=== PATIENT | male | born 1950 | race Caucasian/White ===

== ENCOUNTER 2016-11-07 08:21 | Inpatient (IN) | payer MEDICARE ==
[2016-11-07] VITALS (9 sets, daily range): BP systolic 112–144; BP diastolic 66–81
[~2016-11-07] VITALS: Ht 175.3 cm; Wt 112.6 kg
[~2016-11-07 08:21] MED LIST: ASMANEX; ASPI1TAB PO; BIDE400T PO; BUPR150T5 PO; BUPROPION PO; CARD120C3 PO; CATA0.3T PO; CLON-404 PO; CLOTCRE3 TOP; COLA100C2 OR; COMBVENT; COUM2.5T11 PO; COZA100T OR; DRIS50002 PO; FERR325T3 PO; FORADIL; FURO20TA2; FURO20TA2 PO; FURO40TA2; GLUC500T PO; GLUC850T; HYDR-4267 PO; HYDR25TA6 OR; HYDR50TA7 PO; IPRATROPIUM BROMIDE INH; IRON CR; IRON PO; KDUR PO; LISI40TA PO; LISI40TAB PO; LOPR50TA; LOSA100T36 PO; METF1000 PO; METO25TAB PO; OMEP20TA7 PO; OMEP40CA2 PO; POTA1TAB14 PO; PREDOPD OS; SERT-138 PO; SERT100T; SERTRALINE PO; SIMV40TA2; SIMV40TA2 PO; SIMV80TA OR; SIMV80TA PO; TERA10CA3 PO; TRIA1CR TOP; [UNRECOGNIZED DRUG - CODE]; [UNRECOGNIZED DRUG - CODE] OS; [UNRECOGNIZED DRUG - OTHER]
[2016-11-07 09:39] LABS: ABG BASE EXCESS 2.4 (-2.0-2.0); ABG DEVICE NASAL CANN; ABG HCO3 24.5 MEQ/L (22.0-26.0); ABG PARTIAL PRESSURE CO2 28.6 mmHg (35.0-45.0); ABG PARTIAL PRESSURE O2 72.9 mmHg (75.0-100.0); ABG STANDARD HCO3 26.6 MEQ/L (22.0-26.0); ABG TOTAL CO2 25.3 MEQ/L (23.0-31.0)
[2016-11-07 09:40] LABS: ADD MORPHOLOGY? YES; MEAN CORPUSCULAR HEMOGLOBIN 19.6 pg (27.0-33.0); MEAN CORPUSCULAR HGB CONC 29.3 g/dl (32.0-36.5); MEAN CORPUSCULAR VOLUME 66.9 fl (80.0-96.0); PLATELET COUNT, AUTOMATED 297 k/mm3 (150-450); RED CELL DISTRIBUTION WIDTH 17.1 % (11.5-14.5); WHITE BLOOD COUNT 10.1 K/mm3 (4.0-10.0)
[2016-11-07 10:02] LABS: INR 5.81
[2016-11-07 10:07] LABS: ANION GAP 11 MEQ/L (8-16); BLOOD UREA NITROGEN 25 MG/DL (7-18); CALCIUM LEVEL 8.6 MG/DL (8.8-10.2); CARBON DIOXIDE LEVEL 28 MEQ/L (21-32); CHLORIDE LEVEL 101 MEQ/L (98-107); GLOMERULAR FILTRATION RATE 53.8 (>49); GLUCOSE, FASTING 138 MG/DL (80-110); POTASSIUM SERUM 3.1 MEQ/L (3.5-5.1); SODIUM LEVEL 140 MEQ/L (136-145)
--- NOTE | 2016-11-07 10:09 | REP ---
CHEST, TWO VIEWS: HISTORY: Shortness of breath. COMPARISON: 12/22/2015. An increase in interstitial markings is present in the lungs. The heart is normal in size. The pulmonary vasculature is prominent. Degenerative change is present in the thoracic spine. There are old healed right rib fractures. IMPRESSION: There is an increase in interstitial markings in the lungs consistent with interstitial edema or infiltrates. Signed by Todd Shultz MD 11/07/2016 10:12 A
[2016-11-07] MEDS ORDERED: ISOVUE-370 76% 100ML VIAL (Q9967) As Ordered ONE (10:18)
[2016-11-07 10:27] LABS: DIFF SLIDE NUMBER 148
[2016-11-07 10:34] LABS: ANISOCYTOSIS 1+; HYPOCHROMASIA 3+; MICROCYTOSIS 3+; OVALOCYTES 1+
[2016-11-07] MEDS ORDERED: POTASSIUM CHLORIDE 10 MEQ SR TABLET As Ordered ONE (10:45)
[2016-11-07] MEDS ORDERED: FUROSEMIDE 40 MG/4 ML VIAL (J1940) As Ordered ONE ×2 (10:45→16:36)
--- NOTE | 2016-11-07 11:20 | REP ---
CT pulmonary angiogram: With IV contrast. History: Chest pain and shortness of breath. Comparison studies: December 16, 2015. Contrast dose: 75 cc's of Isovue [address] technique: Helical scanning is acquired and overlapping 1.5 mm and contiguous 3 mm axial images are reformatted. In addition, a 3-D work station is deployed to generate thick slab maximum intensity projection images in sagittal and coronal imaging projections. CT pulmonary angiographic findings: There is good opacification of the pulmonary arterial tree. There is no CT evidence of pulmonary embolism. The thoracic aorta enhances homogeneously and is normal in caliber, course and diameter. Vascular calcification is seen in the left coronary artery distribution. There is a small sliding-type hiatal hernia. No pleural or pericardial effusion is seen. There is a patchy mosaic-like pattern of ground-glass opacity throughout the lung archuleta upper and lower lobes. Some peripheral sparing. This pattern is a little more pronounced than on the December 16, 2015 study. No pleural effusion or mass lesion is seen. Cardiac enlargement is again noted. There are degenerative changes in the thoracic spine. No bony destructive lesion is appreciated. There is a granulomatous calcified nodule in the right upper lobe posteriorly. There are scattered mediastinal lymph nodes again noted unchanged from the comparison study of November 2015. Old healed rib fractures are again noted on the right. Impression: 1. No CT evidence of pulmonary embolism. 2. Patchy ground-glass opacity in the lung parenchyma may reflect pulmonary edema and CHF. It is a bit more pronounced although not new when compared with the November 2015 prior study. 3. Mild cardiomegaly and small hiatal hernia noted. Stable mediastinal lymph nodes. Signed by Jet Alvarez MD 11/07/2016 03:04 P
[2016-11-07] MEDS ORDERED: FURO40TA2 PO (11:22)
[2016-11-07] MEDS ORDERED: POTA10TA16 PO (11:22)
[2016-11-07] MEDS ORDERED: METO25TAB PO (11:22)
[2016-11-07] MEDS ORDERED: FINA5TAB2 PO (11:22)
[2016-11-07] MEDS ORDERED: ZOCO40TA PO (11:22)
[2016-11-07] MEDS ORDERED: VITA-122 PO (11:22)
[2016-11-07] MEDS ORDERED: DOCU100C PO (11:22)
[2016-11-07] MEDS ORDERED: WARF-18 PO ×2 (11:24)
[2016-11-07] MEDS ORDERED: DOCUSATE SODIUM 100 MG CAP PO PRN (13:45)
[2016-11-07] MEDS ORDERED: TRIAMCINOLONE ACET 0.1% CREAM 15 GM TOP PRN (13:45)
--- NOTE | 2016-11-07 14:13 | HPEPDOC ---
Medical History and Physical Date of Admission Nov 07, 2016 at 13:32 History and Physical PRIMARY CARE PROVIDER: [place] ATTENDING: Kaylee Vidal MD CHIEF COMPLAINT: Shortness of breath HISTORY OF PRESENT ILLNESS: This is a 66-year-old male past history of idiopathic pulmonary hemosiderosis, diastolic heart failure, diabetes, hypertension, hyperlipidemia, ulcerative sleep apnea on CPAP at home, atrial fibrillation on Coumadin, iron deficiency anemia, GERD who presents complaining of shortness of breath. Patient states he was walking his dog on Saturday when he started to develop shortness of breath on exertion. The patient states a few days later started developing a nonproductive cough. No fevers or chills. No sick contacts. No recent travels. Patient states is compliant with his Lasix. No changes in his diet. No new medications. Patient states he was told to 3 weeks ago but his INR was greater than 3. He also had an INR checked on Saturday however was not told the result yet. Patient does have super therapeutic INR today he does have minimal epistaxis. States he frequently has dry nose and occasionally has epistaxis. ED physician and checked FOBT which was negative. Patient does not have any overt bleeding at this time. PAST MEDICAL HISTORY:As per HPI PAST SURGICAL HISTORY: Left retina surgery, lung biopsy and bronchoscopy 2004, tonsillectomy, left middle finger amputation SOCIAL HISTORY: History tobacco abuse 30 years however quit many years ago. No alcohol or illicit drug use. Lives with family. FAMILY HISTORY: Noncontributory ALLERGIES: Please see below. REVIEW OF SYSTEMS: HEENT: Denies sore throat/headache CARDIOVASCULAR: Denies chest pain/palpitations RESPIRATORY: + shortness of breath/cough GASTROINTESTINAL: denies nausea/vomiting GENITOURINARY: Denies dysuria/urinary urgency. MUSCULOSKELETAL: Denies myalgias/arthralgias NEUROLOGICAL: Denies any focal weakness Rest of ROS negative. HOME MEDICATIONS: Please see below. PHYSICAL EXAMINATION: Vitals: (see below) General: No acute distress, laying comfortably in bed. HEENT: Moist mucous membranes. Nasal mucosa dry, with minimal dried blood. No active bleeding. Neck: No JVD or lymphadenopathy Cardiac: Irregularly irregular, tachycardic, No murmurs Pulm: Diminished breath sounds and coarse crackles at the bases b/l. No wheezing , no rhonchi Abd: NT/ND + BS. Obese Ext: No edema or cyanosis LABORATORY DATA: See below. IMAGING: CXR 11/07/16 IMPRESSION: There is an increase in interstitial markings in the lungs consistent with interstitial edema or infiltrates. CTA Chest 11/07/16 Impression: 1. No CT evidence of pulmonary embolism. 2. Patchy ground-glass opacity in the lung parenchyma may reflect pulmonary edema and CHF. It is a bit more pronounced although not new when compared with the November 2015 prior study. 3. Mild cardiomegaly and small hiatal hernia noted. Stable mediastinal lymph nodes. MICROBIOLOGY: Please see below. ASSESSMENT/PLAN: Acute decompensated diastolic heart failure- may be related to the patient's current rapid ventricular response. We'll trend cardiac enzymes and obtain echocardiogram. IV Lasix 40 mg every 4 hours. Fluid resections, low-sodium diet. Daily weight. Last EF in 11/2015 was 70% with severe left atrial enlargement. Acute bronchitis- Mild leukocytosis. Afebrile. Consider Antibiotics once INR has trended down as most Abx interfere with Coumadin metabolism. Coumadin coagulopathy- minimal epistaxis. No overt bleeding. ED physician has checked FOBT which is negative. Hemoglobin 8.5 however baseline is between 8.8- 10.1. Given acute decompensated heart failure, and minimal epistaxis we will give patient's oral dose of vitamin K. Repeat INR in a.m. Continue to monitor for bleeding. Atrial fibrillation with rapid ventricular rate- we'll continue the patient's metoprolol. Hold Coumadin given supratherapeutic INR. Restart Coumadin when INR is below 2. Hypertension- continue home meds History of idiopathic pulmonary hemosiderosis Obstructive sleep apnea- patient told to bring his CPAP from home, and may use it while in the hospital. Diabetes mellitus- hold on by mouth meds. Slice counseling for now. Hyperlipidemia- continue statin Iron deficiency anemia- continue for sulfate DVT prophylaxis- patient currently has a supratherapeutic INR. Patient was followed by Dr. Flanagan starting 11/08/16 at 7 AM. Vital Signs Blood pressure 125/67, heart rates 116, respiratory rate of 16, afebrile, oxygen saturation 89% or room air. Laboratory Data Labs 24H Laboratory Tests 2 11/07/16 08:57: B-Type Natriuretic Peptide 95.8 11/07/16 09:24: Activated Partial Thromboplast Time 76.4H, Anion Gap 11, Anisocytosis 1+, Atypical Lymphocytes 1, White Blood Count 10.1H, Red Blood Count 4.34, Hemoglobin 8.5L, Hematocrit 29.0L, Mean Corpuscular Volume 66.9L, Mean Corpuscular Hemoglobin 19.6L, Mean Corpuscular Hemoglobin Concent 29.3L, Red Cell Distribution Width 17.1H, Platelet Count 297, Neutrophils (%) (Auto) , Lymphocytes (%) (Auto) , Monocytes (%) (Auto) , Eosinophils (%) (Auto) , Basophils (%) (Auto) , Neutrophils # (Auto) , Lymphocytes # (Auto) , Monocytes # (Auto) , Eosinophils # (Auto) , Basophils # (Auto) , Blood Urea Nitrogen 25H, Creatinine 1.40H, Sodium Level 140, Potassium Level 3.1L, Chloride Level 101, Carbon Dioxide Level 28, Calcium Level 8.6L, Total Creatine Kinase 92, Creatine Kinase MB 2.4, Creatine Kinase MB Relative Index 2.60, Glomerular Filtration Rate 53.8, Hypochromasia 3+, Large Unclassified Cells # , Large Unclassified Cells % , Lymphocytes (Manual) 5L, Microcytosis 3+, Monocytes (Manual) 3, Neutrophils 91H, Ovalocytes 1+, Platelet Estimate NORMAL, Prothromb Time International Ratio 5.81*H, Prothrombin Time 52.0H, Troponin I < 0.02 11/07/16 09:28: Arterial Blood pH 7.550H, Arterial Blood Partial Pressure CO2 28.6L, Arterial Blood Partial Pressure O2 72.9L, Arterial Blood Total CO2 25.3, Arterial Blood HCO3 24.5, Arterial Blood Base Excess 2.4H, Arterial Blood Oxygen Saturation 95.9, Blood Gas Bicarbonate Standard 26.6H, Oxygen Delivery Device NASAL KATE CBC/BMP Laboratory Tests 11/07/16 09:24 Calcium Level 8.6 L, Total Creatine Kinase 92, Red Blood Count 4.34, Mean Corpuscular Volume 66.9 L, Mean Corpuscular Hemoglobin 19.6 L, Mean Corpuscular Hemoglobin Concent 29.3 L, Red Cell Distribution Width 17.1 H, Neutrophils (%) ( Auto) , Lymphocytes (%) (Auto) , Monocytes (%) (Auto) , Eosinophils (%) (Auto) , Basophils (%) (Auto) , Neutrophils # (Auto) , Lymphocytes # (Auto) , Monocytes # (Auto) , Eosinophils # (Auto) , Basophils # (Auto) Microbiology Microbiology 11/07/16 Blood Culture, Received Pending 11/07/16 Blood Culture, Received Pending 11/07/16 Influenza Virus Type A Antigen - Final, Complete 11/07/16 Influenza Virus Type B Antigen - Final, Complete Home Medications Scheduled Bupropion Hcl (Bupropion HCl Sr) 150 Mg Tab 150 MG PO DAILY Cholecalciferol (Vitamin D3) 1,000 Unit Tab 1,000 UNIT PO DAILY Ferrous Sulfate (Ferrous Sulfate) 325 Mg Tab 325 MG PO DAILY Finasteride (Finasteride) 5 Mg Tab 5 MG PO DAILY Furosemide (Furosemide) 40 Mg Tab 40 MG PO BID Metformin Hydrochloride (Metformin HCl) 1,000 Mg Tab 1,000 MG PO BIDWM Metoprolol Tartrate (Metoprolol Tartrate) 25 Mg Tab 25 MG PO BID Omeprazole (Omeprazole) 40 Mg Cap 40 MG PO ACB Potassium Chloride (Potassium Chloride ER) 10 Meq Tab 20 MEQ PO BIDWM Sertraline HCl (Sertraline HCl) 100 Mg Tab 200 MG PO DAILY Simvastatin - High Dose (Zocor) 40 Mg Tab 40 MG PO QHS Terazosin Hcl (Terazosin HCl) 10 Mg Cap 10 MG PO QHS Warfarin Sod (Warfarin Sodium) 2.5 Mg Tab 2.5 MG PO 3XW SATURDAY,SATURDAY,SATURDAY Warfarin Sod (Warfarin Sodium) 2.5 Mg Tab 5 MG PO 4XWK SATURDAY,SATURDAY,SATURDAY,SATURDAY Scheduled PRN Docusate Sodium (Docusate Sodium) 100 Mg Cap 100 MG PO BID PRN PRN CONSTIPATION Triamcinolone Acet (Triamcinolone Acetonide 0.1% Crm) 1 Dose/15 Gm Cr 1 DOSE TOP BID PRN PRN RASH/ITCHING Allergies Coded Allergies: Albuterol (Unverified Allergy, Unknown, 11/23/15) Amlodipine (Unverified Allergy, Unknown, 06/27/15) Atenolol (Unverified Allergy, Unknown, HEADACHE, 06/27/15) KAYLEE VIDAL MD Nov 07, 2016 14:13
[2016-11-07] MEDS ORDERED: GLUCAGON FOR INJ 1 MG VIAL (J1610) SC PRN (15:30)
[2016-11-07] MEDS ORDERED: DEXTROSE 50% 50 ML SYRINGE IV PRN (15:30)
[2016-11-07] MEDS ORDERED: GLUCOSE 4 GM CHEW TABLET PO PRN (15:30)
[2016-11-07] MEDS ORDERED: PHYTONADIONE 2.5 MG **1/2 TAB PO ONE (16:00)
[2016-11-07] MEDS ORDERED: METOPROLOL TART 50 MG TAB PO ONE (16:00)
[2016-11-07] MEDS ORDERED: METOPROLOL TART 50 MG TAB As Ordered ONE (16:36)
[2016-11-07] MEDS: VITAMIN D 1,000 INTERNATIONAL UNITS TABLET PO SCH (16:39)
[2016-11-07] MEDS: buPROPion **SR TABLET** (ZYBAN) 150MG PO SCH (16:39)
[2016-11-07] MEDS: FINASTERIDE 5 MG TAB PO SCH (16:40)
[2016-11-07] MEDS: FERROUS SULFATE 325MG TAB PO SCH (16:40)
[2016-11-07] MEDS: OMEPRAZOLE 20 MG CAP PO SCH (16:40)
[2016-11-07] MEDS: FUROSEMIDE 40 MG/4 ML VIAL (J1940) IV SCH ×2 (16:40→20:19)
[2016-11-07] MEDS: SERTRALINE 100 MG TAB PO SCH (16:40)
[2016-11-07] MEDS: HumaLOG INSULIN (NovoLOG) PER UNIT SC SCH ×2 (17:30→21:00)
--- NOTE | 2016-11-07 18:28 | EDDOCDS ---
Physician Documentation [facility] Name: Rajesh Quintero Age: 66 yrs Sex: Male : 1950 Arrival Date: 11/07/2016 Time: 08:21 Bed Admit Hold Private MD: Leeanne Godfrey PA-C Disposition: 11/07/16 12:44 Hospitalization ordered by Willie Vidal for Inpatient Admission. Preliminary diagnosis are Acute pulmonary edema, Anemia, unspecified, Hypokalemia. - Bed requested for PCU. - Status is Inpatient Admission. aa3 - Condition is Stable. - Problem is new. - Symptoms are unchanged. Historical: - Allergies: Albuterol (fast heart rate); Atenolol (Wheezing); - Home Meds: 1. bupropion HCl 150 mg Oral TbER 1 tab once daily 2. cholecalciferol (vitamin D3) 1,000 unit oral tab daily 3. clotrimazole 1 % Topical soln 2 times per day 4. docusate sodium 100 mg Oral cap 1 cap 2 times per day 5. ferrous sulfate 325 mg (65 mg iron) Oral cpER daily 6. finasteride 5 mg oral tab 1 tab once daily 7. furosemide 40 mg Oral tab 1 tab 2 times per day 8. metformin 1,000 mg Oral tab 1 tab 2 times per day 9. metoprolol tartrate 25 mg Oral tab 2 times per day 10. omeprazole 20 mg Oral cpDR 2 caps once daily 11. potassium chloride 10 mEq Oral TbER 2 tabs 2 times per day 12. prednisolone acetate 1 % Opht drps 1 drop 4 times per day 13. Zoloft 100 mg Oral tab 2 tabs once daily 14. simvastatin 80 mg Oral tab daily 15. terazosin 10 mg oral cap 1 cap once daily 16. triamcinolone acetonide 0.1 % Topical oint 2 times per day 17. warfarin 2.5 mg Oral tab 1 tab once daily - PMHx: Atrial Fib; Depression; Diabetes - NIDDM: controlled; Heart failure; hyperlipidemia; Hypertension; CHF; COPD; - PSHx: left eye retinal reattachment; lung biopsy; bronchoscopy; Tonsillectomy; left middle finger amputation; - Social history: Smoking status: Patient states former smoker of tobacco. No barriers to communication noted, The patient speaks fluent French, Speaks appropriately for age. - Family history: No immediate family members are acutely ill. - : The pt / caregiver states he / she is on anticoagulants: coumadin. Home medication list is obtained from the patient. - Exposure Risk Screening:: None identified. Vital Signs: 11/07 08:41 BP 125 / 67; Pulse 116; Resp 16; Temp 99.3(TE); Pulse Ox 89% on R/A; Weight 118.84 kg / mlb1 262 lbs (R); Height 5 ft. 9 in. (175.26 cm) (R); Pain 0/10; 09:36 BP 127 / 78 (auto/); mb9 10:08 BP 138 / 70 (auto/); mb9 10:36 BP 140 / 72 (auto/); mb9 11:05 Pulse 106 MON; Pulse Ox 95% on 3 lpm NC; mb9 11:06 BP 123 / 70 (auto/); mb9 11:36 BP 109 / 57 (auto/); mb9 11:36 Pulse 100 MON; Pulse Ox 92% on 3 lpm NC; mb9 12:06 BP 153 / 76 (auto/); mb9 12:06 Pulse 108 MON; Pulse Ox 91% on 3 lpm NC; mb9 12:31 Pulse 106 MON; Pulse Ox 86% on 3 lpm NC; mb9 12:35 Pulse 108 MON; Pulse Ox 94% on 4 lpm NC; mb9 12:36 BP 147 / 81 (auto/); mb9 12:36 Pulse 110 MON; Pulse Ox 93% on 3 lpm NC; mb9 13:06 BP 165 / 79 (auto/); mb9 13:06 Pulse 120 MON; Pulse Ox 93% on 3 lpm NC; mb9 13:36 BP 129 / 73 (auto/); mb9 13:36 Pulse 114 MON; Pulse Ox 92% on 3 lpm NC; mb9 14:06 BP 140 / 81 (auto/); mb9 14:06 BP 140 / 81; Pulse 116 MON; Resp 17; Temp 97.4(T); Pulse Ox 93% on 3 lpm NC; mb9 08:41 Body Mass Index 38.69 (118.84 kg, 175.26 cm) mlb1 MDM: 08:52 Civil Celebrant/Pulse Ox/q 30 min VS ordered. br1 08:52 IV Saline Lock ordered. br1 08:52 Rhythm Strip to chart ordered. br1 08:52 Undress patient appropriately for examination ordered. br1 08:53 Basic Metabolic Profile Ordered. EDMS 08:53 CBC with Diff Ordered. EDMS 08:53 Cardiac Injury Profile Ordered. EDMS 08:53 Troponin Ordered. EDMS 08:53 PT/INR Ordered. EDMS 08:53 PTT Ordered. EDMS 08:53 Chest, 2 View (pa\E\lat) Ordered. EDMS 08:54 -Influenza A&B Rapid Antigen - Nose Ordered. EDMS 08:54 ECG WITH READING ER PHYS+CARDIAG ordered. EDMS 09:20 Call Respiratory ordered. br1 09:22 BNP Ordered. EDMS 09:22 -Arterial Blood Gas Ordered. EDMS 09:22 Call Respiratory complete. lbd 09:42 Oxygen at 4L/Min NC or Home dosage ordered. br1 09:42 RBC MORPH PROF NO CHARGE Ordered. EDMS 09:51 CBC with Diff Reviewed. br1 09:51 -Arterial Blood Gas Reviewed. br1 09:51 -Influenza A&B Rapid Antigen - Nose Reviewed. br1 10:07 -Blood Culture (Adults Only), peripheral from different site, or from device/port/PICC br1 etc. if present ordered. 10:07 PT/INR Reviewed. br1 10:07 PTT Reviewed. br1 10:08 -Blood Culture Ordered. EDMS 10:09 BED REQUEST+ADM ordered. EDMS 10:10 Furosemide 40 mg IVP once ordered. br1 10:10 Potassium Chloride Extended Release Tablet 40 mEq PO once ordered. br1 10:11 CT Chest Angio R/O PE Ordered. EDMS 10:27 -Blood Culture (Adults Only), peripheral from different site, or from device/port/PICC lbd etc. if present complete. 10:29 DIFFERENTIAL NO CHARGE Ordered. EDMS 10:29 BLOOD CULTURES Ordered. EDMS 11:12 Financial registration complete. mm15 11:22 [facility] [place] was [place] into [employer] and attached to record. mm15 11:45 Basic Metabolic Profile Reviewed. br1 11:45 CBC with Diff Reviewed. br1 11:45 Cardiac Injury Profile Reviewed. br1 11:45 Troponin Reviewed. br1 11:45 BNP Reviewed. br1 11:45 RBC MORPH PROF NO CHARGE Reviewed. br1 11:45 Chest, 2 View (pa\E\lat) Reviewed. br1 11:45 CT Chest Angio R/O PE Reviewed. br1 13:37 Admission / Observation Status ordered. EDMS 13:38 ECHOCARD,DOPPLER/COLOR FLOW ordered. EDMS 13:39 CARDIAC INJURY PROFILE Ordered. EDMS 13:39 TROPONIN Ordered. EDMS 13:41 COMPLETE BLOOD COUNT Ordered. EDMS 13:42 BASIC METABOLIC PROFILE Ordered. EDMS 13:42 MAGNESIUM LEVEL Ordered. EDMS 15:38 2 GRAM SODIUM DIET ordered. EDMS Administered Medications: 10:50 Drug: Furosemide 40 mg [furosemide 10 mg/mL injection solution (4 mL)] Route: IVP; kpj Site: right antecubital; 10:50 Drug: Potassium Chloride 40 mEq [potassium chloride ER 10 mEq tablet,extended release kpj (4 tabs)] Route: PO; Signatures: Dispatcher [employer] EDMS Gisselle Aguirre, Teacher Unit lbd Audrey Nath RN RN kpj Marin Jones RN RN mlb1 Stephen Raines MD MD br1 Janet Yusuf mm15 Pretty GoveaRN RN aa3 Marin Girard,RN RN mb9 The chart was reviewed and I authenticate all verbal orders and agree with the evaluation and treatment provided.Corrections: (The following items were deleted from the chart) 15:38 11:53 CARDIAC DIET PLASTIC TAPIA+DIET ordered. EDMS EDMS 15:38 13:38 2 GRAM SODIUM DIET ordered. EDMS EDMS Attachments: 11:22 [facility] [place] [id number] MTDD
--- NOTE | 2016-11-07 18:28 | EDDOCDS ---
Nurse's Notes [facility] Name: Rajesh Quintero Age: 66 yrs Sex: Male : 1950 Arrival Date: 11/07/2016 Time: 08:21 Bed Admit Hold Private MD: Leeanne Godfrey PA-C Diagnosis: Acute pulmonary edema;Anemia, unspecified;Hypokalemia Presentation: 11/07 08:34 Presenting complaint: Patient states: SOB began two days ago. Adult Sepsis Screening: mlb1 The patient does not have new or worsening altered mentation. Patient's respiratory rate is less than 22. Systolic blood pressure is greater than 100. Patient has a qSOFA score of 0- Negative Sepsis Screen. Suicide/Homicide risk assessment- the patient denies having any suicidal and/or homicidal ideations and does not present with any other emotional, behavioral or mental health complaints. 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 Transition of care: patient was not received from another setting of care. 08:34 Acuity: URSULA Level 3 mlb1 08:34 Method Of Arrival: Walkin/Carried/Asstd mlb1 Triage Assessment: 08:42 General: Appears in no apparent distress, Behavior is appropriate for age, cooperative. mlb1 Pain: Denies pain. Respiratory: Onset: The symptoms/episode began/occurred gradually, Airway is patent Respiratory effort is even, unlabored. Historical: - Allergies: Albuterol (fast heart rate); Atenolol (Wheezing); - Home Meds: 1. bupropion HCl 150 mg Oral TbER 1 tab once daily 2. cholecalciferol (vitamin D3) 1,000 unit oral tab daily 3. clotrimazole 1 % Topical soln 2 times per day 4. docusate sodium 100 mg Oral cap 1 cap 2 times per day 5. ferrous sulfate 325 mg (65 mg iron) Oral cpER daily 6. finasteride 5 mg oral tab 1 tab once daily 7. furosemide 40 mg Oral tab 1 tab 2 times per day 8. metformin 1,000 mg Oral tab 1 tab 2 times per day 9. metoprolol tartrate 25 mg Oral tab 2 times per day 10. omeprazole 20 mg Oral cpDR 2 caps once daily 11. potassium chloride 10 mEq Oral TbER 2 tabs 2 times per day 12. prednisolone acetate 1 % Opht drps 1 drop 4 times per day 13. Zoloft 100 mg Oral tab 2 tabs once daily 14. simvastatin 80 mg Oral tab daily 15. terazosin 10 mg oral cap 1 cap once daily 16. triamcinolone acetonide 0.1 % Topical oint 2 times per day 17. warfarin 2.5 mg Oral tab 1 tab once daily - PMHx: Atrial Fib; Depression; Diabetes - NIDDM: controlled; Heart failure; hyperlipidemia; Hypertension; CHF; COPD; - PSHx: left eye retinal reattachment; lung biopsy; bronchoscopy; Tonsillectomy; left middle finger amputation; - Social history: Smoking status: Patient states former smoker of tobacco. No barriers to communication noted, The patient speaks fluent Ukrainian, Speaks appropriately for age. - Family history: No immediate family members are acutely ill. - : The pt / caregiver states he / she is on anticoagulants: coumadin. Home medication list is obtained from the patient. - Exposure Risk Screening:: None identified. Screenin:29 Screening information is obtained from the patient. Fall risk: No risks identified. mcp Assistance ADL's: requires no assistance with activities of daily living. Abuse/DV Screen: The patient / caregiver reports he/she is: not in a situation that causes fear, pain or injury. Nutritional screening: No deficits noted. Advance Directives: There is no active DNR order. home support is adequate. Assessment: 09:27 General: Appears in no apparent distress, comfortable, Behavior is cooperative. Pain: mcp Denies pain. Neurological: No deficits noted. Cardiovascular: Rhythm is atrial fibrillation With PVC's. Respiratory: Airway is patent Respiratory effort is even, unlabored, Breath sounds are clear bilaterally. Breath sounds are diminished bilaterally. Derm: Skin is pink, warm & dry. 10:15 General: Appears in no apparent distress, Behavior is cooperative. Neurological: mcp Respiratory: Airway is patent Respiratory effort is even, unlabored. Derm: Skin is pink, warm & dry. 10:20 General: Pt stood at side of bed to void--voided small amount dark lawrence urine. Pts mcp pulse ox dropped to 80's--oxygen increased to 3L NC and Dr Raines notified. 10:59 General: Appears in no apparent distress, comfortable, Behavior is cooperative. Pain: mcp Denies pain. Neurological: No deficits noted. Respiratory: Airway is patent Respiratory effort is even, unlabored. Derm: Skin is pink, warm & dry. 11:40 General: Appears in no apparent distress, comfortable, Behavior is appropriate for age, mb9 cooperative. Pain: Denies pain. Neurological: Level of Consciousness is awake, alert, Oriented to person, place, time. Respiratory: Airway is patent Breath sounds are clear bilaterally. Breath sounds are diminished in left posterior lower lobe, right posterior middle lobe and right posterior lower lobe. 12:37 Reassessment: Patient appears in no apparent distress at this time. Adult Sepsis mb9 Screening: The patient does not have new or worsening altered mentation. Patient's respiratory rate is less than 22. Systolic blood pressure is greater than 100. Patient has a qSOFA score of 0- Negative Sepsis Screen. General: Appears in no apparent distress, comfortable, Behavior is cooperative. Pain: The patient reports he/she is under the care of a pattern painter and has a current pain contract. Respiratory: Airway is patent Breath sounds are clear bilaterally. Breath sounds are diminished in left posterior lower lobe, right posterior middle lobe and right posterior lower lobe. 13:29 Reassessment: Patient appears in no apparent distress at this time. General: Dr Vidal in mb9 to see pt.. Respiratory: Airway is patent Respiratory effort is even, unlabored. 14:10 Reassessment: Patient appears in no apparent distress at this time. Adult Sepsis mb9 Screening: The patient does not have new or worsening altered mentation. Patient's respiratory rate is less than 22. Systolic blood pressure is greater than 100. Patient has a qSOFA score of 0- Negative Sepsis Screen. General: Appears in no apparent distress, comfortable, Behavior is fussy. Pain: Denies pain. Respiratory: Airway is patent Respiratory effort is even, unlabored. 15:00 General: Report taken from Miguelangel Girard RN. All further charting will be in [facility].. aa3 Vital Signs: 08:41 BP 125 / 67; Pulse 116; Resp 16; Temp 99.3(TE); Pulse Ox 89% on R/A; Weight 118.84 kg mlb1 (R); Height 5 ft. 9 in. (175.26 cm) (R); Pain 0/10; 09:36 BP 127 / 78 (auto/); mb9 10:08 BP 138 / 70 (auto/); mb9 10:36 BP 140 / 72 (auto/); mb9 11:05 Pulse 106 MON; Pulse Ox 95% on 3 lpm NC; mb9 11:06 BP 123 / 70 (auto/); mb9 11:36 BP 109 / 57 (auto/); mb9 11:36 Pulse 100 MON; Pulse Ox 92% on 3 lpm NC; mb9 12:06 BP 153 / 76 (auto/); mb9 12:06 Pulse 108 MON; Pulse Ox 91% on 3 lpm NC; mb9 12:31 Pulse 106 MON; Pulse Ox 86% on 3 lpm NC; mb9 12:35 Pulse 108 MON; Pulse Ox 94% on 4 lpm NC; mb9 12:36 BP 147 / 81 (auto/); mb9 12:36 Pulse 110 MON; Pulse Ox 93% on 3 lpm NC; mb9 13:06 BP 165 / 79 (auto/); mb9 13:06 Pulse 120 MON; Pulse Ox 93% on 3 lpm NC; mb9 13:36 BP 129 / 73 (auto/); mb9 13:36 Pulse 114 MON; Pulse Ox 92% on 3 lpm NC; mb9 14:06 BP 140 / 81 (auto/); mb9 14:06 BP 140 / 81; Pulse 116 MON; Resp 17; Temp 97.4(T); Pulse Ox 93% on 3 lpm NC; mb9 08:41 Body Mass Index 38.69 (118.84 kg, 175.26 cm) mlb1 Vitals: 08:41 Log In Time: November 07, 2016 at 08:19. mlb1 ED Course: 08:23 Patient visited by Janet Yusuf. mm15 08:23 Leeanne Godfrey is Private Physician. mm15 08:23 Patient moved to Waiting mm15 08:34 Patient visited by Marin Jones, RN. mlb1 08:35 Triage Initiated mlb1 08:42 Patient visited by Marin Jones, RN. mlb1 08:42 Patient moved to 15 mlb1 09:09 Stephen Raines MD is Attending Physician. br1 09:18 EKG done. (by ED staff). Reviewed by Stephen Raines MD. rn1 09:20 Patient visited by Stephen Raines MD. br1 09:26 BNP Sent. mcp 09:26 PTT Sent. [facility] 09:26 PT/INR Sent. [facility] 09:26 Basic Metabolic Profile Sent. [facility] 09:26 CBC with Diff Sent. [facility] 09:26 Cardiac Injury Profile Sent. [facility] 09:26 Troponin Sent. [facility] 09:27 Inserted saline lock: 20 gauge in right antecubital area and blood collected. The [facility] patient tolerated the procedure well. Labs drawn. (by ED staff). Sent per order to lab. 09:30 Patient visited by Alva Gonzalez RN. [facility] 09:30 The patient / caregiver is instructed regarding the plan of care and ED course. Patient [facility] has correct armband on for positive identification. Placed in gown. Bed in low position. Call light in reach. Side rails up X2. Adult w/ patient. site monitor on. Pulse ox on. NIBP on. 09:35 -Arterial Blood Gas Sent. kt1 10:00 Notified attending ED physician of Critical lab value. Dr Raines notified of PT 52.0 kpj and INR 5.81. 10:34 Chest, 2 View (pa\E\lat) Returned. EDMS 10:40 BLOOD CULTURES Sent. kpj 10:40 DIFFERENTIAL NO CHARGE Sent. kpj 10:59 Patient visited by Alva Gonzalez RN. [facility] 11:21 CT Chest Angio R/O PE Returned. EDMS 11:22 [facility] Payment Agreement was scanned into [employer] and attached to record. mm15 11:40 Patient visited by Marin Girard,LENO. mb9 12:37 Patient visited by Marin Girard RN. mb9 12:44 Willie Vidal is Hospitalizing Provider. br1 13:29 Diet tray given. mb9 14:06 No procedures done that require assistance. mb9 14:16 Patient moved to Admit Hold kpj 15:12 Patient moved to 21 kpj 15:12 Patient moved to Admit Hold kpj 15:32 CT Chest Angio R/O PE Returned. EDMS Administered Medications: 10:50 Drug: Furosemide 40 mg [furosemide 10 mg/mL injection solution (4 mL)] Route: IVP; kpj Site: right antecubital; 10:50 Drug: Potassium Chloride 40 mEq [potassium chloride ER 10 mEq tablet,extended release kpj (4 tabs)] Route: PO; Output: 11:36 Urine: 100.00ml (Voided); Total: 100.00ml. mb9 12:21 Urine: 100.00ml (Voided); Total: 200.00ml. mb9 12:38 Urine: 100.00ml (Voided); Total: 300.00ml. mb9 14:06 Urine: 100.00ml (Voided); Total: 400.00ml. mb9 RT: 09:35 ABG's drawn from right radial artery pressure held for 5 minutes no bleeding noted kt1 pressure bandage applied specimen sent pt. tolerated well. Order Results: Lab Order: Basic Metabolic Profile; SPEC'M 11/07/16 09:24 Test: GLUCOSE, FASTING; Value: 138; Range: 80-110; Abnormal: Above high normal; Units: MG/DL; Status: F Test: BLOOD UREA NITROGEN; Value: 25; Range: 7-18; Abnormal: Above high normal; Units: MG/DL; Status: F Test: CREATININE FOR GFR; Value: 1.40; Range: 0.70-1.30; Abnormal: Above high normal; Units: MG/DL; Status: F Test: GLOMERULAR FILTRATION RATE; Value: 53.8; Range: >49; Status: F Test: SODIUM LEVEL; Value: 140; Range: 136-145; Units: MEQ/L; Status: F Test: POTASSIUM SERUM; Value: 3.1; Range: 3.5-5.1; Abnormal: Below low normal; Units: MEQ/L; Status: F Test: CHLORIDE LEVEL; Value: 101; Range: 98-107; Units: MEQ/L; Status: F Test: CARBON DIOXIDE LEVEL; Value: 28; Range: 21-32; Units: MEQ/L; Status: F Test: ANION GAP; Value: 11; Range: 8-16; Units: MEQ/L; Status: F Test: CALCIUM LEVEL; Value: 8.6; Range: 8.8-10.2; Abnormal: Below low normal; Units: MG/DL; Status: F Test Note: ; Units are mL/min/1.73 m2 Chronic Kidney Disease Staging per NKF: Stage I & II GFR >=60 Normal to Mildly Decreased Stage III GFR 30-59 Moderately Decreased Stage IV GFR 15-29 Severely Decreased Stage V GFR <15 Very Little GFR Left ESRD GFR <15 on FARM SERVICE ADVISER Lab Order: CBC with Diff; SPEC'M 11/07/16 09:24 Test: WHITE BLOOD COUNT; Value: 10.1; Range: 4.0-10.0; Abnormal: Above high normal; Units: K/mm3; Status: F Test: RED BLOOD COUNT; Value: 4.34; Range: 4.30-6.10; Units: M/mm3; Status: F Test: HEMOGLOBIN; Value: 8.5; Range: 14.0-18.0; Abnormal: Below low normal; Units: g/dl; Status: F Test: HEMATOCRIT; Value: 29.0; Range: 42.0-52.0; Abnormal: Below low normal; Units: %; Status: F Test: MEAN CORPUSCULAR VOLUME; Value: 66.9; Range: 80.0-96.0; Abnormal: Below low normal; Units: fl; Status: F Test: MEAN CORPUSCULAR HEMOGLOBIN; Value: 19.6; Range: 27.0-33.0; Abnormal: Below low normal; Units: pg; Status: F Test: MEAN CORPUSCULAR HGB CONC; Value: 29.3; Range: 32.0-36.5; Abnormal: Below low normal; Units: g/dl; Status: F Test: RED CELL DISTRIBUTION WIDTH; Value: 17.1; Range: 11.5-14.5; Abnormal: Above high normal; Units: %; Status: F Test: PLATELET COUNT, AUTOMATED; Value: 297; Range: 150-450; Units: k/mm3; Status: F Test: NEUTROPHILS %; Range: 36.0-66.0; Abnormal: Above high normal; Units: %; Status: F Test: LYMPH %; Range: 24.0-44.0; Abnormal: Below low normal; Units: %; Status: F Test: MONO %; Range: 0.0-5.0; Units: %; Status: F Test: EOS %; Range: 0.0-3.0; Units: %; Status: F Test: BASO %; Range: 0.0-1.0; Units: %; Status: F Test: LARGE UNSTAINED CELL %; Range: 0.0-4.0; Units: %; Status: F Test: NEUTROPHILS #; Range: 1.8-7.7; Abnormal: Above high normal; Units: K/mm3; Status: F Test: LYMPH #; Range: 1.5-4.5; Abnormal: Below low normal; Units: K/mm3; Status: F Test: MONO #; Range: 0.0-0.8; Units: K/mm3; Status: F Test: EOS #; Range: 0.0-0.50; Units: K/mm3; Status: F Test: BASO #; Range: 0.0-0.2; Units: K/mm3; Status: F Test: LARGE UNSTAINED CELL #; Range: 0.0-0.4; Units: K/mm3; Status: F Test Note: ; --- 11/07/16 1027 --- NEUT % previously reported as: 89.7 H % Test: NEUTROPHILS; Value: 91; Range: 35-75; Abnormal: Above high normal; Units: %; Status: F Test: LYMPHOCYTES; Value: 5; Range: 16-52; Abnormal: Below low normal; Units: %; Status: F Test: MONOCYTES; Value: 3; Range: 0-8; Units: %; Status: F Test: ATYPICAL LYMPH; Value: 1; Range: 0-5; Units: %; Status: F Test: HYPOCHROMASIA; Value: 3+; Status: F Test: ANISOCYTOSIS; Value: 1+; Status: F Test: MICROCYTOSIS; Value: 3+; Status: F Test: OVALOCYTES; Value: 1+; Status: F Lab Order: Cardiac Injury Profile; SPEC11/07/16 09:24 Test: CPK CREATINE PHOSPHOKINASE; Value: 92; Range: 39-308; Units: U/L; Status: F Test: CK-MB VALUE MASS; Value: 2.4; Range: 0.0-3.6; Units: NG/ML; Status: F Test: MB/CK RELATIVE INDEX; Value: 2.60; Range: < OR =4; Status: F Test Note: ; DIAGNOSIS CRITERIA MMB ng/ml Relative Index (RI) NON-AMI < or = 5 N/A BHAGAT ZONE > 5 < or = 4 AMI > 5 > 4 Lab Order: Troponin; SPEC'11/07/16 09:24 Test: TROPONIN I; Value: < 0.02; Range: < 0.10; Units: NG/ML; Status: F Test Note: ; Troponin I Reference Interval for [employer] [place] LOCI: 99th Percentile= 0.00-0.045 ng/ml Risk Stratification: <= 0.10 ng/ml Decreased Risk for Adverse Clinical Events. 0.10-1.50 ng/ml Increased Risk for Adverse Clinical Events. Evaluation of additional criterion and/or repeat testing in 2-6 hours is suggested to rule out myocardial damage. >= 1.50 ng/ml Indicative of Myocardial Injury. Lab Order: PT/INR; SPEC'M 11/07/16 09:24 Test: PROTHROMBIN TIME; Value: 52.0; Range: 12.3-14.5; Abnormal: Above high normal; Units: SECONDS; Status: F Test: INR; Value: 5.81; Abnormal: Above upper panic limits; Status: F Test Note: ; THERAPUTIC HUMAN INR VALUES INDICATIONS NORMAL RANGES PROPHYLAXIS/TREATMENT OF: VENOUS THROMBOSIS 2.0-3.0 PULMONARY EMBOLISM 2.0-3.0 PREVENTION OF SYSTEMIC EMBOLISM FROM: TISSUE HEART VALVES 2.0-3.0 ACUTE MYOCARDIAL INFARCTION 2.0-3.0 VALVULAR HEART DISEASE 2.0-3.0 ATRIAL FIBRILLATION 2.0-3.0 MECHANICAL VALVES(HIGH RISK) 2.5-3.5 RECURRENT MYOCARDIAL INFARCTION 2.5-3.5 Lab Order: PTT; SPEC'M 11/07/16 09:24 Test: PARTIAL THROMBOPLASTIN TIME; Value: 76.4; Range: 26.6-37.1; Abnormal: Above high normal; Units: SECONDS; Status: F Lab Order: -Influenza A&B Rapid Antigen - Nose; SPEC'M 11/07/16 08:57 Test: INFLUENZA A RAPID SCR by ICA; Value: INFLUENZA A RESULTS NEGATIVE; Status: F Test: INFLUENZA A RAPID SCR by ICA; Value: Comments:; Status: F Test: INFLUENZA B RAPID SCR by ICA; Value: INFLUENZA B RESULTS NEGATIVE; Status: F Test Note: ; The Influenza test is a direct rapid immunoassay for the qualitative detection of Influenza viral antigen. Cell culture (Viral Culture) testing should be considered to confirm NEGATIVE results and to assist in detecting other viruses that can provide similar clinical symptoms. Please contact the lab within 24 hours ([phone] if confirmatory testing is desired. Lab Order: BNP; SPEC'M 17 08:57 Test: BRAIN NATRIURETIC PEPTIDE; Value: 95.8; Range: <100; Units: PG/ML; Status: F Lab Order: -Arterial Blood Gas; [facility]07[facility] 09:28 Test: ABG pH (ARTERIAL); Value: 7.550; Range: 7.350-7.450; Abnormal: Above high normal; Units: UNITS; Status: F Test: ABG PARTIAL PRESSURE CO2; Value: 28.6; Range: 35.0-45.0; Abnormal: Below low normal; Units: mmHg; Status: F Test: ABG PARTIAL PRESSURE O2; Value: 72.9; Range: 75.0-100.0; Abnormal: Below low normal; Units: mmHg; Status: F Test: ABG TOTAL CO2; Value: 25.3; Range: 23.0-31.0; Units: MEQ/L; Status: F Test: ABG HCO3; Value: 24.5; Range: 22.0-26.0; Units: MEQ/L; Status: F Test: ABG BASE EXCESS; Value: 2.4; Range: -2.0-2.0; Abnormal: Above high normal; Status: F Test: ABG STANDARD HCO3; Value: 26.6; Range: 22.0-26.0; Abnormal: Above high normal; Units: MEQ/L; Status: F Test: ABG O2 SATURATION; Value: 95.9; Range: 95.0-99.0; Units: %; Status: F Test: ABG DEVICE; Value: NASAL KATE; Status: F Lab Order: RBC MORPH PROF NO CHARGE; 11/07/16 09:24 Test: PLATELET ESTIMATE; Value: NORMAL; Range: NORMAL; Status: F Lab Order: Fingerstick Blood Sugar; 11/07/16 17:48 Test: BEDSIDE GLUCOSE; Value: 111; Range: 80-115; Units: MG/DL; Status: F Radiology Order: Chest, 2 View (pa\E\lat) Test: Chest, 2 View (pa\E\lat) REASON FOR EXAMINATION: Shortness of Breath; CHEST, TWO VIEWS:; ; HISTORY: Shortness of breath.; ; COMPARISON: 12/22/2015.; ; An increase in interstitial markings is present in the lungs. The heart is; normal in size. The pulmonary vasculature is prominent. Degenerative change is; present in the thoracic spine. There are old healed right rib fractures.; ; IMPRESSION:; ; There is an increase in interstitial markings in the lungs consistent with; interstitial edema or infiltrates.; ; ; Signed by; Todd Shultz MD 11/07/2016 10:12 A; Radiology Order: CT Chest Angio R/O PE Test: CT Chest Angio R/O PE REASON FOR EXAMINATION: Chest Pain;Shortness of Breath; CT pulmonary angiogram: With IV contrast.; ; History: Chest pain and shortness of breath.; ; Comparison studies: December 16, 2015.; ; Contrast dose: 75 cc's of Isovue 370 are administered intravenously.; ; CT technique: Helical scanning is acquired and overlapping 1.5 mm and contiguous; 3 mm axial images are reformatted. In addition, a 3-D work station is deployed; to generate thick slab maximum intensity projection images in sagittal and; coronal imaging projections.; ; CT pulmonary angiographic findings: There is good opacification of the pulmonary; arterial tree. There is no CT evidence of pulmonary embolism. The thoracic; aorta enhances homogeneously and is normal in caliber, course and diameter.; Vascular calcification is seen in the left coronary artery distribution. There; is a small sliding-type hiatal hernia. No pleural or pericardial effusion is; seen. There is a patchy mosaic-like pattern of ground-glass opacity throughout; the lung archuleta upper and lower lobes. Some peripheral sparing. This pattern is; a little more pronounced than on the December 16, 2015 study.; ; No pleural effusion or mass lesion is seen. Cardiac enlargement is again noted.; There are degenerative changes in the thoracic spine. No bony destructive lesion; is appreciated. There is a granulomatous calcified nodule in the right upper; lobe posteriorly. There are scattered mediastinal lymph nodes again noted; unchanged from the comparison study of November 2015. Old healed rib fractures are; again noted on the right.; ; Impression:; ; 1. No CT evidence of pulmonary embolism.; ; 2. Patchy ground-glass opacity in the lung parenchyma may reflect pulmonary; edema and CHF. It is a bit more pronounced although not new when compared with; the November 2015 prior study.; ; 3. Mild cardiomegaly and small hiatal hernia noted. Stable mediastinal lymph; nodes.; ; ; Signed by; Jet Alvarez MD 11/07/2016 03:04 P; Outcome: 12:44 Decision to Hospitalize by Provider. br1 14:06 Discharge Assessment: Patient awake, alert and oriented x 3. No cognitive and/or mb9 functional deficits noted. Patient verbalized understanding of disposition instructions. patient administered narcotics - no. The following High Risk Discharge criteria are identified: None. Admitted to Med/Surg accompanied by tech. Condition: good Condition: stable Condition: improved. No special radiology studies were completed. Property :Personal belongings accompany Pt. 18:17 Admission hand-off: Report called to Manda Orozco RN. aa3 18:27 Patient left the ED. aa3 Signatures: Dispatcher [facility] EDNY Audrey Nath RN RN Alva Spaulding RN RN mcp Barney, Michael B RN RN mlManda Falcon kt1 Stephen Raines MD MD br1 Janet Yusuf mm15 Pretty Govea RN RN aa3 Marin Girard RN RN mb9 Reji Alvarez rn1 Corrections: (The following items were deleted from the chart) 10:59 10:15 General: Appears cachectic, Behavior is cooperative, [facility] 10:59 10:15 Pain: The patient reports he/she is under the care of a pain management [facility] specialist and has a current pain contract. [facility] 10:59 10:58 General: Appears [facility] MTDD
[2016-11-07 19:14] LABS: MEAN CORPUSCULAR HEMOGLOBIN 19.7 pg (27.0-33.0); MEAN CORPUSCULAR HGB CONC 29.9 g/dl (32.0-36.5); RED CELL DISTRIBUTION WIDTH 17.6 % (11.5-14.5); WHITE BLOOD COUNT 8.6 K/mm3 (4.0-10.0)
[2016-11-07 19:35] LABS: CALCIUM LEVEL 8.1 MG/DL (8.8-10.2); CREATININE FOR GFR 1.41 MG/DL (0.70-1.30); GLOMERULAR FILTRATION RATE 53.4 (>49); MAGNESIUM LEVEL 1.6 MG/DL (1.8-2.4)
[2016-11-07 19:36] LABS: POTASSIUM SERUM 2.9 MEQ/L (3.5-5.1)
[2016-11-07] MEDS ORDERED: MAG SULF 1GM/100ML (MAG RUN) 1 GM in APPROPRIATE DILUENT 1 EA IV ONE ×2 (19:45→22:00)
[2016-11-07] MEDS ORDERED: POTASSIUM CHLORIDE 10 MEQ SR TABLET PO ONE ×3 (19:45→22:30)
[2016-11-07 20:21] LABS: INR 6.37
[2016-11-07] MEDS ORDERED: MAG SULF 1GM/100ML (MAG RUN) 1 GM in APPROPRIATE DILUENT 1 EA IV SCH (21:00)
--- NOTE | 2016-11-07 21:51 | ECGEPIP ---
Stationary ECG Study [facility] - ED Test Date: 2016-11-07 Pat Name: CHETAN DONAHUE Department: Room: - Gender: M Registered Nurse Ambulatory: rn : 1950 Requested By: KAE Jung Order Number: [id number] Reading MD: Laine Noe Measurements Intervals [place] Rate: 101 P: [place]: 0 QRS: -37 QRSD: 85 T: 122 QT: 336 QTc: 437 Interpretive Statements ATRIAL FIBRILLATION WITH RAPID VENTRICULAR RESPONSE INFERIOR MYOCARDIAL INFARCTION, PROBABLY OLD MODERATE T-WAVE ABNORMALITY, CONSIDER ISCHEMIA SIMILAR 12/16/15 Electronically Signed On 11-07-2016 21:51:30 EST by Laine Noe
[2016-11-07] MEDS: SIMVASTATIN 40 MG TAB PO SCH (22:01)
[2016-11-07] MEDS: METOPROLOL TART 25 MG TABLET PO SCH (22:01)
[2016-11-07] MEDS: TERAZOSIN 5 MG CAP PO SCH (22:01)
[2016-11-08 00:54] VITALS: BP_SYST 120; BP_SYST 99; BP_DIAS 68; BP_DIAS 69
[2016-11-08] MEDS: FUROSEMIDE 40 MG/4 ML VIAL (J1940) IV SCH ×7 (01:00→23:51)
[2016-11-08 01:49] LABS: MEAN CORPUSCULAR HEMOGLOBIN 20.3 pg (27.0-33.0); MEAN CORPUSCULAR HGB CONC 30.1 g/dl (32.0-36.5); MEAN CORPUSCULAR VOLUME 67.6 fl (80.0-96.0); RED CELL DISTRIBUTION WIDTH 17.2 % (11.5-14.5); WHITE BLOOD COUNT 7.3 K/mm3 (4.0-10.0)
[2016-11-08 02:15] LABS: ANION GAP 10 MEQ/L (8-16); BLOOD UREA NITROGEN 26 MG/DL (7-18); CALCIUM LEVEL 8.3 MG/DL (8.8-10.2); CARBON DIOXIDE LEVEL 28 MEQ/L (21-32); CHLORIDE LEVEL 103 MEQ/L (98-107); GLOMERULAR FILTRATION RATE 53.8 (>49); GLUCOSE, FASTING 119 MG/DL (80-110); POTASSIUM SERUM 3.3 MEQ/L (3.5-5.1); SODIUM LEVEL 141 MEQ/L (136-145)
[2016-11-08 05:12] VITALS: BP 118/70
[2016-11-08 05:26] LABS: MEAN CORPUSCULAR HEMOGLOBIN 19.5 pg (27.0-33.0); MEAN CORPUSCULAR HGB CONC 29.3 g/dl (32.0-36.5); MEAN CORPUSCULAR VOLUME 66.5 fl (80.0-96.0); RED CELL DISTRIBUTION WIDTH 17.1 % (11.5-14.5); WHITE BLOOD COUNT 7.5 K/mm3 (4.0-10.0)
[2016-11-08 05:30] LABS: CALCIUM LEVEL 8.4 MG/DL (8.8-10.2); CREATININE FOR GFR 1.33 MG/DL (0.70-1.30); GLOMERULAR FILTRATION RATE 57.1 (>49); INR 2.65; MAGNESIUM LEVEL 2.3 MG/DL (1.8-2.4); POTASSIUM SERUM 3.3 MEQ/L (3.5-5.1)
[2016-11-08] MEDS ORDERED: POTASSIUM CHLORIDE 10 MEQ SR TABLET PO ONE ×2 (06:30→15:15)
[2016-11-08 08:00] VITALS: BP 134/75
[2016-11-08] MEDS: HumaLOG INSULIN (NovoLOG) PER UNIT SC SCH ×4 (08:16→20:27)
[2016-11-08] MEDS: buPROPion **SR TABLET** (ZYBAN) 150MG PO SCH (08:17)
[2016-11-08] MEDS: METOPROLOL TART 25 MG TABLET PO SCH ×2 (08:18→20:19)
[2016-11-08] MEDS: OMEPRAZOLE 20 MG CAP PO SCH (08:18)
[2016-11-08] MEDS: FINASTERIDE 5 MG TAB PO SCH (08:18)
[2016-11-08] MEDS: VITAMIN D 1,000 INTERNATIONAL UNITS TABLET PO SCH (08:18)
[2016-11-08] MEDS: SERTRALINE 100 MG TAB PO SCH (08:18)
[2016-11-08] MEDS: FERROUS SULFATE 325MG TAB PO SCH (08:18)
[2016-11-08 12:00] VITALS: BP 133/71
--- NOTE | 2016-11-08 12:29 | IPN ---
DATE: 11/08/2016 SUBJECTIVE: The patient today tells me that he is feeling a little bit better, however he still has lightheadedness when standing, still has dyspnea on exertion when attempting to walk to the bathroom, but he does state that it is somewhat better than it was yesterday. He denies chest pain, fevers, chills, nausea, vomiting or diarrhea or diaphoresis. OBJECTIVE: Vital signs: Temperature 97.8,l pulse 75, respiratory rate 18, blood pressure 134/75, oxygen sat 94% on 2 liters nasal cannula. GENERAL: He is a morbidly obese, man sitting up in bed, he does not appear to be in any acute distress. HEENT: Cranial nerves II through XII are grossly intact. He does appear to have conjunctival pallor. He has moist mucous membranes. No elevation of CVP. CARDIOVASCULAR EXAM: S1, S2 irregularly irregular but not tachycardiac. RESPIRATORY EXAM: Actually fairly clear to auscultation with no appreciable rales. ABDOMINAL EXAM: Is grossly obese. EXTREMITIES: No clubbing, cyanosis or appreciable edema. LABORATORY DATA: WBC 7.5, hemoglobin 8.2, hematocrit 27.9, platelet count 288. Chemistry panel: Sodium 143, potassium 3.3, repleted. Chloride 104, bicarbonate 29, BUN 27, creatinine 1.3. He had three sets of cardiac enzymes, which were negative. An INR which is 2.6 down from 6.3 yesterday evening. Arterial blood gas revealed a pH of 7.55, CO2 of 28.6, and a PO2 of 72.9. Blood cultures: One bottle preliminary growing gram positive cocci in clusters. A second bottle is preliminary negative. An influenza swab is negative. IMAGING: Patient did have a CT angiography of the chest which reveals no pulmonary embolism (PE), patchy ground glass opacity in the lung parenchyma may reflect pulmonary edema and congestive heart failure. A bit more pronounced but new when compared to the 11/2015 study. ASSESSMENT AND PLAN: This is a 66-year-old man with dyspnea. PROBLEM: 1. Dyspnea. It is possible that this is related to congestive heart failure and decompensation with diastolic heart failure. The patient is being actively diuresed and he does report some mild improvement. For the time being we will continue with the electrolyte replacement and monitors his Ins and Outs and daily weight. It is curious however, that the patient on exam appears to be euvolemic. It is possible he may have been adequately diuresed already. He does not have any appreciable rales, no elevation of CPV, no peripheral edema. His BMP is also completely unremarkable. Also considering alternative diagnosis of symptomatic anemia given that the patient's H H appears to be lower than it has in the past. In November his hemoglobin was 10, and appears as though he has been approximately 10 or greater for the last several years, and only during this stay he has a hemoglobin of 8, and he also has symptoms of orthostasis and appears pale. At this time I will transfer him two units of packed red blood cells while he is undergoing diuresis to see if this is able to completely resolve his symptoms. If this is the case I suspect he will be significantly improved as of tomorrow. 2. Hypokalemia. Hypomagnesemia. Status post repletion. We will check labs this afternoon and replete as necessary. 3. Supra therapeutic INR. The patient received some vitamin K, His INR is 2.6, now therapeutic. I will not attempt to reverse him any further. There is no evidence of active hemorrhage, although it is unlikely he could have had some alveolar hemorrhage from supra therapeutic INR causing ground glass opacity and dyspnea on exertion and anemia. 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 4. Obstructive sleep apnea. The patient should use his home continuous positive airway pressure (CPAP) while in hospital. 5. Hypertension. He will continue his home antihypertensive regimen. 6. Atrial fibrillation. He is rate controlled with metoprolol. His Coumadin is on hold but his INR is still therapeutic. 7. Type 2 diabetes. He is on sliding scale insulin. 8. Dyslipidemia. He is on a statin. 9. Iron deficiency anemia. The patient is on ferrous sulfate. He receives his colonoscopy through the [place]. He has had two in the last 10 years and he was told they were all normal. We will check iron study. 10. Deep vein thrombosis prophylaxis. His Coumadin is therapeutic. 11. Benign prostatic hyperplasia (BPH). The patient is on terazosin. The patient is on Proscar. 12. Mood disorder. The patient is on Wellbutrin. The patient is on Zoloft.
[2016-11-08 13:38] LABS: RETIC HEMOGLOBIN CONTENT CHr 22.4 PG (24-36)
[2016-11-08 13:51] LABS: CALCIUM LEVEL 8.5 MG/DL (8.8-10.2); CREATININE FOR GFR 1.36 MG/DL (0.70-1.30); GLOMERULAR FILTRATION RATE 55.6 (>49); POTASSIUM SERUM 3.4 MEQ/L (3.5-5.1)
[2016-11-08 13:52] LABS: RETICULOCYTE % ADVIA2120 0.1 % (0.5-1.5)
[2016-11-08 14:23] LABS: PERCENT SATURATION 23.7 % (19.7-37.4)
--- NOTE | 2016-11-08 16:57 | ECHO ---
DATE OF PROCEDURE: 11/08/2016 REFERRING PHYSICIAN: Willie Vidal MD INDICATION: Heart failure, unspecified. HEIGHT: 175 cm WEIGHT: 119 kg MEASUREMENTS: Proximal ascending aorta: 3.5 cm Aortic root: 3.5 cm Left atrium: 4.6 cm Ventricular septum: 1.25 cm Posterior wall: 1.26 cm Left ventricle diastole: 4.7 cm LVOT: 2.3 cm Inferior vena cava: 1.8 cm DOPPLER MEASUREMENTS: Aortic valve velocity: 182 cm/s LVOT velocity: 117 cm/s LVOT VTI: 16.9 cm Trace mitral regurgitation. Very mild tricuspid regurgitation. Estimated right ventricle systolic pressure 44 mmHg based on pulmonary artery acceleration time method. MITRAL ANNULAR TISSUE DOPPLER: E prime septal: 13.7 cm/s E prime lateral: 22.0 cm/s DESCRIPTION: Rhythm appeared to be atrial fibrillation with controlled ventricular response. This is a moderately technically difficult echocardiogram. No pericardial effusion. This is a 2D, M-mode, color flow Doppler and pulse wave Doppler examination that included mitral annular tissue Doppler. CONCLUSIONS: 1. Very mild concentric left ventricle hypertrophy. Normal left ventricle (LV) wall motion and wall thickening. Normal LV systolic function. Left ventricular ejection fraction (LVEF) 65%-70% by visual estimate. Unable to adequately assess LV diastolic function in the setting of atrial fibrillation. 2. Mild-moderate left atrial dilatation. 3. Suggestive of moderate elevation of pulmonary artery systolic pressure (44 mmHg). 4. Mild aortic valve sclerosis. 5. Mild mitral annular calcification. Trace mitral regurgitation.
[2016-11-08 18:16] LABS: MEAN CORPUSCULAR HEMOGLOBIN 21.5 pg (27.0-33.0); MEAN CORPUSCULAR HGB CONC 31.1 g/dl (32.0-36.5); MEAN CORPUSCULAR VOLUME 69.1 fl (80.0-96.0); RED CELL DISTRIBUTION WIDTH 19.7 % (11.5-14.5); WHITE BLOOD COUNT 8.6 K/mm3 (4.0-10.0)
[2016-11-08 20:03] VITALS: BP 130/75
[2016-11-08] MEDS: TERAZOSIN 5 MG CAP PO SCH (20:18)
[2016-11-08] MEDS: SIMVASTATIN 40 MG TAB PO SCH (20:18)
[2016-11-08 23:49] VITALS: BP 115/60
[2016-11-09] MEDS ORDERED: SLF 3 ML SYR IV PRN (02:00)
[2016-11-09] MEDS: FUROSEMIDE 40 MG/4 ML VIAL (J1940) IV SCH ×2 (04:45→08:23)
[2016-11-09 04:46] VITALS: BP 119/60
[2016-11-09] MEDS ORDERED: SLF 3 ML SYR IV SCH (06:00)
[2016-11-09 06:06] LABS: INR 1.75
[2016-11-09 06:09] LABS: MEAN CORPUSCULAR HEMOGLOBIN 21.1 pg (27.0-33.0); MEAN CORPUSCULAR HGB CONC 30.3 g/dl (32.0-36.5); MEAN CORPUSCULAR VOLUME 69.7 fl (80.0-96.0); RED CELL DISTRIBUTION WIDTH 19.4 % (11.5-14.5)
[2016-11-09 06:15] LABS: ANION GAP 11 MEQ/L (8-16); BLOOD UREA NITROGEN 29 MG/DL (7-18); CALCIUM LEVEL 8.5 MG/DL (8.8-10.2); CARBON DIOXIDE LEVEL 27 MEQ/L (21-32); CHLORIDE LEVEL 105 MEQ/L (98-107); CREATININE FOR GFR 1.26 MG/DL (0.70-1.30); GLOMERULAR FILTRATION RATE > 60.0 (>49); GLUCOSE, FASTING 127 MG/DL (80-110); MAGNESIUM LEVEL 2.3 MG/DL (1.8-2.4); POTASSIUM SERUM 3.1 MEQ/L (3.5-5.1); SODIUM LEVEL 143 MEQ/L (136-145)
[2016-11-09] MEDS ORDERED: POTASSIUM CHLORIDE 10 MEQ SR TABLET PO ONE (06:30)
[2016-11-09 07:30] VITALS: BP 139/85
[2016-11-09] MEDS: HumaLOG INSULIN (NovoLOG) PER UNIT SC SCH ×2 (07:30→08:24)
[2016-11-09 08:23] VITALS: BP 122/74
[2016-11-09] MEDS: METOPROLOL TART 25 MG TABLET PO SCH (08:23)
[2016-11-09] MEDS: VITAMIN D 1,000 INTERNATIONAL UNITS TABLET PO SCH (08:23)
[2016-11-09] MEDS: OMEPRAZOLE 20 MG CAP PO SCH (08:23)
[2016-11-09] MEDS: FERROUS SULFATE 325MG TAB PO SCH (08:24)
[2016-11-09] MEDS: SERTRALINE 100 MG TAB PO SCH (08:24)
[2016-11-09] MEDS: FINASTERIDE 5 MG TAB PO SCH (08:24)
[2016-11-09] MEDS: buPROPion **SR TABLET** (ZYBAN) 150MG PO SCH (08:27)
[2016-11-09] MEDS ORDERED: COUM1TAB19 PO (10:30)
--- NOTE | 2016-11-09 15:11 | DSES ---
DATE OF ADMISSION: 11/07/2016 DATE OF DISCHARGE: 11/09/2016 DISCHARGE DIAGNOSIS: Decompensated diastolic heart failure. SECONDARY DIAGNOSES: 1. Symptomatic anemia. 2. Supratherapeutic INR. 3. Hypokalemia. 4. Obstructive sleep apnea. 5. Hypertension. 6. Atrial fibrillation. 7. Type 2 diabetes. 8. Dyslipidemia. 9. Anemia of chronic disease. 10. Benign prostatic hypertrophy (BPH). 11. Mood disorder. 12. Idiopathic pulmonary hemosiderosis. HOSPITAL COURSE: The patient is a 66-year-old man who normally follows with the [facility] for his pulmonary and primary care. He presented to the hospital on 11/07/2016 with dyspnea on exertion and lightheadedness upon standing. The patient was noted to be hypoxic and felt to be in the diastolic congestive heart failure (CHF). He was also noted to be newly anemic with a supratherapeutic INR. Iron studies were less suggestive of an acute blood loss anemia and rather more suggestive of anemia of chronic disease. He has quite a microcytic anemia. The patient was admitted to the progressive care unit where he was actively diuresed. He did receive 2 units of packed red blood cells and continued to diurese. Following this, his electrolytes were repleted. His INR was reversed with vitamin K. The patient did have an echocardiogram completed, which revealed some left ventricular hypertrophy with ejection fraction 65 to 70%, atrial fibrillation. The patient's clinical status did improve to the point that he was no longer requiring oxygen. Today he is actually able to stand and ambulate 50 feet with me without any difficulty, without any oxygen requirement, without any further shortness of breath or lightheadedness upon standing. SUBJECTIVE: Today, the patient reports that he feels quite well. He has no complaints at this time. He tells me that he feels as well as he did a couple of weeks ago and is at his baseline. OBJECTIVE: VITAL SIGNS: Temperature 96.6, pulse 72, respiratory rate 20, blood pressure 119/60, oxygen saturation 96% on room air. He is up and ambulating around the progressive care unit (PCU). His oxygen saturation has not dropped below 90. GENERAL: He is an obese, elderly man. He is in no distress. He is speaking conversationally with no use of accessory muscles. HEENT: Cranial nerves II through XII are grossly intact. He has moist mucous membranes. No elevation of central venous pressure. CARDIOVASCULAR EXAM: S1, S2. Irregularly irregular. RESPIRATORY EXAM: Clear to auscultation. ABDOMEN: Grossly obese. Bowel sounds present. The abdomen is soft. EXTREMITIES: No clubbing, cyanosis or edema. LABORATORY STUDIES: WBC 7.0, hemoglobin 9.6, hematocrit 31.7, platelet count 296. The patient's reticulocyte count is quite low. Chemistry panel: Sodium 143, potassium 3.1, repleted, chloride 105, bicarbonate 27, BUN 29, creatinine 1.2. Iron studies reveal iron, which is in the low normal range, as well as TIBC. His ferritin is significantly elevated at 2128. He had a BNP, which was within normal limits at the time of admission. INR today is 1.75. He has had one preliminary blood culture bottle positive for gram-positive cocci in clusters; however, that was only one of two bottles and the repeat is negative. The patient did improve without any antibiotics. IMAGING: The patient did have a CT angiography of the chest, which revealed no CT evidence for pulmonary embolism, however, patchy ground-glass opacity in the lung parenchyma with possibly pulmonary edema versus congestive heart failure (CHF). ASSESSMENT AND PLAN: This is a 66-year-old man with symptomatic anemia and decompensated diastolic heart failure. 1. Decompensated diastolic heart failure. The patient has been actively diuresed. His electrolytes have been repleted. He is clinically back to his baseline. I have advised him to have a 2 gram sodium diet, 1500 mL fluid restriction and check daily weights and call primary care provider if his weight increases by greater than 2 pounds in 24 hours. 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 2. Anemia of chronic disease, elevated ferritin with low MCV, likely related to his idiopathic pulmonary hemosiderosis. I recommend that he follows up with his outpatient farmworker field crop in [place] through the [facility]. He received 2 units of packed red blood cells with prompt resolution of his symptoms yesterday. He was diuresed following this as well. The patient is at his functional baseline. 3. Hypokalemia and hypomagnesemia, repleted. 4. Supratherapeutic INR. No signs of symptoms of active bleeding. Blood loss anemia does not appear to be acute blood loss anemia. His hemoglobin and hematocrit has remained stable. His INR has been reversed with vitamin K. He was supratherapeutic on presentation. He received approximately 27.5 mg of Coumadin the week prior to his hospitalization. At this time, I am decreasing it to 21 mg by giving him 3 mg a day. A prescription is provided to him, as [facility]. 5. Obstructive sleep apnea . The patient is noncompliant with continuous positive airway pressure (CPAP). He understands the risk of this. 6. Hypertension. The patient was continued on his home antihypertensive regimen. 7. Atrial fibrillation. He is rate controlled with metoprolol. He is being restarted on Coumadin. He is subtherapeutic today. 8. Type 2 diabetes. He is on sliding scale insulin. 9. Dyslipidemia. He is on a statin. 10. Deep vein thrombosis (DVT) prophylaxis. The patient is on Coumadin. 11. Benign prostatic hypertrophy (BPH). The patient is on terazosin and Proscar. 12. Mood disorder. The patient is on Wellbutrin and Zoloft. DISPOSITION: The patient is being discharged home to the care of his family. 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 His activity is as prior to admission. His diet is 2 gram sodium, 1500 mL fluid restriction. He should return to the emergency room if his symptoms worsen.
--- NOTE | 2016-11-09 19:28 | EDDOCDS ---
Physician Documentation [facility] Name: Rajesh Quintero Age: 66 yrs Sex: Male : 1950 Arrival Date: 11/07/2016 Time: 08:21 Bed Admit Hold Private MD: Leeanne Godfrey PA-C Disposition: 11/07/16 12:44 Hospitalization ordered by Willie Vidal for Inpatient Admission. Preliminary diagnosis are Acute pulmonary edema, Anemia, unspecified, Hypokalemia. - Bed requested for PCU. - Status is Inpatient Admission. aa3 - Condition is Stable. - Problem is new. - Symptoms are unchanged. Historical: - Allergies: Albuterol (fast heart rate); Atenolol (Wheezing); - Home Meds: 1. bupropion HCl 150 mg Oral TbER 1 tab once daily 2. cholecalciferol (vitamin D3) 1,000 unit oral tab daily 3. clotrimazole 1 % Topical soln 2 times per day 4. docusate sodium 100 mg Oral cap 1 cap 2 times per day 5. ferrous sulfate 325 mg (65 mg iron) Oral cpER daily 6. finasteride 5 mg oral tab 1 tab once daily 7. furosemide 40 mg Oral tab 1 tab 2 times per day 8. metformin 1,000 mg Oral tab 1 tab 2 times per day 9. metoprolol tartrate 25 mg Oral tab 2 times per day 10. omeprazole 20 mg Oral cpDR 2 caps once daily 11. potassium chloride 10 mEq Oral TbER 2 tabs 2 times per day 12. prednisolone acetate 1 % Opht drps 1 drop 4 times per day 13. Zoloft 100 mg Oral tab 2 tabs once daily 14. simvastatin 80 mg Oral tab daily 15. terazosin 10 mg oral cap 1 cap once daily 16. triamcinolone acetonide 0.1 % Topical oint 2 times per day 17. warfarin 2.5 mg Oral tab 1 tab once daily - PMHx: Atrial Fib; Depression; Diabetes - NIDDM: controlled; Heart failure; hyperlipidemia; Hypertension; CHF; COPD; - PSHx: left eye retinal reattachment; lung biopsy; bronchoscopy; Tonsillectomy; left middle finger amputation; - Social history: Smoking status: Patient states former smoker of tobacco. No barriers to communication noted, The patient speaks fluent [place], Speaks appropriately for age. - Family history: No immediate family members are acutely ill. - : The pt / caregiver states he / she is on anticoagulants: coumadin. Home medication list is obtained from the patient. - Exposure Risk Screening:: None identified. Vital Signs: 11/07 08:41 BP 125 / 67; Pulse 116; Resp 16; Temp 99.3(TE); Pulse Ox 89% on R/A; Weight 118.84 kg / mlb1 262 lbs (R); Height 5 ft. 9 in. (175.26 cm) (R); Pain 0/10; 09:36 BP 127 / 78 (auto/); mb9 10:08 BP 138 / 70 (auto/); mb9 10:36 BP 140 / 72 (auto/); mb9 11:05 Pulse 106 MON; Pulse Ox 95% on 3 lpm NC; mb9 11:06 BP 123 / 70 (auto/); mb9 11:36 BP 109 / 57 (auto/); mb9 11:36 Pulse 100 MON; Pulse Ox 92% on 3 lpm NC; mb9 12:06 BP 153 / 76 (auto/); mb9 12:06 Pulse 108 MON; Pulse Ox 91% on 3 lpm NC; mb9 12:31 Pulse 106 MON; Pulse Ox 86% on 3 lpm NC; mb9 12:35 Pulse 108 MON; Pulse Ox 94% on 4 lpm NC; mb9 12:36 BP 147 / 81 (auto/); mb9 12:36 Pulse 110 MON; Pulse Ox 93% on 3 lpm NC; mb9 13:06 BP 165 / 79 (auto/); mb9 13:06 Pulse 120 MON; Pulse Ox 93% on 3 lpm NC; mb9 13:36 BP 129 / 73 (auto/); mb9 13:36 Pulse 114 MON; Pulse Ox 92% on 3 lpm NC; mb9 14:06 BP 140 / 81 (auto/); mb9 14:06 BP 140 / 81; Pulse 116 MON; Resp 17; Temp 97.4(T); Pulse Ox 93% on 3 lpm NC; mb9 08:41 Body Mass Index 38.69 (118.84 kg, 175.26 cm) mlb1 MDM: 08:52 Pastry Assistant/Pulse Ox/q 30 min VS ordered. br1 08:52 IV Saline Lock ordered. br1 08:52 Rhythm Strip to chart ordered. br1 08:52 Undress patient appropriately for examination ordered. br1 08:53 Basic Metabolic Profile Ordered. EDMS 08:53 CBC with Diff Ordered. EDMS 08:53 Cardiac Injury Profile Ordered. EDMS 08:53 Troponin Ordered. EDMS 08:53 PT/INR Ordered. EDMS 08:53 PTT Ordered. EDMS 08:53 Chest, 2 View (pa\E\lat) Ordered. EDMS 08:54 -Influenza A&B Rapid Antigen - Nose Ordered. EDMS 08:54 ECG WITH READING ER PHYS+CARDIAG ordered. EDMS 09:20 Call Respiratory ordered. br1 09:22 BNP Ordered. EDMS 09:22 -Arterial Blood Gas Ordered. EDMS 09:22 Call Respiratory complete. lbd 09:42 Oxygen at 4L/Min NC or Home dosage ordered. br1 09:42 RBC MORPH PROF NO CHARGE Ordered. EDMS 09:51 CBC with Diff Reviewed. br1 09:51 -Arterial Blood Gas Reviewed. br1 09:51 -Influenza A&B Rapid Antigen - Nose Reviewed. br1 10:07 -Blood Culture (Adults Only), peripheral from different site, or from device/port/PICC br1 etc. if present ordered. 10:07 PT/INR Reviewed. br1 10:07 PTT Reviewed. br1 10:08 -Blood Culture Ordered. EDMS 10:09 BED REQUEST+ADM ordered. EDMS 10:10 Furosemide 40 mg IVP once ordered. br1 10:10 Potassium Chloride Extended Release Tablet 40 mEq PO once ordered. br1 10:11 CT Chest Angio R/O PE Ordered. EDMS 10:27 -Blood Culture (Adults Only), peripheral from different site, or from device/port/PICC lbd etc. if present complete. 10:29 DIFFERENTIAL NO CHARGE Ordered. EDMS 10:29 BLOOD CULTURES Ordered. EDMS 11:12 Financial registration complete. [id number] 11:22 [facility] Payment Agreement was scanned into [employer] and attached to record. mm15 11:45 Basic Metabolic Profile Reviewed. br1 11:45 CBC with Diff Reviewed. br1 11:45 Cardiac Injury Profile Reviewed. br1 11:45 Troponin Reviewed. br1 11:45 BNP Reviewed. br1 11:45 RBC MORPH PROF NO CHARGE Reviewed. br1 11:45 Chest, 2 View (pa\E\lat) Reviewed. br1 11:45 CT Chest Angio R/O PE Reviewed. br1 13:37 Admission / Observation Status ordered. EDMS 13:38 ECHOCARD,DOPPLER/COLOR FLOW ordered. EDMS 13:39 CARDIAC INJURY PROFILE Ordered. EDMS 13:39 TROPONIN Ordered. EDMS 13:41 COMPLETE BLOOD COUNT Ordered. EDMS 13:42 BASIC METABOLIC PROFILE Ordered. EDMS 13:42 MAGNESIUM LEVEL Ordered. EDMS 15:38 2 GRAM SODIUM DIET ordered. EDMS 11/08 09:26 T-Sheet-- Draft Copy was scanned into [employer] and attached to record. gb 09: ECG/EKG was scanned into [employer] and attached to record. gb 09:26 Radiology Report was scanned into [employer] and attached to record. gb Administered Medications: 11/07 10:50 Drug: Furosemide 40 mg [furosemide 10 mg/mL injection solution (4 mL)] Route: IVP; kpj Site: right antecubital; 10:50 Drug: Potassium Chloride 40 mEq [potassium chloride ER 10 mEq tablet,extended release kpj (4 tabs)] Route: PO; Signatures: Dispatcher [employer] EDMS Gisselle Aguirre, Radiologic Electronic Specialist Unit lbd Audrey Nath RN RN kpj Rohini Gallagher, Reg Reg gb Marin Jones RN RN mlb1 Stephen Raines MD MD br1 Janet Yusuf [id number] Pretty Govea RN RN aa3 Marin Girard,RN RN mb9 The chart was reviewed and I authenticate all verbal orders and agree with the evaluation and treatment provided.Corrections: (The following items were deleted from the chart) 15:38 11:53 CARDIAC DIET PLASTIC TAPIA+DIET ordered. EDMS EDMS 15:38 13:38 2 GRAM SODIUM DIET ordered. EDMS EDMS Attachments: 11:22 [facility] Payment Agreement [id number] 11/08 09:26 T-Sheet-- Draft Copy gb : ECG/EKG gb Chart Complete MTDD
--- NOTE | 2016-11-09 19:28 | EDDOCDS ---
Nurse's Notes Name: Rajesh Quintero Age: 66 yrs Sex: Male : 1950 Arrival Date: 11/07/2016 Time: 08:21 Bed Admit Hold Private MD: Leeanne Godfrey PA-C Diagnosis: Acute pulmonary edema;Anemia, unspecified;Hypokalemia Presentation: 11/07 08:34 Presenting complaint: Patient states: SOB began two days ago. Adult Sepsis Screening: mlb1 The patient does not have new or worsening altered mentation. Patient's respiratory rate is less than 22. Systolic blood pressure is greater than 100. Patient has a qSOFA score of 0- Negative Sepsis Screen. Suicide/Homicide risk assessment- the patient denies having any suicidal and/or homicidal ideations and does not present with any other emotional, behavioral or mental health complaints. Status: Patient is not a tax services intern or dependent. Transition of care: patient was not received from another setting of care. 08:34 Acuity: URSULA Level 3 mlb1 08:34 Method Of Arrival: Walkin/Carried/Asstd mlb1 Triage Assessment: 08:42 General: Appears in no apparent distress, Behavior is appropriate for age, cooperative. mlb1 Pain: Denies pain. Respiratory: Onset: The symptoms/episode began/occurred gradually, Airway is patent Respiratory effort is even, unlabored. Historical: - Allergies: Albuterol (fast heart rate); Atenolol (Wheezing); - Home Meds: 1. bupropion HCl 150 mg Oral TbER 1 tab once daily 2. cholecalciferol (vitamin D3) 1,000 unit oral tab daily 3. clotrimazole 1 % Topical soln 2 times per day 4. docusate sodium 100 mg Oral cap 1 cap 2 times per day 5. ferrous sulfate 325 mg (65 mg iron) Oral cpER daily 6. finasteride 5 mg oral tab 1 tab once daily 7. furosemide 40 mg Oral tab 1 tab 2 times per day 8. metformin 1,000 mg Oral tab 1 tab 2 times per day 9. metoprolol tartrate 25 mg Oral tab 2 times per day 10. omeprazole 20 mg Oral cpDR 2 caps once daily 11. potassium chloride 10 mEq Oral TbER 2 tabs 2 times per day 12. prednisolone acetate 1 % Opht drps 1 drop 4 times per day 13. Zoloft 100 mg Oral tab 2 tabs once daily 14. simvastatin 80 mg Oral tab daily 15. terazosin 10 mg oral cap 1 cap once daily 16. triamcinolone acetonide 0.1 % Topical oint 2 times per day 17. warfarin 2.5 mg Oral tab 1 tab once daily - PMHx: Atrial Fib; Depression; Diabetes - NIDDM: controlled; Heart failure; hyperlipidemia; Hypertension; CHF; COPD; - PSHx: left eye retinal reattachment; lung biopsy; bronchoscopy; Tonsillectomy; left middle finger amputation; - Social history: Smoking status: Patient states former smoker of tobacco. No barriers to communication noted, The patient speaks fluent Uzbek, Speaks appropriately for age. - Family history: No immediate family members are acutely ill. - : The pt / caregiver states he / she is on anticoagulants: coumadin. Home medication list is obtained from the patient. - Exposure Risk Screening:: None identified. Screenin:29 Screening information is obtained from the patient. Fall risk: No risks identified. mcp Assistance ADL's: requires no assistance with activities of daily living. Abuse/DV Screen: The patient / caregiver reports he/she is: not in a situation that causes fear, pain or injury. Nutritional screening: No deficits noted. Advance Directives: There is no active DNR order. home support is adequate. Assessment: 09:27 General: Appears in no apparent distress, comfortable, Behavior is cooperative. Pain: mcp Denies pain. Neurological: No deficits noted. Cardiovascular: Rhythm is atrial fibrillation With PVC's. Respiratory: Airway is patent Respiratory effort is even, unlabored, Breath sounds are clear bilaterally. Breath sounds are diminished bilaterally. Derm: Skin is pink, warm & dry. 10:15 General: Appears in no apparent distress, Behavior is cooperative. Neurological: mcp Respiratory: Airway is patent Respiratory effort is even, unlabored. Derm: Skin is pink, warm & dry. 10:20 General: Pt stood at side of bed to void--voided small amount dark lawrence urine. Pts mcp pulse ox dropped to 80's--oxygen increased to 3L NC and Dr Raines notified. 10:59 General: Appears in no apparent distress, comfortable, Behavior is cooperative. Pain: mcp Denies pain. Neurological: No deficits noted. Respiratory: Airway is patent Respiratory effort is even, unlabored. Derm: Skin is pink, warm & dry. 11:40 General: Appears in no apparent distress, comfortable, Behavior is appropriate for age, mb9 cooperative. Pain: Denies pain. Neurological: Level of Consciousness is awake, alert, Oriented to person, place, time. Respiratory: Airway is patent Breath sounds are clear bilaterally. Breath sounds are diminished in left posterior lower lobe, right posterior middle lobe and right posterior lower lobe. 12:37 Reassessment: Patient appears in no apparent distress at this time. Adult Sepsis mb9 Screening: The patient does not have new or worsening altered mentation. Patient's respiratory rate is less than 22. Systolic blood pressure is greater than 100. Patient has a qSOFA score of 0- Negative Sepsis Screen. General: Appears in no apparent distress, comfortable, Behavior is cooperative. Pain: The patient reports he/she is under the care of a paint specialist and has a current pain contract. Respiratory: Airway is patent Breath sounds are clear bilaterally. Breath sounds are diminished in left posterior lower lobe, right posterior middle lobe and right posterior lower lobe. 13:29 Reassessment: Patient appears in no apparent distress at this time. General: Dr Vidal in mb9 to see pt.. Respiratory: Airway is patent Respiratory effort is even, unlabored. 14:10 Reassessment: Patient appears in no apparent distress at this time. Adult Sepsis mb9 Screening: The patient does not have new or worsening altered mentation. Patient's respiratory rate is less than 22. Systolic blood pressure is greater than 100. Patient has a qSOFA score of 0- Negative Sepsis Screen. General: Appears in no apparent distress, comfortable, Behavior is fussy. Pain: Denies pain. Respiratory: Airway is patent Respiratory effort is even, unlabored. 15:00 General: Report taken from Miguelangel Girard RN. All further charting will be in [facility].. aa3 Vital Signs: 08:41 BP 125 / 67; Pulse 116; Resp 16; Temp 99.3(TE); Pulse Ox 89% on R/A; Weight 118.84 kg mlb1 (R); Height 5 ft. 9 in. (175.26 cm) (R); Pain 0/10; 09:36 BP 127 / 78 (auto/); mb9 10:08 BP 138 / 70 (auto/); mb9 10:36 BP 140 / 72 (auto/); mb9 11:05 Pulse 106 MON; Pulse Ox 95% on 3 lpm NC; mb9 11:06 BP 123 / 70 (auto/); mb9 11:36 BP 109 / 57 (auto/); mb9 11:36 Pulse 100 MON; Pulse Ox 92% on 3 lpm NC; mb9 12:06 BP 153 / 76 (auto/); mb9 12:06 Pulse 108 MON; Pulse Ox 91% on 3 lpm NC; mb9 12:31 Pulse 106 MON; Pulse Ox 86% on 3 lpm NC; mb9 12:35 Pulse 108 MON; Pulse Ox 94% on 4 lpm NC; mb9 12:36 BP 147 / 81 (auto/); mb9 12:36 Pulse 110 MON; Pulse Ox 93% on 3 lpm NC; mb9 13:06 BP 165 / 79 (auto/); mb9 13:06 Pulse 120 MON; Pulse Ox 93% on 3 lpm NC; mb9 13:36 BP 129 / 73 (auto/); mb9 13:36 Pulse 114 MON; Pulse Ox 92% on 3 lpm NC; mb9 14:06 BP 140 / 81 (auto/); mb9 14:06 BP 140 / 81; Pulse 116 MON; Resp 17; Temp 97.4(T); Pulse Ox 93% on 3 lpm NC; mb9 08:41 Body Mass Index 38.69 (118.84 kg, 175.26 cm) mlb1 Vitals: 08:41 Log In Time: November 07, 2016 at 08:19. mlb1 ED Course: 08:23 Patient visited by Janet Yusuf. mm15 08:23 Leeanne Godfrey is Private Physician. mm15 08:23 Patient moved to Waiting mm15 08:34 Patient visited by Marin Jones, RN. mlb1 08:35 Triage Initiated mlb1 08:42 Patient visited by Marin Jones, RN. mlb1 08:42 Patient moved to 15 mlb1 09:09 Stephen Raines MD is Attending Physician. br1 09:18 EKG done. (by ED staff). Reviewed by Stephen Raines MD. rn1 09:20 Patient visited by Stephen Raines MD. br1 09:26 BNP Sent. mcp 09:26 PTT Sent. [facility] 09:26 PT/INR Sent. [facility] 09:26 Basic Metabolic Profile Sent. [facility] 09:26 CBC with Diff Sent. [facility] 09:26 Cardiac Injury Profile Sent. [facility] 09:26 Troponin Sent. [facility] 09:27 Inserted saline lock: 20 gauge in right antecubital area and blood collected. The [facility] patient tolerated the procedure well. Labs drawn. (by ED staff). Sent per order to lab. 09:30 Patient visited by Alva Gonzalez RN. [facility] 09:30 The patient / caregiver is instructed regarding the plan of care and ED course. Patient [facility] has correct armband on for positive identification. Placed in gown. Bed in low position. Call light in reach. Side rails up X2. Adult w/ patient. chemist instrumentation on. Pulse ox on. NIBP on. 09:35 -Arterial Blood Gas Sent. kt1 10:00 Notified attending ED physician of Critical lab value. Dr Raines notified of PT 52.0 kpj and INR 5.81. 10:34 Chest, 2 View (pa\E\lat) Returned. EDMS 10:40 BLOOD CULTURES Sent. kpj 10:40 DIFFERENTIAL NO CHARGE Sent. kpj 10:59 Patient visited by Alva Gonzalez RN. [facility] 11:21 CT Chest Angio R/O PE Returned. EDMS 11:22 [facility] Payment Agreement was scanned into [employer] and attached to record. mm15 11:40 Patient visited by Marin Girard,RN. mb9 12:37 Patient visited by Marin Girard,LENO. mb9 12:44 Willie Vidal is Hospitalizing Provider. br1 13:29 Diet tray given. mb9 14:06 No procedures done that require assistance. mb9 14:16 Patient moved to Admit Hold kpj 15:12 Patient moved to 21 kpj 15:12 Patient moved to Admit Hold kpj 15:32 CT Chest Angio R/O PE Returned. EDMS 11/08 09:26 T-Sheet-- Draft Copy was scanned into [employer] and attached to record. gb 09:26 ECG/EKG was scanned into [employer] and attached to record. gb 09:26 Radiology Report was scanned into [employer] and attached to record. gb Administered Medications: 11/07 10:50 Drug: Furosemide 40 mg [furosemide 10 mg/mL injection solution (4 mL)] Route: IVP; kpj Site: right antecubital; 10:50 Drug: Potassium Chloride 40 mEq [potassium chloride ER 10 mEq tablet,extended release kpj (4 tabs)] Route: PO; Output: 11:36 Urine: 100.00ml (Voided); Total: 100.00ml. mb9 12:21 Urine: 100.00ml (Voided); Total: 200.00ml. mb9 12:38 Urine: 100.00ml (Voided); Total: 300.00ml. mb9 14:06 Urine: 100.00ml (Voided); Total: 400.00ml. mb9 RT: 09:35 ABG's drawn from right radial artery pressure held for 5 minutes no bleeding noted kt1 pressure bandage applied specimen sent pt. tolerated well. Order Results: Lab Order: Basic Metabolic Profile; SPEC'M 11/07/16 09:24 Test: GLUCOSE, FASTING; Value: 138; Range: 80-110; Abnormal: Above high normal; Units: MG/DL; Status: F Test: BLOOD UREA NITROGEN; Value: 25; Range: 7-18; Abnormal: Above high normal; Units: MG/DL; Status: F Test: CREATININE FOR GFR; Value: 1.40; Range: 0.70-1.30; Abnormal: Above high normal; Units: MG/DL; Status: F Test: GLOMERULAR FILTRATION RATE; Value: 53.8; Range: >49; Status: F Test: SODIUM LEVEL; Value: 140; Range: 136-145; Units: MEQ/L; Status: F Test: POTASSIUM SERUM; Value: 3.1; Range: 3.5-5.1; Abnormal: Below low normal; Units: MEQ/L; Status: F Test: CHLORIDE LEVEL; Value: 101; Range: 98-107; Units: MEQ/L; Status: F Test: CARBON DIOXIDE LEVEL; Value: 28; Range: 21-32; Units: MEQ/L; Status: F Test: ANION GAP; Value: 11; Range: 8-16; Units: MEQ/L; Status: F Test: CALCIUM LEVEL; Value: 8.6; Range: 8.8-10.2; Abnormal: Below low normal; Units: MG/DL; Status: F Test Note: ; Units are mL/min/1.73 m2 Chronic Kidney Disease Staging per NKF: Stage I & II GFR >=60 Normal to Mildly Decreased Stage III GFR 30-59 Moderately Decreased Stage IV GFR 15-29 Severely Decreased Stage V GFR <15 Very Little GFR Left ESRD GFR <15 on TRAUMA MANAGER Lab Order: CBC with Diff; LILI 11/07/16 09:24 Test: WHITE BLOOD COUNT; Value: 10.1; Range: 4.0-10.0; Abnormal: Above high normal; Units: K/mm3; Status: F Test: RED BLOOD COUNT; Value: 4.34; Range: 4.30-6.10; Units: M/mm3; Status: F Test: HEMOGLOBIN; Value: 8.5; Range: 14.0-18.0; Abnormal: Below low normal; Units: g/dl; Status: F Test: HEMATOCRIT; Value: 29.0; Range: 42.0-52.0; Abnormal: Below low normal; Units: %; Status: F Test: MEAN CORPUSCULAR VOLUME; Value: 66.9; Range: 80.0-96.0; Abnormal: Below low normal; Units: fl; Status: F Test: MEAN CORPUSCULAR HEMOGLOBIN; Value: 19.6; Range: 27.0-33.0; Abnormal: Below low normal; Units: pg; Status: F Test: MEAN CORPUSCULAR HGB CONC; Value: 29.3; Range: 32.0-36.5; Abnormal: Below low normal; Units: g/dl; Status: F Test: RED CELL DISTRIBUTION WIDTH; Value: 17.1; Range: 11.5-14.5; Abnormal: Above high normal; Units: %; Status: F Test: PLATELET COUNT, AUTOMATED; Value: 297; Range: 150-450; Units: k/mm3; Status: F Test: NEUTROPHILS %; Range: 36.0-66.0; Abnormal: Above high normal; Units: %; Status: F Test: LYMPH %; Range: 24.0-44.0; Abnormal: Below low normal; Units: %; Status: F Test: MONO %; Range: 0.0-5.0; Units: %; Status: F Test: EOS %; Range: 0.0-3.0; Units: %; Status: F Test: BASO %; Range: 0.0-1.0; Units: %; Status: F Test: LARGE UNSTAINED CELL %; Range: 0.0-4.0; Units: %; Status: F Test: NEUTROPHILS #; Range: 1.8-7.7; Abnormal: Above high normal; Units: K/mm3; Status: F Test: LYMPH #; Range: 1.5-4.5; Abnormal: Below low normal; Units: K/mm3; Status: F Test: MONO #; Range: 0.0-0.8; Units: K/mm3; Status: F Test: EOS #; Range: 0.0-0.50; Units: K/mm3; Status: F Test: BASO #; Range: 0.0-0.2; Units: K/mm3; Status: F Test: LARGE UNSTAINED CELL #; Range: 0.0-0.4; Units: K/mm3; Status: F Test Note: ; --- 11/07/16 1027 --- NEUT % previously reported as: 89.7 H % Test: NEUTROPHILS; Value: 91; Range: 35-75; Abnormal: Above high normal; Units: %; Status: F Test: LYMPHOCYTES; Value: 5; Range: 16-52; Abnormal: Below low normal; Units: %; Status: F Test: MONOCYTES; Value: 3; Range: 0-8; Units: %; Status: F Test: ATYPICAL LYMPH; Value: 1; Range: 0-5; Units: %; Status: F Test: HYPOCHROMASIA; Value: 3+; Status: F Test: ANISOCYTOSIS; Value: 1+; Status: F Test: MICROCYTOSIS; Value: 3+; Status: F Test: OVALOCYTES; Value: 1+; Status: F Lab Order: Cardiac Injury Profile; SPEC'M 11/07/16 09:24 Test: CPK CREATINE PHOSPHOKINASE; Value: 92; Range: 39-308; Units: U/L; Status: F Test: CK-MB VALUE MASS; Value: 2.4; Range: 0.0-3.6; Units: NG/ML; Status: F Test: MB/CK RELATIVE INDEX; Value: 2.60; Range: < OR =4; Status: F Test Note: ; DIAGNOSIS CRITERIA MMB ng/ml Relative Index (RI) NON-AMI < or = 5 N/A BHAGAT ZONE > 5 < or = 4 AMI > 5 > 4 Lab Order: Troponin; 11/07/16 09:24 Test: TROPONIN I; Value: < 0.02; Range: < 0.10; Units: NG/ML; Status: F Test Note: ; Troponin I Reference Interval for [employer] LOCI: 99th Percentile= 0.00-0.045 ng/ml Risk Stratification: <= 0.10 ng/ml Decreased Risk for Adverse Clinical Events. 0.10-1.50 ng/ml Increased Risk for Adverse Clinical Events. Evaluation of additional criterion and/or repeat testing in 2-6 hours is suggested to rule out myocardial damage. >= 1.50 ng/ml Indicative of Myocardial Injury. Lab Order: PT/INR; 11/07/16 09:24 Test: PROTHROMBIN TIME; Value: 52.0; Range: 12.3-14.5; Abnormal: Above high normal; Units: SECONDS; Status: F Test: INR; Value: 5.81; Abnormal: Above upper panic limits; Status: F Test Note: ; THERAPUTIC HUMAN INR VALUES INDICATIONS NORMAL RANGES PROPHYLAXIS/TREATMENT OF: VENOUS THROMBOSIS 2.0-3.0 PULMONARY EMBOLISM 2.0-3.0 PREVENTION OF SYSTEMIC EMBOLISM FROM: TISSUE HEART VALVES 2.0-3.0 ACUTE MYOCARDIAL INFARCTION 2.0-3.0 VALVULAR HEART DISEASE 2.0-3.0 ATRIAL FIBRILLATION 2.0-3.0 MECHANICAL VALVES(HIGH RISK) 2.5-3.5 RECURRENT MYOCARDIAL INFARCTION 2.5-3.5 Lab Order: PTT; 11/07/16 09:24 Test: PARTIAL THROMBOPLASTIN TIME; Value: 76.4; Range: 26.6-37.1; Abnormal: Above high normal; Units: SECONDS; Status: F Lab Order: -Influenza A&B Rapid Antigen - Nose; 11/07/16 08:57 Test: INFLUENZA A RAPID SCR by ICA; Value: INFLUENZA A RESULTS NEGATIVE; Status: F Test: INFLUENZA A RAPID SCR by ICA; Value: Comments:; Status: F Test: INFLUENZA B RAPID SCR by ICA; Value: INFLUENZA B RESULTS NEGATIVE; Status: F Test Note: ; The Influenza test is a direct rapid immunoassay for the qualitative detection of Influenza viral antigen. Cell culture (Viral Culture) testing should be considered to confirm NEGATIVE results and to assist in detecting other viruses that can provide similar clinical symptoms. Please contact the lab within 24 hours ([phone]) if confirmatory testing is desired. Lab Order: BNP; 11/07/16 08:57 Test: BRAIN NATRIURETIC PEPTIDE; Value: 95.8; Range: <100; Units: PG/ML; Status: F Lab Order: -Arterial Blood Gas; 11/07/16 09:28 Test: ABG pH (ARTERIAL); Value: 7.550; Range: 7.350-7.450; Abnormal: Above high normal; Units: UNITS; Status: F Test: ABG PARTIAL PRESSURE CO2; Value: 28.6; Range: 35.0-45.0; Abnormal: Below low normal; Units: mmHg; Status: F Test: ABG PARTIAL PRESSURE O2; Value: 72.9; Range: 75.0-100.0; Abnormal: Below low normal; Units: mmHg; Status: F Test: ABG TOTAL CO2; Value: 25.3; Range: 23.0-31.0; Units: MEQ/L; Status: F Test: ABG HCO3; Value: 24.5; Range: 22.0-26.0; Units: MEQ/L; Status: F Test: ABG BASE EXCESS; Value: 2.4; Range: -2.0-2.0; Abnormal: Above high normal; Status: F Test: ABG STANDARD HCO3; Value: 26.6; Range: 22.0-26.0; Abnormal: Above high normal; Units: MEQ/L; Status: F Test: ABG O2 SATURATION; Value: 95.9; Range: 95.0-99.0; Units: %; Status: F Test: ABG DEVICE; Value: NASAL KATE; Status: F Lab Order: RBC MORPH PROF NO CHARGE; 11/07/16 09:24 Test: PLATELET ESTIMATE; Value: NORMAL; Range: NORMAL; Status: F Lab Order: Fingerstick Blood Sugar; 11/07/16 17:48 Test: BEDSIDE GLUCOSE; Value: 111; Range: 80-115; Units: MG/DL; Status: F Radiology Order: Chest, 2 View (pa\E\lat) Test: Chest, 2 View (pa\E\lat) REASON FOR EXAMINATION: Shortness of Breath; CHEST, TWO VIEWS:; ; HISTORY: Shortness of breath.; ; COMPARISON: 12/22/2015.; ; An increase in interstitial markings is present in the lungs. The heart is; normal in size. The pulmonary vasculature is prominent. Degenerative change is; present in the thoracic spine. There are old healed right rib fractures.; ; IMPRESSION:; ; There is an increase in interstitial markings in the lungs consistent with; interstitial edema or infiltrates.; ; ; Signed by; Todd Shultz MD 11/07/2016 10:12 A; Radiology Order: CT Chest Angio R/O PE Test: CT Chest Angio R/O PE REASON FOR EXAMINATION: Chest Pain;Shortness of Breath; CT pulmonary angiogram: With IV contrast.; ; History: Chest pain and shortness of breath.; ; Comparison studies: December 16, 2015.; ; Contrast dose: 75 cc's of Isovue 370 are administered intravenously.; ; CT technique: Helical scanning is acquired and overlapping 1.5 mm and contiguous; 3 mm axial images are reformatted. In addition, a 3-D work station is deployed; to generate thick slab maximum intensity projection images in sagittal and; coronal imaging projections.; ; CT pulmonary angiographic findings: There is good opacification of the pulmonary; arterial tree. There is no CT evidence of pulmonary embolism. The thoracic; aorta enhances homogeneously and is normal in caliber, course and diameter.; Vascular calcification is seen in the left coronary artery distribution. There; is a small sliding-type hiatal hernia. No pleural or pericardial effusion is; seen. There is a patchy mosaic-like pattern of ground-glass opacity throughout; the lung archuleta upper and lower lobes. Some peripheral sparing. This pattern is; a little more pronounced than on the December 16, 2015 study.; ; No pleural effusion or mass lesion is seen. Cardiac enlargement is again noted.; There are degenerative changes in the thoracic spine. No bony destructive lesion; is appreciated. There is a granulomatous calcified nodule in the right upper; lobe posteriorly. There are scattered mediastinal lymph nodes again noted; unchanged from the comparison study of November 2015. Old healed rib fractures are; again noted on the right.; ; Impression:; ; 1. No CT evidence of pulmonary embolism.; ; 2. Patchy ground-glass opacity in the lung parenchyma may reflect pulmonary; edema and CHF. It is a bit more pronounced although not new when compared with; the November 2015 prior study.; ; 3. Mild cardiomegaly and small hiatal hernia noted. Stable mediastinal lymph; nodes.; ; ; Signed by; Jet Alvarez MD 11/07/2016 03:04 P; Outcome: 12:44 Decision to Hospitalize by Provider. br1 14:06 Discharge Assessment: Patient awake, alert and oriented x 3. No cognitive and/or mb9 functional deficits noted. Patient verbalized understanding of disposition instructions. patient administered narcotics - no. The following High Risk Discharge criteria are identified: None. Admitted to Med/Surg accompanied by tech. Condition: good Condition: stable Condition: improved. No special radiology studies were completed. Property :Personal belongings accompany Pt. 18:17 Admission hand-off: Report called to Manda Orozco RN. aa3 18:27 Patient left the ED. aa3 Signatures: Dispatcher [employer] EDUT Audrey Nath RN Alva Root RN RN Rohini Starks, Kurt Reg Marin Jones RN RN mlb1 Manda Gonzalez kt1 Stephen Raines MD MD br1 Janet Yusuf mm15 Pretty Govea RN RN aa3 Marin Girard,RN RN mb9 Reji Alvarez rn1 Corrections: (The following items were deleted from the chart) 10:59 10:15 General: Appears cachectic, Behavior is cooperative, [facility] 10:59 10:15 Pain: The patient reports he/she is under the care of a pain management [facility] specialist and has a current pain contract. [facility] 10:59 10:58 General: Appears [facility] Chart Complete MTDD
--- NOTE | 2016-11-09 19:28 | EDDOCDS ---
Physician Documentation [facility] Name: Rajesh Quintero Age: 66 yrs Sex: Male : 1950 Arrival Date: 11/07/2016 Time: 08:21 Bed Admit Hold Private MD: Leeanne Godfrey PA-C Disposition: 11/07/16 12:44 Hospitalization ordered by Willie Vidal for Inpatient Admission. Preliminary diagnosis are Acute pulmonary edema, Anemia, unspecified, Hypokalemia. - Bed requested for PCU. - Status is Inpatient Admission. aa3 - Condition is Stable. - Problem is new. - Symptoms are unchanged. Historical: - Allergies: Albuterol (fast heart rate); Atenolol (Wheezing); - Home Meds: 1. bupropion HCl 150 mg Oral TbER 1 tab once daily 2. cholecalciferol (vitamin D3) 1,000 unit oral tab daily 3. clotrimazole 1 % Topical soln 2 times per day 4. docusate sodium 100 mg Oral cap 1 cap 2 times per day 5. ferrous sulfate 325 mg (65 mg iron) Oral cpER daily 6. finasteride 5 mg oral tab 1 tab once daily 7. furosemide 40 mg Oral tab 1 tab 2 times per day 8. metformin 1,000 mg Oral tab 1 tab 2 times per day 9. metoprolol tartrate 25 mg Oral tab 2 times per day 10. omeprazole 20 mg Oral cpDR 2 caps once daily 11. potassium chloride 10 mEq Oral TbER 2 tabs 2 times per day 12. prednisolone acetate 1 % Opht drps 1 drop 4 times per day 13. Zoloft 100 mg Oral tab 2 tabs once daily 14. simvastatin 80 mg Oral tab daily 15. terazosin 10 mg oral cap 1 cap once daily 16. triamcinolone acetonide 0.1 % Topical oint 2 times per day 17. warfarin 2.5 mg Oral tab 1 tab once daily - PMHx: Atrial Fib; Depression; Diabetes - NIDDM: controlled; Heart failure; hyperlipidemia; Hypertension; CHF; COPD; - PSHx: left eye retinal reattachment; lung biopsy; bronchoscopy; Tonsillectomy; left middle finger amputation; - Social history: Smoking status: Patient states former smoker of tobacco. No barriers to communication noted, The patient speaks fluent [place], Speaks appropriately for age. - Family history: No immediate family members are acutely ill. - : The pt / caregiver states he / she is on anticoagulants: coumadin. Home medication list is obtained from the patient. - Exposure Risk Screening:: None identified. Vital Signs: 11/07 08:41 BP 125 / 67; Pulse 116; Resp 16; Temp 99.3(TE); Pulse Ox 89% on R/A; Weight 118.84 kg / mlb1 262 lbs (R); Height 5 ft. 9 in. (175.26 cm) (R); Pain 0/10; 09:36 BP 127 / 78 (auto/); mb9 10:08 BP 138 / 70 (auto/); mb9 10:36 BP 140 / 72 (auto/); mb9 11:05 Pulse 106 MON; Pulse Ox 95% on 3 lpm NC; mb9 11:06 BP 123 / 70 (auto/); mb9 11:36 BP 109 / 57 (auto/); mb9 11:36 Pulse 100 MON; Pulse Ox 92% on 3 lpm NC; mb9 12:06 BP 153 / 76 (auto/); mb9 12:06 Pulse 108 MON; Pulse Ox 91% on 3 lpm NC; mb9 12:31 Pulse 106 MON; Pulse Ox 86% on 3 lpm NC; mb9 12:35 Pulse 108 MON; Pulse Ox 94% on 4 lpm NC; mb9 12:36 BP 147 / 81 (auto/); mb9 12:36 Pulse 110 MON; Pulse Ox 93% on 3 lpm NC; mb9 13:06 BP 165 / 79 (auto/); mb9 13:06 Pulse 120 MON; Pulse Ox 93% on 3 lpm NC; mb9 13:36 BP 129 / 73 (auto/); mb9 13:36 Pulse 114 MON; Pulse Ox 92% on 3 lpm NC; mb9 14:06 BP 140 / 81 (auto/); mb9 14:06 BP 140 / 81; Pulse 116 MON; Resp 17; Temp 97.4(T); Pulse Ox 93% on 3 lpm NC; mb9 08:41 Body Mass Index 38.69 (118.84 kg, 175.26 cm) mlb1 MDM: 08:52 Cryptographic Vulnerability Analyst/Pulse Ox/q 30 min VS ordered. br1 08:52 IV Saline Lock ordered. br1 08:52 Rhythm Strip to chart ordered. br1 08:52 Undress patient appropriately for examination ordered. br1 08:53 Basic Metabolic Profile Ordered. EDMS 08:53 CBC with Diff Ordered. EDMS 08:53 Cardiac Injury Profile Ordered. EDMS 08:53 Troponin Ordered. EDMS 08:53 PT/INR Ordered. EDMS 08:53 PTT Ordered. EDMS 08:53 Chest, 2 View (pa\E\lat) Ordered. EDMS 08:54 -Influenza A&B Rapid Antigen - Nose Ordered. EDMS 08:54 ECG WITH READING ER PHYS+CARDIAG ordered. EDMS 09:20 Call Respiratory ordered. br1 09:22 BNP Ordered. EDMS 09:22 -Arterial Blood Gas Ordered. EDMS 09:22 Call Respiratory complete. lbd 09:42 Oxygen at 4L/Min NC or Home dosage ordered. br1 09:42 RBC MORPH PROF NO CHARGE Ordered. EDMS 09:51 CBC with Diff Reviewed. br1 09:51 -Arterial Blood Gas Reviewed. br1 09:51 -Influenza A&B Rapid Antigen - Nose Reviewed. br1 10:07 -Blood Culture (Adults Only), peripheral from different site, or from device/port/PICC br1 etc. if present ordered. 10:07 PT/INR Reviewed. br1 10:07 PTT Reviewed. br1 10:08 -Blood Culture Ordered. EDMS 10:09 BED REQUEST+ADM ordered. EDMS 10:10 Furosemide 40 mg IVP once ordered. br1 10:10 Potassium Chloride Extended Release Tablet 40 mEq PO once ordered. br1 10:11 CT Chest Angio R/O PE Ordered. EDMS 10:27 -Blood Culture (Adults Only), peripheral from different site, or from device/port/PICC lbd etc. if present complete. 10:29 DIFFERENTIAL NO CHARGE Ordered. EDMS 10:29 BLOOD CULTURES Ordered. EDMS 11:12 Financial registration complete. mm15 11:22 [facility] [place] [facility] [place] Agreement was scanned into [employer] and attached to record. mm15 11:45 Basic Metabolic Profile Reviewed. br1 11:45 CBC with Diff Reviewed. br1 11:45 Cardiac Injury Profile Reviewed. br1 11:45 Troponin Reviewed. br1 11:45 BNP Reviewed. br1 11:45 RBC MORPH PROF NO CHARGE Reviewed. br1 11:45 Chest, 2 View (pa\E\lat) Reviewed. br1 11:45 CT Chest Angio R/O PE Reviewed. br1 13:37 Admission / Observation Status ordered. EDMS 13:38 ECHOCARD,DOPPLER/COLOR FLOW ordered. EDMS 13:39 CARDIAC INJURY PROFILE Ordered. EDMS 13:39 TROPONIN Ordered. EDMS 13:41 COMPLETE BLOOD COUNT Ordered. EDMS 13:42 BASIC METABOLIC PROFILE Ordered. EDMS 13:42 MAGNESIUM LEVEL Ordered. EDMS 15:38 2 GRAM SODIUM DIET ordered. EDMS 11/08 09:26 T-Sheet-- Draft Copy was scanned into [employer] and attached to record. gb 09: ECG/EKG was scanned into [employer] and attached to record. gb 09:26 Radiology Report was scanned into [employer] and attached to record. gb Administered Medications: 11/07 10:50 Drug: Furosemide 40 mg [furosemide 10 mg/mL injection solution (4 mL)] Route: IVP; kpj Site: right antecubital; 10:50 Drug: Potassium Chloride 40 mEq [potassium chloride ER 10 mEq tablet,extended release kpj (4 tabs)] Route: PO; Signatures: Dispatcher [employer] EDMS Gisselle Aguirre, Collision Technician Unit lbd Audrey Nath RN RN kpj Rohini Gallagher, Reg Reg gb Marin Jones RN RN mlb1 Stephen Raines MD MD br1 Jnaet Yusuf mm15 Pretty Govea RN RN aa3 Marin Girard,RN RN mb9 The chart was reviewed and I authenticate all verbal orders and agree with the evaluation and treatment provided.Corrections: (The following items were deleted from the chart) 15:38 11:53 CARDIAC DIET PLASTIC TAPIA+DIET ordered. EDMS EDMS 15:38 13:38 2 GRAM SODIUM DIET ordered. EDMS EDMS Attachments: 11:22 [facility] [place] [facility] [place] Payment Agreement mm15 11/08 09:26 T-Sheet-- Draft Copy gb : ECG/EKG gb Chart Complete MTDD
== END 2016-11-09 12:00 | disposition home or self-care (01) | DRG 292 ==
LOC: M ED 08:21 → M ED INP 13:32 → M PCU 18:30
PROVIDERS: ADMIT Internal Medicine; ATTEND Internal Medicine
PROC: 30233N1 Transfusion of Nonautologous Red Blood Cells into Peripheral Vein, Percutaneous Approach (ICD-10-PCS; principal; 2016-11-08)
DX: I50.33 Acute on chronic diastolic (congestive) heart failure (principal); D68.9 Coagulation defect, unspecified; J84.03 Idiopathic pulmonary hemosiderosis; I48.91 Unspecified atrial fibrillation; J20.9 Acute bronchitis, unspecified; R04.0 Epistaxis; T45.515A Adverse effect of anticoagulants, initial encounter; G47.33 Obstructive sleep apnea (adult) (pediatric); I10 Essential (primary) hypertension; E11.9 Type 2 diabetes mellitus without complications; K21.9 Gastro-esophageal reflux disease without esophagitis; E83.42 Hypomagnesemia; D50.9 Iron deficiency anemia, unspecified; E78.5 Hyperlipidemia, unspecified; D63.8 Anemia in other chronic diseases classified elsewhere; N40.0 Benign prostatic hyperplasia without lower urinary tract symptoms; F39 Unspecified mood [affective] disorder; E87.6 Hypokalemia; Z99.89 Dependence on other enabling machines and devices; Z79.01 Long term (current) use of anticoagulants; Z89.022 Acquired absence of left finger(s); Z87.891 Personal history of nicotine dependence; Z79.84 Long term (current) use of oral hypoglycemic drugs; Z88.8 Allergy status to other drugs, medicaments and biological substances

== ENCOUNTER 2018-09-07 03:57 | Emergency (ER) | payer MEDICARE ==
[2018-09-07] MEDS: MORPHINE 10 MG/ML 1ML VIAL (J2270) IM (05:40)
== END 2018-09-07 06:07 | disposition home or self-care (01) ==
LOC: M ED 03:57
DX: G57.12 Meralgia paresthetica, left lower limb (principal); E11.9 Type 2 diabetes mellitus without complications; I10 Essential (primary) hypertension; E78.5 Hyperlipidemia, unspecified; D64.9 Anemia, unspecified; K21.9 Gastro-esophageal reflux disease without esophagitis; I25.10 Atherosclerotic heart disease of native coronary artery without angina pectoris; Z79.899 Other long term (current) drug therapy; Z79.84 Long term (current) use of oral hypoglycemic drugs; Z79.01 Long term (current) use of anticoagulants; Z87.891 Personal history of nicotine dependence
CPT/HCPCS: J2270

== ENCOUNTER 2018-09-29 16:08 | Inpatient (IN) | payer MEDICARE, OTHER ==
[~2018-09-29] VITALS: Ht 175.3 cm; Wt 118.8 kg
[~2018-09-29 16:08] MED LIST changes: -CLON-404 PO; +CLON0.3T PO; +COUM1TAB19 PO; -COUM2.5T11 PO; +COUM2.5T17 PO; +DOCU100C16 PO; -DRIS50002 PO; +DRIS50003 PO; +FINA5TAB2 PO; +FURO40TA2 PO; +HYDR-3911 PO; -HYDR-4267 PO; +LOSA-4 PO; -LOSA100T36 PO; -METF1000 PO; +METF10004 PO; +METO25TA4 PO; +POTA10TA16 PO; +PREG50CA PO; -SIMV80TA PO; +SIMV80TA13 PO; +VITA-122 PO; +WARF-18 PO; +ZOCO40TA PO
[2018-09-29 17:09] LABS: BASO % 0.3 % (0.0-1.0); EOS # 0.3 10^3/uL (0.0-0.50); EOS % 2.4 % (0.0-3.0); HEMATOCRIT 36.6 % (42.0-52.0); HEMOGLOBIN 11.5 g/dl (13.5-17.5); LYMPH # 0.7 10^3/uL (1.5-4.5); LYMPH % 5.6 % (24.0-44.0); MEAN CORPUSCULAR HEMOGLOBIN 25.2 pg (27.0-33.0); MEAN CORPUSCULAR HGB CONC 31.4 g/dl (32.0-36.5); MEAN CORPUSCULAR VOLUME 80.3 fl (80.0-96.0); MONO # 0.8 10^3/uL (0.0-0.8); MONO % 6.3 % (0.0-5.0); NEUTROPHILS # 10.1 10^3/uL (1.8-7.7); NEUTROPHILS % 85.1 % (36.0-66.0); PLATELET COUNT, AUTOMATED 217 10^3/uL (150-450); RED BLOOD COUNT 4.56 10^6/uL (4.30-6.10); WHITE BLOOD COUNT 11.9 10^3/uL (4.0-10.0)
[2018-09-29] MEDS ORDERED: WARF-18 PO (17:17)
[2018-09-29] MEDS ORDERED: FERR32TA PO (17:17)
[2018-09-29] MEDS ORDERED: SIMV80TA13 PO (17:17)
[2018-09-29] MEDS ORDERED: OMEP20TA PO (17:17)
[2018-09-29] MEDS ORDERED: TRIA1CR80 TOP (17:17)
[2018-09-29] MEDS ORDERED: METO25TA4 PO (17:17)
[2018-09-29] MEDS ORDERED: ASCO250T PO (17:20)
[2018-09-29] MEDS ORDERED: ACET1TAB55 PO (17:20)
[2018-09-29 17:22] LABS: INR 3.52; PROTHROMBIN TIME 36.1 SECONDS (12.1-14.4)
[2018-09-29] MEDS ORDERED: DOCU100C16 PO (17:22)
[2018-09-29] MEDS ORDERED: CYCL5TAB PO (17:22)
[2018-09-29 17:24] LABS: D-DIMER QUANT 445.63 ng/ml (<500)
[2018-09-29] MEDS ORDERED: GLIP5TAB8 PO (17:24)
--- NOTE | 2018-09-29 17:36 | REP ---
Clinical: Cough and dyspnea. Comparison: 11/07/2016. Findings: Stable cardiomegaly and diffuse chronic interstitial changes are appreciated. Superimposed patchy infiltrates and atelectasis cannot be excluded. No effusion. No pneumothorax. Skeletal structures intact. Impression: 1. Cardiomegaly and chronic interstitial disease/fibrosis. 2. Patchy superimposed infiltrates cannot be excluded. Electronically Signed by Abraham Randolph MD 09/29/2018 05:28 P
[2018-09-29 17:45] LABS: ALBUMIN 2.8 GM/DL (3.2-5.2); ALT/SGPT 16 U/L (12-78); BILIRUBIN,DIRECT 0.3 MG/DL (0.0-0.2); BILIRUBIN,TOTAL 0.8 MG/DL (0.2-1.0); BLOOD UREA NITROGEN 23 MG/DL (7-18); CALCIUM LEVEL 8.2 MG/DL (8.8-10.2); CARBON DIOXIDE LEVEL 24 MEQ/L (21-32); CHLORIDE LEVEL 106 MEQ/L (98-107); CPK CREATINE PHOSPHOKINASE 50 U/L (39-308); CREATININE FOR GFR 1.28 MG/DL (0.70-1.30); GLOMERULAR FILTRATION RATE 59.3 (>49); GLUCOSE, FASTING 85 MG/DL (70-100); NT-PRO BNP 502 PG/ML (<125); POTASSIUM SERUM 3.7 MEQ/L (3.5-5.1); SODIUM LEVEL 141 MEQ/L (136-145); TOTAL PROTEIN 6.5 GM/DL (6.4-8.2); TROPONIN I < 0.02 NG/ML (< 0.10)
[2018-09-29 17:46] LABS: INFLUENZA A AMPLIFICATION NEGATIVE (NEGATIVE); INFLUENZA B AMPLIFICATION NEGATIVE (NEGATIVE)
[2018-09-29] MEDS ORDERED: ISOVUE-370 76% 100ML VIAL (Q9967) As Ordered ONE (17:58)
[2018-09-29 18:12] LABS: ABG HCO3 19.8 MEQ/L (22.0-26.0); ABG O2 SATURATION 92.6 % (95.0-99.0); ABG PARTIAL PRESSURE CO2 25.9 mmHg (35.0-45.0); ABG PARTIAL PRESSURE O2 60.6 mmHg (75.0-100.0); ABG STANDARD HCO3 22.7 MEQ/L (22.0-26.0); ABG TOTAL CO2 20.6 MEQ/L (23.0-31.0); ABG pH (ARTERIAL) 7.502 UNITS (7.350-7.450)
[2018-09-29] MEDS ORDERED: FUROSEMIDE 40 MG/4 ML VIAL (J1940) IV ONE (18:15)
--- NOTE | 2018-09-29 18:33 | REP ---
Clinical: Hypoxia. Technique: Axial contrast enhanced images from the thoracic inlet to the upper abdomen using 100 ml Isovue 370 intravenous contrast material with coronal and sagittal re-formations. Comparison: 11/07/2016. Findings: Satisfactory enhancement of the pulmonary vasculature is achieved and no filling defects are identified to suggest pulmonary embolus. Thoracic aorta is normal and without aneurysm or dissection. Atherosclerotic changes to the coronary arteries noted without cardiomegaly or pericardial effusion. The lung archuleta demonstrate a diffuse ground-glass pattern which is similar to prior examination along with mild mediastinal adenopathy. No dense consolidation, pleural effusion, or pneumothorax appreciated. These findings are similar to prior examination and differential diagnosis is not limited to varied interstitial pneumonias, sarcoidosis, pulmonary edema, alveolar proteinosis. The tracheobronchial tree is patent.. The surrounding musculoskeletal structures are intact. Limited upper abdomen demonstrates normal bilateral adrenal glands. Impression: 1. No evidence for pulmonary embolus. 2. Diffuse bilateral ground-glass opacities similar to prior examination with associated mild adenopathy. Differential diagnosis includes but is not limited to various interstitial pneumonias, sarcoidosis, pulmonary edema, alveolar proteinosis and early CHF. 3. Pulmonary consultation is recommended. Electronically Signed by Abraham Randolph MD 09/29/2018 06:24 P
[2018-09-29] MEDS ORDERED: DOCUSATE SODIUM 100 MG CAP PO PRN (22:00)
[2018-09-29] MEDS ORDERED: CYCLOBENZAPRINE 5MG TABLET PO PRN (22:00)
[2018-09-29] MEDS ORDERED: FUROSEMIDE 40 MG/4 ML VIAL (J1940) IV SCH (22:00)
[2018-09-29 22:47] LABS: CPK CREATINE PHOSPHOKINASE 44 U/L (39-308); TROPONIN I < 0.02 NG/ML (< 0.10)
[2018-09-29] MEDS: cefTRIAXone SOD 1 GM in D5W MINI-BAG PLUS 50 ML IV SCH (23:00)
[2018-09-30] VITALS: BP 140/70
[2018-09-30 01:15] LABS: APPEARANCE, URINE CLEAR (CLEAR); BACTERIA, URINE AUTO NEGATIVE (NEGATIVE); BILIRUBIN, URINE AUTO NEGATIVE (NEGATIVE); BLOOD, URINE BLOOD NEGATIVE (NEGATIVE); COLOR, URINE YELLOW (YELLOW); GLUCOSE, URINE (UA) AUTO NEGATIVE (NEGATIVE); KETONE, URINE AUTO NEGATIVE (NEGATIVE); LEUKOCYTE ESTERASE, URINE AUTO NEGATIVE (NEGATIVE); MUCUS, URINE SMALL (NEGATIVE); NITRITE, URINE AUTO NEGATIVE (NEGATIVE); PROTEIN, URINE AUTO NEGATIVE (NEGATIVE); RBC, URINE AUTO 2 /HPF (0-3); SPECIFIC GRAVITY URINE AUTO 1.033 (1.002-1.035); SQUAMOUS EPITHELIAL CELL UR AU 0 /HPF (0-6); UROBILINOGEN, URINE AUTO 0.2 mg/dL (0.0-2.0); WBC, URINE AUTO 0 /HPF (0-3)
[2018-09-30] MEDS: AZITHROMYCIN INJ 500 MG, VIAL MATE ADAPTER 1 EACH in D5W 250 ML IV SCH (02:33)
[2018-09-30] MEDS: FUROSEMIDE 40 MG/4 ML VIAL (J1940) IV SCH ×3 (02:34→16:59)
[2018-09-30 04:00] VITALS: BP 128/69
[2018-09-30 05:57] LABS: BASO % 0.4 % (0.0-1.0); EOS # 0.4 10^3/uL (0.0-0.50); EOS % 5.2 % (0.0-3.0); HEMATOCRIT 35.6 % (42.0-52.0); HEMOGLOBIN 11.1 g/dl (13.5-17.5); LYMPH # 1.2 10^3/uL (1.5-4.5); LYMPH % 15.6 % (24.0-44.0); MEAN CORPUSCULAR HEMOGLOBIN 24.6 pg (27.0-33.0); MEAN CORPUSCULAR HGB CONC 31.2 g/dl (32.0-36.5); MEAN CORPUSCULAR VOLUME 78.8 fl (80.0-96.0); MONO # 0.6 10^3/uL (0.0-0.8); MONO % 7.6 % (0.0-5.0); NEUTROPHILS # 5.5 10^3/uL (1.8-7.7); NEUTROPHILS % 70.7 % (36.0-66.0); PLATELET COUNT, AUTOMATED 229 10^3/uL (150-450); RED BLOOD COUNT 4.52 10^6/uL (4.30-6.10); WHITE BLOOD COUNT 7.8 10^3/uL (4.0-10.0)
[2018-09-30 06:07] LABS: INR 4.07; PROTHROMBIN TIME 40.5 SECONDS (12.1-14.4)
[2018-09-30 06:18] LABS: ALBUMIN 2.6 GM/DL (3.2-5.2); ALT/SGPT 14 U/L (12-78); BILIRUBIN,TOTAL 0.7 MG/DL (0.2-1.0); BLOOD UREA NITROGEN 22 MG/DL (7-18); CALCIUM LEVEL 8.3 MG/DL (8.8-10.2); CARBON DIOXIDE LEVEL 27 MEQ/L (21-32); CHLORIDE LEVEL 102 MEQ/L (98-107); CPK CREATINE PHOSPHOKINASE 44 U/L (39-308); CREATININE FOR GFR 1.37 MG/DL (0.70-1.30); GLOMERULAR FILTRATION RATE 54.8 (>49); GLUCOSE, FASTING 97 MG/DL (70-100); MB/CK RELATIVE INDEX 2.73 (< OR =4); POTASSIUM SERUM 3.1 MEQ/L (3.5-5.1); SODIUM LEVEL 140 MEQ/L (136-145); TOTAL PROTEIN 7.1 GM/DL (6.4-8.2); TROPONIN I < 0.02 NG/ML (< 0.10)
[2018-09-30] MEDS: HumaLOG INSULIN (NovoLOG) PER UNIT SC SCH ×4 (07:30→20:22)
[2018-09-30] MEDS ORDERED: glipiZIDE (GLUCOTROL) 5 MG TAB PO SCH (07:30)
[2018-09-30 08:00] VITALS: BP 124/79
[2018-09-30] MEDS ORDERED: POTASSIUM CHLORIDE 10 MEQ SR TABLET PO SCH (08:00)
[2018-09-30] MEDS ORDERED: POTASSIUM CHLORIDE 10 MEQ SR TABLET PO ONE (08:00)
--- NOTE | 2018-09-30 08:04 | ECGEPIP ---
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
[2018-09-30] MEDS ORDERED: DEXTROSE 50% 50 ML SYRINGE IV PRN (08:15)
[2018-09-30] MEDS ORDERED: GLUCOSE 4 GM CHEW TABLET PO PRN (08:15)
[2018-09-30] MEDS ORDERED: GLUCAGON FOR INJ 1 MG VIAL (J1610) SC PRN (08:15)
[2018-09-30] MEDS: KCL 10MEQ/100ML SWI (KRUN) 10 MEQ in APPROPRIATE DILUENT 1 EA IV SCH ×2 (08:27→09:44)
[2018-09-30] MEDS: METOPROLOL TART 12.5 MG PER 1/2 TAB PO SCH ×2 (08:27→20:20)
[2018-09-30] MEDS: SERTRALINE 100 MG TAB PO SCH (08:28)
[2018-09-30] MEDS: VITAMIN D 1,000 INTERNATIONAL UNITS TABLET PO SCH (08:28)
[2018-09-30] MEDS: OMEPRAZOLE 20 MG CAP PO SCH (08:28)
[2018-09-30] MEDS: FERROUS GLUCONATE 324 MG TAB PO SCH ×2 (08:28→20:21)
[2018-09-30] MEDS: buPROPion **SR TABLET** (ZYBAN) 150MG PO SCH (08:28)
[2018-09-30] MEDS: FINASTERIDE 5 MG TAB PO SCH (08:28)
[2018-09-30 09:28] LABS: FERRITIN 3734 NG/ML (26-388); IRON (FE) 69 UG/DL (65-175)
[2018-09-30] MEDS: methylPREDNISolone INJ 125 MG/2 ML VIAL (J2930) IV SCH ×2 (09:43→17:00)
[2018-09-30] MEDS ORDERED: SLF 3 ML SYR IV PRN (09:45)
[2018-09-30 12:00] VITALS: BP 123/66
--- NOTE | 2018-09-30 12:07 | IPNPDOC ---
Text Note Date of Service The patient was seen on 09/30/18. NOTE Patient is a 68-year-old male with a past medical history of idiopathic pulmon kar hemosiderosis, diastolic heart failure, diabetes, hypertension, hyperlipidemia, sleep apnea on CPAP at home, atrial fibrillation, currently on Coumadin, iron deficiency anemia, GERD who presented with shortness of breath. Patient had multiple episodes of hemoptysis prior to presentation SUBJECTIVE: Patient was seen and examined this morning. He continues on high flow nasal cannula at a rate of 15 L. He did admit to one episode of small hemoptysis since admission. Patient has followed up with academy director in [facility]. He was on prolonged course of prednisone in the past but steroid was discontinued. Patient denies fever or chill. OBJECTIVE: PHYSICAL EXAMINATION: GENERAL APPEARANCE: Alert no acute distress. On nasal cannula HEENT: NCAT LUNGS: Clear to auscultation bilaterally. HEART: Normal S1, S2. Irregularly irregular. ABDOMEN: Soft. Bowel sounds are present. MSK: Mild lower extremity edema. LABORATORY DATA: Please see below. IMAGING: CT angio taken on 09/29 2018: 1. No evidence for pulmonary embolus. 2. Diffuse bilateral ground-glass opacities similar to prior examination with associated mild adenopathy. Differential diagnosis includes but is not limited to various interstitial pneumonias, sarcoidosis, pulmonary edema, alveolar proteinosis and early CHF. 3. Pulmonary consultation is recommended. Chest x-ray taken on 09/29/18 1. Cardiomegaly and chronic interstitial disease/fibrosis. 2. Patchy superimposed infiltrates cannot be excluded Echo 11/08/17 1.Very mild concentric left ventricle hypertrophy. Normal left ventricle (LV) wall motion and wall thickening. Normal LV systolic function. Left ventricular ejection fraction (LVEF) 65%-70% by visual estimate. Unable to adequately assess LV diastolic function in the setting of atrial fibrillation. 2. Mild-moderate left atrial dilatation. 3. Suggestive of moderate elevation of pulmonary artery systolic pressure (44 mmHg). 4. Mild aortic valve sclerosis. 5. Mild mitral annular calcification. Trace mitral regurgitation. ASSESSMENT AND PLAN: Acute respiratory failure. - Patient demonstrates fluid overload. On diuretic, IV Lasix 40 mg every 8 hours with holding parameter. - Patient has history of idiopathic pulmonary hemosiderosis. Patient has hemoptysis. Pulmonary consulted. INR of 4. Warfarin on hold. Reverses INR with vitamin K. Continue to trending HH. On steroid. A. fib -Warfarin is currently supratherapeutic. Hold warfarin. reverse INR due to hemoptysis. Rate in satisfactory range. Hypertension- continue home meds History of idiopathic pulmonary hemosiderosis -Started IV steroid therapy. Pulmonology consulted. Obstructive sleep apnea- On CPAP. Diabetes mellitus -Sliding-scale insulin Hyperlipidemia- continue statin Iron deficiency anemia -Patient has had hemoptysis. Will continue to follow HH. DVT prophylaxis- On MELODY/Compression. VS,Fishbone, I+O VS, Fishbone, I+O Laboratory Tests 09/29/18 16:43 09/29/18 16:59 Red Blood Count 4.56, Mean Corpuscular Volume 80.3, Mean Corpuscular Hemoglobin 25.2 L, Mean Corpuscular Hemoglobin Concent 31.4 L, Red Cell Distribution Width 17.7 H, Neutrophils (%) (Auto) 85.1 H, Lymphocytes (%) (Auto) 5.6 L, Monocytes (%) (Auto) 6.3 H, Eosinophils (%) (Auto) 2.4, Basophils (%) (Auto) 0.3, Neutrophils # (Auto) 10.1 H, Lymphocytes # (Auto) 0.7 L, Monocytes # (Auto) 0.8, Eosinophils # (Auto) 0.3, Basophils # (Auto) 0.0 09/30/18 05:39 Red Blood Count 4.52, Mean Corpuscular Volume 78.8 L, Mean Corpuscular Hemoglobin 24.6 L, Mean Corpuscular Hemoglobin Concent 31.2 L, Red Cell Distribution Width 17.6 H, Neutrophils (%) (Auto) 70.7 H, Lymphocytes (%) (Auto) 15.6 L, Monocytes (%) (Auto) 7.6 H, Eosinophils (%) (Auto) 5.2 H, Basophils (%) (Auto) 0.4, Neutrophils # (Auto) 5.5, Lymphocytes # (Auto) 1.2 L, Monocytes # (Auto) 0.6, Eosinophils # (Auto) 0.4, Basophils # (Auto) 0.0, Calcium Level 8.3 L, Aspartate Amino Transf (AST/SGOT) 17, Alanine Aminotransferase (ALT/SGPT) 14, Total Creatine Kinase 44, Alkaline Phosphatase 71, Total Bilirubin 0.7, Total Protein 7.1, Albumin 2.6 L Vital Signs Date Time Temp Pulse Resp B/P (MAP) Pulse Ox O2 Delivery O2 Flow Rate FiO2 09/30/18 08:27 84 124/79 09/30/18 08:00 15.0 09/30/18 08:00 97.1 19 93 High Flow Cannula I&O- Last 24 Hours up to 6 AM 09/30/18 06:00 Intake Total 0 ml Output Total 1775 ml Balance -1775 ml GME ATTESTATION GME ATTESTATION My faculty preceptor for this patient encounter was physically present during the encounter and was fully available. All aspects of the patient interview, examination, medical decision making process, and medical care plan development were reviewed and approved by the faculty preceptor. The faculty preceptor is aware and concurs with the plan as stated in the body of this note and will attest to such by his/her cosignature. KEYON GREEN DO Sep 30, 2018 12:07 NEMESIO GUEVARA DO Sep 30, 2018 19:07
[2018-09-30] MEDS ORDERED: PHYTONADIONE 5 MG TAB PO ONE (13:00)
[2018-09-30 13:54] LABS: CPK CREATINE PHOSPHOKINASE 55 U/L (39-308); MB/CK RELATIVE INDEX 2.91 (< OR =4); TROPONIN I < 0.02 NG/ML (< 0.10)
[2018-09-30] MEDS: SLF 3 ML SYR IV SCH ×2 (14:00→22:00)
[2018-09-30 16:00] VITALS: BP 144/74
[2018-09-30] MEDS: SPIRONOLACTONE 25 MG TAB PO SCH (16:59)
[2018-09-30 17:17] LABS: HEMATOCRIT 37.6 % (42.0-52.0); HEMOGLOBIN 12.2 g/dl (13.5-17.5)
[2018-09-30 20:00] VITALS: BP 127/76
[2018-09-30] MEDS: TERAZOSIN 5 MG CAP PO SCH (20:21)
[2018-09-30] MEDS: SIMVASTATIN 40 MG TAB PO SCH (20:21)
[2018-09-30] MEDS: cefTRIAXone SOD 1 GM in D5W MINI-BAG PLUS 50 ML IV SCH (23:00)
[2018-09-30 23:13] LABS: HEMATOCRIT 36.3 % (42.0-52.0); HEMOGLOBIN 11.5 g/dl (13.5-17.5)
[2018-09-30 23:42] LABS: INR 2.43; PROTHROMBIN TIME 26.9 SECONDS (12.1-14.4)
[2018-10-01] VITALS (8 sets, daily range): BP systolic 108–161; BP diastolic 62–73
[2018-10-01] MEDS: FUROSEMIDE 40 MG/4 ML VIAL (J1940) IV SCH ×3 (00:02→17:15)
[2018-10-01] MEDS: methylPREDNISolone INJ 125 MG/2 ML VIAL (J2930) IV SCH ×2 (00:13→09:48)
[2018-10-01] MEDS: AZITHROMYCIN INJ 500 MG, VIAL MATE ADAPTER 1 EACH in D5W 250 ML IV SCH (00:13)
[2018-10-01 05:17] LABS: BASO % 0.1 % (0.0-1.0); HEMATOCRIT 37.4 % (42.0-52.0); HEMOGLOBIN 11.8 g/dl (13.5-17.5); LYMPH # 0.6 10^3/uL (1.5-4.5); LYMPH % 6.6 % (24.0-44.0); MEAN CORPUSCULAR HEMOGLOBIN 24.8 pg (27.0-33.0); MEAN CORPUSCULAR HGB CONC 31.6 g/dl (32.0-36.5); MEAN CORPUSCULAR VOLUME 78.7 fl (80.0-96.0); MONO # 0.2 10^3/uL (0.0-0.8); MONO % 2.7 % (0.0-5.0); NEUTROPHILS # 7.9 10^3/uL (1.8-7.7); NEUTROPHILS % 89.9 % (36.0-66.0); PLATELET COUNT, AUTOMATED 225 10^3/uL (150-450); RED BLOOD COUNT 4.75 10^6/uL (4.30-6.10); WHITE BLOOD COUNT 8.8 10^3/uL (4.0-10.0)
[2018-10-01 05:26] LABS: INR 1.74; PROTHROMBIN TIME 20.6 SECONDS (12.1-14.4)
[2018-10-01 05:48] LABS: ALBUMIN 2.7 GM/DL (3.2-5.2); BILIRUBIN,TOTAL 0.3 MG/DL (0.2-1.0); CALCIUM LEVEL 9.1 MG/DL (8.8-10.2); CREATININE FOR GFR 1.38 MG/DL (0.70-1.30); GLOMERULAR FILTRATION RATE 54.4 (>49); TOTAL PROTEIN 7.4 GM/DL (6.4-8.2)
[2018-10-01] MEDS: SLF 3 ML SYR IV SCH ×3 (06:00→21:42)
[2018-10-01] MEDS: VITAMIN D 1,000 INTERNATIONAL UNITS TABLET PO SCH (09:47)
[2018-10-01] MEDS: SERTRALINE 100 MG TAB PO SCH (09:47)
[2018-10-01] MEDS: buPROPion **SR TABLET** (ZYBAN) 150MG PO SCH (09:47)
[2018-10-01] MEDS: METOPROLOL TART 12.5 MG PER 1/2 TAB PO SCH ×2 (09:47→21:41)
[2018-10-01] MEDS: OMEPRAZOLE 20 MG CAP PO SCH (09:47)
[2018-10-01] MEDS: SPIRONOLACTONE 25 MG TAB PO SCH ×2 (09:47→17:50)
[2018-10-01] MEDS: HumaLOG INSULIN (NovoLOG) PER UNIT SC SCH ×4 (09:48→21:00)
[2018-10-01] MEDS: FERROUS GLUCONATE 324 MG TAB PO SCH ×2 (09:48→21:41)
[2018-10-01] MEDS: FINASTERIDE 5 MG TAB PO SCH (09:51)
--- NOTE | 2018-10-01 11:56 | REP ---
CHEST X-RAY: Two views. HISTORY: Hypoxia. COMPARISON CHEST X-RAY: September 29, 2018. FINDINGS: EKG monitoring electrodes overlie the chest. There are multiple old healed right-sided rib fractures again noted. Degenerative changes are seen in the thoracic spine. There is a coarse linear opacity in the lingular distribution consistent with atelectasis. In addition interstitial markings appear diffusely somewhat prominent. This is unchanged from the comparison study. No other evidence of new infiltrate. IMPRESSION: Discoid atelectatic pattern lingular segment left upper lobe. Diffuse interstitial pattern in the perihilar regions as before. No evidence of pleural effusion. Electronically Signed by Jet Alvarez MD 10/01/2018 06:45 P
--- NOTE | 2018-10-01 13:40 | CR ---
DATE OF CONSULTATION: 10/01/2018 REFERRING PROVIDER: Dr. Morse PRIMARY CARE PHYSICIAN: [facility] ATTENDING PHYSICIAN: Dr. Franklin Flowers REASON FOR CONSULTATION/CHIEF COMPLAINT: Acute respiratory failure and hemoptysis. HISTORY OF PRESENT ILLNESS: Mr. Quintero is a 68-year-old male who was in his usual state of health until three days prior to admission when he developed difficulty breathing with shortness of breath with exertion that was progressive. He noted that he had three isolated episodes of very mild hemoptysis. The patient is not oxygen dependent at home. His symptoms progressed over three days prior to his admission to the hospital. He denies fevers, night sweats, chills. He states [place] he was at his sons. There were no sick contacts at that time although the patient does note that his son-in-law and his son developed some nonspecific viral illness after . The patient states that he did have his flu shot this year. The patient states that he initially had developed shortness of breath with exertion going from his bed to the car or from the parlor to the bathroom. The patient does state that he uses a walker at home secondary to a pinched nerve in his left lower back. He states that he does feel unsteady on his feet secondary to pain in his left knee. He otherwise does not feel weak, lightheaded or dizzy. The patient notes that he sleeps on one pillow at night and he maybe possibly noted some very minimal lower extremity edema. The patient states he does not weigh himself, but that he thinks that he has lost weight. He was recently at the [facility] in [place] and weighed 265 pounds. Notes at time of admission he weighed 260 pounds in our facility. The patient has a remote history of idiopathic pulmonary hemosiderosis which was diagnosed in 2004. He follows with all of his primary care and specialty care needs at [facility]. Pulmonology was consulted for recommendations regarding patient's acute respiratory failure and hemoptysis. REVIEW OF SYSTEMS: The patient states that he does have some vision changes as he has had two left sided retinal detachment surgeries and admits to tinnitus. He has had a decreased appetite, but not due to difficulty or painful swallowing. He just has not felt hungry. The patient furthermore notes that he has not had a bowel movement since being in the hospital. Otherwise negative besides what is listed in the history of present illness. ALLERGIES: - ALBUTEROL - AMLODIPINE - ATENOLOL HOME MEDICATIONS: - acetaminophen 975 mg by mouth three times a day - ascorbic acid 250 mg by mouth daily - bupropion 150 mg by mouth daily - cholecalciferol 1000 units by mouth daily - cyclobenzaprine 5 mg by mouth three times a day as needed for muscle spasms - docusate 100 mg by mouth twice a day as needed for constipation - ferrous gluconate 648 mg by mouth twice a day - finasteride 5 mg by mouth daily - furosemide 80 mg by mouth every a.m. - glipizide 2.5 mg by mouth daily which he takes before breakfast - metoprolol tartrate 12.5 mg by mouth twice a day - omeprazole 40 mg by mouth daily - potassium chloride 20 mEq by mouth twice a day with meals - Sertraline 200 mg by mouth daily - simvastatin 40 mg by mouth at bedtime - terazosin 10 mg by mouth at bedtime - triamcinolone acetonide 1 dose topically twice a day as needed for rash/itching - warfarin 5 mg by mouth at bedtime PAST MEDICAL HISTORY: 1. Idiopathic pulmonary hemosiderosis. 2. Depression. 3. Vitamin D deficiency. 4. Muscle spasms. 5. Constipation. 6. Iron deficiency anemia. 7. Benign prostatic hyperplasia. 8. Congestive heart failure, diastolic, with left ventricular ejection fraction of 65-70%. 9. Diabetes. 10. Atrial fibrillation. 11. Gastroesophageal reflux disease. 12. Dyslipidemia. PAST SURGICAL HISTORY: 1. Left cataract surgery. 2. Right bilobar wedge resection with bronchoscopy and bronchoalveolar lavage (BAL). 3. Esophagogastroduodenoscopy (EGD). 4. Colonoscopy. 5. Pulmonary function tests (PFTs). 6. Left detached retina repair. 7. Tonsillectomy. FAMILY HISTORY: Father is in his 80s from kidney failure. Mother is in her 60s from pancreatic cancer. The patient has one sister who is from ovarian cancer at age 58-59. SOCIAL HISTORY: The patient lives independently with his of 41 years. They have three adult children, six grandchildren and three great grandchildren. The patient has a remote tobacco history and started smoking in 1968 and quit at age 33. He smoked one pack per day. He has a remote alcohol history. Denies illicit drug use. 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 Currently disabled secondary to idiopathic pulmonary hemosiderosis. PHYSICAL EXAMINATION: Vital Signs: Temperature 98.6, heart rate 82, respiratory rate 20, blood pressure 122/73, pulse oximetry 95% on 3 liters high flow cannula. General Appearance: Morbidly obese male sitting on the edge of the bed and alert and conversant without any conversational dyspnea and without any acute distress. HEENT: Atraumatic, normocephalic. Pupils equal, round, and reactive to light. Extraocular muscles intact. Oral mucosa pink and moist. Nasal septum appears midline. Nares are patent. Nasal cannula in place. Respiratory: Clear to auscultation in upper, middle and lower lobes bilaterally with good inspiratory and expiratory effort. No wheeze, rhonchi, crackles. No focal consolidations. Cardiovascular: Irregularly irregular heart rate and rhythm, variable S1 and S2. No murmur, rub, or click. Abdomen: Obese, round, nondistended, soft. Several isolated and discrete nodules palpated throughout the abdominal exam. Bowel sounds are present throughout. Extremities: No clubbing, no cyanosis. No peripheral edema. Knee high sequential stockings in place on the lower extremities bilaterally. Peripheral pulses are appreciated upper and lower extremities bilaterally and are equal. Neurological: Alert and conversant, no focal neurological deficit. Psychiatric: Mood and affect are appropriate. LABORATORY DATA: WBC 8.8, hemoglobin 11.8, hematocrit 37.4, platelets 225. Sodium 140, potassium 4, chloride 104, carbon dioxide 27, BUN 32, creatinine 1.38, glucose 164, calcium 9.1, total bilirubin 0.3, AST 51, ALT 56, alkaline phosphatase 78, albumin 2.7, total protein 7.4. Reported Troponin less than 0.02. ABG on 09/29/2018 revealed a pH of 7.50, pCO2 25.9, pO2 60.6, bicarbonate 20.6. PT/INR 20.6/1.74 respectively. Urinalysis on 09/30/2018 was negative. Serology: Influenza A and B were negative. Microbiology: Revealed no growth in blood cultures and a negative respiratory panel. IMAGING: Portable chest x-ray on 09/29/2018 revealed cardiomegaly and chronic interstitial disease/fibrosis with patchy superimposed infiltrates that cannot be excluded. CT angiogram of the chest on 09/29/2018 revealed no pulmonary embolism with diffuse bilateral ground glass opacities which are similar to prior examinations. ASSESSMENT AND PLAN: This is a 68-year-old male with significant past medical history of idiopathic pulmonary hemosiderosis with atrial fibrillation and diastolic congestive heart failure who presents with shortness of breath and hemoptysis. 1. Idiopathic pulmonary hemosiderosis. 2. Respiratory alkalosis. 3. Acute hypoxemic respiratory failure. 4. Hemoptysis. Since our evaluation, the patient is doing so much better from a respiratory standpoint. He is currently on nasal cannula at 3 liters and saturating at 95%. Recommendations include ambulating patient on room air while measuring his pulse oximeter. Patient is not oxygen dependent at home. The goal would be to get him breathing ambient air prior to discharge. Further recommendations include high-dose steroids which he is currently on Solu-Medrol 60 mg IV every 8 hours. It would be advisable to continue high dose steroids for at least 7 days with a tapering dose over the next 3 weeks or so. Would recommend a followup with pulmonary specialty at the [place]. Patient is no longer hemoptizing. His hemoglobin and hematocrit are stable. His INR was supratherapeutic at the time of presentation but is currently subtherapeutic at 1.74. Would consider restarting patient's warfarin. It is a great pleasure that we get to participate in the care of Mr. Quintero. Please feel free to reach out with any further questions or clarifications. My faculty preceptor for this patient encounter was physically present during the encounter and was fully available. All aspects of the patient interview, examination, medical decision making process, and medical care plan development were reviewed and approved by the faculty preceptor. The faculty preceptor is aware and concurs with the plan as stated in the body of this note and will attest to such by his/her co-signature. SIRISHA
--- NOTE | 2018-10-01 16:34 | HPE ---
DATE OF ADMISSION: 09/29/2018 CHIEF COMPLAINT: Increasing shortness of breath over the last three days. The patient was sent from the [facility] to the emergency room. He has been having worsening shortness of breath over the last 3-4 days. He went to the [place] clinic and they sent him to the emergency room. Upon arrival, his oxygen saturation was 73% on room air. He was placed on nasal cannula with improvement of a saturation of oxygen (SaO2) to 93%. EKG was done which showed atrial fibrillation of 96%. He has had that chronically. He is on Coumadin. LABORATORY STUDIES: White count was elevated slightly at 11.9, hemoglobin 11.5, hematocrit 36.6, platelets 217. Sodium was 141, potassium 3.7, chloride 106, anion gap 11, BUN was 23, creatinine 1.2, proBNP was 502, INR was slightly elevated at 3.5 and we will hold Coumadin. ABG showed pH of 7.5, pO2 of 60, CO2 was 25.9. Influenza A and B were negative. Chest x-ray was done which showed cardiomegaly and chronic interstitial disease, fibrosis, patchy superimposed infiltrates could not be excluded. A CT angiogram was done which showed no evidence of pulmonary emboli, diffuse bilateral ground-glass opacities similar to prior examination. Differential diagnosis included but not limited to various interstitial pneumonias, sarcoidosis, pulmonary edema, CHF. The patient said he had noticed lower extremity increasing edema. He had taken two of his Lasix at home as opposed to one. He denied having any hemoptysis. The patient was placed on high flow oxygen to maintain oxygen saturation greater than 90%. The patient was given 40 of IV Lasix and put out 1250 mL with improvement in his breathing. Assessment was done. Blood cultures were done. The patient will be admitted inpatient status with congestive heart failure and treated also for possible underlying pneumonia, history of atrial fibrillation. International normalized ratio (INR) is slightly elevated. We will hold Coumadin. Thromboembolic-deterrent stockings (TEDS) for deep vein thrombosis (DVT) prophylaxis and early ambulation. The patient will be admitted to the progressive care unit (PCU). ALLERGIES: ALBUTEROL, AMLODIPINE, and ATENOLOL. SOCIAL HISTORY: He is . He does not smoke cigarettes. He rarely drinks alcohol. He does not use recreational drugs. PAST MEDICAL HISTORY: 1. He has a history of atrial fibrillation. 2. History of obstructive sleep apnea, wears continuous positive airway pressure (CPAP) at night and for naps. 3. History of [id number]-[id number] diabetes type 2. 4. History of anemia. 5. History of contact dermatitis. 6. History of idiopathic pulmonary hemosiderosis. 7. History of hyperlipidemia. 8. Hypertension. PAST SURGICAL HISTORY: 1. Repair detached left retina. 2. Lung biopsy and bronchoscopy 2004. 3. Tonsillectomy. 4. Left middle finger amputation. FAMILY HISTORY: Noncontributory. Previous echocardiogram 11/08/2016 showed atrial fibrillation, atrial ventricular response, left ventricular ejection fraction was 65% to 70%, aortic valve sclerosis, moderate elevation of pulmonary systolic pressure, mild to moderate left atrial dilatation. Assessment was done. The patient will be admitted for congestive heart failure (CHF) and treated for possible underlying pneumonia. HOME MEDICATIONS: - Tylenol 975 by mouth three times a day - Lasix 80 mg every morning - triamcinolone cream twice a day as needed for itching - warfarin sodium 5 mg by mouth at bedtime - ascorbic acid 250 daily - bupropion 150 mg by mouth daily - vitamin D 1000 units daily - cyclobenzaprine 5 mg by mouth three times a day as needed for muscle spasm - Colace 100 mg by mouth twice a day as needed - ferrous gluconate 325 two by mouth twice a day - Proscar 5 mg by mouth daily - glipizide 2.5 mg by mouth daily - metoprolol tartrate 12.5 by mouth twice a day - omeprazole 40 mg by mouth daily - potassium 20 mEq by mouth twice a day - sertraline 200 mg by mouth daily - simvastatin 40 mg by mouth at bedtime - terazosin 10 mg by mouth at bedtime FAMILY HISTORY: Noncontributory. REVIEW OF SYSTEMS: No complaint of headache. No blurred or double vision. No fever. No chills. No tinnitus. No hoarseness. No difficulty swallowing. No lightheadedness. No vertigo. Cardiovascular: No complaint of chest pain. He has increased shortness of breath and lower extremity edema. Respiratory: He has had increased cough, shortness of breath. Denies hemoptysis. No orthopnea. He has had increased shortness of breath. Gastrointestinal (GI): No nausea, vomiting or diarrhea. No hematochezia. No melena. No complaints of abdominal pain. Genitourinary (): No hematuria, dysuria or frequency. Musculoskeletal: No joint redness or swelling. Endocrine: History of [id number] diabetes type 2. Hematological: History of iron deficiency anemia. Neurological: History of paresthesias. No history of seizures. Psychological: No anxiety, depression or suicidal ideation. PHYSICAL EXAMINATION: A 68-year-old cooperative male. Temperature 99, blood pressure 140/80, pulse 100, respirations 20. Pupils are equal and react to light. Extraocular muscles intact. Cornea and sclerae are clear. Conjunctiva is normal. No facial asymmetry. Pharynx, tongue and gums pink and moist. Tongue is midline. Neck is supple without lymphadenopathy. No thyromegaly. No goiter. Jugular venous pressure is at 2-4 at 60 degrees. Chest has decreased breath sounds. No wheeze or retractions. Heart is irregular. Abdomen is benign. Bowel sounds are positive. Genitourinary ()/rectal: Not done. Extremities show trace to +1 bilateral lower extremity pedal and ankle edema. Peripheral pulse equal and palpable bilaterally. IMPRESSION AND PLAN: Admit patient inpatient status, hospitalist service to the service of Dr. Morse. 1. Acute respiratory failure. IV Lasix every eight hours. Continue high flow oxygen. Monitor oxygen saturations. 2. Atrial fibrillation. International normalized ratio (INR) is 3.5. We will hold Coumadin. Place on telemetry. 3. Elevated white count, possible underlying pneumonia. Cover with antibiotics. Send sputum culture. 4. Hypertension. Continue metoprolol. 5. Hypercholesterolemia. Continue simvastatin. 6. Obstructive sleep apnea. Continue continuous positive airway pressure (CPAP). 7. History of idiopathic hemosiderosis. Denies hemoptysis. 8. Iron deficiency anemia. Continue iron. 9. Deep vein thrombosis (DVT) prophylaxis. Thromboembolic-deterrent stockings (TEDS). 10. Gastroesophageal reflux disease (GERD). Continue proton pump inhibitor.
[2018-10-01] MEDS ORDERED: methylPREDNISolone INJ 40 MG/1 ML VIAL (J2920) IV SCH (17:00)
[2018-10-01] MEDS: WARFARIN SOD 7.5 MG TAB PO SCH (19:38)
--- NOTE | 2018-10-01 19:38 | IPN ---
DATE: 10/01/2018 SUBJECTIVE: Patient seen and examined in the room today. According to the patient his breathing showing continuous improvement. Patient denies recurrence of the hemoptysis. OBJECTIVE: Vital signs; temperature is 98.6, pulse 82, respiratory 20, blood pressure 122/73, pulse ox 97% with 5 liters nasal cannula. GENERAL: No sign of acute distress. Morbidly obese. Alert and oriented times three. HEENT: Normocephalic, atraumatic. Extraocular motor grossly intact. CARDIOVASCULAR: Irregularly irregular Positive S1, S2. LUNGS: Clear to auscultation bilaterally. ABDOMEN: Soft, non-tender, non-distended. Bowel sounds present. EXTREMITIES: Mild edema bilaterally. LABORATORY DATA: WBC 8.8, hemoglobin 11.8, hematocrit 37.4, platelet count is 225. Sodium 140, potassium 4, chloride 104, carbon dioxide 27, BUN 32, creatinine is 1.3. Glomerular filtration rate (GFR) is 54.4 Fating glucose 164, joey 9.1. Total bilirubin 0.3. AST 51, ALT 46, alkaline phosphatase is 78. Total protein 7.4, albumin 2.7. ASSESSMENT AND PLAN: 1. Acute respiratory failure with hemoptysis. At baseline patient does not use any oxygen at home. On admission patient required 15 liter high flow oxygen to maintain saturation of Oxygen sat. Prior to admission patient also noted to have hemoptysis. Imaging study demonstrates patient has sign of fluid overload. Patient started on IV Lasix. Patient does have history of idiopathic pulmonary hemosiderosis. Pulmonary consulted. Per recommendation Warfarin was reversed. Continue to follow hemoglobin and hematocrit. Patient also started on steroids. 2. Atrial fibrillation. INR was reversed due to hemoptysis and there is no recurrence of hemoptysis. Patient started on Warfarin. Heart rate in the satisfactory range. Patient on metoprolol twice a day. 3. History of idiopathic pulmonary hemosiderosis. On steroids. Pulmonary consulted. 4. Obstructive sleep apnea. On continuous positive airway pressure (CPAP). 5. Diabetes. On sliding scale. 6. Dyslipidemia. On statin. 7. Deep vein thrombosis prophylaxis. On thromboembolic deterrent stockings (TEDS) compression.
[2018-10-01] MEDS: TERAZOSIN 5 MG CAP PO SCH (21:42)
[2018-10-01] MEDS: SIMVASTATIN 40 MG TAB PO SCH (21:42)
--- NOTE | 2018-10-01 22:09 | ECHO ---
DATE OF PROCEDURE: 10/01/2018 REFERRING PHYSICIAN: Josee Morse MD PATIENT LOCATION: Room 3226 REASON FOR ECHOCARDIOGRAM: Heart failure, unspecified. 2D MEASUREMENTS: IVS: 1.2 cm LV: 4.8 cm LVPW: 1.1 cm LA: 4.6 cm Aorta: 3.1 cm IVC: 1.0 cm DOPPLER MEASUREMENTS: Peak velocity across the aortic valve: 1.7 m/s Peak velocity across the LVOT: 1.2 m/s Mitral E: 0.95. Maximum tricuspid valve velocity: 3.2 m/s 2D COMMENTS: 1. Normal left ventricular size and wall thickness with a normal global left ventricular systolic function estimated at 65 to 70%. Subjectively, there is mild concentric left ventricular hypertrophy. 2. Mildly enlarged left atrium. The right atrium appeared to be mildly enlarged. Normal right ventricle. 3. The atrial septum appeared to be normal without evidence of defect or shunt. 4. Normal aortic root. 5. No pericardial effusion seen. 6. Mildly calcified aortic valve, leaflet excursion appeared to be normal. Mildly calcified mitral annulus with normal anterior mitral valve leaflet motion. Normal tricuspid valve. The pulmonic valve and proximal pulmonary artery branches were not well visualized. 7. The inferior vena cava was normal in size, central venous pressure might be normal. DOPPLER: It detects trace mild regurgitation, mild tricuspid regurgitation. The calculated pulmonary artery systolic pressure varies between 40 to 50 mmHg. Assessment of the left ventricular diastolic function was limited in view of the underlying atrial fibrillation. IMPRESSION: 1. Normal global left ventricular systolic function. There is probably mild concentric left ventricular hypertrophy. 2. Aortic valve sclerosis with trivial aortic stenosis, but no aortic regurgitation. 3. Mitral annulus calcification with mildly enlarged left atrium and trace mitral regurgitation. 4. Mild tricuspid regurgitation with probably moderate pulmonary hypertension. The right atrium appeared to be mildly enlarged. 5. Not mentioned above, a sigmoid appearance of the basal ventricular septum was noted, a benign finding.
[2018-10-01] MEDS: cefTRIAXone SOD 1 GM in D5W MINI-BAG PLUS 50 ML IV SCH (23:16)
[2018-10-02] MEDS: AZITHROMYCIN INJ 500 MG, VIAL MATE ADAPTER 1 EACH in D5W 250 ML IV SCH ×2 (00:41→23:38)
[2018-10-02 04:00] VITALS: BP 119/69
[2018-10-02 04:49] LABS: BASO % 0.2 % (0.0-1.0); EOS % 0.1 % (0.0-3.0); HEMOGLOBIN 11.3 g/dl (13.5-17.5); LYMPH # 1.3 10^3/uL (1.5-4.5); LYMPH % 9.9 % (24.0-44.0); MEAN CORPUSCULAR HEMOGLOBIN 25.1 pg (27.0-33.0); MEAN CORPUSCULAR HGB CONC 32.3 g/dl (32.0-36.5); MEAN CORPUSCULAR VOLUME 77.8 fl (80.0-96.0); MONO % 7.6 % (0.0-5.0); NEUTROPHILS # 11.1 10^3/uL (1.8-7.7); NEUTROPHILS % 81.6 % (36.0-66.0); PLATELET COUNT, AUTOMATED 223 10^3/uL (150-450); WHITE BLOOD COUNT 13.5 10^3/uL (4.0-10.0)
[2018-10-02 04:59] LABS: INR 1.22; PROTHROMBIN TIME 15.6 SECONDS (12.1-14.4)
[2018-10-02 05:13] LABS: ALBUMIN 2.7 GM/DL (3.2-5.2); BILIRUBIN,TOTAL 0.3 MG/DL (0.2-1.0); CALCIUM LEVEL 8.7 MG/DL (8.8-10.2); CREATININE FOR GFR 1.38 MG/DL (0.70-1.30); GLOMERULAR FILTRATION RATE 54.4 (>49); POTASSIUM SERUM 3.5 MEQ/L (3.5-5.1); TOTAL PROTEIN 6.9 GM/DL (6.4-8.2)
[2018-10-02] MEDS: SLF 3 ML SYR IV SCH ×3 (06:00→20:13)
[2018-10-02] MEDS: HumaLOG INSULIN (NovoLOG) PER UNIT SC SCH ×4 (07:30→20:11)
[2018-10-02 08:00] VITALS: BP 130/76
[2018-10-02] MEDS: OMEPRAZOLE 20 MG CAP PO SCH (09:03)
[2018-10-02] MEDS: FINASTERIDE 5 MG TAB PO SCH (09:03)
[2018-10-02] MEDS: VITAMIN D 1,000 INTERNATIONAL UNITS TABLET PO SCH (09:03)
[2018-10-02] MEDS: SPIRONOLACTONE 25 MG TAB PO SCH ×2 (09:04→17:48)
[2018-10-02] MEDS: FERROUS GLUCONATE 324 MG TAB PO SCH ×2 (09:04→20:11)
[2018-10-02] MEDS: SERTRALINE 100 MG TAB PO SCH (09:04)
[2018-10-02] MEDS: FUROSEMIDE 80 MG TAB PO SCH ×2 (09:04→17:48)
[2018-10-02] MEDS: predniSONE 20 MG TAB PO SCH (09:04)
[2018-10-02] MEDS: METOPROLOL TART 12.5 MG PER 1/2 TAB PO SCH ×2 (09:05→20:11)
[2018-10-02] MEDS: buPROPion **SR TABLET** (ZYBAN) 150MG PO SCH (09:05)
--- NOTE | 2018-10-02 10:29 | IPNPDOC ---
Text Note Date of Service The patient was seen on 10/02/18. NOTE CC: Shortness of breath Patient is a 68-year-old male with a past medical history of idiopathic pulmonary hemosiderosis, diastolic heart failure, diabetes, hypertension, hyperl ipidemia, sleep apnea on CPAP at home, atrial fibrillation, currently on Coumadin, iron deficiency anemia, GERD who presented with shortness of breath. Patient had multiple episodes of hemoptysis prior to presentation SUBJECTIVE: Patient was examined at bed side. He reports that he is feeling better. He in currently on room air and reports no breathing difficulty. He denies hemoptysis. OBJECTIVE: PHYSICAL EXAMINATION: GENERAL APPEARANCE: Alert, pleasant older gentleman, resting comfortably in bed LUNGS: Clear to auscultation bilaterally. HEART: Normal S1, S2. Irregularly irregular. , No murmurs, rubs or gallops ABDOMEN: Soft. Bowel sounds are present. Obese abdomen MSK: Mild lower extremity edema. LABORATORY DATA: Please see below. IMAGING: CT angio taken on 09/29 2018: 1. No evidence for pulmonary embolus. 2. Diffuse bilateral ground-glass opacities similar to prior examination with associated mild adenopathy. Differential diagnosis includes but is not limited to various interstitial pneumonias, sarcoidosis, pulmonary edema, alveolar proteinosis and early CHF. 3. Pulmonary consultation is recommended. Chest x-ray taken on 09/29/18 1. Cardiomegaly and chronic interstitial disease/fibrosis. 2. Patchy superimposed infiltrates cannot be excluded Echo 11/08/17 1.Very mild concentric left ventricle hypertrophy. Normal left ventricle (LV) wall motion and wall thickening. Normal LV systolic function. Left ventricular ejection fraction (LVEF) 65%-70% by visual estimate. Unable to adequately assess LV diastolic function in the setting of atrial fibrillation. 2. Mild-moderate left atrial dilatation. 3. Suggestive of moderate elevation of pulmonary artery systolic pressure (44 mmHg). 4. Mild aortic valve sclerosis. 5. Mild mitral annular calcification. Trace mitral regurgitation. ASSESSMENT AND PLAN: Acute respiratory failure secondary to fluid over load. 2/2 to history of idiopathic pulmonary hemosiderosis - Started on IV lasix, currently on PO lasix -He reports improved breathing, denies SOB -Currently on room air, with improve oxygen saturation -pulmonology consulted -Ambulate with oxygen A. fib - patient had hemoptysis and INR was reversed per pulmonology recommendation. -Current INR is 1.2, subtherapeutic, he was previously supratherapeutic and v itamin K was giving due to reported hemoptysis on 09/30/18 -Denies any further hemoptysis -restarted anticoagulation Hypertension- continue home meds History of idiopathic pulmonary hemosiderosis -Started IV steroid therapy initially, Switched to PO prednisone on 10/02/18 Obstructive sleep apnea- -On CPAP at night Diabetes mellitus -Sliding-scale insulin Hyperlipidemia- continue statin Iron deficiency anemia -Will continue to follow HH. DVT prophylaxis- On MELODY/Compression. restarted warfarin VS,Fishbone, I+O VS, Fishbone, I+O Laboratory Tests 10/02/18 04:25 Red Blood Count 4.50, Mean Corpuscular Volume 77.8 L, Mean Corpuscular Hemoglobin 25.1 L, Mean Corpuscular Hemoglobin Concent 32.3, Red Cell Distribution Width 17.0 H, Neutrophils (%) (Auto) 81.6 H, Lymphocytes (%) (Auto) 9.9 L, Monocytes (%) (Auto) 7.6 H, Eosinophils (%) (Auto) 0.1, Basophils (%) (Auto) 0.2, Neutrophils # (Auto) 11.1 H, Lymphocytes # (Auto) 1.3 L, Monocytes # (Auto) 1.0 H, Eosinophils # (Auto) 0.0, Basophils # (Auto) 0.0, Calcium Level 8.7 L, Aspartate Amino Transf (AST/SGOT) 70 H, Alanine Aminotransferase (ALT/SGPT) 86 H, Alkaline Phosphatase 77, Total Bilirubin 0.3, Total Protein 6.9, Albumin 2.7 L Vital Signs Date Time Temp Pulse Resp B/P (MAP) Pulse Ox O2 Delivery O2 Flow Rate FiO2 10/02/18 09:05 80 130/76 10/02/18 08:00 97.9 18 93 Room Air 10/01/18 12:00 3.0 I&O- Last 24 Hours up to 6 AM 10/02/18 06:00 Intake Total 1200 ml Output Total 2100 ml Balance -900 ml GME ATTESTATION GME ATTESTATION My faculty preceptor for this patient encounter was physically present during the encounter and was fully available. All aspects of the patient interview, examination, medical decision making process, and medical care plan development were reviewed and approved by the faculty preceptor. The faculty preceptor is aware and concurs with the plan as stated in the body of this note and will attest to such by his/her cosignature. KEYON GREEN DO Oct 02, 2018 10:28 NEMESIO GUEVARA DO Oct 02, 2018 22:08
[2018-10-02 12:00] VITALS: BP 123/69
[2018-10-02 16:00] VITALS: BP 128/68
[2018-10-02] MEDS: WARFARIN SOD 7.5 MG TAB PO SCH (17:48)
[2018-10-02 20:00] VITALS: BP 124/69
[2018-10-02] MEDS: SIMVASTATIN 40 MG TAB PO SCH (20:10)
[2018-10-02] MEDS: TERAZOSIN 5 MG CAP PO SCH (20:11)
[2018-10-02] MEDS: cefTRIAXone SOD 1 GM in D5W MINI-BAG PLUS 50 ML IV SCH (22:55)
[2018-10-02 23:59] VITALS: BP 115/55
[2018-10-03 04:00] VITALS: BP 160/93
[2018-10-03] MEDS: SLF 3 ML SYR IV SCH ×2 (05:13→14:00)
[2018-10-03 05:14] LABS: BASO % 0.3 % (0.0-1.0); EOS # 0.1 10^3/uL (0.0-0.50); EOS % 0.9 % (0.0-3.0); HEMATOCRIT 35.7 % (42.0-52.0); HEMOGLOBIN 11.3 g/dl (13.5-17.5); LYMPH # 1.7 10^3/uL (1.5-4.5); MEAN CORPUSCULAR HEMOGLOBIN 24.7 pg (27.0-33.0); MEAN CORPUSCULAR HGB CONC 31.7 g/dl (32.0-36.5); MEAN CORPUSCULAR VOLUME 77.9 fl (80.0-96.0); MONO # 0.9 10^3/uL (0.0-0.8); MONO % 8.9 % (0.0-5.0); NEUTROPHILS # 7.5 10^3/uL (1.8-7.7); NEUTROPHILS % 72.4 % (36.0-66.0); PLATELET COUNT, AUTOMATED 224 10^3/uL (150-450); RED BLOOD COUNT 4.58 10^6/uL (4.30-6.10); WHITE BLOOD COUNT 10.3 10^3/uL (4.0-10.0)
[2018-10-03 05:38] LABS: ALBUMIN 2.7 GM/DL (3.2-5.2); BILIRUBIN,TOTAL 0.3 MG/DL (0.2-1.0); CALCIUM LEVEL 8.5 MG/DL (8.8-10.2); CREATININE FOR GFR 1.35 MG/DL (0.70-1.30); GLOMERULAR FILTRATION RATE 55.8 (>49); POTASSIUM SERUM 3.3 MEQ/L (3.5-5.1); TOTAL PROTEIN 6.6 GM/DL (6.4-8.2)
[2018-10-03 05:41] LABS: INR 1.35; PROTHROMBIN TIME 16.9 SECONDS (12.1-14.4)
[2018-10-03] MEDS: HumaLOG INSULIN (NovoLOG) PER UNIT SC SCH ×2 (07:30→12:00)
[2018-10-03 08:00] VITALS: BP 104/59
[2018-10-03] MEDS ORDERED: POTASSIUM CHLORIDE 10 MEQ SR TABLET PO ONE (08:00)
[2018-10-03] MEDS ORDERED: AZITHROMYCIN 250 MG TAB PO SCH (09:00)
--- NOTE | 2018-10-03 09:11 | REP ---
Right upper quadrant sonography: History: Elevated liver function studies. Comparison study: No comparison sonography. Findings: Scanning through the right upper quadrant of the abdomen demonstrates a normal sized, thin-walled gallbladder without evidence of stone or polyp. Common bile duct is normal measuring 0.4 cm in greatest diameter. There is evidence of mild fatty infiltration of the liver. No focal liver lesion is seen. Liver size is normal. No pancreatic abnormality is observed. No right renal abnormality is seen. There is no evidence of ascites. The right kidney measures 10.8 x 6.3 x 4.4 cm. Impression: Mild diffuse fatty infiltration of the liver change. Otherwise negative right upper quadrant sonography. Electronically Signed by Jet Alvarez MD 10/03/2018 09:02 A
[2018-10-03] MEDS: VITAMIN D 1,000 INTERNATIONAL UNITS TABLET PO SCH (09:23)
[2018-10-03] MEDS: FINASTERIDE 5 MG TAB PO SCH (09:23)
[2018-10-03] MEDS: SPIRONOLACTONE 25 MG TAB PO SCH (09:24)
[2018-10-03] MEDS: buPROPion **SR TABLET** (ZYBAN) 150MG PO SCH (09:24)
[2018-10-03] MEDS: FERROUS GLUCONATE 324 MG TAB PO SCH (09:24)
[2018-10-03] MEDS: OMEPRAZOLE 20 MG CAP PO SCH (09:24)
[2018-10-03] MEDS: predniSONE 20 MG TAB PO SCH (09:24)
[2018-10-03] MEDS: SERTRALINE 100 MG TAB PO SCH (09:24)
[2018-10-03 09:25] VITALS: BP 104/59
[2018-10-03] MEDS: METOPROLOL TART 12.5 MG PER 1/2 TAB PO SCH (09:25)
[2018-10-03] MEDS: FUROSEMIDE 80 MG TAB PO SCH (09:25)
--- NOTE | 2018-10-03 10:58 | IPNPDOC ---
Text Note Date of Service The patient was seen on 10/03/18. NOTE CC: Shortness of breath Patient is a 68-year-old male with a past medical history of idiopathic pulmonary hemosiderosis, diastolic heart failure, diabetes, hypertension, hyperl ipidemia, sleep apnea on CPAP at home, atrial fibrillation, currently on Coumadin, iron deficiency anemia, GERD who presented with shortness of breath. Patient had multiple episodes of hemoptysis prior to presentation SUBJECTIVE: Patient was examined at bed side. OBJECTIVE: PHYSICAL EXAMINATION: GENERAL APPEARANCE: Alert, pleasant older gentleman, resting comfortably in bed LUNGS: Clear to auscultation bilaterally. HEART: Normal S1, S2. Irregularly irregular. , No murmurs, rubs or gallops ABDOMEN: Soft. Bowel sounds are present. Obese abdomen MSK: Mild lower extremity edema. LABORATORY DATA: Please see below. IMAGING: CT angio taken on 09/29 2018: 1. No evidence for pulmonary embolus. 2. Diffuse bilateral ground-glass opacities similar to prior examination with associated mild adenopathy. Differential diagnosis includes but is not limited to various interstitial pneumonias, sarcoidosis, pulmonary edema, alveolar proteinosis and early CHF. 3. Pulmonary consultation is recommended. Chest x-ray taken on 09/29/18 1. Cardiomegaly and chronic interstitial disease/fibrosis. 2. Patchy superimposed infiltrates cannot be excluded Echo 11/08/17 1.Very mild concentric left ventricle hypertrophy. Normal left ventricle (LV) wall motion and wall thickening. Normal LV systolic function. Left ventricular ejection fraction (LVEF) 65%-70% by visual estimate. Unable to adequately assess LV diastolic function in the setting of atrial fibrillation. 2. Mild-moderate left atrial dilatation. 3. Suggestive of moderate elevation of pulmonary artery systolic pressure (44 mmHg). 4. Mild aortic valve sclerosis. 5. Mild mitral annular calcification. Trace mitral regurgitation. MICRO: No Blood culture growth ASSESSMENT AND PLAN: Acute respiratory failure secondary to decompensated CHF. 2/2 to history of idiopathic pulmonary hemosiderosis - PO lasix -He reports improved breathing, denies SOB -Currently on room air, with improved oxygen saturation -pulmonology consulted Elevated liver enzymes -AST 61, ALT 101 -Patient denies alcohol use -Denies any prior history of hepatitis infection -Lower ultrasound: Mild diffuse fatty infiltration of the liver change. Otherwise negative right upper quadrant sonography. Leukocytosis -Improving -Patient remains afebrile -No sources of Infection detected. Rehab -Not safe for discharge -Will need Outpatient rehab after discharge according to PT A. fib - patient had hemoptysis and INR was reversed per pulmonology recommendation. -Current INR is 1.35, improved from 1.22 from yesterday. Currently subtherapeutic -Denies any further hemoptysis Hypertension- continue home meds History of idiopathic pulmonary hemosiderosis -Started IV steroid therapy initially, Switched to PO prednisone on 10/02/18 Obstructive sleep apnea- -On CPAP at night Diabetes mellitus -Sliding-scale insulin Hyperlipidemia- continue statin Iron deficiency anemia -Will continue to follow . DVT prophylaxis- On MELODY/Compression. -On Warfarin VS,Fishbone, I+O VS, Fishbone, I+O Laboratory Tests 10/03/18 04:58 Red Blood Count 4.58, Mean Corpuscular Volume 77.9 L, Mean Corpuscular Hemoglobin 24.7 L, Mean Corpuscular Hemoglobin Concent 31.7 L, Red Cell Distribution Width 16.9 H, Neutrophils (%) (Auto) 72.4 H, Lymphocytes (%) (Auto) 16.0 L, Monocytes (%) (Auto) 8.9 H, Eosinophils (%) (Auto) 0.9, Basophils (%) (Auto) 0.3, Neutrophils # (Auto) 7.5, Lymphocytes # (Auto) 1.7, Monocytes # (Auto) 0.9 H, Eosinophils # (Auto) 0.1, Basophils # (Auto) 0.0, Calcium Level 8.5 L, Aspartate Amino Transf (AST/SGOT) 61 H, Alanine Aminotransferase (ALT/SGPT) 111 H, Alkaline Phosphatase 74, Total Bilirubin 0.3, Total Protein 6.6, Albumin 2.7 L Vital Signs Date Time Temp Pulse Resp B/P (MAP) Pulse Ox O2 Delivery O2 Flow Rate FiO2 10/03/18 04:00 96.2 60 18 160/93 (115) 97 NIPPV (BIPAP/CPAP) 10/01/18 12:00 3.0 I&O- Last 24 Hours up to 6 AM 10/03/18 06:00 Intake Total 705 ml Output Total 1625 ml Balance -920 ml GME ATTESTATION GME ATTESTATION My faculty preceptor for this patient encounter was physically present during the encounter and was fully available. All aspects of the patient interview, examination, medical decision making process, and medical care plan development were reviewed and approved by the faculty preceptor. The faculty preceptor is aware and concurs with the plan as stated in the body of this note and will attest to such by his/her cosignature. EKYON GREEN DO Oct 03, 2018 07:32
[2018-10-03] MEDS ORDERED: PRED10TA2 PO (11:31)
[2018-10-03 12:21] LABS: HEPATITIS B SURFACE ANTIGEN NEGATIVE (NEGATIVE)
[2018-10-03 12:49] LABS: HEPATITIS B CORE ANTIBODY IGM NEGATIVE (NEGATIVE); HEPATITIS C VIRUS ABY INDEX 0.1 INDEX (<0.8)
[2018-10-03 12:51] LABS: HEPATITIS A ANTIBODY IGM NEGATIVE (NEGATIVE)
--- NOTE | 2018-10-03 14:34 | DS.PDOC ---
Discharge Summary General Date of Admission Sep 29, 2018 at 20:46 Date of Discharge 10/03/18 Attending Physician: NEMESIO GUEVARA DO Specialist/Consultants Involve: Franklin Flowers Discharge Summary PCP: [facility] PROCEDURES PERFORMED DURING STAY: Echocardiogram ADMITTING DIAGNOSES: Shortness of breath Hemoptysis Leg swelling DISCHARGE DIAGNOSES: Acute hypoxic respiratory failure secondary to decompensated diastolic CHF Idiopathic pulmonary hemosiderosis Atrial fibrillation Diabetes Hypertension COMPLICATIONS/CHIEF COMPLAINT: Chf (Congestive Heart Failure). HISTORY OF PRESENT ILLNESS/ HOSPITAL COURSE: Patient is a 68-year-old male with a past medical history of idiopathic pulmonary hemosiderosis, diastolic heart failure, diabetes, hypertension, hyperlipidemia, sleep apnea on CPAP at home, atrial fibrillation, currently on Coumadin, iron deficiency anemia, GERD who presented with 3 days of shortness of breath and 2 episodes of hemoptysis prior to presentation. Upon arrival, his oxygen saturation was 73% on room air. He was placed on nasal cannula with improvement of a saturation of oxygen (SaO2) to 93%. EKG was done which showed atrial fibrillation. He was admitted for hypoxic respiratory failure secondary to decompensated CHF. Due to patient's abnormal CT and history of idiopathic pulmonary hemosiderosis, combined with hemoptysis. Pulmonology was consulted for management. Patient was admitted and diuresed appropriately, pulmonary recommended IV steroid therapy, later switched to by mouth steroid therapy for his idiopathic hemosiderosis. He was initially started on antibiotics for possible pneumonia, which was later discontinued. Patient tolerated diuresis, his oxygen was weaned down to room air, with appropriate oxygen saturation levels. He was evaluated by physical therapy prior discharge. Pulmonary signed off on patient and recommend follow-up with patient at the [place]. He was discharged in good spirits without any questions or concerns. His fluid status was well compressed stated at discharge, he was instructed to resume his home medication. DISCHARGE MEDICATIONS: Please see below. ALLERGIES: Please see below. PHYSICAL EXAMINATION ON DISCHARGE: GENERAL APPEARANCE: Alert, pleasant older gentleman, resting comfortably in bed LUNGS: Clear to auscultation bilaterally. HEART: Normal S1, S2. Irregularly irregular. , No murmurs, rubs or gallops ABDOMEN: Soft. Bowel sounds are present. Obese abdomen MSK: Mild lower extremity edema. LABORATORY DATA: Please see below. IMAGING: Chest x-ray 09/29/2018 Impression: 1. Cardiomegaly and chronic interstitial disease/fibrosis. 2. Patchy superimposed infiltrates cannot be excluded CT of the chest with angiography, 09/29/2018: Impression: 1. No evidence for pulmonary embolus. 2. Diffuse bilateral ground-glass opacities similar to prior examination with associated mild adenopathy. Differential diagnosis includes but is not limited to various interstitial pneumonias, sarcoidosis, pulmonary edema, alveolar proteinosis and early CHF. Chest Xray: 10/01/18: IMPRESSION: Discoid atelectatic pattern lingular segment left upper lobe. Diffuse interstitial pattern in the perihilar regions as before. No evidence of pleural effusion. Liver US: 10/03/18: Impression: Mild diffuse fatty infiltration of the liver change. Otherwise negative right upper quadrant sonography. Echocardiogram; 10/01/18 IMPRESSION: 1. Normal global left ventricular systolic function. There is probably mild concentric left ventricular hypertrophy. 2. Aortic valve sclerosis with trivial aortic stenosis, but no aortic regurgitation. 3. Mitral annulus calcification with mildly enlarged left atrium and trace mitral regurgitation. 4. Mild tricuspid regurgitation with probably moderate pulmonary hypertension. The right atrium appeared to be mildly enlarged. 5. Not mentioned above, a sigmoid appearance of the basal ventricular septum was noted, a benign finding. PROGNOSIS: Stable ACTIVITY: DIET: Low fat, low cholesterol diet DISCHARGE PLAN: To Home with follow up at the [place] DISPOSITION: Fair DISCHARGE INSTRUCTIONS: 1. Follow-up with PCP in pulmonary at the [place] 2. Adhere to medications as prescribed 3. Return to ED if patient develops hemoptysis, increasing work of breathing, chest pain or difficulty breathing ITEMS TO FOLLOWUP ON ON OUTPATIENT: 1. Idiopathic pulmonary hemosiderosis 2. Heart failure 3. Elevated liver enzymes DISCHARGE CONDITION:Stable TIME SPENT ON DISCHARGE: Greater than 30 minutes. Vital Signs/I&Os Vital Signs Date Time Temp Pulse Resp B/P (MAP) Pulse Ox O2 Delivery O2 Flow Rate FiO2 10/03/18 09:25 74 104/59 10/03/18 08:00 97.3 18 92 Room Air 10/01/18 12:00 3.0 I&O- Last 24 Hours up to 6 AM 10/03/18 06:00 Intake Total 705 ml Output Total 1625 ml Balance -920 ml Laboratory Data Labs 24H Laboratory Tests 2 10/02/18 17:53: Bedside Glucose (Misc Panel) 195H 10/02/18 19:59: Bedside Glucose (Misc Panel) 154H 10/03/18 04:58: Immature Granulocyte % (Auto) 1.5, White Blood Count 10.3H, Red Blood Count 4.58, Hemoglobin 11.3L, Hematocrit 35.7L, Mean Corpuscular Volume 77.9L, Mean Corpuscular Hemoglobin 24.7L, Mean Corpuscular Hemoglobin Concent 31.7L, Red Cell Distribution Width 16.9H, Platelet Count 224, Neutrophils (%) (Auto) 72.4H, Lymphocytes (%) (Auto) 16.0L, Monocytes (%) (Auto) 8.9H, Eosinophils (%) (Auto) 0.9, Basophils (%) (Auto) 0.3, Neutrophils # (Auto) 7.5, Lymphocytes # (Auto) 1.7, Monocytes # (Auto) 0.9H, Eosinophils # (Auto) 0.1, Basophils # (Auto) 0.0, Nucleated Red Blood Cells % (auto) 0.0, Prothrombin Time 16.9H, Prothromb Time I nternational Ratio 1.35, Anion Gap 8, Glomerular Filtration Rate 55.8, Blood Urea Nitrogen 42H, Creatinine 1.35H, Sodium Level 142, Potassium Level 3.3L, Chloride Level 106, Carbon Dioxide Level 28, Calcium Level 8.5L, Aspartate Amino Transf (AST/SGOT) 61H, Alanine Aminotransferase (ALT/SGPT) 111H, Alkaline Phosphatase 74, Total Bilirubin 0.3, Total Protein 6.6, Albumin 2.7L, Albumin/Globulin Ratio 0.69L 10/03/18 11:40: Bedside Glucose (Misc Panel) 241H CBC/BMP Laboratory Tests 10/03/18 04:58 Red Blood Count 4.58, Mean Corpuscular Volume 77.9 L, Mean Corpuscular Hemoglobin 24.7 L, Mean Corpuscular Hemoglobin Concent 31.7 L, Red Cell Distribution Width 16.9 H, Neutrophils (%) (Auto) 72.4 H, Lymphocytes (%) (Auto) 16.0 L, Monocytes (%) (Auto) 8.9 H, Eosinophils (%) (Auto) 0.9, Basophils (%) (Auto) 0.3, Neutrophils # (Auto) 7.5, Lymphocytes # (Auto) 1.7, Monocytes # (Auto) 0.9 H, Eosinophils # (Auto) 0.1, Basophils # (Auto) 0.0, Calcium Level 8.5 L, Aspartate Amino Transf (AST/SGOT) 61 H, Alanine Aminotransferase (ALT/SGPT) 111 H, Alkaline Phosphatase 74, Total Bilirubin 0.3, Total Protein 6.6, Albumin 2.7 L FSBS Laboratory Tests Test 10/02/18 17:53 10/02/18 19:59 10/03/18 11:40 Range/Units Bedside Glucose (Misc Panel) 195 154 241 80-115 MG/DL Microbiology Microbiology 09/29/18 Blood Culture - Preliminary, Resulted No Growth after 72 hours. All specime... 09/29/18 Blood Culture - Preliminary, Resulted No Growth after 72 hours. All specime... 09/29/18 Respiratory Virus Panel (PCR) (JULIEN) - Final, Complete Discharge Medications Scheduled Acetaminophen (Acetaminophen) 325 Mg Tab, 975 MG PO TID, (Reported) Ascorbic Acid (Ascorbic Acid) 250 Mg Tab, 250 MG PO DAILY, (Reported) Bupropion Hcl (Bupropion HCl Sr) 150 Mg Tab, 150 MG PO DAILY, (Reported) Cholecalciferol (Vitamin D3) 1,000 Unit Tab, 1,000 UNIT PO DAILY, (Reported) Ferrous Gluconate (Ferrous Gluconate) 324 Mg Tab, 648 MG PO BID, (Reported) Finasteride (Finasteride) 5 Mg Tab, 5 MG PO DAILY, (Reported) Furosemide (Furosemide) 40 Mg Tab, 80 MG PO QAM, (Reported) Glipizide (Glipizide) 5 Mg Tab, 2.5 MG PO DAILY, (Reported) TAKES BEFORE BREAKFAST Metoprolol Tartrate (Metoprolol Tartrate) 25 Mg Tab, 12.5 MG PO BID, (Reported) Omeprazole (Omeprazole) 20 Mg Tab, 40 MG PO DAILY, (Reported) Potassium Chloride (Potassium Chloride ER) 10 Meq Tab, 20 MEQ PO BIDWM, (Reported) Prednisone (Prednisone) 10 Mg Tab, 10 MG PO TAPER Take 4 tabs daily x 3 days, then 3 tabs daily x 3 days, then 2 tabs daily x 3 days, then 1 tab daily x 3 days and stop Sertraline HCl (Sertraline HCl) 100 Mg Tab, 200 MG PO DAILY, (Reported) Simvastatin - High Dose (Simvastatin) 80 Mg Tab, 40 MG PO QHS, (Reported) Terazosin Hcl (Terazosin HCl) 10 Mg Cap, 10 MG PO QHS, (Reported) Warfarin Sod (Warfarin Sodium) 2.5 Mg Tab, 5 MG PO QHS, (Reported) Scheduled PRN Cyclobenzaprine HCl (Cyclobenzaprine HCl) 5 Mg Tab, 5 MG PO TID PRN for MUSCLE SPASMS, (Reported) Docusate Sodium (Docusate Sodium) 100 Mg Cap, 100 MG PO BID PRN for CONSTIPATION, (Reported) Triamcinolone Acet (Triamcinolone Acetonide 0.1% Crm) 1 Dose/80 Gm Cream, 1 DOSE TOP BID PRN for RASH/ITCHING, (Reported) Allergies Coded Allergies: Albuterol (Unverified Allergy, Unknown, 11/23/15) Amlodipine (Unverified Allergy, Unknown, 06/27/15) Atenolol (Unverified Allergy, Unknown, HEADACHE, 06/27/15) GME ATTESTATION GME ATTESTATION My faculty preceptor for this patient encounter was physically present during the encounter and was fully available. All aspects of the patient interview, examination, medical decision making process, and medical care plan development were reviewed and approved by the faculty preceptor. The faculty preceptor is aware and concurs with the plan as stated in the body of this note and will attest to such by his/her cosignature. KEYON GREEN DO Oct 03, 2018 14:34
== END 2018-10-03 16:05 | disposition home or self-care (01) | DRG 291 ==
LOC: M ED 16:08 → M ED INP 20:46 → M PCU 23:36
PROVIDERS: ADMIT Internal Medicine; ATTEND Internal Medicine
DX: I11.0 Hypertensive heart disease with heart failure (principal); J96.01 Acute respiratory failure with hypoxia; J84.03 Idiopathic pulmonary hemosiderosis; E87.3 Alkalosis; I50.33 Acute on chronic diastolic (congestive) heart failure; I48.2 Chronic atrial fibrillation; G47.33 Obstructive sleep apnea (adult) (pediatric); E11.9 Type 2 diabetes mellitus without complications; D64.9 Anemia, unspecified; F32.9 Major depressive disorder, single episode, unspecified; E78.00 Pure hypercholesterolemia, unspecified; E83.118 Other hemochromatosis; N40.0 Benign prostatic hyperplasia without lower urinary tract symptoms; E66.01 Morbid (severe) obesity due to excess calories; K59.00 Constipation, unspecified; K21.9 Gastro-esophageal reflux disease without esophagitis; Z89.022 Acquired absence of left finger(s); Z79.01 Long term (current) use of anticoagulants; Z79.84 Long term (current) use of oral hypoglycemic drugs; Z79.899 Other long term (current) drug therapy; Z88.8 Allergy status to other drugs, medicaments and biological substances; Z98.42 Cataract extraction status, left eye; Z87.891 Personal history of nicotine dependence

== ENCOUNTER 2019-04-21 17:09 | Inpatient (IN) | payer OTHER, MEDICARE ==
[~2019-04-21] VITALS: Ht 175.3 cm; Wt 119.7 kg
[~2019-04-21 17:09] MED LIST changes: +ACET1TAB55 PO; +ASCO250T PO; -ASPI1TAB PO; +ASPI81TA26 PO; +CYCL5TAB PO; +FERR32TA PO; +GLIP5TAB8 PO; +LISI40TA52 PO; -LISI40TAB PO; -LOSA-4 PO; +LOSA100T50 PO; +METO1TAB63 PO; -METO25TAB PO; +OMEP20TA PO; +PRED10TA2 PO; +TRIA0.1C60 TOP; -TRIA1CR TOP; +TRIA1CR80 TOP
[2019-04-21 18:13] LABS: BASO % 0.3 % (0.0-1.0); EOS # 0.4 10^3/uL (0.0-0.50); EOS % 6.3 % (0.0-3.0); HEMATOCRIT 35.5 % (42.0-52.0); HEMOGLOBIN 11.7 g/dl (13.5-17.5); LYMPH # 1.4 10^3/uL (1.5-4.5); LYMPH % 23.7 % (24.0-44.0); MEAN CORPUSCULAR HEMOGLOBIN 26.7 pg (27.0-33.0); MEAN CORPUSCULAR VOLUME 81.1 fl (80.0-96.0); MONO # 0.6 10^3/uL (0.0-0.8); MONO % 9.6 % (0.0-5.0); NEUTROPHILS # 3.5 10^3/uL (1.8-7.7); NEUTROPHILS % 59.6 % (36.0-66.0); PLATELET COUNT, AUTOMATED 217 10^3/uL (150-450); RED BLOOD COUNT 4.38 10^6/uL (4.30-6.10); WHITE BLOOD COUNT 5.8 10^3/uL (4.0-10.0)
[2019-04-21] MEDS ORDERED: CYCL5TAB PO (18:35)
[2019-04-21 18:50] LABS: CALCIUM LEVEL 9.1 MG/DL (8.8-10.2); CREATININE FOR GFR 1.72 MG/DL (0.70-1.30); GLOMERULAR FILTRATION RATE 42.2 (>49); MAGNESIUM LEVEL 2.2 MG/DL (1.8-2.4); POTASSIUM SERUM 2.6 MEQ/L (3.5-5.1); THYROID STIMULATING HORMONE 1.49 uIU/ML (0.358-3.740)
[2019-04-21] MEDS ORDERED: K-TA1TAB PO (18:57)
[2019-04-21] MEDS ORDERED: POTASSIUM CHLORIDE 10 MEQ SR TABLET PO ONE (19:00)
[2019-04-21] MEDS ORDERED: KCL 10MEQ/100ML SWI (KRUN) 10 MEQ in APPROPRIATE DILUENT 1 EA IV ONE (19:00)
[2019-04-21] MEDS ORDERED: POTA1TAB14 PO (19:45)
[2019-04-21] MEDS ORDERED: VITA250T4 PO (19:45)
[2019-04-21] MEDS ORDERED: ZOCO80TA PO (19:45)
[2019-04-21] MEDS ORDERED: METO25TA PO (20:10)
[2019-04-21] MEDS ORDERED: PHARMACY COMMENT (20:13)
--- NOTE | 2019-04-21 20:57 | HPEPDOC ---
General Date of Admission 04/21/19 Date of Service: Apr 21, 2019 Primary Care Physician: A Attending Physician: LENIN ROBERTO MD Chief Complaint The patient is a 68-year-old male admitted with a reason for visit of Abnormal Lab. Source: Patient, Family Exam Limitations: No limitations Timing/Duration: 24 hours Severity: Other (NA) Associated Symptoms: Other History of Present Illness Section 90. So, white male with past medical history of hypertension, diabetes mellitus, status post right chest tube placement, status post biopsy of right lung which was 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 fib and hypertension was called by [facility] as the found that his serum potassium to be low and he patient was referred to the hospital for admission. Patient denies any complaints. No chest pain, shortness of breath, nausea, vomiting, diarrhea, etc. on monitor in ED, patient was found to have a short episode of a retake and hence we were asked to admit patient for observation Home Medications Scheduled Ascorbic Acid (Vitamin C) 250 Mg Tablet, 250 MG PO DAILY, (Reported) Bupropion Hcl (Bupropion HCl Sr) 150 Mg Tab, 150 MG PO DAILY, (Reported) Cholecalciferol (Vitamin D3) (Vitamin D3) 1,000 Unit Tab, 1,000 UNIT PO DAILY, (Reported) Docusate Sodium (Docusate Sodium) 100 Mg Cap, 200 MG PO BID, (Reported) Ferrous Gluconate (Ferrous Gluconate) 324 Mg Tab, 648 MG PO BID, (Reported) Finasteride (Finasteride) 5 Mg Tab, 5 MG PO DAILY, (Reported) Furosemide (Furosemide) 40 Mg Tab, 80 MG PO DAILY, (Reported) Glipizide (Glipizide) 5 Mg Tab, 2.5 MG PO DAILY, (Reported) TAKES BEFORE BREAKFAST Metolazone (Metolazone) 2.5 Mg Tablet, 2.5 MG PO DAILY, (Reported) Metoprolol Tartrate (Metoprolol Tartrate) 25 Mg Tab, 12.5 MG PO BID, (Reported) Omeprazole (Omeprazole) 20 Mg Tab, 40 MG PO DAILY, (Reported) Potassium Chloride (Potassium Chloride) 20 Meq Tablet.er, 40 MEQ PO BID, (Reported) Sertraline HCl (Sertraline HCl) 100 Mg Tab, 200 MG PO DAILY, (Reported) Simvastatin (Zocor) 80 Mg Tablet, 40 MG PO QHS, (Reported) Terazosin Hcl (Terazosin HCl) 10 Mg Cap, 10 MG PO QHS, (Reported) Warfarin Sodium (Warfarin Sodium) 2.5 Mg Tab, 5 MG PO QHS, (Reported) Miscellaneous Medications [Pharmacy Comment] , (Reported) MEDICATIONS VERIFIED WITH [place] [facility] Allergies Coded Allergies: albuterol (Verified Allergy, Unknown, 04/21/19) amlodipine (Verified Allergy, Unknown, 04/21/19) atenolol (Verified Allergy, Unknown, 04/21/19) Past Medical History Medical History Diverticulitis, hypertension, A. fib, COPD, uses CPAP at night, intubated pulmonary hemorrhage in high-dose hernia, chronic anemia, PTSD, bipolar disorder Surgical History Status post chest tube placement. Biopsy of right lung, left middle finger amputation Family History Significant Family History: No pertinent family hx Social History * Smoker: Denies Alcohol: Denies Drugs: denies A-FIB/CHADSVASC A-FIB History Current/History of A-Fib/PAF?: Yes Current PO Anticoag Therapy: Yes Review of Systems Constitutional: Denies: Chills, Fever, Malaise, Night Sweats, Weakness, Fatigue, Weight Loss, Lethargy, Other Eyes: Denies: Pain, Vision change, Conjunctivae inflammation, Eyelid inflammation, Redness, Other ENT: Denies: Head Aches, Ear Pain, Dysphagia, Sinus Congestion, Post Nasal Drip, Sore Throat, Epistaxis, Other Symptoms Skin: Denies: Rash, Lesions, Jaundice, Bruising, Itching, Dry, Breakdown, Nail Changes, Other Pulmonary: Denies: Dyspnea, Cough, Pleuritic Chest Pain, Other Symptoms Cardiovascular: Denies: Chest Pain, Palpitations, Orthopnea, Paroxysmal Noc. Dyspnea, Edema, Lt Headedness, Other Symptoms Gastrointestinal: Denies: Nausea, Vomiting, Abdominal Pain, Diarrhea, Constipa tion, Melena, Hematochezia, Other Symptoms Genitourinary: Denies: Dysuria, Frequency, Incontinence, Hematuria, Retention, Other Symptoms Hematologic: Denies: Bruising, Bleeding Excessively, Petecchia, Purpura, Enlarged Lymph Nodes, Other Hematologic Endocrine: Denies: Polydipsia, Polyphagia, Polyuria, Heat Intolerance, Cold Intolerance, Other Endocrine Sx Musculoskeletal: Denies: Neck Pain, Back Pain, Shoulder Pain, Arm Pain, Hand Pain, Leg Pain, Foot Pain, Joint Pain, Muscle Pain, Spasms, Other Symptoms Neurological: Denies: Weakness, Numbness, Incoordination, Change in speech, Confusion, Seizures, Other Symptoms Psych: Denies: Mood Normal, Anxiety, Depression, Memory Issues, Thoughts of Self Harm, Anger, Thoughts of Harming Other, Other Psych Physical Examination General Exam: Positive: Alert Eye Exam: Positive: PERRLA, Conjunctiva & lids normal ENT Exam: Positive: Atraumatic Neck Exam: Positive: Supple, JVD Chest Exam: Positive: Clear to auscultation Heart Exam: Positive: Rate Normal, Normal S1, Normal S2 Abdomen Exam: Positive: Normal bowel sounds Extremity Exam: Positive: Normal pulses Skin Exam: Positive: Nl turgor and temperature Neuro Exam: Positive: Normal Gait, Strength at 5/5 X4 ext, Sensation Intact Psych Exam: Positive: Mental status NL, Mood NL, Oriented x 3 Vital Signs Vital Signs Date Time Temp Pulse Resp B/P (MAP) Pulse Ox O2 Delivery O2 Flow Rate FiO2 04/21/19 19:19 91 20 118/72 (87) 97 Room Air 04/21/19 17:09 98.0 Laboratory Data Labs 24H Laboratory Tests 2 04/21/19 17:49: Immature Granulocyte % (Auto) 0.5, White Blood Count 5.8, Red Blood Count 4.38, Hemoglobin 11.7L, Hematocrit 35.5L, Mean Corpuscular Volume 81.1, Mean Corpuscular Hemoglobin 26.7L, Mean Corpuscular Hemoglobin Concent 33.0, Red Cell Distribution Width 16.5H, Platelet Count 217, Neutrophils (%) (Auto) 59.6, Lymphocytes (%) (Auto) 23.7L, Monocytes (%) (Auto) 9.6H, Eosinophils (%) (Auto) 6.3H, Basophils (%) (Auto) 0.3, Neutrophils # (Auto) 3.5, Lymphocytes # (Auto) 1.4L, Monocytes # (Auto) 0.6, Eosinophils # (Auto) 0.4, Basophils # (Auto) 0.0, Nucleated Red Blood Cells % (auto) 0.0, Anion Gap 8, Glomerular Filtration Rate 42.2L, Blood Urea Nitrogen 38H, Creatinine 1.72H, Sodium Level 142, Potassium Level 2.6*L, Chloride Level 98, Carbon Dioxide Level 36H, Calcium Level 9.1, Magnesium Level 2.2, Thyroid Stimulating Hormone (TSH) 1.490 CBC/BMP Laboratory Tests 04/21/19 17:49 Red Blood Count 4.38, Mean Corpuscular Volume 81.1, Mean Corpuscular Hemoglobin 26.7 L, Mean Corpuscular Hemoglobin Concent 33.0, Red Cell Distribution Width 16.5 H, Neutrophils (%) (Auto) 59.6, Lymphocytes (%) (Auto) 23.7 L, Monocytes (%) (Auto) 9.6 H, Eosinophils (%) (Auto) 6.3 H, Basophils (%) (Auto) 0.3, Neutrophils # (Auto) 3.5, Lymphocytes # (Auto) 1.4 L, Monocytes # (Auto) 0.6, Eosinophils # (Auto) 0.4, Basophils # (Auto) 0.0, Calcium Level 9.1 Problems (1) Hypokalemia Status: Acute Problem Text: Admit to PCU for further observation Limited monitoring Patient received the potassium 50 mEq supplement in ED Repeat potassium level in a few hours A.m. labs Reason is within normal range The home meds DVT prophylaxis, patient already on Coumadin, but will start bilateral SCDs Diet carbohydrate consistent diet . Congestive blood sugar every before meals and at bedtime with coverage Activity out of bed as tolerated to bathroom (2) Nonsustained ventricular tachycardia Status: Acute Problem Text: Nonsustained V. tach on monitor And completely asymptomatic Continue monitoring on current medication Plan / VTE VTE Prophylaxis Ordered?: Yes LENIN ROBERTO MD Apr 21, 2019 20:57
[2019-04-21] MEDS: HumaLOG INSULIN (NovoLOG) PER UNIT SC SCH (21:00)
[2019-04-21] MEDS ORDERED: MOM 30ML SUSPENSION UDC PO PRN (21:00)
[2019-04-21] MEDS ORDERED: POTASSIUM CHLORIDE 10 MEQ SR TABLET PO SCH (21:00)
[2019-04-21] MEDS ORDERED: DEXTROSE 50% 50 ML SYRINGE IV PRN (21:00)
[2019-04-21] MEDS ORDERED: GLUCOSE 4 GM CHEW TABLET PO PRN (21:00)
[2019-04-21] MEDS ORDERED: ACETAMINOPHEN TAB 650MG DOSE (2X325MG) PO PRN (21:00)
[2019-04-21] MEDS: DOCUSATE SODIUM 100 MG CAP PO SCH ×2 (21:00→22:51)
[2019-04-21] MEDS ORDERED: DOCUSATE SODIUM 100 MG CAP PO SCH ×2 (21:00)
[2019-04-21] MEDS ORDERED: GLUCAGON FOR INJ 1 MG VIAL (J1610) SC PRN (21:00)
[2019-04-21] MEDS ORDERED: MAALOX 30 ML SUSP *UDC PO PRN (21:00)
[2019-04-21 22:00] VITALS: BP 123/77
[2019-04-21] MEDS ORDERED: SLF 3 ML SYR IV PRN (22:45)
[2019-04-21] MEDS: METOPROLOL TART 12.5 MG PER 1/2 TAB PO SCH (22:50)
[2019-04-21] MEDS: FERROUS GLUCONATE 324 MG TAB PO SCH (22:51)
[2019-04-21] MEDS: TERAZOSIN 5 MG CAP PO SCH (22:51)
[2019-04-21] MEDS: SIMVASTATIN 40 MG TAB PO SCH (22:51)
[2019-04-21 23:59] VITALS: BP 133/63
[2019-04-22] MEDS: NYSTATIN 100,000 UNITS/GM TOPICAL PWD 15 GM TOP SCH ×3 (00:07→22:21)
[2019-04-22 00:18] LABS: INR 2.18; PROTHROMBIN TIME 24.1 SECONDS (11.8-14.0)
--- NOTE | 2019-04-22 00:30 | ECGEPIP ---
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 Order Number: [id number] Reading MD: Flavio Moses Measurements Intervals [place] Rate: 72 P: [place]: -1 QRS: QRSD: 95 T: QT: 417 QTc: 457 Interpretive Statements ATRIAL FIBRILLATION WITH ABERRANT CONDUCTION OR VENTRICULAR PREMATURE COMPLEXES INFERIOR MYOCARDIAL INFARCTION, PROBABLY OLD Nonspecific T wave abnormality Prolonged QTc interval Previous tracing done 09-29-18 was atrial fibrillation Electronically Signed on 04-22-2019 0:30:24 EDT by Flavio Moses
[2019-04-22] MEDS: WARFARIN SOD 5 MG TAB PO SCH ×2 (00:51→17:26)
[2019-04-22 00:57] LABS: CALCIUM LEVEL 9.1 MG/DL (8.8-10.2); CREATININE FOR GFR 1.65 MG/DL (0.70-1.30); GLOMERULAR FILTRATION RATE 44.3 (>49); POTASSIUM SERUM 2.2 MEQ/L (3.5-5.1)
[2019-04-22] MEDS ORDERED: POTASSIUM CHLORIDE 10 MEQ SR TABLET PO ONE (01:15)
[2019-04-22 04:00] VITALS: BP 111/58
[2019-04-22] MEDS: SLF 3 ML SYR IV SCH ×3 (05:01→22:21)
[2019-04-22 06:10] LABS: MEAN CORPUSCULAR HEMOGLOBIN 25.8 pg (27.0-33.0); MEAN CORPUSCULAR HGB CONC 32.4 g/dl (32.0-36.5); MEAN CORPUSCULAR VOLUME 79.8 fl (80.0-96.0); PLATELET COUNT, AUTOMATED 184 10^3/uL (150-450); RED BLOOD COUNT 4.26 10^6/uL (4.30-6.10)
[2019-04-22 06:43] LABS: ALBUMIN 2.9 GM/DL (3.2-5.2); BILIRUBIN,TOTAL 0.4 MG/DL (0.2-1.0); CALCIUM LEVEL 8.7 MG/DL (8.8-10.2); CREATININE FOR GFR 1.55 MG/DL (0.70-1.30); GLOMERULAR FILTRATION RATE 47.6 (>49); MAGNESIUM LEVEL 2.1 MG/DL (1.8-2.4); POTASSIUM SERUM 2.3 MEQ/L (3.5-5.1); TOTAL PROTEIN 6.4 GM/DL (6.4-8.2)
[2019-04-22] MEDS: POTASSIUM CHLORIDE 10 MEQ SR TABLET PO SCH ×5 (07:32→17:26)
[2019-04-22] MEDS: KCL 10MEQ/100ML SWI (KRUN) 10 MEQ in APPROPRIATE DILUENT 1 EA IV SCH ×6 (07:34→15:45)
[2019-04-22] MEDS: glipiZIDE *2.5MG* 1/2 TABLET PO SCH (07:35)
[2019-04-22 08:00] VITALS: BP 93/60
--- NOTE | 2019-04-22 08:03 | IPNPDOC ---
Date Seen The patient was seen on 04/22/19. Progress Note SUBJECTIVE:denies any muscle weakness, abd pain, cramps. tele: nsvt on kdur. OBJECTIVE: Physical Examination Vitals: pls see below General Exam: Positive: Alert Eye Exam: Positive: PERRLA, Conjunctiva & lids normal ENT Exam: Positive: Atraumatic Neck Exam: Positive: Supple, JVD Chest Exam: Positive: Clear to auscultation Heart Exam: Positive: Rate Normal, Normal S1, Normal S2 Abdomen Exam: Positive: Normal bowel sounds Extremity Exam: Positive: Normal pulses Skin Exam: Positive: Nl turgor and temperature Neuro Exam: Positive: Normal Gait, Strength at 5/5 X4 ext, Sensation Intact Psych Exam: Positive: Mental status NL, Mood NL, Oriented x 3 LABORATORY DATA, IMAGING DATA, MICROBIOLOGY: PLS SEE BELOW ASSESSMENT AND PLAN: 68 y/o white male with past medical history of hypertension, diabetes mellitus, status post right chest tube placement, status post biopsy of right lung which was 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 fib and hypertension was called by [facility] as the found that his serum potassium to be low and he patient was referred to the hospital for admission. Patient denies any complaints. No chest pain, shortness of breath, nausea, vomiting, diarrhea, etc. on monitor in ED, patient was found to have a short episode of a retake and hence we were asked to admit patient for observation. Hypokalemia Admitted to PCU for further observation Telemetry : NSVT most likely due to low potassium Patient received the potassium 50 mEq supplement in ED s/p kdur 40 meq po x 3doses 1hr apart, and krun 10 meq iv x 2 runs repeat mp q6hrs until normalized Nonsustained ventricular tachycardia due to low potassium mg is wnl And completely asymptomatic Continue monitoring on current medication Diverticulitis no acute c/o abd pain,fever, chills, n/v hypertension, controlled resumed home meds A. fib, rate controlled resumed home meds COPD, uses CPAP at night, not in acute exacerbation prn nebs chronic anemia, no acute indication for rbc transfusion stable H&H PTSD, bipolar disorder resumed home meds obesity bmi 37 complicating care dvt prophylaxis: ac for AFib disposition: await normalization of K+ and hse from physical therapy. VS, I&O, 24H, Fishbone Vital Signs/I&O Vital Signs Date Time Temp Pulse Resp B/P (MAP) Pulse Ox O2 Delivery O2 Flow Rate FiO2 04/22/19 04:00 97.3 86 18 111/58 (75) 94 04/21/19 19:19 Room Air I&O- Last 24 Hours up to 6 AM 04/22/19 05:59 Intake Total 120 ml Output Total 150 ml Balance -30 ml Laboratory Data 24H LABS Laboratory Tests 2 04/21/19 17:49: Immature Granulocyte % (Auto) 0.5, White Blood Count 5.8, Red Blood Count 4.38, Hemoglobin 11.7L, Hematocrit 35.5L, Mean Corpuscular Volume 81.1, Mean Corpuscular Hemoglobin 26.7L, Mean Corpuscular Hemoglobin Concent 33.0, Red Cell Distribution Width 16.5H, Platelet Count 217, Neutrophils (%) (Auto) 59.6, Lymphocytes (%) (Auto) 23.7L, Monocytes (%) (Auto) 9.6H, Eosinophils (%) (Auto) 6.3H, Basophils (%) (Auto) 0.3, Neutrophils # (Auto) 3.5, Lymphocytes # (Auto) 1.4L, Monocytes # (Auto) 0.6, Eosinophils # (Auto) 0.4, Basophils # (Auto) 0.0, Nucleated Red Blood Cells % (auto) 0.0, Anion Gap 8, Glomerular Filtration Rate 42.2L, Blood Urea Nitrogen 38H, Creatinine 1.72H, Sodium Level 142, Potassium Level 2.6*L, Chloride Level 98, Carbon Dioxide Level 36H, Calcium Level 9.1, Magnesium Level 2.2, Thyroid Stimulating Hormone (TSH) 1.490 04/21/19 17:50: POC Glucose (Misc Panel) 122H, POC Sodium (Misc Panel) 141, POC Potassium (Misc Panel) 2.2*L, POC Chloride (Misc Panel) 92L, POC Total CO2 (Misc Panel) 36.0H, POC Blood Urea Nitrogen (Misc Panel 37H, POC Ionized Calcium (Misc Panel) 4.3L, POC Creatinine (Misc Panel) 1.7H, POC Hematocrit (Misc Panel) 34.0L 04/21/19 21:10: Bedside Glucose (Misc Panel) 114 04/21/19 23:56: Anion Gap 8, Glomerular Filtration Rate 44.3L, Blood Urea Nitrogen 35H, Creatinine 1.65H, Sodium Level 142, Potassium Level 2.2*L, Chloride Level 98, Carbon Dioxide Level 36H, Calcium Level 9.1, Prothrombin Time 24.1H, Prothromb Time International Ratio 2.18 04/22/19 05:36: Nucleated Red Blood Cells % (auto) 0.0, Anion Gap 6L, Glomerular Filtration Rate 47.6L, Blood Urea Nitrogen 34H, Creatinine 1.55H, Sodium Level 142, Potassium Level 2.3*L, Chloride Level 100, Carbon Dioxide Level 36H, Calcium Level 8.7L, Aspartate Amino Transf (AST/SGOT) 11, Alanine Aminotransferase (ALT/SGPT) 15, Alkaline Phosphatase 62, Total Bilirubin 0.4, Total Protein 6.4, Albumin 2.9L, Magnesium Level 2.1, Albumin/Globulin Ratio 0.83L CBC/BMP Laboratory Tests 04/21/19 17:49 Red Blood Count 4.38, Mean Corpuscular Volume 81.1, Mean Corpuscular Hemoglobin 26.7 L, Mean Corpuscular Hemoglobin Concent 33.0, Red Cell Distribution Width 16.5 H, Neutrophils (%) (Auto) 59.6, Lymphocytes (%) (Auto) 23.7 L, Monocytes (%) (Auto) 9.6 H, Eosinophils (%) (Auto) 6.3 H, Basophils (%) (Auto) 0.3, Neutrophils # (Auto) 3.5, Lymphocytes # (Auto) 1.4 L, Monocytes # (Auto) 0.6, Eosinophils # (Auto) 0.4, Basophils # (Auto) 0.0, Calcium Level 9.1 04/21/19 23:56 Calcium Level 9.1 04/22/19 05:36 Red Blood Count 4.26 L, Mean Corpuscular Volume 79.8 L, Mean Corpuscular Hemoglobin 25.8 L, Mean Corpuscular Hemoglobin Concent 32.4, Red Cell Distribution Width 16.6 H, Calcium Level 8.7 L, Aspartate Amino Transf (AST/SGOT) 11, Alanine Aminotransferase (ALT/SGPT) 15, Alkaline Phosphatase 62, Total Bilirubin 0.4, Total Protein 6.4, Albumin 2.9 L AILYN SALMERON MD Apr 22, 2019 08:03
[2019-04-22] MEDS ORDERED: POTA1TAB14 PO (08:10)
--- NOTE | 2019-04-22 08:33 | DS.PDOC ---
Discharge Summary General Date of Admission Apr 21, 2019 at 17:10 Date of Discharge APRIL 22, 2019 Discharge Summary DISCHARGE DIAGNOSES: Hypokalemia CKD 3 Diastolic CHF, preserved EF Idiopathic Pulmonary Hemosiderosis Moderate Pulmonary hypertension Obesity Atrial Fibrillation on warfarin DM 2 BPH HTN Bipolar Disorder PTSD DISCHARGE MEDICATIONS: PLS SEE BELOW DISCHARGE INSTRUCTIONS: FU APPT WITH PCP WITHIN 5 DAYS OF HOSPITAL DISCHARGE PCP TO RECHECK POTASSIUM LEVEL WITHIN 7DAYS OF HOSPITAL DISCHARGE HISTORY OF PRESENTING ILLNESS: 68 y/o white male with past medical history of hypertension, diabetes mellitus, status post right chest tube placement, status post biopsy of right lung which was 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 fib , CKD3, CHF, and hypertension was called by [facility] as the found that his serum potassium to be low and he patient was referred to the hospital for admission. Patient denies any complaints. No chest pain, shortness of breath, nausea, vomiting, diarrhea, etc. on monitor in ED, patient was found to have a short episode of a retake and hence we were asked to admit patient for observation. Hypokalemia Admitted to PCU for further observation Telemetry : NSVT most likely due to low potassium Patient received the potassium 50 mEq supplement in ED s/p kdur 40 meq po x 3doses 1hr apart, and krun 10 meq iv x 2 runs repeat mp q6hrs until normalized Nonsustained ventricular tachycardia due to low potassium mg is wnl And completely asymptomatic Continue monitoring on current medication DM consistent carbs diet a1c sliding scale with coverage resumed home meds. Diverticulitis no acute c/o abd pain,fever, chills, n/v hypertension, controlled resumed home meds BPH resumed home meds A. fib, rate controlled resumed home meds COPD, uses CPAP at night, not in acute exacerbation prn nebs chronic anemia, no acute indication for rbc transfusion stable H&H Idiopathic pulmonary hemosiderosis with moderate pulmonary hypertension complicating care PTSD, bipolar disorder resumed home meds obesity bmi 37 complicating care dvt prophylaxis: on warfarin Discharge Physical Examination Vitals: pls see below General Exam: Positive: Alert Eye Exam: Positive: PERRLA, Conjunctiva & lids normal ENT Exam: Positive: Atraumatic Neck Exam: Positive: Supple, JVD Chest Exam: Positive: Clear to auscultation Heart Exam: Positive: Rate Normal, Normal S1, Normal S2 Abdomen Exam: Positive: Normal bowel sounds Extremity Exam: Positive: Normal pulses Skin Exam: Positive: Nl turgor and temperature Neuro Exam: Positive: Normal Gait, Strength at 5/5 X4 ext, Sensation Intact Psych Exam: Positive: Mental status NL, Mood NL, Oriented x 3 LABORATORY DATA, IMAGING DATA, MICROBIOLOGY: PLS SEE BELOW ECHOCARDIOGRAM 1. Normal global left ventricular systolic function. There is probably mild concentric left ventricular hypertrophy. 2. Aortic valve sclerosis with trivial aortic stenosis, but no aortic regurgitation. 3. Mitral annulus calcification with mildly enlarged left atrium and trace mitral regurgitation. 4. Mild tricuspid regurgitation with probably moderate pulmonary hypertension. The right atrium appeared to be mildly enlarged. 5. Not mentioned above, a sigmoid appearance of the basal ventricular septum was noted, a benign finding. DD: TRISTAN FOREMAN MD 10/01/182103 DT: RYLIE 10/01/182155 DS: CECY 10/22/1839 <Electronically signed by TRISTAN FOREMAN MD> 10/22/1839 TIME SPENT ON HOSPITAL DISCHARGE: 32 MINUTES Vital Signs/I&Os Vital Signs Date Time Temp Pulse Resp B/P (MAP) Pulse Ox O2 Delivery O2 Flow Rate FiO2 04/22/19 04:00 97.3 86 18 111/58 (75) 94 04/21/19 19:19 Room Air I&O- Last 24 Hours up to 6 AM 04/22/19 05:59 Intake Total 120 ml Output Total 150 ml Balance -30 ml Laboratory Data Labs 24H Laboratory Tests 2 04/21/19 17:49: Immature Granulocyte % (Auto) 0.5, White Blood Count 5.8, Red Blood Count 4.38, Hemoglobin 11.7L, Hematocrit 35.5L, Mean Corpuscular Volume 81.1, Mean Corpuscular Hemoglobin 26.7L, Mean Corpuscular Hemoglobin Concent 33.0, Red Cell Distribution Width 16.5H, Platelet Count 217, Neutrophils (%) (Auto) 59.6, Lymphocytes (%) (Auto) 23.7L, Monocytes (%) (Auto) 9.6H, Eosinophils (%) (Auto) 6.3H, Basophils (%) (Auto) 0.3, Neutrophils # (Auto) 3.5, Lymphocytes # (Auto) 1.4L, Monocytes # (Auto) 0.6, Eosinophils # (Auto) 0.4, Basophils # (Auto) 0.0, Nucleated Red Blood Cells % (auto) 0.0, Anion Gap 8, Glomerular Filtration Rate 42.2L, Blood Urea Nitrogen 38H, Creatinine 1.72H, Sodium Level 142, Potassium Level 2.6*L, Chloride Level 98, Carbon Dioxide Level 36H, Calcium Level 9.1, M agnesium Level 2.2, Thyroid Stimulating Hormone (TSH) 1.490 04/21/19 17:50: POC Glucose (Misc Panel) 122H, POC Sodium (Misc Panel) 141, POC Potassium (Misc Panel) 2.2*L, POC Chloride (Misc Panel) 92L, POC Total CO2 (Misc Panel) 36.0H, POC Blood Urea Nitrogen (Misc Panel 37H, POC Ionized Calcium (Misc Panel) 4.3L, POC Creatinine (Misc Panel) 1.7H, POC Hematocrit (Misc Panel) 34.0L 04/21/19 21:10: Bedside Glucose (Misc Panel) 114 04/21/19 23:56: Anion Gap 8, Glomerular Filtration Rate 44.3L, Blood Urea Nitrogen 35H, Creatinine 1.65H, Sodium Level 142, Potassium Level 2.2*L, Chloride Level 98, Carbon Dioxide Level 36H, Calcium Level 9.1, Prothrombin Time 24.1H, Prothromb Time International Ratio 2.18 04/22/19 05:36: Nucleated Red Blood Cells % (auto) 0.0, Anion Gap 6L, Glomerular Filtration Rate 47.6L, Blood Urea Nitrogen 34H, Creatinine 1.55H, Sodium Level 142, Potassium Level 2.3*L, Chloride Level 100, Carbon Dioxide Level 36H, Calcium Level 8.7L, Aspartate Amino Transf (AST/SGOT) 11, Alanine Aminotransferase (ALT/SGPT) 15, Alkaline Phosphatase 62, Total Bilirubin 0.4, Total Protein 6.4, Albumin 2.9L, Magnesium Level 2.1, Albumin/Globulin Ratio 0.83L CBC/BMP Laboratory Tests 04/21/19 17:49 Red Blood Count 4.38, Mean Corpuscular Volume 81.1, Mean Corpuscular Hemoglobin 26.7 L, Mean Corpuscular Hemoglobin Concent 33.0, Red Cell Distribution Width 16.5 H, Neutrophils (%) (Auto) 59.6, Lymphocytes (%) (Auto) 23.7 L, Monocytes (%) (Auto) 9.6 H, Eosinophils (%) (Auto) 6.3 H, Basophils (%) (Auto) 0.3, Neutrophils # (Auto) 3.5, Lymphocytes # (Auto) 1.4 L, Monocytes # (Auto) 0.6, Eosinophils # (Auto) 0.4, Basophils # (Auto) 0.0, Calcium Level 9.1 04/21/19 23:56 Calcium Level 9.1 04/22/19 05:36 Red Blood Count 4.26 L, Mean Corpuscular Volume 79.8 L, Mean Corpuscular Hemoglobin 25.8 L, Mean Corpuscular Hemoglobin Concent 32.4, Red Cell Distribution Width 16.6 H, Calcium Level 8.7 L, Aspartate Amino Transf (AST/SGOT) 11, Alanine Aminotransferase (ALT/SGPT) 15, Alkaline Phosphatase 62, Total Bilirubin 0.4, Total Protein 6.4, Albumin 2.9 L FSBS Laboratory Tests Test 04/21/19 21:10 Range/Units Bedside Glucose (Misc Panel) 114 80-115 MG/DL Discharge Medications Scheduled Ascorbic Acid (Vitamin C) 250 Mg Tablet, 250 MG PO DAILY, (Reported) Bupropion Hcl (Bupropion HCl Sr) 150 Mg Tab, 150 MG PO DAILY, (Reported) Cholecalciferol (Vitamin D3) (Vitamin D3) 1,000 Unit Tab, 1,000 UNIT PO DAILY, (Reported) Docusate Sodium (Docusate Sodium) 100 Mg Cap, 200 MG PO BID, (Reported) Ferrous Gluconate (Ferrous Gluconate) 324 Mg Tab, 648 MG PO BID, (Reported) Finasteride (Finasteride) 5 Mg Tab, 5 MG PO DAILY, (Reported) Furosemide (Furosemide) 40 Mg Tab, 80 MG PO DAILY, (Reported) Glipizide (Glipizide) 5 Mg Tab, 2.5 MG PO DAILY, (Reported) TAKES BEFORE BREAKFAST Metolazone (Metolazone) 2.5 Mg Tablet, 2.5 MG PO DAILY, (Reported) Metoprolol Tartrate (Metoprolol Tartrate) 25 Mg Tab, 12.5 MG PO BID, (Reported) Omeprazole (Omeprazole) 20 Mg Tab, 40 MG PO DAILY, (Reported) Potassium Chloride (Potassium Chloride) 20 Meq Tablet.er, 40 MEQ PO BID, (Reported) Sertraline HCl (Sertraline HCl) 100 Mg Tab, 200 MG PO DAILY, (Reported) Simvastatin (Zocor) 80 Mg Tablet, 40 MG PO QHS, (Reported) Terazosin Hcl (Terazosin HCl) 10 Mg Cap, 10 MG PO QHS, (Reported) Warfarin Sodium (Warfarin Sodium) 2.5 Mg Tab, 5 MG PO QHS, (Reported) Scheduled PRN Potassium Chloride (Potassium Chloride) 20 Meq Tablet.er, 40 MEQ PO BID PRN for 0 PHARMACY TO GIVE 40 MEQ TABS KDUR 40 MEQ PO BID SUPPLY 28 TABS Miscellaneous Medications [Pharmacy Comment] , (Reported) MEDICATIONS VERIFIED WITH [place] [facility] Allergies Coded Allergies: albuterol (Verified Allergy, Unknown, 04/21/19) amlodipine (Verified Allergy, Unknown, 04/21/19) atenolol (Verified Allergy, Unknown, 04/21/19) AILYN SALMERON MD Apr 22, 2019 08:11
[2019-04-22] MEDS: HumaLOG INSULIN (NovoLOG) PER UNIT SC SCH ×4 (08:47→21:00)
[2019-04-22] MEDS: METOPROLOL TART 12.5 MG PER 1/2 TAB PO SCH ×2 (08:49→21:00)
[2019-04-22] MEDS: VITAMIN D 1,000 INTERNATIONAL UNITS TABLET PO SCH (08:49)
[2019-04-22] MEDS: OMEPRAZOLE 20 MG CAP PO SCH (08:49)
[2019-04-22] MEDS: SERTRALINE 100 MG TAB PO SCH (08:49)
[2019-04-22] MEDS: FERROUS GLUCONATE 324 MG TAB PO SCH ×2 (08:49→21:15)
[2019-04-22] MEDS: FINASTERIDE 5 MG TAB PO SCH (08:49)
[2019-04-22] MEDS: buPROPion **SR TABLET** (ZYBAN) 150MG PO SCH (08:52)
[2019-04-22] MEDS ORDERED: metOLazone 2.5 MG TAB PO SCH (09:00)
[2019-04-22] MEDS ORDERED: FUROSEMIDE 80 MG TAB PO SCH (09:00)
[2019-04-22 12:00] VITALS: BP 96/60
[2019-04-22 16:00] VITALS: BP 99/61
[2019-04-22] MEDS ORDERED: CALCIUM GLUCONATE 1,000 MG in D5W MINI-BAG PLUS 100 ML IV ONE (17:00)
[2019-04-22] MEDS ORDERED: KCL 40MEQ in NS 1000ML 1,000 ML IV SCH (18:00)
[2019-04-22 20:00] VITALS: BP 107/61
[2019-04-22] MEDS ORDERED: POTASSIUM CHLORIDE 10 MEQ SR TABLET PO SCH (21:00)
[2019-04-22] MEDS: DOCUSATE SODIUM 100 MG CAP PO SCH (21:15)
[2019-04-22] MEDS: TERAZOSIN 5 MG CAP PO SCH (21:16)
[2019-04-22] MEDS: SIMVASTATIN 40 MG TAB PO SCH (21:16)
[2019-04-22 23:30] LABS: CALCIUM LEVEL 8.8 MG/DL (8.8-10.2); CREATININE FOR GFR 1.55 MG/DL (0.70-1.30); GLOMERULAR FILTRATION RATE 47.6 (>49); POTASSIUM SERUM 3.2 MEQ/L (3.5-5.1)
[2019-04-23] VITALS (7 sets, daily range): BP systolic 100–133; BP diastolic 57–65
[2019-04-23 05:52] LABS: CALCIUM LEVEL 8.4 MG/DL (8.8-10.2); CREATININE FOR GFR 1.59 MG/DL (0.70-1.30); GLOMERULAR FILTRATION RATE 46.2 (>49); POTASSIUM SERUM 3.1 MEQ/L (3.5-5.1)
[2019-04-23] MEDS ORDERED: POTA1TAB14 PO ×2 (06:02→06:05)
[2019-04-23] MEDS: POTASSIUM CHLORIDE 10 MEQ SR TABLET PO SCH ×3 (06:16→09:08)
[2019-04-23] MEDS: SLF 3 ML SYR IV SCH ×3 (06:16→21:04)
[2019-04-23] MEDS ORDERED: KCL 40MEQ in NS 1000ML 1,000 ML IV SCH (06:30)
[2019-04-23] MEDS: HumaLOG INSULIN (NovoLOG) PER UNIT SC SCH ×4 (07:43→20:37)
[2019-04-23] MEDS: glipiZIDE *2.5MG* 1/2 TABLET PO SCH (07:43)
[2019-04-23] MEDS ORDERED: POTASSIUM CHLORIDE 10 MEQ SR TABLET PO SCH (09:00)
[2019-04-23] MEDS ORDERED: SPIRONOLACTONE 50 MG TAB PO SCH (09:00)
[2019-04-23] MEDS: METOPROLOL TART 12.5 MG PER 1/2 TAB PO SCH ×2 (09:00→20:36)
[2019-04-23] MEDS: FERROUS GLUCONATE 324 MG TAB PO SCH ×2 (09:08→21:04)
[2019-04-23] MEDS: DOCUSATE SODIUM 100 MG CAP PO SCH ×2 (09:08→21:03)
[2019-04-23] MEDS: FINASTERIDE 5 MG TAB PO SCH (09:09)
[2019-04-23] MEDS: OMEPRAZOLE 20 MG CAP PO SCH (09:10)
[2019-04-23] MEDS: VITAMIN D 1,000 INTERNATIONAL UNITS TABLET PO SCH (09:10)
[2019-04-23] MEDS: buPROPion **SR TABLET** (ZYBAN) 150MG PO SCH (09:10)
[2019-04-23] MEDS: NYSTATIN 100,000 UNITS/GM TOPICAL PWD 15 GM TOP SCH ×2 (09:11→21:03)
[2019-04-23] MEDS: SERTRALINE 100 MG TAB PO SCH (09:11)
[2019-04-23 10:13] LABS: IONIZED CALCIUM 4.4 MG/DL (4.5-5.3)
[2019-04-23 10:39] LABS: MAGNESIUM LEVEL 2.1 MG/DL (1.8-2.4); POTASSIUM SERUM 3.5 MEQ/L (3.5-5.1)
[2019-04-23 10:52] LABS: INR 2.67; PROTHROMBIN TIME 28.3 SECONDS (11.8-14.0)
[2019-04-23] MEDS ORDERED: ALDA50TA2 PO (11:14)
[2019-04-23] MEDS: CALCIUM/VITAMIN D 500 MG TAB PO SCH (12:00)
[2019-04-23 14:31] LABS: CALCIUM LEVEL 8.6 MG/DL (8.8-10.2); CREATININE FOR GFR 1.42 MG/DL (0.70-1.30); GLOMERULAR FILTRATION RATE 52.6 (>49); POTASSIUM SERUM 3.7 MEQ/L (3.5-5.1)
[2019-04-23] MEDS: WARFARIN SOD 5 MG TAB PO SCH (18:04)
--- NOTE | 2019-04-23 19:28 | CR ---
DATE OF CONSULTATION: 04/23/2019 REASON FOR CONSULTATION: Hypokalemia. CONSULTING PHYSICIAN: Dr. Zafar. REFERRING PHYSICIAN: Dr. Milligan HISTORY OF PRESENT ILLNESS: Patient is a 68-year-old male with a past medical history of hypertension, diabetes, mellitus, atrial fibrillation on Coumadin, heart failure with preserved ejection fraction with the last echocardiogram completed on 09/2018 who originally presented to [facility] after having blood work completed at the [facility]. Patient has been contacted by the [facility] and was told that his potassium was low. He presented to the [facility] ER where his potassium was found to be 2.6. The patient at the time had stated that he was taking metolazone and Lasix as an outpatient for his heart failure. In the emergency room he received calcium gluconate and IV potassium as well as oral. On his repeat labs yesterday his potassium started to improve however it was still low around 3. Overnight the patient was noted to have asymptomatic nonsustained ventricular tachycardia. The patient has been continued on IV potassium as well as oral today. The nephrology service was consulted as the patient remained hypokalemic. PAST MEDICAL HISTORY: 1. Diverticulitis. 2. Hypertension. 3. Atrial fibrillation, anticoagulated on Coumadin. 4. Obstructive sleep apnea on CPAP. 5. History of pulmonary hemorrhage requiring intubation and chest tube placement. 6. Post-traumatic stress disorder. 7. Bipolar disorder. PAST SURGICAL HISTORY: 1. History of chest tube placement secondary to pulmonary hemorrhage. 2. Biopsy of right lung. 3. Left middle finger amputation. FAMILY HISTORY: Patient is unsure of his family's past medical history that I will provide. SOCIAL HISTORY: Patient denies any history of syncope, alcohol use or tobacco use. ALLERGIES: 1. Albuterol. 2. Amlodipine. 3. Atenolol. INPATIENT MEDICATIONS: 1. Spironolactone 50 mg twice a day. 2. Calcium 500 mg daily. 3. Potassium micro K extend caps 40 mEq three times a day. 4. Bupropion 150 mg daily. 5. Finasteride 5 mg daily. 6. Omeprazole 40 mg daily. 7. Sertraline 200 mg daily. 8. Glipizide 2.5 mg daily. 9. Tylenol 650 mg every 4 hours as needed for pain. 10. Milk of Magnesia 30 mL daily as needed. 11. Mylanta 30 mL daily as needed as needed. 12. Colace 200 mg twice a day 13. Ferrous gluconate 648 mg twice a day. 14. Lopressor 12.5 mg twice a day. 15. Simvastatin 40 mg at bedtime. 16. Terazosin 10 mg at bedtime. 17. Mycostatin twice a day topical. 18. Coumadin 5 mg daily. REVIEW OF SYSTEMS: CONSTITUTIONAL: The patient denies any fevers, chills, night sweats. He denies any weight loss or weight gain. HEENT: Patient denies any changes in vision. He denies any conjunctival inflammation. He denies any headaches or migraines. CARDIOVASCULAR: Patient denies any chest pain, palpitations, orthopnea. PULMONARY: Patient denies any shortness of breath. He denies any cough. He denies any wheezing. ABDOMEN: Patient denies any nausea, vomiting, diarrhea, abdominal pain or constipation. GENITOURINARY: He denies any dysuria or increased frequency. HEMATOLOGIC: He denies any easy bruising or bleeding. ENDOCRINE: He denies any polydipsia or polyurea. He denies any heat or cold intolerance. MUSCULOSKELETAL: Patient denies any neck pain, back pain or musculoskeletal pain in general. NEUROLOGICAL: He denies any weakness and he denies any change in his speech. He denies any confusion. PSYCHIATRIC: Patient denies anxiety or depression. PHYSICAL EXAMINATION: VITAL SIGNS: Temperature 97.9, pulse 75, respiratory rate 18, blood pressure 114/60, pulse oximetry 98% on room air. GENERAL: Patient is awake, alert. He is oriented. He does not appear in any acute distress. He is sitting comfortably in bed. He is accompanied by his . HEENT: Atraumatic, normocephalic. Eyes are non-icteric. Trachea is midline. Mucous membranes are pink and moist. CARDIOVASCULAR: Normal S1, S2, regular rhythm and normal rate. No clicks, rubs, or murmurs auscultated. RESPIRATORY: Clear breath sounds bilaterally. No wheezes, rhonchi or rales. ABDOMEN: Morbid obesity. Abdomen is soft and it is nondistended and nontender to palpation in all four quadrants. Positive bowel sounds throughout. EXTREMITIES: Bilateral trace edema. PSYCHE: Mood and affect appear appropriate. LABORATORY DATA: Hematology: White blood cells 6.0, hemoglobin 11.0, hematocrit 34, platelets 184. Chemistries: Sodium 140, potassium 3.1, chloride 107, carbon dioxide 28, BUN 27, creatinine 1.59, fasting glucose 113. Calcium 8.4. Magnesium 2.0. A repeat potassium at 1450 is 3.7. Echocardiogram from 10/01/2018 demonstrated normal global left ventricular systolic function with probable mild concentric left ventricular hypertrophy and aortic valve sclerosis with stenosis but no aortic regurgitation. Mitral annulus calcification with mildly enlarged left atria and trace mitral regurgitation as well as mild tricuspid regurgitation with probably moderate pulmonary hypertension and a mildly enlarged right atrium. Left ventricular systolic function was estimated 55-70%. ASSESSMENT AND PLAN: 1. Total body potassium depletion. Likely secondary to diuretic use: Patient has received both oral potassium and IV potassium. This has been stopped as the patient has total body potassium depletion and likely will require a significant amount of oral potassium to replenish his stores. He was continued on metolazone and Lasix and this has been discontinued as both are potassium wasting. He has received a dose of spironolactone this morning. This will likely be continued tomorrow. Patient's IV fluid have been stopped as well. His repeat BMP has shown improvement in potassium of 3.7. We will reevaluate in the morning. 2. Heart failure with preserved ejection fraction: Patient currently has no signs of fluid overload. His diuretics are currently on hold. He was on metolazone, Lasix and spironolactone. He received a dose of each today. He will likely continue with spironolactone tomorrow. We will reevaluate whether an additional dose of Lasix is needed tomorrow. However given his hypokalemia it is best to avoid Lasix and metolazone. 3. Chronic kidney disease stage 3. Patient currently has a baseline creatinine of 1.3. His creatinine on presentation was elevated at 1.72, His repeat labs today demonstrated a creatinine of 1.42 and he is currently close to his baseline. We will continue to hold his diuretics and any nephrotoxic agents. 4. Hypocalcemia secondary to diuretics and intravenous fluids. Patient has a total ionized calcium of 4.4. He did receive calcium gluconate when he presented to the ER. This will be changed to just regular calcium supplementation. His IV fluids have been stopped as well. We will continue to monitor. My faculty preceptor for this patient encounter was physically present during the encounter and was fully available. All aspects of the patient interview, examination, medical decision making process, and medical care plan development were reviewed and approved by the faculty preceptor. The faculty preceptor is aware and concurs with the plan as stated in the body of this note and will attest to such by his/her co-signature. SIRISHA
[2019-04-23] MEDS: SIMVASTATIN 40 MG TAB PO SCH (21:04)
[2019-04-23] MEDS: TERAZOSIN 5 MG CAP PO SCH (21:04)
[2019-04-24] VITALS: BP 104/60
[2019-04-24 04:00] VITALS: BP 108/70
[2019-04-24] MEDS: SLF 3 ML SYR IV SCH ×2 (05:06→13:09)
--- NOTE | 2019-04-24 07:23 | IPNPDOC ---
Date Seen The patient was seen on 04/23/19. Progress Note SUBJECTIVE: Despite 400 meq po kdur and 90 meq kcl iv, pt's k is still 3.1. Tele on admission : nsvt. Tele overnight 2 second sinus pause without hemodynamic compromise and blood pressure is maintained. no sob, chest pain,pressure, tightness, or lightheadedness. denies any chest pain, sob, palpitations. nephrology consulted for hypokalemia mgt. OBJECTIVE: Physical Examination Vitals: pls see below General Exam: Positive: Alert Eye Exam: Positive: PERRLA, Conjunctiva & lids normal ENT Exam: Positive: Atraumatic Neck Exam: Positive: Supple, JVD Chest Exam: Positive: Clear to auscultation Heart Exam: Positive: Rate Normal, Normal S1, Normal S2 Abdomen Exam: Positive: Normal bowel sounds Extremity Exam: Positive: Normal pulses Skin Exam: Positive: Nl turgor and temperature Neuro Exam: Positive: Normal Gait, Strength at 5/5 X4 ext, Sensation Intact Psych Exam: Positive: Mental status NL, Mood NL, Oriented x 3 LABORATORY DATA, IMAGING DATA, MICROBIOLOGY: PLS SEE BELOW ASSESSMENT AND PLAN: 68 y/o white male with past medical history of hypertension, diabetes mellitus, status post right chest tube placement, status post biopsy of right lung which was 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 fib and hypertension was called by [facility] as the found that his serum potassium to be low and he patient was referred to the hospital for admission. Patient denies any complaints. No chest pain, shortness of breath, nausea, vomiting, diarrhea, etc. on monitor in ED, patient was found to have a short episode of a retake and hence we were asked to admit patient for observation. Hypokalemia Admitted to PCU for further observation Telemetry : NSVT most likely due to low potassium Patient received the potassium 50 mEq supplement in ED s/p kdur 40 meq po x 3doses 1hr apart, and krun 10 meq iv x 2 runs repeat mp q6hrs until normalized Nonsustained ventricular tachycardia due to low potassium mg is wnl And completely asymptomatic Continue monitoring on current medication Diverticulitis no acute c/o abd pain,fever, chills, n/v hypertension, controlled resumed home meds A. fib, rate controlled resumed home meds COPD, uses CPAP at night, not in acute exacerbation prn nebs chronic anemia, no acute indication for rbc transfusion stable H&H PTSD, bipolar disorder resumed home meds obesity bmi 37 complicating care dvt prophylaxis: ac for AFib disposition: await normalization of K+ and hse from physical therapy. VS, I&O, 24H, Fishbone Vital Signs/I&O Vital Signs Date Time Temp Pulse Resp B/P (MAP) Pulse Ox O2 Delivery O2 Flow Rate FiO2 04/23/19 04:00 97.0 80 22 100/64 (76) 99 04/21/19 19:19 Room Air I&O- Last 24 Hours up to 6 AM 04/23/19 06:00 Intake Total 2040 ml Output Total 1125 ml Balance 915 ml Laboratory Data 24H LABS Laboratory Tests 2 04/22/19 16:20: Whole Blood Ionized Calcium 4.3L 04/22/19 20:48: Bedside Glucose (Misc Panel) 123H 04/22/19 23:02: Anion Gap 4L, Glomerular Filtration Rate 47.6L, Blood Urea Nitrogen 31H, Creatinine 1.55H, Sodium Level 143, Potassium Level 3.2L, Chloride Level 106, Carbon Dioxide Level 33H, Calcium Level 8.8 04/23/19 05:17: Anion Gap 5L, Glomerular Filtration Rate 46.2L, Blood Urea Nitrogen 27H, Creatinine 1.59H, Sodium Level 140, Potassium Level 3.1L, Chloride Level 107, Carbon Dioxide Level 28, Calcium Level 8.4L, Magnesium Level 2.0 CBC/BMP Laboratory Tests 04/22/19 11:54 04/22/19 16:20 04/22/19 17:57 04/22/19 20:02 04/22/19 23:02 Calcium Level 8.8 04/23/19 05:17 Calcium Level 8.4 L AILYN SALMERON MD Apr 23, 2019 07:28
--- NOTE | 2019-04-24 07:38 | IPNPDOC ---
Date Seen The patient was seen on 04/24/19. Progress Note SUBJECTIVE: nephrology consulted for hypokalemia mgt due to massive requirement for k supplementation-90 meq iv kcl, 400 meq po kdur. tele: afib overnight, no recurrent sinus pause from 04/22/19 of 2.5 seconds. no c/o sob, chest pain, pressure, lightheadedness, dizziness, muscle weakness. anxious to go home. OBJECTIVE: Physical Examination Vitals: pls see below General Exam: Positive: Alert Eye Exam: Positive: PERRLA, Conjunctiva & lids normal ENT Exam: Positive: Atraumatic Neck Exam: Positive: Supple, JVD Chest Exam: Positive: Clear to auscultation Heart Exam: Positive: Rate Normal, Normal S1, Normal S2, irregularly irregular Abdomen Exam: Positive: Normal bowel sounds Extremity Exam: Positive: Normal pulses Skin Exam: Positive: Nl turgor and temperature Neuro Exam: Positive: Normal Gait, Strength at 5/5 X4 ext, Sensation Intact Psych Exam: Positive: Mental status NL, Mood NL, Oriented x 3 LABORATORY DATA, IMAGING DATA, MICROBIOLOGY: PLS SEE BELOW ASSESSMENT AND PLAN: 68 y/o white male with past medical history of hypertension, diabetes mellitus, status post right chest tube placement, status post biopsy of right lung which was 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 fib and hypertension was called by [facility] as the found that his serum potassium to be low and he patient was referred to the hospital for admission. Patient denies any complaints. No chest pain, shortness of breath, nausea, vomiting, diarrhea, etc. on monitor in ED, patient was found to have a short episode of a retake and hence we were asked to admit patient for observation. Hypokalemia Admitted to PCU for further observation Telemetry : NSVT most likely due to low potassium, sinus pause 2 sec 04/22/19, Patient received the potassium 50 mEq supplement in ED s/p kdur 400 meq po and kcl 90 meq iv deferred to nephrology to adjust diuretics s/p spironolactone per nephrology recommendation, all diuretics discontinued 04/23/19 Nonsustained ventricular tachycardia due to low potassium mg is wnl And completely asymptomatic Continue monitoring on current medication sinus pause 2 sec no recurrent episode asymptomatic with no sob, chest pain, or drop in blood pressure continue tele to rule out sick sinus syndrome and need for pacer Diverticulitis no acute c/o abd pain,fever, chills, n/v hypertension, controlled resumed home meds A. fib, rate controlled resumed home meds COPD, uses CPAP at night, not in acute exacerbation prn nebs chronic anemia, no acute indication for rbc transfusion stable H&H PTSD, bipolar disorder resumed home meds obesity bmi 37 complicating care dvt prophylaxis: ac for AFib disposition: awaitnephrology clearance. VS, I&O, 24H, Fishbone Vital Signs/I&O Vital Signs Date Time Temp Pulse Resp B/P (MAP) Pulse Ox O2 Delivery O2 Flow Rate FiO2 04/24/19 04:00 97.7 77 18 108/70 (83) 99 04/21/19 19:19 Room Air I&O- Last 24 Hours up to 6 AM 04/24/19 06:00 Intake Total 2360 ml Output Total 303 ml Balance 2057 ml Laboratory Data 24H LABS Laboratory Tests 2 04/23/19 10:02: Prothrombin Time 28.3H, Prothromb Time International Ratio 2.67, Whole Blood Ionized Calcium 4.4L, Magnesium Level 2.1 04/23/19 11:55: Bedside Glucose (Misc Panel) 98 04/23/19 13:50: Anion Gap 5L, Glomerular Filtration Rate 52.6, Blood Urea Nitrogen 24H, Creatinine 1.42H, Sodium Level 144, Potassium Level 3.7, Chloride Level 110H, Carbon Dioxide Level 29, Calcium Level 8.6L 04/23/19 17:28: Bedside Glucose (Misc Panel) 116H 04/23/19 20:21: Bedside Glucose (Misc Panel) 130H CBC/BMP Laboratory Tests 04/23/19 10:02 04/23/19 13:50 Calcium Level 8.6 L AILYN SALMERON MD Apr 24, 2019 07:38
[2019-04-24 07:51] LABS: IONIZED CALCIUM 4.4 MG/DL (4.5-5.3)
[2019-04-24 08:00] VITALS: BP 104/56
[2019-04-24 08:26] LABS: CALCIUM LEVEL 8.3 MG/DL (8.8-10.2); CREATININE FOR GFR 1.48 MG/DL (0.70-1.30); GLOMERULAR FILTRATION RATE 50.2 (>49); MAGNESIUM LEVEL 2.1 MG/DL (1.8-2.4); POTASSIUM SERUM 3.3 MEQ/L (3.5-5.1)
[2019-04-24] MEDS ORDERED: SPIRONOLACTONE 50 MG TAB PO SCH (09:00)
[2019-04-24] MEDS ORDERED: POTASSIUM CHLORIDE 10 MEQ SR TABLET PO ONE (09:00)
[2019-04-24] MEDS: HumaLOG INSULIN (NovoLOG) PER UNIT SC SCH ×2 (09:37→12:31)
[2019-04-24 09:38] VITALS: BP 104/56
[2019-04-24] MEDS: SERTRALINE 100 MG TAB PO SCH (09:38)
[2019-04-24] MEDS: FERROUS GLUCONATE 324 MG TAB PO SCH (09:38)
[2019-04-24] MEDS: glipiZIDE *2.5MG* 1/2 TABLET PO SCH (09:38)
[2019-04-24] MEDS: FINASTERIDE 5 MG TAB PO SCH (09:38)
[2019-04-24] MEDS: METOPROLOL TART 12.5 MG PER 1/2 TAB PO SCH (09:38)
[2019-04-24] MEDS: buPROPion **SR TABLET** (ZYBAN) 150MG PO SCH (09:38)
[2019-04-24] MEDS: OMEPRAZOLE 20 MG CAP PO SCH (09:38)
[2019-04-24] MEDS: CALCIUM/VITAMIN D 500 MG TAB PO SCH (09:39)
[2019-04-24] MEDS: DOCUSATE SODIUM 100 MG CAP PO SCH (09:39)
[2019-04-24] MEDS: NYSTATIN 100,000 UNITS/GM TOPICAL PWD 15 GM TOP SCH (09:42)
[2019-04-24] MEDS ORDERED: SPIR50TA4 PO (10:27)
[2019-04-24] MEDS ORDERED: K-TA1TAB PO (10:27)
[2019-04-24 13:44] VITALS: BP 113/62
--- NOTE | 2019-04-24 17:52 | IPN ---
DATE: 04/24/2019 SUBJECTIVE: Patient was seen and examined this morning at bedside. He currently has no new complaints. He states that his lower extremities continues to have mild swelling, which is around his normal. He denies any shortness of breath. He denies any chest pain. There have been no adverse events reported overnight. There have been no reports of erythema. OBJECTIVE: VITAL SIGNS: Temperature 97.6, pulse 67, respiratory rate 20, blood pressure 104/56, pulse oximetry 98% on room air. GENERAL: Patient is awake, alert, oriented. He does not appear in any acute distress. He is lying comfortably in bed. He is conversant. HEENT: Atraumatic, normocephalic. Eyes are nonicteric. Trachea is midline. Mucous membranes are pink and moist. CARDIOVASCULAR: Normal S1, S2. Regular rate and rhythm. No clicks, rubs or murmurs. RESPIRATORY: Clear vesicular breath sounds bilaterally. There are no wheezes, rhonchi or rales. Symmetric chest expansion. ABDOMINAL: Morbid obesity. His abdomen is soft. It is nontender. It is nondistended. There are positive bowel sounds throughout. EXTREMITIES: Continued bilateral trace edema. PSYCHIATRIC: Mood and affect appear appropriate. LABORATORY DATA: Chemistries: Sodium 144, potassium 3.3, chloride 110, BUN 21, carbon dioxide 28, creatinine 1.48, fasting glucose 102, calcium 8.3, ionized calcium 4.4, magnesium 2.1. BNP 1759. ASSESSMENT AND PLAN: 1. Total body potassium depletions. Likely secondary to diuretic use. Patient has received spironolactone this morning as well as 40 mEq of potassium. Potassium is currently 3.3. His metolazone and Lasix have been stopped, which have likely been contributing to her potassium wasting. His potassium level is currently 3.3 and is approaching a normal level. Will continue the patient on 20 mEq of potassium supplementation daily as well as spironolactone. From a nephrology standpoint, the patient is improving. He will need to follow up in the clinic within a week for management of his diuretics as his metolazone and Lasix have been discontinued. 2. Heart failure with preserved ejection fraction. Patient currently has no signs of fluid overload. He has bilateral trace edema, which, according to patient, is close to his normal. His diuretics continue to be on hold. He was previously on metolazone, Lasix and spironolactone. His metolazone and Lasix have been discontinued. He will remain on 50 mg of spironolactone daily. He will also be given 20 mEq of potassium supplementation daily. The patient will need to follow up in the nephrology clinic within a week for management of his diuretics. 3. Chronic kidney disease stage III. He currently has a baseline creatinine of 1.3. His creatinine today is 1.48. He is approaching his baseline. His rising creatinine was likely secondary to diuretic use. Currently his Lasix and metolazone is discontinued. 4. Hypocalcemia. Secondary to diuretics and intravenous fluids. Patient continues to have a total ionized calcium of 4.4. He is continued on calcium supplementation. Will continue to monitor.
[2019-04-25] MEDS ORDERED: POTASSIUM CHLORIDE 10 MEQ SR TABLET PO SCH (09:00)
== END 2019-04-24 13:39 | disposition home or self-care (01) | DRG 641 ==
LOC: M ED 17:09 → M ED INP 17:10 → M PCU 21:46 → OBSVTOIN 04-23 06:59
PROVIDERS: ADMIT Internal Medicine; ATTEND General Practice
DX: E87.6 Hypokalemia (principal); I50.32 Chronic diastolic (congestive) heart failure; I47.2 Ventricular tachycardia; I13.0 Hypertensive heart and chronic kidney disease with heart failure and stage 1 through stage 4 chronic kidney disease, or unspecified chronic kidney disease; J84.03 Idiopathic pulmonary hemosiderosis; E83.51 Hypocalcemia; N18.3 Chronic kidney disease, stage 3 (moderate); E66.9 Obesity, unspecified; I48.91 Unspecified atrial fibrillation; I27.20 Pulmonary hypertension, unspecified; Z79.01 Long term (current) use of anticoagulants; N40.0 Benign prostatic hyperplasia without lower urinary tract symptoms; E83.118 Other hemochromatosis; K57.30 Diverticulosis of large intestine without perforation or abscess without bleeding; J44.9 Chronic obstructive pulmonary disease, unspecified; D64.9 Anemia, unspecified; F31.9 Bipolar disorder, unspecified; F43.10 Post-traumatic stress disorder, unspecified; Z68.37 Body mass index [BMI] 37.0-37.9, adult; I08.3 Combined rheumatic disorders of mitral, aortic and tricuspid valves; Z79.899 Other long term (current) drug therapy; Z88.8 Allergy status to other drugs, medicaments and biological substances; G47.33 Obstructive sleep apnea (adult) (pediatric)

== ENCOUNTER 2019-04-27 21:17 | Inpatient (IN) | payer OTHER, MEDICARE ==
[~2019-04-27] VITALS: Ht 175.3 cm; Wt 117.7 kg
[2019-04-27] MEDS: METOPROLOL TART 25 MG TABLET PO SCH (21:00)
[2019-04-27] MEDS: DOCUSATE SODIUM 100 MG CAP PO SCH (21:00)
[2019-04-27] MEDS: FERROUS GLUCONATE 324 MG TAB PO SCH (21:00)
[2019-04-27] MEDS: SIMVASTATIN 40 MG TAB PO SCH (21:00)
[2019-04-27] MEDS: TERAZOSIN 5 MG CAP PO SCH (21:00)
[~2019-04-27 21:17] MED LIST changes: +ALDA50TA2 PO; +K-TA1TAB PO; +METO25TA PO; +PHARMACY COMMENT; +SPIR50TA4 PO; +VITA250T4 PO; +WARFARIN SOD 5 MG TAB PO SCH; +ZOCO80TA PO
[2019-04-27] MEDS ORDERED: FUROSEMIDE 100 MG/10 ML VIAL (J1940) IV ONE (22:15)
[2019-04-27] MEDS ORDERED: IPRATROPIUM 0.5MG/ALBUTEROL 2.5MG INH SOL UD 3ML (DUONEB)(J7620) NEB ONE (22:15)
[2019-04-27] MEDS ORDERED: dexameTHASONE 20 MG/5 ML VIAL (J1100) IV ONE (22:15)
[2019-04-27 22:40] LABS: ABG BASE EXCESS -1.6 (-2.0-2.0); ABG HCO3 20.5 MEQ/L (22.0-26.0); ABG PARTIAL PRESSURE O2 53.4 mmHg (75.0-100.0); ABG TOTAL CO2 21.4 MEQ/L (23.0-31.0); ABG pH (ARTERIAL) 7.499 UNITS (7.350-7.450)
[2019-04-27 22:45] LABS: BASO % 0.2 % (0.0-1.0); EOS # 0.1 10^3/uL (0.0-0.50); EOS % 0.7 % (0.0-3.0); HEMATOCRIT 35.2 % (42.0-52.0); HEMOGLOBIN 10.9 g/dl (13.5-17.5); LYMPH # 0.9 10^3/uL (1.5-4.5); LYMPH % 7.1 % (24.0-44.0); MEAN CORPUSCULAR HEMOGLOBIN 26.5 pg (27.0-33.0); MEAN CORPUSCULAR VOLUME 85.4 fl (80.0-96.0); MONO # 0.7 10^3/uL (0.0-0.8); MONO % 5.4 % (0.0-5.0); NEUTROPHILS # 10.7 10^3/uL (1.8-7.7); NEUTROPHILS % 85.7 % (36.0-66.0); PLATELET COUNT, AUTOMATED 189 10^3/uL (150-450); RED BLOOD COUNT 4.12 10^6/uL (4.30-6.10); WHITE BLOOD COUNT 12.5 10^3/uL (4.0-10.0)
[2019-04-27 22:56] LABS: INR 3.67; PROTHROMBIN TIME 36.5 SECONDS (11.8-14.0)
[2019-04-27 22:57] LABS: PARTIAL THROMBOPLASTIN TIME 60.4 SECONDS (25.0-38.4)
[2019-04-27 23:17] LABS: BLOOD UREA NITROGEN 18 MG/DL (7-18); CALCIUM LEVEL 8.4 MG/DL (8.8-10.2); CARBON DIOXIDE LEVEL 25 MEQ/L (21-32); CHLORIDE LEVEL 117 MEQ/L (98-107); CREATININE FOR GFR 1.45 MG/DL (0.70-1.30); GLOMERULAR FILTRATION RATE 51.4 (>49); GLUCOSE, FASTING 97 MG/DL (70-100); NT-PRO BNP 4120 PG/ML (<125); POTASSIUM SERUM 4.2 MEQ/L (3.5-5.1); SODIUM LEVEL 147 MEQ/L (136-145)
[2019-04-27] MEDS ORDERED: PIPERACILLIN/TAZOBACTAM SOD 3.375 GM in D5W MINI-BAG PLUS 50 ML IV ONE (23:45)
[2019-04-28] MEDS ORDERED: MOM 30ML SUSPENSION UDC PO PRN (00:15)
[2019-04-28] MEDS ORDERED: ACETAMINOPHEN TAB 650MG DOSE (2X325MG) PO PRN (00:15)
[2019-04-28] MEDS ORDERED: MAALOX 30 ML SUSP *UDC PO PRN (00:15)
--- NOTE | 2019-04-28 00:40 | REPVR ---
EXAM: US Duplex Bilateral Lower Extremity Veins EXAM DATE/TIME: 04/27/2019 11:38 PM CLINICAL HISTORY: 68 years old, male; Edema, localized; Lower extremity, bilateral; Additional info: Ingris TECHNIQUE: Imaging protocol: Real-time duplex ultrasound of the Bilateral Lower Extremities with 2-D arechiga scale, color Doppler flow and spectral waveform analysis with image documentation. Complete exam focused on the bilateral lower extremity veins. COMPARISON: US Duplex, Ext,LOWER veins,unilat 06/29/2015 8:11 AM FINDINGS: Right deep veins: Unremarkable. The common femoral, femoral, proximal profunda femoral and popliteal veins are patent without thrombus. Normal Doppler waveforms. Normal compressibility and/or augmentation response. Right superficial veins: Saphenofemoral junction is patent without thrombus. Left deep veins: Unremarkable. The common femoral, femoral, proximal profunda femoral and popliteal veins are patent without thrombus. Normal Doppler waveforms. Normal compressibility and/or augmentation response. Left superficial veins: Saphenofemoral junction is patent without thrombus. Soft tissues: Unremarkable. IMPRESSION: No sonographic evidence of deep vein thrombosis. Electronically signed by: Marin Ibarra On 04/28/2019 00:40:16 AM
[2019-04-28] MEDS ORDERED: POTA1TAB14 PO (00:46)
[2019-04-28] MEDS ORDERED: K-TA1TAB PO (00:46)
--- NOTE | 2019-04-28 00:47 | HPEPDOC ---
General Date of Admission 04/28/19 Date of Service: Apr 28, 2019 Attending Physician: LENIN ROBERTO MD Chief Complaint The patient is a 68-year-old male admitted with a reason for visit of Samy beckham. 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 fib, hypertension, presented in the ER with the chief complaints of increasing shortness of breath since last few days per getting worse since today and decided to come to ER for further workup. In the ED his chest x-ray consistent with vascular congestion versus chronic interstitial changes and a possible right lower lobe infiltrate. Patient being admitted with the diagnosis of interstitial lung disease, possible diastolic heart failure and right lower lobe Home Medications Scheduled Ascorbic Acid (Vitamin C) 250 Mg Tablet, 250 MG PO DAILY, (Reported) Bupropion Hcl (Bupropion HCl Sr) 150 Mg Tab, 150 MG PO DAILY, (Reported) Cholecalciferol (Vitamin D3) (Vitamin D3) 1,000 Unit Tab, 1,000 UNIT PO DAILY, (Reported) Docusate Sodium (Docusate Sodium) 100 Mg Cap, 200 MG PO BID, (Reported) Ferrous Gluconate (Ferrous Gluconate) 324 Mg Tab, 648 MG PO BID, (Reported) Finasteride (Finasteride) 5 Mg Tab, 5 MG PO DAILY, (Reported) Glipizide (Glipizide) 5 Mg Tab, 2.5 MG PO DAILY, (Reported) TAKES BEFORE BREAKFAST Metoprolol Tartrate (Metoprolol Tartrate) 25 Mg Tab, 12.5 MG PO BID, (Reported) Omeprazole (Omeprazole) 20 Mg Tab, 40 MG PO DAILY, (Reported) Potassium Chloride (K-Tab ER) 20 Meq Tablet.er, 20 MEQ PO DAILY, (Reported) Sertraline HCl (Sertraline HCl) 100 Mg Tab, 200 MG PO DAILY, (Reported) Simvastatin (Zocor) 80 Mg Tablet, 40 MG PO QHS, (Reported) Spironolactone (Spironolactone) 50 Mg Tablet, 50 MG PO DAILY Terazosin Hcl (Terazosin HCl) 10 Mg Cap, 10 MG PO QHS, (Reported) Warfarin Sodium (Warfarin Sodium) 2.5 Mg Tab, 5 MG PO QHS, (Reported) Miscellaneous Medications [Pharmacy Comment] , (Reported) MEDICATIONS VERIFIED WITH [facility] Allergies Coded Allergies: albuterol (Verified Allergy, Unknown, 04/27/19) amlodipine (Verified Allergy, Unknown, 04/27/19) atenolol (Verified Allergy, Unknown, 04/27/19) Past Medical History Medical History Diverticulitis, hypertension, A. 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 Social History * Smoker: Denies Drugs: denies Recent Travel/Sick Contacts: Reports: Recent travel A-FIB/[facility] A-FIB History Current/History of A-Fib/PAF?: Yes Current PO Anticoag Therapy: Yes Review of Systems Constitutional: Denies: Chills, Fever, Malaise, Night Sweats, Weakness, Fatigue, Weight Loss, Lethargy, Other Eyes: Denies: Pain, Vision change, Conjunctivae inflammation, Eyelid inflammation, Redness, Other ENT: Denies: Head Aches, Ear Pain, Dysphagia, Sinus Congestion, Post Nasal Drip, Sore Throat, Epistaxis, Other Symptoms Skin: Denies: Rash, Lesions, Jaundice, Bruising, Itching, Dry, Breakdown, Nail Changes, Other Pulmonary: Reports: Dyspnea Cardiovascular: Denies: Chest Pain, Palpitations, Orthopnea, Paroxysmal Noc. Dyspnea, Edema, Lt Headedness, Other Symptoms Gastrointestinal: Denies: Nausea, Vomiting, Abdominal Pain, Diarrhea, Constipation, Melena, Hematochezia, Other Symptoms Genitourinary: Denies: Dysuria, Frequency, Incontinence, Hematuria, Retention, Other Symptoms Hematologic: Denies: Bruising, Bleeding Excessively, Petecchia, Purpura, Enl arged Lymph Nodes, Other Hematologic Endocrine: Denies: Polydipsia, Polyphagia, Polyuria, Heat Intolerance, Cold Intolerance, Other Endocrine Sx Musculoskeletal: Denies: Neck Pain, Back Pain, Shoulder Pain, Arm Pain, Hand Pain, Leg Pain, Foot Pain, Joint Pain, Muscle Pain, Spasms, Other Symptoms Neurological: Denies: Weakness, Numbness, Incoordination, Change in speech, Confusion, Seizures, Other Symptoms Psych: Denies: Mood Normal, Anxiety, Depression, Memory Issues, Thoughts of Self Harm, Anger, Thoughts of Harming Other, Other Psych Physical Examination General Exam: Positive: Alert, Cooperative Eye Exam: Positive: PERRLA, Conjunctiva & lids normal ENT Exam: Positive: Atraumatic, Mucous membr. moist/pink Neck Exam: Positive: Supple Chest Exam: Positive: Other (bilateral crackles but no wheezing, rhonchi, or rales) Heart Exam: Positive: Rate Normal, Normal S1, Normal S2 Abdomen Exam: Positive: Normal bowel sounds, Soft Extremity Exam: Positive: Normal pulses Skin Exam: Positive: Nl turgor and temperature Neuro Exam: Positive: Normal Gait, Normal Speech Psych Exam: Positive: Mental status NL, Mood NL, Oriented x 3 Vital Signs Vital Signs Date Time Temp Pulse Resp B/P (MAP) Pulse Ox O2 Delivery O2 Flow Rate FiO2 04/27/19 22:24 04/27/19 21:17 99.2 87 20 90 Room Air Laboratory Data Labs 24H Laboratory Tests 2 04/27/19 22:31: Blood Gas Bicarbonate Standard 23.0, Arterial Blood pH 7.499H, Arterial Blood Partial Pressure CO2 27.0L, Arterial Blood Partial Pressure O2 53.4L, Arterial Blood Total CO2 21.4L, Arterial Blood HCO3 20.5L, Arterial Blood Base Excess - 1.6, Arterial Blood Oxygen Saturation 89.0L 04/27/19 22:39: Immature Granulocyte % (Auto) 0.9, White Blood Count 12.5H, Red Blood Count 4.1 2L, Hemoglobin 10.9L, Hematocrit 35.2L, Mean Corpuscular Volume 85.4, Mean Corpuscular Hemoglobin 26.5L, Mean Corpuscular Hemoglobin Concent 31.0L, Red Cell Distribution Width 17.9H, Platelet Count 189, Neutrophils (%) (Auto) 85.7H, Lymphocytes (%) (Auto) 7.1L, Monocytes (%) (Auto) 5.4H, Eosinophils (%) (Auto) 0.7, Basophils (%) (Auto) 0.2, Neutrophils # (Auto) 10.7H, Lymphocytes # (Auto) 0.9L, Monocytes # (Auto) 0.7, Eosinophils # (Auto) 0.1, Basophils # (Auto) 0.0, Nucleated Red Blood Cells % (auto) 0.0, Prothrombin Time 36.5H, Prothromb Time International Ratio 3.67, Activated Partial Thromboplast Time 60.4H, Anion Gap 5L, Glomerular Filtration Rate 51.4, Blood Urea Nitrogen 18, Creatinine 1.45H, Sodium Level 147H, Potassium Level 4.2, Chloride Level 117H, Carbon Dioxide Level 25, Calcium Level 8.4L, CW-Rep-X-Type Natriuretic Peptide 4120H CBC/BMP Laboratory Tests 04/27/19 22:39 Red Blood Count 4.12 L, Mean Corpuscular Volume 85.4, Mean Corpuscular Hemoglobin 26.5 L, Mean Corpuscular Hemoglobin Concent 31.0 L, Red Cell Distribution Width 17.9 H, Neutrophils (%) (Auto) 85.7 H, Lymphocytes (%) (Auto) 7.1 L, Monocytes (%) (Auto) 5.4 H, Eosinophils (%) (Auto) 0.7, Basophils (%) (Auto) 0.2, Neutrophils # (Auto) 10.7 H, Lymphocytes # (Auto) 0.9 L, Monocytes # (Auto) 0.7, Eosinophils # (Auto) 0.1, Basophils # (Auto) 0.0, Calcium Level 8.4 L Problems (1) Pneumonia Status: Acute Problem Text: 68 years old white male with multiple medical problems presented with shortness of breath on chest x-ray, interstitial fibrosis versus diastolic heart failure and possible right lower lobe infiltrate, since patient was recently admitted and discharged about 2 days ago, most likely is hospital- acquired pneumonia Official report is still pending, pre-calcitonin level is pending. Chest x-ray was read by me personally. Admitted to PCU with telemetry Saline lock Start Zosyn 3.375 mg IV piggyback every 6 hours A wide vancomycin secondary to chronic kidney failure Will also ordered pro-calcitonin as patient is afebrile. If pro-calcitonin is negative and white count is trending down, we might de-escalate the antibiotics DuoNeb when necessary for shortness of breath Follow official chest x-ray report Also follow bilateral venous Doppler report is still pending DVT prophylaxis not needed as patient is on Coumadin with therapeutic INR Continue home meds O2 support (2) CHF exacerbation Status: Acute Problem Text: Patient's echocardiogram were done on last admission which showed ECHOCARDIOGRAM 1. Normal global left ventricular systolic function. There is probably mild concentric left ventricular hypertrophy. 2. Aortic valve sclerosis with trivial aortic stenosis, but no aortic regurgitation. 3. Mitral annulus calcification with mildly enlarged left atrium and trace mitral regurgitation. 4. Mild tricuspid regurgitation with probably moderate pulmonary hypertension. The right atrium appeared to be mildly enlarged. 5. Not mentioned above, a sigmoid appearance of the basal ventricular septum was noted, a benign finding. Is to x-ray consistent with interstitial vascular congestion most likely acute diastolic heart failure And did receive her Lasix 100 mg IV in ED and will continue 40 mg IV every 12 hours I and O's Close monitoring and follow patient's symptoms Troponins 2 every 6 hours has been ordered BNP was elevated on admission of 412o Repeat BNP in a.m. (3) Hypoxia Status: Acute Problem Text: Multifactorial secondary to possible acute diastolic heart failure, interstitial lung disease of idiopathic nature and right lower lobe pneumonia Patient on oxygen support And also DuoNeb when necessary , We'll closely monitor patient and if requires will aid IV steroids, but his lungs are so far just indicated above. Crackles at bilateral bases but no wheezing or rhonchi (4) HTN (hypertension) Status: Chronic (5) Afib Status: Chronic Problem Text: Under control on Coumadin Plan / VTE VTE Prophylaxis Ordered?: Yes LENIN ROBERTO MD Apr 28, 2019 00:47
[2019-04-28] MEDS ORDERED: SPIR50TA4 PO (00:51)
[2019-04-28 00:53] LABS: TROPONIN I < 0.02 NG/ML (< 0.10)
[2019-04-28] MEDS ORDERED: IPRATROPIUM 0.5MG/ALBUTEROL 2.5MG INH SOL UD 3ML (DUONEB)(J7620) NEB PRN (01:00)
[2019-04-28] MEDS ORDERED: GLUCOSE 4 GM CHEW TABLET PO PRN (01:30)
[2019-04-28] MEDS ORDERED: GLUCAGON FOR INJ 1 MG VIAL (J1610) SC PRN (01:30)
[2019-04-28] MEDS ORDERED: DEXTROSE 50% 50 ML SYRINGE IV PRN (01:30)
[2019-04-28] MEDS ORDERED: PIPERACILLIN/TAZOBACTAM SOD 3.375 GM in D5W MINI-BAG PLUS 50 ML IV SCH (06:00)
[2019-04-28 07:08] LABS: INR 3.24; PROTHROMBIN TIME 33.1 SECONDS (11.8-14.0)
[2019-04-28] MEDS: HumaLOG INSULIN (NovoLOG) PER UNIT SC SCH ×4 (07:30→21:00)
--- NOTE | 2019-04-28 08:07 | REP ---
PA and lateral chest: Comparison is 10/01/2018. There are bilateral perihilar interstitial infiltrates. These have worsened from the prior study. There is cardiomegaly, unchanged. There are no pleural effusions. Mediastinum and skeletal structures are unchanged. Impression: Worsening bilateral perihilar infiltrates. Sign taking Electronically Signed by Bill Ley MD 04/28/2019 08:00 A
[2019-04-28] MEDS: OMEPRAZOLE 20 MG CAP PO SCH (08:28)
[2019-04-28] MEDS: FINASTERIDE 5 MG TAB PO SCH (08:28)
[2019-04-28] MEDS: SPIRONOLACTONE 50 MG TAB PO SCH (08:30)
[2019-04-28] MEDS: DOCUSATE SODIUM 100 MG CAP PO SCH ×2 (08:30→21:06)
[2019-04-28] MEDS: METOPROLOL TART 25 MG TABLET PO SCH ×2 (08:30→21:07)
[2019-04-28] MEDS: FUROSEMIDE 40 MG/4 ML VIAL (J1940) IV SCH ×2 (08:31→17:55)
[2019-04-28] MEDS: ENOXAPARIN 40 MG/0.4 ML SYRINGE (J1650) SC SCH (08:31)
[2019-04-28] MEDS: SERTRALINE 100 MG TAB PO SCH (08:31)
[2019-04-28] MEDS ORDERED: AZITHROMYCIN 250 MG TAB PO SCH (09:00)
[2019-04-28] MEDS ORDERED: POTASSIUM CHLORIDE 10 MEQ SR TABLET PO SCH (09:00)
[2019-04-28] MEDS: glipiZIDE *2.5MG* 1/2 TABLET PO SCH (09:39)
[2019-04-28] MEDS: FERROUS GLUCONATE 324 MG TAB PO SCH ×2 (09:39→21:07)
[2019-04-28] MEDS: buPROPion **SR TABLET** (ZYBAN) 150MG PO SCH (09:39)
--- NOTE | 2019-04-28 11:57 | IPNPDOC ---
Subjective Date Seen The patient was seen on 04/28/19. Subjective Chief Complaint/HPI Patient states he presented to the ED last night due to worsening difficulty breathing since Saturday morning. He was previously discharged from the hospital on Saturday after being admitted for observation for an episode of nonsustained ventricular tachycardia which was observed on the monitor in the ED on 04/21. He initially presented to the ED on 04/21 due to low potassium level which was identified on an outpatient lab test. During his last admission, two of his home diuretics, furosemide and metolazone, were discontinued to help keep his po tassium levels from dropping again. After he was discharged he started to develop increasing shortness of breath. He states his legs have also become more swollen. Since admission he states his breathing has already improved. He denies any fevers, chills, cough, or sputum production. He states he is not sure if he has had any weight gain as he does not use a scale at home. Constitutional: Denies: Chills, Fever, Night Sweats ENT: Denies: Head Aches Skin: Denies: Rash, Lesions Pulmonary: Denies: Dyspnea, Cough Cardiovascular: Denies: Chest Pain, Palpitations, Lt Headedness Gastrointestinal: Denies: Nausea, Vomiting, Abdominal Pain, Diarrhea Genitourinary: Denies: Dysuria, Frequency, Incontinence Musculoskeletal: Denies: Joint Pain, Muscle Pain Neurological: Denies: Weakness, Change in speech, Confusion Psych: Reports: Mood Normal Objective Physical Examination General Exam: Positive: Alert, Cooperative Eye Exam: Positive: PERRLA, Conjunctiva & lids normal ENT Exam: Positive: Atraumatic, Mucous membr. moist/pink Neck Exam: Positive: Supple Chest Exam: Positive: Clear to auscultation, Normal air movement; Negative: Wheezing Heart Exam: Positive: Rate Normal, Normal S1, Normal S2; Negative: Murmurs, Rubs Abdomen Exam: Positive: Normal bowel sounds, Soft; Negative: Tenderness Extremity Exam: Positive: Edema (2+ pitting in bilateral lower extremities), Normal pulses Skin Exam: Positive: Nl turgor and temperature Neuro Exam: Positive: Normal Gait, Normal Speech Psych Exam: Positive: Mental status NL, Mood NL, Oriented x 3 Assessment /Plan Assessment Patient is a 68-year-old male with a past medical history of diastolic heart failure, idiopathic pulmonary hemosiderosis, diabetes, hypertension, atrial fibrillation, currently on Coumadin, and iron deficiency anemia, who presented with shortness of breath after recently discontinuation of two diuretics. Plan/VTE VTE Prophylaxis Ordered?: Yes Plan 1. Acute respiratory failure likely secondary to diastolic heart failure Patient appears to be fluid overloaded due to discontinuation of two of his diuretics due to hypokalemia. He received 100mg IV furosemide dose in the ED. We will start him on furosemide 40mg BID with potassium supplementation and monitor his potassium daily. Will continue his home spironolactone. He continues to require oxygen at 4 liters via nasal cannula. He does not typically use oxygen supplementation at home. - Taper off supplemental oxygen as saturations improve 2. Suspected pneumonia Will discontinue Zosyn as pt does not appear to have a pneumonia. He has been afebrile with a minimally elevated WBC count. Will check procalcitonin as well. CXR findings likely attributed to fluid overload. Will continue to monitor. 3. Atrial fibrillation Rate controlled. Continue home metoprolol. His INR is supratherapeutic at 3.24 today. Will hold coumadin today and recheck INR tomorrow. 4. HTN Continue home medications 5. Iron deficiency anemia, chronic Continue iron supplement daily. 6. Hx of idiopathic pulmonary hemosiderosis No current complaint of hemoptysis. VS, I&O, 24H, Fishbone Vital Signs/I&O Vital Signs Date Time Temp Pulse Resp B/P (MAP) Pulse Ox O2 Delivery O2 Flow Rate FiO2 04/28/19 08:21 98.0 74 22 101/57 (72) 91 Nasal Cannula 4.0 Laboratory Data 24H LABS Laboratory Tests 2 04/27/19 22:31: Blood Gas Bicarbonate Standard 23.0, Arterial Blood pH 7.499H, Arterial Blood Partial Pressure CO2 27.0L, Arterial Blood Partial Pressure O2 53.4L, Arterial Blood Total CO2 21.4L, Arterial Blood HCO3 20.5L, Arterial Blood Base Excess - 1.6, Arterial Blood Oxygen Saturation 89.0L 04/27/19 22:39: Immature Granulocyte % (Auto) 0.9, White Blood Count 12.5H, Red Blood Count 4.12L, Hemoglobin 10.9L, Hematocrit 35.2L, Mean Corpuscular Volume 85.4, Mean Corpuscular Hemoglobin 26.5L, Mean Corpuscular Hemoglobin Concent 31.0L, Red Cell Distribution Width 17.9H, Platelet Count 189, Neutrophils (%) (Auto) 85.7H, Lymphocytes (%) (Auto) 7.1L, Monocytes (%) (Auto) 5.4H, Eosinophils (%) (Auto) 0.7, Basophils (%) (Auto) 0.2, Neutrophils # (Auto) 10.7H, Lymphocytes # (Auto) 0.9L, Monocytes # (Auto) 0.7, Eosinophils # (Auto) 0.1, Basophils # (Auto) 0.0, Nucleated Red Blood Cells % (auto) 0.0, Prothrombin Time 36.5H, Prothromb Time International Ratio 3.67, Activated Partial Thromboplast Time 60.4H, Anion Gap 5L, Glomerular Filtration Rate 51.4, Blood Urea Nitrogen 18, Creatinine 1.45H, Sodium Level 147H, Potassium Level 4.2, Chloride Level 117H, Carbon Dioxide L evel 25, Calcium Level 8.4L, Magnesium Level 2.0, Troponin I < 0.02, EL-Oaz-F-Type Natriuretic Peptide 4120H 04/28/19 06:43: Prothrombin Time 33.1H, Prothromb Time International Ratio 3.24, Troponin I < 0.02, Lactic Acid Level 1.5 04/28/19 07:41: Bedside Glucose (Misc Panel) 255H CBC/BMP Laboratory Tests 04/27/19 22:39 Red Blood Count 4.12 L, Mean Corpuscular Volume 85.4, Mean Corpuscular Hemoglobin 26.5 L, Mean Corpuscular Hemoglobin Concent 31.0 L, Red Cell Distribution Width 17.9 H, Neutrophils (%) (Auto) 85.7 H, Lymphocytes (%) (Auto) 7.1 L, Monocytes (%) (Auto) 5.4 H, Eosinophils (%) (Auto) 0.7, Basophils (%) (Auto) 0.2, Neutrophils # (Auto) 10.7 H, Lymphocytes # (Auto) 0.9 L, Monocytes # (Auto) 0.7, Eosinophils # (Auto) 0.1, Basophils # (Auto) 0.0, Calcium Level 8.4 L GME ATTESTATION GME ATTESTATION My faculty preceptor for this patient encounter was physically present during the encounter and was fully available. All aspects of the patient interview, examination, medical decision making process, and medical care plan development were reviewed and approved by the faculty preceptor. The faculty preceptor is aware and concurs with the plan as stated in the body of this note and will attest to such by his/her cosignature. ATTENDING NOTE I, Sylvester Wilhelm, have independently examined this patient and performed my own physical exam, as well as reviewed the documentation and edited where necessary. I have discussed in detail with the resident / student the findings and plan of treatment as documented by the resident / student and edited their note. I agree with their findings and treatment plan and have edited their documentation. I will continue to follow the patient during this hospital stay. FELICITA FOFANA PGY-1 Apr 28, 2019 11:57 SYLVESTER WILHELM MD Apr 28, 2019 16:41
[2019-04-28 12:00] VITALS: BP 113/66
[2019-04-28] MEDS: SIMVASTATIN 40 MG TAB PO SCH (21:06)
[2019-04-28] MEDS: TERAZOSIN 5 MG CAP PO SCH (21:06)
[2019-04-28 22:00] VITALS: BP 116/62
[2019-04-29 06:00] VITALS: BP 115/60
[2019-04-29 06:19] LABS: HEMATOCRIT 30.6 % (42.0-52.0); HEMOGLOBIN 9.7 g/dl (13.5-17.5); MEAN CORPUSCULAR HEMOGLOBIN 26.4 pg (27.0-33.0); MEAN CORPUSCULAR HGB CONC 31.7 g/dl (32.0-36.5); MEAN CORPUSCULAR VOLUME 83.4 fl (80.0-96.0); PLATELET COUNT, AUTOMATED 196 10^3/uL (150-450); RED BLOOD COUNT 3.67 10^6/uL (4.30-6.10); WHITE BLOOD COUNT 9.4 10^3/uL (4.0-10.0)
[2019-04-29 06:31] LABS: INR 2.71; PROTHROMBIN TIME 28.6 SECONDS (11.8-14.0)
[2019-04-29 06:57] LABS: ALBUMIN 2.6 GM/DL (3.2-5.2); BILIRUBIN,TOTAL 0.8 MG/DL (0.2-1.0); CALCIUM LEVEL 8.4 MG/DL (8.8-10.2); CREATININE FOR GFR 1.63 MG/DL (0.70-1.30); GLOMERULAR FILTRATION RATE 44.9 (>49); MAGNESIUM LEVEL 2.1 MG/DL (1.8-2.4); POTASSIUM SERUM 3.1 MEQ/L (3.5-5.1); TOTAL PROTEIN 6.6 GM/DL (6.4-8.2)
[2019-04-29] MEDS: HumaLOG INSULIN (NovoLOG) PER UNIT SC SCH ×4 (07:26→21:00)
[2019-04-29] MEDS: FERROUS GLUCONATE 324 MG TAB PO SCH ×2 (07:38→20:25)
[2019-04-29] MEDS: OMEPRAZOLE 20 MG CAP PO SCH (07:38)
[2019-04-29] MEDS: FUROSEMIDE 40 MG/4 ML VIAL (J1940) IV SCH (07:38)
[2019-04-29] MEDS: SPIRONOLACTONE 50 MG TAB PO SCH (07:38)
[2019-04-29] MEDS: SERTRALINE 100 MG TAB PO SCH (07:38)
[2019-04-29] MEDS: glipiZIDE *2.5MG* 1/2 TABLET PO SCH (07:38)
[2019-04-29] MEDS: buPROPion **SR TABLET** (ZYBAN) 150MG PO SCH (07:38)
[2019-04-29] MEDS: FINASTERIDE 5 MG TAB PO SCH (07:38)
[2019-04-29] MEDS: DOCUSATE SODIUM 100 MG CAP PO SCH ×2 (07:39→20:26)
[2019-04-29] MEDS: METOPROLOL TART 25 MG TABLET PO SCH ×2 (07:39→20:26)
[2019-04-29] MEDS: ENOXAPARIN 40 MG/0.4 ML SYRINGE (J1650) SC SCH (07:40)
--- NOTE | 2019-04-29 08:31 | REP ---
Clinical: CHF. Technique: Portable semiupright view of the chest. Comparison: 04/27/2019. Findings: Diffuse increased interstitial and alveolar infiltrates are appreciated throughout the bilateral lung archuleta and primarily involving the bilateral mid lung zones. Mediastinum and cardiac silhouette are stable. Indistinct pulmonary vasculature noted. No obvious effusion. No pneumothorax. Skeletal structures stable. Impression: Increasing bilateral alveolar and interstitial infiltrates. Differential diagnosis includes CHF as well as multifocal pneumonia. Electronically Signed by Abraham Randolph MD 04/29/2019 08:22 A
[2019-04-29] MEDS ORDERED: POTASSIUM CHLORIDE 10 MEQ SR TABLET PO SCH (09:00)
[2019-04-29] MEDS ORDERED: SPIRONOLACTONE 50 MG TAB PO ONE (11:15)
--- NOTE | 2019-04-29 11:27 | IPNPDOC ---
Subjective Date Seen The patient was seen on 04/29/19. Subjective Chief Complaint/HPI Patient is seen in his room sitting upright, eating breakfast. He states he is feeling the same as yesterday. He states his shortness of breath persists and is not improved from yesterday. He does have a cough which is nonproductive. He denies any fevers, chills, chest pain.. He states he did not use his CPAP last night because it was not helped up by a respiratory therapist. Constitutional: Denies: Chills, Fever, Night Sweats ENT: Denies: Head Aches Pulmonary: Reports: Dyspnea, Cough (nonproductive) Cardiovascular: Denies: Chest Pain, Palpitations Gastrointestinal: Denies: Nausea, Vomiting, Abdominal Pain, Diarrhea Genitourinary: Denies: Dysuria, Frequency Musculoskeletal: Denies: Joint Pain, Muscle Pain Neurological: Denies: Weakness, Confusion Objective Physical Examination General Exam: Positive: Alert, Cooperative, No Acute Distress Eye Exam: Positive: PERRLA, Conjunctiva & lids normal ENT Exam: Positive: Atraumatic, Mucous membr. moist/pink Neck Exam: Positive: Supple Chest Exam: Positive: Clear to auscultation, Normal air movement; Negative: Wheezing Heart Exam: Positive: Rate Normal, Normal S1, Normal S2; Negative: Murmurs, Rubs Abdomen Exam: Positive: Normal bowel sounds, Soft; Negative: Tenderness Extremity Exam: Positive: Edema (2+ pitting in bilateral lower extremities), Normal pulses Skin Exam: Positive: Nl turgor and temperature Neuro Exam: Positive: Normal Speech, Strength at 5/5 X4 ext Psych Exam: Positive: Mental status NL, Mood NL, Oriented x 3 RAD Interpretation STUDY: CXR Rad Actions: Report Reviewed, Films Reviewed RAD Interpretation: Worse Assessment /Plan Assessment Patient is a 68-year-old male with a past medical history of diastolic heart failure, idiopathic pulmonary hemosiderosis, diabetes, hypertension, atrial fibrillation, currently on Coumadin, and iron deficiency anemia, who presented with shortness of breath after recently discontinuation of two diuretics. Plan/VTE VTE Prophylaxis Ordered?: Yes Plan 1. Acute respiratory failure likely secondary to diastolic heart failure Patient appears to be fluid overloaded due to discontinuation of two of his diuretics (due to hypokalemia). He received 100mg IV furosemide dose in the ED and was started on furosemide 40mg BID in addition to the 50mg spironolactone. He remains stable without improvement of his shortness of breath today. CXR has not improved and appears worsened today. Will switch to oral furosemide due to increased kidney function tests but continue at 40mg BID. Will increase his spironolactone to 100mg. Will add 2 liter fluid restriction to his diet. He continues to require oxygen at 3-4 liters via nasal cannula. He does not typically use oxygen supplementation at home. Will taper off supplemental oxygen as saturations improve 2. Hypokalemia Increased his potassium supplement to 40mg BID while he continues on furosemide. Will continue to monitor 3. Suspected pneumonia - s/p Zosyn as pt does not appear to have a pneumonia. - He has been afebrile with a minimally normal WBC count. - CXR findings likely attributed to fluid overload. - Will continue to monitor. 4. Atrial fibrillation Rate controlled. Continue home metoprolol. His INR is therapeutic at 2.71 today. Will give his dose of coumadin today and continue to monitor INR. 5. HTN Continue home medications 6. Iron deficiency anemia, chronic Continue iron supplement daily. 7. Hx of idiopathic pulmonary hemosiderosis No current complaint of hemoptysis. VS, I&O, 24H, Fishbone Vital Signs/I&O Vital Signs Date Time Temp Pulse Resp B/P (MAP) Pulse Ox O2 Delivery O2 Flow Rate FiO2 04/29/19 07:39 74 113/66 04/29/19 06:00 97.5 20 93 3.0 04/28/19 08:21 Nasal Cannula I&O- Last 24 Hours up to 6 AM 04/29/19 06:00 Intake Total 660 ml Output Total 1500 ml Balance -840 ml Laboratory Data 24H LABS Laboratory Tests 2 04/28/19 11:43: Bedside Glucose (Misc Panel) 175H 04/28/19 20:59: Bedside Glucose (Misc Panel) 108 04/29/19 05:54: Nucleated Red Blood Cells % (auto) 0.0, Prothrombin Time 28.6H, Prothromb Time International Ratio 2.71, Anion Gap 8, Glomerular Filtration Rate 44.9L, Blood Urea Nitrogen 31#H, Creatinine 1.63H, Sodium Level 145, Potassium Level 3.1#L, Chloride Level 112H, Carbon Dioxide Level 25, Calcium Level 8.4L, Aspartate Amino Transf (AST/SGOT) 17, Alanine Aminotransferase (ALT/SGPT) 10L, Alkaline Phosphatase 52, Total Bilirubin 0.8, Total Protein 6.6, Albumin 2.6L, Magnesium Level 2.1, Albumin/Globulin Ratio 0.65L CBC/BMP Laboratory Tests 04/29/19 05:54 Red Blood Count 3.67 L, Mean Corpuscular Volume 83.4, Mean Corpuscular Hemoglobin 26.4 L, Mean Corpuscular Hemoglobin Concent 31.7 L, Red Cell Distribution Width 17.5 H, Calcium Level 8.4 L, Aspartate Amino Transf (AST/SGOT) 17, Alanine Aminotransferase (ALT/SGPT) 10 L, Alkaline Phosphatase 52, Total Bilirubin 0.8, Total Protein 6.6, Albumin 2.6 L GME ATTESTATION GME ATTESTATION My faculty preceptor for this patient encounter was physically present during the encounter and was fully available. All aspects of the patient interview, examination, medical decision making process, and medical care plan development were reviewed and approved by the faculty preceptor. The faculty preceptor is aware and concurs with the plan as stated in the body of this note and will attest to such by his/her cosignature. ATTENDING NOTE I, Sylvester Wilhelm, have independently examined this patient and performed my own physical exam, as well as reviewed the documentation and edited where necessary. I have discussed in detail with the resident / student the findings and plan of treatment as documented by the resident / student and edited their note. I agree with their findings and treatment plan and have edited their documentation. I will continue to follow the patient during this hospital stay. FELICITA FOFANA PGY-1 Apr 29, 2019 11:27 SYLVESTER WILHELM MD Apr 29, 2019 14:58
[2019-04-29 14:00] VITALS: BP 108/61
[2019-04-29] MEDS: WARFARIN SOD 2.5 MG TAB PO SCH (16:46)
[2019-04-29] MEDS: FUROSEMIDE 40 MG TAB PO SCH (16:46)
[2019-04-29] MEDS: POTASSIUM CHLORIDE 10 MEQ SR TABLET PO SCH (20:25)
[2019-04-29] MEDS: TERAZOSIN 5 MG CAP PO SCH (20:25)
[2019-04-29] MEDS: SIMVASTATIN 40 MG TAB PO SCH (20:26)
[2019-04-29 22:00] VITALS: BP 111/60
[2019-04-30 05:40] LABS: HEMATOCRIT 30.6 % (42.0-52.0); HEMOGLOBIN 9.5 g/dl (13.5-17.5); MEAN CORPUSCULAR HEMOGLOBIN 25.5 pg (27.0-33.0); PLATELET COUNT, AUTOMATED 212 10^3/uL (150-450); RED BLOOD COUNT 3.73 10^6/uL (4.30-6.10); WHITE BLOOD COUNT 6.8 10^3/uL (4.0-10.0)
[2019-04-30 05:50] LABS: INR 2.23; PROTHROMBIN TIME 24.5 SECONDS (11.8-14.0)
[2019-04-30 05:59] LABS: CALCIUM LEVEL 8.4 MG/DL (8.8-10.2); CREATININE FOR GFR 1.45 MG/DL (0.70-1.30); GLOMERULAR FILTRATION RATE 51.4 (>49); POTASSIUM SERUM 3.6 MEQ/L (3.5-5.1)
[2019-04-30 06:00] VITALS: BP 114/69
[2019-04-30] MEDS: HumaLOG INSULIN (NovoLOG) PER UNIT SC SCH ×2 (06:58→12:00)
[2019-04-30] MEDS: SERTRALINE 100 MG TAB PO SCH (08:21)
[2019-04-30] MEDS: DOCUSATE SODIUM 100 MG CAP PO SCH ×2 (08:21→20:59)
[2019-04-30] MEDS: FERROUS GLUCONATE 324 MG TAB PO SCH ×2 (08:21→20:59)
[2019-04-30] MEDS: SPIRONOLACTONE 50 MG TAB PO SCH (08:21)
[2019-04-30] MEDS: glipiZIDE *2.5MG* 1/2 TABLET PO SCH (08:21)
[2019-04-30] MEDS: OMEPRAZOLE 20 MG CAP PO SCH (08:22)
[2019-04-30] MEDS: METOPROLOL TART 25 MG TABLET PO SCH ×2 (08:22→21:01)
[2019-04-30] MEDS: POTASSIUM CHLORIDE 10 MEQ SR TABLET PO SCH ×2 (08:22→21:00)
[2019-04-30] MEDS: buPROPion **SR TABLET** (ZYBAN) 150MG PO SCH (08:22)
[2019-04-30] MEDS: FINASTERIDE 5 MG TAB PO SCH (08:22)
[2019-04-30] MEDS: ENOXAPARIN 40 MG/0.4 ML SYRINGE (J1650) SC SCH (08:23)
[2019-04-30] MEDS: FUROSEMIDE 40 MG TAB PO SCH ×2 (08:23→16:54)
--- NOTE | 2019-04-30 10:09 | IPNPDOC ---
Subjective Date Seen The patient was seen on 04/30/19. Subjective Chief Complaint/HPI Patient is seen in his room laying in bed. He states he is feeling the same as yesterday and is frustrated that he does not feel better. He states his shortness of breath persists and is not improved from yesterday. He does have a cough and states he brought up a small amount of blood tinged sputum this morning. He denies coughing up any hayden blood. He denies any fevers, chills, chest pain. Constitutional: Denies: Chills, Fever, Night Sweats ENT: Denies: Head Aches Pulmonary: Reports: Dyspnea, Cough Cardiovascular: Reports: Edema; Denies: Chest Pain, Palpitations, Lt Headedness Gastrointestinal: Denies: Nausea, Vomiting, Abdominal Pain, Diarrhea Genitourinary: Denies: Dysuria, Frequency Musculoskeletal: Denies: Joint Pain, Muscle Pain Neurological: Denies: Weakness, Confusion Objective Physical Examination General Exam: Positive: Alert, Cooperative, No Acute Distress Eye Exam: Positive: PERRLA, Conjunctiva & lids normal ENT Exam: Positive: Atraumatic, Mucous membr. moist/pink Neck Exam: Positive: Supple Chest Exam: Positive: Clear to auscultation, Normal air movement; Negative: Wheezing Heart Exam: Positive: Rate Normal, Normal S1, Normal S2; Negative: Murmurs, Rubs Abdomen Exam: Positive: Normal bowel sounds, Soft; Negative: Tenderness Extremity Exam: Positive: Edema (pitting in bilateral lower extremities ), Normal pulses Skin Exam: Positive: Nl turgor and temperature Neuro Exam: Positive: Normal Speech, Strength at 5/5 X4 ext Psych Exam: Positive: Mental status NL, Mood NL, Oriented x 3 Assessment /Plan Assessment Patient is a 68-year-old male with a past medical history of diastolic heart failure, idiopathic pulmonary hemosiderosis, diabetes, hypertension, atrial fibrillation, currently on Coumadin, and iron deficiency anemia, who presented with shortness of breath after recently discontinuation of two diuretics. Plan/VTE VTE Prophylaxis Ordered?: Yes Plan 1. Acute respiratory failure likely secondary to diastolic heart failure - Patient appears to be fluid overloaded due to discontinuation of two of his diuretics (due to hypokalemia). He received 100mg IV furosemide dose in the ED and was started on furosemide 40mg BID in addition to the 50mg spironolactone. He remains stable without improvement of his shortness of breath today. - Continue furosemide 40mg BID and spironolactone 100mg - Add metolazone 2.5 mg today - Continue to monitor electrolyte levels, particularly potassium. Continue 40meq BID potassium supplement. - 2 liter fluid restriction to his diet. - He continues to require oxygen at 3-4 liters via nasal cannula. He does not typically use oxygen supplementation at home. Will taper off supplemental oxygen as saturations improve. 2. Hypokalemia - Continue 40meq BID potassium supplement and monitor 3. Suspected pneumonia - s/p Zosyn as pt does not appear to have a pneumonia. - He has been afebrile with a normal WBC count. - CXR findings likely attributed to fluid overload. - Continue to monitor. 4. Atrial fibrillation - Rate controlled. Continue home metoprolol. - His INR is therapeutic. Continue with his home dose of Coumadin and monitor INR 5. HTN - Continue home medications. Continue to monitor as we adjust his diuretics 6. Iron deficiency anemia, chronic - Continue iron supplement daily. 7. Hx of idiopathic pulmonary hemosiderosis - Blood tinged sputum today but no hayden hemoptysis. Continue to monitor H/H Disposition Pending clinical improvement VS, I&O, 24H, Fishbone Vital Signs/I&O Vital Signs Date Time Temp Pulse Resp B/P (MAP) Pulse Ox O2 Delivery O2 Flow Rate FiO2 04/30/19 08:22 20 114/69 04/30/19 06:00 97.8 75 92 3.0 04/28/19 08:21 Nasal Cannula I&O- Last 24 Hours up to 6 AM 04/30/19 05:59 Intake Total 1000 ml Output Total 1825 ml Balance -825 ml Laboratory Data 24H LABS Laboratory Tests 2 04/29/19 11:31: Bedside Glucose (Misc Panel) 133H 04/30/19 04:57: Nucleated Red Blood Cells % (auto) 0.0, Prothrombin Time 24.5H, Prothromb Time International Ratio 2.23, Anion Gap 7L, Glomerular Filtration Rate 51.4, Blood Urea Nitrogen 27H, Creatinine 1.45H, Sodium Level 144, Potassium Level 3.6, Chloride Level 111H, Carbon Dioxide Level 26, Calcium Level 8.4L CBC/BMP Laboratory Tests 04/30/19 04:57 Red Blood Count 3.73 L, Mean Corpuscular Volume 82.0, Mean Corpuscular Hemoglobin 25.5 L, Mean Corpuscular Hemoglobin Concent 31.0 L, Red Cell Distribution Width 17.3 H, Calcium Level 8.4 L GME ATTESTATION GME ATTESTATION My faculty preceptor for this patient encounter was physically present during the encounter and was fully available. All aspects of the patient interview, examination, medical decision making process, and medical care plan development were reviewed and approved by the faculty preceptor. The faculty preceptor is aware and concurs with the plan as stated in the body of this note and will attest to such by his/her cosignature. ATTENDING NOTE I, Sylvester Wilhelm, have independently examined this patient and performed my own physical exam, as well as reviewed the documentation and edited where necessary. I have discussed in detail with the resident / student the findings and plan of treatment as documented by the resident / student and edited their note. I agree with their findings and treatment plan and have edited their documentation. I will continue to follow the patient during this hospital stay. FELICITA FOFANA PGY-1 Apr 30, 2019 10:09 SYLVESTER WILHELM MD Apr 30, 2019 16:07
[2019-04-30] MEDS: metOLazone 2.5 MG TAB PO SCH (10:17)
[2019-04-30 14:00] VITALS: BP 127/68
[2019-04-30] MEDS: WARFARIN SOD 2.5 MG TAB PO SCH (16:54)
[2019-04-30] MEDS: TERAZOSIN 5 MG CAP PO SCH (21:00)
[2019-04-30] MEDS: SIMVASTATIN 40 MG TAB PO SCH (21:02)
[2019-04-30 22:00] VITALS: BP 127/73
[2019-05-01 05:28] LABS: HEMATOCRIT 32.9 % (42.0-52.0); HEMOGLOBIN 10.4 g/dl (13.5-17.5); MEAN CORPUSCULAR HEMOGLOBIN 26.3 pg (27.0-33.0); MEAN CORPUSCULAR HGB CONC 31.6 g/dl (32.0-36.5); MEAN CORPUSCULAR VOLUME 83.1 fl (80.0-96.0); PLATELET COUNT, AUTOMATED 231 10^3/uL (150-450); RED BLOOD COUNT 3.96 10^6/uL (4.30-6.10); WHITE BLOOD COUNT 7.5 10^3/uL (4.0-10.0)
[2019-05-01 05:38] LABS: INR 2.18; PROTHROMBIN TIME 24.1 SECONDS (11.8-14.0)
[2019-05-01 05:46] LABS: CALCIUM LEVEL 8.6 MG/DL (8.8-10.2); CREATININE FOR GFR 1.5 MG/DL (0.70-1.30); GLOMERULAR FILTRATION RATE 49.4 (>49); POTASSIUM SERUM 3.9 MEQ/L (3.5-5.1)
[2019-05-01 06:00] VITALS: BP 104/51
[2019-05-01] MEDS: POTASSIUM CHLORIDE 10 MEQ SR TABLET PO SCH ×2 (08:05→21:39)
[2019-05-01] MEDS: metOLazone 2.5 MG TAB PO SCH (08:05)
[2019-05-01] MEDS: buPROPion **SR TABLET** (ZYBAN) 150MG PO SCH (08:05)
[2019-05-01] MEDS: glipiZIDE *2.5MG* 1/2 TABLET PO SCH (08:05)
[2019-05-01] MEDS: FINASTERIDE 5 MG TAB PO SCH (08:09)
[2019-05-01] MEDS: OMEPRAZOLE 20 MG CAP PO SCH (08:09)
[2019-05-01] MEDS: FERROUS GLUCONATE 324 MG TAB PO SCH ×2 (08:10→21:38)
[2019-05-01] MEDS: DOCUSATE SODIUM 100 MG CAP PO SCH ×2 (08:10→21:38)
[2019-05-01] MEDS: METOPROLOL TART 25 MG TABLET PO SCH ×2 (08:10→21:39)
[2019-05-01] MEDS: SERTRALINE 100 MG TAB PO SCH (08:10)
[2019-05-01] MEDS: FUROSEMIDE 40 MG TAB PO SCH ×2 (08:10→16:28)
[2019-05-01] MEDS: SPIRONOLACTONE 50 MG TAB PO SCH (08:10)
--- NOTE | 2019-05-01 10:15 | IPNPDOC ---
Subjective Date Seen The patient was seen on 05/01/19. Subjective Chief Complaint/HPI Patient is seen in his room sitting up in his chair. He states he is feeling the same as yesterday and is frustrated that he does not feel better. He states his shortness of breath persists and is not improved from yesterday. He does have a cough which has been mostly nonproductive. He denies any fevers, chills, chest pain. Constitutional: Denies: Chills, Fever, Night Sweats ENT: Denies: Head Aches Pulmonary: Reports: Dyspnea, Cough (nonproductive) Cardiovascular: Reports: Edema; Denies: Chest Pain, Palpitations, Lt Headedness Gastrointestinal: Denies: Nausea, Vomiting, Abdominal Pain, Diarrhea, Constipation Genitourinary: Denies: Dysuria, Frequency Musculoskeletal: Denies: Joint Pain, Muscle Pain Neurological: Denies: Weakness, Confusion Psych: Reports: Mood Normal Objective Physical Examination General Exam: Positive: Alert, Cooperative, No Acute Distress Eye Exam: Positive: PERRLA, Conjunctiva & lids normal ENT Exam: Positive: Atraumatic, Mucous membr. moist/pink Neck Exam: Positive: Supple Chest Exam: Positive: Clear to auscultation, Normal air movement; Negative: Wheezing Heart Exam: Positive: Rate Normal, Normal S1, Normal S2; Negative: Murmurs, Rubs Abdomen Exam: Positive: Normal bowel sounds, Soft; Negative: Tenderness Extremity Exam: Positive: Edema (pitting in bilateral lower extremities, L worse than R, improving ), Normal pulses Skin Exam: Positive: Nl turgor and temperature Neuro Exam: Positive: Normal Speech, Strength at 5/5 X4 ext Psych Exam: Positive: Mental status NL, Mood NL, Oriented x 3 Assessment /Plan Assessment Patient is a 68-year-old male with a past medical history of diastolic heart f ailure, idiopathic pulmonary hemosiderosis, diabetes, hypertension, atrial fibrillation, currently on Coumadin, and iron deficiency anemia, who presented with shortness of breath after recently discontinuation of two diuretics. Plan/VTE VTE Prophylaxis Ordered?: Yes Plan 1. Acute respiratory failure likely secondary to diastolic heart failure - Patient appears to be fluid overloaded due to discontinuation of two of his diuretics (due to hypokalemia). He received 100mg IV furosemide dose in the ED and was started on furosemide 40mg BID in addition to the 50mg spironolactone - Remains stable without improvement of his shortness of breath - Continue furosemide 40mg BID, spironolactone 100mg, and metolazone 2.5 mg - Continue to monitor electrolyte levels, particularly potassium. Continue 40meq BID potassium supplement. - 2 liter fluid restriction - He continues to require oxygen at 3L via nasal cannula. He does not typically use oxygen supplementation at home. Will taper off supplemental oxygen as saturations improve. 2. Hypokalemia - Improved. Continue 40meq BID potassium supplement and monitor 3. Suspected pneumonia - s/p Zosyn as pt does not appear to have a pneumonia. - He has been afebrile with a normal WBC count. - CXR findings likely attributed to fluid overload. - Continue to monitor. 4. Atrial fibrillation - Rate controlled. Continue home metoprolol. - His INR is therapeutic. Continue with his home dose of Coumadin and monitor INR 5. HTN - Continue home medications. Continue to monitor as we adjust his diuretics 6. Iron deficiency anemia, chronic - Stable - Continue iron supplement daily. 7. Hx of idiopathic pulmonary hemosiderosis - No hemoptysis. Continue to monitor H/H 8.. Chronic kidney disease (Stage 3) - Patient had slight bump in Cr with IV diuretics; has been adjusted to oral - Cr appears to have improved to baseline Disposition Pending clinical improvement VS, I&O, 24H, [facility] Vital Signs/I&O Vital Signs Date Time Temp Pulse Resp B/P (MAP) Pulse Ox O2 Delivery O2 Flow Rate FiO2 05/01/19 09:00 3.0 05/01/19 08:10 66 99/58 05/01/19 06:00 97.6 20 93 04/28/19 08:21 Nasal Cannula I&O- Last 24 Hours up to 6 AM 05/01/19 06:00 Intake Total 1300 ml Output Total 3040 ml Balance -1740 ml Laboratory Data 24H LABS Laboratory Tests 2 04/30/19 11:57: Bedside Glucose (Misc Panel) 105 05/01/19 05:11: Nucleated Red Blood Cells % (auto) 0.0, Prothrombin Time 24.1H, Prothromb Time International Ratio 2.18, Anion Gap 9, Glomerular Filtration Rate 49.4, Blood Urea Nitrogen 25H, Creatinine 1.50H, Sodium Level 142, Potassium Level 3.9, Chloride Level 107, Carbon Dioxide Level 26, Calcium Level 8.6L CBC/BMP Laboratory Tests 05/01/19 05:11 Red Blood Count 3.96 L, Mean Corpuscular Volume 83.1, Mean Corpuscular Hemoglobin 26.3 L, Mean Corpuscular Hemoglobin Concent 31.6 L, Red Cell Distribution Width 17.1 H, Calcium Level 8.6 L GME ATTESTATION GME ATTESTATION My faculty preceptor for this patient encounter was physically present during the encounter and was fully available. All aspects of the patient interview, examination, medical decision making process, and medical care plan development were reviewed and approved by the faculty preceptor. The faculty preceptor is aware and concurs with the plan as stated in the body of this note and will attest to such by his/her cosignature. ATTENDING NOTE I, Sylvester Wilhelm, have independently examined this patient and performed my own physical exam, as well as reviewed the documentation and edited where necessary. I have discussed in detail with the resident / student the findings and plan of treatment as documented by the resident / student and edited their note. I agree with their findings and treatment plan and have edited their documentation. I will continue to follow the patient during this hospital stay. FELICITA FOFANA PGY-1 May 01, 2019 10:15 SYLVESTER WILHELM MD May 01, 2019 15:02
[2019-05-01 14:00] VITALS: BP 118/78
[2019-05-01] MEDS: WARFARIN SOD 2.5 MG TAB PO SCH (16:29)
[2019-05-01] MEDS: SIMVASTATIN 40 MG TAB PO SCH (21:39)
[2019-05-01] MEDS: TERAZOSIN 5 MG CAP PO SCH (21:40)
[2019-05-01 22:00] VITALS: BP 119/76
[2019-05-02 06:00] VITALS: BP 118/76
[2019-05-02 06:53] LABS: HEMATOCRIT 34.3 % (42.0-52.0); MEAN CORPUSCULAR HEMOGLOBIN 25.4 pg (27.0-33.0); MEAN CORPUSCULAR HGB CONC 32.1 g/dl (32.0-36.5); MEAN CORPUSCULAR VOLUME 79.2 fl (80.0-96.0); PLATELET COUNT, AUTOMATED 283 10^3/uL (150-450); RED BLOOD COUNT 4.33 10^6/uL (4.30-6.10); WHITE BLOOD COUNT 8.9 10^3/uL (4.0-10.0)
[2019-05-02 07:17] LABS: INR 2.16; PROTHROMBIN TIME 23.9 SECONDS (11.8-14.0)
[2019-05-02 07:20] LABS: CALCIUM LEVEL 9.3 MG/DL (8.8-10.2); CREATININE FOR GFR 1.67 MG/DL (0.70-1.30); GLOMERULAR FILTRATION RATE 43.6 (>49); POTASSIUM SERUM 3.9 MEQ/L (3.5-5.1)
[2019-05-02] MEDS: glipiZIDE *2.5MG* 1/2 TABLET PO SCH (08:23)
[2019-05-02] MEDS: OMEPRAZOLE 20 MG CAP PO SCH (08:23)
[2019-05-02] MEDS: FINASTERIDE 5 MG TAB PO SCH (08:23)
[2019-05-02] MEDS: METOPROLOL TART 25 MG TABLET PO SCH ×2 (08:24→20:29)
[2019-05-02] MEDS: FERROUS GLUCONATE 324 MG TAB PO SCH ×2 (08:25→20:30)
[2019-05-02] MEDS: metOLazone 2.5 MG TAB PO SCH (08:25)
[2019-05-02] MEDS: SERTRALINE 100 MG TAB PO SCH (08:25)
[2019-05-02] MEDS: buPROPion **SR TABLET** (ZYBAN) 150MG PO SCH (08:25)
[2019-05-02] MEDS: SPIRONOLACTONE 50 MG TAB PO SCH (08:25)
[2019-05-02] MEDS: FUROSEMIDE 40 MG TAB PO SCH ×2 (08:25→17:09)
[2019-05-02] MEDS: DOCUSATE SODIUM 100 MG CAP PO SCH ×2 (08:26→20:29)
[2019-05-02] MEDS: POTASSIUM CHLORIDE 10 MEQ SR TABLET PO SCH ×2 (08:26→20:30)
[2019-05-02] MEDS ORDERED: PILL CUTTER 1 EACH XX PRN (08:45)
--- NOTE | 2019-05-02 10:05 | IPNPDOC ---
Subjective Date Seen The patient was seen on 05/02/19. Subjective Chief Complaint/HPI Patient is seen sitting comfortably in his chair. He states he feels some improvement today, but remains frustrated that he is not improving faster. He states he was able to come off of the oxygen yesterday for some period but had difficulty when he would get up to use the bathroom. He continues to have a mild cough which is nonproductive. He denies any fevers, chills or chest pain. Constitutional: Denies: Chills, Fever ENT: Denies: Head Aches Pulmonary: Reports: Dyspnea, Cough Cardiovascular: Denies: Chest Pain, Palpitations, Lt Headedness Gastrointestinal: Denies: Nausea, Vomiting, Abdominal Pain, Diarrhea Genitourinary: Denies: Dysuria Musculoskeletal: Denies: Joint Pain, Muscle Pain Neurological: Denies: Weakness, Confusion Psych: Reports: Mood Normal Objective Physical Examination General Exam: Positive: Alert, Cooperative, No Acute Distress Eye Exam: Positive: PERRLA, Conjunctiva & lids normal ENT Exam: Positive: Atraumatic, Mucous membr. moist/pink Neck Exam: Positive: Supple; Negative: JVD Chest Exam: Positive: Clear to auscultation, Normal air movement; Negative: Wheezing Heart Exam: Positive: Rate Normal, Normal S1, Normal S2; Negative: Murmurs, Rubs Abdomen Exam: Positive: Normal bowel sounds, Soft; Negative: Tenderness Extremity Exam: Positive: Edema (mild in the ankles, improved from yesterday), Normal pulses Skin Exam: Positive: Nl turgor and temperature Neuro Exam: Positive: Normal Speech, Strength at 5/5 X4 ext Psych Exam: Positive: Mental status NL, Mood NL, Oriented x 3 Assessment /Plan Assessment Patient is a 68-year-old male with a past medical history of diastolic heart failure, idiopathic pulmonary hemosiderosis, diabetes, hypertension, atrial fibrillation, currently on Coumadin, and iron deficiency anemia, who presented with shortness of breath after recently discontinuation of two diuretics. Plan/VTE VTE Prophylaxis Ordered?: Yes Plan 1. Acute respiratory failure likely secondary to diastolic heart failure - Patient appears to be fluid overloaded due to discontinuation of two of his diuretics (due to hypokalemia). He received 100mg IV furosemide dose in the ED and was started on furosemide 40mg BID in addition to the 50mg spironolactone - Remains stable without improvement of his shortness of breath - Continue furosemide 40mg BID, spironolactone 100mg, and metolazone 2.5 mg - Continue to monitor electrolyte levels, particularly potassium. Continue 40meq BID potassium supplement. - 2 liter fluid restriction Continue to monitor I/O daily. He has been net negative about 1 L each day since admission. His lower extremity edema has improved since admission. He appears to be diuresing well. - He continues to require oxygen at 3L via nasal cannula. He does not typically use oxygen supplementation at home. Will taper off supplemental oxygen and monitor O2 saturation. 2. Hypokalemia - Improved. Continue 40meq BID potassium supplement and monitor 3. Suspected pneumonia - s/p Zosyn as pt does not appear to have a pneumonia. - He has been afebrile with a normal WBC count. - CXR findings likely attributed to fluid overload. - Continue to monitor. 4. Atrial fibrillation - Rate controlled. Continue home metoprolol. - His INR is therapeutic. Continue with his home dose of Coumadin and monitor INR 5. HTN - Continue home medications. Continue to monitor as we adjust his diuretics 6. Iron deficiency anemia, chronic - Stable - Continue iron supplement daily. 7. Hx of idiopathic pulmonary hemosiderosis - No hemoptysis. Continue to monitor H/H 8.. Chronic kidney disease (Stage 3) - Patient had slight bump in Cr with IV diuretics; has been adjusted to oral - Cr appears to have improved to baseline, will continue to monitor Disposition Home with services once he is off oxygen supplementation VS, I&O, 24H, [facility] Vital Signs/I&O Vital Signs Date Time Temp Pulse Resp B/P (MAP) Pulse Ox O2 Delivery O2 Flow Rate FiO2 05/02/19 08:45 91 16 97 2.0 05/02/19 08:24 118/76 05/02/19 06:00 97.0 04/28/19 08:21 Nasal Cannula I&O- Last 24 Hours up to 6 AM 05/02/19 06:00 Intake Total 1560 ml Output Total 2575 ml Balance -1015 ml Laboratory Data 24H LABS Laboratory Tests 2 05/02/19 06:35: Nucleated Red Blood Cells % (auto) 0.0, Prothrombin Time 23.9H, Prothromb Time International Ratio 2.16, Anion Gap 8, Glomerular Filtration Rate 43.6L, Blood Urea Nitrogen 27H, Creatinine 1.67H, Sodium Level 138, Potassium Level 3.9, Chloride Level 104, Carbon Dioxide Level 26, Calcium Level 9.3 CBC/BMP Laboratory Tests 05/02/19 06:35 Red Blood Count 4.33, Mean Corpuscular Volume 79.2 L, Mean Corpuscular Hemoglobin 25.4 L, Mean Corpuscular Hemoglobin Concent 32.1, Red Cell Distributi on Width 16.7 H, Calcium Level 9.3 GME ATTESTATION GME ATTESTATION My faculty preceptor for this patient encounter was physically present during the encounter and was fully available. All aspects of the patient interview, examination, medical decision making process, and medical care plan development were reviewed and approved by the faculty preceptor. The faculty preceptor is aware and concurs with the plan as stated in the body of this note and will attest to such by his/her cosignature. ATTENDING NOTE I, Sylvester Wilhelm, have independently examined this patient and performed my own physical exam, as well as reviewed the documentation and edited where necessary. I have discussed in detail with the resident / student the findings and plan of treatment as documented by the resident / student and edited their note. I agree with their findings and treatment plan and have edited their documentation. I will continue to follow the patient during this hospital stay. FELICITA FOFANA PGY-1 May 02, 2019 10:05 SYLVESTER WILHELM MD May 02, 2019 17:07
[2019-05-02 14:00] VITALS: BP 119/76
[2019-05-02] MEDS: WARFARIN SOD 2.5 MG TAB PO SCH (17:09)
[2019-05-02] MEDS: SIMVASTATIN 40 MG TAB PO SCH (20:29)
[2019-05-02] MEDS: TERAZOSIN 5 MG CAP PO SCH (20:30)
[2019-05-02 22:00] VITALS: BP 129/87
[2019-05-03 06:38] LABS: HEMATOCRIT 36.3 % (42.0-52.0); HEMOGLOBIN 11.6 g/dl (13.5-17.5); MEAN CORPUSCULAR HEMOGLOBIN 25.4 pg (27.0-33.0); MEAN CORPUSCULAR VOLUME 79.6 fl (80.0-96.0); PLATELET COUNT, AUTOMATED 309 10^3/uL (150-450); RED BLOOD COUNT 4.56 10^6/uL (4.30-6.10); WHITE BLOOD COUNT 9.2 10^3/uL (4.0-10.0)
[2019-05-03 06:49] LABS: INR 2.23; PROTHROMBIN TIME 24.5 SECONDS (11.8-14.0)
[2019-05-03 07:05] LABS: CALCIUM LEVEL 9.6 MG/DL (8.8-10.2); CREATININE FOR GFR 1.91 MG/DL (0.70-1.30); GLOMERULAR FILTRATION RATE 37.4 (>49); POTASSIUM SERUM 3.7 MEQ/L (3.5-5.1)
[2019-05-03] MEDS: metOLazone 2.5 MG TAB PO SCH (08:26)
[2019-05-03] MEDS: glipiZIDE *2.5MG* 1/2 TABLET PO SCH (08:27)
[2019-05-03] MEDS: buPROPion **SR TABLET** (ZYBAN) 150MG PO SCH (08:27)
[2019-05-03] MEDS: OMEPRAZOLE 20 MG CAP PO SCH (08:27)
[2019-05-03] MEDS: FINASTERIDE 5 MG TAB PO SCH (08:28)
[2019-05-03] MEDS: DOCUSATE SODIUM 100 MG CAP PO SCH ×2 (08:28→21:59)
[2019-05-03] MEDS: POTASSIUM CHLORIDE 10 MEQ SR TABLET PO SCH ×2 (08:28→22:00)
[2019-05-03] MEDS: METOPROLOL TART 25 MG TABLET PO SCH ×2 (08:28→21:59)
[2019-05-03] MEDS: FUROSEMIDE 40 MG TAB PO SCH (08:28)
[2019-05-03] MEDS: SPIRONOLACTONE 50 MG TAB PO SCH (08:29)
[2019-05-03] MEDS: SERTRALINE 100 MG TAB PO SCH (08:29)
[2019-05-03] MEDS: FERROUS GLUCONATE 324 MG TAB PO SCH ×2 (08:29→22:00)
--- NOTE | 2019-05-03 10:38 | REP ---
Clinical: Fluid overload. Technique: PA and lateral. Comparison: 04/29/2019. Findings: Stable cardiomegaly. Perihilar and basilar opacities along with indistinct pulmonary vasculature again noted but improved when compared to prior examination. No effusion. Skeletal structures stable. Impression: Improved aeration. Continued evidence for pulmonary vascular congestion and perihilar/basilar opacities decreased from prior examination. Electronically Signed by Abraham Randolph MD 05/03/2019 10:30 A
[2019-05-03 14:00] VITALS: BP 164/97
--- NOTE | 2019-05-03 14:32 | IPNPDOC ---
Text Note Date of Service The patient was seen on 05/03/19. NOTE Subjective: Patient was seen and examined at the bedside. Patient reports that his breathing is doing slightly better. . He is off supplemental oxygen. . He denies any chest pain, palpitations or cough. Patient denies nausea, vomiting, abdominal pain, constipation, discomfort with urination. Objective: Vitals (See below) General: Lying in bed, no acute distress, comfortable, Awake / Alert HEENT: NC, AT CVS: RRR, +S1S2 Lungs: Fair air entry b/l, -w/r/r Abdomen: Soft, ND, NT Extremities: - Edema, - Calf tenderness Assessment and plan: Acute hypoxic respiratory failure - likely 2/2 decompensated diastolic CHF - Patient presented to the emergency room with complaints of shortness of breath after he was recently discharged - Patient's recent admission was for hypokalemia and patient was subsequently discharged without any diuretic therapy - Clinically patient has had significant improvement throughout the hospital course - Has been taken off of supplemental oxygen - Patient has remained negative fluid balance - CXR 05/03: Improved aeration. Continued evidence for pulmonary vascular congestion and perihilar/basilar opacities decreased from prior examination. - Continue with spironolactone, furosemide, metolazone s/p Hypokalemia - Will c/w Supplementation s/p Suspected pneumonia - off antibiotics Atrial fibrillation - Patient remains rate controlled - c/w metoprolol - c/w full anticoagulation with Coumadin HTN - Blood pressure appears well controlled - c/w metoprolol, spironolactone, furosemide, metolazone Iron deficiency anemia, chronic - Stable - c/w iron supplementation Hx of idiopathic pulmonary hemosiderosis - No hemoptysis reported - Hemoglobin appears stable CKD3 - Creatinine baseline of approximately - Creatinine has had a slight elevation this morning; will hold afternoon dose NIDDM2 - c/w Glipizide Mood disorder - c/w Sertraline and Bupropion BPH - c/w Finasteride GERD - c/w Omeprazole DVT prophylaxis - c/w full anticoagulation with Coumadin Disposition: - Home with services once he is off oxygen supplementation - Anticipate discharge within 24 hours VS,Fishbone, I+O VS, Fishbone, I+O Laboratory Tests 05/03/19 06:02 Red Blood Count 4.56, Mean Corpuscular Volume 79.6 L, Mean Corpuscular Hemoglobin 25.4 L, Mean Corpuscular Hemoglobin Concent 32.0, Red Cell Distribution Width 16.7 H, Calcium Level 9.6 Vital Signs Date Time Temp Pulse Resp B/P (MAP) Pulse Ox O2 Delivery O2 Flow Rate FiO2 05/03/19 08:28 64 129/87 05/03/19 06:00 96.4 18 96 1.0 04/28/19 08:21 Nasal Cannula I&O- Last 24 Hours up to 6 AM 05/03/19 06:00 Intake Total 550 ml Output Total 1715 ml Balance -1165 ml MEENU WILHELM MD May 03, 2019 14:32
[2019-05-03] MEDS: NYSTATIN 100,000 UNITS/GM TOPICAL PWD 15 GM TOP SCH ×2 (15:00→22:01)
[2019-05-03] MEDS: WARFARIN SOD 2.5 MG TAB PO SCH (16:17)
[2019-05-03] MEDS: SIMVASTATIN 40 MG TAB PO SCH (21:59)
[2019-05-03 22:00] VITALS: BP 133/97
[2019-05-03] MEDS: TERAZOSIN 5 MG CAP PO SCH (22:00)
[2019-05-04 05:18] LABS: HEMATOCRIT 36.7 % (42.0-52.0); HEMOGLOBIN 11.8 g/dl (13.5-17.5); MEAN CORPUSCULAR HGB CONC 32.2 g/dl (32.0-36.5); PLATELET COUNT, AUTOMATED 289 10^3/uL (150-450); RED BLOOD COUNT 4.53 10^6/uL (4.30-6.10)
[2019-05-04 05:32] LABS: CALCIUM LEVEL 9.2 MG/DL (8.8-10.2); CREATININE FOR GFR 2.19 MG/DL (0.70-1.30); GLOMERULAR FILTRATION RATE 31.9 (>49); POTASSIUM SERUM 3.9 MEQ/L (3.5-5.1)
[2019-05-04 06:00] VITALS: BP 147/55
[2019-05-04 08:03] LABS: INR 2.58; PROTHROMBIN TIME 27.5 SECONDS (11.8-14.0)
[2019-05-04] MEDS: SERTRALINE 100 MG TAB PO SCH (09:27)
[2019-05-04] MEDS: FERROUS GLUCONATE 324 MG TAB PO SCH (09:27)
[2019-05-04 09:28] VITALS: BP 118/85
[2019-05-04] MEDS: FINASTERIDE 5 MG TAB PO SCH (09:28)
[2019-05-04] MEDS: DOCUSATE SODIUM 100 MG CAP PO SCH (09:28)
[2019-05-04] MEDS: SPIRONOLACTONE 50 MG TAB PO SCH (09:28)
[2019-05-04] MEDS: OMEPRAZOLE 20 MG CAP PO SCH (09:28)
[2019-05-04] MEDS: POTASSIUM CHLORIDE 10 MEQ SR TABLET PO SCH (09:28)
[2019-05-04] MEDS: METOPROLOL TART 25 MG TABLET PO SCH (09:28)
[2019-05-04] MEDS: buPROPion **SR TABLET** (ZYBAN) 150MG PO SCH (09:29)
[2019-05-04] MEDS: metOLazone 2.5 MG TAB PO SCH (09:29)
[2019-05-04] MEDS: glipiZIDE *2.5MG* 1/2 TABLET PO SCH (09:29)
[2019-05-04] MEDS: NYSTATIN 100,000 UNITS/GM TOPICAL PWD 15 GM TOP SCH (09:29)
[2019-05-04] MEDS ORDERED: COUM2.5T17 PO (10:54)
[2019-05-04] MEDS ORDERED: ALDA50TA2 PO (10:54)
[2019-05-04] MEDS ORDERED: KLOR10TA76 PO (10:54)
[2019-05-04] MEDS ORDERED: METO25TA PO (10:54)
[2019-05-04] MEDS ORDERED: FURO40TA2 PO (11:16)
[2019-05-04] MEDS ORDERED: K-TA10TA PO (11:16)
--- NOTE | 2019-05-04 19:19 | DS.PDOC ---
Discharge Summary General Date of Admission Apr 28, 2019 at 00:15 Date of Discharge May 04, 2019 Attending Physician: MEENU WILHELM MD Discharge Summary PCP: Huy Juarez PA-C PROCEDURES PERFORMED DURING STAY: None. ADMITTING DIAGNOSES: 1. Pneumonia, suspected 2. Decompensated diastolic CHF. 3. Hypokalemia. 4. Atrial fibrillation. 5. Hypertension. 6. Iron deficient anemia, chronic. 7. History idiopathic pulmonary hemosiderosis. 8. CKD stage III 9. Diabetes mellitus DISCHARGE DIAGNOSES: 1. Decompensated diastolic CHF. 2. Hypokalemia, resolved. 3. Atrial fibrillation. 4. Hypertension. 5. Iron deficiency anemia, chronic. 6. History of idiopathic pulmonary hemosiderosis. 7. CKD stage III 8. Diabetes mellitus COMPLICATIONS/CHIEF COMPLAINT: CHF Exacerbation; Pneumonia. HISTORY OF PRESENT ILLNESS: 68-year-old male with a past medical history of hypertension, diabetes mellitus, idiopathic pulmonary hemosiderosis, atrial fibrillation, hypertension, presented with increasing shortness of breath over the past few days. He had been admitted to the hospital on 04/21 due to a low potassium level and an episode of nonsustained ventricular tachycardia. He was subsequently discharged on 04/24 after his potassium level was corrected and he's had no further episodes of ventricular tachycardia on telemetry. Upon discharge. 2 of his diuretic medications, furosemide and metolazone, were stopped. Over the next 3 days. His shortness of breath, developed and became increasingly worse. He also noticed that his legs were becoming more swollen. He admitted to a slight cough which was nonproductive. He denied any fevers, chills or sputum production. In the ED, he required supplemental oxygenation to keep his saturations above 90%. He does not typically use oxygen at home. HOSPITAL COURSE: The patient was admitted to the medical surgical floor. He received 100 mg IV furosemide in the ED and was started on 40 mg IV furosemide twice a day with potassium supplementation. He was initially started on Zosyn to treat suspected pneumonia. However, he had been afebrile with a normal WBC count and his CXR findings were better attributed to his acute decompensation of CHF and his antibiotics were discontinued after one day. Patient was continued on spironolactone and increased dose of 100 mg and was started back on metolazone 2.5 mg. He continued to improve clinically and had a net negative balance daily. He was able to wean off supplemental oxygen. Continue to monitor his potassium level and he is maintained on potassium supplementation 40 mg daily. His most recent chest x-ray showed improved aeration. Also monitored his INR and adjust his Coumadin dose. He was previously taking 5 mg daily, but has been stable with INR between 2 and 3 at a dose of 2.5 mg daily. He also has a history of CKD stage III. His creatinine did rise slightly. The use of IV furosemide and improved when he was switched to by mouth. His creatinine did being to rise again on the PO furosemide, which he will follow up with in the outpatient setting. Today he is stable and appears safe for discharge. DISCHARGE MEDICATIONS: Please see below. ALLERGIES: Please see below. PHYSICAL EXAMINATION ON DISCHARGE: VITAL SIGNS: Please see below. GENERAL: Alert, sitting comfortably in a chair, no acute respiratory distress HEENT: PERRLA. EOMI. moist mucous membranes. NECK: Supple, no JVD, no lymphadenopathy CARDIOVASCULAR EXAMINATION: Regular rate and rhythm. Normal S1 and S2. No murmurs, rubs or gallops RESPIRATORY EXAMINATION: Clear to auscultation bilaterally. No wheezes, rhonchi or rales ABDOMINAL EXAMINATION: Soft, nontender, nondistended. Bowel sounds present EXTREMITIES: No edema. Pulses 2+/4 in the radial and dorsalis pedis arteries. No calf tenderness SKIN: [place], warm, dry NEUROLOGICAL EXAMINATION: Alert and oriented 3 to person, place, time. Cranial nerves III-XII grossly intact. No focal deficits PSYCHIATRIC EXAMINATION: Normal mood and affect LABORATORY DATA: Please see below. IMAGING: - CXR 05/03: Improved aeration. Continued evidence for pulmonary vascular congest ion and perihilar/basilar opacities decreased from prior examination. - CXR 04/29: Increasing bilateral alveolar and interstitial infiltrates. - CXR 04/27: Worsening bilateral perihilar infiltrates - Vascular U/S of bilateral LE 04/27: No sonographic evidence of deep vein thrombosis. PROGNOSIS: Good ACTIVITY: As tolerated DIET: As tolerated DISPOSITION: Home Health Service. DISCHARGE INSTRUCTIONS: 1. Please follow up with your PCP in 7-10 days 2. Please pickle sorter your new prescriptions for Metolazone, Furosemide, Spironolactone, Warfarin, and potassium supplement. 3. Please stop taking your previous home doses of Spironolactone, Warfar, and potassium supplement. 4. Please go to lab for blood test before you see your PCP for follow up ITEMS TO FOLLOWUP ON ON OUTPATIENT: 1. Acute exacerbation of CHF. 2. Hypokalemia. 3. CKD DISCHARGE CONDITION: Stable TIME SPENT ON DISCHARGE: Greater than 35 minutes. Vital Signs/I&Os Vital Signs Date Time Temp Pulse Resp B/P (MAP) Pulse Ox O2 Delivery O2 Flow Rate FiO2 05/04/19 09:28 102 118/85 05/04/19 06:00 96.1 20 97 05/03/19 06:00 1.0 04/28/19 08:21 Nasal Cannula I&O- Last 24 Hours up to 6 AM 05/04/19 06:00 Intake Total 480 ml Output Total 750 ml Balance -270 ml Laboratory Data Labs 24H Laboratory Tests 2 05/04/19 04:52: Nucleated Red Blood Cells % (auto) 0.0, Anion Gap 9, Glomerular Filtration Rate 31.9L, Blood Urea Nitrogen 35H, Creatinine 2.19H, Sodium Level 138, Potassium Level 3.9, Chloride Level 103, Carbon Dioxide Level 26, Calcium Level 9.2 05/04/19 07:01: Prothrombin Time 27.5H, Prothromb Time International Ratio 2.58 CBC/BMP Laboratory Tests 05/04/19 04:52 Red Blood Count 4.53, Mean Corpuscular Volume 81.0, Mean Corpuscular Hemoglobin 26.0 L, Mean Corpuscular Hemoglobin Concent 32.2, Red Cell Distribution Width 16.9 H, Calcium Level 9.2 Discharge Medications Scheduled Ascorbic Acid (Vitamin C) 250 Mg Tablet, 250 MG PO DAILY, (Reported) Bupropion Hcl (Bupropion HCl Sr) 150 Mg Tab, 150 MG PO DAILY, (Reported) Cholecalciferol (Vitamin D3) (Vitamin D3) 1,000 Unit Tab, 1,000 UNIT PO DAILY, (Reported) Docusate Sodium (Docusate Sodium) 100 Mg Cap, 200 MG PO BID, (Reported) Ferrous Gluconate (Ferrous Gluconate) 324 Mg Tab, 648 MG PO BID, (Reported) Finasteride (Finasteride) 5 Mg Tab, 5 MG PO DAILY, (Reported) Furosemide (Furosemide) 40 Mg Tablet, 40 MG PO DAILY Take 1 tablet daily Glipizide (Glipizide) 5 Mg Tab, 2.5 MG PO DAILY, (Reported) TAKES BEFORE BREAKFAST Metolazone (Metolazone) 2.5 Mg Tablet, 2.5 MG PO DAILY Take one tablet daily Metoprolol Tartrate (Metoprolol Tartrate) 25 Mg Tab, 12.5 MG PO BID, (Reported) Omeprazole (Omeprazole) 20 Mg Tab, 40 MG PO DAILY, (Reported) Potassium Chloride (K-Tab ER) 10 Meq Tablet.er, 4 TAB PO DAILY Take 4 tablets daily Sertraline HCl (Sertraline HCl) 100 Mg Tab, 200 MG PO DAILY, (Reported) Simvastatin (Zocor) 80 Mg Tablet, 40 MG PO QHS, (Reported) Spironolactone (Aldactone) 50 Mg Tablet, 100 MG PO DAILY Take 2 tablets daily Terazosin Hcl (Terazosin HCl) 10 Mg Cap, 10 MG PO QHS, (Reported) Warfarin Sodium (Coumadin) 2.5 Mg Tablet, 2.5 MG PO DAILY@17 Take 1 tablet daily at 5:00 PM Allergies Coded Allergies: albuterol (Verified Allergy, Unknown, 04/27/19) amlodipine (Verified Allergy, Unknown, 04/27/19) atenolol (Verified Allergy, Unknown, 04/27/19) FELICITA FOFANA PGY-1 May 04, 2019 17:09
== END 2019-05-04 16:02 | disposition home health service (06) | DRG 291 ==
LOC: M ED 21:17 → M ED INP 04-28 00:15 → M MSPAV 04-28 14:19
PROVIDERS: ADMIT Internal Medicine; ATTEND Internal Medicine
DX: I13.0 Hypertensive heart and chronic kidney disease with heart failure and stage 1 through stage 4 chronic kidney disease, or unspecified chronic kidney disease (principal); I50.31 Acute diastolic (congestive) heart failure; J96.01 Acute respiratory failure with hypoxia; J84.03 Idiopathic pulmonary hemosiderosis; E11.22 Type 2 diabetes mellitus with diabetic chronic kidney disease; I48.2 Chronic atrial fibrillation; D50.9 Iron deficiency anemia, unspecified; K44.9 Diaphragmatic hernia without obstruction or gangrene; F43.10 Post-traumatic stress disorder, unspecified; Z66 Do not resuscitate; F31.9 Bipolar disorder, unspecified; E83.10 Disorder of iron metabolism, unspecified; E87.6 Hypokalemia; Z89.022 Acquired absence of left finger(s); Z79.01 Long term (current) use of anticoagulants; Z79.84 Long term (current) use of oral hypoglycemic drugs; Z79.899 Other long term (current) drug therapy; Z88.8 Allergy status to other drugs, medicaments and biological substances

== ENCOUNTER 2019-05-13 17:23 | Emergency (ER) | payer OTHER, MEDICARE ==
[~2019-05-13] VITALS: Ht 177.8 cm; Wt 115.5 kg
[~2019-05-13 17:23] MED LIST changes: +K-TA10TA PO; +KLOR10TA76 PO; -WARFARIN SOD 5 MG TAB PO SCH
[2019-05-13 18:26] LABS: BASO # 0.1 10^3/uL (0.0-0.2); BASO % 0.6 % (0.0-1.0); EOS # 0.4 10^3/uL (0.0-0.50); EOS % 3.8 % (0.0-3.0); HEMATOCRIT 38.4 % (42.0-52.0); HEMOGLOBIN 12.6 g/dl (13.5-17.5); LYMPH # 1.8 10^3/uL (1.5-4.5); LYMPH % 18.9 % (24.0-44.0); MEAN CORPUSCULAR HEMOGLOBIN 26.2 pg (27.0-33.0); MEAN CORPUSCULAR HGB CONC 32.8 g/dl (32.0-36.5); MEAN CORPUSCULAR VOLUME 79.8 fl (80.0-96.0); MONO # 0.9 10^3/uL (0.0-0.8); MONO % 9.7 % (0.0-5.0); NEUTROPHILS # 6.5 10^3/uL (1.8-7.7); NEUTROPHILS % 66.4 % (36.0-66.0); PLATELET COUNT, AUTOMATED 255 10^3/uL (150-450); RED BLOOD COUNT 4.81 10^6/uL (4.30-6.10); WHITE BLOOD COUNT 9.7 10^3/uL (4.0-10.0)
[2019-05-13 18:57] LABS: BLOOD UREA NITROGEN 27 MG/DL (7-18); CARBON DIOXIDE LEVEL 29 MEQ/L (21-32); CHLORIDE LEVEL 102 MEQ/L (98-107); CK-MB VALUE MASS 1.3 NG/ML (<3.6); CPK CREATINE PHOSPHOKINASE 44 U/L (39-308); CREATININE FOR GFR 1.61 MG/DL (0.70-1.30); GLOMERULAR FILTRATION RATE 45.5 (>49); GLUCOSE, FASTING 100 MG/DL (70-100); MB/CK RELATIVE INDEX 2.95 (< OR =4); POTASSIUM SERUM 2.9 MEQ/L (3.5-5.1); SODIUM LEVEL 141 MEQ/L (136-145); TROPONIN I < 0.02 NG/ML (< 0.10)
[2019-05-13] MEDS ORDERED: POTASSIUM CHLORIDE 10 MEQ SR TABLET PO ONE (19:30)
[2019-05-13] MEDS ORDERED: POTA1TAB14 PO (20:49)
[2019-05-13 21:23] VITALS: BP 115/81
--- NOTE | 2019-05-15 05:45 | ECGEPIP ---
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
== END 2019-05-13 21:20 | disposition home or self-care (01) ==
LOC: M ED 17:23
DX: E87.6 Hypokalemia (principal); I48.91 Unspecified atrial fibrillation; I13.0 Hypertensive heart and chronic kidney disease with heart failure and stage 1 through stage 4 chronic kidney disease, or unspecified chronic kidney disease; I50.9 Heart failure, unspecified; E11.22 Type 2 diabetes mellitus with diabetic chronic kidney disease; N18.3 Chronic kidney disease, stage 3 (moderate); J98.8 Other specified respiratory disorders; Z88.8 Allergy status to other drugs, medicaments and biological substances; Z79.899 Other long term (current) drug therapy; Z79.01 Long term (current) use of anticoagulants

== ENCOUNTER 2019-06-19 23:06 | Inpatient (IN) | payer OTHER, MEDICARE ==
[~2019-06-19] VITALS: Ht 175.3 cm; Wt 117.9 kg
[2019-06-20 00:12] LABS: BASO % 0.2 % (0.0-1.0); EOS # 0.1 10^3/uL (0.0-0.5); EOS % 0.4 % (0.0-3.0); HEMATOCRIT 41.2 % (42.0-52.0); HEMOGLOBIN 13.1 g/dl (13.5-17.5); LYMPH # 0.9 10^3/uL (1.5-5.0); LYMPH % 5.6 % (24.0-44.0); MEAN CORPUSCULAR HEMOGLOBIN 25.8 pg (27.0-33.0); MEAN CORPUSCULAR HGB CONC 31.8 g/dl (32.0-36.5); MEAN CORPUSCULAR VOLUME 81.1 fl (80.0-96.0); MONO # 0.7 10^3/uL (0.0-0.8); MONO % 4.5 % (0.0-5.0); NEUTROPHILS # 13.5 10^3/uL (1.5-8.5); NEUTROPHILS % 88.5 % (36.0-66.0); PLATELET COUNT, AUTOMATED 191 10^3/uL (150-450); RED BLOOD COUNT 5.08 10^6/uL (4.30-6.10); WHITE BLOOD COUNT 15.3 10^3/uL (4.0-10.0)
[2019-06-20 00:39] LABS: BLOOD UREA NITROGEN 34 MG/DL (7-18); CALCIUM LEVEL 8.9 MG/DL (8.8-10.2); CARBON DIOXIDE LEVEL 24 MEQ/L (21-32); CHLORIDE LEVEL 103 MEQ/L (98-107); CK-MB VALUE MASS 1.5 NG/ML (<3.6); CPK CREATINE PHOSPHOKINASE 76 U/L (39-308); CREATININE FOR GFR 1.83 MG/DL (0.70-1.30); GLOMERULAR FILTRATION RATE 39.2 (>42); GLUCOSE, FASTING 116 MG/DL (70-100); MB/CK RELATIVE INDEX 1.97 (< OR =4); NT-PRO BNP 1260 PG/ML (<125); POTASSIUM SERUM 4.3 MEQ/L (3.5-5.1); SODIUM LEVEL 137 MEQ/L (136-145); TROPONIN I < 0.02 NG/ML (< 0.10)
[2019-06-20 00:45] LABS: INR 2.91; PROTHROMBIN TIME 30.3 SECONDS (11.8-14.0)
[2019-06-20 00:46] LABS: PARTIAL THROMBOPLASTIN TIME 52.9 SECONDS (25.0-38.4)
[2019-06-20 00:59] LABS: ALBUMIN 3.2 GM/DL (3.2-5.2); ALT/SGPT 9 U/L (12-78); BILIRUBIN,DIRECT 0.5 MG/DL (0.0-0.2); BILIRUBIN,TOTAL 1.4 MG/DL (0.2-1.0); TOTAL PROTEIN 6.8 GM/DL (6.4-8.2)
[2019-06-20] MEDS ORDERED: cefTRIAXone SOD 1 GM in D5W MINI-BAG PLUS 50 ML IV ONE (01:00)
[2019-06-20] MEDS ORDERED: LEVALBUTEROL 1.25 MG/0.5 ML CONCENTRATE NEB NEB ONE (01:15)
[2019-06-20] MEDS ORDERED: SPIR50TA4 PO (01:59)
[2019-06-20] MEDS ORDERED: METO25TA PO (01:59)
[2019-06-20] MEDS ORDERED: ACET-897 PO (01:59)
[2019-06-20] MEDS ORDERED: WARF-18 PO (01:59)
[2019-06-20] MEDS ORDERED: POTA10CA32 PO (01:59)
[2019-06-20] MEDS ORDERED: IPRATROPIUM 0.5MG/ALBUTEROL 2.5MG INH SOL UD 3ML (DUONEB)(J7620) NEB PRN (02:15)
[2019-06-20] MEDS ORDERED: MOM 30ML SUSPENSION UDC PO PRN (02:15)
[2019-06-20] MEDS ORDERED: ACETAMINOPHEN TAB 650MG DOSE (2X325MG) PO PRN (02:15)
[2019-06-20] MEDS ORDERED: MAALOX 30 ML SUSP *UDC PO PRN (02:15)
--- NOTE | 2019-06-20 02:28 | HPEPDOC ---
General Date of Admission Jun 20, 2019 at 02:06 Date of Service: Jun 20, 2019 Chief Complaint The patient is a 69-year-old male admitted with a reason for visit of Pneumonia. Source: Patient, Family Exam Limitations: No limitations Timing/Duration: Day(s) Severity: Mild History of Present Illness Mr. Quintero is a 69 years old man with hx/o idiopathic pulmonary fibromatosis. He presents to ER with c/o two days of SOB, fever, chills and sneezing. In ER pt has low grade temp of 99.2F, appears feverish; mild tachycardia at 105/min, WBC 15.3K with N 88%. Cr 1.8 is around baseline. O2 sat 925 in 2L NC. CXR shows bilateral infiltrates which are chronic. As I compared CT and CXR from as back as 2004, pt always had interstitial disease bilaterally. Today's CXR looks similar, but may be there is slight increased marking on the RLL. Family state that pt has been diagnosed of CHF for 7 years, and last Alan his clerical car checker said he did not have CHF. There are no signs of volume overload. Pt takes two types of diuretics at home. Home Medications Scheduled Ascorbic Acid (Vitamin C) 250 Mg Tablet, 250 MG PO DAILY, (Reported) Bupropion Hcl (Bupropion HCl Sr) 150 Mg Tab, 150 MG PO DAILY, (Reported) Cholecalciferol (Vitamin D3) (Vitamin D3) 1,000 Unit Tab, 1,000 UNIT PO DAILY, (Reported) Docusate Sodium (Docusate Sodium) 100 Mg Cap, 200 MG PO BID, (Reported) Ferrous Gluconate (Ferrous Gluconate) 324 Mg Tab, 648 MG PO BID, (Reported) Finasteride (Finasteride) 5 Mg Tab, 5 MG PO DAILY, (Reported) Glipizide (Glipizide) 5 Mg Tab, 2.5 MG PO DAILY, (Reported) TAKES BEFORE BREAKFAST Metolazone (Metolazone) 2.5 Mg Tablet, 2.5 MG PO DAILY, (Reported) Metoprolol Tartrate (Metoprolol Tartrate) 25 Mg Tab, 12.5 MG PO BID, (Reported) Omeprazole (Omeprazole) 20 Mg Tab, 40 MG PO DAILY, (Reported) Potassium Chloride (Potassium Chloride) 10 Meq Capsule.er, 40 MEQ PO BID, (Reported) Sertraline HCl (Sertraline HCl) 100 Mg Tab, 200 MG PO DAILY, (Reported) Simvastatin (Zocor) 80 Mg Tablet, 40 MG PO QHS, (Reported) Spironolactone (Spironolactone) 50 Mg Tablet, 100 MG PO DAILY, (Reported) Terazosin Hcl (Terazosin HCl) 10 Mg Cap, 10 MG PO QHS, (Reported) Warfarin Sodium (Warfarin Sodium) 2.5 Mg Tablet, 2.5 MG PO QHS, (Reported) Scheduled PRN Acetaminophen (Tylenol Extra Strength) 500 Mg Tablet, 1,000 MG PO Q6H PRN for PAIN / FEVER, (Reported) Allergies Coded Allergies: albuterol (Verified Allergy, Unknown, 04/27/19) amlodipine (Verified Allergy, Unknown, 04/27/19) atenolol (Verified Allergy, Unknown, 04/27/19) Past Medical History Medical History Idiopathic Pulmonary Fibromatosis, CKD stage 3, Diverticulitis, hypertension, A. 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 Family History Significant Family History: No pertinent family hx Social History * Smoker: Denies Alcohol: Denies Drugs: denies A-FIB/CHADSVASC A-FIB History Current/History of A-Fib/PAF?: Yes Current PO Anticoag Therapy: Yes Review of Systems Constitutional: Reports: Chills, Fever, Malaise Eyes: Denies: Pain, Vision change ENT: Denies: Head Aches, Ear Pain Skin: Reports: Lesions (chronic subcutaneous nodule all over the body); Denies: Rash Pulmonary: Reports: Dyspnea; Denies: Cough Cardiovascular: Denies: Chest Pain, Palpitations Gastrointestinal: Denies: Nausea, Vomiting, Abdominal Pain, Diarrhea Genitourinary: Denies: Dysuria, Frequency Hematologic: Denies: Bruising, Bleeding Excessively Endocrine: Denies: Polydipsia, Polyphagia Musculoskeletal: Denies: Neck Pain, Back Pain Neurological: Denies: Weakness, Numbness, Change in speech, Confusion, Seizures Psych: Reports: Mood Normal; Denies: Anxiety, Depression Physical Examination General Exam: Positive: Alert, Cooperative, No Acute Distress Eye Exam: Positive: PERRLA, Conjunctiva & lids normal ENT Exam: Positive: Atraumatic, Mucous membr. moist/pink Neck Exam: Positive: Supple; Negative: JVD Chest Exam: Positive: Clear to auscultation, Normal air movement Heart Exam: Positive: Tachycardic, Irregular Rhythm Telemetry: Positive: Atrial fibrillation Abdomen Exam: Positive: Normal bowel sounds, Soft; Negative: Tenderness Extremity Exam: Positive: Normal pulses; Negative: Edema Skin Exam: Positive: Nl turgor and temperature; Negative: Rash Neuro Exam: Positive: Normal Speech, Strength at 5/5 X4 ext, Normal Tone Psych Exam: Positive: Mental status NL, Mood NL; Negative: Anxiety Vital Signs Vital Signs Date Time Temp Pulse Resp B/P (MAP) Pulse Ox O2 Delivery O2 Flow Rate FiO2 06/20/19 00:11 Nasal Cannula 2.0 92 06/20/19 00:07 88 20 92 06/19/19 23:16 06/19/19 23:07 99.2 Laboratory Data Labs 24H Laboratory Tests 2 06/20/19 00:04: Immature Granulocyte % (Auto) 0.8, White Blood Count 15.3H, Red Blood Count 5.08, Hemoglobin 13.1L, Hematocrit 41.2L, Mean Corpuscular Volume 81.1, Mean Corpuscular Hemoglobin 25.8L, Mean Corpuscular Hemoglobin Concent 31.8L, Red Cell Distribution Width 17.1H, Platelet Count 191, Neutrophils (%) (Auto) 88.5H, Lymphocytes (%) (Auto) 5.6L, Monocytes (%) (Auto) 4.5, Eosinophils (%) (Auto) 0.4, Basophils (%) (Auto) 0.2, Neutrophils # (Auto) 13.5H, Lymphocytes # (Auto) 0.9L, Monocytes # (Auto) 0.7, Eosinophils # (Auto) 0.1, Basophils # (Auto) 0.0, Nucleated Red Blood Cells % (auto) 0.0, Prothrombin Time 30.3H, Prothromb Time International Ratio 2.91, Activated Partial Thromboplast Time 52.9H, Anion Gap 10, Glomerular Filtration Rate 39.2L, Calcium Level 8.9, Aspartate Amino Transf (AST/SGOT) 25, Alanine Aminotransferase (ALT/SGPT) 9L, Alkaline Phosphatase 68, Total Bilirubin 1.4H, Direct Bilirubin 0.5H, Total Creatine Kinase 76, Creatine Kinase MB 1.5, Creatine Kinase MB Relative Index 1.97, Troponin I < 0.02, JC-Ifv-M-Type Natriuretic Peptide 1260H, Total Protein 6.8, Albumin 3.2, Albumin /Globulin Ratio 0.89L 06/20/19 01:31: CBC/BMP Laboratory Tests 06/20/19 00:04 Red Blood Count 5.08, Mean Corpuscular Volume 81.1, Mean Corpuscular Hemoglobin 25.8 L, Mean Corpuscular Hemoglobin Concent 31.8 L, Red Cell Distribution Width 17.1 H, Neutrophils (%) (Auto) 88.5 H, Lymphocytes (%) (Auto) 5.6 L, Monocytes (%) (Auto) 4.5, Eosinophils (%) (Auto) 0.4, Basophils (%) (Auto) 0.2, Neutrophils # (Auto) 13.5 H, Lymphocytes # (Auto) 0.9 L, Monocytes # (Auto) 0.7, Eosinophils # (Auto) 0.1, Basophils # (Auto) 0.0 Microbiology Microbiology 06/20/19 Blood Culture, Received Pending 06/20/19 Blood Culture, Received Pending 06/20/19 Respiratory Virus Panel (PCR) (JULIEN), Received Pending Assessment/Plan Possible RLL pneumonia with Underlying chronic ILD, Acute Hypoxic Respiratory Failure - Admit to inpatient - IV Levaquin to cover for pseudomonas due to recent hospitalization - DuoNeb; O2 support as needed to keep O2 sat 90-94% - C/S - Monitor INR; continue Coumadin Continue home meds for other chronic illness. Problems (1) Pneumonia Status: Acute (2) Hypoxia Status: Acute (3) CKD (chronic kidney disease), stage III Status: Acute (4) HTN (hypertension) Status: Chronic (5) Afib Status: Chronic Plan / VTE VTE Prophylaxis Ordered?: Yes HELIO ESTEVES MD Jun 20, 2019 02:28
[2019-06-20] MEDS ORDERED: LevoFLOXacin IV 750 MG in IV 1 EA IV SCH (05:00)
--- NOTE | 2019-06-20 07:20 | ECGEPIP ---
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
[2019-06-20] MEDS: IPRATROPIUM 0.5MG/ALBUTEROL 2.5MG INH SOL UD 3ML (DUONEB)(J7620) NEB SCH ×3 (07:59→19:45)
--- NOTE | 2019-06-20 08:45 | REP ---
CHEST, TWO VIEWS: Two views of the chest are performed and compared to prior study 05/03/2019. Chronic interstitial opacities appear relatively stable. No definite superimposed acute infiltrate is seen. The heart is mildly enlarged. The mediastinal silhouette is unchanged with calcification of the thoracic aorta. There are degenerative changes of the spine without compression deformity. IMPRESSION: Chronic interstitial opacities are stable with no definite superimposed acute infiltrate. Mild cardiomegaly. Electronically Signed by Bill Mueller MD 06/21/2019 05:46 P
[2019-06-20] MEDS: FINASTERIDE 5 MG TAB PO SCH (08:47)
[2019-06-20] MEDS: METOPROLOL TART 12.5 MG PER 1/2 TAB PO SCH ×2 (08:48→20:54)
[2019-06-20] MEDS: buPROPion **SR TABLET** (ZYBAN) 150MG PO SCH (08:48)
[2019-06-20] MEDS: FERROUS GLUCONATE 324 MG TAB PO SCH ×2 (08:48→20:53)
[2019-06-20] MEDS: DOCUSATE SODIUM 100 MG CAP PO SCH ×2 (08:48→20:53)
[2019-06-20] MEDS: SPIRONOLACTONE 50 MG TAB PO SCH (08:48)
[2019-06-20] MEDS: OMEPRAZOLE 20 MG CAP PO SCH (08:48)
[2019-06-20] MEDS: VITAMIN D 1,000 INTERNATIONAL UNITS TABLET PO SCH (08:49)
[2019-06-20] MEDS: SERTRALINE 100 MG TAB PO SCH (08:53)
[2019-06-20] MEDS ORDERED: SIMETHICONE 80 MG CHEW TAB PO PRN (12:15)
--- NOTE | 2019-06-20 13:33 | REP ---
CT of the abdomen without IV or bowel contrast: The pelvis is not included. There are no comparison abdomen/pelvis CT studies. The visualized lung archuleta demonstrate diffuse bilateral ground-glass opacities. This is unchanged from a prior chest CT dated 09/29/2018. The unenhanced hepatic parenchyma is unremarkable. The gallbladder, pancreas, spleen, adrenals and kidneys are unremarkable except for the kidneys appearing somewhat atrophic. There is no hydronephrosis. The abdominal aorta is unremarkable. The visualized bowel loops are unremarkable. The appendix is visualized and is unremarkable. The visualized mesentery is unremarkable. Impression: There are ground-glass opacities in the visualized lower lung archuleta, unchanged from a chest CT of 09/29/2018. Otherwise, negative CT study of the abdomen except for probable renal cortical atrophy bilaterally. The pelvis is not included. Electronically Signed by Bill Ley MD 06/20/2019 01:26 P
[2019-06-20 14:00] VITALS: BP 108/56
[2019-06-20 16:31] VITALS: BP 118/76
--- NOTE | 2019-06-20 18:01 | IPNPDOC ---
Date Seen The patient was seen on 06/20/19. Progress Note SUBJECTIVE: Patient complained of abdominal gas despite having adequate bowel movements. Does not report significant SOB but the abdominal gas does make him catch his breath from time to time. Abdomen distended but no significant pain. Tmax 101.2 this afternoon. OBJECTIVE PHYSICAL EXAMINATION: VITAL SIGNS: Please see below. General: Mild distress, Alert Eyes: Normal sclera, EOMI, BARBARA HENT: Atraumatic, neck supple Cardiovascular: Normal rate, normal rhythm Pulmonary: Clear to auscultation b/l, no wheezing GI: Soft, nontender Skin: Warm and dry Neuro: CN grossly intact. No focal deficits. Strengths equal b/l. Psych: oriented x 3 LABORATORY DATA, IMAGING STUDIES, MICROBIOLOGY: Please see below. DVT prophylaxis ordered?: On Warfarin ASSESSMENT AND PLAN: 1. SIRS - WBC 15.3 with fevers, lactic acid WNL however. - Suspected PNA however CT does not reveal significant change. - Primarily complaint is abdominal gas but no significant pain. - CT abdomen does not reveal gross abnormalities. - Will broaden antibiotics given persistent fevers while on levaquin, could cover for possible intraabdominal infection as well. - Perform MRSA nare, d/c vancomycin if negative. - f/u blood cultures. Obtain procalcitonin. 2. Idiopathic lung disease - Persistent chronic lung changes on CT. - O2 support as needed. 3. HTN - Monitor BP. Resume home meds. 4. DM - c/w ISS. 5. Afib - c/w warfarin and BB. 6. HFpEF - Had a documented history of HF but was told he did not have CHF. - Resume home meds. VS, I&O, 24H, Garciabone Vital Signs/I&O Vital Signs Date Time Temp Pulse Resp B/P (MAP) Pulse Ox O2 Delivery O2 Flow Rate FiO2 06/20/19 17:00 99.6 06/20/19 16:31 100 17 118/76 (90) 90 06/20/19 06:41 NIPPV (BIPAP/CPAP) 06/20/19 02:39 92 06/20/19 00:11 2.0 I&O- Last 24 Hours up to 6 AM 06/20/19 06:00 Intake Total 50 ml Output Total 400 ml Balance -350 ml Laboratory Data 24H LABS Laboratory Tests 2 06/20/19 00:04: Immature Granulocyte % (Auto) 0.8, White Blood Count 15.3H, Red Blood Count 5.08, Hemoglobin 13.1L, Hematocrit 41.2L, Mean Corpuscular Volume 81.1, Mean Corpuscular Hemoglobin 25.8L, Mean Corpuscular Hemoglobin Concent 31.8L, Red Cell Distribution Width 17.1H, Platelet Count 191, Neutrophils (%) (Auto) 88.5H, Lymphocytes (%) (Auto) 5.6L, Monocytes (%) (Auto) 4.5, Eosinophils (%) (Auto) 0.4, Basophils (%) (Auto) 0.2, Neutrophils # (Auto) 13.5H, Lymphocytes # (Auto) 0.9L, Monocytes # (Auto) 0.7, Eosinophils # (Auto) 0.1, Basophils # (Auto) 0.0, Nucleated Red Blood Cells % (auto) 0.0, Prothrombin Time 30.3H, Prothromb Time International Ratio 2.91, Activated Partial Thromboplast Time 52.9H, Anion Gap 10, Glomerular Filtration Rate 39.2L, Calcium Level 8.9, Aspartate Amino Transf (AST/SGOT) 25, Alanine Aminotransferase (ALT/SGPT) 9L, Alkaline Phosphatase 68, Total Bilirubin 1.4H, Direct Bilirubin 0.5H, Total Creatine Kinase 76, Creatine Kinase MB 1.5, Creatine Kinase MB Relative Index 1.97, Troponin I < 0.02, WF-Saf-A-Type Natriuretic Peptide 1260H, Total Protein 6.8, Albumin 3.2, Albumin/Globulin Ratio 0.89L 06/20/19 01:31: Lactic Acid Level 1.4 CBC/BMP Laboratory Tests 06/20/19 00:04 Red Blood Count 5.08, Mean Corpuscular Volume 81.1, Mean Corpuscular Hemoglobin 25.8 L, Mean Corpuscular Hemoglobin Concent 31.8 L, Red Cell Distribution Width 17.1 H, Neutrophils (%) (Auto) 88.5 H, Lymphocytes (%) (Auto) 5.6 L, Monocytes (%) (Auto) 4.5, Eosinophils (%) (Auto) 0.4, Basophils (%) (Auto) 0.2, Neutrophils # (Auto) 13.5 H, Lymphocytes # (Auto) 0.9 L, Monocytes # (Auto) 0.7, Eosinophils # (Auto) 0.1, Basophils # (Auto) 0.0 Microbiology Microbiology 06/20/19 Blood Culture, Received Pending 06/20/19 Blood Culture, Received Pending 06/20/19 Respiratory Virus Panel (PCR) (JULIEN) - Final, Complete FENG ALCANTARA MD Jun 20, 2019 18:01
[2019-06-20] MEDS: WARFARIN SOD 2.5 MG TAB PO SCH (18:29)
[2019-06-20] MEDS ORDERED: VANCOMYCIN HCL 1,000 MG, VIAL MATE ADAPTER 1 EACH in D5W 250 ML IV ONE (19:00)
[2019-06-20] MEDS: SIMVASTATIN 40 MG TAB PO SCH (20:53)
[2019-06-20] MEDS: TERAZOSIN 5 MG CAP PO SCH (20:54)
[2019-06-20 22:00] VITALS: BP 119/76
[2019-06-20] MEDS: PIPERACILLIN/TAZOBACTAM SOD 3.375 GM in D5W MINI-BAG PLUS 50 ML IV SCH (22:31)
[2019-06-21] MEDS: IPRATROPIUM 0.5MG/ALBUTEROL 2.5MG INH SOL UD 3ML (DUONEB)(J7620) NEB SCH ×2 (01:10→07:22)
[2019-06-21] MEDS: PIPERACILLIN/TAZOBACTAM SOD 3.375 GM in D5W MINI-BAG PLUS 50 ML IV SCH ×4 (02:09→20:36)
[2019-06-21] MEDS: VANCOMYCIN HCL 750 MG, VIAL MATE ADAPTER 1 EACH in D5W 250 ML IV SCH ×2 (04:07→16:58)
--- NOTE | 2019-06-21 05:25 | PHACANCOPD ---
PHARMACY VANCOMYCIN DOSING Pt Demographics Demographics Patient Age:69 , Weight:122.270 , Gender: male Adjusted Body Weight Date: 06/21/19, Adjusted Body Weight: [91.3] Kg Vancomycin Vancomycin indication: EMPIRIC SEPSIS(SIRS) Vancomycin Target Ranges: 15-20 mcg/ml Vancomycin Load Y/N: No Load Dose Date Time Vancomycin Load Dose: Date: Time: Vancomycin Dose Date: 06/21/19. Current Vancomycin Dose: [1GM X1,THEN 750MG q12H] Intermittent Dosing?: No Labs Labs Laboratory Tests Test 06/20/19 00:04 Aspartate Amino Transf (AST/SGOT) 25 U/L (7-37) Alanine Aminotransferase (ALT/SGPT) 9 U/L (12-78) Alkaline Phosphatase 68 U/L (45-117) Total Bilirubin 1.4 MG/DL (0.2-1.0) Direct Bilirubin 0.5 MG/DL (0.0-0.2) Laboratory Tests 06/20/19 00:04 Red Blood Count 5.08, Mean Corpuscular Volume 81.1, Mean Corpuscular Hemoglobin 25.8, Mean Corpuscular Hemoglobin Concent 31.8, Red Cell Distribution Width 17.1, Neutrophils (%) (Auto) 88.5, Lymphocytes (%) (Auto) 5.6, Monocytes (%) (Auto) 4.5, Eosinophils (%) (Auto) 0.4, Basophils (%) (Auto) 0.2, Neutrophils # (Auto) 13.5, Lymphocytes # (Auto) 0.9, Monocytes # (Auto) 0.7, Eosinophils # (Auto) 0.1, Basophils # (Auto) 0.0 Micro Microbiology 06/20/19 Blood Culture - Preliminary, Resulted No growth after 24 hours . All specim... 06/20/19 Blood Culture - Preliminary, Resulted No growth after 24 hours . All specim... 06/20/19 MRSA Screen, Received Pending 06/20/19 Respiratory Virus Panel (PCR) (JULIEN) - Final, Complete Creatinine Clearance Date:06/21/19. Creatinine Clearance: [48.5].(CALCULATED) Assessment and Plan Maintaining Current Dose?: Yes Reason for dose change: No Dose Change Pharmacist Note Pharmacist Note Date: 06/21/19. Pharmacist note:69-YOM,ADMITTED 06/19,scr=1.83,CALCULATED crcl=48.5 Ht:69",Wt:122.27kg,Empiric ABX dosing for sepsis: pip/tazo 3.375 iv q6 hours and Pharmacy dosed Vancomycin (PNA at first suspected but lungs seem clear,PCR screen=neg.)Vanco 1 gram administered 06/20@2100,then will begin 750mg IV Q12 hours-will review 22 AM labs and possibly adjust further . First trough is scheduled for 06/22@0400(prior to the 4th dose)-will continue to follow labs [facility] Jun 21, 2019 05:25
[2019-06-21 06:00] VITALS: BP 112/75
[2019-06-21 06:29] LABS: HEMATOCRIT 37.5 % (42.0-52.0); HEMOGLOBIN 11.9 g/dl (13.5-17.5); MEAN CORPUSCULAR HEMOGLOBIN 24.8 pg (27.0-33.0); MEAN CORPUSCULAR HGB CONC 31.7 g/dl (32.0-36.5); MEAN CORPUSCULAR VOLUME 78.1 fl (80.0-96.0); PLATELET COUNT, AUTOMATED 217 10^3/uL (150-450); WHITE BLOOD COUNT 13.1 10^3/uL (4.0-10.0)
[2019-06-21 06:39] LABS: INR 3.37; PROTHROMBIN TIME 34.1 SECONDS (11.8-14.0)
[2019-06-21 06:54] LABS: CALCIUM LEVEL 9.1 MG/DL (8.8-10.2); CREATININE FOR GFR 1.91 MG/DL (0.70-1.30); GLOMERULAR FILTRATION RATE 37.3 (>42); POTASSIUM SERUM 3.7 MEQ/L (3.5-5.1)
[2019-06-21] MEDS: metOLazone 2.5 MG TAB PO SCH (09:38)
[2019-06-21] MEDS: buPROPion **SR TABLET** (ZYBAN) 150MG PO SCH (09:38)
[2019-06-21] MEDS: FERROUS GLUCONATE 324 MG TAB PO SCH ×2 (09:38→20:33)
[2019-06-21] MEDS: VITAMIN D 1,000 INTERNATIONAL UNITS TABLET PO SCH (09:38)
[2019-06-21] MEDS: OMEPRAZOLE 20 MG CAP PO SCH (09:39)
[2019-06-21] MEDS: DOCUSATE SODIUM 100 MG CAP PO SCH ×2 (09:39→20:33)
[2019-06-21] MEDS: SPIRONOLACTONE 50 MG TAB PO SCH (09:39)
[2019-06-21] MEDS: FINASTERIDE 5 MG TAB PO SCH (09:39)
[2019-06-21] MEDS: METOPROLOL TART 12.5 MG PER 1/2 TAB PO SCH ×2 (09:39→20:34)
[2019-06-21] MEDS: SERTRALINE 100 MG TAB PO SCH (09:39)
[2019-06-21 14:00] VITALS: BP 129/66
--- NOTE | 2019-06-21 14:29 | IPNPDOC ---
Date Seen The patient was seen on 06/21/19. Progress Note SUBJECTIVE: Patient complained of abdominal gas despite having adequate bowel movements. Does not report significant SOB but the abdominal gas does make him catch his breath from time to time. Abdomen distended but no significant pain. Tmax 101.2 this afternoon. INR >3 OBJECTIVE PHYSICAL EXAMINATION: VITAL SIGNS: Please see below. General: Mild distress, Alert Eyes: Normal sclera, EOMI, BARBARA HENT: Atraumatic, neck supple Cardiovascular: Normal rate, normal rhythm Pulmonary: Clear to auscultation b/l, no wheezing GI: Soft, nontender Skin: Warm and dry Neuro: CN grossly intact. No focal deficits. Strengths equal b/l. Psych: oriented x 3 LABORATORY DATA, IMAGING STUDIES, MICROBIOLOGY: Please see below. DVT prophylaxis ordered?: On Warfarin ASSESSMENT AND PLAN: 1. SIRS - WBC 15.3 with fevers, lactic acid WNL however. - Suspected PNA however CT does not reveal significant change. - Primarily complaint is abdominal gas but no significant pain. - CT abdomen does not reveal gross abnormalities. - Will broaden antibiotics given persistent fevers when only on levaquin, would cover for possible intraabdominal infection as well. - Perform MRSA nare, d/c vancomycin if negative. - f/u blood cultures. Obtain procalcitonin. 2. Idiopathic lung disease - Persistent chronic lung changes on CT. - O2 support as needed. 3. HTN - Monitor BP. Resume home meds. 4. DM - c/w ISS. 5. Afib - c/w warfarin and BB but hold today's dose. INR 3.37 6. HFpEF - Had a documented history of HF but was told he did not have CHF. - Resume home meds. VS, I&O, 24H, Fishbone Vital Signs/I&O Vital Signs Date Time Temp Pulse Resp B/P (MAP) Pulse Ox O2 Delivery O2 Flow Rate FiO2 06/21/19 09:39 97 112/75 06/21/19 06:00 97.1 20 90 06/21/19 01:10 BIPAP/CPAP 4.0 06/20/19 02:39 92 I&O- Last 24 Hours up to 6 AM 06/21/19 05:59 Intake Total 2305 ml Output Total 950 ml Balance 1355 ml Laboratory Data 24H LABS Laboratory Tests 2 06/21/19 01:55: Methicillin-Resist S.aureus DNA PCR NOT DETECTED 06/21/19 05:41: Nucleated Red Blood Cells % (auto) 0.0, Prothrombin Time 34.1H, Prothromb Time International Ratio 3.37, Anion Gap 10, Glomerular Filtration Rate 37.3L, Blood Urea Nitrogen 33H, Creatinine 1.91H, Sodium Level 133L, Potassium Level 3.7, Chloride Level 98, Carbon Dioxide Level 25, Calcium Level 9.1 CBC/BMP Laboratory Tests 06/21/19 05:41 Red Blood Count 4.80, Mean Corpuscular Volume 78.1 L, Mean Corpuscular Hemoglobin 24.8 L, Mean Corpuscular Hemoglobin Concent 31.7 L, Red Cell Distribution Width 17.0 H, Calcium Level 9.1 Microbiology Microbiology 06/20/19 Blood Culture - Preliminary, Resulted No growth after 24 hours . All specim... 06/20/19 Blood Culture - Preliminary, Resulted No growth after 24 hours . All specim... 06/20/19 MRSA Screen, Received Pending 06/20/19 Respiratory Virus Panel (PCR) (JULIEN) - Final, Complete FENG ALCANTARA MD Jun 21, 2019 14:29
[2019-06-21] MEDS: WARFARIN SOD 2.5 MG TAB PO SCH (14:36)
[2019-06-21] MEDS: SIMVASTATIN 40 MG TAB PO SCH (20:33)
[2019-06-21] MEDS: TERAZOSIN 5 MG CAP PO SCH (20:33)
[2019-06-21] MEDS: CLOTRIMAZOLE 1% TOPICAL CREAM 30GM TOP SCH (20:34)
[2019-06-21 22:00] VITALS: BP 123/75
[2019-06-22] MEDS: PIPERACILLIN/TAZOBACTAM SOD 3.375 GM in D5W MINI-BAG PLUS 50 ML IV SCH ×4 (02:08→20:50)
--- NOTE | 2019-06-22 04:20 | PHACANCOPD ---
PHARMACY VANCOMYCIN DOSING Pt Demographics Demographics Patient Age:69 , Weight:121.100 , Gender: male Adjusted Body Weight Date: 06/21/19, Adjusted Body Weight: [91.3] Kg Vancomycin Vancomycin indication: EMPIRIC SEPSIS(SIRS) Vancomycin Target Ranges: 15-20 mcg/ml Vancomycin Load Y/N: No Load Dose Date Time Vancomycin Load Dose: Date: Time: Vancomycin Dose Date: 06/21/19. Current Vancomycin Dose: [1GM X1,THEN 750MG q12H] Intermittent Dosing?: No Labs Micro Microbiology 06/20/19 Blood Culture - Preliminary, Resulted No Growth after 48 hours. All Specime... 06/20/19 Blood Culture - Preliminary, Resulted No Growth after 48 hours. All Specime... 06/20/19 MRSA Screen, Received Pending 06/20/19 Respiratory Virus Panel (PCR) (JULIEN) - Final, Complete Creatinine Clearance Date:06/21/19. Creatinine Clearance: [48.5].(CALCULATED) Assessment and Plan Maintaining Current Dose?: Yes Reason for dose change: No Dose Change Pharmacist Note Pharmacist Note Date: 06/22/19. Pharmacist note:Vancomycin trough drawn this morning@3:26 reported as 15.6(goal=15-20) SCR not posted yet for today-Will continue current Vanco regimen( 750mg Q12H) pending evaluation of today's SCR. Date: 06/21/19. Pharmacist note:69-YOM,ADMITTED 06/19,scr=1.83,CALCULATED crcl=48.5 Ht:69",Wt:122.27kg,Empiric ABX dosing for sepsis: pip/tazo 3.375 iv d0rtneo and Pharmacy dosed Vancomycin (PNA at first suspected but lungs seem clear,PCR screen=neg.)Vanco 1 gram administered 06/20@2100,then will begin 750mg IV Q12 hours-will review 06/21 AM labs and possibly adjust further . First trough is scheduled for 06/22@0400(prior to the 4th dose)-will continue to follow labs [facility] Jun 22, 2019 04:20
[2019-06-22] MEDS: VANCOMYCIN HCL 750 MG, VIAL MATE ADAPTER 1 EACH in D5W 250 ML IV SCH (04:24)
[2019-06-22 06:00] VITALS: BP 118/70
[2019-06-22 07:07] LABS: HEMATOCRIT 37.4 % (42.0-52.0); HEMOGLOBIN 12.1 g/dl (13.5-17.5); MEAN CORPUSCULAR HEMOGLOBIN 25.1 pg (27.0-33.0); MEAN CORPUSCULAR HGB CONC 32.4 g/dl (32.0-36.5); MEAN CORPUSCULAR VOLUME 77.4 fl (80.0-96.0); PLATELET COUNT, AUTOMATED 225 10^3/uL (150-450); RED BLOOD COUNT 4.83 10^6/uL (4.30-6.10); WHITE BLOOD COUNT 9.3 10^3/uL (4.0-10.0)
[2019-06-22 07:32] LABS: CALCIUM LEVEL 9.4 MG/DL (8.8-10.2); CREATININE FOR GFR 1.91 MG/DL (0.70-1.30); GLOMERULAR FILTRATION RATE 37.3 (>42); POTASSIUM SERUM 3.1 MEQ/L (3.5-5.1)
[2019-06-22] MEDS: VITAMIN D 1,000 INTERNATIONAL UNITS TABLET PO SCH (08:24)
[2019-06-22] MEDS: FINASTERIDE 5 MG TAB PO SCH (08:24)
[2019-06-22] MEDS: metOLazone 2.5 MG TAB PO SCH (08:25)
[2019-06-22] MEDS: buPROPion **SR TABLET** (ZYBAN) 150MG PO SCH (08:25)
[2019-06-22] MEDS: SPIRONOLACTONE 50 MG TAB PO SCH (08:25)
[2019-06-22] MEDS: DOCUSATE SODIUM 100 MG CAP PO SCH ×2 (08:25→20:50)
[2019-06-22] MEDS: OMEPRAZOLE 20 MG CAP PO SCH (08:25)
[2019-06-22] MEDS: FERROUS GLUCONATE 324 MG TAB PO SCH ×2 (08:25→20:54)
[2019-06-22] MEDS: SERTRALINE 100 MG TAB PO SCH (08:26)
[2019-06-22] MEDS: METOPROLOL TART 12.5 MG PER 1/2 TAB PO SCH ×2 (08:29→20:55)
[2019-06-22] MEDS: CLOTRIMAZOLE 1% TOPICAL CREAM 30GM TOP SCH ×2 (08:34→20:56)
[2019-06-22 14:00] VITALS: BP 128/81
[2019-06-22] MEDS: WARFARIN SOD 2.5 MG TAB PO SCH (17:03)
[2019-06-22] MEDS ORDERED: POTASSIUM CHLORIDE 10 MEQ SR TABLET PO ONE (20:15)
--- NOTE | 2019-06-22 20:22 | IPNPDOC ---
Text Note Date of Service The patient was seen on 06/22/19. NOTE Subjective: Patient complains of shortness of breath and abdominal distention, but stated is better today. He denies any fever or chills, nausea or vomiting, palpitations Objective: PHYSICAL EXAMINATION: VITAL SIGNS: Please see below. General: Mild distress, Alert Eyes: Normal sclera, EOMI, BARBARA HEENT: Atraumatic, neck supple Cardiovascular: Normal rate, normal rhythm Pulmonary: Clear to auscultation b/l, no wheezing GI: Soft, nontender Skin: Warm and dry Neuro: CN grossly intact. No focal deficits. Strengths equal b/l. Psych: oriented x 3 Assessment and plan Patient is 69 years old white male with past mental history of interstitial lung diseases, on chronic oxygen therapy, hypertension, diabetes presented hospital with shortness of breath secondary to pneumonia. Sepsis Most likely secondary to pneumonia, however CT does not reveal significant change, procalcitonin 0.2. Patient clinically improved on the antibiotic therapy Patient complains of increased sputum production and cough Resolved for now Patient is afebrile, no leukocytosis Vancomycin was discontinued, patient is MRSA negative Continue Zosyn Blood culture negative for 48 hours Respiratory panel was negative 2. Idiopathic lung disease Persistent chronic lung changes on CT. O2 support as needed Follow-up with research test engine evaluator in the outpatient settings. 3. HTN - Monitor BP. Resume home meds. 4. DM - c/w ISS. 5. Afib Rate controlled On warfarin Continue to monitor INR 6. HFpEF Continue cardioprotective medications VS,Fishbone, I+O VS, Fishbone, I+O Laboratory Tests 06/22/19 06:37 Red Blood Count 4.83, Mean Corpuscular Volume 77.4 L, Mean Corpuscular Hemoglobin 25.1 L, Mean Corpuscular Hemoglobin Concent 32.4, Red Cell Distribution Width 16.4 H, Calcium Level 9.4 Vital Signs Date Time Temp Pulse Resp B/P (MAP) Pulse Ox O2 Delivery O2 Flow Rate FiO2 06/22/19 14:00 97.8 100 17 128/81 (97) 95 1.0 06/21/19 01:10 BIPAP/CPAP 06/20/19 02:39 92 I&O- Last 24 Hours up to 6 AM 06/22/19 06:00 Intake Total 1615 ml Output Total 700 ml Balance 915 ml DROZHZHIN,JUAN DO Jun 22, 2019 20:22
[2019-06-22] MEDS: TERAZOSIN 5 MG CAP PO SCH (20:53)
[2019-06-22] MEDS: SIMVASTATIN 40 MG TAB PO SCH (20:54)
[2019-06-23] MEDS: PIPERACILLIN/TAZOBACTAM SOD 3.375 GM in D5W MINI-BAG PLUS 50 ML IV SCH ×4 (03:00→20:31)
[2019-06-23 06:00] VITALS: BP 109/51
[2019-06-23 06:36] LABS: HEMATOCRIT 38.5 % (42.0-52.0); HEMOGLOBIN 12.3 g/dl (13.5-17.5); MEAN CORPUSCULAR HEMOGLOBIN 25.2 pg (27.0-33.0); MEAN CORPUSCULAR HGB CONC 31.9 g/dl (32.0-36.5); MEAN CORPUSCULAR VOLUME 78.9 fl (80.0-96.0); RED BLOOD COUNT 4.88 10^6/uL (4.30-6.10); WHITE BLOOD COUNT 8.1 10^3/uL (4.0-10.0)
[2019-06-23 06:37] LABS: PLATELET COUNT, AUTOMATED 223 10^3/uL (150-450)
[2019-06-23 07:03] LABS: CALCIUM LEVEL 9.4 MG/DL (8.8-10.2); CREATININE FOR GFR 1.86 MG/DL (0.70-1.30); GLOMERULAR FILTRATION RATE 38.4 (>42); POTASSIUM SERUM 3.4 MEQ/L (3.5-5.1)
[2019-06-23] MEDS: buPROPion **SR TABLET** (ZYBAN) 150MG PO SCH (08:58)
[2019-06-23] MEDS: SERTRALINE 100 MG TAB PO SCH (08:59)
[2019-06-23] MEDS: predniSONE 20 MG TAB PO SCH (08:59)
[2019-06-23] MEDS: FINASTERIDE 5 MG TAB PO SCH (08:59)
[2019-06-23] MEDS: VITAMIN D 1,000 INTERNATIONAL UNITS TABLET PO SCH (08:59)
[2019-06-23] MEDS: OMEPRAZOLE 20 MG CAP PO SCH (08:59)
[2019-06-23] MEDS: SPIRONOLACTONE 50 MG TAB PO SCH (08:59)
[2019-06-23] MEDS: DOCUSATE SODIUM 100 MG CAP PO SCH ×2 (08:59→20:33)
[2019-06-23] MEDS: FERROUS GLUCONATE 324 MG TAB PO SCH ×2 (09:00→20:33)
[2019-06-23] MEDS: CLOTRIMAZOLE 1% TOPICAL CREAM 30GM TOP SCH ×2 (09:01→20:35)
[2019-06-23] MEDS: metOLazone 2.5 MG TAB PO SCH (09:04)
[2019-06-23] MEDS: METOPROLOL TART 12.5 MG PER 1/2 TAB PO SCH (09:17)
[2019-06-23] MEDS ORDERED: SODIUM CHLORIDE 0.9% 1000ML IV ONE (11:30)
--- NOTE | 2019-06-23 12:57 | IPNPDOC ---
Text Note Date of Service The patient was seen on 06/23/19. NOTE Subjective: Patient continues to have shortness of breath on exertion. His o xygen requirements 1 L of oxygen. He denies any fever or chills, nausea or vomiting, palpitations Objective: PHYSICAL EXAMINATION: VITAL SIGNS: Please see below. General: Mild distress, Alert Eyes: Normal sclera, EOMI, BARBARA HEENT: Atraumatic, neck supple Cardiovascular: Normal rate, normal rhythm Pulmonary: Clear to auscultation b/l, no wheezing GI: Soft, nontender Skin: Warm and dry Neuro: CN grossly intact. No focal deficits. Strengths equal b/l. Psych: oriented x 3 Assessment and plan Patient is 69 years old white male with past mental history of interstitial lung diseases, on chronic oxygen therapy, hypertension, diabetes presented hospital with shortness of breath secondary to pneumonia. Sepsis Resolved Most likely secondary to pneumonia, however CT does not reveal significant changes, procalcitonin 0.2. Patient clinically improved on the antibiotic therapy Patient complains of increased sputum production and cough Patient is afebrile, no leukocytosis Vancomycin was discontinued, patient is MRSA negative Continue Zosyn Blood culture negative for 72 hours Respiratory panel was negative 2. 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 O2 support as needed Appreciate/agree with teleprinter recommendation Patient has allergy to albuterol. I started inhalers budesonide and ipratropium 3. HTN - Monitor BP. Resume home meds. 4. DM - c/w ISS. Glucose levels under control 5. Afib Heart rate is elevated today. I increased the dose of beta taylor to 25 twice a day On warfarin Continue to monitor INR. I will hold Coumadin for today due to INR 3.7 6. HFpEF Continue cardioprotective medications VS,Fishbone, I+O VS, Fishbone, I+O Laboratory Tests 06/23/19 05:51 Red Blood Count 4.88, Mean Corpuscular Volume 78.9 L, Mean Corpuscular Hemoglobin 25.2 L, Mean Corpuscular Hemoglobin Concent 31.9 L, Red Cell Distribution Width 16.4 H, Calcium Level 9.4 Vital Signs Date Time Temp Pulse Resp B/P (MAP) Pulse Ox O2 Delivery O2 Flow Rate FiO2 06/23/19 09:17 121 125/82 06/23/19 09:00 1.0 06/23/19 06:00 98.3 18 90 06/21/19 01:10 BIPAP/CPAP 06/20/19 02:39 92 I&O- Last 24 Hours up to 6 AM 06/23/19 06:00 Intake Total 1820 ml Output Total 1500 ml Balance 320 ml JUAN CANADA DO Jun 23, 2019 12:57
[2019-06-23] MEDS: WARFARIN SOD 2.5 MG TAB PO SCH (12:58)
[2019-06-23] MEDS ORDERED: POTASSIUM CHLORIDE 10 MEQ SR TABLET PO ONE (13:00)
[2019-06-23 14:00] VITALS: BP 101/80
[2019-06-23] MEDS: BUDESONIDE 180MCG INHALER (PULMICORT FLEXHALER) INH SCH (20:00)
[2019-06-23] MEDS: SIMVASTATIN 40 MG TAB PO SCH (20:33)
[2019-06-23] MEDS: METOPROLOL TART 25 MG TABLET PO SCH (20:34)
[2019-06-23] MEDS: TERAZOSIN 5 MG CAP PO SCH (20:34)
[2019-06-23 22:00] VITALS: BP 129/80
[2019-06-24] MEDS: PIPERACILLIN/TAZOBACTAM SOD 3.375 GM in D5W MINI-BAG PLUS 50 ML IV SCH ×2 (02:58→08:37)
[2019-06-24 06:00] VITALS: BP 128/81
[2019-06-24 06:23] LABS: HEMATOCRIT 38.6 % (42.0-52.0); HEMOGLOBIN 12.2 g/dl (13.5-17.5); MEAN CORPUSCULAR HEMOGLOBIN 25.3 pg (27.0-33.0); MEAN CORPUSCULAR HGB CONC 31.6 g/dl (32.0-36.5); MEAN CORPUSCULAR VOLUME 79.9 fl (80.0-96.0); PLATELET COUNT, AUTOMATED 247 10^3/uL (150-450); RED BLOOD COUNT 4.83 10^6/uL (4.30-6.10); WHITE BLOOD COUNT 9.2 10^3/uL (4.0-10.0)
[2019-06-24 06:55] LABS: CALCIUM LEVEL 9.4 MG/DL (8.8-10.2); CREATININE FOR GFR 1.64 MG/DL (0.70-1.30); GLOMERULAR FILTRATION RATE 44.4 (>42); POTASSIUM SERUM 3.2 MEQ/L (3.5-5.1)
[2019-06-24] MEDS ORDERED: POTASSIUM CHLORIDE 10 MEQ SR TABLET PO ONE (08:30)
[2019-06-24] MEDS: VITAMIN D 1,000 INTERNATIONAL UNITS TABLET PO SCH (08:40)
[2019-06-24] MEDS: FINASTERIDE 5 MG TAB PO SCH (08:40)
[2019-06-24] MEDS: SERTRALINE 100 MG TAB PO SCH (08:40)
[2019-06-24] MEDS: predniSONE 20 MG TAB PO SCH (08:40)
[2019-06-24] MEDS: buPROPion **SR TABLET** (ZYBAN) 150MG PO SCH (08:40)
[2019-06-24] MEDS: metOLazone 2.5 MG TAB PO SCH (08:40)
[2019-06-24] MEDS: OMEPRAZOLE 20 MG CAP PO SCH (08:40)
[2019-06-24] MEDS: FERROUS GLUCONATE 324 MG TAB PO SCH (08:41)
[2019-06-24] MEDS: CLOTRIMAZOLE 1% TOPICAL CREAM 30GM TOP SCH ×2 (08:41→21:59)
[2019-06-24] MEDS: DOCUSATE SODIUM 100 MG CAP PO SCH ×2 (08:41→21:59)
[2019-06-24] MEDS: METOPROLOL TART 25 MG TABLET PO SCH ×2 (09:00→21:58)
[2019-06-24] MEDS: SPIRONOLACTONE 50 MG TAB PO SCH (09:00)
[2019-06-24] MEDS: BUDESONIDE 180MCG INHALER (PULMICORT FLEXHALER) INH SCH ×2 (11:51→20:00)
[2019-06-24] MEDS: TIOTROPIUM INHALER/CAPSULE (SPIRIVA) INH SCH (11:51)
--- NOTE | 2019-06-24 12:49 | IPNPDOC ---
Text Note Date of Service The patient was seen on 06/24/19. NOTE Subjective: Patient stated that his breathing better today. Oxygen saturation during walking from 89-94%. He denies any fever or chills, nausea or vomiting, palpitations Objective: PHYSICAL EXAMINATION: VITAL SIGNS: Please see below. General: Mild distress, Alert Eyes: Normal sclera, EOMI, PERRLA HEENT: Atraumatic, neck supple Cardiovascular: Normal rate, normal rhythm Pulmonary: Clear to auscultation b/l, no wheezing GI: Soft, nontender Skin: Warm and dry Neuro: CN grossly intact. No focal deficits. Strengths equal b/l. Psych: oriented x 3 Assessment and plan Patient is 69 years old white male with past medical history of interstitial lung diseases, on chronic oxygen therapy, hypertension, diabetes presented hospital with shortness of breath secondary to pneumonia. Sepsis Patient has leukocytosis on admission of 15.3, respiration rate of 20, creatinine 1.9, and pulse 91. Patient complained of increased sputum production and cough Resolved Most likely secondary to pneumonia, however CT does not reveal significant changes, procalcitonin 0.2. Patient clinically improved on the antibiotic therapy Patient is afebrile, no leukocytosis for now Vancomycin was discontinued, patient is MRSA negative I changed Zosyn for levofloxacin Blood culture negative Respiratory panel was negative Incentive spirometer 2. 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 O2 support as needed Appreciate/agree with equip maint eng recommendation Patient has allergy to albuterol. I started inhalers budesonide and ipratropium 3. HTN - Monitor BP. Resume home meds. 4. DM - c/w ISS. Glucose levels under control 5. Afib Heart rate is under control today. Continue beta taylor to 25 twice a day On warfarin Continue to monitor INR. 6. HFpEF Continue cardioprotective medications 7. Deconditioning PT/OT evaluation VS,Abdiel, I+O VS, Abdiel, I+O Laboratory Tests 06/24/19 05:24 Red Blood Count 4.83, Mean Corpuscular Volume 79.9 L, Mean Corpuscular Hemoglobin 25.3 L, Mean Corpuscular Hemoglobin Concent 31.6 L, Red Cell D istribution Width 16.3 H, Calcium Level 9.4 Vital Signs Date Time Temp Pulse Resp B/P (MAP) Pulse Ox O2 Delivery O2 Flow Rate FiO2 06/24/19 09:30 1.0 06/24/19 09:00 70 95/65 06/24/19 06:00 97.1 15 91 06/21/19 01:10 BIPAP/CPAP 06/20/19 02:39 92 I&O- Last 24 Hours up to 6 AM 06/24/19 06:00 Intake Total 1930 ml Output Total 325 ml Balance 1605 ml JUAN CANADA DO Jun 24, 2019 12:49
[2019-06-24 13:46] LABS: INR 2.18
[2019-06-24 14:00] VITALS: BP 105/74
--- NOTE | 2019-06-24 15:13 | REP ---
PA and lateral chest: Comparisons are 06/20/2019, 05/03/2020, 10/18, 04/27/2019 and 12/22/2015. There is some bilateral infiltrates have significantly improved are almost entirely resolved. The lung arch[place] otherwise clear. There are multiple old right rib fractures and a faintly visible surgical suture line in the right mid lung, unchanged. Cardiac size is normal. The chicho, mediastinum, skeletal structures are unremarkable. Impression: Significant improvement in the recent bilateral infiltrates. Electronically Signed by Bill Ley MD 06/24/2019 03:05 P
--- NOTE | 2019-06-24 15:35 | CR ---
DATE OF CONSULTATION: 06/24/2019 The pulmonary team was asked by the medicine team for consultation on Mr. Rajesh Quintero. Mr. Quintero is a 69-year-old male admitted to [facility] with shortness of breath and is currently being treated for pneumonia. The patient is currently on oral prednisone and oral Levaquin for treatment of possible pneumonia. The patient gives a history of being admitted on 06/20/2019 after a week-long history of increasing shortness of breath. The patient states that approximately a week prior to his admission, his diuretic was discontinued by an outpatient doctor. The patient stated about 5 days later, he was developing increasing shortness of breath thought maybe he was having heart failure related to being off of diuretic. He states he did take at least one dose of diuretic on Saturday or , but by Saturday, when he was continued feel worse, he came to the emergency department at [facility] and was admitted with dyspnea. There was concern of a pneumonia and he was treated for pneumonia. He does state that he has been progressively improving but still does not feel he is back to normal. He notes he still continues to have some dyspnea. He also notes lower extremity edema. He states he really has not been good about weighing himself at home and therefore it is uncertain if he has gained weight but he believes he has not lost any weight. He did have a fever early in the admission. He denies any known fevers as an outpatient prior to coming in but states he did have chills. He notes he has had some increased coughing around the time that he was coming in and states he did cough up a few flecks of blood but for the most part it was of clearish frothy cough. He denies any other recent respiratory illnesses. The patient does have a history of congestive heart failure and did have a echocardiogram done in 2014 that did show severe left atrial dilation. 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 [facility] with [facility] and states he has been seen by pulmonary at the [facility] but states the last few times that he has had appointments, he has been hospitalized in therefore has had to reschedule his appointments. He was told that he may have possible hemosiderosis but according to the biopsy reports, there was no chronic scarring. Therefore, it is unclear whether or not he truly does have hemosiderosis. Additionally, he is on outpatient iron. During the course of his hospitalization. His home dose is of Aldactone 100 mg daily and metolazone 2.5 mg daily. He has not been reinitiated on furosemide but states that was the medication that he was taken off as an outpatient prior to coming in. The patient has a remote history of smoking stating he quit 35 years ago after smoking a pack a day for about 12 years. He was in [place] and states he was exposed to agent [place] and has some cutaneous manifestations related to that. The patient's BNP was elevated at 1260. In reviewing previous admissions, he has had fluctuations in BNP, which have never been as high as they currently are. However, some of the older BNPs had a different methodology in performing the test. REVIEW OF SYSTEMS: GEN: The patient denies any current fevers or chills. Denies any unexplained weight loss. HEENT: The patient denies nosebleeds, sore throats or headaches. CARDIAC: The patient does have increased lower extremity edema. He denies any current chest pain or palpitations. PULMONARY: The patient has shortness of breath and has had some coughing. otherwise as HPI. GI: The patient denies nausea, vomiting, diarrhea, constipation, bright red blood per rectum or hematemesis. : The patient denies any urinary symptoms. Denies dysuria or hematuria. HEMATOLOGY: The patient denies any current bleeding issues. States he does have a history of blood transfusion. Integumentary: No rashes, jaundice or bruising. No new skin lesions. PSYCH: The patient denies any suicidal thoughts. Does have a history of posttraumatic stress disorder (PTSD). MUSCULOSKELETAL: The patient notes chronic pain but denies any significant joint swelling. SLEEP: The patient does have a history of obstructive sleep apnea (LAKESHIA) and uses CPAP. PAST MEDICAL HISTORY: The patient has indications of history of chronic alveolar hemorrhage based on biopsy. Possible hemosiderosis but will have to wait on getting his records from the [facility]. History of anemia. History of PTSD Diverticulitis. Hypertension. Atrial fibrillation on Coumadin. Obstructive sleep apnea. MEDICATIONS: Home medication list includes: - bupropion 150 mg by mouth daily - Colace 100 mg twice a day - ferrous gluconate 325 mg twice a day - finasteride 5 mg daily - glipizide 2.5 mg daily - metolazone 2.5 mg daily - metoprolol tartrate 12.5 mg twice a day. - omeprazole 40 mg daily - KCL 40 mEq daily - sertraline 200 mg daily - Zocor 40 mg daily - spironolactone 100 mg daily - terazosin 10 mg daily - warfarin 2.5 mg daily - vitamin C - vitamin D SOCIAL HISTORY: Patient is an ex-smoker having smoked a pack a day for 12 years quitting 35 years ago. The patient does not drink alcohol. The patient does not use illicit drugs. FAMILY MEDICAL HISTORY: Mother of pancreatic cancer. Father had coronary artery disease. Sister of ovarian cancer. ALLERGIES: ALBUTEROL, AMLODIPINE, ATENOLOL. PHYSICAL EXAMINATION: VITALS: Temperature is 97.1, pulse 70, respiratory rate 15, blood pressure is 95/65, pulse ox 91 on 1 liter. GENERAL: The patient is alert and oriented times three. Speaks in complete sentences. He is sitting up in a chair. HEENT: Head is normocephalic, atraumatic. Nonicteric, non-sclerotic. Pupils are equal, reactive. Moist mucous membranes. Tongue is midline. Edentulous. Mallampati I. NECK: Neck is supple. No cervical lymphadenopathy. No obvious jugular venous distention (JVD). Trachea is midline. PULMONARY: Clear to auscultation bilaterally. No wheezes, rales, rhonchi or crackles. No accessory muscle use. HEART: Irregular S1, S2 no obvious murmurs. ABDOMEN: Positive bowel sounds, soft, nontender. Protuberant abdomen. No obvious hepatosplenomegaly. However body habitus does make it difficult. EXTREMITIES: The patient does have 1+ pitting edema bilateral lower extremities. SKIN: Skin is warm and dry. The patient does have scattered subcutaneous nodules. NEURO: Nonfocal. LABS: WBC 9.2, hemoglobin 12.2, hematocrit 38.6, platelets 247. Sodium 137, potassium 3.2, chloride 102, carbon dioxide 23, BUN 38, creatinine 1.64, glucose 118, calcium 9.4, magnesium 2.0. Chest x-ray from 06/20/2019 does show increased vascular markings. There is questionable cardiomegaly. There is some increased AP diameter. Abdominal CT done on 06/20/2019 was also reviewed and show some pulmonary edema at the bilateral lung bases. No pulmonary fibrosis seen on the abdominal CT. EKG shows atrial fibrillation and low voltage. ASSESSMENT: 1. Hypoxia. 2. Abnormal chest x-ray. 3. Alveolar hemorrhage. 4. Congestive heart failure. The patient's dyspnea is likely related to congestive heart failure. He had his diuretic stopped a week prior to coming to the hospital and that is when his symptoms started. He does have a history of alveolar hemorrhage, which is likely related to past episode of congestive heart failure and the abnormal chest x-ray supports congestive heart failure. Furthermore the patient's BNP was elevated at 1260 and looks like it has been intermittently elevated in the past for previous admissions for which he was treated for congestive heart failure. Does seem to be higher than it had been at other times, but part of that may be due to testing methodology. He is also currently being treated for a respiratory infection and at this point because it is late in the course of treatment, it cannot be determined if he does indeed have a respiratory infection so he will complete the course of antibiotics and prednisone at present time. [facility] There is also concern for possible hemosiderosis but it does appear that this is most likely chronic alveolar hemorrhage as there was no chronic scarring which would be more indicative of possible hemosiderosis. However, he currently is on iron, which should be discontinued if there is concern of hemosiderosis. Workup in 2004 did include a negative ANCA panel as well as negative anti-GBM also further supporting heart failure etiology for the alveolar hemorrhage. Continue attempts to his diuresis should be continued. IV fluids and should be should be avoided. Advise continued treatment for heart failure. We will continue to follow along with this patient. ADDENDUM TO CONSULTATION: DATE OF SERVICE: 06/24/2019 Sim Pritchard independently interviewed and examined this patient in conjunction with Abraham Matthew. We have discussed at length the differential diagnosis as outlined above, CT imaging, and I even had a separate consultation with pathology to review old slides from prior lung biopsy. In summary, Mr. Rajesh Quintero is a 69-year-old male who had a week's worth of progressive shortness of breath after having his diuretics discontinued. He has known significant diastolic dysfunction based on echocardiogram. 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 At that time, biopsies were performed. There was no hayden capillaritis. I spoke with the pathologist personally who pulled the case and [place] pathology report for viewing. Also, there was significant amounts of old and new hemorrhage with hemosiderin laden macrophages. ANCA panel and anti-GBM panel at that point in time were unremarkable. He did have ground-glass abnormalities on chest imaging very similar to his presentation now. He has not had a ct scan of the lungs this admission. His last chest CT was August 2018. His last CAT scan of the chest was in 2018 in August, which shows ground-glass abnormalities but no fibrosis, no peripheral fibrosis, no honeycombing, no traction bronchiectasis. There are no findings consistent with idiopathic pulmonary fibrosis. The most recent echocardiogram that I have reviewed was in 2015, and even then had severe left atrial dilatation suggesting very high left-sided pressures consistent with pulmonary edema. It is very common to see bland alveolar hemorrhage in patients who are on anticoagulation in the setting of elevated left-sided pressures as they are presenting pulmonary edema course and the patient has lower extremity edema. Overall my initial suspicion of the most likely diagnosis on his differential is that of decompensated heart failure. Since I am seeing the patient at the end of his hospitalization not at the beginning, I cannot argue against the use of antibiotics in the beginning. Although, I do not see a dense infiltrate. This is more of a diffuse interstitial edema. I cannot argue against using antibiotics at this point in time as I was not present for the initial presentation. Interstitial lung disease remains in the differential and there is some mention of possible pulmonary hemosiderosis. However, the patient is being seen by a biotechnologist at the [facility] who has done other workup that I do not have access to and I would prefer reviewing these records prior to starting a new investigation that may have already been repeated multiple times. Therefore, [facility] would [facility] to review what they have done at this point in time, however, the patient is ambulating on 1 liter of oxygen via nasal cannula with oxygen saturations at 87% or above. He does not usually use oxygen therapy. I would attempt diuresis to see if this would help. He has been net positive his entire stay. Would consider tapering prednisone. We will continue to follow this patient. Addendum dictated: 06/24/2019 1429 Addendum transcribed: 06/24/2019 1504 vineet GRIMM
[2019-06-24] MEDS: FUROSEMIDE 40 MG/4 ML VIAL (J1940) IV SCH ×2 (15:59→21:58)
[2019-06-24] MEDS: WARFARIN SOD 2.5 MG TAB PO SCH (16:01)
[2019-06-24] MEDS: SIMVASTATIN 40 MG TAB PO SCH (21:58)
[2019-06-24] MEDS: TERAZOSIN 5 MG CAP PO SCH (21:59)
[2019-06-24 22:00] VITALS: BP 119/80
[2019-06-25] MEDS: FUROSEMIDE 40 MG/4 ML VIAL (J1940) IV SCH (03:19)
[2019-06-25] MEDS: LevoFLOXacin 750 MG TABLET PO SCH (05:45)
[2019-06-25 06:00] VITALS: BP 114/78
[2019-06-25 06:01] LABS: HEMATOCRIT 40.5 % (42.0-52.0); HEMOGLOBIN 13.3 g/dl (13.5-17.5); MEAN CORPUSCULAR HEMOGLOBIN 25.3 pg (27.0-33.0); MEAN CORPUSCULAR HGB CONC 32.8 g/dl (32.0-36.5); MEAN CORPUSCULAR VOLUME 77.1 fl (80.0-96.0); PLATELET COUNT, AUTOMATED 297 10^3/uL (150-450); RED BLOOD COUNT 5.25 10^6/uL (4.30-6.10); WHITE BLOOD COUNT 9.6 10^3/uL (4.0-10.0)
[2019-06-25 06:35] LABS: CALCIUM LEVEL 9.4 MG/DL (8.8-10.2); CREATININE FOR GFR 1.95 MG/DL (0.70-1.30); GLOMERULAR FILTRATION RATE 36.4 (>42); POTASSIUM SERUM 2.8 MEQ/L (3.5-5.1)
[2019-06-25] MEDS ORDERED: POTASSIUM CHLORIDE 10 MEQ SR TABLET PO ONE (07:15)
[2019-06-25] MEDS: TIOTROPIUM INHALER/CAPSULE (SPIRIVA) INH SCH (07:50)
[2019-06-25] MEDS: BUDESONIDE 180MCG INHALER (PULMICORT FLEXHALER) INH SCH ×2 (07:50→20:32)
[2019-06-25] MEDS ORDERED: KCL 40MEQ in NS 1000ML 1,000 ML IV SCH (08:00)
--- NOTE | 2019-06-25 08:47 | IPNPDOC ---
Text Note Date of Service The patient was seen on 06/25/19. NOTE HPI: Pt was examined at bedside today. He reported improvement of cough, and reported the cough is now non-productive and denied coughing up any blood. He said he still has feelings of SOB during activity, but it was noted that there was no oxygen desaturation as he walk. He feels that his leg swellings are still about the same compared to yesterday. Pt denies any fever, chills, lightheadedness, or dizziness ROS: General: denies any fever, chills, lightheadedness, or dizziness Heart: denies chest pain or palpitation Lung: Exertional dyspnea. Non-productive cough/denies coughing up blood Abdomen: denies any abdominal pain, abdominal bloating Extremities: Mild bilateral lower extremity edema Physical examination General: Patient is alert and awake, not in acute distress HEENT: NC in place, head normocephalic, atraumatic, no conjunctiva injection or scleral icterus Heart: A. fib, regular rhythm, no murmur Lungs: CTA b/l, no rales, wheezing, or rhonchi. No accessory muscle use or retractions noted Abdomen: Soft. Obese and protrudent abdomen. No tenderness upon palpation in all quad, no guarding or distention. Extremities: 1+ edema with minimal pitting in bilateral lower extremities Assessment 1. Alveolar hemorrhage secondary to congestive heart failure 2. Exertional hypoxia 3. Abnormal chest x-ray. 4. Congestive heart failure with pulmonary edema Plan: Alveolar hemorrhage likely 2/2 pt's congestive heart failure. It was noted that pt has been saturating above 90% today. Pt reported dyspnea while walking yesterday and he desaturated to 87%. His CXR yesterday afternoon showed bilateral infiltrates have significantly improved are almost entirely resolved. Pt reported Improving cough with no sputum/blood production. Pt had been on Metolazone 2.5mg daily. Lasix 40mg Q6H IV was added yesterday but was d/c today. Pt's spironolactone was held yesterday but was resumed today. Pt continue to be on 40mg QD prednisone as at this time it is unable to determine whether pt's has idiopathic pulmonary hemosiderosis or respiratory infection; outpatient medical records from [place] [facility] still pending for past alveolar hemorrhage workup. His home medication ferrous gluconate was discontinued as pt should not be on iron supplement if he has hemosiderosis. It is unable to determine whether patient has respiratory infection as it is already late in the course thus cannot argue against antibiotics use; it is noted that pt had been switched from Zosyn to Levaquin. Pt had been having pos urine output since admission and had a neg 600ml urine output yesterday. It is noted that he had hypokalemia but denies any any complaints except for exertional dyspnea and non- productive cough. Last BNP 713, will recheck BNP at 11AM today. Work up for alveolar hemorrhage including PAUL, anti-ds ab, anti-histone ab, anti-TTG, and iron studies were ordered. I, Edelmira Issa, agree with what is outlined above after my personal history and physical. I believe the patient has pulmonary hemorrhage from volume overload. Elevated BNP consistent with suspicion along with recent diuretic de-escalation. Awaiting work up from [facility]. VS,Ninae, I+O VS, Ninae, I+O Laboratory Tests 06/25/19 05:27 Red Blood Count 5.25, Mean Corpuscular Volume 77.1 L, Mean Corpuscular Hemoglobin 25.3 L, Mean Corpuscular Hemoglobin Concent 32.8, Red Cell Distribution Width 16.2 H, Calcium Level 9.4 Vital Signs Date Time Temp Pulse Resp B/P (MAP) Pulse Ox O2 Delivery O2 Flow Rate FiO2 06/25/19 06:00 96.6 89 18 114/78 (90) 95 1.0 06/21/19 01:10 BIPAP/CPAP 06/20/19 02:39 92 I&O- Last 24 Hours up to 6 AM 06/25/19 06:00 Intake Total 1050 ml Output Total 2350 ml Balance -1300 ml MEGAN FOUNTAIN DO Jun 25, 2019 08:47 EDELMIRA ISSA DO F.C.C.P Jun 30, 2019 15:59
[2019-06-25] MEDS: DOCUSATE SODIUM 100 MG CAP PO SCH ×2 (08:55→20:18)
[2019-06-25] MEDS: OMEPRAZOLE 20 MG CAP PO SCH (08:55)
[2019-06-25] MEDS: metOLazone 2.5 MG TAB PO SCH (08:58)
[2019-06-25] MEDS: SERTRALINE 100 MG TAB PO SCH (08:58)
[2019-06-25] MEDS: predniSONE 20 MG TAB PO SCH (08:58)
[2019-06-25] MEDS: buPROPion **SR TABLET** (ZYBAN) 150MG PO SCH (08:59)
[2019-06-25] MEDS: FINASTERIDE 5 MG TAB PO SCH (08:59)
[2019-06-25] MEDS: SPIRONOLACTONE 50 MG TAB PO SCH (08:59)
[2019-06-25] MEDS: VITAMIN D 1,000 INTERNATIONAL UNITS TABLET PO SCH (09:00)
[2019-06-25] MEDS: METOPROLOL TART 25 MG TABLET PO SCH ×2 (09:03→20:19)
[2019-06-25] MEDS: CLOTRIMAZOLE 1% TOPICAL CREAM 30GM TOP SCH ×2 (09:04→20:20)
[2019-06-25 12:30] LABS: INR 2.03; PROTHROMBIN TIME 22.7 SECONDS (11.8-14.0)
[2019-06-25 13:02] LABS: CALCIUM LEVEL 9.1 MG/DL (8.8-10.2); CREATININE FOR GFR 2.22 MG/DL (0.70-1.30); GLOMERULAR FILTRATION RATE 31.3 (>42); PERCENT SATURATION 55.7 % (19.7-50.0); POTASSIUM SERUM 3.6 MEQ/L (3.5-5.1)
[2019-06-25 14:00] VITALS: BP 116/78
--- NOTE | 2019-06-25 17:00 | IPNPDOC ---
Text Note Date of Service The patient was seen on 06/25/19. NOTE Subjective: Patient is off oxygen today, walking with good oxygen saturation.. He denies any fever or chills, nausea or vomiting, palpitations Objective: PHYSICAL EXAMINATION: VITAL SIGNS: Please see below. General: Mild distress, Alert Eyes: Normal sclera, EOMI, PERRLA HEENT: Atraumatic, neck supple Cardiovascular: Normal rate, normal rhythm Pulmonary: Clear to auscultation b/l, no wheezing GI: Soft, nontender Skin: Warm and dry Neuro: CN grossly intact. No focal deficits. Strengths equal b/l. Psych: oriented x 3 Assessment and plan Patient is 69 years old white male with past medical history of interstitial lung diseases, on chronic oxygen therapy, hypertension, diabetes presented hospital with shortness of breath secondary to pneumonia. Sepsis Patient has leukocytosis on admission of 15.3, respiration rate of 20, creatinine 1.9, and pulse 91. Patient complained of increased sputum production and cough Resolved Most likely secondary to pneumonia, however CT does not reveal significant changes, procalcitonin 0.2. 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 I started inhalers budesonide and ipratropium for COPD exacerbation alveolar hemorrhage Unclear etiology for now Could be secondary to vasculitis, pulmonary hypertension PAUL, anti-ds ab, anti-histone ab, anti-TTG, and iron studies were ordered. Echo HTN - Monitor BP. Resume home meds. DM - c/w ISS. Glucose levels under control Afib Heart rate is under control today. Continue beta taylor to 25 twice a day On warfarin Continue to monitor INR. HFpEF Continue cardioprotective medications I held Lasix for today, patient developed hypokalemia of 2.8 Continue I's and O's Hypokalemia Replaced Deconditioning PT/OT evaluation VS,Fishbone, I+O VS, Fishbone, I+O Laboratory Tests 06/25/19 05:27 Red Blood Count 5.25, Mean Corpuscular Volume 77.1 L, Mean Corpuscular Hemoglobin 25.3 L, Mean Corpuscular Hemoglobin Concent 32.8, Red Cell Distribution Width 16.2 H, Calcium Level 9.4 06/25/19 11:46 Calcium Level 9.1 Vital Signs Date Time Temp Pulse Resp B/P (MAP) Pulse Ox O2 Delivery O2 Flow Rate FiO2 06/25/19 14:00 97.0 66 18 116/78 (91) 93 06/25/19 06:00 1.0 06/21/19 01:10 BIPAP/CPAP 06/20/19 02:39 92 I&O- Last 24 Hours up to 6 AM 06/25/19 06:00 Intake Total 1050 ml Output Total 2350 ml Balance -1300 ml JUAN CANADA DO Jun 25, 2019 17:00
[2019-06-25] MEDS: WARFARIN SOD 2.5 MG TAB PO SCH (17:17)
[2019-06-25] MEDS: TERAZOSIN 5 MG CAP PO SCH (20:17)
[2019-06-25] MEDS: SIMVASTATIN 40 MG TAB PO SCH (20:19)
[2019-06-25 22:00] VITALS: BP 118/77
[2019-06-26 06:00] VITALS: BP 100/61
[2019-06-26 06:10] LABS: HEMATOCRIT 40.7 % (42.0-52.0); MEAN CORPUSCULAR HEMOGLOBIN 25.2 pg (27.0-33.0); MEAN CORPUSCULAR HGB CONC 31.9 g/dl (32.0-36.5); MEAN CORPUSCULAR VOLUME 78.9 fl (80.0-96.0); PLATELET COUNT, AUTOMATED 289 10^3/uL (150-450); RED BLOOD COUNT 5.16 10^6/uL (4.30-6.10); WHITE BLOOD COUNT 10.4 10^3/uL (4.0-10.0)
[2019-06-26] MEDS: LevoFLOXacin 750 MG TABLET PO SCH (06:19)
[2019-06-26 06:30] LABS: CALCIUM LEVEL 9.1 MG/DL (8.8-10.2); CREATININE FOR GFR 2.02 MG/DL (0.70-1.30); GLOMERULAR FILTRATION RATE 34.9 (>42); MAGNESIUM LEVEL 1.9 MG/DL (1.8-2.4); POTASSIUM SERUM 2.9 MEQ/L (3.5-5.1)
[2019-06-26] MEDS: BUDESONIDE 180MCG INHALER (PULMICORT FLEXHALER) INH SCH (07:27)
[2019-06-26] MEDS: TIOTROPIUM INHALER/CAPSULE (SPIRIVA) INH SCH (07:27)
[2019-06-26] MEDS: buPROPion **SR TABLET** (ZYBAN) 150MG PO SCH (09:09)
[2019-06-26] MEDS: metOLazone 2.5 MG TAB PO SCH (09:09)
[2019-06-26] MEDS: SPIRONOLACTONE 50 MG TAB PO SCH (09:10)
[2019-06-26] MEDS: FINASTERIDE 5 MG TAB PO SCH (09:10)
[2019-06-26] MEDS: predniSONE 20 MG TAB PO SCH (09:10)
[2019-06-26] MEDS: SERTRALINE 100 MG TAB PO SCH (09:10)
[2019-06-26] MEDS: POTASSIUM CHLORIDE 10 MEQ SR TABLET PO SCH ×3 (09:10→11:18)
[2019-06-26] MEDS: OMEPRAZOLE 20 MG CAP PO SCH (09:11)
[2019-06-26] MEDS: DOCUSATE SODIUM 100 MG CAP PO SCH (09:12)
[2019-06-26] MEDS: VITAMIN D 1,000 INTERNATIONAL UNITS TABLET PO SCH (09:12)
[2019-06-26 09:13] VITALS: BP 116/72
[2019-06-26] MEDS: CLOTRIMAZOLE 1% TOPICAL CREAM 30GM TOP SCH (09:13)
[2019-06-26] MEDS: METOPROLOL TART 25 MG TABLET PO SCH (09:13)
[2019-06-26] MEDS ORDERED: PRED5PAK2 PO (11:30)
[2019-06-26] MEDS ORDERED: BUDE180INH INH (11:30)
[2019-06-26] MEDS ORDERED: TIOT18INH INH (11:30)
[2019-06-26] MEDS ORDERED: CLOTR1CR TOP (11:30)
--- NOTE | 2019-06-26 12:15 | CCN ---
DATE: 06/26/2019 PULMONARY PROGRESS NOTE: The patient was seen and examined this morning during rounds. He reports his shortness of breath and breathing has improved. He does still have some dyspnea with exertion but he was able to walk around with physical therapy without any significant desaturation and he has been weaned off of oxygen supplementation. The patient's cough has also improved as well, has not had any hemoptysis. No chest pains. No fevers or chills. His leg swelling has improved as well since his admission. PHYSICAL EXAMINATION: Temperature 96.5, pulse 71, respirations 20, blood pressure 100/61, oxygen saturation 92% on room air. In 1.6 liters, out 2 liters, net negative 500 mL. General: The patient is an obese male who is sitting in a chair awake and alert and oriented, not in any acute respiratory distress. HEENT: Normocephalic, atraumatic. Moist mucous membranes. Neck is supple. No palpable adenopathy. Cardiovascular: Irregularly irregular. Normal S1, S2. Unable to appreciate any murmurs. Pulmonary: Clear to auscultation bilaterally. No wheezing, rales or rhonchi. No accessory muscle use noted. Abdomen is soft, obese and protuberant. There is no tenderness to palpation. Extremities: There is trace lower extremity edema bilaterally in the lower extremities. Evidence of some chronic hyperpigmentation and venous stasis changes. LABORATORY DATA: WBC 10.4, hemoglobin 13.0, platelets 289. Chemistry: Sodium is 138, potassium is 2.9, chloride 101, bicarbonate 26, BUN 57, creatinine 2.02, glucose is 137. Repeat BNP yesterday trending down to 422. No new imaging to review. ASSESSMENT AND PLAN: Mr. 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 He reported that to his prior admission that one of his diuretics was discontinued by an outpatient physician. 5 days later, he had developed worsening of his shortness of breath and lower extremity edema. Patient thought that he may have been having decompensation of his heart failure and so he attempted to take a dose of his diuretics. However, after 2 days, he continued to have worsening shortness of breath and then presented to [facility]. The patient presented to the emergency department (ED) in the evening of 06/19/2019 where he was admitted and initially treated with antibiotics for pneumonia as on admission he did have some leukocytosis as well as a fever. The patient's initial chest x-ray showed evidence of bilateral alveolar opacities. He did report some slight improvement in his cough. However, he continued to have dyspnea and continued to require nasal cannula oxygen supplementation, which he was not previously on before. The patient had not been restarted on his Lasix for diuresis and he was net positive. The patient's brain natriuretic peptide (BNP) was elevated at 1260. He was then started on Lasix for diuresis, and he reports with the Lasix that his breathing did significantly improve as well as his lower extremity edema. He was able to be weaned off of the nasal cannula oxygen supplementation after diuresis and a repeat chest x-ray showed significant improvement in the alveolar opacities. Therefore, given the rapid improvement on imaging suspect that his episodes of hemoptysis and ground-glass opacities are related to pulmonary edema. As he is on anticoagulation, he may be having alveolar hemorrhaging contributing to the ground-glass opacities as well as fluid. He had previously had biopsies done in 2004, which showed bland alveolar hemorrhage with no evidence of capillaritis, which can be consistent with pulmonary edema while on anticoagulation. Anti-GBM antibodies and ANCA panels were negative at that time. Lupus may occasionally present with some bland alveolar hemorrhage, although this is less likely. Idiopathic pulmonary hemosiderosis is also possible, although his last CT in 2018 did not have evidence of significant fibrosis or honeycombing, which you would expect with more chronic episodes of idiopathic pulmonary hemosiderosis. His last echocardiogram did show evidence of left atrial dilation as well as trace mitral regurgitation (MR) and moderate pulmonary systolic pressure elevation. - Suspect the patient's acute presentation was secondary to decompensated heart failure. He did have a leukocytosis and slight fever on admission, so possible infectious etiology such as more atypical pneumonia is possible as his procalcitonin initially was low, but he did receive a week of antibiotics since his admission, therefore, would discontinue any further antibiotics at this time. - Would continue patient with diuretics as an outpatient. He reports he has a history of hypokalemia and is on potassium supplementation of 80 mEq by mouth daily. He would need to have potassium supplementation upon discharge in addition to his diuretics. - Would consider repeating an echocardiogram as he had not had one recently to evaluate for valvular disease or diastolic dysfunction contributing to his decompensated heart failure. 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 Usually the imaging findings with alveolar hemorrhage secondary to idiopathic pulmonary hemosiderosis will take a month or two of steroids before there is resolution. As his imaging resolved quickly, suspect this is less likely. Therefore, would discontinue steroids. He denies a previous history of chronic obstructive pulmonary disease (COPD), has never been on any inhalers in the past. The patient can followup with pulmonary as an outpatient for pulmonary function testing to see if he has any component of COPD. He is a former smoker, although had only smoked for 12 years and quit 35 years ago. - Would await records from his oracle brm developer at the [facility] before repeating additional testing for workup of possible interstitial lung disease. His PAUL and WINDOWS APPLICATION PACKAGER, double-strand DNA anti histone antibody and tissue transglutaminase IgA are pending. Would followup results of that. - Patient can followup with pulmonary in 2-3 weeks after his discharge with pulmonary function testing. Deep venous thrombosis (DVT) prophylaxis, on Coumadin. Please do not hesitate to call if any further questions or concerns MTDD
[2019-06-26] MEDS: WARFARIN SOD 2.5 MG TAB PO SCH (16:23)
--- NOTE | 2019-06-26 18:30 | ECHO ---
DATE OF PROCEDURE: 06/26/2019 AGE: 69 GENDER: Male HEIGHT: 69 inches WEIGHT: 260 pounds BODY SURFACE AREA: 2.31 m2 PATIENT LOCATION: Inpatient, [address] [place] [address], room 4235 REFERRING PHYSICIAN: Charles Urban DO INDICATION: Heart failure (unspecified). 2-D MEASUREMENTS: RV: 4.8 cm LV: 5.0 cm Septum: 1.2 cm Posterior wall: 1.2 cm Aortic root: 3.4 cm LA: 4.2 cm LVEF: 65% DOPPLER MEASUREMENTS: AV: 1.1 m/s LVOT: 0.8 m/s LVOT diameter: 2.1 cm MV-E: 75 Early mitral deceleration time: 222 ms E prime: 6.7, E/E prime ratio: 11 PCWP: 13.7 mmHg PV: 0.75 m/s Pulmonary artery acceleration time: 80 ms PASP: 47 mmHg IVC: 1.60 cm COMMENTS Underlying atrial fibrillation with controlled ventricular response. No intraventricular conduction disturbance. Technically challenging study in light of the patient's body habitus but diagnostically useful information was still obtained. M-mode and two-dimensional echocardiography was performed with pulsed, continuous wave, color flow and tissue Doppler studies. Borderline to mild left ventricle hypertrophy with normal wall motion. Mildly dilated left atrium. Unable to assess LV diastolic function with atrial fibrillation but current estimated mean left atrial pressor was upper limits of normal to only slightly increased. Moderately dilated right heart chambers with normal wall motion and Doppler evidence of at least moderate pulmonary hypertension. Normal IVC size with slightly reduced respiratory collapse suggestive of central venous pressure upper limits of normal. Aortic valvular sclerosis without functional valvular abnormality. The mitral valvular structures appeared to be normal without apparent functional abnormality. The tricuspid valve appeared to be normal and we are unable to detect any tricuspid insufficiency. Again because of his body habitus. Unable to detect any intracardiac mass. No pericardial effusion. Normal aortic root size.
--- NOTE | 2019-06-26 19:50 | DS.PDOC ---
Discharge Summary General Date of Admission Jun 20, 2019 at 02:06 Date of Discharge 06/26/19 Discharge Summary PROCEDURES PERFORMED DURING STAY: None. ADMITTING DIAGNOSES: 1. Sepsis Idiopathic lung disease alveolar hemorrhage HTN DM Afib HFpEF Hypokalemia Deconditioning DISCHARGE DIAGNOSES: Sepsis Idiopathic lung disease alveolar hemorrhage HTN DM Afib HFpEF Hypokalemia Deconditioning COMPLICATIONS/CHIEF COMPLAINT: Pneumonia. HISTORY OF PRESENT ILLNESS: : Mr. 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 He reported that to his prior admission that one of his diuretics was discontinued by an outpatient physician. 5 days later, he had developed worsening of his shortness of breath and lower extremity edema. Patient thought that he may have been having decompensation of his heart failure and so he attempted to take a dose of his diuretics. However, after 2 days, he continued to have worsening shortness of breath and then presented to [facility]. The patient presented to the emergency department (ED) in the evening of 06/19/2019 where he was admitted and initially treated with antibiotics for pneumonia as on admission he did have some leukocytosis as well as a fever. The patient's initial chest x-ray showed evidence of bilateral alveolar opacities. He did report some slight improvement in his cough. However, he continued to have dyspnea and continued to require nasal cannula oxygen supplementation, which he was not previously on before. The patient had not been restarted on his Lasix for diuresis and he was net positive. The patient's brain natriuretic peptide (BNP) was elevated at 1260. He was then started on Lasix for diuresis, and he reports with the Lasix that his breathing did significantly improve as well as his lower extremity edema. He was able to be weaned off of the nasal cannula oxygen supplementation after diuresis and a repeat chest x-ray showed significant improvement in the alveolar opacities. Therefore, given the rapid improvement on imaging suspect that his episodes of hemoptysis and ground-glass opacities are related to pulmonary edema. As he is on anticoagulation, he may be having alveolar hemorrhaging contributing to the ground-glass opacities as well as fluid. He had previously had biopsies done in 2004, which showed bland alveolar hemorrhage with no evidence of capillaritis, which can be consistent with pulmonary edema while on anticoagulation. Anti-GBM antibodies and ANCA panels were negative at that time. Lupus may occasionally present with some bland alveolar hemorrhage, although this is less likely. Idiopathic pulmonary hemosiderosis is also possible, although his last CT in 2018 did not have evidence of significant fibrosis or honeycombing, which you would expect with more chronic episodes of idiopathic pulmonary hemosiderosis. His last echocardiogram did show evidence of left atrial dilation as well as trace mitral regurgitation (MR) and moderate pulmonary systolic pressure elevation. - Suspect the patient's acute presentation was secondary to decompensated heart failure. He did have a leukocytosis and slight fever on admission, so possible infectious etiology such as more atypical pneumonia is possible as his procalcitonin initially was low, but he did receive a week of antibiotics since his admission, inhalers and oral prednisone with positive dynamics - Would continue patient with diuretics as an outpatient. He reports he has a history of hypokalemia and is on potassium supplementation of 80 mEq by mouth daily. He would need to have potassium supplementation upon discharge in addition to his diuretics. - Would consider repeating an echocardiogram as he had not had one recently to evaluate for valvular disease or diastolic dysfunction contributing to his decompensated heart failure. The patient can followup with pulmonary as an outpatient for pulmonary function testing to see if he has any component of COPD. He is a former smoker, although had only smoked for 12 years and quit 35 years ago. - His PAUL and PHARMACY RESIDENT, double-strand DNA anti histone antibody and tissue transglutaminase IgA are pending. Would followup results of that. - Patient can followup with pulmonary in 2-3 weeks after his discharge with pulmonary function testing. Deep venous thrombosis (DVT) prophylaxis, on Coumadin. HOSPITAL COURSE: see above DISCHARGE MEDICATIONS: Please see below. ALLERGIES: Please see below. PHYSICAL EXAMINATION ON DISCHARGE: VITAL SIGNS: Please see below. VITAL SIGNS: Please see below. General: Mild distress, Alert Eyes: Normal sclera, EOMI, PERRLA HEENT: Atraumatic, neck supple Cardiovascular: Normal rate, normal rhythm Pulmonary: Clear to auscultation b/l, no wheezing GI: Soft, nontender Skin: Warm and dry Neuro: CN grossly intact. No focal deficits. Strengths equal b/l. Psych: oriented x 3 LABORATORY DATA: Please see below. IMAGING: CT of the abdomen without IV or bowel contrast: The pelvis is not included. There are no comparison abdomen/pelvis CT studies. The visualized lung archuleta demonstrate diffuse bilateral ground-glass opacities. This is unchanged from a prior chest CT dated 09/29/2018. The unenhanced hepatic parenchyma is unremarkable. The gallbladder, pancreas, spleen, adrenals and kidneys are unremarkable except for the kidneys appearing somewhat atrophic. There is no hydronephrosis. The abdominal aorta is unremarkable. The visualized bowel loops are unremarkable. The appendix is visualized and is unremarkable. The visualized mesentery is unremarkable. Impression: There are ground-glass opacities in the visualized lower lung archuleta, unchanged from a chest CT of 09/29/2018. Otherwise, negative CT study of the abdomen except for probable renal cortical atrophy bilaterally. The pelvis is not included. PROGNOSIS: Favorable ACTIVITY: As tolerated. DIET: Cardiac DISCHARGE PLAN: Follow-up with chain builder loom control, PCP DISPOSITION: Home, Self-Care. DISCHARGE INSTRUCTIONS: Repeat BMP and CBC in 3 days DISCHARGE CONDITION: Stable. TIME SPENT ON DISCHARGE: Greater than 35 minutes. Vital Signs/I&Os Vital Signs Date Time Temp Pulse Resp B/P (MAP) Pulse Ox O2 Delivery O2 Flow Rate FiO2 06/26/19 09:30 1.0 06/26/19 09:13 88 116/72 06/26/19 06:00 96.5 20 93 06/21/19 01:10 BIPAP/CPAP 06/20/19 02:39 92 I&O- Last 24 Hours up to 6 AM 06/26/19 06:00 Intake Total 1350 ml Output Total 1275 ml Balance 75 ml Laboratory Data Labs 24H Laboratory Tests 2 06/26/19 05:36: Nucleated Red Blood Cells % (auto) 0.0, Anion Gap 11, Glomerular Filtration Rate 34.9L, Blood Urea Nitrogen 57H, Creatinine 2.02H, Sodium Level 138, Potassium Level 2.9*L, Chloride Level 101, Carbon Dioxide Level 26, Calcium Level 9.1, Magnesium Level 1.9 CBC/BMP Laboratory Tests 06/26/19 05:36 Red Blood Count 5.16, Mean Corpuscular Volume 78.9 L, Mean Corpuscular Hemoglobin 25.2 L, Mean Corpuscular Hemoglobin Concent 31.9 L, Red Cell Distribution Width 16.2 H, Calcium Level 9.1 Microbiology Microbiology 06/20/19 MRSA Screen - Final, Complete 06/20/19 Respiratory Virus Panel (PCR) (JULIEN) - Final, Complete 06/20/19 Blood Culture - Final, Complete NO GROWTH AFTER 5 DAYS 06/20/19 Blood Culture - Final, Complete NO GROWTH AFTER 5 DAYS Discharge Medications Scheduled Ascorbic Acid (Vitamin C) 250 Mg Tablet, 250 MG PO DAILY, (Reported) Budesonide (Pulmicort Flexhaler) 180 Mcg Aer.pow.ba, 2 PUFF INH RBID Bupropion Hcl (Bupropion HCl Sr) 150 Mg Tab, 150 MG PO DAILY, (Reported) Cholecalciferol (Vitamin D3) (Vitamin D3) 1,000 Unit Tab, 1,000 UNIT PO DAILY, (Reported) Clotrimazole (Clotrimazole) 30 Gm Cream..g., 0 DOSE TOP BID Docusate Sodium (Docusate Sodium) 100 Mg Cap, 200 MG PO BID, (Reported) Ferrous Gluconate (Ferrous Gluconate) 324 Mg Tab, 648 MG PO BID, (Reported) Finasteride (Finasteride) 5 Mg Tab, 5 MG PO DAILY, (Reported) Glipizide (Glipizide) 5 Mg Tab, 2.5 MG PO DAILY, (Reported) TAKES BEFORE BREAKFAST Metolazone (Metolazone) 2.5 Mg Tablet, 2.5 MG PO DAILY, (Reported) Metoprolol Tartrate (Metoprolol Tartrate) 25 Mg Tab, 12.5 MG PO BID, (Reported) Omeprazole (Omeprazole) 20 Mg Tab, 40 MG PO DAILY, (Reported) Potassium Chloride (Potassium Chloride) 10 Meq Capsule.er, 40 MEQ PO BID, (Reported) Prednisone (Prednisone) 5 Mg Tab.ds.pk, 0 PO ASDIRECTED 6 day dose pack taper Sertraline HCl (Sertraline HCl) 100 Mg Tab, 200 MG PO DAILY, (Reported) Simvastatin (Zocor) 80 Mg Tablet, 40 MG PO QHS, (Reported) Spironolactone (Spironolactone) 50 Mg Tablet, 100 MG PO DAILY, (Reported) Terazosin Hcl (Terazosin HCl) 10 Mg Cap, 10 MG PO QHS, (Reported) Tiotropium [place] Monohydrate (Spiriva) 18 Mcg Cap.w.dev, 1 INHALATION INH TO Y@08 Warfarin Sodium (Warfarin Sodium) 2.5 Mg Tablet, 2.5 MG PO QHS, (Reported) Scheduled PRN Acetaminophen (Tylenol Extra Strength) 500 Mg Tablet, 1,000 MG PO Q6H PRN for PAIN / FEVER, (Reported) Allergies Coded Allergies: albuterol (Verified Allergy, Unknown, 04/27/19) amlodipine (Verified Allergy, Unknown, 04/27/19) atenolol (Verified Allergy, Unknown, 04/27/19) JUAN CANADA DO Jun 26, 2019 19:50
[2019-06-30 14:59] LABS: ANTI-HISTONE ANTIBODIES 0.8 Units (0.0-0.9); ANTINUCLEAR ANTIBODIES DIRECT Negative (Negative); RNP ANTIBODIES <0.2 AI (0.0-0.9); SMITH ANTIBODIES <0.2 AI (0.0-0.9)
== END 2019-06-26 17:06 | disposition home or self-care (01) | DRG 871 ==
LOC: M ED 23:06 → M ED INP 06-20 02:06 → M MSPAV 06-20 16:33
PROVIDERS: ADMIT Internal Medicine; ATTEND Internal Medicine
DX: A41.9 Sepsis, unspecified organism (principal); I50.33 Acute on chronic diastolic (congestive) heart failure; J18.9 Pneumonia, unspecified organism; R04.89 Hemorrhage from other sites in respiratory passages; I13.0 Hypertensive heart and chronic kidney disease with heart failure and stage 1 through stage 4 chronic kidney disease, or unspecified chronic kidney disease; Z68.41 Body mass index [BMI] 40.0-44.9, adult; J84.10 Pulmonary fibrosis, unspecified; N18.3 Chronic kidney disease, stage 3 (moderate); E87.6 Hypokalemia; J44.9 Chronic obstructive pulmonary disease, unspecified; G47.33 Obstructive sleep apnea (adult) (pediatric); I48.2 Chronic atrial fibrillation; E66.9 Obesity, unspecified; K44.9 Diaphragmatic hernia without obstruction or gangrene; D64.9 Anemia, unspecified; F43.10 Post-traumatic stress disorder, unspecified; F31.9 Bipolar disorder, unspecified; Z79.84 Long term (current) use of oral hypoglycemic drugs; Z79.01 Long term (current) use of anticoagulants; Z79.899 Other long term (current) drug therapy; Z88.8 Allergy status to other drugs, medicaments and biological substances; Z99.81 Dependence on supplemental oxygen; Z87.891 Personal history of nicotine dependence

== ENCOUNTER 2019-09-23 17:41 | Inpatient (IN) | payer OTHER, MEDICARE ==
[~2019-09-23] VITALS: Ht 175.3 cm; Wt 109.6 kg
[~2019-09-23 17:41] MED LIST changes: +ACET-897 PO; +BUDE180INH INH; +CLOTR1CR TOP; +OMEP-358 PO; -OMEP20TA PO; -OMEP40CA2 PO; +OMEP40CA97 PO; +POTA10CA32 PO; +PRED5PAK2 PO; -SIMV40TA2 PO; +SIMV40TA20 PO; +TIOT18INH INH
[2019-09-23 18:25] LABS: VENOUS HCO3 23.9 MEQ/L (23.0-27.0); VENOUS O2 SATURATION 72.7 % (60.0-80.0); VENOUS PARTIAL PRESSURE O2 35.5 mmHg (30.0-50.0); VENOUS PH 7.533 UNITS (7.330-7.430); VENOUS STANDARD HCO3 25.7 MEQ/L; VENOUS TOTAL CO2 24.7 MEQ/L (24.0-28.0)
[2019-09-23 18:29] LABS: BASO % 0.2 % (0.0-1.0); EOS % 0.1 % (0.0-3.0); HEMATOCRIT 36.4 % (42.0-52.0); HEMOGLOBIN 11.5 g/dl (13.5-17.5); LYMPH # 1.1 10^3/uL (1.5-5.0); LYMPH % 6.1 % (24.0-44.0); MEAN CORPUSCULAR HEMOGLOBIN 24.4 pg (27.0-33.0); MEAN CORPUSCULAR HGB CONC 31.6 g/dl (32.0-36.5); MEAN CORPUSCULAR VOLUME 77.1 fl (80.0-96.0); MONO % 5.4 % (0.0-5.0); NEUTROPHILS # 15.6 10^3/uL (1.5-8.5); NEUTROPHILS % 87.5 % (36.0-66.0); PLATELET COUNT, AUTOMATED 251 10^3/uL (150-450); RED BLOOD COUNT 4.72 10^6/uL (4.30-6.10); WHITE BLOOD COUNT 17.8 10^3/uL (4.0-10.0)
[2019-09-23 19:02] LABS: ALBUMIN 2.9 GM/DL (3.2-5.2); ALT/SGPT 13 U/L (12-78); BILIRUBIN,DIRECT 0.4 MG/DL (0.0-0.2); BILIRUBIN,TOTAL 1.2 MG/DL (0.2-1.0); BLOOD UREA NITROGEN 34 MG/DL (7-18); CARBON DIOXIDE LEVEL 21 MEQ/L (21-32); CHLORIDE LEVEL 102 MEQ/L (98-107); CK-MB VALUE MASS 1.1 NG/ML (<3.6); CPK CREATINE PHOSPHOKINASE 39 U/L (39-308); CREATININE FOR GFR 1.93 MG/DL (0.70-1.30); GLOMERULAR FILTRATION RATE 36.8 (>42); GLUCOSE, FASTING 144 MG/DL (70-100); MB/CK RELATIVE INDEX 2.82 (< OR =4); NT-PRO BNP 1250 PG/ML (<125); POTASSIUM SERUM 3.6 MEQ/L (3.5-5.1); SODIUM LEVEL 138 MEQ/L (136-145); THYROID STIMULATING HORMONE 0.955 uIU/ML (0.358-3.740); TOTAL PROTEIN 6.9 GM/DL (6.4-8.2); TROPONIN I < 0.02 NG/ML (< 0.10)
--- NOTE | 2019-09-23 19:07 | REP ---
Clinical: Chest pain. Technique: AP and lateral. Comparison: 06/24/2019. These: Mediastinum and cardiac silhouette are stable and within normal limits for portable technique. Lung archuleta demonstrate stable chronic interstitial changes. No obvious acute consolidation, effusion, or pneumothorax. Skeletal structures intact. Impression: Chronic stable changes. No obvious acute cardiopulmonary process. Electronically Signed by Abraham Randolph MD 09/23/2019 06:58 P
[2019-09-23] MEDS ORDERED: NS 500 ML IV ONE (19:30)
[2019-09-23] MEDS ORDERED: AZITHROMYCIN INJ 500 MG, VIAL MATE ADAPTER 1 EACH in D5W 250 ML IV ONE (19:30)
[2019-09-23] MEDS ORDERED: XARE20TA PO (19:44)
[2019-09-23] MEDS ORDERED: CLOT1CRE27 TOP (19:44)
[2019-09-23] MEDS ORDERED: VITA-122 PO (19:44)
--- NOTE | 2019-09-23 19:50 | ECGEPIP ---
[facility] - ED Test Date: 2019-09-23 Pat Name: CHETAN DONAHUE Department: Room: - Gender: Male Cupola Liner: mamadou : 1950 Requested By: Christopher Floyd Order Number: [id number] Reading MD: Flavio Moses Measurements Intervals [place] Rate: 117 P: [place]: 0 QRS: -48 QRSD: 84 T: 59 QT: 389 QTc: 544 Interpretive Statements ATRIAL FIBRILLATION WITH RAPID VENTRICULAR RESPONSE Left axis deviation LOW QRS VOLTAGE IN PRECORDIAL LEADS Nonspecific ST-T wave abnormalities with subtle changes from tracing done 06-19-19 Electronically Signed on 09-23-2019 19:49:52 EST by Flavio Moses
[2019-09-23] MEDS ORDERED: ACETAMINOPHEN 325 MG TAB PO ONE (20:00)
[2019-09-23] MEDS ORDERED: LEVALBUTEROL 1.25 MG/0.5 ML CONCENTRATE NEB INH PRN (21:00)
[2019-09-23] MEDS ORDERED: GLUCAGON FOR INJ 1 MG VIAL (J1610) SC PRN (21:00)
[2019-09-23] MEDS ORDERED: DEXTROSE 50% 50 ML SYRINGE IV PRN (21:00)
[2019-09-23] MEDS: TERAZOSIN 5 MG CAP PO SCH (21:00)
[2019-09-23] MEDS ORDERED: GLUCOSE 4 GM CHEW TABLET PO PRN (21:00)
[2019-09-23] MEDS ORDERED: MIRALAX *UNIT DOSE* 17GM PACKET PO PRN (21:00)
[2019-09-23] MEDS ORDERED: HumaLOG INSULIN (NovoLOG) PER UNIT SC SCH (21:00)
[2019-09-23] MEDS ORDERED: CLOTRIMAZOLE 1% TOPICAL CREAM 30GM TOP PRN (21:15)
[2019-09-23 21:52] VITALS: BP 118/63
[2019-09-23] MEDS: SIMVASTATIN 40 MG TAB PO SCH (22:50)
[2019-09-23] MEDS: DOCUSATE SODIUM 100 MG CAP PO SCH (22:50)
[2019-09-23] MEDS: RIVAROXABAN 20 MG TAB (XARELTO) PO SCH (22:50)
[2019-09-23] MEDS: POTASSIUM CHLORIDE 10 MEQ SR TABLET PO SCH (22:50)
[2019-09-23] MEDS: METOPROLOL TART 12.5 MG PER 1/2 TAB PO SCH (22:51)
[2019-09-23] MEDS: FERROUS GLUCONATE 324 MG TAB PO SCH (22:51)
--- NOTE | 2019-09-23 22:57 | HPEPDOC ---
[facility] Medical History & Physical Date of Admission Sep 23, 2019 Date of Service: Sep 23, 2019 Attending Physician: CAROL AUGUSTIN MD History and Physical CHIEF COMPLAINT: Shortness of Breath HISTORY OF PRESENT ILLNESS: Patient is a 69 year old male who presented to the [facility] ER with complaint of shortness of breath that has been worsening over the past few days. Patient states that a few days ago he developed shortness of breath. He stated that at the time he did have a cough and admitted to some brown/green sputum production. Over the next two days the patients cough had resolved however he remained short of breath. He stated that his shortness of breath was worse when he walked or exerted himself. He denied any shortness of breath while lying flat. He denies any chest pain although states that when he presented to the ER today he had some chest tightness. He stated that the chest tightness has resolved. The patient states that he has been around sick contacts. His and his grandchildren were sick with a upper respiratory illness last week. Additionally, the patient states that he has some abdominal discomfort. The patient states that he has been compliant with his home med ications including his diuretics. The patient does have a history of Idiopathic pulmonary hemosiderosis for which he follows with a [facility] in [facility]. The patient states that he is establishing with [facility] in [place] however has not had his appointment yet. In the Emergency department the patient was found to be vitally stable. He received a 500 ml NS bolus and a dose of Azithromycin. A chest x-ray was performed which did not demonstrate any acute cardiopulmonary processes. An ABG demonstrated a respiratory alkalosis. The patient did have desaturations of less than 88% at rest. He was placed on NC with 98% O2 saturation on 6L NC. Hospitalist service was consulted and the patient was admitted for further evaluation and management PAST MEDICAL HISTORY: 1. Idiopathic Pulmonary Hemosiderosis 2. Chronic Kidney Disease Stage 3 3. Hypertension 4. Atrial Fibrillation on Xarelto 5. LAKESHIA with CPAP 6. Hiatal Hernia and GERD 7. Anemia of Chronic Disease 8. PTSD 9. Manic Depression 10. History of exposure to Agent [place] PAST SURGICAL HISTORY: 1. History of Chest Tube placement 2. Right Lung Biopsy 3. Right Middle Finger Amputation 4. Bronchoscopy 5. Lens Implant SOCIAL HISTORY: Patient is and lives at home with his . He is a [place] of the [place] and admits to exposure to Agent [place]. He denies any current alcohol use however states that he used to drink occasionally. He is a former smoker having quit 35 year ago. He denies any history of IV or illicit drug use. FAMILY HISTORY: Patient mother was diabetic and had from pancreatic cancer. His father had "heart trouble". The patient has one sister with ovarian cancer. Additionally, he has 3 children all of who are alive and well. ALLERGIES: Please see below. REVIEW OF SYSTEMS: CONSTITUTIONAL: Admits to chills. Denies fevers. Denies nightsweats. Admits to h istory of hemoptysis. Denies unintentional weight loss or weight gain HEENT: Denies dysphagia or pain on swallowing. Denies choking. CARDIOVASCULAR: Denies chest pain or palpitations. Admits to chest tightness RESPIRATORY: Admits to shortness of breath that has progressively worsened. Admits to some sputum production which is resolving. Admits to cough previously GASTROINTESTINAL: Admits to "gassy/bloated" feeling. Denies abdominal pain. Denies nausea. Admits to an episode of vomiting. Admits to constipation. Denies diarrhea GENITOURINARY: Denies dysuria or increased frequency. Admits to BPH SKIN: Denies any rashes or lesions MUSCULOSKELETAL: Denies any muscle weakness NEUROLOGICAL: Denies any changes in gait. Denies any changes in speech PSYCHIATRIC: Admits to history of PTSD and depression ENDOCRINE: Denies any heat intolerance or cold intolerance. Admits to history of diabetes HEMATOLOGIC/LYMPHATIC: Admits to history of pulmonary hemorrhage. Denies any history of DVT or pulmonary embolism HOME MEDICATIONS: Please see below. PHYSICAL EXAMINATION: VITAL SIGNS: Temperature 99.4, pulse 98, respiratory rate 18, blood pressure 104/62, pulse oximetry 97% 6L NC GENERAL APPEARANCE: Patient is awake, alert, and oriented. He is sitting up in bed comfortably. He does not appear to be in any acute distress. He is conversive and pleasant HEENT: Atraumatic, normocephalic. Eyes are nonicteric. Trachea is midline. No palpable cervical, axillary, or supraclavicular lymphadenopathy CARDIOVASCULAR: Irregularly irregular rhythm. Tachycardic rate. No clicks, rubs, or murmurs. No JVD LUNGS: Clear vesicular breath sounds bilaterally with good respiratory effort. No wheezes, rhonchi, or rales. Symmetric chest expansion ABDOMEN: Soft, nondistended. Nontender throughout. No rebound tenderness or guarding. Normoactive bowel sounds throughout. No palpable masses or hernias EXTREMITIES: No edema. 2+ posterior tibial and radial pulses bilaterally NEUROLOGICAL: No focal neurological deficits PSYCHIATRIC: Mood and affect appear appropriate LABORATORY DATA: See below. IMAGING: Clinical: Chest pain. Technique: AP and lateral. Comparison: 06/24/2019. These: Mediastinum and cardiac silhouette are stable and within normal limits for portable technique. Lung archuleta demonstrate stable chronic interstitial changes. No obvious acute consolidation, effusion, or pneumothorax. Skeletal structures intact. Impression: Chronic stable changes. No obvious acute cardiopulmonary process. Electronically Signed by Abraham Randolph MD 09/23/2019 06:58 P MICROBIOLOGY: Please see below. ASSESSMENT: Patient is a 69 year old male presented with a complaint of pr ogressive shortness of breath over the past three days. PLAN: 1. Shortness of breath 2/2 Upper respiratory infection vs interstitial lung disease -Patient presented with complaint of shortness of breath over the past few days. He admitted to a cough with some sputum production which has resolved. He has had multiple sick contacts including his and grandchildren. He is afebrile but with an elevated WBC. His chest x-ray appears negative for an acute pneumonia. Additionally, the patient has a history of idiopathic pulmonary hemosiderosis. He denies any active hemoptysis. -Will obtain Procalcitonin. Will start patient on Azithromycin. Hold off on further antibiotics until procalcitonin returns. He does have a leukocytosis however this could be reactive to a viral infection -Chest X-ray appears stable in comparison to previous. Patient is low risk for DVT/PE as he is chronically on Xarelto, denies recent travel/immobilization, has no active malignancy, and no prior history of DVT or PE. Does not appear to be volume overloaded on exam. He has an elevated BNP but chest auscultation is unremarkable without any pulmonary congestion on chest x-ray. -Will start Prednisone 40mg daily -Xopenx neb RPN -O2 goal of 88-92% 2. Abdominal discomfort likley 2/2 GERD and constipation -Patient admits to abdominal discomfort mostly described as gas. He states he is constipated. He was admitted to the hospital in May for SOB and had similar abdominal discomfort/gas. He does have a mild elevation in total bilirubin. Abdominal exam is otherwise benign. -Will add a bowel regimen -Patient has a history of hiatal hernia and GERD. Will continue home Prilosec. 3. History of CHF -Patient has a history of CHF. No recent Echocardiogram is available in the medical record -He does have an elevated BNP however, his chest x-ray is not suggestive of pulmonary vascular congestion. Additionally, he does not appear volume overloaded and is clear on auscultation. -Will continue patients home diuretics -2 Gram sodium diet 4. History of Atrial Fibrillation -Patient has atrial fibrillation. He is chronically anticoagulated with Xarelto. Will continue 5. BPH -Continue home finasteride and Terazosin 6. Hyperlipidemia -Continue simvastatin 7. DVT prophylaxis -Patient is chronically anticoagulated on Xarelto Vital Signs Vital Signs Date Time Temp Pulse Resp B/P (MAP) Pulse Ox O2 Delivery O2 Flow Rate FiO2 09/23/19 21:31 103 97 09/23/19 21:30 18 104/62 (76) Nasal Cannula 6.0 09/23/19 17:42 99.4 Laboratory Data Labs 24H Laboratory Tests 2 09/23/19 18:15: Immature Granulocyte % (Auto) 0.7, Neutrophils (%) (Auto) 87.5H, Lymphocytes (%) (Auto) 6.1L, Monocytes (%) (Auto) 5.4H, Eosinophils (%) (Auto) 0.1, Basophils (%) (Auto) 0.2, Neutrophils # (Auto) 15.6H, Lymphocytes # (Auto) 1.1L, Monocytes # (Auto) 1.0H, Eosinophils # (Auto) 0.0, Basophils # (Auto) 0.0, Nucleated Red Blood Cells % (auto) 0.0, Blood Gas Bicarbonate Standard 25.7, Venous Blood pH 7.533H, Venous Blood Partial Pressure CO2 29.0L, Venous Blood Partial Pressure O2 35.5, Venous Blood Total Carbon Dioxide 24.7, Venous Blood HCO3 23.9, Venous Blood Oxygen Saturation 72.7, Venous Blood Base Excess 2.0, Anion Gap 15, Glomerular Filtration Rate 36.8L, Lactic Acid Level 1.9, Calcium Level 9.0, Total Bilirubin 1.2H, Direct Bilirubin 0.4H, Aspartate Amino Transf (AST/SGOT) 22, Alanine Aminotransferase (ALT/SGPT) 13, Alkaline Phosphatase 69, Total Crea delvis Kinase 39, Creatine Kinase MB 1.1, Creatine Kinase MB Relative Index 2.82, Troponin I < 0.02, GB-Wmb-L-Type Natriuretic Peptide 1250H, Total Protein 6.9, Albumin 2.9L, Albumin/Globulin Ratio 0.73L, Thyroid Stimulating Hormone (TSH) 0.955 CBC/BMP Laboratory Tests 09/23/19 18:15 Microbiology Microbiology 09/23/19 Blood Culture, Received Pending 09/23/19 Blood Culture, Received Pending Home Medications Scheduled Ascorbic Acid (Vitamin C) 250 Mg Tablet, 250 MG PO DAILY Bupropion Hcl (Bupropion HCl Sr) 150 Mg Tab, 150 MG PO DAILY Cholecalciferol (Vitamin D3) (Vitamin D3) 25 Mcg Tablet, 25 MCG PO DAILY Docusate Sodium (Docusate Sodium) 100 Mg Cap, 200 MG PO BID Ferrous Gluconate (Ferrous Gluconate) 324 Mg Tab, 648 MG PO BID Finasteride (Finasteride) 5 Mg Tab, 5 MG PO DAILY Glipizide (Glipizide) 5 Mg Tab, 2.5 MG PO DAILY TAKES BEFORE BREAKFAST Metolazone (Metolazone) 2.5 Mg Tablet, 2.5 MG PO DAILY Metoprolol Tartrate (Metoprolol Tartrate) 25 Mg Tab, 12.5 MG PO BID Omeprazole (Omeprazole) 20 Mg Tab, 40 MG PO DAILY Potassium Chloride (Potassium Chloride) 10 Meq Capsule.er, 40 MEQ PO BID Rivaroxaban (Xarelto) 20 Mg Tablet, 20 MG PO QHS Sertraline HCl (Sertraline HCl) 100 Mg Tab, 200 MG PO DAILY Simvastatin (Zocor) 80 Mg Tablet, 40 MG PO QHS Spironolactone (Spironolactone) 50 Mg Tablet, 100 MG PO DAILY Terazosin Hcl (Terazosin HCl) 10 Mg Cap, 10 MG PO QHS Scheduled PRN Clotrimazole (Clotrimazole) 1% 30GM Cream..g., 1 DOSE TOP BID PRN for RASH APPLIES TO GROIN AND LEGS NEEDED FOR YEAST INFECTION Allergies Coded Allergies: albuterol (Verified Allergy, Unknown, 04/27/19) amlodipine (Verified Allergy, Unknown, 04/27/19) atenolol (Verified Allergy, Unknown, 04/27/19) A-FIB/CHADSVASC A-FIB History Current/History of A-Fib/PAF?: Yes Current PO Anticoag Therapy: Yes RONNA DUNCAN DO Sep 23, 2019 22:32 CAROL AUGUSTIN MD Sep 23, 2019 23:23
[2019-09-24 06:00] VITALS: BP 102/58
[2019-09-24 06:48] LABS: HEMATOCRIT 35.8 % (42.0-52.0); MEAN CORPUSCULAR HEMOGLOBIN 24.5 pg (27.0-33.0); MEAN CORPUSCULAR HGB CONC 30.7 g/dl (32.0-36.5); MEAN CORPUSCULAR VOLUME 79.7 fl (80.0-96.0); PLATELET COUNT, AUTOMATED 229 10^3/uL (150-450); RED BLOOD COUNT 4.49 10^6/uL (4.30-6.10); WHITE BLOOD COUNT 9.6 10^3/uL (4.0-10.0)
[2019-09-24 07:09] LABS: CALCIUM LEVEL 9.2 MG/DL (8.8-10.2); CREATININE FOR GFR 1.72 MG/DL (0.70-1.30); GLOMERULAR FILTRATION RATE 42.1 (>42); POTASSIUM SERUM 3.1 MEQ/L (3.5-5.1)
[2019-09-24] MEDS: HumaLOG INSULIN (NovoLOG) PER UNIT SC SCH ×2 (07:30→12:00)
[2019-09-24] MEDS ORDERED: AZITHROMYCIN 250 MG TAB PO SCH ×2 (09:00→15:23)
[2019-09-24] MEDS: METOPROLOL TART 12.5 MG PER 1/2 TAB PO SCH ×2 (09:00→20:24)
[2019-09-24] MEDS: metOLazone 2.5 MG TAB PO SCH (09:00)
[2019-09-24] MEDS: SPIRONOLACTONE 50 MG TAB PO SCH (09:00)
[2019-09-24] MEDS: FERROUS GLUCONATE 324 MG TAB PO SCH ×2 (09:10→20:19)
[2019-09-24] MEDS: buPROPion **SR TABLET** (ZYBAN) 150MG PO SCH (09:10)
[2019-09-24] MEDS: FINASTERIDE 5 MG TAB PO SCH (09:11)
[2019-09-24] MEDS: predniSONE 20 MG TAB PO SCH (09:11)
[2019-09-24] MEDS: DOCUSATE SODIUM 100 MG CAP PO SCH ×2 (09:11→20:19)
[2019-09-24] MEDS: SERTRALINE 100 MG TAB PO SCH (09:11)
[2019-09-24] MEDS: OMEPRAZOLE 20 MG CAP PO SCH (09:11)
[2019-09-24] MEDS: ASCORBIC ACID 250 MG TAB PO SCH (09:12)
[2019-09-24] MEDS: SENNA 8.6 MG TAB (SENOKOT) PO SCH (09:12)
[2019-09-24] MEDS: POTASSIUM CHLORIDE 10 MEQ SR TABLET PO SCH ×2 (09:12→20:21)
--- NOTE | 2019-09-24 11:16 | IPNPDOC ---
Subjective Date Seen The patient was seen on 09/24/19. Subjective Chief Complaint/HPI Patient is still complaining of shortness of breath and also right foot painsince this am General: Denies: ROS Unobtainable, Chills, Night Sweats, Fatigue, Malaise, Normal Appetite, Other Symptoms Constitutional: Denies: Chills, Fever, Malaise, Night Sweats, Weakness, Fatigue, Weight Loss, Lethargy, Other Skin: Denies: Rash, Lesions, Jaundice, Bruising, Itching, Dry, Breakdown, Nail Changes, Other Pulmonary: Reports: Dyspnea; Denies: Cough, Pleuritic Chest Pain, Other Symptoms Cardiovascular: Denies: Chest Pain, Palpitations, Orthopnea, Paroxysmal Noc. Dyspnea, Edema, Lt Headedness, Other Symptoms Gastrointestinal: Denies: Nausea, Vomiting, Abdominal Pain, Diarrhea, Constipation, Melena, Hematochezia, Other Symptoms Musculoskeletal: Reports: Other Symptoms (, right foot pain) Neurological: Denies: Weakness, Numbness, Incoordination, Change in speech, Con fusion, Seizures, Other Symptoms Objective Physical Examination General Exam: Positive: Alert, Cooperative Eye Exam: Positive: PERRLA, Conjunctiva & lids normal ENT Exam: Positive: Atraumatic, Mucous membr. moist/pink Neck Exam: Positive: Supple Chest Exam: Positive: Clear to auscultation Heart Exam: Positive: Rate Normal, Normal S1, Normal S2 Abdomen Exam: Positive: Normal bowel sounds, Soft Extremity Exam: Positive: Normal pulses Skin Exam: Positive: Nl turgor and temperature Neuro Exam: Positive: Strength at 5/5 X4 ext Assessment /Plan Problems (1) Afib Status: Chronic Problem Text: Chronic A. fib rate is under well control Continue home medications (2) HTN (hypertension) Status: Chronic Problem Text: Blood pressure is under well control Continue home meds (3) CHF (congestive heart failure) Status: Chronic Problem Text: History of none specific. Congestive heart failure No previous echo available in the records. Will order echocardiogram for the cardiac function studies and to establish ejection fraction Continue home diuretics (4) Interstitial lung disease Status: Chronic Problem Text: History of chronic interstitial lung disease. He is follows up with pulmonary clinic at [facility] in [place] Recently he was was referred for pulmonary rehabilitation from his [facility] (5) Hypokalemia Status: Acute Problem Text: Potassium supplemented. Given Repeat levels in a.m. (6) Pneumonia Status: Acute Problem Text: Questionable diagnosis of pneumonia. Patient did had elevated WBC count, but no evidence of pneumonia on chest x-ray. Responded to IV Zithromax. His WBC count is 9.6 now. Will continue Zithromax for one more day and then changed to by mouth CBC, CMP in a.m. (7) Foot pain, right Status: Acute Problem Text: Foot exam and no evidence of localized trauma increased local temperature, or deformity , Most likely osteoarthritis in nature Percocet one tablet by mouth every 6 hours when necessary Plan/VTE VTE Prophylaxis Ordered?: Yes VS, I&O, 24H, Fishbone Vital Signs/I&O Vital Signs Date Time Temp Pulse Resp B/P (MAP) Pulse Ox O2 Delivery O2 Flow Rate FiO2 09/24/19 09:00 97 86/63 09/24/19 06:00 97.3 18 18 NIPPV (BIPAP/CPAP) 09/24/19 04:56 2.0 I&O- Last 24 Hours up to 6 AM 09/24/19 06:00 Intake Total 1235 ml Output Total 350 ml Balance 885 ml Laboratory Data 24H LABS Laboratory Tests 2 09/23/19 18:15: Immature Granulocyte % (Auto) 0.7, Neutrophils (%) (Auto) 87.5H, Lymphocytes (%) (Auto) 6.1L, Monocytes (%) (Auto) 5.4H, Eosinophils (%) (Auto) 0.1, Basophils (%) (Auto) 0.2, Neutrophils # (Auto) 15.6H, Lymphocytes # (Auto) 1.1L, Monocytes # (Auto) 1.0H, Eosinophils # (Auto) 0.0, Basophils # (Auto) 0.0, Nucleated Red Blood Cells % (auto) 0.0, Blood Gas Bicarbonate Standard 25.7, Venous Blood pH 7.533H, Venous Blood Partial Pressure CO2 29.0L, Venous Blood Partial Pressure O2 35.5, Venous Blood Total Carbon Dioxide 24.7, Venous Blood HCO3 23.9, Venous Blood Oxygen Saturation 72.7, Venous Blood Base Excess 2.0, Anion Gap 15, Glomerular Filtration Rate 36.8L, Lactic Acid Level 1.9, Calcium Level 9.0, Total Bilirubin 1.2H, Direct Bilirubin 0.4H, Aspartate Amino Transf (AST/SGOT) 2 2, Alanine Aminotransferase (ALT/SGPT) 13, Alkaline Phosphatase 69, Total Creatine Kinase 39, Creatine Kinase MB 1.1, Creatine Kinase MB Relative Index 2.82, Troponin I < 0.02, PZ-Pzy-Q-Type Natriuretic Peptide 1250H, Total Protein 6.9, Albumin 2.9L, Albumin/Globulin Ratio 0.73L, Thyroid Stimulating Hormone (TSH) 0.955 09/23/19 22:13: Bedside Glucose (Misc Panel) 143H 09/24/19 06:31: Nucleated Red Blood Cells % (auto) 0.0, Anion Gap 9, Glomerular Filtration Rate 42.1, Calcium Level 9.2 CBC/BMP Laboratory Tests 09/23/19 18:15 09/24/19 06:31 Microbiology Microbiology 09/23/19 Respiratory Virus Panel (PCR) (JULIEN) - Final, Complete 09/23/19 Blood Culture, Received Pending 09/23/19 Blood Culture, Received Pending LNEIN ROBERTO MD Sep 24, 2019 11:16
[2019-09-24] MEDS: PERCOCET 5MG/325MG TAB PO PRN ×2 (11:20→20:28)
[2019-09-24] MEDS ORDERED: POTASSIUM CHLORIDE 10 MEQ SR TABLET PO ONE (12:00)
[2019-09-24 14:00] VITALS: BP 117/69
[2019-09-24] MEDS: RIVAROXABAN 20 MG TAB (XARELTO) PO SCH (18:11)
[2019-09-24] MEDS: SIMVASTATIN 40 MG TAB PO SCH (20:20)
[2019-09-24] MEDS: TERAZOSIN 5 MG CAP PO SCH (20:23)
[2019-09-24 20:24] VITALS: BP 122/95
[2019-09-24] MEDS ORDERED: AZITHROMYCIN INJ 500 MG, VIAL MATE ADAPTER 1 EACH in D5W 250 ML IV SCH (21:00)
[2019-09-24 22:00] VITALS: BP 111/64
[2019-09-25 06:00] VITALS: BP 112/71
[2019-09-25 06:59] LABS: BASO % 0.3 % (0.0-1.0); EOS # 0.1 10^3/uL (0.0-0.5); EOS % 1.2 % (0.0-3.0); HEMATOCRIT 34.7 % (42.0-52.0); HEMOGLOBIN 10.5 g/dl (13.5-17.5); LYMPH # 1.6 10^3/uL (1.5-5.0); LYMPH % 15.2 % (24.0-44.0); MEAN CORPUSCULAR HEMOGLOBIN 24.3 pg (27.0-33.0); MEAN CORPUSCULAR HGB CONC 30.3 g/dl (32.0-36.5); MEAN CORPUSCULAR VOLUME 80.3 fl (80.0-96.0); MONO # 0.8 10^3/uL (0.0-0.8); MONO % 7.6 % (0.0-5.0); NEUTROPHILS # 7.8 10^3/uL (1.5-8.5); NEUTROPHILS % 74.7 % (36.0-66.0); PLATELET COUNT, AUTOMATED 235 10^3/uL (150-450); RED BLOOD COUNT 4.32 10^6/uL (4.30-6.10); WHITE BLOOD COUNT 10.4 10^3/uL (4.0-10.0)
[2019-09-25 07:50] LABS: ALBUMIN 2.5 GM/DL (3.2-5.2); BILIRUBIN,TOTAL 0.4 MG/DL (0.2-1.0); CALCIUM LEVEL 9.1 MG/DL (8.8-10.2); CREATININE FOR GFR 1.73 MG/DL (0.70-1.30); GLOMERULAR FILTRATION RATE 41.8 (>42); POTASSIUM SERUM 3.6 MEQ/L (3.5-5.1); TOTAL PROTEIN 6.9 GM/DL (6.4-8.2)
[2019-09-25] MEDS: DOCUSATE SODIUM 100 MG CAP PO SCH (09:00)
[2019-09-25] MEDS: FINASTERIDE 5 MG TAB PO SCH (09:02)
[2019-09-25] MEDS: POTASSIUM CHLORIDE 10 MEQ SR TABLET PO SCH (09:03)
[2019-09-25] MEDS: FERROUS GLUCONATE 324 MG TAB PO SCH (09:03)
[2019-09-25] MEDS: SERTRALINE 100 MG TAB PO SCH (09:03)
[2019-09-25] MEDS: predniSONE 20 MG TAB PO SCH (09:03)
[2019-09-25] MEDS: metOLazone 2.5 MG TAB PO SCH (09:03)
[2019-09-25] MEDS: SENNA 8.6 MG TAB (SENOKOT) PO SCH (09:04)
[2019-09-25] MEDS: OMEPRAZOLE 20 MG CAP PO SCH (09:04)
[2019-09-25] MEDS: METOPROLOL TART 12.5 MG PER 1/2 TAB PO SCH (09:04)
[2019-09-25] MEDS: ASCORBIC ACID 250 MG TAB PO SCH (09:04)
[2019-09-25] MEDS: buPROPion **SR TABLET** (ZYBAN) 150MG PO SCH (09:05)
[2019-09-25] MEDS: SPIRONOLACTONE 50 MG TAB PO SCH (09:05)
[2019-09-25] MEDS ORDERED: AZIT-12 PO (10:49)
[2019-09-25] MEDS ORDERED: PRED20TA PO ×2 (10:49→16:38)
[2019-09-25 14:00] VITALS: BP 125/78
--- NOTE | 2019-09-25 14:18 | DS.PDOC ---
Discharge Summary General Date of Admission Sep 23, 2019 at 20:52 Date of Discharge 09/25/19 Discharge Summary PROCEDURES PERFORMED DURING STAY: None. ADMITTING DIAGNOSES: 1. , A. fib, CHF, hypertension, interstitial lung disease, questionable pneumonia DISCHARGE DIAGNOSES: 1. , A. fib, CHF, hypertension, interstitial lung disease, pneumonia ruled out COMPLICATIONS/CHIEF COMPLAINT: Afib,Chf,Htn,Hypoixa,Shortness Of Breath. HISTORY OF PRESENT ILLNESS: HISTORY OF PRESENT ILLNESS: Patient is a 69 year old male who presented to the [facility] ER with complaint of shortness of breath that has been worsening over the past few days. Patient states that a few days ago he developed shortness of breath. He stated that at the time he did have a cough and admitted to some brown/green sputum production. Over the next two days the patients cough had resolved however he remained short of breath. He stated that his shortness of breath was worse when he walked or exerted himself. He denied any shortness of breath while lying flat. He denies any chest pain although states that when he presented to the ER today he had some chest tightness. He stated that the chest tightness has resolved. The patient states that he has been around sick contacts. His and his grandchildren were sick with a upper respiratory illness last week. Additionally, the patient states that he has some abdominal discomfort. The patient states that he has been compliant with his home medications including his diuretics. The patient does have a history of Idiopathic pulmonary hemosiderosis for which he follows with a Rn Postpartum in [facility]. The patient states that he is establishing with [facility] in [place] however has not had his appointment yet. In the Emergency department the patient was found to be vitally stable. He received a 500 ml NS bolus and a dose of Azithromycin. A chest x-ray was perform ed which did not demonstrate any acute cardiopulmonary processes. An ABG demonstrated a respiratory alkalosis. The patient did have desaturations of less than 88% at rest. He was placed on NC with 98% O2 saturation on 6L NC. Hospitalist service was consulted and the patient was admitted for further evaluation and management . HOSPITAL COURSE: Patient was admitted with possible pneumonia and is started on Zithromax, but chest x-ray and the blood work did not support a diagnosis of pneumonia, most likely his jugular breath is secondary to interstitial lung disease for which he was started on prednisone. Patient responded very well to prednisone therapy. He is asymptomatic. His repeat blood work and chest x-ray are essentially within normal range. His pulse ox is maintaining more than 90 on room air. He will be discharged home on by mouth Zithromax to finish the course and also prednisone 20 mg by mouth daily for interstitial lung disease and he is planning to follow-up with his pulmonary doctor at the [facility] in [place] . DISCHARGE MEDICATIONS: Please see below. ALLERGIES: Please see below. PHYSICAL EXAMINATION ON DISCHARGE: VITAL SIGNS: Please see below. GENERAL: Within normal limits HEENT: PERRLA. Extraocular muscles intact NECK: Supple. Negative JVD, negative lymphadenopathy CARDIOVASCULAR EXAMINATION: S1, S2, regular RESPIRATORY EXAMINATION: Clear to A&P ABDOMINAL EXAMINATION: Benign EXTREMITIES: No clubbing, cyanosis, edema SKIN: Within normal limit NEUROLOGICAL EXAMINATION: . No focal motor sensory deficit PSYCHIATRIC EXAMINATION: Within normal limits LABORATORY DATA: Please see below. IMAGING: Chest x-ray:Impression: Chronic stable changes. No obvious acute cardiopulmonary process. PROGNOSIS: good ACTIVITY: As tolerated. DIET: As tolerated DISCHARGE PLAN: Follow with PCP in one week DISPOSITION: . Home DISCHARGE INSTRUCTIONS: 1. As per discharge instructions. ITEMS TO FOLLOWUP ON ON OUTPATIENT: 1. Follow with PCP in one week. DISCHARGE CONDITION: Stable. TIME SPENT ON DISCHARGE: Greater than 35 minutes. Vital Signs/I&Os Vital Signs Date Time Temp Pulse Resp B/P (MAP) Pulse Ox O2 Delivery O2 Flow Rate FiO2 09/25/19 06:00 96.8 76 21 112/71 (85) 97 Nasal Cannula 1.0 I&O- Last 24 Hours up to 6 AM 09/25/19 06:00 Intake Total 1870 ml Output Total 400 ml Balance 1470 ml Laboratory Data Labs 24H Laboratory Tests 2 09/25/19 06:19: Immature Granulocyte % (Auto) 1.0, Neutrophils (%) (Auto) 74.7H, Lymphocytes (%) (Auto) 15.2L, Monocytes (%) (Auto) 7.6H, Eosinophils (%) (Auto) 1.2, Basophils (%) (Auto) 0.3, Neutrophils # (Auto) 7.8, Lymphocytes # (Auto) 1.6, Monocytes # (Auto) 0.8, Eosinophils # (Auto) 0.1, Basophils # (Auto) 0.0, Nucleated Red Blood Cells % (auto) 0.0, Anion Gap 9, Glomerular Filtration Rate 41.8L, Calcium Level 9.1, Total Bilirubin 0.4#, Aspartate Amino Transf (AST/SGOT) 25, Alanine Aminotransferase (ALT/SGPT) 18, Alkaline Phosphatase 55, Total Protein 6.9, Albumin 2.5L, Albumin/Globulin Ratio 0.57L CBC/BMP Laboratory Tests 09/25/19 06:19 Microbiology Microbiology 09/23/19 Respiratory Virus Panel (PCR) (JULIEN) - Final, Complete 09/23/19 Blood Culture - Preliminary, Resulted No growth after 24 hours . All specim... 09/23/19 Blood Culture - Preliminary, Resulted No growth after 24 hours . All specim... Discharge Medications Scheduled Ascorbic Acid (Vitamin C) 250 Mg Tablet, 250 MG PO DAILY, (Reported) Azithromycin (Azithromycin) 250 Mg Tablet, 500 MG PO DAILY@2000 Bupropion Hcl (Bupropion HCl Sr) 150 Mg Tab, 150 MG PO DAILY, (Reported) Cholecalciferol (Vitamin D3) (Vitamin D3) 25 Mcg Tablet, 25 MCG PO DAILY, (Reported) Docusate Sodium (Docusate Sodium) 100 Mg Cap, 200 MG PO BID, (Reported) Ferrous Gluconate (Ferrous Gluconate) 324 Mg Tab, 648 MG PO BID, (Reported) Finasteride (Finasteride) 5 Mg Tab, 5 MG PO DAILY, (Reported) Glipizide (Glipizide) 5 Mg Tab, 2.5 MG PO DAILY, (Reported) TAKES BEFORE BREAKFAST Metolazone (Metolazone) 2.5 Mg Tablet, 2.5 MG PO DAILY, (Reported) Metoprolol Tartrate (Metoprolol Tartrate) 25 Mg Tab, 12.5 MG PO BID, (Reported) Omeprazole (Omeprazole) 20 Mg Tab, 40 MG PO DAILY, (Reported) Potassium Chloride (Potassium Chloride) 10 Meq Capsule.er, 40 MEQ PO BID, (Reported) Prednisone (Prednisone) 20 Mg Tablet, 20 MG PO DAILY Rivaroxaban (Xarelto) 20 Mg Tablet, 20 MG PO QHS, (Reported) Sertraline HCl (Sertraline HCl) 100 Mg Tab, 200 MG PO DAILY, (Reported) Simvastatin (Zocor) 80 Mg Tablet, 40 MG PO QHS, (Reported) Spironolactone (Spironolactone) 50 Mg Tablet, 100 MG PO DAILY, (Reported) Terazosin Hcl (Terazosin HCl) 10 Mg Cap, 10 MG PO QHS, (Reported) Scheduled PRN Clotrimazole (Clotrimazole) 1% 30GM Cream..g., 1 DOSE TOP BID PRN for RASH, (Reported) APPLIES TO GROIN AND LEGS NEEDED FOR YEAST INFECTION Allergies Coded Allergies: albuterol (Verified Allergy, Unknown, 04/27/19) amlodipine (Verified Allergy, Unknown, 04/27/19) atenolol (Verified Allergy, Unknown, 04/27/19) LENIN ROBERTO MD Sep 25, 2019 14:18
[2019-09-25] MEDS ORDERED: OXYC1TAB23 PO (16:36)
[2019-09-25] MEDS ORDERED: ZITH500T PO (16:38)
== END 2019-09-25 15:02 | disposition home or self-care (01) | DRG 197 ==
LOC: M ED 17:41 → M ED INP 20:52 → M MSPAV 21:52
PROVIDERS: ADMIT Internal Medicine; ATTEND Internal Medicine
DX: J84.9 Interstitial pulmonary disease, unspecified (principal); I48.20 Chronic atrial fibrillation, unspecified; I13.0 Hypertensive heart and chronic kidney disease with heart failure and stage 1 through stage 4 chronic kidney disease, or unspecified chronic kidney disease; J06.9 Acute upper respiratory infection, unspecified; I50.9 Heart failure, unspecified; K59.00 Constipation, unspecified; Z79.899 Other long term (current) drug therapy; Z88.8 Allergy status to other drugs, medicaments and biological substances; N18.3 Chronic kidney disease, stage 3 (moderate); Z79.01 Long term (current) use of anticoagulants; K44.9 Diaphragmatic hernia without obstruction or gangrene; K21.9 Gastro-esophageal reflux disease without esophagitis; D63.1 Anemia in chronic kidney disease; G47.33 Obstructive sleep apnea (adult) (pediatric); F32.9 Major depressive disorder, single episode, unspecified; Z77.29 Contact with and (suspected) exposure to other hazardous substances; N40.0 Benign prostatic hyperplasia without lower urinary tract symptoms; E78.5 Hyperlipidemia, unspecified; E87.6 Hypokalemia

== ENCOUNTER 2020-04-01 07:03 | Inpatient (IN) | payer OTHER, MEDICARE ==
[~2020-04-01] VITALS: Ht 175.3 cm; Wt 105.2 kg
[2020-04-01] VITALS (7 sets, daily range): BP systolic 104–110; BP diastolic 23–65; O2SAT 84–100
[~2020-04-01 07:03] MED LIST changes: +AZIT-12 PO; +CLOT1CRE27 TOP; +OXYC1TAB23 PO; +PRED20TA PO; +XARE20TA PO; +ZITH500T PO
[2020-04-01] MEDS ORDERED: methylPREDNISolone INJ 125 MG/2 ML VIAL (J2930) IV ONE (07:45)
--- NOTE | 2020-04-01 08:05 | REP ---
Clinical: Cough and dyspnea. Comparison: 09/23/2019, 04/29/2019. Findings: Stable cardiomegaly and diffuse chronic fibrosis/emphysematous changes are again noted. No obvious acute focal consolidation, effusion or pneumothorax. Skeletal structures intact. Impression: Marked chronic changes similar to prior examinations. Electronically Signed by Abraham Randolph MD 04/01/2020 07:56 A
[2020-04-01 08:07] LABS: BASO % 0.2 % (0.0-1.0); EOS % 0.3 % (0.0-3.0); HEMATOCRIT 34.2 % (42.0-52.0); LYMPH # 0.6 10^3/uL (1.5-5.0); LYMPH % 4.3 % (24.0-44.0); MEAN CORPUSCULAR HEMOGLOBIN 25.2 pg (27.0-33.0); MEAN CORPUSCULAR HGB CONC 32.2 g/dl (32.0-36.5); MEAN CORPUSCULAR VOLUME 78.3 fl (80.0-96.0); MONO # 0.5 10^3/uL (0.0-0.8); MONO % 3.7 % (0.0-5.0); NEUTROPHILS # 12.1 10^3/uL (1.5-8.5); NEUTROPHILS % 90.7 % (36.0-66.0); PLATELET COUNT, AUTOMATED 185 10^3/uL (150-450); RED BLOOD COUNT 4.37 10^6/uL (4.30-6.10); WHITE BLOOD COUNT 13.3 10^3/uL (4.0-10.0)
[2020-04-01 08:18] LABS: INR 1.32; PROTHROMBIN TIME 16.1 SECONDS (11.8-14.0)
[2020-04-01] MEDS ORDERED: cefTRIAXone SOD 2 GM in D5W MINI-BAG PLUS 50 ML IV ONE (08:30)
[2020-04-01] MEDS ORDERED: NS IV ONE (08:30)
[2020-04-01 08:39] LABS: ALBUMIN 2.5 GM/DL (3.2-5.2); BILIRUBIN,DIRECT 0.4 MG/DL (0.0-0.2); BILIRUBIN,TOTAL 1.3 MG/DL (0.2-1.0); THYROID STIMULATING HORMONE 1.31 uIU/ML (0.358-3.740)
--- NOTE | 2020-04-01 08:39 | REP ---
Clinical: Cough and dyspnea. Technique: Axial noncontrast images from the thoracic inlet to the upper abdomen with coronal and sagittal re-formations. Comparison: 09/29/2018 Findings: Diffuse areas of mosaic ground-glass opacities are identified throughout the bilateral lung archuleta along with elements of interstitial prominence and very small small patchy opacities in the posterior upper lobes. Mild stable mediastinal and hilar adenopathy is also noted and these findings are relatively similar to prior examination. Differential diagnosis includes chronic interstitial disease, air trapping possibly related to chronic reactive airway disease, acute multifocal pneumonia, and less likely early pulmonary vascular congestion. Atherosclerotic changes to the thoracic aorta and coronary arteries similar to prior examination without aneurysm. Mild cardiomegaly is again suggested without significant pericardial effusion. The tracheobronchial tree is patent. No evidence for pneumothorax or pleural effusion. Surrounding musculoskeletal structures demonstrate degenerative changes and old healed right rib fractures. Impression: Findings as described above including mosaic pattern of ground-glass opacities throughout the bilateral lung archuleta with interstitial prominence and very small patchy areas of infiltrate. Differential diagnosis includes chronic interstitial diseases, air trapping related to reactive airway disease/acute bronchitis, early multifocal pneumonia, and less likely pulmonary vascular congestion. Electronically Signed by Abraham Randolph MD 04/01/2020 08:31 A
--- NOTE | 2020-04-01 08:41 | REP ---
Clinical: Hypoxia. Technique: Axial noncontrast images from the lung bases to the pubic symphysis with coronal and sagittal re-formations. Comparison: 06/20/2019. Findings: Liver, spleen, pancreas, gallbladder, bilateral adrenal glands and kidneys are essentially normal/stable for noncontrast evaluation. Small hiatal hernia at the gastroesophageal junction is identified. There is no evidence for bowel obstruction or acute inflammatory process. Normal terminal ileum and appendix are identified in the right lower quadrant. Few scattered sigmoid diverticula noted without acute diverticulitis. Pelvis demonstrates prostatomegaly with mass effect on the base of the bladder. No ascites. No free air. No adenopathy. Atherosclerotic changes to the aorta and vasculature without aneurysm. Musculoskeletal structures demonstrate osteopenia and degenerative changes. Impression: 1. No acute abdominopelvic pathology appreciated. 2. Prostatomegaly. 3. Few scattered sigmoid diverticula without acute diverticulitis. 4. Hiatal hernia. Electronically Signed by Abraham Randolph MD 04/01/2020 08:33 A
[2020-04-01 09:07] LABS: ABG BASE EXCESS 2.3 (-2.0-2.0); ABG HCO3 25.8 MEQ/L (22.0-26.0); ABG O2 SATURATION 99.1 % (95.0-99.0); ABG PARTIAL PRESSURE CO2 35.7 mmHg (35.0-45.0); ABG PARTIAL PRESSURE O2 153.3 mmHg (75.0-100.0); ABG STANDARD HCO3 26.5 MEQ/L (22.0-26.0); ABG TOTAL CO2 26.8 MEQ/L (23.0-31.0); ABG pH (ARTERIAL) 7.476 UNITS (7.350-7.450)
[2020-04-01] MEDS ORDERED: LEVALBUTEROL HFA 45MCG/ACT 15 GM INHALER INH STA (09:14)
[2020-04-01] MEDS ORDERED: ALL10TAB29 PO (09:51)
[2020-04-01] MEDS ORDERED: LASI40TA9 PO (09:51)
[2020-04-01] MEDS ORDERED: SIME80TA PO (09:51)
--- NOTE | 2020-04-01 10:32 | ECGEPIP ---
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
[2020-04-01] MEDS ORDERED: MOM 30ML SUSPENSION UDC PO PRN (11:45)
[2020-04-01] MEDS ORDERED: MAALOX 30 ML SUSP *UDC PO PRN (11:45)
[2020-04-01] MEDS ORDERED: ACETAMINOPHEN TAB 650MG DOSE (2X325MG) PO PRN (11:45)
[2020-04-01] MEDS ORDERED: IPRATROPIUM 0.5MG/ALBUTEROL 2.5MG INH SOL UD 3ML (DUONEB) NEB PRN (14:45)
[2020-04-01] MEDS ORDERED: AZITHROMYCIN INJ 500 MG, VIAL MATE ADAPTER 1 EACH in D5W 250 ML IV ONE (15:00)
[2020-04-01] MEDS ORDERED: CETIRIZINE (ZyrTEC) 10 MG TAB PO PRN (15:45)
[2020-04-01] MEDS ORDERED: CLOTRIMAZOLE 1% TOPICAL CREAM 30GM TOP PRN (15:45)
--- NOTE | 2020-04-01 15:54 | HPEPDOC ---
[facility] Medical History & Physical Date of Admission Apr 01, 2020 Date of Service: Apr 01, 2020 Other Provider Huy Juarez PA-C Attending Physician: RENETTA ARENAS DO History and Physical CHIEF COMPLAINT: Severe shortness of breath HISTORY OF PRESENT ILLNESS: And patient reports that he was in his usual state of health until yesterday when he began to notice that his breathing was a little heavier, but this did not seem to concern him. He reports that he had a low-grade fever of 99.1 at home. Then, when he woke up this morning he reported that he was even more short of breath, but was reluctant to go to the hospital because of fear of being exposed to Covid 19. He held off calling the ambulance for a few hours, but is dyspnea worsened to the point where he felt it was necessary, and by the time [facility] arrived he was severely short of breath. CODE STATUS: DNR/DNI PAST MEDICAL HISTORY: Idiopathic pulmonary hemosiderosis Chronic kidney disease stage III with a baseline creatinine of approximately 1.6-1.7 Hypertension Atrial fibrillation Obstructive sleep apnea (on CPAP) Hiatal hernia GERD Anemia of chronic disease with a baseline hemoglobin of approximately 11 PTSD Manic depression History of exposure to agent orange in [place] PAST SURGICAL HISTORY: Right lung biopsy Right middle finger amputation Lens implant History of bronchoscopy, and previously had chest tube placement. SOCIAL HISTORY: He is a of the [place] and was exposed to agent orange. He quit smoking over 35 years ago. He does not drink. He does not use any illicit drugs. FAMILY HISTORY: Mother of pancreatic cancer, also had diabetes. Father had heart disease. One sister with ovarian cancer REVIEW OF SYSTEMS: Constitutional: Patient admitted to a low-grade fever yesterday, denies any chills, night sweats, recent weight gain/loss. HEENT: Patient denies blurred or double vision, transient visual disturbances, postnasal drip, epistaxis, sore throat, difficulty chewing or swallowing food. Cardiovascular: Patient denies chest discomfort/pain, palpitations, orthopnea, edema of the extremities, claudication. Respiratory: Patient is complaining of dyspnea, wheezing, he has had some nonproductive cough, denies hemoptysis. Gastrointestinal: He admits to having significant amount of gas, and some abdominal discomfort. Apparently this has been off/on for the past 1 year or so. He also has intermittent constipation as well. Patient denies nausea, vomiting, diarrhea, melena, hematochezia, hematemesis, jaundice. PHYSICAL EXAMINATION: General: Awake, alert, oriented. He is currently wearing a Venturi mask. He is able to speak in full sentences, but even this does seem to exhaust him. HEENT: Head normocephalic atraumatic, conjunctiva are pink, sclera are nonicteric. Hearing is grossly intact to conversation. Respiratory: Mild/moderate expiratory wheezing noted throughout all lung archuleta. No rales or rhonchi. Cardiovascular: Distant heart sounds, he is in atrial fibrillation on the monitor. I laid him flat on the stretcher and he did not experience any decrease in his oxygen saturation, nor did he experience any worsening in his shortness of breath. Difficult to assess JVD because of body habitus. Abdomen: Soft, nontender, obese, nondistended, no hepatosplenomegaly appreciated. Bowel sounds present. Extremities: 2+ pulses in the radial and dorsalis pedis bilaterally. No evidence of clubbing or cyanosis. No evidence of pitting edema whatsoever in the lower extremities. ELECTROCARDIOGRAM: Patient is in atrial fibrillation IMAGING: Chest x-ray Impression: Marked chronic changes similar to prior examinations. CT chest without contrast Impression: Findings as described above including mosaic pattern of ground-glass opacities throughout the bilateral lung archuleta with interstitial prominence and very small patchy areas of infiltrate. Differential diagnosis includes chronic interstitial diseases, air trapping related to reactive airway disease/acute bronchitis, early multifocal pneumonia, and less likely pulmonary vascular congestion. CT abdomen and pelvis without contrast Impression: 1. No acute abdominopelvic pathology appreciated. 2. Prostatomegaly. 3. Few scattered sigmoid diverticula without acute diverticulitis. 4. Hiatal hernia. ASSESSMENT/PLAN: It appears that he is in acute respiratory failure with hypoxemia due to an acute exacerbation of idiopathic pulmonary hemosiderosis. He has only chronic changes on x-rays, and it appears that he has groundglass opacities in multiple lobes bilaterally on CT scan which is consistent with an acute episode of idiopathic pulmonary hemosiderosis. There is a possibility that this acute exacerbation could have been triggered by community-acquired pneumonia, he did report that he had a low-grade fever just yesterday of 99.1, however he does not have a fever upon presentation to the emergency department. Therefore, he was given a dose of Rocephin in the ED, and I have added a dose of azithromycin. Pro-calcitonin is still pending at the time of this dictation, if it is in the lower range, I would strongly suggest discontinuing antibiotics. The mainstay of treatment for an acute episode of idiopathic pulmonary h emosiderosis is steroids. According to up-to-date the typical adult dose of Solu-Medrol is 500-2000 MG/day in divided doses intravenously. Recommended doses 20 MG/KG per day, which in his case would be 1000 mg, therefore I will start him on Solu-Medrol 250 mg IV every 6 hours, this dose can be tapered as soon as his breathing stabilizes (i.e. oxygen requirements decrease), currently he is still requiring a Venturi mask at 15L O2 just maintain saturations in the high 80s/low 90s. I will also start him on scheduled and PRN DuoNeb's to assist with wheezing History of CHF Although his BNP is elevated, he does not have orthopnea, nor crackles, and no evidence of fluid overload on examination. and his CT scan would not be consistent with this diagnosis either. Additionally, he was given 3 L of fluid in the ED, and continued to improve further indicating that this is not an acute exacerbation of CHF. We'll continue with home dose of furosemide, metolazone, metoprolol tartrate, spironolactone, and 2 g sodium diet. Abdominal discomfort and significant amount of gas Likely secondary to GERD and constipation. CT is unremarkable. The patient reports chronic history of constipation. Will continue with home dose of PPI, and will start him on scheduled simethicone and Senokot S. Milk of magnesia and Mylanta on an as-needed basis. History of atrial fibrillation Continue home dose of Xarelto BPH Continue home dose of finasteride and Terazosin Hyperlipidemia Continue home dose of simvastatin PTSD Continue home dose of bupropion and sertraline Chronic Anemia Likely secondary to sequestration of hemosiderin in the lungs. Continue home dose of ferrous gluconate Hyperglycemia He does not carry the diagnosis of diabetes, but he is on a small dose of glipizide. Will monitor his sugars before meals and at bedtime. DVT prophylaxis Currently anticoagulated with Xarelto Vital Signs Vital Signs Date Time Temp Pulse Resp B/P (MAP) Pulse Ox O2 Delivery O2 Flow Rate FiO2 04/01/20 14:21 97.3 89 20 107/66 (80) 92 Venturi Mask 04/01/20 07:18 15.0 Laboratory Data Labs 24H Laboratory Tests 2 04/01/20 07:14: Immature Granulocyte % (Auto) 0.8, Neutrophils (%) (Auto) 90.7H, Lymphocytes (%) (Auto) 4.3L, Monocytes (%) (Auto) 3.7, Eosinophils (%) (Auto) 0.3, Basophils (%) (Auto) 0.2, Neutrophils # (Auto) 12.1H, Lymphocytes # (Auto) 0.6L, Monocytes # (Auto) 0.5, Eosinophils # (Auto) 0.0, Basophils # (Auto) 0.0, Nucleated Red Blood Cells % (auto) 0.0, Prothrombin Time 16.1H, Prothromb Time International Ratio 1.32, Lactic Acid Level 2.1*H, Total Bilirubin 1.3H, Direct Bilirubin 0.4H, Aspartate Amino Transf (AST/SGOT) 27, Alanine Aminotransferase (ALT/SGPT) 9L, Alkaline Phosphatase 72, FC-Pau-P-Type Natriuretic Peptide 25162L, Total Protein 6.0L, Albumin 2.5L, Albumin/Globulin Ratio 0.7, Thyroid Stimulating Hormone (TSH) 1.310 04/01/20 07:39: POC Glucose (Misc Panel) 164H, POC Sodium (Misc Panel) 141, POC Potassium (Misc Panel) 3.5, POC Chloride (Misc Panel) 100, POC Total CO2 (Misc Panel) 24.0, POC Blood Urea Nitrogen (Misc Panel 39H, POC Ionized Calcium (Misc Panel) 4.5, POC Creatinine (Misc Panel) 2.0H, POC Hematocrit (Misc Panel) 34.0L 04/01/20 07:42: POC Troponin I (Misc) 0.04 04/01/20 08:27: Blood Gas Bicarbonate Standard 26.5H, Arterial Blood pH 7.476H, Arterial Blood Partial Pressure CO2 35.7, Arterial Blood Partial Pressure O2 153.3H, Arterial Blood Total CO2 26.8, Arterial Blood HCO3 25.8, Arterial Blood Base Excess 2.3H, Arterial Blood Oxygen Saturation 99.1H 04/01/20 12:32: Lactic Acid Followup at 4 Hours 2.0 CBC/BMP Laboratory Tests 04/01/20 07:14 Microbiology Microbiology 04/01/20 Respiratory Virus Panel (PCR) (JULIEN) - Final, Complete 04/01/20 Blood Culture, Received Pending 04/01/20 Blood Culture, Received Pending Home Medications Scheduled Ascorbic Acid (Vitamin C) 250 Mg Tablet, 250 MG PO DAILY Bupropion Hcl (Bupropion HCl Sr) 150 Mg Tab, 150 MG PO DAILY Cholecalciferol (Vitamin D3) (Vitamin D3) 25 Mcg Tablet, 25 MCG PO DAILY Docusate Sodium (Docusate Sodium) 100 Mg Cap, 200 MG PO BID Ferrous Gluconate (Ferrous Gluconate) 324 Mg Tab, 648 MG PO BID Finasteride (Finasteride) 5 Mg Tab, 5 MG PO DAILY Furosemide (Lasix) 40 Mg Tablet, 40 MG PO BID Glipizide (Glipizide) 5 Mg Tab, 2.5 MG PO DAILY TAKES BEFORE BREAKFAST Metolazone (Metolazone) 2.5 Mg Tablet, 2.5 MG PO DAILY Metoprolol Tartrate (Metoprolol Tartrate) 25 Mg Tab, 12.5 MG PO BID Omeprazole (Omeprazole) 20 Mg Tab, 40 MG PO DAILY Potassium Chloride (Potassium Chloride) 10 Meq Capsule.er, 40 MEQ PO BID Rivaroxaban (Xarelto) 20 Mg Tablet, 20 MG PO QHS Sertraline HCl (Sertraline HCl) 100 Mg Tab, 200 MG PO DAILY Simvastatin (Zocor) 80 Mg Tablet, 40 MG PO QHS Spironolactone (Spironolactone) 50 Mg Tablet, 100 MG PO DAILY Terazosin Hcl (Terazosin HCl) 10 Mg Cap, 10 MG PO QHS Scheduled PRN Cetirizine HCl (Cetirizine HCl) 10 Mg Tablet, 10 MG PO DAILY PRN for ALLERGIES Clotrimazole (Clotrimazole) 1% 30GM Cream..g., 1 DOSE TOP BID PRN for RASH APPLIES TO GROIN AND LEGS NEEDED FOR YEAST INFECTION Simethicone (Simethicone) 80 Mg Tab.chew, 160 MG PO ACHS PRN for GAS PAIN Allergies Coded Allergies: amlodipine (Verified Allergy, Unknown, 04/27/19) atenolol (Verified Allergy, Unknown, 04/27/19) albuterol (Verified Adverse Reaction, Mild, increased HR, 04/01/20) A-FIB/CHADSVASC A-FIB History Current/History of A-Fib/PAF?: Yes Current PO Anticoag Therapy: Yes RENETTA ARENAS DO Apr 01, 2020 15:43
[2020-04-01] MEDS ORDERED: methylPREDNISolone INJ 125 MG/2 ML VIAL (J2930) IV SCH ×2 (16:00)
[2020-04-01] MEDS: FUROSEMIDE 40 MG TAB PO SCH (16:22)
[2020-04-01] MEDS: SENOKOT S TAB PO SCH (16:22)
[2020-04-01] MEDS: SIMETHICONE 80 MG CHEW TAB PO SCH ×2 (16:22→20:49)
[2020-04-01] MEDS: methylPREDNISolone 250 MG in D5W 100 ML IV SCH (16:23)
[2020-04-01] MEDS ORDERED: GLUCAGON INJ 1MG VIAL SC PRN (17:15)
[2020-04-01] MEDS ORDERED: GLUCOSE 4GM CHEW TABLET PO PRN (17:15)
[2020-04-01] MEDS ORDERED: DEXTROSE 50% 50 ML SYRINGE IV PRN (17:15)
[2020-04-01] MEDS: HumaLOG INSULIN (NovoLOG) PER UNIT SC SCH (17:30)
[2020-04-01] MEDS: IPRATROPIUM 0.5MG/ALBUTEROL 2.5MG INH SOL UD 3ML (DUONEB) NEB SCH ×2 (18:07→20:48)
[2020-04-01] MEDS: TERAZOSIN 5 MG CAP PO SCH (20:48)
[2020-04-01] MEDS: RIVAROXABAN 20 MG TAB (XARELTO) PO SCH (20:48)
[2020-04-01] MEDS: SIMVASTATIN 40 MG TAB PO SCH (20:49)
[2020-04-01] MEDS: METOPROLOL TART 12.5 MG PER 1/2 TAB PO SCH (20:49)
[2020-04-01] MEDS: POTASSIUM CHLORIDE 10 MEQ SR TABLET PO SCH (20:49)
[2020-04-01] MEDS: FERROUS GLUCONATE 324 MG TAB PO SCH (20:49)
[2020-04-01] MEDS ORDERED: HumaLOG INSULIN (NovoLOG) PER UNIT SC SCH (21:00)
[2020-04-02] VITALS (15 sets, daily range): BP systolic 103–109; BP diastolic 55–66; O2SAT 85–99
[2020-04-02] MEDS: IPRATROPIUM 0.5MG/ALBUTEROL 2.5MG INH SOL UD 3ML (DUONEB) NEB SCH ×7 (00:15→23:54)
[2020-04-02] MEDS: methylPREDNISolone 250 MG in D5W 100 ML IV SCH ×4 (00:40→17:10)
[2020-04-02 06:04] LABS: HEMATOCRIT 30.9 % (42.0-52.0); HEMOGLOBIN 9.7 g/dl (13.5-17.5); MEAN CORPUSCULAR HGB CONC 31.4 g/dl (32.0-36.5); MEAN CORPUSCULAR VOLUME 79.6 fl (80.0-96.0); PLATELET COUNT, AUTOMATED 168 10^3/uL (150-450); RED BLOOD COUNT 3.88 10^6/uL (4.30-6.10); WHITE BLOOD COUNT 11.2 10^3/uL (4.0-10.0)
[2020-04-02 06:55] LABS: ALBUMIN 2.3 GM/DL (3.2-5.2); BILIRUBIN,TOTAL 0.5 MG/DL (0.2-1.0); CALCIUM LEVEL 8.1 MG/DL (8.8-10.2); CREATININE FOR GFR 1.55 MG/DL (0.70-1.30); GLOMERULAR FILTRATION RATE 47.4 (>42); POTASSIUM SERUM 3.2 MEQ/L (3.5-5.1); TOTAL PROTEIN 5.5 GM/DL (6.4-8.2)
[2020-04-02] MEDS: HumaLOG INSULIN (NovoLOG) PER UNIT SC SCH ×4 (07:30→20:09)
[2020-04-02] MEDS ORDERED: cefTRIAXone SOD 2 GM in D5W MINI-BAG PLUS 50 ML IV SCH (08:00)
[2020-04-02] MEDS: buPROPion **SR TABLET** (ZYBAN) 150MG PO SCH (08:16)
[2020-04-02] MEDS: OMEPRAZOLE 20 MG CAP PO SCH (08:16)
[2020-04-02] MEDS: FUROSEMIDE 40 MG TAB PO SCH ×2 (08:16→17:10)
[2020-04-02] MEDS: metOLazone 2.5 MG TAB PO SCH (08:16)
[2020-04-02] MEDS: SERTRALINE 100 MG TAB PO SCH (08:17)
[2020-04-02] MEDS: POTASSIUM CHLORIDE 10 MEQ SR TABLET PO SCH ×2 (08:17→21:09)
[2020-04-02] MEDS: METOPROLOL TART 12.5 MG PER 1/2 TAB PO SCH ×2 (08:17→21:08)
[2020-04-02] MEDS: SPIRONOLACTONE 50 MG TAB PO SCH (08:18)
[2020-04-02] MEDS: FERROUS GLUCONATE 324 MG TAB PO SCH ×2 (08:18→21:09)
[2020-04-02] MEDS: SIMETHICONE 80 MG CHEW TAB PO SCH ×3 (08:18→21:09)
[2020-04-02] MEDS: FINASTERIDE 5 MG TAB PO SCH (08:18)
[2020-04-02] MEDS: SENOKOT S TAB PO SCH (08:18)
[2020-04-02] MEDS: ASCORBIC ACID 250 MG TAB PO SCH (08:18)
[2020-04-02] MEDS: AZITHROMYCIN INJ 500 MG, VIAL MATE ADAPTER 1 EACH in D5W 250 ML IV SCH (15:45)
--- NOTE | 2020-04-02 18:05 | IPNPDOC ---
Subjective Date Seen The patient was seen on 04/02/20. Subjective Chief Complaint/HPI The patient reports that he is feeling significantly better this morning. He left his CPAP at home, therefore he did have some oxygen desaturations through the night, but he reports that he slept well. He still is severely short of breath with any sort of activity, but while at rest he seems to be comfortable. Nevertheless he remains on 10 L high flow oxygen (he is not on oxygen at baseline) General: Reports: Normal Appetite; Denies: Chills, Night Sweats, Fatigue, Malaise Pulmonary: Reports: Dyspnea; Denies: Cough, Pleuritic Chest Pain Cardiovascular: Denies: Chest Pain, Palpitations, Orthopnea, Paroxysmal Noc. Dyspnea, Lt Headedness Gastrointestinal: Denies: Nausea, Vomiting, Abdominal Pain, Diarrhea, Constipation Psych: Reports: Mood Normal; Denies: Depression, Memory Issues Objective Physical Examination General Exam: Positive: Alert, No Acute Distress Eye Exam: Positive: PERRLA, Conjunctiva & lids normal, EOMI; Negative: Sclera icteric ENT Exam: Positive: Atraumatic, Mucous membr. moist/pink, Pharynx Normal Neck Exam: Positive: Supple; Negative: JVD, thyromegaly Chest Exam: Positive: Clear to auscultation, Normal air movement Heart Exam: Positive: Rate Normal, Regular Rhythm, Normal S1, Normal S2; Negative: Murmurs, Rubs Abdomen Exam: Positive: Normal bowel sounds, Soft; Negative: Tenderness, Hepatospenomegaly Male Exam: Positive: Normal Genital Exam Extremity Exam: Positive: Normal pulses; Negative: Clubbing, Cyanosis, Edema Skin Exam: Positive: Nl turgor and temperature; Negative: Rash, Breakdown Neuro Exam: Positive: Normal Speech Psych Exam: Positive: Mental status NL, Mood NL, Oriented x 3 Assessment /Plan Problems (1) Idiopathic pulmonary hemosiderosis Status: Chronic Problem Text: Acute exacerbation/episode of known idiopathic pulmonary hemosiderosis (2) Gas pain Status: Acute (3) BPH (benign prostatic hyperplasia) Status: Chronic (4) Hyperlipidemia Status: Chronic (5) PTSD (post-traumatic stress disorder) Status: Chronic (6) Chronic anemia Status: Chronic (7) Hyperglycemia Status: Chronic (8) CHF (congestive heart failure) Status: Chronic (9) HTN (hypertension) Status: Chronic (10) Afib Status: Chronic (11) Acute respiratory failure with hypoxia Status: Acute (12) Hypokalemia Status: Acute Plan/VTE VTE Prophylaxis Ordered?: Yes (Xarelto) Plan Continue with high-dose steroids, will wean as his oxygen requirements improve. Pro-calcitonin level was still pending, however given the unlikelihood of infection, I will discontinue Rocephin at this time, and continue with a azithromycin alone. Regarding his hypokalemia, suspect that he missed a few of his home doses of potassium yesterday. He is scheduled to have 2 doses during the day. We will recheck again tomorrow if he needs any additional supplementation. Otherwise, continue with the remainder of his home medications at their usual doses for his chronic conditions. VS, I&O, 24H, Fishbone Vital Signs/I&O Vital Signs Date Time Temp Pulse Resp B/P (MAP) Pulse Ox O2 Delivery O2 Flow Rate FiO2 04/02/20 16:00 97.2 101 18 103/55 (71) 94 High Flow Cannula 12.0 04/01/20 18:29 35 I&O- Last 24 Hours up to 6 AM 04/02/20 06:00 Intake Total 2529 ml Output Total 400 ml Balance 2129 ml Laboratory Data 24H LABS Laboratory Tests 2 04/01/20 19:20: Bedside Glucose (Misc Panel) 191H 04/02/20 05:06: Nucleated Red Blood Cells % (auto) 0.0, Anion Gap 8, Glomerular Filtration Rate 47.4, Calcium Level 8.1L, Total Bilirubin 0.5#, Aspartate Amino Transf (AST/SGOT) 41H, Alanine Aminotransferase (ALT/SGPT) 20, Alkaline Phosphatase 62, Total Protein 5.5L, Albumin 2.3L, Albumin/Globulin Ratio 0.7 04/02/20 12:07: Bedside Glucose (Misc Panel) 248H 04/02/20 17:19: Bedside Glucose (Misc Panel) 282H CBC/BMP Laboratory Tests 04/02/20 05:06 Microbiology Microbiology 04/01/20 Respiratory Virus Panel (PCR) (JULIEN) - Final, Complete 04/01/20 Blood Culture - Preliminary, Resulted No growth after 24 hours . All specim... 04/01/20 Blood Culture - Preliminary, Resulted No growth after 24 hours . All specim... RENETTA ARENAS DO Apr 02, 2020 18:05
[2020-04-02] MEDS: methylPREDNISolone INJ 125 MG/2 ML VIAL (J2930) IV SCH (21:07)
[2020-04-02] MEDS: RIVAROXABAN 20 MG TAB (XARELTO) PO SCH (21:08)
[2020-04-02] MEDS: TERAZOSIN 5 MG CAP PO SCH (21:08)
[2020-04-02] MEDS: SIMVASTATIN 40 MG TAB PO SCH (21:08)
[2020-04-03] VITALS (22 sets, daily range): BP systolic 111–132; BP diastolic 63–76; O2SAT 87–100
[2020-04-03] MEDS: IPRATROPIUM 0.5MG/ALBUTEROL 2.5MG INH SOL UD 3ML (DUONEB) NEB SCH ×6 (04:00→23:28)
[2020-04-03] MEDS: methylPREDNISolone INJ 125 MG/2 ML VIAL (J2930) IV SCH ×4 (04:48→21:39)
[2020-04-03 06:35] LABS: CALCIUM LEVEL 8.5 MG/DL (8.8-10.2); CREATININE FOR GFR 1.65 MG/DL (0.70-1.30); GLOMERULAR FILTRATION RATE 44.1 (>42); POTASSIUM SERUM 2.8 MEQ/L (3.5-5.1)
[2020-04-03] MEDS ORDERED: KCL 10MEQ/100ML SWI (KRUN) 10 MEQ in IV 1 EA IV SCH (07:00)
[2020-04-03 07:25] LABS: MAGNESIUM LEVEL 2.1 MG/DL (1.8-2.4)
[2020-04-03 07:27] LABS: HEMATOCRIT 32.4 % (42.0-52.0); HEMOGLOBIN 10.1 g/dl (13.5-17.5); MEAN CORPUSCULAR HEMOGLOBIN 24.5 pg (27.0-33.0); MEAN CORPUSCULAR HGB CONC 31.2 g/dl (32.0-36.5); MEAN CORPUSCULAR VOLUME 78.6 fl (80.0-96.0); PLATELET COUNT, AUTOMATED 206 10^3/uL (150-450); RED BLOOD COUNT 4.12 10^6/uL (4.30-6.10)
[2020-04-03] MEDS: HumaLOG INSULIN (NovoLOG) PER UNIT SC SCH ×5 (07:30→21:40)
[2020-04-03] MEDS: ASCORBIC ACID 250 MG TAB PO SCH (08:18)
[2020-04-03] MEDS: FERROUS GLUCONATE 324 MG TAB PO SCH ×2 (08:18→21:42)
[2020-04-03] MEDS: buPROPion **SR TABLET** (ZYBAN) 150MG PO SCH (08:19)
[2020-04-03] MEDS: METOPROLOL TART 12.5 MG PER 1/2 TAB PO SCH ×2 (08:19→21:41)
[2020-04-03] MEDS: POTASSIUM CHLORIDE 10 MEQ SR TABLET PO SCH ×2 (08:20→21:41)
[2020-04-03] MEDS: SERTRALINE 100 MG TAB PO SCH (08:20)
[2020-04-03] MEDS: OMEPRAZOLE 20 MG CAP PO SCH (08:20)
[2020-04-03] MEDS: metOLazone 2.5 MG TAB PO SCH (08:20)
[2020-04-03] MEDS: FUROSEMIDE 40 MG TAB PO SCH ×2 (08:21→17:52)
[2020-04-03] MEDS: FINASTERIDE 5 MG TAB PO SCH (08:21)
[2020-04-03] MEDS: SENOKOT S TAB PO SCH (08:21)
[2020-04-03] MEDS: SPIRONOLACTONE 50 MG TAB PO SCH (08:21)
[2020-04-03] MEDS: SIMETHICONE 80 MG CHEW TAB PO SCH ×3 (08:25→21:42)
[2020-04-03] MEDS ORDERED: POTASSIUM CHLORIDE 10 MEQ SR TABLET PO ONE ×2 (10:00→19:00)
--- NOTE | 2020-04-03 14:37 | IPNPDOC ---
Subjective Date Seen The patient was seen on 04/03/20. Subjective Chief Complaint/HPI And patient mentions that he is feeling significantly better this morning. That being said, he is still on high flow oxygen at this time, and he does become quite winded if he gets out of bed. Otherwise, his only other complaint at this time is that of gas pain, but this also seems to be slowly improving. Otherwise, the remainder of his review of systems is negative. Objective Physical Examination General Exam: Positive: Alert, No Acute Distress ENT Exam: Positive: Atraumatic, Mucous membr. moist/pink, Pharynx Normal Neck Exam: Positive: Supple; Negative: JVD, thyromegaly Chest Exam: Positive: Clear to auscultation, Normal air movement Heart Exam: Positive: Rate Normal, Regular Rhythm, Normal S1, Normal S2; Negative: Murmurs, Rubs Abdomen Exam: Positive: Normal bowel sounds, Soft; Negative: Tenderness, Hepatospenomegaly Extremity Exam: Positive: Normal pulses; Negative: Clubbing, Cyanosis, Edema Skin Exam: Positive: Nl turgor and temperature; Negative: Rash, Breakdown Psych Exam: Positive: Mental status NL, Mood NL, Oriented x 3 Assessment /Plan Problems (1) Acute respiratory failure with hypoxia Status: Acute Response to Treatment: Improving (2) Idiopathic pulmonary hemosiderosis Status: Chronic Problem Text: Acute exacerbation/episode of known idiopathic pulmonary hemosiderosis (3) Gas pain Status: Acute (4) BPH (benign prostatic hyperplasia) Status: Chronic (5) Hyperlipidemia Status: Chronic (6) PTSD (post-traumatic stress disorder) Status: Chronic (7) Chronic anemia Status: Chronic (8) Hyperglycemia Status: Chronic (9) HTN (hypertension) Status: Chronic (10) Hypokalemia Status: Acute (11) Chronic diastolic CHF (congestive heart failure) Status: Chronic (12) Chronic atrial fibrillation Status: Chronic Plan/VTE VTE Prophylaxis Ordered?: Yes (Xarelto) Plan His acute respiratory failure with hypoxia is improving, we are slowly weaning him down, although he is still on high flow oxygen. I will reduce the dose of his steroids once again today. He continues to have persistent hypokalemia, will order an additional dose of po tassium in addition to his usual twice a day dosing. Apparently he is also very sensitive to insulin, therefore I have reduced his sliding scale to half that of our normal sliding scale, to prevent hypoglycemia. VS, I&O, 24H, Fishbone Vital Signs/I&O Vital Signs Date Time Temp Pulse Resp B/P (MAP) Pulse Ox O2 Delivery O2 Flow Rate FiO2 04/03/20 12:00 99 Nasal Cannula 8.0 04/03/20 12:00 97.2 77 20 111/63 (79) 04/01/20 18:29 35 I&O- Last 24 Hours up to 6 AM 04/03/20 05:59 Intake Total 650 ml Output Total 1875 ml Balance -1225 ml Laboratory Data 24H LABS Laboratory Tests 2 04/02/20 17:19: Bedside Glucose (Misc Panel) 282H 04/02/20 20:01: Bedside Glucose (Misc Panel) 217H 04/03/20 05:21: Nucleated Red Blood Cells % (auto) 0.0 04/03/20 05:23: Anion Gap 11, Glomerular Filtration Rate 44.1, Calcium Level 8.5L, Magnesium Level 2.1 04/03/20 11:30: Bedside Glucose (Misc Panel) 265H CBC/BMP Laboratory Tests 04/03/20 05:21 04/03/20 05:23 Microbiology Microbiology 04/01/20 Respiratory Virus Panel (PCR) (JULIEN) - Final, Complete 04/01/20 Blood Culture - Preliminary, Resulted No Growth after 48 hours. All Specime... 04/01/20 Blood Culture - Preliminary, Resulted No Growth after 48 hours. All Specime... RENETTA ARENAS DO Apr 03, 2020 14:37
[2020-04-03] MEDS: AZITHROMYCIN INJ 500 MG, VIAL MATE ADAPTER 1 EACH in D5W 250 ML IV SCH (15:26)
[2020-04-03] MEDS: RIVAROXABAN 20 MG TAB (XARELTO) PO SCH (21:42)
[2020-04-03] MEDS: TERAZOSIN 5 MG CAP PO SCH (21:42)
[2020-04-03] MEDS: SIMVASTATIN 40 MG TAB PO SCH (21:42)
[2020-04-04] VITALS (13 sets, daily range): BP systolic 114–118; BP diastolic 66–74; O2SAT 87–98
[2020-04-04 00:12] LABS: POTASSIUM SERUM 2.8 MEQ/L (3.5-5.1)
[2020-04-04] MEDS ORDERED: POTASSIUM CHL PWD 20 MEQ PACKET PO ONE (02:00)
[2020-04-04] MEDS ORDERED: KCL 10MEQ/100ML SWI (KRUN) 10 MEQ in IV 1 EA IV ONE (02:00)
[2020-04-04] MEDS: NEUTRA-PHOS 1.5 GM PACKET PO SCH ×3 (02:29→06:12)
[2020-04-04] MEDS: IPRATROPIUM 0.5MG/ALBUTEROL 2.5MG INH SOL UD 3ML (DUONEB) NEB SCH ×6 (03:30→23:29)
[2020-04-04] MEDS: methylPREDNISolone INJ 125 MG/2 ML VIAL (J2930) IV SCH (04:25)
[2020-04-04 05:24] LABS: HEMOGLOBIN 10.1 g/dl (13.5-17.5); MEAN CORPUSCULAR HEMOGLOBIN 24.9 pg (27.0-33.0); MEAN CORPUSCULAR HGB CONC 31.6 g/dl (32.0-36.5); MEAN CORPUSCULAR VOLUME 78.8 fl (80.0-96.0); PLATELET COUNT, AUTOMATED 223 10^3/uL (150-450); RED BLOOD COUNT 4.06 10^6/uL (4.30-6.10)
[2020-04-04 05:45] LABS: CALCIUM LEVEL 8.4 MG/DL (8.8-10.2); CREATININE FOR GFR 1.76 MG/DL (0.70-1.30); POTASSIUM SERUM 3.5 MEQ/L (3.5-5.1)
[2020-04-04] MEDS: methylPREDNISolone INJ 40 MG/1 ML VIAL (J2920) IV SCH ×3 (08:56→21:02)
[2020-04-04] MEDS: HumaLOG INSULIN (NovoLOG) PER UNIT SC SCH ×4 (08:56→21:00)
[2020-04-04] MEDS: FERROUS GLUCONATE 324 MG TAB PO SCH ×2 (09:01→21:05)
[2020-04-04] MEDS: METOPROLOL TART 12.5 MG PER 1/2 TAB PO SCH ×2 (09:01→21:05)
[2020-04-04] MEDS: buPROPion **SR TABLET** (ZYBAN) 150MG PO SCH (09:01)
[2020-04-04] MEDS: SERTRALINE 100 MG TAB PO SCH (09:01)
[2020-04-04] MEDS: SENOKOT S TAB PO SCH (09:01)
[2020-04-04] MEDS: metOLazone 2.5 MG TAB PO SCH (09:02)
[2020-04-04] MEDS: OMEPRAZOLE 20 MG CAP PO SCH (09:02)
[2020-04-04] MEDS: SIMETHICONE 80 MG CHEW TAB PO SCH ×3 (09:02→21:02)
[2020-04-04] MEDS: FINASTERIDE 5 MG TAB PO SCH (09:02)
[2020-04-04] MEDS: ASCORBIC ACID 250 MG TAB PO SCH (09:02)
[2020-04-04] MEDS: POTASSIUM CHLORIDE 10 MEQ SR TABLET PO SCH ×2 (09:02→21:05)
[2020-04-04] MEDS: SPIRONOLACTONE 50 MG TAB PO SCH (09:02)
[2020-04-04] MEDS: FUROSEMIDE 40 MG TAB PO SCH ×2 (09:03→17:21)
--- NOTE | 2020-04-04 13:12 | IPNPDOC ---
Subjective Date Seen The patient was seen on 04/04/20. Subjective Chief Complaint/HPI Patient reports that he is feeling significantly better today. His shortness of breath is better, he did wear his CPAP overnight. He continually is weaning down on oxygen. He also reports that his gas pains are improving, and he is passing a lot of gas, but it seems to be slowing down. I will start him on probiotic and Metamucil today, hopefully this will continue to help. Otherwise, the remainder of his review systems is negative. Objective Physical Examination General Exam: Positive: Alert, Cooperative, No Acute Distress ENT Exam: Positive: Atraumatic, Mucous membr. moist/pink, Pharynx Normal Chest Exam: Positive: Clear to auscultation, Normal air movement Heart Exam: Positive: Rate Normal, Regular Rhythm; Negative: Murmurs, Rubs Telemetry: Positive: SV Tach (had a couple runs of nonsustained V. tach in the past 24 hours) Abdomen Exam: Positive: Normal bowel sounds, Soft; Negative: Tenderness, Hepatospenomegaly Extremity Exam: Positive: Normal pulses; Negative: Clubbing, Cyanosis, Edema Psych Exam: Positive: Mental status NL, Mood NL, Oriented x 3 Assessment /Plan Problems (1) Acute respiratory failure with hypoxia Status: Acute Response to Treatment: Improving (2) Idiopathic pulmonary hemosiderosis Status: Chronic Problem Text: Acute exacerbation/episode of known idiopathic pulmonary hemosiderosis (3) Gas pain Status: Acute Response to Treatment: Improving Problem Text: Continue with simethicone TID, probiotic, fiber, Senokot S (4) BPH (benign prostatic hyperplasia) Status: Chronic (5) Hyperlipidemia Status: Chronic (6) PTSD (post-traumatic stress disorder) Status: Chronic (7) Chronic anemia Status: Chronic (8) Hyperglycemia Status: Chronic (9) HTN (hypertension) Status: Chronic (10) Hypokalemia Status: Acute (11) Chronic diastolic CHF (congestive heart failure) Status: Chronic (12) Chronic atrial fibrillation Status: Chronic Plan/VTE VTE Prophylaxis Ordered?: Yes (Xarelto) Plan The patient continues to show improvement. Oxygen requirements down to 5 L now, he does not wear any oxygen at home. Hypokalemia seems to be a chronic issue, dating back years, likely due to diuretic use, however he does have a very complicated medical regimen, and I believe the discontinuation of these would cause more harm than good, yesterday Aldactone was started, perhaps this will help prevent potassium loss. He has had a few runs of nonsustained monomorphic V. tach on the telemetry, he was asymptomatic. Continue with potassium supplementation. VS, I&O, 24H, Fishbone Vital Signs/I&O Vital Signs Date Time Temp Pulse Resp B/P (MAP) Pulse Ox O2 Delivery O2 Flow Rate FiO2 04/04/20 12:00 97.0 77 18 96 High Flow Cannula 5.0 04/04/20 09:01 118/74 04/01/20 18:29 35 I&O- Last 24 Hours up to 6 AM 04/04/20 06:00 Intake Total 1485 ml Output Total 2325 ml Balance -840 ml Laboratory Data 24H LABS Laboratory Tests 2 04/03/20 17:21: Bedside Glucose (Misc Panel) 293H 04/03/20 20:39: Bedside Glucose (Misc Panel) 254H 04/03/20 23:36: Magnesium Level 2.0 04/04/20 05:00: Nucleated Red Blood Cells % (auto) 0.0, Anion Gap 7L, Glomerular Filtration Rate 41.0L, Calcium Level 8.4L 04/04/20 12:33: Bedside Glucose (Misc Panel) 361H CBC/BMP Laboratory Tests 04/03/20 18:14 04/03/20 23:36 04/04/20 05:00 04/04/20 11:54 Microbiology Microbiology 04/01/20 Respiratory Virus Panel (PCR) (JULIEN) - Final, Complete 04/01/20 Blood Culture - Preliminary, Resulted No Growth after 72 hours. All specime... 04/01/20 Blood Culture - Preliminary, Resulted No Growth after 72 hours. All specime... RENETTA ARENAS DO Apr 04, 2020 13:12
[2020-04-04] MEDS ORDERED: NEUTRA-PHOS 1.5 GM PACKET PO ONE (13:15)
[2020-04-04] MEDS: METAMUCIL (PSYLLIUM) PACKET PO SCH (13:43)
[2020-04-04] MEDS: AZITHROMYCIN INJ 500 MG, VIAL MATE ADAPTER 1 EACH in D5W 250 ML IV SCH (15:35)
[2020-04-04] MEDS: LACTOBACILLUS ACIDOPHILUS CAP (BACID) PO SCH (17:21)
[2020-04-04 18:26] LABS: PHOSPHORUS LEVEL 2.5 MG/DL (2.5-4.9); POTASSIUM SERUM 3.2 MEQ/L (3.5-5.1)
[2020-04-04] MEDS: RIVAROXABAN 20 MG TAB (XARELTO) PO SCH (21:02)
[2020-04-04] MEDS: TERAZOSIN 5 MG CAP PO SCH (21:02)
[2020-04-04] MEDS: SIMVASTATIN 40 MG TAB PO SCH (21:02)
[2020-04-05] VITALS (20 sets, daily range): BP systolic 105–126; BP diastolic 62–76; O2SAT 88–98
[2020-04-05 01:19] LABS: POTASSIUM SERUM 3.3 MEQ/L (3.5-5.1); TROPONIN I < 0.02 NG/ML (< 0.10)
[2020-04-05] MEDS: methylPREDNISolone INJ 40 MG/1 ML VIAL (J2920) IV SCH ×4 (03:52→21:13)
[2020-04-05] MEDS: IPRATROPIUM 0.5MG/ALBUTEROL 2.5MG INH SOL UD 3ML (DUONEB) NEB SCH ×5 (04:19→20:02)
[2020-04-05 05:10] LABS: HEMATOCRIT 32.7 % (42.0-52.0); HEMOGLOBIN 10.2 g/dl (13.5-17.5); MEAN CORPUSCULAR HEMOGLOBIN 24.6 pg (27.0-33.0); MEAN CORPUSCULAR HGB CONC 31.2 g/dl (32.0-36.5); MEAN CORPUSCULAR VOLUME 78.8 fl (80.0-96.0); PLATELET COUNT, AUTOMATED 232 10^3/uL (150-450); RED BLOOD COUNT 4.15 10^6/uL (4.30-6.10); WHITE BLOOD COUNT 11.1 10^3/uL (4.0-10.0)
--- NOTE | 2020-04-05 05:25 | ECGEPIP ---
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
[2020-04-05 05:30] LABS: CALCIUM LEVEL 8.7 MG/DL (8.8-10.2); CREATININE FOR GFR 1.51 MG/DL (0.70-1.30); GLOMERULAR FILTRATION RATE 48.9 (>42); POTASSIUM SERUM 3.8 MEQ/L (3.5-5.1)
[2020-04-05] MEDS: HumaLOG INSULIN (NovoLOG) PER UNIT SC SCH ×4 (08:22→21:00)
[2020-04-05] MEDS: METAMUCIL (PSYLLIUM) PACKET PO SCH (08:22)
[2020-04-05] MEDS: metOLazone 2.5 MG TAB PO SCH (08:23)
[2020-04-05] MEDS: FINASTERIDE 5 MG TAB PO SCH (08:23)
[2020-04-05] MEDS: ASCORBIC ACID 250 MG TAB PO SCH (08:23)
[2020-04-05] MEDS: METOPROLOL TART 12.5 MG PER 1/2 TAB PO SCH ×2 (08:23→21:14)
[2020-04-05] MEDS: SIMETHICONE 80 MG CHEW TAB PO SCH ×3 (08:23→21:15)
[2020-04-05] MEDS: SERTRALINE 100 MG TAB PO SCH (08:23)
[2020-04-05] MEDS: OMEPRAZOLE 20 MG CAP PO SCH (08:23)
[2020-04-05] MEDS: LACTOBACILLUS ACIDOPHILUS CAP (BACID) PO SCH ×2 (08:23→17:18)
[2020-04-05] MEDS: SPIRONOLACTONE 50 MG TAB PO SCH (08:24)
[2020-04-05] MEDS: SENOKOT S TAB PO SCH (08:24)
[2020-04-05] MEDS: FUROSEMIDE 40 MG TAB PO SCH ×2 (08:24→17:18)
[2020-04-05] MEDS: FERROUS GLUCONATE 324 MG TAB PO SCH ×2 (08:24→21:15)
[2020-04-05] MEDS: buPROPion **SR TABLET** (ZYBAN) 150MG PO SCH (08:24)
[2020-04-05] MEDS: POTASSIUM CHLORIDE 10% LIQ 20 MEQ/15 ML UDC PO SCH ×2 (09:56→21:13)
[2020-04-05] MEDS ORDERED: HumaLOG INSULIN (NovoLOG) PER UNIT SC ONE (12:00)
[2020-04-05] MEDS: AZITHROMYCIN INJ 500 MG, VIAL MATE ADAPTER 1 EACH in D5W 250 ML IV SCH (17:18)
--- NOTE | 2020-04-05 20:07 | IPNPDOC ---
Text Note Date of Service The patient was seen on 04/05/20. NOTE SUBJECTIVE: -No complaints this morning, feels much better, now on 3L this morning. PHYSICAL EXAMINATION: General: NAD HEENT: NCAT, PERRLA, EOMI, MMM Respiratory: dry bibasilar crackles otherwise moving air well. Speaking in full sentences, on 3L NC Cardiovascular: Irregularly irregular, no noted murmurs Abdomen: Soft, nontender, obese, nondistended, no hepatosplenomegaly a ppreciated. Bowel sounds present. Extremities: 2+ pulses in the radial and dorsalis pedis bilaterally. No evidence of clubbing or cyanosis. No evidence of pitting edema in the lower extremities. Labs: WBC 11.1 hgb 10.2 platelets 232 Cr 1.51 IMAGING: Chest x-ray Impression: Marked chronic changes similar to prior examinations. CT chest without contrast Impression: Findings as described above including mosaic pattern of ground-glass opacities throughout the bilateral lung archuleta with interstitial prominence and very small patchy areas of infiltrate. Differential diagnosis includes chronic interstitial diseases, air trapping related to reactive airway disease/acute bronchitis, early multifocal pneumonia, and less likely pulmonary vascular congestion. CT abdomen and pelvis without contrast Impression: 1. No acute abdominopelvic pathology appreciated. 2. Prostatomegaly. 3. Few scattered sigmoid diverticula without acute diverticulitis. 4. Hiatal hernia. ASSESSMENT/PLAN: 69 yo man with acute idiopathic pulmonary hemosiderosis flare now improving on steroids with slow taper, from initial Solu-Medrol 250 mg IV every 6 hours. Idiopathic pulmonary hemosiderosis flare: -continue solumedrol taper now on 40Q6H -continue nebs -continue O2 weaning as tolerated History of CHF -continue with home dose of furosemide, metolazone, metoprolol tartrate, spironolactone, and 2 g sodium diet. Abdominal discomfort and significant amount of gas -Likely secondary to GERD and constipation. -CT is unremarkable. -Continue simethicone and Senokot S, with Milk of magnesia and Mylanta on an as- needed basis. History of atrial fibrillation -Continue home dose of Xarelto BPH -Continue home dose of finasteride and Terazosin Hyperlipidemia -Continue home dose of simvastatin PTSD and depression -Continue home dose of bupropion and sertraline Chronic Anemia -Likely secondary to sequestration of hemosiderin in the lungs. Continue home dose of ferrous gluconate Hyperglycemia -monitor his sugars before meals and at bedtime. DVT prophylaxis Currently anticoagulated with Xarelto VS,Fishbone, I+O VS, Fishbone, I+O Laboratory Tests 04/05/20 00:37 04/05/20 04:36 Vital Signs Date Time Temp Pulse Resp B/P (MAP) Pulse Ox O2 Delivery O2 Flow Rate FiO2 04/05/20 16:00 97.5 110 18 105/64 (78) 93 High Flow Cannula 5.0 04/01/20 18:29 35 I&O- Last 24 Hours up to 6 AM 04/05/20 06:00 Intake Total 1930 ml Output Total 1950 ml Balance -20 ml RODRI BURKS MD Apr 05, 2020 20:07
[2020-04-05] MEDS: TERAZOSIN 5 MG CAP PO SCH (21:14)
[2020-04-05] MEDS: SIMVASTATIN 40 MG TAB PO SCH (21:15)
[2020-04-05] MEDS: RIVAROXABAN 20 MG TAB (XARELTO) PO SCH (21:15)
[2020-04-06] VITALS (14 sets, daily range): BP systolic 101–111; BP diastolic 59–68; O2SAT 90–99
[2020-04-06] MEDS: IPRATROPIUM 0.5MG/ALBUTEROL 2.5MG INH SOL UD 3ML (DUONEB) NEB SCH ×6 (00:54→20:46)
[2020-04-06] MEDS: methylPREDNISolone INJ 40 MG/1 ML VIAL (J2920) IV SCH ×2 (04:46→16:05)
[2020-04-06 06:12] LABS: HEMATOCRIT 34.7 % (42.0-52.0); HEMOGLOBIN 10.9 g/dl (13.5-17.5); MEAN CORPUSCULAR HEMOGLOBIN 24.7 pg (27.0-33.0); MEAN CORPUSCULAR HGB CONC 31.4 g/dl (32.0-36.5); MEAN CORPUSCULAR VOLUME 78.5 fl (80.0-96.0); PLATELET COUNT, AUTOMATED 259 10^3/uL (150-450); RED BLOOD COUNT 4.42 10^6/uL (4.30-6.10); WHITE BLOOD COUNT 9.9 10^3/uL (4.0-10.0)
[2020-04-06 06:38] LABS: CREATININE FOR GFR 1.54 MG/DL (0.70-1.30); GLOMERULAR FILTRATION RATE 47.8 (>42); POTASSIUM SERUM 4.4 MEQ/L (3.5-5.1)
--- NOTE | 2020-04-06 07:27 | ECHO ---
DATE OF PROCEDURE: 04/01/2020 REFERRING PHYSICIAN: Dr. Bill Chahal INDICATION: Dyspnea. Study was performed on April 01 but was presented for reading on April 05. Height 175 cm, weight 109 kg. DIMENSIONS: IVS: 3.9 LVPW: 1.2 LA: 4.0 Aorta: 3.3 IVC: 2.6 FINDINGS: The study is a very limited technical quality with difficult visualization. The patient is in atrial fibrillation with controlled rate. Normal left ventricular (LV) size with mild left ventricular hypertrophy (LVH) and overall likely normal LV systolic function based on limited views. I certainly cannot rule out subtle wall motion abnormalities based on poor quality study. Right ventricle does not appear grossly enlarged. Both atria are severely enlarged. Aortic valve is sclerotic but has three cusps and preserved mobility. Mitral valve appears normal. Tricuspid valve also appears normal. Pulmonic valve was not well seen. No pericardial effusion is noted. Inferior vena cava is markedly dilated and has limited collapse with inspiration indicative of very high central venous pressure. Aortic root is normal. Aortic arch and abdominal aorta were not well seen. Doppler interrogation reveals competent aortic valve. There is trace mitral and trace tricuspid insufficiency. Calculated pulmonary artery pressure is in the low 40s based on poor quality TR jet. Evaluation of diastolic function is inconclusive due to underlying atrial fibrillation. CONCLUSIONS: 1. Study is of rather poor technical quality with difficult visualization. The patient is in atrial fibrillation with controlled rate. 2. Normal LV size with mild LVH, preserved LV systolic function. 3. Severe biatrial enlargement. 4. No hemodynamically significant valvular disease. 5. Very high central venous pressure and at least moderate pulmonary hypertension. COMMENT: Subacute bacterial endocarditis (SBE) prophylaxis is not recommended. Study is consistent with hypertensive heart disease and likely chronic atrial fibrillation.
[2020-04-06] MEDS: HumaLOG INSULIN (NovoLOG) PER UNIT SC SCH ×4 (09:15→21:00)
[2020-04-06] MEDS: OMEPRAZOLE 20 MG CAP PO SCH (09:15)
[2020-04-06] MEDS: FINASTERIDE 5 MG TAB PO SCH (09:15)
[2020-04-06] MEDS: SPIRONOLACTONE 50 MG TAB PO SCH (09:16)
[2020-04-06] MEDS: FERROUS GLUCONATE 324 MG TAB PO SCH ×2 (09:16→20:54)
[2020-04-06] MEDS: SIMETHICONE 80 MG CHEW TAB PO SCH ×3 (09:17→20:53)
[2020-04-06] MEDS: metOLazone 2.5 MG TAB PO SCH (09:17)
[2020-04-06] MEDS: LACTOBACILLUS ACIDOPHILUS CAP (BACID) PO SCH ×2 (09:18→18:14)
[2020-04-06] MEDS: ASCORBIC ACID 250 MG TAB PO SCH (09:18)
[2020-04-06] MEDS: SERTRALINE 100 MG TAB PO SCH (09:18)
[2020-04-06] MEDS: METOPROLOL TART 12.5 MG PER 1/2 TAB PO SCH ×2 (09:18→20:54)
[2020-04-06] MEDS: buPROPion **SR TABLET** (ZYBAN) 150MG PO SCH (09:19)
[2020-04-06] MEDS: SENOKOT S TAB PO SCH (09:19)
[2020-04-06] MEDS: FUROSEMIDE 40 MG TAB PO SCH ×2 (09:19→16:05)
[2020-04-06] MEDS: METAMUCIL (PSYLLIUM) PACKET PO SCH (09:20)
[2020-04-06] MEDS: POTASSIUM CHLORIDE 10% LIQ 20 MEQ/15 ML UDC PO SCH ×2 (09:20→20:54)
--- NOTE | 2020-04-06 15:51 | IPNPDOC ---
Text Note Date of Service The patient was seen on 04/06/20. NOTE SUBJECTIVE: -No complaints this morning, now down to 2L nasal canula -Discussed that we would like his cooperation with glycemic control as he has been refusing optimal insulin dosing while on high doses of steroids and is persistently hyperglycemic. PHYSICAL EXAMINATION: General: NAD HEENT: NCAT, PERRLA, EOMI, MMM Respiratory: dry bibasilar crackles otherwise moving air well. Speaking in full sentences, on 3L NC Cardiovascular: Irregularly irregular, no noted murmurs Abdomen: Soft, nontender, obese, nondistended, no hepatosplenomegaly appreciated. Bowel sounds present. Extremities: 2+ pulses in the radial and dorsalis pedis bilaterally. No evidence of clubbing or cyanosis. No evidence of pitting edema in the lower extremities. Labs: WBC 9.9 Hgb 10.9 K 4.4 Cr 1.54 IMAGING: Chest x-ray Impression: Marked chronic changes similar to prior examinations. CT chest without contrast Impression: Findings as described above including mosaic pattern of ground-glass opacities throughout the bilateral lung archuleta with interstitial prominence and very small patchy areas of infiltrate. Differential diagnosis includes chronic interstitial diseases, air trapping related to reactive airway disease/acute bronchitis, early multifocal pneumonia, and less likely pulmonary vascular congestion. CT abdomen and pelvis without contrast Impression: 1. No acute abdominopelvic pathology appreciated. 2. Prostatomegaly. 3. Few scattered sigmoid diverticula without acute diverticulitis. 4. Hiatal hernia. ASSESSMENT/PLAN: 69 yo man with acute idiopathic pulmonary hemosiderosis flare now improving on steroids with slow taper, from initial Solu-Medrol 250 mg IV every 6 hours. Idiopathic pulmonary hemosiderosis flare: -continue solumedrol taper now on 40mg IV BID -continue nebs -continue O2 weaning as tolerated History of CHF -continue with home dose of furosemide, metolazone, metoprolol tartrate, spironolactone, and 2 g sodium diet. Abdominal discomfort and significant amount of gas -Likely secondary to GERD and constipation. -CT is unremarkable. -Continue simethicone and Senokot S, with Milk of magnesia and Mylanta on an as- needed basis. History of atrial fibrillation -Continue home dose of Xarelto BPH -Continue home dose of finasteride and Terazosin Hyperlipidemia -Continue home dose of simvastatin PTSD and depression -Continue home dose of bupropion and sertraline Chronic Anemia -Likely secondary to sequestration of hemosiderin in the lungs. Continue home dose of ferrous gluconate Hyperglycemia -SSI, FSBG AC/HS, hypoglycemia protocol DVT prophylaxis Currently anticoagulated with Xarelto VS,Fishbone, I+O VS, Fishbone, I+O Laboratory Tests 04/06/20 05:44 Vital Signs Date Time Temp Pulse Resp B/P (MAP) Pulse Ox O2 Delivery O2 Flow Rate FiO2 04/06/20 07:47 97.3 69 22 106/64 (78) 92 Nasal Cannula 2.0 04/01/20 18:29 35 I&O- Last 24 Hours up to 6 AM 04/06/20 06:00 Intake Total 1200 ml Output Total 1900 ml Balance -700 ml RODRI BURKS MD Apr 06, 2020 08:01
[2020-04-06] MEDS: AZITHROMYCIN INJ 500 MG, VIAL MATE ADAPTER 1 EACH in D5W 250 ML IV SCH (16:04)
[2020-04-06] MEDS: TERAZOSIN 5 MG CAP PO SCH (20:53)
[2020-04-06] MEDS: SIMVASTATIN 40 MG TAB PO SCH (20:54)
[2020-04-06] MEDS: RIVAROXABAN 20 MG TAB (XARELTO) PO SCH (20:54)
[2020-04-07] VITALS (7 sets, daily range): BP systolic 96–115; BP diastolic 56–76; O2SAT 92–95
[2020-04-07] MEDS: IPRATROPIUM 0.5MG/ALBUTEROL 2.5MG INH SOL UD 3ML (DUONEB) NEB SCH ×6 (00:07→20:00)
[2020-04-07] MEDS: methylPREDNISolone INJ 40 MG/1 ML VIAL (J2920) IV SCH (04:00)
[2020-04-07 05:50] LABS: HEMATOCRIT 35.9 % (42.0-52.0); HEMOGLOBIN 11.3 g/dl (13.5-17.5); MEAN CORPUSCULAR HEMOGLOBIN 24.5 pg (27.0-33.0); MEAN CORPUSCULAR HGB CONC 31.5 g/dl (32.0-36.5); MEAN CORPUSCULAR VOLUME 77.7 fl (80.0-96.0); PLATELET COUNT, AUTOMATED 285 10^3/uL (150-450); RED BLOOD COUNT 4.62 10^6/uL (4.30-6.10); WHITE BLOOD COUNT 11.5 10^3/uL (4.0-10.0)
[2020-04-07 06:03] LABS: CREATININE FOR GFR 1.69 MG/DL (0.70-1.30); GLOMERULAR FILTRATION RATE 42.9 (>42); POTASSIUM SERUM 4.2 MEQ/L (3.5-5.1)
[2020-04-07] MEDS: HumaLOG INSULIN (NovoLOG) PER UNIT SC SCH ×4 (09:05→20:45)
[2020-04-07] MEDS: buPROPion **SR TABLET** (ZYBAN) 150MG PO SCH (09:06)
[2020-04-07] MEDS: POTASSIUM CHLORIDE 10% LIQ 20 MEQ/15 ML UDC PO SCH ×2 (09:06→20:35)
[2020-04-07] MEDS: METAMUCIL (PSYLLIUM) PACKET PO SCH (09:06)
[2020-04-07] MEDS: SERTRALINE 100 MG TAB PO SCH (09:07)
[2020-04-07] MEDS: SPIRONOLACTONE 50 MG TAB PO SCH (09:08)
[2020-04-07] MEDS: FINASTERIDE 5 MG TAB PO SCH (09:08)
[2020-04-07] MEDS: predniSONE 20 MG TAB PO SCH ×2 (09:08→20:36)
[2020-04-07] MEDS: SIMETHICONE 80 MG CHEW TAB PO SCH ×3 (09:08→20:36)
[2020-04-07] MEDS: SENOKOT S TAB PO SCH (09:08)
[2020-04-07] MEDS: FUROSEMIDE 40 MG TAB PO SCH ×2 (09:09→15:51)
[2020-04-07] MEDS: ASCORBIC ACID 250 MG TAB PO SCH (09:09)
[2020-04-07] MEDS: LACTOBACILLUS ACIDOPHILUS CAP (BACID) PO SCH ×2 (09:09→17:01)
[2020-04-07] MEDS: OMEPRAZOLE 20 MG CAP PO SCH (09:09)
[2020-04-07] MEDS: FERROUS GLUCONATE 324 MG TAB PO SCH ×2 (09:09→20:36)
[2020-04-07] MEDS: METOPROLOL TART 12.5 MG PER 1/2 TAB PO SCH ×2 (10:46→20:36)
[2020-04-07] MEDS: metOLazone 2.5 MG TAB PO SCH (10:46)
--- NOTE | 2020-04-07 13:49 | IPNPDOC ---
Text Note Date of Service The patient was seen on 04/07/20. NOTE SUBJECTIVE: -No complaints this morning, now on room air PHYSICAL EXAMINATION: General: NAD HEENT: NCAT, PERRLA, EOMI, MMM Respiratory: dry bibasilar crackles otherwise moving air well. Speaking in full sentences, on room air Cardiovascular: Irregularly irregular, no noted murmurs Abdomen: Soft, nontender, obese, nondistended, no hepatosplenomegaly appreciated. Bowel sounds present. Extremities: 2+ pulses in the radial and dorsalis pedis bilaterally. No evidence of clubbing or cyanosis. No evidence of pitting edema in the lower extremities. Labs: WBC 11.5 Hgb 11.3 K 4.2 Cr 1.69 IMAGING: Chest x-ray Impression: Marked chronic changes similar to prior examinations. CT chest without contrast Impression: Findings as described above including mosaic pattern of ground-glass opacities throughout the bilateral lung archuleta with interstitial prominence and very small patchy areas of infiltrate. Differential diagnosis includes chronic interstitial diseases, air trapping related to reactive airway disease/acute bronchitis, early multifocal pneumonia, and less likely pulmonary vascular congestion. CT abdomen and pelvis without contrast Impression: 1. No acute abdominopelvic pathology appreciated. 2. Prostatomegaly. 3. Few scattered sigmoid diverticula without acute diverticulitis. 4. Hiatal hernia. ASSESSMENT/PLAN: 69 yo man with acute idiopathic pulmonary hemosiderosis flare now improving on steroids with slow taper, from initial Solu-Medrol 250 mg IV every 6 hours. Idiopathic pulmonary hemosiderosis flare: -continue steroid taper now on 40mg PO pred BID -continue nebs -now on room air, will need ambulatory saturation as well before discharge History of CHF -continue with home dose of furosemide, metolazone, metoprolol tartrate, spironolactone, and 2 g sodium diet. Abdominal discomfort and significant amount of gas -Likely secondary to GERD and constipation. -CT is unremarkable. -Continue simethicone and Senokot S, with Milk of magnesia and Mylanta on an as- needed basis. History of atrial fibrillation -Continue home dose of Xarelto BPH -Continue home dose of finasteride and Terazosin Hyperlipidemia -Continue home dose of simvastatin PTSD and depression -Continue home dose of bupropion and sertraline Chronic Anemia -Likely secondary to sequestration of hemosiderin in the lungs. Continue home dose of ferrous gluconate Hyperglycemia -SSI, FSBG AC/HS, hypoglycemia protocol DVT prophylaxis Currently anticoagulated with Xarelto VS,Fishbone, I+O VS, Fishbone, I+O Laboratory Tests 04/07/20 05:07 Vital Signs Date Time Temp Pulse Resp B/P (MAP) Pulse Ox O2 Delivery O2 Flow Rate FiO2 04/07/20 07:00 97.8 76 18 96/60 (72) 95 Room Air 04/06/20 16:00 2.0 04/01/20 18:29 35 I&O- Last 24 Hours up to 6 AM 04/07/20 06:00 Intake Total 1360 ml Output Total 2725 ml Balance -1365 ml RODRI BURKS MD Apr 07, 2020 08:42
[2020-04-07] MEDS: TERAZOSIN 5 MG CAP PO SCH (20:36)
[2020-04-07] MEDS: RIVAROXABAN 20 MG TAB (XARELTO) PO SCH (20:37)
[2020-04-07] MEDS: SIMVASTATIN 40 MG TAB PO SCH (20:37)
[2020-04-08] MEDS: IPRATROPIUM 0.5MG/ALBUTEROL 2.5MG INH SOL UD 3ML (DUONEB) NEB SCH ×5 (00:30→15:35)
[2020-04-08 06:00] VITALS: BP 116/77
[2020-04-08 07:23] LABS: HEMATOCRIT 37.2 % (42.0-52.0); HEMOGLOBIN 11.9 g/dl (13.5-17.5); MEAN CORPUSCULAR HEMOGLOBIN 24.5 pg (27.0-33.0); MEAN CORPUSCULAR VOLUME 76.5 fl (80.0-96.0); PLATELET COUNT, AUTOMATED 299 10^3/uL (150-450); RED BLOOD COUNT 4.86 10^6/uL (4.30-6.10); WHITE BLOOD COUNT 18.6 10^3/uL (4.0-10.0)
[2020-04-08 07:42] LABS: CALCIUM LEVEL 8.9 MG/DL (8.8-10.2); CREATININE FOR GFR 1.74 MG/DL (0.70-1.30); GLOMERULAR FILTRATION RATE 41.5 (>42); POTASSIUM SERUM 4.6 MEQ/L (3.5-5.1)
[2020-04-08 08:12] VITALS: BP 108/75
[2020-04-08] MEDS: HumaLOG INSULIN (NovoLOG) PER UNIT SC SCH ×2 (08:12→12:44)
[2020-04-08] MEDS: SIMETHICONE 80 MG CHEW TAB PO SCH (08:12)
[2020-04-08] MEDS: METOPROLOL TART 12.5 MG PER 1/2 TAB PO SCH (08:12)
[2020-04-08] MEDS: buPROPion **SR TABLET** (ZYBAN) 150MG PO SCH (08:12)
[2020-04-08] MEDS: SPIRONOLACTONE 50 MG TAB PO SCH (08:12)
[2020-04-08] MEDS: LACTOBACILLUS ACIDOPHILUS CAP (BACID) PO SCH (08:12)
[2020-04-08] MEDS: SENOKOT S TAB PO SCH (08:12)
[2020-04-08] MEDS: FINASTERIDE 5 MG TAB PO SCH (08:13)
[2020-04-08] MEDS: predniSONE 20 MG TAB PO SCH (08:13)
[2020-04-08] MEDS: FUROSEMIDE 40 MG TAB PO SCH (08:13)
[2020-04-08] MEDS: METAMUCIL (PSYLLIUM) PACKET PO SCH (08:13)
[2020-04-08] MEDS: metOLazone 2.5 MG TAB PO SCH (08:13)
[2020-04-08] MEDS: SERTRALINE 100 MG TAB PO SCH (08:13)
[2020-04-08] MEDS: FERROUS GLUCONATE 324 MG TAB PO SCH (08:13)
[2020-04-08] MEDS: POTASSIUM CHLORIDE 10% LIQ 20 MEQ/15 ML UDC PO SCH (08:18)
[2020-04-08] MEDS: OMEPRAZOLE 20 MG CAP PO SCH (08:18)
[2020-04-08] MEDS: ASCORBIC ACID 250 MG TAB PO SCH (10:46)
[2020-04-08 11:40] VITALS: O2SAT 96
[2020-04-08] MEDS ORDERED: PRED10TA2 PO (13:08)
--- NOTE | 2020-04-08 13:36 | DS.PDOC ---
Discharge Summary General Date of Admission Apr 01, 2020 at 11:43 Date of Discharge 04/08/2020 Attending Physician: RODRI BURKS MD Discharge Summary PROCEDURES PERFORMED DURING STAY: None ADMITTING DIAGNOSES: 1. Dyspnea DISCHARGE DIAGNOSES: Acute hypoxemic respiratory failure Acute flare of chronic Idiopathic pulmonary hemosiderosis Chronic kidney disease stage III with a baseline creatinine of approximately 1.6-1.7 Hypertension Chronic atrial fibrillation Obstructive sleep apnea (on CPAP) Hiatal hernia GERD Anemia of chronic disease PTSD History of manic depression COMPLICATIONS/CHIEF COMPLAINT: Acute Respiratory Failure With Hypoxia. HISTORY OF PRESENT ILLNESS: 69 yo M who was brought in by EMS after family activated 911 for SOB and was found to be severely hypoxemic requiring non-rebreather. He reported having been in his usual state of health up to the day before presentation and then noted that his breathing was a little heavier, but this did not seem to concern him at first. He reports that he had a low-grade fever of 99.1 at home and by the next morning he reported that he was even more short of breath, but was reluctant to go to the hospital because of fear of being exposed to Covid 19. He held off calling the ambulance for a few hours, but is dyspnea worsened to the point where he felt it was necessary, and by the time EMS arrived he was severely short of breath. HOSPITAL COURSE: In the ED, he was severe hypoxemic and required supplemental oxygen, was given a dose of ceftriaxone, nebs and steroids. Work up was notable for ground-glass opacities throughout the bilateral lung archuleta with interstitial prominence and very small patchy areas of infiltrate c/f acute exacerbation of idiopathic pulmonary hemosiderosis and he was started on high dose steroids for 250mg Q6H of solumedrol as well as azithromycin. His hypoxemia started to improve and the steroids were slowly tapered. His hypoxemia resolved and he is now on room air. He is being discharged home where he will continue the steroid taper with prednisone. He is being discharged on prednisone 40mg daily with taper by 10mg every 5 days until he completes 5d of 10mg at which point he will be done. He will also follow up with his PCP after abdominal gas and bloating that has been ongoing for 2 years and is on simethicone and omeprazole. DISCHARGE MEDICATIONS: Please see below. ALLERGIES: Please see below. PHYSICAL EXAMINATION ON DISCHARGE: VITAL SIGNS: Please see below. General: NAD HEENT: NCAT, PERRLA, EOMI, MMM Respiratory: dry bibasilar crackles otherwise moving air well. Speaking in full sentences, on room air Cardiovascular: Irregularly irregular, no noted murmurs Abdomen: Soft, nontender, obese, nondistended, no hepatosplenomegaly appreciated. Bowel sounds present. Extremities: 2+ pulses in the radial and dorsalis pedis bilaterally. No evidence of clubbing or cyanosis. No evidence of pitting edema in the lower extremities. LABORATORY DATA: Please see below. IMAGING: Chest x-ray Impression: Marked chronic changes similar to prior examinations. CT chest without contrast Impression: Findings as described above including mosaic pattern of ground-glass opacities throughout the bilateral lung archuleta with interstitial prominence and very small patchy areas of infiltrate. Differential diagnosis includes chronic interstitial diseases, air trapping related to reactive airway disease/acute bronchitis, early multifocal pneumonia, and less likely pulmonary vascular congestion. CT abdomen and pelvis without contrast Impression: 1. No acute abdominopelvic pathology appreciated. 2. Prostatomegaly. 3. Few scattered sigmoid diverticula without acute diverticulitis. 4. Hiatal hernia. TTE: 1. Study is of rather poor technical quality with difficult visualization. The patient is in atrial fibrillation with controlled rate. 2. Normal LV size with mild LVH, preserved LV systolic function. 3. Severe biatrial enlargement. 4. No hemodynamically significant valvular disease. 5. Very high central venous pressure and at least moderate pulmonary hypertension. PROGNOSIS: Good ACTIVITY: As tolerated DIET: consistent carb DISCHARGE PLAN: Home with prednisone taper DISPOSITION: Home DISCHARGE INSTRUCTIONS: 1. Please take 40mg of prednisone for 5 days, then 30mg for 5 days, then 20mg for 5 days and then 10mg for 5 days. ITEMS TO FOLLOWUP ON ON OUTPATIENT: 1. IPH exacerbation DISCHARGE CONDITION: Stable TIME SPENT ON DISCHARGE: 56 minutes. Vital Signs/I&Os Vital Signs Date Time Temp Pulse Resp B/P (MAP) Pulse Ox O2 Delivery O2 Flow Rate FiO2 04/08/20 11:40 96 Room Air 04/08/20 08:12 109 108/75 04/08/20 06:00 98.1 19 04/06/20 16:00 2.0 I&O- Last 24 Hours up to 6 AM 04/08/20 06:00 Intake Total 1920 ml Output Total 2590 ml Balance -670 ml Laboratory Data Labs 24H Laboratory Tests 2 04/07/20 16:19: Bedside Glucose (Misc Panel) 274H 04/07/20 20:44: Bedside Glucose (Misc Panel) 173H 04/08/20 06:48: Nucleated Red Blood Cells % (auto) 0.0, Anion Gap 6L, Glomerular Filtration Rate 41.5L, Calcium Level 8.9 04/08/20 11:29: Bedside Glucose (Misc Panel) 266H CBC/BMP Laboratory Tests 04/08/20 06:48 FSBS Laboratory Tests Test 04/07/20 16:19 04/07/20 20:44 04/08/20 11:29 Range/Units Bedside Glucose (Misc Panel) 274 173 266 83-110 MG/DL Microbiology Microbiology 04/01/20 Respiratory Virus Panel (PCR) (JULIEN) - Final, Complete 04/01/20 Blood Culture - Final, Complete NO GROWTH AFTER 5 DAYS 04/01/20 Blood Culture - Final, Complete NO GROWTH AFTER 5 DAYS Discharge Medications Scheduled Ascorbic Acid (Vitamin C) 250 Mg Tablet, 250 MG PO DAILY, (Reported) Bupropion Hcl (Bupropion HCl Sr) 150 Mg Tab, 150 MG PO DAILY, (Reported) Cholecalciferol (Vitamin D3) (Vitamin D3) 25 Mcg Tablet, 25 MCG PO DAILY, (Reported) Docusate Sodium (Docusate Sodium) 100 Mg Cap, 200 MG PO BID, (Reported) Ferrous Gluconate (Ferrous Gluconate) 324 Mg Tab, 648 MG PO BID, (Reported) Finasteride (Finasteride) 5 Mg Tab, 5 MG PO DAILY, (Reported) Furosemide (Lasix) 40 Mg Tablet, 40 MG PO BID, (Reported) Glipizide (Glipizide) 5 Mg Tab, 2.5 MG PO DAILY, (Reported) TAKES BEFORE BREAKFAST Metolazone (Metolazone) 2.5 Mg Tablet, 2.5 MG PO DAILY, (Reported) Metoprolol Tartrate (Metoprolol Tartrate) 25 Mg Tab, 12.5 MG PO BID, (Reported) Omeprazole (Omeprazole) 20 Mg Tab, 40 MG PO DAILY, (Reported) Potassium Chloride (Potassium Chloride) 10 Meq Capsule.er, 40 MEQ PO BID, (Reported) Prednisone (Prednisone) 10 Mg Tablet, 4 TAB PO DAILY 40mg daily for 5d, then 30mg for 5d, then 20mg for 5d, then 10mg for 5d Rivaroxaban (Xarelto) 20 Mg Tablet, 20 MG PO QHS, (Reported) Sertraline HCl (Sertraline HCl) 100 Mg Tab, 200 MG PO DAILY, (Reported) Simvastatin (Zocor) 80 Mg Tablet, 40 MG PO QHS, (Reported) Spironolactone (Spironolactone) 50 Mg Tablet, 100 MG PO DAILY, (Reported) Terazosin Hcl (Terazosin HCl) 10 Mg Cap, 10 MG PO QHS, (Reported) Scheduled PRN Cetirizine HCl (Cetirizine HCl) 10 Mg Tablet, 10 MG PO DAILY PRN for ALLERGIES, (Reported) Clotrimazole (Clotrimazole) 1% 30GM Cream..g., 1 DOSE TOP BID PRN for RASH, (Reported) APPLIES TO GROIN AND LEGS NEEDED FOR YEAST INFECTION Simethicone (Simethicone) 80 Mg Tab.chew, 160 MG PO ACHS PRN for GAS PAIN, (Reported) Allergies Coded Allergies: amlodipine (Verified Allergy, Unknown, 04/27/19) atenolol (Verified Allergy, Unknown, 04/27/19) albuterol (Verified Adverse Reaction, Mild, increased HR, 04/01/20) RODRI BURKS MD Apr 08, 2020 13:35
--- NOTE | 2020-04-09 10:06 | REP ---
KUB: REASON FOR EXAM: Intestinal gas. FINDINGS: KUB shows the intestinal gas pattern to be nonspecific. The organ silhouettes insofar as delineated are unremarkable. There is no evidence of free intraperitoneal air. IMPRESSION: Nonspecific. Electronically Signed by Osmani Edmond DO 04/10/2020 08:30 A
== END 2020-04-08 15:30 | disposition home or self-care (01) | DRG 189 ==
LOC: M ED 07:03 → M ED INP 11:43 → ENRESERV 13:01 → M PCU 14:27 → M MSPAV 04-07 15:00
PROVIDERS: ADMIT Neuromusculoskeletal Medicine & OMM; ATTEND Internal Medicine
DX: J96.01 Acute respiratory failure with hypoxia (principal); J84.03 Idiopathic pulmonary hemosiderosis; I13.0 Hypertensive heart and chronic kidney disease with heart failure and stage 1 through stage 4 chronic kidney disease, or unspecified chronic kidney disease; I48.20 Chronic atrial fibrillation, unspecified; I50.32 Chronic diastolic (congestive) heart failure; E83.19 Other disorders of iron metabolism; N18.3 Chronic kidney disease, stage 3 (moderate); G47.33 Obstructive sleep apnea (adult) (pediatric); Z66 Do not resuscitate; K44.9 Diaphragmatic hernia without obstruction or gangrene; K21.9 Gastro-esophageal reflux disease without esophagitis; R14.3 Flatulence; E87.6 Hypokalemia; D63.8 Anemia in other chronic diseases classified elsewhere; F43.10 Post-traumatic stress disorder, unspecified; Z87.891 Personal history of nicotine dependence; Z77.29 Contact with and (suspected) exposure to other hazardous substances; K59.00 Constipation, unspecified; N40.0 Benign prostatic hyperplasia without lower urinary tract symptoms; R73.9 Hyperglycemia, unspecified; Z79.01 Long term (current) use of anticoagulants; Z79.84 Long term (current) use of oral hypoglycemic drugs; Z79.899 Other long term (current) drug therapy; Z88.8 Allergy status to other drugs, medicaments and biological substances; Z11.59 Encounter for screening for other viral diseases

== ENCOUNTER → 2020-07-06 | Outpatient (CLI) | payer OTHER ==
[~2020-07-06] MED LIST changes: +CETI-24 PO; +LASI40TA9 PO; +SIME80TA PO
--- NOTE | 2020-07-11 09:26 | REP ---
CT CHEST WITHOUT CONTRAST HISTORY: Idiopathic pelvic ultrasound hemosiderosis. COMPARISON: Chest CT study 04/01/2020. Chest CT study is also reviewed from 09/29/2018. CT FINDINGS: The previously noted extensive geographic pattern of ground-glass opacity throughout the upper and lower lobes and the right middle lobe have improved somewhat. There are interstitial fibrosis changes noted particularly on the right in the upper lobe postoperatively. This could be an inflammatory infiltrate. There is some adjacent visceral pleural thickening. There are areas of mild fibrosis and some residual ground-glass opacity in the lower lobes as well, although much less extensively than on the most recent prior study of 04/01/2020. There are irregular patchy nodular changes in the upper lobes a well. These are essentially unchanged. There is a granulomatous calcification along the major fissure on the right. There is a post thoracotomy lung resection suture line on the right as well. This is adjacent to some of the infiltrative and fibrotic changes. Extensive vascular calcification is noted in the coronary distribution. Normal adrenal glands are seen. Liver and spleen are normal in size and homogeneous in texture. Visualized upper abdominal structures are otherwise unremarkable. No hilar or mediastinal mass or adenopathy is observed. IMPRESSION: Ground-glass opacity pulmonary parenchymal findings are improved compared to the 04/01/2020 study. There are patchy fairly extensive areas of interstitial and subpleural fibrosis bilaterally most pronounced in the right upper lobe. MTDD
== END ==
LOC: M RAD 14:14
PROVIDERS: ATTEND Family Medicine
DX: J44.9 Chronic obstructive pulmonary disease, unspecified (principal); J84.03 Idiopathic pulmonary hemosiderosis

== ENCOUNTER 2021-01-30 14:57 | Inpatient (IN) | payer OTHER ==
[~2021-01-30] VITALS: Ht 172.7 cm; Wt 99.2 kg
[~2021-01-30 14:57] MED LIST changes: +SIME80CH5 PO; -SIME80TA PO; +VITA-168 PO
[2021-01-30 16:45] LABS: ABG BASE EXCESS 4.5 (-2.0-2.0); ABG HCO3 25.5 MEQ/L (22.0-26.0); ABG O2 SATURATION 86.2 % (95.0-99.0); ABG PARTIAL PRESSURE CO2 27.6 mmHg (35.0-45.0); ABG PARTIAL PRESSURE O2 45.7 mmHg (75.0-100.0); ABG STANDARD HCO3 28.3 MEQ/L (22.0-26.0); ABG TOTAL CO2 26.3 MEQ/L (23.0-31.0); ABG pH (ARTERIAL) 7.583 UNITS (7.350-7.450)
--- NOTE | 2021-01-30 16:47 | REP ---
INDICATION: DYSPNEA/COUGH. COMPARISON: 04/28/2020. TECHNIQUE: Single portable AP view of the chest was performed. FINDINGS: Significant fibrotic changes are again seen bilaterally. These appear fairly similar when compared to the prior study, however, I cannot exclude subtle superimposed infiltrate. The heart does not appear to be significantly enlarged. The mediastinal silhouette is unremarkable. IMPRESSION: Significant fibrotic changes appears similar to prior study. Cannot exclude subtle superimposed acute infiltrate. <Electronically signed by Bill Mueller > 01/30/21 [id number]
[2021-01-30 16:53] LABS: BASO % 0.4 % (0.0-1.0); EOS % 1.7 % (0.0-3.0); HEMATOCRIT 41.5 % (42.0-52.0); HEMOGLOBIN 13.3 g/dl (13.5-17.5); MEAN CORPUSCULAR HEMOGLOBIN 24.4 pg (27.0-33.0); MEAN CORPUSCULAR VOLUME 76.3 fl (80.0-96.0); MONO % 9.2 % (2.0-8.0); NEUTROPHILS % 75.1 % (36.0-66.0); PLATELET COUNT, AUTOMATED 213 10^3/uL (150-450); RED BLOOD COUNT 5.44 10^6/uL (4.30-6.10); WHITE BLOOD COUNT 9.3 10^3/uL (4.0-10.0)
[2021-01-30 16:54] LABS: EOS # 0.2 10^3/uL (0.0-0.5); LYMPH # 1.2 10^3/uL (1.5-5.0); MONO # 0.9 10^3/uL (0.0-0.8)
[2021-01-30 17:34] LABS: ALBUMIN 3.1 GM/DL (3.2-5.2); ALT/SGPT 20 U/L (12-78); BILIRUBIN,DIRECT 0.3 MG/DL (0.0-0.2); BILIRUBIN,TOTAL 0.9 MG/DL (0.2-1.0); BLOOD UREA NITROGEN 47 MG/DL (7-18); CALCIUM LEVEL 9.4 MG/DL (8.8-10.2); CARBON DIOXIDE LEVEL 33 MEQ/L (21-32); CHLORIDE LEVEL 96 MEQ/L (98-107); CK-MB VALUE MASS < 1.0 NG/ML (<3.6); CPK CREATINE PHOSPHOKINASE 59 U/L (39-308); CREATININE FOR GFR 2.03 MG/DL (0.70-1.30); GLOMERULAR FILTRATION RATE 34.6 (>42); GLUCOSE, FASTING 127 MG/DL (70-100); MB/CK RELATIVE INDEX 1.69 (< OR =4); NT-PRO BNP 822 PG/ML (<125); POTASSIUM SERUM 2.6 MEQ/L (3.5-5.1); SODIUM LEVEL 137 MEQ/L (136-145); TOTAL PROTEIN 6.9 GM/DL (6.4-8.2); TROPONIN I < 0.02 NG/ML (< 0.10)
[2021-01-30] MEDS ORDERED: POTASSIUM CHLORIDE 10 MEQ SR TABLET PO ONE (17:35)
[2021-01-30] MEDS ORDERED: KCL 10MEQ/100ML SWI (KRUN) 10 MEQ in IV 1 EA IV ONE (18:00)
[2021-01-30] MEDS ORDERED: ZOLO100T PO (18:15)
[2021-01-30] MEDS ORDERED: POTA20TA6 PO (18:17)
--- NOTE | 2021-01-30 18:24 | HPEPDOC ---
[facility] Medical History & Physical Date of Admission January 30, 2021 Date of Service: January 30, 2021 History and Physical CHIEF COMPLAINT: SOB HISTORY OF PRESENT ILLNESS: 70-year-old male presents for 2 day history of worsening shortness of breath. He also notes worsening cough, nonproductive, as well as some sinus congestion. He denies chest pain, abdominal pain, nausea, vomiting, diarrhea, headaches. He denies any sick contacts or recent travel. 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 REVIEW OF SYSTEMS: Negative except as per HPI. HOME MEDICATIONS: Please see below. PHYSICAL EXAMINATION: VITAL SIGNS: See below General: NAD, lying comfortably in bed HEENT: NC/AT, EOMI Lungs: CTA B/L, diminished breath sounds Heart: +S1S2, RRR Abd: soft, NT, +BS Ext: no edema LABORATORY DATA: See below. MICROBIOLOGY: Please see below. A/P: 70 year old male with PMHx of idiopathic pulmonary hemosiderosis not on supplemental oxygen, presents for two day history of worsening shortness of breath. #SOB/respiratory distress - acute hypoxic respiratory failure - discussed with pulmonology - previous admissions reviewed - high dose steroids - solumedrol 250 IV q6h, ceftriaxone - supplemental oxygen to maintain O2 sats greater than 90% #CKDIII - baseline creatinine of approximately 1.6-1.7 #hypokalemia - continue to follow and replete as needed #HTN - lopressor #chronic atrial fibrillation - lopressor/xarelto #Obstructive sleep apnea (on CPAP) #GERD - omeprazole #Anemia of chronic disease - H/H stable #DVT prophylaxis - as above on xarelto Vital Signs Vital Signs Date Time Temp Pulse Resp B/P (MAP) Pulse Ox O2 Delivery O2 Flow Rate FiO2 01/30/21 17:30 83 106/61 (76) 95 Room Air 01/30/21 16:12 16 01/30/21 14:59 98.0 Laboratory Data Labs 24H Laboratory Tests 2 01/30/21 16:30: Blood Gas Bicarbonate Standard 28.3H, Arterial Blood pH 7.583H, Arterial Blood Partial Pressure CO2 27.6L, Arterial Blood Partial Pressure O2 45.7*L, Arterial Blood Total CO2 26.3, Arterial Blood HCO3 25.5, Arterial Blood Base Excess 4.5H, Arterial Blood Oxygen Saturation 86.2L 01/30/21 16:36: Immature Granulocyte % (Auto) 0.6, Neutrophils (%) (Auto) 75.1H, Lymphocytes (%) (Auto) 13.0L, Monocytes (%) (Auto) 9.2H, Eosinophils (%) (Auto) 1.7, Basophils (%) (Auto) 0.4, Neutrophils # (Auto) 7.0, Lymphocytes # (Auto) 1.2L, Monocytes # (Auto) 0.9H, Eosinophils # (Auto) 0.2, Basophils # (Auto) 0.0, Nucleated Red Blood Cells % (auto) 0.0, Anion Gap 8, Glomerular Filtration Rate 34.6L, Calcium Level 9.4, Total Bilirubin 0.9, Direct Bilirubin 0.3H, Aspartate Amino Transf (AST/SGOT) 26, Alanine Aminotransferase (ALT/SGPT) 20, Alkaline Phosphatase 69, Total Creatine Kinase 59, Creatine Kinase MB < 1.0, Creatine Kinase MB Relative Index 1.69, Troponin I < 0.02, HQ-Xkm-[id number]-Type Natriuretic Peptide 822H, Total Protein 6.9, Albumin 3.1L, Albumin/Globulin Ratio 0.8, Thyroid Stimulating Hormone (TSH) 1.370 CBC/BMP Laboratory Tests 01/30/21 16:36 Microbiology Microbiology 01/30/21 Respiratory Virus Panel (PCR) ([facility]), Received Pending Home Medications Scheduled Ascorbic Acid (Vitamin C) 250 Mg Tablet, 250 MG PO DAILY Bupropion Hcl (Bupropion HCl Sr) 150 Mg Tab, 150 MG PO DAILY Cholecalciferol (Vitamin D3) (Vitamin D3) 25 Mcg Tablet, 25 MCG PO DAILY Docusate Sodium (Docusate Sodium) 100 Mg Cap, 200 MG PO BID Ferrous Gluconate (Ferrous Gluconate) 324 Mg Tab, 648 MG PO BID Finasteride (Finasteride) 5 Mg Tab, 5 MG PO DAILY Furosemide (Lasix) 40 Mg Tablet, 80 MG PO DAILY Glipizide (Glipizide) 5 Mg Tab, 2.5 MG PO DAILY TAKES BEFORE BREAKFAST Metolazone (Metolazone) 2.5 Mg Tablet, 2.5 MG PO DAILY Metoprolol Tartrate (Metoprolol Tartrate) 25 Mg Tab, 12.5 MG PO BID Omeprazole (Omeprazole) 20 Mg Tab, 40 MG PO DAILY Potassium Chloride (Potassium Chloride) 20 Meq Tab.er.prt, 40 MEQ PO BID Rivaroxaban (Xarelto) 20 Mg Tablet, 20 MG PO QHS Sertraline Hcl (Zoloft) 100 Mg Tablet, 200 MG PO DAILY Simvastatin (Zocor) 80 Mg Tablet, 40 MG PO QHS Spironolactone (Spironolactone) 50 Mg Tablet, 100 MG PO DAILY Terazosin Hcl (Terazosin HCl) 10 Mg Cap, 10 MG PO QHS Scheduled PRN Cetirizine HCl (Cetirizine HCl) 10 Mg Tablet, 10 MG PO DAILY PRN for ALLERGIES Clotrimazole (Clotrimazole) 1% 30GM Cream..g., 1 DOSE TOP BID PRN for RASH APPLIES TO GROIN AND LEGS NEEDED FOR YEAST INFECTION Simethicone (Simethicone) 80 Mg Tab.chew, 160 MG PO ACHS PRN for GAS PAIN Allergies Coded Allergies: amlodipine (Verified Allergy, Unknown, 04/27/19) atenolol (Verified Allergy, Unknown, 04/27/19) albuterol (Verified Adverse Reaction, Mild, increased HR, 04/01/20) A-FIB/CHADSVASC A-FIB History Current/History of A-Fib/PAF?: Yes Current PO Anticoag Therapy: Yes SITA TONG MD January 30, 2021 18:24
[2021-01-30] MEDS ORDERED: SIMETHICONE 80MG CHEW TAB PO PRN (18:25)
[2021-01-30] MEDS ORDERED: CLOTRIMAZOLE 1% TOPICAL CREAM 30GM TOP PRN (18:25)
[2021-01-30] MEDS ORDERED: CETIRIZINE (ZyrTEC) 10 MG TAB PO PRN (18:25)
--- NOTE | 2021-01-30 19:22 | REPVR ---
PROCEDURE INFORMATION: Exam: CT Chest Without Contrast; Diagnostic Exam date and time: 01/30/2021 6:08 PM Age: 70 years old Clinical indication: Shortness of breath; Additional info: SOB TECHNIQUE: Imaging protocol: Diagnostic computed tomography of the chest without contrast. 3D rendering (Not supervised by radiologist): MIP and/or 3D reconstructed images were created by the technologist. Radiation optimization: All CT scans at this facility use at least one of these dose optimization techniques: automated exposure control; mA and/or kV adjustment per patient size (includes targeted exams where dose is matched to clinical indication); or iterative reconstruction. COMPARISON: CT Chest without contrast 07/06/2020 2:43 PM FINDINGS: Lungs: Extensive geographic pattern of ground-glass opacity throughout the upper and lower lobes. Fibrosis in the right upper lobe. A focus of fibrosis/infiltrate in the right upper lobe. Pleural spaces: Unremarkable. No pneumothorax. No pleural effusion. Heart: Coronary vasculature calcifications. Aorta: Unremarkable. No aortic aneurysm. Lymph nodes: Unremarkable. No enlarged lymph nodes. Bones/joints: Unremarkable. No acute fracture. Soft tissues: Unremarkable. IMPRESSION: 1. Extensive ground-glass opacities in bilateral lungs with no significant change from prior study. 2. Small patch of the fibrosis/infiltrate in the right upper lobe. Electronically signed by: Sorin Pizarro On 01/30/2021 19:22:12 PM
--- NOTE | 2021-01-30 19:50 | ECGEPIP ---
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
[2021-01-30] MEDS: methylPREDNISolone 125MG 2ML VIAL IV SCH (20:20)
[2021-01-30 21:40] VITALS: BP 114/68
[2021-01-30] MEDS: METOPROLOL TART 12.5 MG PER 1/2 TAB PO SCH (22:36)
[2021-01-30] MEDS: RIVAROXABAN 20 MG TAB (XARELTO) PO SCH (22:36)
[2021-01-30] MEDS: POTASSIUM CHLORIDE 10 MEQ SR TABLET PO SCH (22:37)
[2021-01-30] MEDS: SIMVASTATIN 40 MG TAB PO SCH (22:38)
[2021-01-30] MEDS: TERAZOSIN 5MG CAPSULE PO SCH (22:38)
[2021-01-30] MEDS: DOCUSATE SODIUM 100MG CAPSULE PO SCH (22:38)
[2021-01-30] MEDS: FERROUS GLUCONATE 324 MG TAB PO SCH (22:39)
[2021-01-30] MEDS: cefTRIAXone SOD 1 GM in D5W MINI-BAG PLUS 50 ML IV SCH (22:39)
[2021-01-31] VITALS: BP 130/56
[2021-01-31] MEDS: methylPREDNISolone 125MG 2ML VIAL IV SCH ×4 (01:26→19:38)
[2021-01-31 04:00] VITALS: BP 106/65
[2021-01-31 05:42] LABS: HEMATOCRIT 42.6 % (42.0-52.0); HEMOGLOBIN 13.5 g/dl (13.5-17.5); MEAN CORPUSCULAR HEMOGLOBIN 24.5 pg (27.0-33.0); MEAN CORPUSCULAR HGB CONC 31.7 g/dl (32.0-36.5); MEAN CORPUSCULAR VOLUME 77.5 fl (80.0-96.0); PLATELET COUNT, AUTOMATED 222 10^3/uL (150-450); WHITE BLOOD COUNT 4.8 10^3/uL (4.0-10.0)
[2021-01-31 05:52] LABS: CREATININE FOR GFR 2.03 MG/DL (0.70-1.30); GLOMERULAR FILTRATION RATE 34.6 (>42); POTASSIUM SERUM 3.3 MEQ/L (3.5-5.1)
[2021-01-31 08:00] VITALS: BP 105/74
[2021-01-31] MEDS: SERTRALINE 100 MG TAB PO SCH ×2 (10:00→10:01)
[2021-01-31] MEDS: SPIRONOLACTONE 50 MG TAB PO SCH (10:00)
[2021-01-31] MEDS: OMEPRAZOLE 20 MG CAP PO SCH ×2 (10:00→10:02)
[2021-01-31] MEDS: FINASTERIDE 5 MG TAB PO SCH ×2 (10:00→10:02)
[2021-01-31] MEDS: FUROSEMIDE 40 MG TAB PO SCH (10:00)
[2021-01-31] MEDS: ASCORBIC ACID 250 MG TAB PO SCH ×2 (10:00→10:01)
[2021-01-31] MEDS: FERROUS GLUCONATE 324 MG TAB PO SCH ×2 (10:01→21:04)
[2021-01-31] MEDS: metOLazone 2.5 MG TAB PO SCH (10:01)
[2021-01-31] MEDS: METOPROLOL TART 12.5 MG PER 1/2 TAB PO SCH ×2 (10:02→21:06)
[2021-01-31] MEDS: POTASSIUM CHLORIDE 10 MEQ SR TABLET PO SCH ×2 (10:02→21:04)
[2021-01-31] MEDS: DOCUSATE SODIUM 100MG CAPSULE PO SCH ×2 (10:03→21:03)
[2021-01-31] MEDS ORDERED: SLF 3 ML SYR IV PRN (11:05)
[2021-01-31 12:00] VITALS: BP 104/67
[2021-01-31] MEDS: buPROPion **SR TABLET** (ZYBAN) 150MG PO SCH ×2 (12:48→12:50)
[2021-01-31] MEDS: glipiZIDE *2.5MG* 1/2 TABLET PO SCH (12:49)
[2021-01-31] MEDS: SLF 3 ML SYR IV SCH ×2 (12:50→22:06)
[2021-01-31 16:00] VITALS: BP 118/74
[2021-01-31 19:04] VITALS: BP 108/65
--- NOTE | 2021-01-31 20:52 | IPNPDOC ---
Subjective Date Seen The patient was seen on 01/31/21. Subjective Chief Complaint/HPI Mr. Quintero is a 70 year old male with idiopathic pulmonary hemosiderosis who is here for dyspnea. This morning, he denies any chest pain or dyspnea. He still required 4L of oxygen. Otherwise denies any hemoptysis. I touch based with pulmonology, Dr. Flowers. As long has he does not have hemoptysis or drop in H&H, we can continue the anticoagulation. Objective Physical Examination General Exam: Positive: Alert, Cooperative Eye Exam: Negative: Sclera icteric ENT Exam: Positive: Atraumatic Neck Exam: Positive: Supple Chest Exam: Positive: Clear to auscultation, Diminished Heart Exam: Positive: Rate Normal, Irregular Rhythm Abdomen Exam: Positive: Normal bowel sounds, Soft; Negative: Tenderness Extremity Exam: Negative: Edema Neuro Exam: Positive: Normal Speech Psych Exam: Positive: Mental status NL, Mood NL Assessment /Plan Assessment Mr. Quintero is a 70 year old male with idiopathic pulmonary hemosiderosis who is here for dyspnea and hypoxia. At home, he is normally not on oxygen. CT chest demonstrates extensive ground glass opacities, but unchanged from prior. Also demonstrates fibrosis vs infiltrate in the right upper lobe. Otherwise, spoke with pulmonology about idiopathic pulmonary hemosiderosis. Recommended high dose steroids. Plan/VTE VTE Prophylaxis Ordered?: Yes Plan 1. Acute hypoxic respiratory failure -ABG pO2 45.7 -Unlikely pneumonia, but will continue antibiotics while inpatient -Continue high dose steroids for idiopathic pulmonary hemosiderosis -Required 4L of oxygen on admission. Continue weaning oxygen as tolerated 2. Idiopathic pulmonary hemosiderosis -May be causing hypoxia -No hemoptysis -Continue high dose steroids 3. IZZY on CKD stage III -Baseline at 1.6 -Creatinine elevated at 2 -Possibly secondary to hypoxia -Continue with supplemental oxygen and supportive care 4. Chronic atrial fibrillation -Continue Xarelto and Lopressor 5. Hypertension -Continue spironolactone, metolazone, Lopressor 6. Obstructive sleep apnea -May continue CPAP 7. GERD -Continue omeprazole 8. Anemia of chronic disease -Continue iron supplementation 9. DVT ppx -On Xarelto Disposition: Patient will need to be weaned off oxygen and then started on a steroid taper. VS, I&O, 24H, Fishbone Vital Signs/I&O Vital Signs Date Time Temp Pulse Resp B/P (MAP) Pulse Ox O2 Delivery O2 Flow Rate FiO2 01/31/21 19:04 97.1 92 18 108/65 (79) 97 Nasal Cannula 2.0 I&O- Last 24 Hours up to 6 AM 01/31/21 06:00 Intake Total 0 ml Output Total 250 ml Balance -250 ml Laboratory Data 24H LABS Laboratory Tests 2 01/31/21 04:55: Nucleated Red Blood Cells % (auto) 0.0, Anion Gap 9, Glomerular Filtration Rate 34.6L, Calcium Level 10.0, Procalcitonin 0.10 CBC/BMP Laboratory Tests 01/31/21 04:55 Microbiology Microbiology 01/30/21 Respiratory Virus Panel (PCR) ([facility]) - Final, Complete DARRION MASON DO January 31, 2021 20:52
[2021-01-31] MEDS: RIVAROXABAN 20 MG TAB (XARELTO) PO SCH (21:04)
[2021-01-31] MEDS: TERAZOSIN 5MG CAPSULE PO SCH (21:05)
[2021-01-31] MEDS: SIMVASTATIN 40 MG TAB PO SCH (21:05)
[2021-01-31] MEDS: cefTRIAXone SOD 1 GM in D5W MINI-BAG PLUS 50 ML IV SCH (21:13)
[2021-02-01 00:15] VITALS: BP 99/56
[2021-02-01] MEDS: methylPREDNISolone 125MG 2ML VIAL IV SCH ×3 (00:59→17:54)
[2021-02-01 04:00] VITALS: BP 96/64
[2021-02-01 06:00] LABS: HEMATOCRIT 40.2 % (42.0-52.0); HEMOGLOBIN 12.6 g/dl (13.5-17.5); MEAN CORPUSCULAR HEMOGLOBIN 24.2 pg (27.0-33.0); MEAN CORPUSCULAR HGB CONC 31.3 g/dl (32.0-36.5); MEAN CORPUSCULAR VOLUME 77.3 fl (80.0-96.0); PLATELET COUNT, AUTOMATED 234 10^3/uL (150-450); WHITE BLOOD COUNT 15.1 10^3/uL (4.0-10.0)
[2021-02-01] MEDS: SLF 3 ML SYR IV SCH ×3 (06:12→20:32)
[2021-02-01 06:19] LABS: CALCIUM LEVEL 9.1 MG/DL (8.8-10.2); CREATININE FOR GFR 1.86 MG/DL (0.70-1.30); GLOMERULAR FILTRATION RATE 38.3 (>42); MAGNESIUM LEVEL 2.5 MG/DL (1.8-2.4); POTASSIUM SERUM 3.2 MEQ/L (3.5-5.1)
[2021-02-01 08:00] VITALS: BP 118/55
[2021-02-01] MEDS: SPIRONOLACTONE 50 MG TAB PO SCH (08:20)
[2021-02-01] MEDS: OMEPRAZOLE 20 MG CAP PO SCH (08:20)
[2021-02-01] MEDS: POTASSIUM CHLORIDE 10 MEQ SR TABLET PO SCH ×2 (08:21→20:27)
[2021-02-01] MEDS: metOLazone 2.5 MG TAB PO SCH (08:21)
[2021-02-01] MEDS: DOCUSATE SODIUM 100MG CAPSULE PO SCH ×2 (08:21→20:27)
[2021-02-01] MEDS: SERTRALINE 100 MG TAB PO SCH (08:21)
[2021-02-01] MEDS: FINASTERIDE 5 MG TAB PO SCH (08:21)
[2021-02-01] MEDS: FERROUS GLUCONATE 324 MG TAB PO SCH ×2 (08:22→20:28)
[2021-02-01] MEDS: FUROSEMIDE 40 MG TAB PO SCH (08:22)
[2021-02-01] MEDS: METOPROLOL TART 12.5 MG PER 1/2 TAB PO SCH ×2 (08:22→20:26)
[2021-02-01] MEDS: buPROPion **SR TABLET** (ZYBAN) 150MG PO SCH (08:22)
[2021-02-01] MEDS: ASCORBIC ACID 250 MG TAB PO SCH (08:22)
[2021-02-01] MEDS: glipiZIDE *2.5MG* 1/2 TABLET PO SCH (08:22)
[2021-02-01 12:00] VITALS: BP 133/62
--- NOTE | 2021-02-01 15:06 | IPNPDOC ---
Subjective Date Seen The patient was seen on 02/01/21. Subjective Chief Complaint/HPI Mr. Quintero is a 70 year old male with idiopathic pulmonary hemosiderosis who is here for dyspnea. This morning, he was able to be weaned off of oxygen. Denies chest pain or dyspnea. Discussed steroid taper with patient. He tells me once in the past, they stopped his steroids abruptly, and he had synopsized at home. Starting steroid taper today. Objective Physical Examination General Exam: Positive: Alert, Cooperative Eye Exam: Negative: Sclera icteric ENT Exam: Positive: Atraumatic Neck Exam: Positive: Supple Chest Exam: Positive: Clear to auscultation, Diminished Heart Exam: Positive: Rate Normal, Irregular Rhythm Abdomen Exam: Positive: Normal bowel sounds, Soft; Negative: Tenderness Extremity Exam: Negative: Edema Neuro Exam: Positive: Normal Speech Psych Exam: Positive: Mental status NL, Mood NL Assessment /Plan Assessment Mr. Quintero is a 70 year old male with idiopathic pulmonary hemosiderosis who is here for dyspnea and hypoxia. At home, he is normally not on oxygen. CT chest demonstrates extensive ground glass opacities, but unchanged from prior. Also demonstrates fibrosis vs infiltrate in the right upper lobe. Otherwise, spoke with pulmonology about idiopathic pulmonary hemosiderosis. Recommended high dose steroids. Hypoxia resolved. Patient will need to be tapered off of high dose steroids. Will start with 250mg BID, then 250mg qD, then 125mg qD, then PO prednisone taper which can be completed at home. Plan/VTE VTE Prophylaxis Ordered?: Yes Plan 1. Acute hypoxic respiratory failure -ABG pO2 45.7 -Unlikely pneumonia, but will continue antibiotics while inpatient -Continue high dose steroids for idiopathic pulmonary hemosiderosis -Required 4L of oxygen on admission. Continue weaning oxygen as tolerated -Now off of oxygen, starting steroid taper today 2. Idiopathic pulmonary hemosiderosis -May be causing hypoxia -No hemoptysis -No longer requiring oxygen. Starting steroid taper today 3. IZZY on CKD stage III -Baseline at 1.6 -Creatinine elevated at 2 -Possibly secondary to hypoxia -Continue with supplemental oxygen and supportive care -Improving 4. Chronic atrial fibrillation -Continue Xarelto and Lopressor 5. Hypertension -Continue spironolactone, metolazone, Lopressor 6. Obstructive sleep apnea -May continue CPAP 7. GERD -Continue omeprazole 8. Anemia of chronic disease -Continue iron supplementation 9. DVT ppx -On Xarelto Disposition: Patient has history of syncope from abruptly stopping steroids. Will taper steroids over the next few days. Will start with 250mg BID, then 250mg qD, then 125mg qD, then PO prednisone taper which can be completed at home. VS, I&O, 24H, Fishbone Vital Signs/I&O Vital Signs Date Time Temp Pulse Resp B/P (MAP) Pulse Ox O2 Delivery O2 Flow Rate FiO2 02/01/21 12:00 96.4 63 18 133/62 (85) 96 Room Air 02/01/21 08:00 2.0 I&O- Last 24 Hours up to 6 AM 02/01/21 06:00 Intake Total 1490 ml Output Total 2050 ml Balance -560 ml Laboratory Data 24H LABS Laboratory Tests 2 02/01/21 05:29: Nucleated Red Blood Cells % (auto) 0.0, Anion Gap 8, Glomerular Filtration Rate 38.3L, Calcium Level 9.1, Magnesium Level 2.5H CBC/BMP Laboratory Tests 02/01/21 05:29 Microbiology Microbiology 01/30/21 Respiratory Virus Panel (PCR) ([facility]) - Final, Complete DARRION MASON DO February 01, 2021 15:06
[2021-02-01 20:24] VITALS: BP 102/67
[2021-02-01] MEDS: cefTRIAXone SOD 1 GM in D5W MINI-BAG PLUS 50 ML IV SCH (20:25)
[2021-02-01] MEDS: SIMVASTATIN 40 MG TAB PO SCH (20:27)
[2021-02-01] MEDS: RIVAROXABAN 20 MG TAB (XARELTO) PO SCH (20:27)
[2021-02-01] MEDS: TERAZOSIN 5MG CAPSULE PO SCH (20:28)
[2021-02-02 04:30] VITALS: BP 98/56
[2021-02-02 05:26] LABS: HEMATOCRIT 39.8 % (42.0-52.0); HEMOGLOBIN 12.6 g/dl (13.5-17.5); MEAN CORPUSCULAR HEMOGLOBIN 24.1 pg (27.0-33.0); MEAN CORPUSCULAR HGB CONC 31.7 g/dl (32.0-36.5); MEAN CORPUSCULAR VOLUME 76.2 fl (80.0-96.0); PLATELET COUNT, AUTOMATED 256 10^3/uL (150-450); RED BLOOD COUNT 5.22 10^6/uL (4.30-6.10); WHITE BLOOD COUNT 16.7 10^3/uL (4.0-10.0)
[2021-02-02 05:50] LABS: CALCIUM LEVEL 9.5 MG/DL (8.8-10.2); CREATININE FOR GFR 1.82 MG/DL (0.70-1.30); GLOMERULAR FILTRATION RATE 39.3 (>42); POTASSIUM SERUM 3.3 MEQ/L (3.5-5.1)
[2021-02-02] MEDS: SLF 3 ML SYR IV SCH ×3 (06:45→20:12)
[2021-02-02 08:00] VITALS: BP 97/50
[2021-02-02] MEDS: FERROUS GLUCONATE 324 MG TAB PO SCH ×2 (08:04→20:11)
[2021-02-02] MEDS: OMEPRAZOLE 20 MG CAP PO SCH (08:04)
[2021-02-02] MEDS: FINASTERIDE 5 MG TAB PO SCH (08:05)
[2021-02-02] MEDS: SPIRONOLACTONE 50 MG TAB PO SCH (08:05)
[2021-02-02] MEDS: metOLazone 2.5 MG TAB PO SCH (08:05)
[2021-02-02] MEDS: FUROSEMIDE 40 MG TAB PO SCH (08:05)
[2021-02-02] MEDS: SERTRALINE 100 MG TAB PO SCH (08:06)
[2021-02-02] MEDS: DOCUSATE SODIUM 100MG CAPSULE PO SCH ×2 (08:06→20:11)
[2021-02-02] MEDS: ASCORBIC ACID 250 MG TAB PO SCH (08:06)
[2021-02-02] MEDS: buPROPion **SR TABLET** (ZYBAN) 150MG PO SCH (08:06)
[2021-02-02] MEDS: POTASSIUM CHLORIDE 10 MEQ SR TABLET PO SCH ×2 (08:06→20:11)
[2021-02-02] MEDS: glipiZIDE *2.5MG* 1/2 TABLET PO SCH (08:07)
[2021-02-02] MEDS: METOPROLOL TART 12.5 MG PER 1/2 TAB PO SCH ×2 (09:00→20:20)
[2021-02-02 12:00] VITALS: BP 115/66
--- NOTE | 2021-02-02 14:25 | IPNPDOC ---
Subjective Date Seen The patient was seen on 02/02/21. Subjective Chief Complaint/HPI Mr. Quintero is a 70 year old male with idiopathic pulmonary hemosiderosis who is here for dyspnea. He was seen in the morning. This morning, he feels well. Denies chest pain or dyspnea. He is concerned with steroid tapering since he had problems coming off of steroids abruptly in the past. Will continue steroid taper. Anticipate possible discharge tomorrow after his morning dose of IV steroids. Will check orthostatic vital signs for hypotension with standing Objective Physical Examination General Exam: Positive: Alert, Cooperative Eye Exam: Negative: Sclera icteric ENT Exam: Positive: Atraumatic Neck Exam: Positive: Supple Chest Exam: Positive: Clear to auscultation, Diminished Heart Exam: Positive: Rate Normal, Irregular Rhythm Abdomen Exam: Positive: Normal bowel sounds, Soft; Negative: Tenderness Extremity Exam: Negative: Edema Neuro Exam: Positive: Normal Speech Psych Exam: Positive: Mental status NL, Mood NL Assessment /Plan Assessment Mr. Quintero is a 70 year old male with idiopathic pulmonary hemosiderosis who is here for dyspnea and hypoxia. At home, he is normally not on oxygen. CT chest demonstrates extensive ground glass opacities, but unchanged from prior. Also demonstrates fibrosis vs infiltrate in the right upper lobe. Otherwise, spoke with pulmonology about idiopathic pulmonary hemosiderosis. Recommended high dose steroids. Hypoxia resolved. Patient will need to be tapered off of high dose steroids. Will start with 250mg BID, then 250mg qD, then 125mg qD, then PO prednisone taper which can be completed at home. Plan/VTE VTE Prophylaxis Ordered?: Yes Plan 1. Acute hypoxic respiratory failure -ABG pO2 45.7 -Unlikely pneumonia, but will continue antibiotics while inpatient -Continue high dose steroids for idiopathic pulmonary hemosiderosis -Required 4L of oxygen on admission. Continue weaning oxygen as tolerated -Off oxygen, continue steroid taper 2. Idiopathic pulmonary hemosiderosis -May be causing hypoxia -No hemoptysis -Off oxygen, continue steroid taper 3. IZZY on CKD stage III -Baseline at 1.6 -Creatinine elevated at 2 -Possibly secondary to hypoxia -Continue with supplemental oxygen and supportive care -Improving 4. Chronic atrial fibrillation -Continue Xarelto and Lopressor 5. Hypertension -Continue spironolactone, metolazone, Lopressor 6. Obstructive sleep apnea -May continue CPAP 7. GERD -Continue omeprazole 8. Anemia of chronic disease -Continue iron supplementation 9. DVT ppx -On Xarelto Disposition: Patient has history of syncope from abruptly stopping steroids. Will taper steroids over the next few days. Will start with 250mg BID, then 250mg qD, then 125mg qD, then PO prednisone taper which can be completed at home. Anticipate home tomorrow after 125mg qD dose tomorrow and then Prednisone 80mg taper at home to be started on Saturday. VS, I&O, 24H, Fishbone Vital Signs/I&O Vital Signs Date Time Temp Pulse Resp B/P (MAP) Pulse Ox O2 Delivery O2 Flow Rate FiO2 02/02/21 12:00 97.1 82 18 115/66 (82) 96 Room Air 02/01/21 08:00 2.0 I&O- Last 24 Hours up to 6 AM 02/02/21 06:00 Intake Total 1310 ml Output Total 1700 ml Balance -390 ml Laboratory Data 24H LABS Laboratory Tests 2 02/02/21 05:15: Nucleated Red Blood Cells % (auto) 0.0, Anion Gap 9, Glomerular Filtration Rate 39.3L, Calcium Level 9.5 CBC/BMP Laboratory Tests 02/02/21 05:15 Microbiology Microbiology 01/30/21 Respiratory Virus Panel (PCR) ([facility]) - Final, Complete DARRION MASON DO February 02, 2021 14:25
[2021-02-02 15:53] VITALS: BP 98/53
[2021-02-02] MEDS: methylPREDNISolone 125MG 2ML VIAL IV SCH (18:38)
[2021-02-02 20:10] VITALS: BP_SYST 86; BP_SYST 87; BP_DIAS 52; BP_DIAS 58
[2021-02-02] MEDS: cefTRIAXone SOD 1 GM in D5W MINI-BAG PLUS 50 ML IV SCH (20:11)
[2021-02-02] MEDS: SIMVASTATIN 40 MG TAB PO SCH (20:12)
[2021-02-02] MEDS: RIVAROXABAN 20 MG TAB (XARELTO) PO SCH (20:12)
[2021-02-02] MEDS: TERAZOSIN 5MG CAPSULE PO SCH (20:20)
[2021-02-02 22:00] VITALS: BP 112/88
[2021-02-03] MEDS: SLF 3 ML SYR IV SCH ×3 (05:04→20:41)
[2021-02-03 05:47] VITALS: BP_SYST 100; BP_SYST 111; BP_DIAS 56; BP_DIAS 64; BP_DIAS 70
[2021-02-03 06:00] VITALS: BP 102/57
[2021-02-03 08:26] LABS: HEMATOCRIT 41.8 % (42.0-52.0); MEAN CORPUSCULAR HGB CONC 31.1 g/dl (32.0-36.5); MEAN CORPUSCULAR VOLUME 77.3 fl (80.0-96.0); PLATELET COUNT, AUTOMATED 301 10^3/uL (150-450); RED BLOOD COUNT 5.41 10^6/uL (4.30-6.10); WHITE BLOOD COUNT 11.9 10^3/uL (4.0-10.0)
[2021-02-03 08:52] LABS: CALCIUM LEVEL 9.4 MG/DL (8.8-10.2); CREATININE FOR GFR 1.87 MG/DL (0.70-1.30); GLOMERULAR FILTRATION RATE 38.1 (>42); POTASSIUM SERUM 3.5 MEQ/L (3.5-5.1)
[2021-02-03] MEDS: glipiZIDE *2.5MG* 1/2 TABLET PO SCH (08:59)
[2021-02-03] MEDS: FERROUS GLUCONATE 324 MG TAB PO SCH ×2 (09:00→20:40)
[2021-02-03] MEDS: METOPROLOL TART 12.5 MG PER 1/2 TAB PO SCH ×2 (09:00→20:44)
[2021-02-03] MEDS: DOCUSATE SODIUM 100MG CAPSULE PO SCH ×2 (09:00→20:40)
[2021-02-03] MEDS: FUROSEMIDE 40 MG TAB PO SCH (09:00)
[2021-02-03] MEDS: POTASSIUM CHLORIDE 10 MEQ SR TABLET PO SCH ×2 (09:01→20:41)
[2021-02-03] MEDS: OMEPRAZOLE 20 MG CAP PO SCH (09:01)
[2021-02-03] MEDS: SERTRALINE 100 MG TAB PO SCH (09:02)
[2021-02-03] MEDS: buPROPion **SR TABLET** (ZYBAN) 150MG PO SCH (09:02)
[2021-02-03] MEDS: FINASTERIDE 5 MG TAB PO SCH (09:03)
[2021-02-03] MEDS ORDERED: NS 500 ML IV ONE (09:30)
[2021-02-03] MEDS: ASCORBIC ACID 250 MG TAB PO SCH (10:40)
--- NOTE | 2021-02-03 10:56 | IPNPDOC ---
Subjective Date Seen The patient was seen on 02/03/21. Subjective Chief Complaint/HPI Mr. Quintero is a 70 year old male with idiopathic pulmonary hemosiderosis who is here for dyspnea. This morning, denies chest pain, dyspnea, or abdominal pain, but blood pressure was low. Denies lightheadedness or dizziness. Tells me that normally, his SBP 120. Patient is on Lasix 80mg daily, spironolactone 100mg daily, metolazone 2.5mg daily, Lopressor 12.5mg BID, and Terazosin. He has required KCL 40mEq BID. Will discontinue spironolactone and metolazone due to hypotension. Will decrease Lasix to 40mg. Will see how his potassium level respond to these changes. Will give a 500mL fluid bolus to help with his blood pressure. Objective Physical Examination General Exam: Positive: Alert, Cooperative Eye Exam: Negative: Sclera icteric ENT Exam: Positive: Atraumatic Neck Exam: Positive: Supple Chest Exam: Positive: Clear to auscultation, Diminished Heart Exam: Positive: Rate Normal, Irregular Rhythm Abdomen Exam: Positive: Normal bowel sounds, Soft; Negative: Tenderness Extremity Exam: Negative: Edema Neuro Exam: Positive: Normal Speech Psych Exam: Positive: Mental status NL, Mood NL Assessment /Plan Assessment Mr. Quintero is a 70 year old male with idiopathic pulmonary hemosiderosis who is here for dyspnea and hypoxia. At home, he is normally not on oxygen. CT chest demonstrates extensive ground glass opacities, but unchanged from prior. Also demonstrates fibrosis vs infiltrate in the right upper lobe. Otherwise, spoke with pulmonology about idiopathic pulmonary hemosiderosis. Recommended high dose steroids. Hypoxia resolved. Patient will need to be tapered off of high dose steroids. Will start with 250mg BID, then 250mg qD, then 125mg qD. Since patient will be staying one more day, plan for Solumedrol 60mg qD tomorrow morning, then home with PO prednisone taper starting at 60mg. Plan/VTE VTE Prophylaxis Ordered?: Yes Plan 1. Acute hypoxic respiratory failure (resolved) -ABG pO2 45.7 -Unlikely pneumonia, but will continue antibiotics while inpatient -Continue high dose steroids for idiopathic pulmonary hemosiderosis -Required 4L of oxygen on admission. Continue weaning oxygen as tolerated -Off oxygen, continue steroid taper 2. Idiopathic pulmonary hemosiderosis -May be causing hypoxia -No hemoptysis -Off oxygen, continue steroid taper 3. IZZY on CKD stage III -Baseline at 1.6 -Creatinine elevated at 2 -Possibly secondary to hypoxia -May also be due to diuretics -Continue with supplemental oxygen and supportive care 4. Chronic atrial fibrillation -Continue Xarelto and Lopressor 5. Hypertension -Continue Lopressor -Hold spironolactone, metolazone due to hypotension 6. Obstructive sleep apnea -May continue CPAP 7. GERD -Continue omeprazole 8. Anemia of chronic disease -Continue iron supplementation 9. Chronic heart failure with preserved ejection fraction -Echocardiogram 04/01/2020 suggested preserved EF -Not fluid overloaded -Reduced Lasix to 40mg due to hypotension 10. Hypokalemia -Most likely from high doses of Lasix -Continue KCL 40mEq BID -Recheck potassium tomorrow 11. DVT ppx -On Xarelto Disposition: Patient has history of syncope from abruptly stopping steroids. Will taper steroids over the next few days. Will start with 250mg BID, then 250mg qD, then 125mg qD, then 60mg qD, then PO prednisone taper which can be completed at home. Home pending on improvement in potassium and hypotension VS, I&O, 24H, Fishbone Vital Signs/I&O Vital Signs Date Time Temp Pulse Resp B/P (MAP) Pulse Ox O2 Delivery O2 Flow Rate FiO2 02/03/21 09:00 88 107/62 02/03/21 06:00 97.0 20 98 02/02/21 15:53 Room Air 02/01/21 08:00 2.0 I&O- Last 24 Hours up to 6 AM 02/03/21 06:00 Intake Total 1310 ml Output Total 1650 ml Balance -340 ml Laboratory Data 24H LABS Laboratory Tests 2 02/03/21 07:52: Nucleated Red Blood Cells % (auto) 0.0, Anion Gap 7L, Glomerular Filtration Rate 38.1L, Calcium Level 9.4 CBC/BMP Laboratory Tests 02/03/21 07:52 Microbiology Microbiology 01/30/21 Respiratory Virus Panel (PCR) ([facility]) - Final, Complete DARRION MASON DO February 03, 2021 10:56
[2021-02-03] MEDS: SIMETHICONE 80MG CHEW TAB PO SCH ×3 (12:35→20:42)
[2021-02-03] MEDS ORDERED: methylPREDNISolone 125MG 2ML VIAL IV ONE (13:45)
[2021-02-03 14:00] VITALS: BP 100/61
[2021-02-03] MEDS: cefTRIAXone SOD 1 GM in D5W MINI-BAG PLUS 50 ML IV SCH (20:40)
[2021-02-03] MEDS: RIVAROXABAN 15 MG TAB (XARELTO) PO SCH (20:41)
[2021-02-03] MEDS: SIMVASTATIN 40 MG TAB PO SCH (20:41)
[2021-02-03] MEDS: TERAZOSIN 5MG CAPSULE PO SCH (20:44)
[2021-02-03 22:00] VITALS: BP 126/76
[2021-02-04 06:00] VITALS: BP 114/58
[2021-02-04] MEDS: SLF 3 ML SYR IV SCH ×3 (06:25→20:27)
[2021-02-04 06:39] LABS: HEMATOCRIT 40.4 % (42.0-52.0); HEMOGLOBIN 12.9 g/dl (13.5-17.5); MEAN CORPUSCULAR HEMOGLOBIN 24.5 pg (27.0-33.0); MEAN CORPUSCULAR HGB CONC 31.9 g/dl (32.0-36.5); MEAN CORPUSCULAR VOLUME 76.8 fl (80.0-96.0); PLATELET COUNT, AUTOMATED 261 10^3/uL (150-450); RED BLOOD COUNT 5.26 10^6/uL (4.30-6.10); WHITE BLOOD COUNT 10.6 10^3/uL (4.0-10.0)
[2021-02-04 07:07] LABS: CALCIUM LEVEL 9.5 MG/DL (8.8-10.2); CREATININE FOR GFR 1.55 MG/DL (0.70-1.30); GLOMERULAR FILTRATION RATE 47.3 (>42); POTASSIUM SERUM 3.5 MEQ/L (3.5-5.1)
[2021-02-04] MEDS ORDERED: methylPREDNISolone 125MG 2ML VIAL IV ONE (09:00)
[2021-02-04] MEDS: METOPROLOL TART 12.5 MG PER 1/2 TAB PO SCH ×2 (09:00→20:21)
[2021-02-04] MEDS ORDERED: PRED10TA2 PO (09:18)
[2021-02-04] MEDS ORDERED: MELA1TAB31 PO (09:18)
[2021-02-04] MEDS ORDERED: XARE15TA PO (09:18)
[2021-02-04] MEDS ORDERED: FURO40TA2 PO (09:18)
[2021-02-04] MEDS: FUROSEMIDE 40 MG TAB PO SCH (11:01)
[2021-02-04] MEDS: buPROPion **SR TABLET** (ZYBAN) 150MG PO SCH (11:02)
[2021-02-04] MEDS: FERROUS GLUCONATE 324 MG TAB PO SCH ×2 (11:02→20:26)
[2021-02-04] MEDS: glipiZIDE *2.5MG* 1/2 TABLET PO SCH (11:03)
[2021-02-04] MEDS: SIMETHICONE 80MG CHEW TAB PO SCH ×4 (11:10→20:27)
[2021-02-04] MEDS: DOCUSATE SODIUM 100MG CAPSULE PO SCH ×2 (11:10→20:26)
[2021-02-04] MEDS: ASCORBIC ACID 250 MG TAB PO SCH (11:11)
[2021-02-04] MEDS: SERTRALINE 100 MG TAB PO SCH (11:11)
[2021-02-04] MEDS: OMEPRAZOLE 20 MG CAP PO SCH (11:11)
[2021-02-04] MEDS: FINASTERIDE 5 MG TAB PO SCH (11:11)
[2021-02-04] MEDS: POTASSIUM CHLORIDE 10 MEQ SR TABLET PO SCH ×2 (11:11→20:27)
[2021-02-04] MEDS ORDERED: NS 500 ML IV ONE ×2 (11:30→15:00)
[2021-02-04 14:02] VITALS: BP 98/64
[2021-02-04 18:14] VITALS: BP 101/66
--- NOTE | 2021-02-04 18:51 | IPNPDOC ---
Subjective Date Seen The patient was seen on 02/04/21. Subjective Chief Complaint/HPI Mr. Quintero is a 70 year old male with idiopathic pulmonary hemosiderosis who is here for dyspnea. This morning, he was not feeling well. He felt a little foggy. Denies chest pain or dyspnea. Blood pressure was low at 90/54. Adjusted terazosin to be 5mg instead of 10mg. Objective Physical Examination General Exam: Positive: Alert, Cooperative Eye Exam: Negative: Sclera icteric ENT Exam: Positive: Atraumatic Neck Exam: Positive: Supple Chest Exam: Positive: Clear to auscultation, Diminished Heart Exam: Positive: Rate Normal, Irregular Rhythm Abdomen Exam: Positive: Normal bowel sounds, Soft; Negative: Tenderness Extremity Exam: Negative: Edema Neuro Exam: Positive: Normal Speech Psych Exam: Positive: Mental status NL, Mood NL Assessment /Plan Assessment Mr. Quintero is a 70 year old male with idiopathic pulmonary hemosiderosis who is here for dyspnea and hypoxia. At home, he is normally not on oxygen. CT chest demonstrates extensive ground glass opacities, but unchanged from prior. Also demonstrates fibrosis vs infiltrate in the right upper lobe. Otherwise, spoke with pulmonology about idiopathic pulmonary hemosiderosis. Recommended high dose steroids. Hypoxia resolved. Patient will need to be tapered off of high dose steroids. Will start with 250mg BID, then 250mg qD, then 125mg qD, then 60mg qD. Patient can then be on a prednisone taper. Plan/VTE VTE Prophylaxis Ordered?: Yes Plan 1. Acute hypoxic respiratory failure (resolved) -ABG pO2 45.7 -Unlikely pneumonia, but will continue antibiotics while inpatient -Continue high dose steroids for idiopathic pulmonary hemosiderosis -Required 4L of oxygen on admission. Continue weaning oxygen as tolerated -Off oxygen, continue steroid taper 2. Idiopathic pulmonary hemosiderosis -May be causing hypoxia -No hemoptysis -Off oxygen, continue steroid taper 3. IZZY on CKD stage III -Baseline at 1.6 -Creatinine elevated at 2 -Possibly secondary to hypoxia -May also be due to diuretics -Continue with supplemental oxygen and supportive care 4. Chronic atrial fibrillation -Continue Xarelto and Lopressor 5. Hypertension -Continue Lopressor -Hold spironolactone, metolazone due to hypotension -Decrease terazosin from 10mg to 5mg due to hypotension 6. Obstructive sleep apnea -May continue CPAP 7. GERD -Continue omeprazole 8. Anemia of chronic disease -Continue iron supplementation 9. Chronic heart failure with preserved ejection fraction -Echocardiogram 04/01/2020 suggested preserved EF -Not fluid overloaded -Reduced Lasix to 40mg due to hypotension 10. Hypokalemia -Most likely from high doses of Lasix -Continue KCL 40mEq BID -Recheck potassium tomorrow 11. DVT ppx -On Xarelto Disposition: Pending improvement in blood pressure VS, I&O, 24H, Fishbone Vital Signs/I&O Vital Signs Date Time Temp Pulse Resp B/P (MAP) Pulse Ox O2 Delivery O2 Flow Rate FiO2 02/04/21 18:14 73 101/66 (78) 02/04/21 14:02 98.7 18 99 Room Air 02/01/21 08:00 2.0 I&O- Last 24 Hours up to 6 AM 02/04/21 06:00 Intake Total 2090 ml Output Total 1925 ml Balance 165 ml Laboratory Data 24H LABS Laboratory Tests 2 02/04/21 06:23: Nucleated Red Blood Cells % (auto) 0.0, Anion Gap 6L, Glomerular Filtration Rate 47.3, Calcium Level 9.5 CBC/BMP Laboratory Tests 02/04/21 06:23 Microbiology Microbiology 01/30/21 Respiratory Virus Panel (PCR) (JULIEN) - Final, Complete DARRION MASON DO February 04, 2021 18:51
[2021-02-04] MEDS: RIVAROXABAN 15 MG TAB (XARELTO) PO SCH (20:27)
[2021-02-04] MEDS: SIMVASTATIN 40 MG TAB PO SCH (20:27)
[2021-02-04] MEDS ORDERED: TERAZOSIN 5MG CAPSULE PO SCH (21:00)
[2021-02-04] MEDS ORDERED: NYSTATIN 100,000 UNITS/GM TOPICAL PWD 15 GM TOP SCH (21:00)
[2021-02-04 22:00] VITALS: BP 114/69
[2021-02-05] MEDS: SLF 3 ML SYR IV SCH (05:36)
[2021-02-05 06:00] VITALS: BP 105/55
[2021-02-05 06:40] LABS: HEMATOCRIT 37.3 % (42.0-52.0); HEMOGLOBIN 11.6 g/dl (13.5-17.5); MEAN CORPUSCULAR HEMOGLOBIN 24.4 pg (27.0-33.0); MEAN CORPUSCULAR HGB CONC 31.1 g/dl (32.0-36.5); MEAN CORPUSCULAR VOLUME 78.5 fl (80.0-96.0); PLATELET COUNT, AUTOMATED 251 10^3/uL (150-450); RED BLOOD COUNT 4.75 10^6/uL (4.30-6.10); WHITE BLOOD COUNT 11.3 10^3/uL (4.0-10.0)
[2021-02-05 07:04] LABS: CALCIUM LEVEL 8.4 MG/DL (8.8-10.2); CREATININE FOR GFR 1.57 MG/DL (0.70-1.30); GLOMERULAR FILTRATION RATE 46.6 (>42); POTASSIUM SERUM 4.2 MEQ/L (3.5-5.1)
[2021-02-05 09:00] VITALS: BP 105/69
[2021-02-05] MEDS: FUROSEMIDE 40 MG TAB PO SCH (09:00)
[2021-02-05] MEDS ORDERED: methylPREDNISolone 125MG 2ML VIAL IV ONE (09:00)
[2021-02-05] MEDS: METOPROLOL TART 12.5 MG PER 1/2 TAB PO SCH (09:00)
[2021-02-05] MEDS: buPROPion **SR TABLET** (ZYBAN) 150MG PO SCH (09:08)
[2021-02-05] MEDS: SIMETHICONE 80MG CHEW TAB PO SCH ×2 (09:08→12:45)
[2021-02-05] MEDS: glipiZIDE *2.5MG* 1/2 TABLET PO SCH (09:09)
[2021-02-05] MEDS: FINASTERIDE 5 MG TAB PO SCH (09:09)
[2021-02-05] MEDS: SERTRALINE 100 MG TAB PO SCH (09:09)
[2021-02-05] MEDS: ASCORBIC ACID 250 MG TAB PO SCH (09:09)
[2021-02-05] MEDS: DOCUSATE SODIUM 100MG CAPSULE PO SCH (09:09)
[2021-02-05] MEDS: FERROUS GLUCONATE 324 MG TAB PO SCH (09:09)
[2021-02-05] MEDS: POTASSIUM CHLORIDE 10 MEQ SR TABLET PO SCH (09:10)
[2021-02-05] MEDS: OMEPRAZOLE 20 MG CAP PO SCH (09:10)
[2021-02-05] MEDS ORDERED: POTA20TA6 PO (11:50)
[2021-02-05] MEDS ORDERED: TERA5CAP3 PO (11:50)
--- NOTE | 2021-02-05 22:44 | DS.PDOC ---
Discharge Summary General Date of Admission January 30, 2021 at 18:14 Date of Discharge February 05, 2021 Discharge Summary PROCEDURES PERFORMED DURING STAY: [None]. ADMITTING DIAGNOSES: 1. . DISCHARGE DIAGNOSES: 1. . COMPLICATIONS/CHIEF COMPLAINT: Idiopathic Pulmonary Hemosiderosis. HISTORY OF PRESENT ILLNESS: . HOSPITAL COURSE: . DISCHARGE MEDICATIONS: Please see below. ALLERGIES: Please see below. PHYSICAL EXAMINATION ON DISCHARGE: VITAL SIGNS: Please see below. GENERAL: HEENT: NECK: CARDIOVASCULAR EXAMINATION: RESPIRATORY EXAMINATION: ABDOMINAL EXAMINATION: EXTREMITIES: SKIN: NEUROLOGICAL EXAMINATION: PSYCHIATRIC EXAMINATION: LABORATORY DATA: Please see below. IMAGING: PROGNOSIS: ACTIVITY: [As tolerated]. DIET: DISCHARGE PLAN: DISPOSITION: Home, Self-Care. DISCHARGE INSTRUCTIONS: 1. . ITEMS TO FOLLOWUP ON ON OUTPATIENT: 1. . DISCHARGE CONDITION: [Stable]. TIME SPENT ON DISCHARGE: Greater than minutes. Vital Signs/I&Os Vital Signs Date Time Temp Pulse Resp B/P (MAP) Pulse Ox O2 Delivery O2 Flow Rate FiO2 02/05/21 09:00 74 105/69 02/05/21 06:00 97.1 18 99 Room Air 02/01/21 08:00 2.0 I&O- Last 24 Hours up to 6 AM 02/05/21 06:00 Intake Total 2625 ml Output Total 1575 ml Balance 1050 ml Laboratory Data Labs 24H Laboratory Tests 2 02/05/21 06:17: Nucleated Red Blood Cells % (auto) 0.0, Anion Gap 5L, Glomerular Filtration Rate 46.6, Calcium Level 8.4L CBC/BMP Laboratory Tests 02/05/21 06:17 Microbiology Microbiology 01/30/21 Respiratory Virus Panel (PCR) (JULIEN) - Final, Complete Discharge Medications Scheduled Ascorbic Acid (Vitamin C) 250 Mg Tablet, 250 MG PO DAILY, (Reported) Bupropion Hcl (Bupropion HCl Sr) 150 Mg Tab, 150 MG PO DAILY, (Reported) Cholecalciferol (Vitamin D3) (Vitamin D3) 25 Mcg Tablet, 25 MCG PO DAILY, (Reported) Docusate Sodium (Docusate Sodium) 100 Mg Cap, 200 MG PO BID, (Reported) Ferrous Gluconate (Ferrous Gluconate) 324 Mg Tab, 648 MG PO BID, (Reported) Finasteride (Finasteride) 5 Mg Tab, 5 MG PO DAILY, (Reported) Furosemide (Furosemide) 40 Mg Tablet, 40 MG PO DAILY Glipizide (Glipizide) 5 Mg Tab, 2.5 MG PO DAILY, (Reported) TAKES BEFORE BREAKFAST Melatonin (Melatonin) 1 Mg Tablet, 1 MG PO QHS Metoprolol Tartrate (Metoprolol Tartrate) 25 Mg Tab, 12.5 MG PO BID, (Reported) Omeprazole (Omeprazole) 20 Mg Tab, 40 MG PO DAILY, (Reported) Potassium Chloride (Potassium Chloride) 20 Meq Tab.er.prt, 1 TAB PO BID Prednisone (Prednisone) 10 Mg Tablet, 10 MG PO TAPER Take 4tab for 1day, then 3tab for 1day, then 2tab for 1day, then 1tab for 1day, then stop Rivaroxaban (Xarelto) 15 Mg Tablet, 15 MG PO QHS Sertraline Hcl (Zoloft) 100 Mg Tablet, 200 MG PO DAILY, (Reported) Simvastatin (Zocor) 80 Mg Tablet, 40 MG PO QHS, (Reported) Terazosin HCl (Terazosin HCl) 5 Mg Capsule, 5 MG PO QHS Scheduled PRN Cetirizine HCl (Cetirizine HCl) 10 Mg Tablet, 10 MG PO DAILY PRN for ALLERGIES, (Reported) Clotrimazole (Clotrimazole) 1% 30GM Cream..g., 1 DOSE TOP BID PRN for RASH, (Reported) APPLIES TO GROIN AND LEGS NEEDED FOR YEAST INFECTION Simethicone (Simethicone) 80 Mg Tab.chew, 160 MG PO ACHS PRN for GAS PAIN, (Reported) Allergies Coded Allergies: amlodipine (Verified Allergy, Unknown, 04/27/19) atenolol (Verified Allergy, Unknown, 04/27/19) albuterol (Verified Adverse Reaction, Mild, increased HR, 04/01/20) DARRION MASON DO February 05, 2021 22:44
== END 2021-02-05 15:29 | disposition home health service (06) | DRG 642 ==
LOC: M ED 14:57 → M ED INP 18:14 → M PCU 21:38 → M MSPAV 02-02 17:23
PROVIDERS: ADMIT Internal Medicine; ATTEND Internal Medicine
DX: E83.10 Disorder of iron metabolism, unspecified (principal); J96.01 Acute respiratory failure with hypoxia; J84.03 Idiopathic pulmonary hemosiderosis; I48.20 Chronic atrial fibrillation, unspecified; N17.9 Acute kidney failure, unspecified; I50.32 Chronic diastolic (congestive) heart failure; I13.0 Hypertensive heart and chronic kidney disease with heart failure and stage 1 through stage 4 chronic kidney disease, or unspecified chronic kidney disease; N18.30 Chronic kidney disease, stage 3 unspecified; G47.33 Obstructive sleep apnea (adult) (pediatric); Z66 Do not resuscitate; K44.9 Diaphragmatic hernia without obstruction or gangrene; K21.9 Gastro-esophageal reflux disease without esophagitis; D63.1 Anemia in chronic kidney disease; F43.10 Post-traumatic stress disorder, unspecified; E87.6 Hypokalemia; Z79.01 Long term (current) use of anticoagulants; Z79.82 Long term (current) use of aspirin; Z79.899 Other long term (current) drug therapy; Z88.8 Allergy status to other drugs, medicaments and biological substances

== ENCOUNTER 2021-02-13 12:54 | Inpatient (IN) | payer OTHER ==
[2021-02-13] VITALS (12 sets, daily range): BP systolic 85–105; BP diastolic 56–70
[~2021-02-13] VITALS: Ht 172.7 cm; Wt 101.8 kg
[~2021-02-13 12:54] MED LIST changes: +MELA1TAB31 PO; +POTA20TA6 PO; +TERA5CAP3 PO; +XARE15TA PO; +ZOLO100T PO
[2021-02-13] MEDS ORDERED: POTA10TA17 PO (16:38)
[2021-02-13] MEDS ORDERED: FURO40TA2 PO (16:38)
[2021-02-13] MEDS ORDERED: TERA5CAP3 PO (16:38)
[2021-02-13] MEDS ORDERED: XARE15TA PO (16:38)
--- NOTE | 2021-02-13 16:40 | HPEPDOC ---
[facility] Medical History & Physical Date of Admission February 13, 2021 Date of Service: February 13, 2021 History and Physical CHIEF COMPLAINT: shortness of breath HISTORY OF PRESENT ILLNESS: 70 year old male originally presented to [facility] for several day history of worsening shortness of breath. He also notes worsening dry cough. He also described excess flatulence. He denied chest pain, dizziness, abdominal pain, nausea, vomiting or diarrhea. Denies any sick contacts or recent travel. Transferred to [facility] for hypotension/was on pressers, and hypoxic respiratory failure. On examination at [facility], patient only complaints of shortness of breath, and requesting for something to drink. CT chest at [facility] showed possible atypical pneumonia. Respiratory panel was negative. BNP 3200, WBC 23, creatinine 1.68 He was recently admitted at [facility] for similar symptoms, treated with high dose steroids and antibiotics. PAST MEDICAL HISTORY: #episodes of hypoxemic respiratory failure #chronic Idiopathic pulmonary hemosiderosis #Chronic kidney disease stage III with a baseline creatinine of approximately 1.6-1.7 #Hypertension #Chronic atrial fibrillation #Obstructive sleep apnea (on CPAP) #Hiatal hernia #GERD #Anemia of chronic disease #PTSD #History of manic depression # Hypokalemia # HFpEF ALLERGIES: Please see below. REVIEW OF SYSTEMS: Negative except as per HPI. HOME MEDICATIONS: Please see below. PHYSICAL EXAMINATION: VITAL SIGNS: See below General: NAD, sitting comfortably at edge of bed HEENT: NC/AT, EOMI Lungs: CTA B/L Heart: +S1S2, irregular Abd: obese, NT, +BS Ext: peripheral edema LABORATORY DATA: See below. MICROBIOLOGY: Please see below. A/P: 70-year-old male sent from [facility] for acute hypoxic respiratory failure and hypotension. Patient arrived on pressor support, which was quickly weaned off. On arrival, he complains of shortness of breath and dry cough. #acute hypoxic respiratory failure - appears to be possibly exacerbation of his idiopathic pulmonary hemosiderosis +/- decompensated heart failure # Idiopathic pulmonary hemosiderosis - supplemental oxygen - high dose steroids - IV abx - sputum culture/gram stain - IS/acapella # HFpEF - check BNP - outside facility elevated over 3000 - check card markers - no crackles noted - repeat echo - last echo March 2020, severe biatrial enlargement, preserved ejection fraction - previously on lasix 80 daily, last discharged on 40 daily - resume lasix tomorrow at 60 daily, pending blood pressures # CKD stage 3 - appears at baseline from outside facility labs # HTN - home betablocker with hold parameters - was on pressers on arrival #chronic hypokalemia - holding home potassium (10 BID) - can follow and replete as needed while inpatient # Chronic atrial fibrillation - rate controlled, a/c with xarelto #BPH - terazosin, proscar #psych - continue wellbutrin, zoloft #DM - carb consistent diet - hold glipizide - sliding scale insulin # LAKESHIA on CPAP #DLP - zocor # GERD - prilosec # Anemia of chronic disease Home Medications Scheduled Ascorbic Acid (Vitamin C) 250 Mg Tablet, 250 MG PO DAILY Bupropion Hcl (Bupropion HCl Sr) 150 Mg Tab, 150 MG PO DAILY Cholecalciferol (Vitamin D3) (Vitamin D3) 25 Mcg Tablet, 25 MCG PO DAILY Docusate Sodium (Docusate Sodium) 100 Mg Cap, 200 MG PO BID Ferrous Gluconate (Ferrous Gluconate) 324 Mg Tab, 648 MG PO BID Finasteride (Finasteride) 5 Mg Tab, 5 MG PO DAILY Furosemide (Furosemide) 40 Mg Tablet, 40 MG PO DAILY Glipizide (Glipizide) 5 Mg Tab, 2.5 MG PO DAILY TAKES BEFORE BREAKFAST Melatonin (Melatonin) 5 Mg Tablet, 5 MG PO QHS Metoprolol Tartrate (Metoprolol Tartrate) 25 Mg Tab, 12.5 MG PO BID Omeprazole (Omeprazole) 20 Mg Tab, 40 MG PO DAILY Potassium Chloride (Potassium Chloride) 10 Meq Tab.er.prt, 10 MEQ PO BID Rivaroxaban (Xarelto) 15 Mg Tablet, 15 MG PO QHS Sertraline Hcl (Zoloft) 100 Mg Tablet, 200 MG PO DAILY Simvastatin (Zocor) 80 Mg Tablet, 40 MG PO QHS Terazosin HCl (Terazosin HCl) 5 Mg Capsule, 5 MG PO QHS Scheduled PRN Cetirizine HCl (Cetirizine HCl) 10 Mg Tablet, 10 MG PO DAILY PRN for ALLERGIES Clotrimazole (Clotrimazole) 1% 30GM Cream..g., 1 DOSE TOP BID PRN for RASH APPLIES TO GROIN AND LEGS NEEDED FOR YEAST INFECTION Simethicone (Simethicone) 80 Mg Tab.chew, 160 MG PO ACHS PRN for GAS PAIN Allergies Coded Allergies: amlodipine (Verified Allergy, Unknown, 04/27/19) atenolol (Verified Allergy, Unknown, 04/27/19) albuterol (Verified Adverse Reaction, Mild, increased HR, 04/01/20) A-FIB/CHADSVASC A-FIB History Current/History of A-Fib/PAF?: Yes SITA TONG MD February 13, 2021 16:40
[2021-02-13] MEDS ORDERED: MELA5TAB36 PO (16:41)
[2021-02-13] MEDS ORDERED: DEXTROSE 50% 50 ML SYRINGE IV PRN (17:10)
[2021-02-13] MEDS ORDERED: GLUCOSE 4GM CHEW TABLET PO PRN (17:10)
[2021-02-13] MEDS ORDERED: CLOTRIMAZOLE 1% TOPICAL CREAM 30GM TOP PRN (17:10)
[2021-02-13] MEDS ORDERED: GLUCAGON INJ 1MG VIAL SC PRN (17:10)
[2021-02-13] MEDS ORDERED: SIMETHICONE 80MG CHEW TAB PO PRN (17:10)
[2021-02-13] MEDS ORDERED: CETIRIZINE (ZyrTEC) 10 MG TAB PO PRN (17:10)
[2021-02-13 17:14] LABS: ABG BASE EXCESS 0.1 (-2.0-2.0); ABG HCO3 21.7 MEQ/L (22.0-26.0); ABG PARTIAL PRESSURE CO2 26.5 mmHg (35.0-45.0); ABG PARTIAL PRESSURE O2 65.5 mmHg (75.0-100.0); ABG STANDARD HCO3 24.5 MEQ/L (22.0-26.0); ABG TOTAL CO2 22.6 MEQ/L (23.0-31.0); ABG pH (ARTERIAL) 7.532 UNITS (7.350-7.450)
[2021-02-13 17:23] LABS: BASO % 0.2 % (0.0-1.0); EOS # 0.1 10^3/uL (0.0-0.5); EOS % 0.4 % (0.0-3.0); HEMOGLOBIN 10.8 g/dl (13.5-17.5); LYMPH % 7.9 % (24.0-44.0); MEAN CORPUSCULAR HEMOGLOBIN 24.5 pg (27.0-33.0); MEAN CORPUSCULAR HGB CONC 30.9 g/dl (32.0-36.5); MEAN CORPUSCULAR VOLUME 79.5 fl (80.0-96.0); MONO # 0.7 10^3/uL (0.0-0.8); MONO % 5.4 % (2.0-8.0); NEUTROPHILS # 10.6 10^3/uL (1.5-8.5); NEUTROPHILS % 85.3 % (36.0-66.0); PLATELET COUNT, AUTOMATED 181 10^3/uL (150-450); WHITE BLOOD COUNT 12.4 10^3/uL (4.0-10.0)
[2021-02-13] MEDS: HumaLOG INSULIN (NovoLOG) PER UNIT SC SCH ×2 (17:30→21:00)
[2021-02-13 17:49] LABS: ALBUMIN 2.5 GM/DL (3.2-5.2); ALT/SGPT 10 U/L (12-78); BILIRUBIN,TOTAL 1.2 MG/DL (0.2-1.0); BLOOD UREA NITROGEN 24 MG/DL (7-18); CALCIUM LEVEL 7.8 MG/DL (8.8-10.2); CARBON DIOXIDE LEVEL 25 MEQ/L (21-32); CHLORIDE LEVEL 108 MEQ/L (98-107); CK-MB VALUE MASS < 1.0 NG/ML (<3.6); CPK CREATINE PHOSPHOKINASE 22 U/L (39-308); CREATININE FOR GFR 1.56 MG/DL (0.70-1.30); GLOMERULAR FILTRATION RATE 46.9 (>42); GLUCOSE, FASTING 103 MG/DL (70-100); MB/CK RELATIVE INDEX 4.55 (< OR =4); NT-PRO BNP 3243 PG/ML (<125); SODIUM LEVEL 142 MEQ/L (136-145); TOTAL PROTEIN 5.3 GM/DL (6.4-8.2); TROPONIN I < 0.02 NG/ML (< 0.10)
[2021-02-13] MEDS: OMEPRAZOLE 20 MG CAP PO SCH (17:58)
[2021-02-13] MEDS: FINASTERIDE 5 MG TAB PO SCH (17:58)
[2021-02-13] MEDS: buPROPion **SR TABLET** (ZYBAN) 150MG PO SCH (17:58)
[2021-02-13] MEDS: methylPREDNISolone 125MG 2ML VIAL IV SCH ×2 (17:58→23:09)
[2021-02-13] MEDS: SERTRALINE 100 MG TAB PO SCH (17:58)
[2021-02-13] MEDS: ASCORBIC ACID 250 MG TAB PO SCH (17:59)
[2021-02-13 19:10] LABS: INR 1.52; PROTHROMBIN TIME 18.6 SECONDS (12.5-14.3)
[2021-02-13 19:11] LABS: PARTIAL THROMBOPLASTIN TIME 40.5 SECONDS (24.2-38.5)
[2021-02-13] MEDS ORDERED: METOPROLOL TART 12.5 MG PER 1/2 TAB PO SCH (21:00)
[2021-02-13] MEDS: TERAZOSIN 5MG CAPSULE PO SCH (21:00)
[2021-02-13] MEDS ORDERED: POTASSIUM CHLORIDE 10 MEQ SR TABLET PO SCH (21:00)
[2021-02-13] MEDS: RIVAROXABAN 15 MG TAB (XARELTO) PO SCH (21:35)
[2021-02-13] MEDS: DOCUSATE SODIUM 100MG CAPSULE PO SCH (21:35)
[2021-02-13] MEDS: SIMVASTATIN 40 MG TAB PO SCH (21:37)
[2021-02-13] MEDS: FERROUS GLUCONATE 324 MG TAB PO SCH (21:37)
[2021-02-14] VITALS (28 sets, daily range): BP systolic 77–108; BP diastolic 43–68
[2021-02-14] MEDS: methylPREDNISolone 125MG 2ML VIAL IV SCH (04:27)
[2021-02-14 05:14] LABS: HEMATOCRIT 35.6 % (42.0-52.0); HEMOGLOBIN 10.6 g/dl (13.5-17.5); MEAN CORPUSCULAR HEMOGLOBIN 24.8 pg (27.0-33.0); MEAN CORPUSCULAR HGB CONC 29.8 g/dl (32.0-36.5); MEAN CORPUSCULAR VOLUME 83.2 fl (80.0-96.0); PLATELET COUNT, AUTOMATED 129 10^3/uL (150-450); RED BLOOD COUNT 4.28 10^6/uL (4.30-6.10); WHITE BLOOD COUNT 6.7 10^3/uL (4.0-10.0)
[2021-02-14 05:34] LABS: CALCIUM LEVEL 8.3 MG/DL (8.8-10.2); CREATININE FOR GFR 1.56 MG/DL (0.70-1.30); GLOMERULAR FILTRATION RATE 46.9 (>42); POTASSIUM SERUM 5.2 MEQ/L (3.5-5.1)
[2021-02-14] MEDS: HumaLOG INSULIN (NovoLOG) PER UNIT SC SCH ×4 (07:30→20:50)
[2021-02-14] MEDS: glipiZIDE *2.5MG* 1/2 TABLET PO SCH (08:09)
[2021-02-14] MEDS ORDERED: FUROSEMIDE 40 MG TAB PO SCH (09:00)
[2021-02-14] MEDS: OMEPRAZOLE 20 MG CAP PO SCH (09:54)
[2021-02-14] MEDS: FINASTERIDE 5 MG TAB PO SCH (09:54)
[2021-02-14] MEDS: ASCORBIC ACID 250 MG TAB PO SCH (09:54)
[2021-02-14] MEDS: FERROUS GLUCONATE 324 MG TAB PO SCH ×2 (09:54→20:50)
[2021-02-14] MEDS: buPROPion **SR TABLET** (ZYBAN) 150MG PO SCH (09:55)
[2021-02-14] MEDS: DOCUSATE SODIUM 100MG CAPSULE PO SCH ×2 (09:55→20:49)
[2021-02-14] MEDS: SERTRALINE 100 MG TAB PO SCH (09:55)
[2021-02-14] MEDS: FUROSEMIDE 40MG/4ML VIAL (J1940) IV SCH (09:55)
[2021-02-14] MEDS: cefTRIAXone SOD 1 GM in D5W MINI-BAG PLUS 50 ML IV SCH (09:56)
[2021-02-14] MEDS ORDERED: HYDROCORTISONE 100 MG/2 ML VIAL (J1720 PER 1) IV SCH (12:00)
--- NOTE | 2021-02-14 12:19 | CR ---
CONSULTATION DATE: 02/14/2021 CHIEF COMPLAINT: Shortness of breath. HISTORY OF PRESENT ILLNESS: Mr. 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 The patient had recently been admitted earlier this month with similar complaint of dyspnea. He was also noted during his previous admission to be hypoxic and had required nasal cannula oxygen supplementation. The patient was treated for possible flare of possible pulmonary hemosiderosis with very high doses of steroids with Solu-Medrol and discharged with an additional steroid taper. He was also treated with antibiotics at that time. The patient had denied noticing any episodes of hemoptysis previously and he also continues to deny any hemoptysis currently. He did have some complaints of increasing cough, which was nonproductive, as well as his dyspnea in the past day or two. The patient is not on nasal cannula oxygen chronically at home. He does have CPAP, which he uses at night. When the patient was in [facility], he was noted to be hypoxic and was on a Venturi mask initially. He was also hypotensive and had required low doses of Levophed for blood pressure support via peripheral IV. The patient had completed his prednisone just a few days prior to his worsening dyspnea. He was also noted at his last admission to have more borderline blood pressures. His diuretics were therefore significantly decreased. He had previously been on Aldactone, as well as Lasix 40 mg b.i.d. and metolazone for diuretics. At his last discharge, he was on only 40 mg of Lasix and his Spironolactone and metolazone were discontinued. He does feel since his discharge from the hospital that he has also had episodes where he noticed increasing lower extremity edema. The patient does notice as well with the decrease in his diuretics that he has been urinating less than he previously was. He otherwise denied any chest pain. He has not noticed any fevers or chills. The patient does report that he has not been following up with his pulmonary physician in [place] for the past year or two, given his concern with COVID-19. 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 Upon arrival to [facility] ICU, the patient was initially on the nonrebreather. He was able to be weaned down to nasal cannula oxygen supplementation at 6 L/min overnight and this morning was down to 4 L/min a times. He was also able to be weaned off of the Levophed overnight and had maintained his blood pressures for the most part except for one episode with lower blood pressure earlier this morning. PAST MEDICAL AND SURGICAL HISTORY: 1. 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 2. CKD. 3. Hypertension. 4. Atrial fibrillation on anticoagulation. 5. LAKESHIA on CPAP. 6. Hiatal hernia. 7. GERD. 8. Anemia of chronic disease. 9. PTSD. 10. Manic depression. 11. Heart failure with preserved EF. 12. Pulmonary hypertension. SOCIAL HISTORY: The patient is a former smoker, he was a pack a day for 12 years and quit more than 35 years ago. Denies any alcohol use or other drug use. FAMILY HISTORY: Mother with history of pancreatic cancer. Father with history of CAD. Sister with history of ovarian cancer. HOME MEDICATIONS: 1. Vitamin C. 2. Bupropion. 3. Vitamin D. 4. Ferrous gluconate. 5. Finasteride. 6. Furosemide 40 mg daily. 7. Glipizide. 8. Melatonin. 9. Metoprolol. 10. Omeprazole. 11. Potassium chloride. 12. Xarelto. 13. Zoloft. 14. Simvastatin. 15. Terazosin. 16. Cetirizine p.r.n. 17. Clotrimazole. 18. Simethicone. ALLERGIES: AMLODIPINE, ATENOLOL, AND ALBUTEROL. PHYSICAL EXAMINATION: VITAL SIGNS: Temperature 97.2, pulse 75, respirations 20, blood pressure 92/59, O2 saturation 99% on 6 liters nasal cannula. INTAKE AND OUTPUT: In 360, out 550. GENERAL: The patient is an overweight male who is lying in bed and appears comfortable. He is awake, alert, and oriented x3. He is speaking in complete sentences and is not in any respiratory distress and is not using any accessory muscles for respiration. HEENT: Normocephalic, atraumatic. Pupils reactive to light bilaterally. NECK: Supple. Trachea is midline. There is positive JVD. CARDIAC: Regularly irregular rate and rhythm with normal S1, S2 and a possible faint systolic murmur. PULMONARY: Good air entry bilaterally with no significant wheezing or rhonchi. There are very minimal crackles at the bases. ABDOMEN: Obese, soft, nontender, and nondistended. EXTREMITIES: There is no significant lower extremity edema noted bilaterally. LABORATORY DATA: WBC 6.7, hemoglobin 10.6, platelets 129,000. Chemistries with sodium 136, potassium 5.2, chloride 110, bicarb 20, BUN 32, creatinine 1.56, glucose 187, calcium 8.3. BNP is 3293; prior BNP earlier this month was 822. Albumin is 2.5. ABG with pH 7.532, pCO2 of 26.5, pO2 of 65.5. IMAGING DATA: Prior imaging from 01/30/2021, showed evidence of some intralobular septal thickening with areas of ground-glass opacities bilaterally in the upper and lower lobes. There were a few scattered cysts or bullae noted. There is some apical scarring, as well as a band of scarring in the right upper lobe periphery and some areas of pleural thickening and scarring in the left upper lobe and to a lesser degree in the left lower lobe. There is no significant honeycombing noted. ASSESSMENT AND PLAN: Mr. 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 The patient was recently admitted in January with similar complaints and he was treated with a high dose of steroids for a possible flare of his idiopathic pulmonary hemosiderosis. The patient was noted on his previous admission to have evidence of borderline blood pressure and hypotension at times and so his diuretic dose was significantly decreased. He had previously been on Lasix 80 mg daily, as well as metolazone and Spironolactone. On discharge, he was only on Lasix 40 mg daily with his metolazone and Aldactone discontinued. Of note, the patient has not been following up with [facility] where he was previously seen at the [place]. He did have an episode last year as well where he was treated with steroids and he has frequently been on steroids with his possible diagnosis of interstitial lung disease, as well as being on chronic steroids in the past. There has been some dispute about his diagnosis about idiopathic pulmonary hemosiderosis. The patient initially appeared to have evidence of bland alveolar hemorrhage in 2004, with transbronchial biopsies performed at that time. The biopsies had not shown evidence of capillaritis and the pathologist did report old and new hemorrhage with some hemosiderin laden macrophages. His ANCA panel and ant-GBM panel were negative at that time. Complicating his issues, particularly with his hemorrhage, has been the fact that he does have evidence of decompensated heart failure during many of his admissions, as well as being on anticoagulation both of which can contribute to a bland alveolar hemorrhage presentation. He has had previous admission where his symptoms resolve with diuretics, although more recently he appears to have some degree of steroid responsiveness as well. The patient's acute hypoxemic respiratory failure during this admission may be in the setting of decompensated heart failure particularly with increased BNP from his baseline, as well as with the decrease in his diuretics. Suspect he does have more pulmonary edema presentation rather than significant lower extremity edema presentation, although he did report some increased lower extremity edema as an outpatient. The patient also has not had any evidence of hemoptysis, which would generally be seen more with exacerbations of his idiopathic pulmonary hemosiderosis as that presents with more alveolar hemorrhage syndrome. With this episodes of hypotension, however, suspect he does have a degree of some adrenal insufficiency perhaps related to his frequent steroid usage and previous chronic steroid use. As there is also a possibility still for a flare-up of his interstitial lung disease, would continue him with steroids, but would change him from the high dose Solu-Medrol to high dose hydrocortisone with more of a mineralcorticoid affect. Would also start him on increased diuretics with IV Lasix at 40 mg IV daily. Would follow-up the results of his echo and appreciate cardiology consult and recommendations. - Will continue him with nasal cannula oxygen supplementation and wean down as tolerated to maintain O2 sat above 90%. He can continue with his CPAP at night with an O2 bleed-in as well to maintain his O2 sats above 90%. - Will repeat a chest x-ray in the a.m. If the patient does have a more rapid resolution on his ground-glass opacities with the current management, then would suspect more of a pulmonary edema or fluid component as with idiopathic pulmonary hemosiderosis, imaging usually takes around four to six weeks before noticeable improvement. - Will also start patient on Bactrim for PCP prophylaxis given his frequent steroid use. If he does have idiopathic pulmonary hemosiderosis, then he would likely need chronic steroids to prevent flare of his interstitial lung disease. He would benefit as well from routine pulmonary follow-up and continued evaluation. Can continue with broad-spectrum antibiotics for now for possible infectious process with monitoring and trending his procalcitonin. Would also be helpful to get the results and notes from his most [facility]. Gastrointestinal (GI) prophylaxis on omeprazole. Deep vein thrombosis (DVT) prophylaxis on Xarelto for anticoagulation. Can continue Xarelto for now; although if he is having a flare of his idiopathic pulmonary hemosiderosis and alveolar hemorrhage causing the ground-glass opacities, then would likely need to hold his anticoagulation. If the ground-glass opacities noted on his prior imaging is more in the setting of pulmonary edema and he is not having evidence of hemoptysis or worsening anemia, can continue with his anticoagulation for now with close monitoring. Code status: DO NOT RESUSCITATE (DNR) / DO NOT INTUBATE (DNI). MTDD
[2021-02-14] MEDS: BACTRIM 160MG/800MG DS TAB PO SCH ×2 (12:42→20:50)
[2021-02-14] MEDS: HYDROCORTISONE 100 MG/2 ML VIAL (J1720 PER 1) IV SCH ×2 (12:43→20:49)
--- NOTE | 2021-02-14 13:33 | IPNPDOC ---
Date Seen The patient was seen on 02/14/21. Progress Note SUBJECTIVE: Sitting up in bed, without complaints. Pulmonary consulted. Echo ordered. Denies chest pain, n/v/d, increased SOB, fevers or chills. OBJECTIVE: PHYSICAL EXAMINATION: VITAL SIGNS: See below General: NAD, sitting comfortably at edge of bed in no resp distress. HEENT: Normocephalic, atraumatic. Pupils reactive to light bilaterally. NECK: + JVD, Supple. Trachea is midline. CARDIAC: Regularly irregular rate, systolic murmur, S1S2 +, no rubs or gallops, no lower ext edema PULMONARY: crackles in b/l lower lung bases, no rhonchi, wheezing ABDOMEN: Obese, soft, nontender, and nondistended. EXTREMITIES: No cyanosis, clubbing NEURO: CN 2-12 intact, no sensory or motor deficits, no focal deficits. LABORATORY DATA: See below. MICROBIOLOGY: Please see below. ASSESSMENT: 70-year-old male sent from [facility] for acute hypoxic respiratory failure and hypotension. Patient arrived on pressor support, which was quickly weaned off. 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 PNA -Procalcitonin > 0.5 -WBC wnl, afebrile but with incr O2 demand, RR 21-26 -C/w ceftriaxone, bactrim to cover PCP PNA -Sputum cx pending Hypotension poss 2/2 to adrenal insufficiency -has received many doses of high dose steroids from treatment of ILD over past several hospitalizations -No longer on pressor support -Hx of HTN -On hydrocortisone IV Q8Hrs Acute hyperkalemia likely 2/2 to potassium supplement -D/c home potassium -Replace daily PRN -Daily labs CKD stage 3 -Cr at baseline -Daily labs Chronic atrial fibrillation -Currently rate controlled, A/C with xarelto BPH -C/w terazosin, proscar Depression - continue wellbutrin, zoloft DM -BS stable 170-200 this AM -Carb consistent diet -Patient is hesitant to stop glipizide and will only do so if modifying the sliding scale. -For now keep glipizide, monitor for s/s of hypoglycemia, risks discussed with him -ISS LAKESHIA on CPAP DLP - zocor GERD - prilosec Anemia of chronic disease -Stable -Daily CBC DVT px -xarelto DISPOSITION: Admitted in ICU currently, pulmonary following. Plan is PT/OT, discharge home when medically improved. TOTAL AMOUNT OF TIME SPENT CARING FOR PATIENT IN ICU: 30 mins VS, I&O, 24H, Fishbone Vital Signs/I&O Vital Signs Date Time Temp Pulse Resp B/P (MAP) Pulse Ox O2 Delivery O2 Flow Rate FiO2 02/14/21 10:30 89 93/61 (72) 93 02/14/21 08:00 97.3 18 Nasal Cannula 6.0 I&O- Last 24 Hours up to 6 AM 02/14/21 06:00 Intake Total 480 ml Output Total 700 ml Balance -220 ml Laboratory Data 24H LABS Laboratory Tests 2 02/13/21 16:59: Immature Granulocyte % (Auto) 0.8, Neutrophils (%) (Auto) 85.3H, Lymphocytes (%) (Auto) 7.9L, Monocytes (%) (Auto) 5.4, Eosinophils (%) (Auto) 0.4, Basophils (%) (Auto) 0.2, Neutrophils # (Auto) 10.6H, Lymphocytes # (Auto) 1.0L, Monocytes # (Auto) 0.7, Eosinophils # (Auto) 0.1, Basophils # (Auto) 0.0, Nucleated Red Blood Cells % (auto) 0.0, Anion Gap 9, Glomerular Filtration Rate 46.9, Calcium Level 7.8L, Total Bilirubin 1.2H, Aspartate Amino Transf (AST/SGOT) 16, Alanine Aminotransferase (ALT/SGPT) 10L, Alkaline Phosphatase 59, Total Creatine Kinase 22L, Creatine Kinase MB < 1.0, Creatine Kinase MB Relative Index 4.55H, Troponin I < 0.02, RN-Enb-O-Type Natriuretic Peptide 3243H, Total Protein 5.3L, Albumin 2.5L, Albumin/Globulin Ratio 0.9, Procalcitonin 0.56 02/13/21 17:00: Blood Gas Bicarbonate Standard 24.5, Arterial Blood pH 7.532H, Arterial Blood Partial Pressure CO2 26.5L, Arterial Blood Partial Pressure O2 65.5L, Arterial Blood Total CO2 22.6L, Arterial Blood HCO3 21.7L, Arterial Blood Base Excess 0.1, Arterial Blood Oxygen Saturation 94.0L 02/13/21 17:45: Bedside Glucose (Misc Panel) 107 02/13/21 18:39: Prothrombin Time 18.6H, Prothromb Time International Ratio 1.52, Activated Partial Thromboplast Time 40.5H 02/13/21 21:30: Bedside Glucose (Misc Panel) 199H 02/14/21 04:45: Nucleated Red Blood Cells % (auto) 0.0, Anion Gap 6L, Glomerular Filtration Rate 46.9, Calcium Level 8.3L 02/14/21 07:20: Bedside Glucose (Misc Panel) 178H 02/14/21 12:30: Bedside Glucose (Misc Panel) 185H CBC/BMP Laboratory Tests 02/13/21 16:59 02/14/21 04:45 Kaity Jose MD February 14, 2021 13:33
[2021-02-14] MEDS: NYSTATIN 100,000 UNITS/GM TOPICAL PWD 15 GM TOP SCH (20:48)
[2021-02-14] MEDS: RIVAROXABAN 15 MG TAB (XARELTO) PO SCH (20:49)
[2021-02-14] MEDS: SIMVASTATIN 40 MG TAB PO SCH (20:50)
[2021-02-14] MEDS: TERAZOSIN 5MG CAPSULE PO SCH (20:50)
[2021-02-15] VITALS (7 sets, daily range): BP systolic 93–117; BP diastolic 51–73
[2021-02-15] MEDS: HYDROCORTISONE 100 MG/2 ML VIAL (J1720 PER 1) IV SCH ×3 (04:30→20:44)
[2021-02-15 05:43] LABS: HEMATOCRIT 33.6 % (42.0-52.0); HEMOGLOBIN 10.5 g/dl (13.5-17.5); MEAN CORPUSCULAR HEMOGLOBIN 24.6 pg (27.0-33.0); MEAN CORPUSCULAR HGB CONC 31.3 g/dl (32.0-36.5); MEAN CORPUSCULAR VOLUME 78.9 fl (80.0-96.0); PLATELET COUNT, AUTOMATED 171 10^3/uL (150-450); RED BLOOD COUNT 4.26 10^6/uL (4.30-6.10)
[2021-02-15 06:19] LABS: ALBUMIN 2.5 GM/DL (3.2-5.2); BILIRUBIN,TOTAL 0.4 MG/DL (0.2-1.0); CALCIUM LEVEL 8.5 MG/DL (8.8-10.2); CREATININE FOR GFR 1.46 MG/DL (0.70-1.30); GLOMERULAR FILTRATION RATE 50.7 (>42); POTASSIUM SERUM 3.6 MEQ/L (3.5-5.1); TOTAL PROTEIN 5.2 GM/DL (6.4-8.2)
[2021-02-15] MEDS: HumaLOG INSULIN (NovoLOG) PER UNIT SC SCH ×4 (07:30→21:00)
--- NOTE | 2021-02-15 07:53 | REP ---
INDICATION: hypoxia. COMPARISON: January 30, 2021. April 01, 2020. TECHNIQUE: Portable upright AP chest radiograph. FINDINGS: Today's radiograph is exposed at a somewhat lordotic angle. This further magnifies the cardiac silhouette. Heart size is felt to be borderline unchanged. Pulmonary vasculature is somewhat congested.. There are increased markings in the right upper lobe compared with the April 01, 2020 prior radiograph suggesting an infiltrate. Pleural angles are sharp. Interstitial markings are diffusely prominent as before. IMPRESSION: Suspect right upper lobe infiltrate. Vascular congestion and prominent interstitial markings again noted.. <Electronically signed by Neto Alvarez > 02/15/21 [id number]
[2021-02-15] MEDS: glipiZIDE *2.5MG* 1/2 TABLET PO SCH (08:49)
[2021-02-15] MEDS: ASCORBIC ACID 250 MG TAB PO SCH (08:50)
[2021-02-15] MEDS: SPIRONOLACTONE 25 MG TAB PO SCH (08:50)
[2021-02-15] MEDS: DOCUSATE SODIUM 100MG CAPSULE PO SCH ×2 (08:50→20:43)
[2021-02-15] MEDS: OMEPRAZOLE 20 MG CAP PO SCH (08:50)
[2021-02-15] MEDS: FERROUS GLUCONATE 324 MG TAB PO SCH ×2 (08:50→20:43)
[2021-02-15] MEDS: SERTRALINE 100 MG TAB PO SCH (08:50)
[2021-02-15] MEDS: FINASTERIDE 5 MG TAB PO SCH (08:50)
[2021-02-15] MEDS: buPROPion **SR TABLET** (ZYBAN) 150MG PO SCH (08:50)
[2021-02-15] MEDS: NYSTATIN 100,000 UNITS/GM TOPICAL PWD 15 GM TOP SCH ×2 (08:51→20:44)
[2021-02-15] MEDS: FUROSEMIDE 40MG/4ML VIAL (J1940) IV SCH (08:51)
[2021-02-15] MEDS: cefTRIAXone SOD 1 GM in D5W MINI-BAG PLUS 50 ML IV SCH (09:04)
--- NOTE | 2021-02-15 09:27 | ECHO ---
DATE OF PROCEDURE: 02/14/2021 Age: 70 Gender: Male Height: 172 cm Weight: 100 kg REFERRING PHYSICIAN: Jeanie Milligan MD and Dr. Jose. INDICATION: Congestive heart failure and hypotension. MEASUREMENTS: IVS 1.1 cm LV 5.3 cm LVPW 1.1 cm LA 3.8 cm Aorta 3.9 cm IVC 2.2 cm Left atrial volume index 40 mL/m2 FINDINGS: This study is of fair technical quality. The patient is in atrial fibrillation with controlled rate. Left ventricle has normal size and overall normal contractility. I estimate EF in the neighborhood of 60% to 65%. Based on technical limitations of the study, I cannot rule out subtle wall motion abnormalities. The right ventricle is dilated and hypokinetic. Aortic valve is sclerotic. It was poorly visualized and I cannot comment on details of its structure. Mitral valve appears grossly normal. Tricuspid valve also appears grossly normal. Pulmonic valve was not seen. No pericardial effusion is noted. Inferior vena cava is dilated and there is limited collapse with inspiration indicative of high central venous pressure. Aortic root appears normal. Aortic arch and abdominal aorta were not well seen. Doppler interrogation of aortic valve reveals trace insufficiency. Unfortunately interrogation for aortic stenosis was not well performed and I cannot make any statements, but based on 2D imaging, it is unlikely that there is severe aortic stenosis. There is mild mitral and mild tricuspid insufficiency. Calculated pulmonary artery pressure is at least in the high 30s corresponding to mild pulmonary hypertension. Evaluation of diastolic function is inconclusive due to underlying atrial fibrillation. CONCLUSIONS: 1. Study is of fair technical quality, underlying atrial fibrillation with controlled rate. 2. Normal LV size with grossly preserved LV systolic function. 3. Dilated hypokinetic right ventricle. 4. Severe biatrial enlargement. 5. Prominent aortic sclerosis with trace insufficiency and unknown degree of stenosis based on 2D imaging, though I do not believe there is the likelihood of severe aortic stenosis. 6. Trace mitral insufficiency. 7. Mild tricuspid insufficiency. 8. High central venous pressure and at least mild pulmonary hypertension. MTDD
[2021-02-15] MEDS: ATOVAQUONE SUSP 750MG/5ML 210 ML BTL PO SCH (09:54)
[2021-02-15] MEDS ORDERED: POTASSIUM CHLORIDE 10 MEQ SR TABLET PO ONE (11:30)
--- NOTE | 2021-02-15 11:53 | IPN ---
PROGRESS NOTE DATE: 02/15/2021 SUBJECTIVE: Patient was seen and examined this morning during bedside rounds. Yesterday, he was given a dose of IV Lasix and he did have some diuresis. He does note improvement in his shortness of breath as well as in his cough that he had previously reported which was mostly nonproductive. He otherwise denies any chest pain currently. He has not had any fevers or chills. He was able to be weaned down on his oxygen requirement now to 2 liters a minute and then later 1 liter a minute this morning. OBJECTIVE: VITAL SIGNS: Temperature is 96.5, pulse is 71, respirations 18, blood pressure is 105/51. O2 sat 94% on 2 liters nasal cannula. INPUT AND OUTPUT: In 730 ml, out 1.2 liters, net negative 490 ml. GENERAL APPEARANCE: Patient is sitting in the bed and appears comfortable. He is awake, alert and oriented x3. He is speaking in complete sentences and not using any accessory muscles for respiration. HEENT: Normocephalic, atraumatic. Pupils reactive to light bilaterally. NECK: Supple. Trachea is midline. CARDIAC: Irregularly irregular rate and rhythm with normal S1 and S2 and a possible faint systolic murmur. PULMONARY: There is good air entry bilaterally with no significant wheezing or rhonchi and very scant crackles at the bases. ABDOMEN: Obese, soft, nontender and nondistended. EXTREMITIES: There is no significant lower extremity edema noted bilaterally. LABORATORY DATA: WBC is 13.0, hemoglobin is 10.5, platelets are 171,000. Chemistries: Sodium is 142, potassium is 3.6, chloride is 108, bicarbonate is 26, BUN 44, creatinine is 1.46. Glucose is 156, AST 12, ALT 14, albumin is 2.5, procalcitonin 0.56. Chest x-ray this morning shows increased pulmonary vascular congestion and fluffy alveolar infiltrates bilaterally. There is also questionable right upper lobe infiltrate. An echo showed an EF of 60 to 65%. There is RV dilation and hypokinesis. There is severe bi-atrial enlargement. IVC is dilated with evidence of increased central venous pressure. There is at least mild pulmonary hypertension and trace mitral regurgitation. ASSESSMENT AND PLAN: Mr. Quintero is a 70-year-old male with a past medical history of atrial fibrillation on anticoagulation, CHF with pulmonary hypertension, a history of alveolar hemorrhage with possible idiopathic pulmonary hemosiderosis who presented with complaints of worsening shortness of breath and dyspnea. Patient with acute hypoxemic respiratory failure on admission similar to recent previous admission earlier in January. He has also had admissions last year with similar acute hypoxia and had been treated with very high doses of Solu-Medrol. He had previously also been on chronic steroids in the past with prednisone and was following up with [facility] in [place]. 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 At his last visit, the patient was noted to have evidence of borderline blood pressure and hypotension and his diuretic dose was decreased. He had previously been on Lasix 80 mg daily as well as metolazone and spironolactone. On discharge, he was only on 40 mg of Lasix daily for diuretic only. On this admission, patient's acute hypoxemic respiratory failure likely does have a component of decompensated heart failure particularly as his BNP has been significantly increased from his baseline and given the change in his diuretics. Suspect he has pulmonary edema contributing to his hypoxia and his dyspnea. There is a possibility of an exacerbation of his interstitial lung disease although the diagnosis of idiopathic pulmonary hemosiderosis is somewhat in question based on his previously biopsies. He has not had any evidence of hemoptysis during this admission or his previous admission. He has also been continued on anticoagulation. Given his previous episodes of high dose steroids and prior chronic steroid use, he may have a degree of some adrenal insufficiency contributing to his hypotension. Will continue patient with 40 mg of Lasix IV for diuresis and will add an additional 20 mg IV in the p.m. Will also restart his Aldactone which will help with some of his hypokalemia. Will replete his potassium and continue to monitor his electrolytes. Will continue to monitor ins and outs. Would continue to wean down his nasal cannula oxygen supplementation. He does use CPAP at night for his history of LAKESHIA with his home machine at bedside. Will continue him with stress dose steroids with hydrocortisone but will decrease from 150 q. 8 hours to 100 mg q. 8 hours and then will slowly taper. If he does have pulmonary idiopathic hemosiderosis then he may need chronic steroids to help prevent exacerbations and flare-ups. He does need follow-up with Pulmonary, however, and would need to get more of his records from his previous putty and caulking supervisor to help with his interstitial lung disease diagnoses. Patient was started on Bactrim for PCP prophylaxis given his frequent steroid use. There is an interaction with Aldactone and so will change him to Atovaquone for now for PCP prophylaxis unless he is weaned down to only very minimal doses of steroids chronically. Can continue him with broad-spectrum antibiotics for now. His procalcitonin is mildly elevated. Will continue to trend procalcitonin to shop helper in deescalation of his antibiotics. Would consider repeat imaging in the next day or day. If there is significant improvement noted on imaging, suspect it would be more from pulmonary edema then from his idiopathic pulmonary hemosiderosis as the alveolar hemorrhage usually takes four to six weeks before you will see radiographic improvement. GI prophylaxis, on PPI. DVT prophylaxis, on Xarelto for anticoagulation. Code Status: DNR/DNI. MTDD
--- NOTE | 2021-02-15 15:14 | IPNPDOC ---
Date Seen The patient was seen on 02/15/21. Progress Note SUBJECTIVE: Decreased O2 requirement, saturating well on 2 L NC. Following pulmonary recommendations. PT ordered. Denies chest pain, n/v/d, increased SOB, fevers or chills. OBJECTIVE: PHYSICAL EXAMINATION: VITAL SIGNS: See below General: NAD, resting in bed. HEENT: Normocephalic, atraumatic. NC in place NECK: no JVD, Supple. Trachea is midline. CARDIAC: Regularly irregular rate, systolic murmur, S1S2 +, no rubs or gallops, no lower ext edema PULMONARY: improved crackles in b/l lower lung bases, no rhonchi, wheezing ABDOMEN: Obese, soft, nontender, and nondistended. EXTREMITIES: No cyanosis, clubbing NEURO: CN 2-12 intact, no sensory or motor deficits, no focal deficits. PSYCH: mood and affect appropriate LABORATORY DATA: See below. MICROBIOLOGY: Please see below. IMAGING: CXR 02/15/21: Suspect right upper lobe infiltrate. Vascular congestion and prominent interstitial markings again noted. Echocardiogram: EF 60-65% Study is of fair technical quality, underlying atrial fibrillation with controlled rate. Normal LV size with grossly preserved LV systolic function. Dilated hypokinetic right ventricle. Severe biatrial enlargement. Prominent aortic sclerosis with trace insufficiency and unknown degree of stenosis based on 2D imaging, though I do not believe there is the likelihood ofsevere aortic stenosis. Trace mitral insufficiency. Mild tricuspid insufficiency. 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 May not see significant improvement in imaging for 4-6 weeks. -IS/acapella HFpEF with exacerbation -BNP 3200, increased from 01/30/21 in 800's -Trop neg -Neg fluid balance since admission -Echo and repeat CXR above -C/w lasix, spironolactone, 2 gm sodium diet . Consider restarting BB when BP can tolerated ? CAP vs. PCP PNA -Procalcitonin > 0.5, hx of frequent steroid use -WBC wnl, afebrile but with incr O2 demand, CXR findings -D/c bactrim. C/w atovaquone, ceftriaxone -Sputum cx pending -Monitor procalcitonin to dental ceramist helper in deescalation of abx Hypotension poss 2/2 to adrenal insufficiency -BP slightly low but MAP >65 mmHg -has received many doses of high dose steroids from treatment of ILD over past several hospitalizations -No longer on pressor support , on stress dose steroids -Hx of HTN -Decreased hydrocortisone IV Q8Hrs and plan is to slowly taper. Acute hyperkalemia likely 2/2 to potassium supplement -D/c home potassium -Replace daily PRN -Daily labs CKD stage 3 -Cr at baseline -Daily labs Chronic atrial fibrillation -Currently rate controlled, A/C with xarelto BPH -C/w terazosin, proscar Depression - continue wellbutrin, zoloft DM -BS stable 170-200 this AM -Carb consistent diet -Patient is hesitant to stop glipizide and will only do so if modifying the sliding scale. -For now keep glipizide, monitor for s/s of hypoglycemia, risks discussed with him -ISS LAKESHIA -CPAP DLP - zocor GERD - prilosec Anemia of chronic disease -Stable -Daily CBC DVT px -xarelto DISPOSITION: Plan is PT/OT, discharge home when medically improved. VS, I&O, 24H, Fishbone Vital Signs/I&O Vital Signs Date Time Temp Pulse Resp B/P (MAP) Pulse Ox O2 Delivery O2 Flow Rate FiO2 02/15/21 12:00 1.0 02/15/21 12:00 97.2 74 18 102/56 (71) 93 Nasal Cannula I&O- Last 24 Hours up to 6 AM 02/15/21 06:00 Intake Total 610 ml Output Total 1075 ml Balance -465 ml Laboratory Data 24H LABS Laboratory Tests 2 02/14/21 17:31: Bedside Glucose (Misc Panel) 162H 02/14/21 20:29: Bedside Glucose (Misc Panel) 234H 02/15/21 04:50: Nucleated Red Blood Cells % (auto) 0.0, Anion Gap 8, Glomerular Filtration Rate 50.7, Calcium Level 8.5L, Total Bilirubin 0.4#, Aspartate Amino Transf (AST/SGOT) 12, Alanine Aminotransferase (ALT/SGPT) 14, Alkaline Phosphatase 55, Total Protein 5.2L, Albumin 2.5L, Albumin/Globulin Ratio 0.9 02/15/21 12:06: Bedside Glucose (Misc Panel) 127H CBC/BMP Laboratory Tests 02/15/21 04:50 Kaity Jose MD February 15, 2021 15:13
[2021-02-15] MEDS: FUROSEMIDE 20MG/2ML VIAL (J1940) IV SCH (16:22)
[2021-02-15] MEDS: TERAZOSIN 5MG CAPSULE PO SCH (20:43)
[2021-02-15] MEDS: RIVAROXABAN 15 MG TAB (XARELTO) PO SCH (20:43)
[2021-02-15] MEDS: SIMVASTATIN 40 MG TAB PO SCH (20:43)
[2021-02-16] VITALS: BP 112/70
[2021-02-16 04:00] VITALS: BP 104/55
[2021-02-16] MEDS: HYDROCORTISONE 100 MG/2 ML VIAL (J1720 PER 1) IV SCH ×2 (04:38→11:47)
[2021-02-16 05:18] LABS: HEMATOCRIT 32.5 % (42.0-52.0); HEMOGLOBIN 10.2 g/dl (13.5-17.5); MEAN CORPUSCULAR HEMOGLOBIN 24.5 pg (27.0-33.0); MEAN CORPUSCULAR HGB CONC 31.4 g/dl (32.0-36.5); MEAN CORPUSCULAR VOLUME 78.1 fl (80.0-96.0); PLATELET COUNT, AUTOMATED 194 10^3/uL (150-450); RED BLOOD COUNT 4.16 10^6/uL (4.30-6.10); WHITE BLOOD COUNT 8.1 10^3/uL (4.0-10.0)
[2021-02-16 05:42] LABS: ALBUMIN 2.4 GM/DL (3.2-5.2); BILIRUBIN,TOTAL 0.4 MG/DL (0.2-1.0); CALCIUM LEVEL 8.1 MG/DL (8.8-10.2); CREATININE FOR GFR 1.45 MG/DL (0.70-1.30); GLOMERULAR FILTRATION RATE 51.1 (>42); POTASSIUM SERUM 3.3 MEQ/L (3.5-5.1); TOTAL PROTEIN 5.2 GM/DL (6.4-8.2)
[2021-02-16] MEDS ORDERED: POTASSIUM CHLORIDE 10 MEQ SR TABLET PO ONE (05:55)
[2021-02-16] MEDS: HumaLOG INSULIN (NovoLOG) PER UNIT SC SCH ×4 (07:22→20:42)
[2021-02-16 07:28] VITALS: BP 124/70
[2021-02-16] MEDS: FUROSEMIDE 40MG/4ML VIAL (J1940) IV SCH (09:02)
[2021-02-16] MEDS: ATOVAQUONE SUSP 750MG/5ML 210 ML BTL PO SCH (09:02)
[2021-02-16] MEDS: buPROPion **SR TABLET** (ZYBAN) 150MG PO SCH (09:02)
[2021-02-16] MEDS: ASCORBIC ACID 250 MG TAB PO SCH (09:03)
[2021-02-16] MEDS: FINASTERIDE 5 MG TAB PO SCH (09:03)
[2021-02-16] MEDS: OMEPRAZOLE 20 MG CAP PO SCH (09:03)
[2021-02-16] MEDS: SERTRALINE 100 MG TAB PO SCH (09:03)
[2021-02-16] MEDS: SPIRONOLACTONE 25 MG TAB PO SCH (09:03)
[2021-02-16] MEDS: FERROUS GLUCONATE 324 MG TAB PO SCH ×2 (09:03→20:41)
[2021-02-16] MEDS: DOCUSATE SODIUM 100MG CAPSULE PO SCH ×2 (09:03→20:40)
[2021-02-16] MEDS: glipiZIDE *2.5MG* 1/2 TABLET PO SCH (09:03)
[2021-02-16] MEDS: NYSTATIN 100,000 UNITS/GM TOPICAL PWD 15 GM TOP SCH ×2 (09:04→20:43)
[2021-02-16] MEDS: cefTRIAXone SOD 1 GM in D5W MINI-BAG PLUS 50 ML IV SCH (09:04)
[2021-02-16 12:00] VITALS: BP 117/68
--- NOTE | 2021-02-16 12:22 | IPNPDOC ---
Date Seen The patient was seen on 02/16/21. Progress Note SUBJECTIVE: Decreased O2 requirement further to 1 L NC at rest but dropped to 80% on RA with activity- was placed on 3 L NC at that time and told to purse lip breath by PT. States on prior admissions O2 dropped dramatically with activity- may need home O2 with activity. PT to see again today. Denies chest pain, n/v/d, increased SOB, fevers or chills. OBJECTIVE: PHYSICAL EXAMINATION: VITAL SIGNS: See below General: NAD, resting in bed. HEENT: Normocephalic, atraumatic. NC in place NECK: no JVD, Supple. Trachea is midline. CARDIAC: Regularly irregular rate, systolic murmur, S1S2 +, no rubs or gallops, no lower ext edema PULMONARY: improved crackles in b/l lower lung bases, no rhonchi, wheezing ABDOMEN: Obese, soft, nontender, and nondistended. EXTREMITIES: No cyanosis, clubbing NEURO: CN 2-12 intact, no sensory or motor deficits, no focal deficits. PSYCH: mood and affect appropriate LABORATORY DATA: See below. MICROBIOLOGY: Please see below. IMAGING: CXR 02/15/21: Suspect right upper lobe infiltrate. Vascular congestion and prominent interstitial markings again noted. Echocardiogram: EF 60-65% Study is of fair technical quality, underlying atrial fibrillation with controlled rate. Normal LV size with grossly preserved LV systolic function. Dilated hypokinetic right ventricle. Severe biatrial enlargement. Prominent aortic sclerosis with trace insufficiency and unknown degree of stenosis based on 2D imaging, though I do not believe there is the likelihood ofsevere aortic stenosis. Trace mitral insufficiency. Mild tricuspid insufficiency. 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 May require supplemental O2 at discharge with activity- will reevaluate 24H prior to d/c when that time approaches. C/w supplemental oxygen, nebs PRN -Per pulmonary, may not see significant improvement in imaging for 4-6 weeks. -IS/acapella HFpEF with exacerbation -BNP 3200, increased from 01/30/21 in 800's -Trop neg -Neg fluid balance since admission -Echo and repeat CXR above -C/w lasix, spironolactone, 2 gm sodium diet . Consider restarting BB within next 24-48H if BP can tolerated while tapering steroids down ? CAP vs. PCP PNA -Procalcitonin > 0.5, hx of frequent steroid use -WBC wnl, afebrile -Repeating procalcitonin today -C/w atovaquone, ceftriaxone for now- discussed with Dr. Issa and to decide today whether or not to c/w PCP px -Sputum cx unable to be provided -Monitor procalcitonin to plating department helper in deescalation of abx Hypotension poss 2/2 to adrenal insufficiency- resolved -BP improved -has received many doses of high dose steroids from treatment of ILD over past several hospitalizations -No longer on pressor support , on stress dose steroids -Hx of HTN -Decreased hydrocortisone further today, plan is to keep on PO prednisone taper at discharge. Hypokalemia, chronic -Restarted home KCL 10 mg PO BID -Replace daily PRN -Daily labs CKD stage 3 -Cr at baseline -Daily labs Chronic atrial fibrillation -Currently rate controlled, A/C with xarelto BPH -C/w terazosin, proscar Depression - continue wellbutrin, zoloft DM -BS stable -Carb consistent diet -Patient is hesitant to stop glipizide and will only do so if modifying the sliding scale. -For now keep glipizide, monitor for s/s of hypoglycemia, risks discussed with him -ISS LAKESHIA -CPAP DLP - zocor GERD - prilosec Anemia of chronic disease -Stable -Daily CBC DVT px -xarelto DISPOSITION: Plan is PT/OT, may need home O2 at discharge. Discharge home with Pulm [facility] f/u when medically improved. VS, I&O, 24H, Fishbone Vital Signs/I&O Vital Signs Date Time Temp Pulse Resp B/P (MAP) Pulse Ox O2 Delivery O2 Flow Rate FiO2 02/16/21 12:00 96.8 83 18 117/68 (84) 100 Nasal Cannula 1.0 I&O- Last 24 Hours up to 6 AM 02/16/21 06:00 Intake Total 1850 ml Output Total 1925 ml Balance -75 ml Laboratory Data 24H LABS Laboratory Tests 2 02/15/21 16:21: Bedside Glucose (Misc Panel) 133H 02/15/21 21:31: Bedside Glucose (Misc Panel) 210H 02/16/21 04:38: Nucleated Red Blood Cells % (auto) 0.0, Anion Gap 8, Glomerular Filtration Rate 51.1, Calcium Level 8.1L, Total Bilirubin 0.4, Aspartate Amino Transf (AST/SGOT) 7, Alanine Aminotransferase (ALT/SGPT) 15, Alkaline Phosphatase 52, Total Protein 5.2L, Albumin 2.4L, Albumin/Globulin Ratio 0.9 02/16/21 11:33: Bedside Glucose (Misc Panel) 165H CBC/BMP Laboratory Tests 02/16/21 04:38 Kaity Jose MD February 16, 2021 12:22
[2021-02-16] MEDS: FUROSEMIDE 20MG/2ML VIAL (J1940) IV SCH (14:49)
[2021-02-16 16:00] VITALS: BP_SYST 126; BP_DIAS 12; BP_DIAS 72
[2021-02-16 20:05] VITALS: BP 121/66
[2021-02-16] MEDS: TERAZOSIN 5MG CAPSULE PO SCH (20:40)
[2021-02-16] MEDS: RIVAROXABAN 15 MG TAB (XARELTO) PO SCH (20:40)
[2021-02-16] MEDS: POTASSIUM CHLORIDE 10 MEQ SR TABLET PO SCH (20:41)
[2021-02-16] MEDS: SIMVASTATIN 40 MG TAB PO SCH (20:41)
[2021-02-17] VITALS (7 sets, daily range): BP systolic 94–116; BP diastolic 51–71
[2021-02-17] MEDS: HYDROCORTISONE 100 MG/2 ML VIAL (J1720 PER 1) IV SCH ×3 (00:12→23:52)
[2021-02-17 05:43] LABS: HEMOGLOBIN 10.4 g/dl (13.5-17.5); MEAN CORPUSCULAR HEMOGLOBIN 24.6 pg (27.0-33.0); MEAN CORPUSCULAR HGB CONC 31.5 g/dl (32.0-36.5); PLATELET COUNT, AUTOMATED 165 10^3/uL (150-450); RED BLOOD COUNT 4.23 10^6/uL (4.30-6.10); WHITE BLOOD COUNT 6.5 10^3/uL (4.0-10.0)
[2021-02-17 06:16] LABS: ALBUMIN 2.4 GM/DL (3.2-5.2); BILIRUBIN,TOTAL 0.5 MG/DL (0.2-1.0); CALCIUM LEVEL 8.1 MG/DL (8.8-10.2); CREATININE FOR GFR 1.5 MG/DL (0.70-1.30); GLOMERULAR FILTRATION RATE 49.1 (>42); POTASSIUM SERUM 3.2 MEQ/L (3.5-5.1); TOTAL PROTEIN 5.1 GM/DL (6.4-8.2)
[2021-02-17] MEDS: HumaLOG INSULIN (NovoLOG) PER UNIT SC SCH ×4 (07:30→21:00)
[2021-02-17] MEDS: FUROSEMIDE 40MG/4ML VIAL (J1940) IV SCH (08:00)
[2021-02-17] MEDS: DOCUSATE SODIUM 100MG CAPSULE PO SCH ×2 (08:00→21:08)
[2021-02-17] MEDS: ASCORBIC ACID 250 MG TAB PO SCH (08:00)
[2021-02-17] MEDS: ATOVAQUONE SUSP 750MG/5ML 210 ML BTL PO SCH (08:00)
[2021-02-17] MEDS: FERROUS GLUCONATE 324 MG TAB PO SCH ×2 (08:00→21:08)
[2021-02-17] MEDS ORDERED: POTASSIUM CHLORIDE 10 MEQ SR TABLET PO ONE (08:00)
[2021-02-17] MEDS: glipiZIDE *2.5MG* 1/2 TABLET PO SCH (08:01)
[2021-02-17] MEDS: buPROPion **SR TABLET** (ZYBAN) 150MG PO SCH (08:01)
[2021-02-17] MEDS: SPIRONOLACTONE 25 MG TAB PO SCH (08:01)
[2021-02-17] MEDS: FINASTERIDE 5 MG TAB PO SCH (08:01)
[2021-02-17] MEDS: POTASSIUM CHLORIDE 10 MEQ SR TABLET PO SCH ×2 (08:01→21:08)
[2021-02-17] MEDS: NYSTATIN 100,000 UNITS/GM TOPICAL PWD 15 GM TOP SCH ×2 (08:02→21:00)
[2021-02-17] MEDS: SERTRALINE 100 MG TAB PO SCH (08:02)
[2021-02-17] MEDS: OMEPRAZOLE 20 MG CAP PO SCH (08:02)
[2021-02-17] MEDS ORDERED: SLF 3 ML SYR IV PRN (09:05)
--- NOTE | 2021-02-17 09:06 | REP ---
INDICATION: f/u to see if improvement COMPARISON: 02/15/2021 TECHNIQUE: PA and lateral. FINDINGS: Diffuse bilateral airspace disease (right greater than left) is again appreciated and relatively similar to prior examination when allowing for variation in technique and respiratory effort. No effusion. No pneumothorax. Cardiac silhouette is upper limits of normal. Skeletal structures are intact. IMPRESSION: Diffuse acute on chronic airspace disease similar to prior examination. <Electronically signed by Abraham Randolph > 02/17/21 0902
[2021-02-17] MEDS: cefTRIAXone SOD 1 GM in D5W MINI-BAG PLUS 50 ML IV SCH (10:00)
[2021-02-17] MEDS: SLF 3 ML SYR IV SCH ×2 (13:25→21:10)
--- NOTE | 2021-02-17 13:33 | IPNPDOC ---
Date Seen The patient was seen on 02/17/21. Progress Note SUBJECTIVE: cleared by PT; however, still dropping O2 sat with activity <88%, needed 3 L to recover. Decreasing steroids, 2 soft BP's since decreasing. Deescalating abx further. Denies chest pain, n/v/d, increased SOB, fevers or chills. OBJECTIVE: PHYSICAL EXAMINATION: VITAL SIGNS: See below General: NAD, resting in bed. HEENT: Normocephalic, atraumatic. NC in place NECK: no JVD, Supple. Trachea is midline. CARDIAC: Regularly irregular rate, systolic murmur, S1S2 +, no rubs or gallops, no lower ext edema PULMONARY: improving crackles in b/l lower lung bases, no rhonchi, wheezing ABDOMEN: Obese, soft, nontender, and nondistended. EXTREMITIES: No cyanosis, clubbing NEURO: CN 2-12 intact, no sensory or motor deficits, no focal deficits. PSYCH: mood and affect appropriate LABORATORY DATA: See below. MICROBIOLOGY: Please see below. IMAGING: Repeat CXR 02/16/21: Similar to last on file, no new findings CXR 02/15/21: Suspect right upper lobe infiltrate. Vascular congestion and prominent interstitial markings again noted. Echocardiogram: EF 60-65% Study is of fair technical quality, underlying atrial fibrillation with controlled rate. Normal LV size with grossly preserved LV systolic function. Dilated hypokinetic right ventricle. Severe biatrial enlargement. Prominent aortic sclerosis with trace insufficiency and unknown degree of stenosis based on 2D imaging, though I do not believe there is the likelihood ofsevere aortic stenosis. Trace mitral insufficiency. Mild tricuspid insufficiency. 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 Discussed with Dr. Issa. patient no longer wants to follow with [place] pulmonary services. -C/w supplemental oxygen, nebs PRN -Per pulmonary, may not see significant improvement in imaging for 4-6 weeks. -IS/acapella HFpEF with exacerbation -BNP 3200, increased from 01/30/21 in 800's -Trop neg -Neg fluid balance since admission -Echo and repeat CXR above -C/w lasix, spironolactone, 2 gm sodium diet . Consider restarting BB within next 24-48H if BP can tolerated while tapering steroids down ? CAP vs. PCP PNA -Procalcitonin much improved. -With hx of frequent steroid use and CXR, concern remained for PCP PNA -WBC wnl, afebrile -C/w atovaquone, ceftriaxone stopped and patient transitioned to PO levofloxacin (to complete total 7 days for CAP). -To be discharged with atovaquone and f/u with pulmonary -Sputum cx unable to be provided Hypotension poss 2/2 to adrenal insufficiency -BP improved but two soft BP's over past 24 hours, watching closely -has received many doses of high dose steroids from treatment of ILD over past several hospitalizations -Hx of HTN -Decreased hydrocortisone further today, plan is to keep on PO prednisone taper at discharge. Hypokalemia, chronic likely worsened here 2/2 to diuretic use -Restarted home KCL 10 mg PO BID -Given additional 20 mEq -Replace daily PRN -Daily labs CKD stage 3 -Cr at baseline -Daily labs Chronic atrial fibrillation -Currently rate controlled, A/C with xarelto BPH -C/w terazosin, proscar Depression - continue wellbutrin, zoloft DM -BS stable -Carb consistent diet -Patient is hesitant to stop glipizide and will only do so if modifying the sliding scale. -For now keep glipizide, monitor for s/s of hypoglycemia, risks discussed with him -ISS LAKESHIA -CPAP DLP - zocor GERD - prilosec Anemia of chronic disease -Stable -Daily CBC DVT px -xarelto DISPOSITION: May need home O2 at discharge. PT: cleared functinally, will need home serives at discharge. [facility]. Will likely be after weekend so we can monitor BP off IV steroids, decide if needs home O2. VS, I&O, 24H, [place] Vital Signs/I&O Vital Signs Date Time Temp Pulse Resp B/P (MAP) Pulse Ox O2 Delivery O2 Flow Rate FiO2 02/17/21 12:00 96.7 67 18 97/60 (72) 97 Nasal Cannula 2.0 I&O- Last 24 Hours up to 6 AM 02/17/21 05:59 Intake Total 1647 ml Output Total 2825 ml Balance -1178 ml Laboratory Data 24H LABS Laboratory Tests 2 02/16/21 16:32: Bedside Glucose (Misc Panel) 144H 02/16/21 20:35: Bedside Glucose (Misc Panel) 169H 02/17/21 05:11: Nucleated Red Blood Cells % (auto) 0.0, Anion Gap 9, Glomerular Filtration Rate 49.1, Calcium Level 8.1L, Total Bilirubin 0.5, Aspartate Amino Transf (AST/SGOT) 7, Alanine Aminotransferase (ALT/SGPT) 15, Alkaline Phosphatase 58, Total Protein 5.1L, Albumin 2.4L, Albumin/Globulin Ratio 0.9, Procalcitonin <0.05 02/17/21 11:31: Bedside Glucose (Misc Panel) 90 CBC/BMP Laboratory Tests 02/17/21 05:11 Kaity Jose MD February 17, 2021 13:33
[2021-02-17] MEDS: FUROSEMIDE 20MG/2ML VIAL (J1940) IV SCH (14:56)
[2021-02-17] MEDS: RIVAROXABAN 15 MG TAB (XARELTO) PO SCH (21:08)
[2021-02-17] MEDS: SIMVASTATIN 40 MG TAB PO SCH (21:09)
[2021-02-17] MEDS: TERAZOSIN 5MG CAPSULE PO SCH (21:09)
[2021-02-18 04:00] VITALS: BP 117/55
[2021-02-18] MEDS: LevoFLOXacin 750 MG TABLET PO SCH (05:31)
[2021-02-18] MEDS: SLF 3 ML SYR IV SCH ×3 (05:31→22:00)
[2021-02-18 05:54] LABS: HEMATOCRIT 33.8 % (42.0-52.0); HEMOGLOBIN 10.5 g/dl (13.5-17.5); MEAN CORPUSCULAR HEMOGLOBIN 24.4 pg (27.0-33.0); MEAN CORPUSCULAR HGB CONC 31.1 g/dl (32.0-36.5); MEAN CORPUSCULAR VOLUME 78.6 fl (80.0-96.0); PLATELET COUNT, AUTOMATED 175 10^3/uL (150-450); WHITE BLOOD COUNT 5.4 10^3/uL (4.0-10.0)
[2021-02-18 06:29] LABS: ALBUMIN 2.5 GM/DL (3.2-5.2); BILIRUBIN,TOTAL 0.5 MG/DL (0.2-1.0); CALCIUM LEVEL 7.3 MG/DL (8.8-10.2); CREATININE FOR GFR 1.38 MG/DL (0.70-1.30); GLOMERULAR FILTRATION RATE 54.1 (>42); POTASSIUM SERUM 2.9 MEQ/L (3.5-5.1); TOTAL PROTEIN 5.4 GM/DL (6.4-8.2)
[2021-02-18] MEDS ORDERED: KCL 10MEQ/100ML SWI (KRUN) 10 MEQ in IV 1 EA IV ONE ×2 (06:40→07:40)
[2021-02-18] MEDS: HumaLOG INSULIN (NovoLOG) PER UNIT SC SCH ×4 (07:30→20:32)
[2021-02-18 08:00] VITALS: BP 139/84
[2021-02-18] MEDS ORDERED: POTASSIUM CHLORIDE 10 MEQ SR TABLET PO ONE ×2 (08:30→10:00)
[2021-02-18] MEDS: ATOVAQUONE SUSP 750MG/5ML 210 ML BTL PO SCH (08:53)
[2021-02-18] MEDS: FINASTERIDE 5 MG TAB PO SCH (08:54)
[2021-02-18] MEDS: ASCORBIC ACID 250 MG TAB PO SCH (08:54)
[2021-02-18] MEDS: OMEPRAZOLE 20 MG CAP PO SCH (08:54)
[2021-02-18] MEDS: DOCUSATE SODIUM 100MG CAPSULE PO SCH ×2 (08:54→20:31)
[2021-02-18] MEDS: glipiZIDE *2.5MG* 1/2 TABLET PO SCH (08:55)
[2021-02-18] MEDS: FERROUS GLUCONATE 324 MG TAB PO SCH ×2 (08:55→20:31)
[2021-02-18] MEDS: FUROSEMIDE 20 MG TAB PO SCH (08:55)
[2021-02-18] MEDS: SERTRALINE 100 MG TAB PO SCH (08:55)
[2021-02-18] MEDS: buPROPion **SR TABLET** (ZYBAN) 150MG PO SCH (08:56)
[2021-02-18] MEDS: predniSONE 20 MG TAB PO SCH (08:56)
[2021-02-18] MEDS: SPIRONOLACTONE 25 MG TAB PO SCH (08:56)
[2021-02-18] MEDS: NYSTATIN 100,000 UNITS/GM TOPICAL PWD 15 GM TOP SCH ×2 (09:00→20:52)
--- NOTE | 2021-02-18 15:31 | IPNPDOC ---
Date Seen The patient was seen on 02/18/21. Progress Note SUBJECTIVE: Transitioned to PO prednisone today, on RA today. Walking test tomorrow, watching blood pressure. Denies chest pain, n/v/d, increased SOB, fevers or chills. OBJECTIVE: PHYSICAL EXAMINATION: VITAL SIGNS: See below General: NAD, resting in bed. HEENT: Normocephalic, atraumatic. NECK: no JVD, Supple. Trachea is midline. CARDIAC: Regularly irregular rate, systolic murmur, S1S2 +, no rubs or gallops, no lower ext edema PULMONARY: improving crackles in b/l lower lung bases, no rhonchi, wheezing ABDOMEN: Obese, soft, nontender, and nondistended EXTREMITIES: No cyanosis, clubbing NEURO: CN 2-12 intact, no sensory or motor deficits, no focal deficits. PSYCH: mood and affect appropriate LABORATORY DATA: See below. MICROBIOLOGY: Please see below. IMAGING: Repeat CXR 02/17/21: Similar to last on file, no new findings CXR 02/15/21: Suspect right upper lobe infiltrate. Vascular congestion and prominent interstitial markings again noted. Echocardiogram: EF 60-65% Study is of fair technical quality, underlying atrial fibrillation with controlled rate. Normal LV size with grossly preserved LV systolic function. Dilated hypokinetic right ventricle. Severe biatrial enlargement. Prominent aortic sclerosis with trace insufficiency and unknown degree of steno sis based on 2D imaging, though I do not believe there is the likelihood ofsevere aortic stenosis. Trace mitral insufficiency. Mild tricuspid insufficiency. 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 Discussed with Dr. Issa. patient no longer wants to follow with [place] pulmonary services and will f/u with pulmonary in [place]. -C/w supplemental oxygen, nebs PRN -Per pulmonary, may not see significant improvement in imaging for 4-6 weeks. -IS/acapella -Another walking desat test scheduled for 02/19, as patient may need to be discharged 02/20/21 with home O2 HFpEF with resolved exacerbation -BNP 3200--> 880's -Trop neg -Neg fluid balance since admission -Echo and repeat CXR above -C/w lasix, spironolactone, BB with holding parameers, 2 gm sodium diet ? CAP vs. PCP PNA -Procalcitonin much improved. -With hx of frequent steroid use and CXR, concern remained for PCP PNA -WBC wnl, afebrile -C/w atovaquone, ceftriaxone stopped and patient transitioned to PO levofloxacin (to complete total 7 days for CAP). -To be discharged with atovaquone and f/u with pulmonary -Sputum cx unable to be provided Hypotension poss 2/2 to adrenal insufficiency- improved with steroids -BP improved -has received many doses of high dose steroids from treatment of ILD over past several hospitalizations, stopped IV today -Started on PO prednisone taper above -Hx of HTN -Watch closely while on BB low dose BID Hypokalemia, chronic likely worsened here 2/2 to diuretic use -K 2.9 -Given 60 mEq KCL today -Started on 20 mEq BID today, can replace PRN additionally -Daily labs CKD stage 3 -Cr 1.38, better than baseline -Daily labs Chronic atrial fibrillation -Currently rate controlled, A/C with xarelto BPH -C/w terazosin, proscar Depression - continue wellbutrin, zoloft DM -BS stable -Carb consistent diet -Patient is hesitant to stop glipizide and will only do so if modifying the sliding scale. -For now keep glipizide, monitor for s/s of hypoglycemia, risks discussed with him -ISS LAKESHIA -CPAP DLP - zocor GERD - prilosec Anemia of chronic disease -Stable -Daily CBC DVT px -xarelto DISPOSITION: Just taken off IV steroids today, watching BP closely. tomorrow repeat walking test to see if O2 with discharge will be needed. PT: cleared functinally, home services at discharge. [facility]. Will likely be after weekend to get everything set up. VS, I&O, 24H, Fishbone Vital Signs/I&O Vital Signs Date Time Temp Pulse Resp B/P (MAP) Pulse Ox O2 Delivery O2 Flow Rate FiO2 02/18/21 12:00 NIPPV (BIPAP/CPAP) 02/18/21 08:00 96.5 96 18 139/84 (102) 7 02/17/21 16:00 1.0 I&O- Last 24 Hours up to 6 AM 02/18/21 06:00 Intake Total 1450 ml Output Total 2300 ml Balance -850 ml Laboratory Data 24H LABS Laboratory Tests 2 02/17/21 16:37: Bedside Glucose (Misc Panel) 142H 02/17/21 21:00: Bedside Glucose (Misc Panel) 147H 02/18/21 05:24: Nucleated Red Blood Cells % (auto) 0.0, Anion Gap 6L, Glomerular Filtration Rate 54.1, Calcium Level 7.3L, Total Bilirubin 0.5, Aspartate Amino Transf (AST/SGOT) 6L, Alanine Aminotransferase (ALT/SGPT) 19, Alkaline Phosphatase 57, PA-[id number]-I-Type Natriuretic Peptide 883H, Total Protein 5.4L, Albumin 2.5L, Albumin/Globulin Ratio 0.9 CBC/BMP Laboratory Tests 02/18/21 05:24 Kaity Jose MD February 18, 2021 15:31
[2021-02-18 16:00] VITALS: BP 102/63
[2021-02-18 19:48] VITALS: BP 102/66
[2021-02-18] MEDS: SIMVASTATIN 40 MG TAB PO SCH (20:31)
[2021-02-18] MEDS: TERAZOSIN 5MG CAPSULE PO SCH (20:31)
[2021-02-18] MEDS: RIVAROXABAN 15 MG TAB (XARELTO) PO SCH (20:32)
[2021-02-18] MEDS: METOPROLOL TART 12.5 MG PER 1/2 TAB PO SCH (20:46)
[2021-02-19 00:27] VITALS: BP 119/76
[2021-02-19 04:09] VITALS: BP 114/57
[2021-02-19 05:16] LABS: HEMATOCRIT 33.3 % (42.0-52.0); HEMOGLOBIN 10.3 g/dl (13.5-17.5); MEAN CORPUSCULAR HEMOGLOBIN 24.4 pg (27.0-33.0); MEAN CORPUSCULAR HGB CONC 30.9 g/dl (32.0-36.5); MEAN CORPUSCULAR VOLUME 78.9 fl (80.0-96.0); PLATELET COUNT, AUTOMATED 175 10^3/uL (150-450); RED BLOOD COUNT 4.22 10^6/uL (4.30-6.10); WHITE BLOOD COUNT 7.7 10^3/uL (4.0-10.0)
[2021-02-19 05:27] LABS: ALBUMIN 2.5 GM/DL (3.2-5.2); BILIRUBIN,TOTAL 0.4 MG/DL (0.2-1.0); CALCIUM LEVEL 8.1 MG/DL (8.8-10.2); CREATININE FOR GFR 1.38 MG/DL (0.70-1.30); GLOMERULAR FILTRATION RATE 54.1 (>42); POTASSIUM SERUM 3.1 MEQ/L (3.5-5.1); TOTAL PROTEIN 5.3 GM/DL (6.4-8.2)
[2021-02-19] MEDS: LevoFLOXacin 750 MG TABLET PO SCH (05:55)
[2021-02-19] MEDS: SLF 3 ML SYR IV SCH ×3 (05:55→21:00)
[2021-02-19] MEDS: HumaLOG INSULIN (NovoLOG) PER UNIT SC SCH ×4 (07:12→21:00)
[2021-02-19] MEDS ORDERED: POTASSIUM CHLORIDE 10 MEQ SR TABLET PO ONE (07:45)
[2021-02-19] MEDS: glipiZIDE *2.5MG* 1/2 TABLET PO SCH (07:47)
[2021-02-19 08:00] VITALS: BP 126/68
[2021-02-19] MEDS: NYSTATIN 100,000 UNITS/GM TOPICAL PWD 15 GM TOP SCH ×2 (09:00→21:00)
[2021-02-19] MEDS: SERTRALINE 100 MG TAB PO SCH (09:27)
[2021-02-19] MEDS: FINASTERIDE 5 MG TAB PO SCH (09:27)
[2021-02-19] MEDS: ATOVAQUONE SUSP 750MG/5ML 210 ML BTL PO SCH (09:27)
[2021-02-19] MEDS: DOCUSATE SODIUM 100MG CAPSULE PO SCH ×2 (09:27→21:00)
[2021-02-19] MEDS: ASCORBIC ACID 250 MG TAB PO SCH (09:28)
[2021-02-19] MEDS: FUROSEMIDE 20 MG TAB PO SCH (09:28)
[2021-02-19] MEDS: OMEPRAZOLE 20 MG CAP PO SCH (09:28)
[2021-02-19] MEDS: SPIRONOLACTONE 25 MG TAB PO SCH (09:28)
[2021-02-19] MEDS: METOPROLOL TART 12.5 MG PER 1/2 TAB PO SCH ×2 (09:28→21:00)
[2021-02-19] MEDS: FERROUS GLUCONATE 324 MG TAB PO SCH ×2 (09:29→20:59)
[2021-02-19] MEDS: predniSONE 20 MG TAB PO SCH (09:29)
[2021-02-19] MEDS: buPROPion **SR TABLET** (ZYBAN) 150MG PO SCH (09:29)
[2021-02-19] MEDS: POTASSIUM CHLORIDE 10 MEQ SR TABLET PO SCH ×2 (10:54→20:58)
--- NOTE | 2021-02-19 12:24 | IPNPDOC ---
Date Seen The patient was seen on 02/19/21. Progress Note SUBJECTIVE: Walked with nursing today, remained 90% on RA with activity walking 40 ft, requires no O2 with rest currently. BP stable. Denies chest pain, n/v/d, increased SOB, fevers or chills. OBJECTIVE: PHYSICAL EXAMINATION: VITAL SIGNS: See below General: NAD, resting in bed. HEENT: Normocephalic, atraumatic. NECK: no JVD, Supple. Trachea is midline. CARDIAC: Regularly irregular rate, systolic murmur, S1S2 +, no rubs or gallops, no lower ext edema PULMONARY: mild crackles in b/l lower lung - much improved , no rhonchi, wheezing ABDOMEN: Obese, soft, nontender, and nondistended EXTREMITIES: No cyanosis, clubbing NEURO: CN 2-12 intact, no sensory or motor deficits, no focal deficits. PSYCH: mood and affect appropriate LABORATORY DATA: See below. MICROBIOLOGY: Please see below. IMAGING: Repeat CXR 02/17/21: Similar to last on file, no new findings CXR 02/15/21: Suspect right upper lobe infiltrate. Vascular congestion and prominent interstitial markings again noted. Echocardiogram: EF 60-65% Study is of fair technical quality, underlying atrial fibrillation with controlled rate. Normal LV size with grossly preserved LV systolic function. Dilated hypokinetic right ventricle. Severe biatrial enlargement. Prominent aortic sclerosis with trace insufficiency and unknown degree of stenosis based on 2D imaging, though I do not believe there is the likelihood ofsevere aortic stenosis. Trace mitral insufficiency. Mild tricuspid insufficiency. 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 -Pulmonary has evaluated -F/u individual treatment plans for issues below Idiopathic pulmonary hemosiderosis (IPH), interstitial lung disease with exacerbation -Hx of alveolar hemorrhage without documented bleeding this stay, recently admitted in 01/2021 for flare of IPH -Repeat CXR above -D/alexandro IV steroids 02/18/21, starting prednisone taper : 40 mg Po x 5 days, 30 mg PO x 5 days, 20 mg PO until is seen by pulmonary here locally. Discussed with Dr. Sears. patient no longer wants to follow with [place] pulmonary services and will f/u with pulmonary in [place]. -C/w supplemental oxygen, nebs PRN while here -Per pulmonary, may not see significant improvement in imaging for 4-6 weeks. -IS/acapella -did well with walking test and does not require O2 with ambulation or at rest currently HFpEF with resolved exacerbation-improved -BNP 3200--> 880's . Still net negative since admission -Trop neg -Neg fluid balance since admission -Echo and repeat CXR above -C/w lasix, spironolactone, BB with holding parameers, 2 gm sodium diet ? CAP vs. PCP PNA -Procalcitonin much improved. -With hx of frequent steroid use and CXR, concern remained for PCP PNA -WBC wnl, afebrile -C/w atovaquone, ceftriaxone stopped and patient transitioned to PO levofloxacin (currently day 2 to complete total 7 days for CAP). -To be discharged with atovaquone and f/u with pulmonary -Sputum cx unable to be provided Hypotension poss 2/2 to adrenal insufficiency- improved with steroids -BP stable -has received many doses of high dose steroids from treatment of ILD over past several hospitalizations, stopped IV steroids 02/18/21 -Started on PO prednisone taper above -Hx of HTN -Watch closely while on BB low dose BID Hypokalemia, chronic likely worsened here 2/2 to diuretic use -K 3.1 -Given 30 mEq KCL extra today in addition to standing KCL 20 mEq BID, can replace PRN additionally -Daily labs CKD stage 3 -Cr 1.38, better than baseline -Daily labs Chronic atrial fibrillation -Currently rate controlled, A/C with xarelto BPH -C/w terazosin, proscar Depression - continue wellbutrin, zoloft DM -BS stable -Carb consistent diet -Patient is hesitant to stop glipizide and will only do so if modifying the sliding scale. -For now keep glipizide, monitor for s/s of hypoglycemia, risks discussed with him -ISS LAKESHIA -CPAP DLP - zocor GERD - prilosec Anemia of chronic disease -Stable -Daily CBC DVT px -xarelto DISPOSITION: BP doing well on PO prednisone. Required no O2 with ambulation, remained on RA. Plan is if patient does well again with walking, d/c home without O2, f/u with pulmonary per patient's request. VS, I&O, 24H, Fishbone Vital Signs/I&O Vital Signs Date Time Temp Pulse Resp B/P (MAP) Pulse Ox O2 Delivery O2 Flow Rate FiO2 02/19/21 08:00 Room Air 02/19/21 04:09 97.4 65 14 114/57 (76) 98 02/17/21 16:00 1.0 I&O- Last 24 Hours up to 6 AM 02/19/21 06:00 Intake Total 900 ml Output Total 600 ml Balance 300 ml Laboratory Data 24H LABS Laboratory Tests 2 02/18/21 20:43: Bedside Glucose (Misc Panel) 166H 02/19/21 04:50: Nucleated Red Blood Cells % (auto) 0.0, Anion Gap 5L, Glomerular Filtration Rate 54.1, Calcium Level 8.1L, Total Bilirubin 0.4, Aspartate Amino Transf (AST/SGOT) 8, Alanine Aminotransferase (ALT/SGPT) 19, Alkaline Phosphatase 55, Total Prote in 5.3L, Albumin 2.5L, Albumin/Globulin Ratio 0.9 CBC/BMP Laboratory Tests 02/19/21 04:50 Kaity Jose MD February 19, 2021 12:24
[2021-02-19 16:00] VITALS: BP 99/58
[2021-02-19] MEDS ORDERED: KLOR10TA76 PO (18:32)
[2021-02-19] MEDS ORDERED: FURO20TA2 PO (18:32)
[2021-02-19] MEDS ORDERED: LEVO750T13 PO (18:32)
[2021-02-19] MEDS ORDERED: ALDA25TA2 PO (18:32)
[2021-02-19] MEDS ORDERED: ATOV5SUS PO (18:32)
[2021-02-19] MEDS ORDERED: PRED20TA PO (18:32)
[2021-02-19 20:42] VITALS: BP 104/55
[2021-02-19] MEDS: TERAZOSIN 5MG CAPSULE PO SCH (20:59)
[2021-02-19] MEDS: SIMVASTATIN 40 MG TAB PO SCH (21:00)
[2021-02-19] MEDS: RIVAROXABAN 15 MG TAB (XARELTO) PO SCH (21:00)
[2021-02-20 04:00] VITALS: BP 109/61
[2021-02-20 05:49] LABS: HEMATOCRIT 33.6 % (42.0-52.0); HEMOGLOBIN 10.3 g/dl (13.5-17.5); MEAN CORPUSCULAR HEMOGLOBIN 24.3 pg (27.0-33.0); MEAN CORPUSCULAR HGB CONC 30.7 g/dl (32.0-36.5); MEAN CORPUSCULAR VOLUME 79.4 fl (80.0-96.0); PLATELET COUNT, AUTOMATED 195 10^3/uL (150-450); RED BLOOD COUNT 4.23 10^6/uL (4.30-6.10); WHITE BLOOD COUNT 8.8 10^3/uL (4.0-10.0)
[2021-02-20] MEDS: SLF 3 ML SYR IV SCH (06:00)
[2021-02-20] MEDS: LevoFLOXacin 750 MG TABLET PO SCH (06:10)
[2021-02-20 06:21] LABS: ALBUMIN 2.7 GM/DL (3.2-5.2); BILIRUBIN,TOTAL 0.3 MG/DL (0.2-1.0); CALCIUM LEVEL 8.2 MG/DL (8.8-10.2); CREATININE FOR GFR 1.29 MG/DL (0.70-1.30); GLOMERULAR FILTRATION RATE 58.5 (>42); POTASSIUM SERUM 3.8 MEQ/L (3.5-5.1); TOTAL PROTEIN 5.3 GM/DL (6.4-8.2)
[2021-02-20] MEDS: HumaLOG INSULIN (NovoLOG) PER UNIT SC SCH (07:30)
[2021-02-20 08:00] VITALS: BP 117/59
[2021-02-20 08:16] VITALS: BP 117/59
[2021-02-20] MEDS: METOPROLOL TART 12.5 MG PER 1/2 TAB PO SCH (08:16)
[2021-02-20] MEDS: glipiZIDE *2.5MG* 1/2 TABLET PO SCH (08:16)
[2021-02-20] MEDS: buPROPion **SR TABLET** (ZYBAN) 150MG PO SCH (08:17)
[2021-02-20] MEDS: FERROUS GLUCONATE 324 MG TAB PO SCH (08:17)
[2021-02-20] MEDS: FUROSEMIDE 20 MG TAB PO SCH (08:17)
[2021-02-20] MEDS: ASCORBIC ACID 250 MG TAB PO SCH (08:17)
[2021-02-20] MEDS: OMEPRAZOLE 20 MG CAP PO SCH (08:17)
[2021-02-20] MEDS: SERTRALINE 100 MG TAB PO SCH (08:17)
[2021-02-20] MEDS: predniSONE 20 MG TAB PO SCH (08:18)
[2021-02-20] MEDS: FINASTERIDE 5 MG TAB PO SCH (08:18)
[2021-02-20] MEDS: ATOVAQUONE SUSP 750MG/5ML 210 ML BTL PO SCH (08:18)
[2021-02-20] MEDS: NYSTATIN 100,000 UNITS/GM TOPICAL PWD 15 GM TOP SCH (08:18)
[2021-02-20] MEDS: POTASSIUM CHLORIDE 10 MEQ SR TABLET PO SCH (08:18)
[2021-02-20] MEDS: SPIRONOLACTONE 25 MG TAB PO SCH (08:18)
[2021-02-20] MEDS: DOCUSATE SODIUM 100MG CAPSULE PO SCH (08:18)
--- NOTE | 2021-02-20 13:22 | DS.PDOC ---
Discharge Summary General Date of Admission February 13, 2021 at 15:45 Date of Discharge 02/20/21 Attending Physician: Kaity Jose MD Discharge Summary HISTORY OF PRESENT ILLNESS: 70 year old male originally presented to [facility] for several day history of worsening shortness of breath. He also notes worsening dry cough. He also described excess flatulence. He denied chest pain, dizziness, abdominal pain, nausea, vomiting or diarrhea. Denies any sick contacts or recent travel. On examination at [facility], patient only complaints of shortness of breath, and requesting for something to drink. CT chest at [facility] showed possible atypical pneumonia. Respiratory panel was negative. BNP 3200, WBC 23, creatinine 1.68. He was recently admitted at [facility] for similar symptoms, treated with high dose steroids and antibiotics. He was ultimately transferred to [facility] for hypotension/was on pressers, and hypoxic respiratory failure. 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 He was started on IV steroids both for suspicion for adrenal insufficiency with hypotension and also for exacerbation of underlying lung disease. He also was diuresed and evaluated by pulmonary service who started him on both spironolactone and lasix. He diuresed nicely, BNP improved from 3200 to 880. Troponin remained wnl. BP improved with IV steroids and pressors were tapered off early. No sputum cx was ever able to be given but suspicion, again because of frequent steroid use, was for PCP pneumonia as well. LDH high, persistent infiltrate on CXR seen. He was started on atovaquone along with ceftriaxone. He was transitioned to PO levofloxacin and eventually to Po prednisone, maintaining BP nicely. He gradually was weaned off O2 both at rest and with ambulation. Patient's potassium was an issue with diuresis and he needed extra supplemen tation than normal. By 02/20/21 patient was much improved. He was continuing steroid taper : 40 mg Po x 5 days, 30 mg PO x 5 days, 20 mg PO until is seen by pulmonary here locally. Discussed with Dr. Issa. patient no longer wants to follow with [place] services and will f/u with pulmonary in [place]. Per pulmonary, may not see significant improvement in imaging for 4-6 weeks. He is to also continue atovaquone at discharge until he is seen again by pulmonary, who will call him with appointment. He had no other complaints at discharge. PAST MEDICAL HISTORY: Hx of hypoxemic respiratory failure chronic Idiopathic pulmonary hemosiderosis Chronic kidney disease stage III with a baseline creatinine of approximately 1.6-1.7 Hypertension Chronic atrial fibrillation Obstructive sleep apnea (on CPAP) Hiatal hernia GERD Anemia of chronic disease PTSD History of manic depression Hypokalemia HFpEF PAST SURGICAL HISTORY: Right lung biopsy Right middle finger amputation Lens implant History of bronchoscopy, and previously had chest tube placement. SOCIAL HISTORY: He is a of the [place] and was exposed to agent orange. He quit smoking over 35 years ago. He does not drink. He does not use any illicit drugs. FAMILY HISTORY: Mother of pancreatic cancer, also had diabetes. Father had heart disease. One sister with ovarian cancer DISCHARGE MEDS: Please see below PHYSICAL EXAMINATION: VITAL SIGNS: See below General: NAD, resting in bed. HEENT: Normocephalic, atraumatic. NECK: no JVD, Supple. Trachea is midline. CARDIAC: Regularly irregular rate, systolic murmur, S1S2 +, no rubs or gallops, no lower ext edema PULMONARY: mild crackles in b/l lower lung - much improved , no rhonchi, wheezing ABDOMEN: Obese, soft, nontender, and nondistended EXTREMITIES: No cyanosis, clubbing NEURO: CN 2-12 intact, no sensory or motor deficits, no focal deficits. PSYCH: mood and affect appropriate LABORATORY DATA: See below. MICROBIOLOGY: Please see below. IMAGING: Repeat CXR 02/17/21: Similar to last on file, no new findings CXR 02/15/21: Suspect right upper lobe infiltrate. Vascular congestion and prominent interstitial markings again noted. Echocardiogram: EF 60-65% Study is of fair technical quality, underlying atrial fibrillation with controlled rate. Normal LV size with grossly preserved LV systolic function. Dilated hypokinetic right ventricle. Severe biatrial enlargement. Prominent aortic sclerosis with trace insufficiency and unknown degree of stenosis based on 2D imaging, though I do not believe there is the likelihood ofsevere aortic stenosis. Trace mitral insufficiency. Mild tricuspid insufficiency. 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 -did well with walking test and does not require O2 with ambulation or at rest currently -D/alexandro IV steroids 02/18/21, c/w prednisone taper at discharge : 40 mg Po x 5 days, 30 mg PO x 5 days, 20 mg PO until is seen by pulmonary here locally. Discussed with Dr. Issa. patient no longer wants to [place] and will f/u with pulmonary in [place]. HFpEF with resolved exacerbation-improved -BNP 3200--> 880's . Still net negative since admission -Trop neg -Neg fluid balance since admission -Echo and repeat CXR above -C/w lasix, spironolactone, BB with holding parameters, recommend continuing 2 gm sodium diet ? CAP vs. PCP PNA -Procalcitonin much improved. -With hx of frequent steroid use and CXR, concern remained for PCP PNA -WBC wnl, afebrile -C/w atovaquone, PO levofloxacin at discharge -Sputum cx unable to be provided Hypotension likely 2/2 to adrenal insufficiency- improved with steroids -BP stable -Has received many doses of high dose steroids from treatment of ILD over past several hospitalizations, stopped IV steroids 02/18/21 -Hx of HTN -Watch closely while on BB low dose BID, c/w PO prednisone taper Hypokalemia, chronic likely worsened here 2/2 to diuretic use -K 3.8 today -C/w KCl supplementation at discharge, spironolactone CKD stage 3 -Cr wnl today -Daily labs Chronic atrial fibrillation -Currently rate controlled, A/C with xarelto BPH -C/w terazosin, proscar Depression - continue wellbutrin, zoloft DM -BS stable -Carb consistent diet -For now keep glipizide LAKESHIA -CPAP DLP - zocor GERD - prilosec Anemia of chronic disease -Stable -Daily CBC DVT px -xarelto DISPOSITION: D/c home today with f/[place] He is advised to f/u with PCP after discharge. TIME SPENT ON DISCHARGE: 35 minutes. Vital Signs/I&Os Vital Signs Date Time Temp Pulse Resp B/P (MAP) Pulse Ox O2 Delivery O2 Flow Rate FiO2 02/20/21 08:16 65 117/59 02/20/21 08:00 97.2 16 96 Room Air 02/17/21 16:00 1.0 I&O- Last 24 Hours up to 6 AM 02/20/21 06:00 Intake Total 1675 ml Output Total 200 ml Balance 1475 ml Laboratory Data Labs 24H Laboratory Tests 2 02/19/21 21:07: Bedside Glucose (Misc Panel) 112H 02/20/21 05:17: Nucleated Red Blood Cells % (auto) 0.0, Anion Gap 5L, Glomerular Filtration Rate 58.5, Calcium Level 8.2L, Total Bilirubin 0.3, Aspartate Amino Transf (AST/SGOT) 8, Alanine Aminotransferase (ALT/SGPT) 18, Alkaline Phosphatase 61, Total Protein 5.3L, Albumin 2.7L, Albumin/Globulin Ratio 1.0 CBC/BMP Laboratory Tests 02/20/21 05:17 FSBS Laboratory Tests Test 02/19/21 21:07 Range/Units Bedside Glucose (Misc Panel) 112 83-110 MG/DL Discharge Medications Scheduled Ascorbic Acid (Vitamin C) 250 Mg Tablet, 250 MG PO DAILY, (Reported) Atovaquone (Atovaquone) 750 Mg/5 Ml Oral.susp, 1,500 MG PO DAILY Bupropion Hcl (Bupropion HCl Sr) 150 Mg Tab, 150 MG PO DAILY, (Reported) Cholecalciferol (Vitamin D3) (Vitamin D3) 25 Mcg Tablet, 25 MCG PO DAILY, (Reported) Docusate Sodium (Docusate Sodium) 100 Mg Cap, 200 MG PO BID, (Reported) Ferrous Gluconate (Ferrous Gluconate) 324 Mg Tab, 648 MG PO BID, (Reported) Finasteride (Finasteride) 5 Mg Tab, 5 MG PO DAILY, (Reported) Furosemide (Furosemide) 20 Mg Tablet, 20 MG PO DAILY Glipizide (Glipizide) 5 Mg Tab, 2.5 MG PO DAILY, (Reported) TAKES BEFORE BREAKFAST Levofloxacin (Levofloxacin) 750 Mg Tablet, 750 MG PO DAILY@06 Melatonin (Melatonin) 5 Mg Tablet, 5 MG PO QHS, (Reported) Metoprolol Tartrate (Metoprolol Tartrate) 25 Mg Tab, 12.5 MG PO BID, (Reported) Omeprazole (Omeprazole) 20 Mg Tab, 40 MG PO DAILY, (Reported) Potassium Chloride (Klor-Con M10) 10 Meq Tab.er.prt, 30 MEQ PO DAILY Prednisone (Prednisone) 20 Mg Tablet, 40 MG PO DAILY Prednisone taper: 40 mg Po x 5 days, 30 mg PO x 5 days, 20 mg x 20 days. Rivaroxaban (Xarelto) 15 Mg Tablet, 15 MG PO QHS, (Reported) Sertraline Hcl (Zoloft) 100 Mg Tablet, 200 MG PO DAILY, (Reported) Simvastatin (Zocor) 80 Mg Tablet, 40 MG PO QHS, (Reported) Spironolactone (Aldactone) 25 Mg Tablet, 25 MG PO QAM Terazosin HCl (Terazosin HCl) 5 Mg Capsule, 5 MG PO QHS, (Reported) Scheduled PRN Cetirizine HCl (Cetirizine HCl) 10 Mg Tablet, 10 MG PO DAILY PRN for ALLERGIES, (Reported) Clotrimazole (Clotrimazole) 1% 30GM Cream..g., 1 DOSE TOP BID PRN for RASH, (Reported) APPLIES TO GROIN AND LEGS NEEDED FOR YEAST INFECTION Simethicone (Simethicone) 80 Mg Tab.chew, 160 MG PO ACHS PRN for GAS PAIN, (Reported) Allergies Coded Allergies: amlodipine (Verified Allergy, Unknown, 04/27/19) atenolol (Verified Allergy, Unknown, 04/27/19) albuterol (Verified Adverse Reaction, Mild, increased HR, 04/01/20) Kaity Jose MD February 20, 2021 13:22
== END 2021-02-20 11:44 | disposition home or self-care (01) | DRG 193 ==
LOC: M ICU 15:45 → M PCU 02-14 22:46
PROVIDERS: ADMIT General Practice; ATTEND Internal Medicine
DX: J18.9 Pneumonia, unspecified organism (principal); J96.01 Acute respiratory failure with hypoxia; J84.03 Idiopathic pulmonary hemosiderosis; I48.20 Chronic atrial fibrillation, unspecified; F33.9 Major depressive disorder, recurrent, unspecified; I50.32 Chronic diastolic (congestive) heart failure; I13.0 Hypertensive heart and chronic kidney disease with heart failure and stage 1 through stage 4 chronic kidney disease, or unspecified chronic kidney disease; E27.40 Unspecified adrenocortical insufficiency; B59 Pneumocystosis; E83.19 Other disorders of iron metabolism; N18.30 Chronic kidney disease, stage 3 unspecified; G47.33 Obstructive sleep apnea (adult) (pediatric); Z66 Do not resuscitate; K44.9 Diaphragmatic hernia without obstruction or gangrene; F43.10 Post-traumatic stress disorder, unspecified; K21.9 Gastro-esophageal reflux disease without esophagitis; I95.89 Other hypotension; D63.1 Anemia in chronic kidney disease; E87.6 Hypokalemia; E11.22 Type 2 diabetes mellitus with diabetic chronic kidney disease; E78.5 Hyperlipidemia, unspecified; N40.0 Benign prostatic hyperplasia without lower urinary tract symptoms; Z79.01 Long term (current) use of anticoagulants; Z79.84 Long term (current) use of oral hypoglycemic drugs; Z79.899 Other long term (current) drug therapy; Z88.8 Allergy status to other drugs, medicaments and biological substances; Z87.891 Personal history of nicotine dependence

== ENCOUNTER 2021-02-26 14:33 | Inpatient (IN) | payer OTHER ==
[~2021-02-26] VITALS: Ht 175.3 cm; Wt 97.5 kg
[~2021-02-26 14:33] MED LIST changes: +ALDA25TA2 PO; +ATOV5SUS PO; +LEVO750T13 PO; +MELA5TAB36 PO; +POTA10TA17 PO
--- NOTE | 2021-02-26 16:35 | REP ---
INDICATION: DYSPNEA/COUGH COMPARISON: 02/17/2021 TECHNIQUE: Portable AP view of the chest FINDINGS: Diffuse bilateral alveolar infiltrates and consolidations appear to have progressed since prior examination. Underlying cardiomegaly noted. No obvious effusion. No pneumothorax. Skeletal structures intact. IMPRESSION: Moderate to significant bilateral multifocal infiltrates and lower lobe consolidations increased from prior examination. <Electronically signed by Abraham Randolph > 02/26/21 1311
[2021-02-26 16:38] LABS: BASO % 0.3 % (0.0-1.0); EOS % 0.3 % (0.0-3.0); HEMATOCRIT 33.2 % (42.0-52.0); HEMOGLOBIN 10.2 g/dl (13.5-17.5); LYMPH # 0.5 10^3/uL (1.5-5.0); LYMPH % 3.8 % (24.0-44.0); MEAN CORPUSCULAR HEMOGLOBIN 24.5 pg (27.0-33.0); MEAN CORPUSCULAR HGB CONC 30.7 g/dl (32.0-36.5); MEAN CORPUSCULAR VOLUME 79.6 fl (80.0-96.0); MONO # 0.6 10^3/uL (0.0-0.8); MONO % 5.2 % (2.0-8.0); NEUTROPHILS # 10.7 10^3/uL (1.5-8.5); NEUTROPHILS % 89.1 % (36.0-66.0); PLATELET COUNT, AUTOMATED 179 10^3/uL (150-450); RED BLOOD COUNT 4.17 10^6/uL (4.30-6.10)
[2021-02-26 17:14] LABS: ALBUMIN 2.7 GM/DL (3.2-5.2); ALT/SGPT 12 U/L (12-78); BILIRUBIN,DIRECT 0.3 MG/DL (0.0-0.2); BILIRUBIN,TOTAL 1.1 MG/DL (0.2-1.0); BLOOD UREA NITROGEN 29 MG/DL (7-18); CALCIUM LEVEL 8.1 MG/DL (8.8-10.2); CARBON DIOXIDE LEVEL 23 MEQ/L (21-32); CHLORIDE LEVEL 111 MEQ/L (98-107); CK-MB VALUE MASS 1.3 NG/ML (<3.6); CPK CREATINE PHOSPHOKINASE 22 U/L (39-308); GLOMERULAR FILTRATION RATE 53.2 (>42); GLUCOSE, FASTING 153 MG/DL (70-100); MB/CK RELATIVE INDEX 5.91 (< OR =4); POTASSIUM SERUM 4.3 MEQ/L (3.5-5.1); SODIUM LEVEL 143 MEQ/L (136-145); TOTAL PROTEIN 5.2 GM/DL (6.4-8.2); TROPONIN I < 0.02 NG/ML (< 0.10)
[2021-02-26 17:37] LABS: VENOUS BASE EXCESS -1.3 (-2.0-2.0); VENOUS O2 SATURATION 97.4 % (60.0-80.0); VENOUS PARTIAL PRESSURE CO2 27.8 mmHg (38.0-50.0); VENOUS PARTIAL PRESSURE O2 92.3 mmHg (30.0-50.0); VENOUS PH 7.497 UNITS (7.330-7.430); VENOUS STANDARD HCO3 23.4 MEQ/L; VENOUS TOTAL CO2 21.9 MEQ/L (24.0-28.0)
[2021-02-26] MEDS ORDERED: cefTRIAXone SOD 2 GM in D5W MINI-BAG PLUS 50 ML IV ONE (17:45)
[2021-02-26] MEDS ORDERED: ATOVAQUONE SUSP 750MG/5ML 210 ML BTL PO ONE (18:00)
[2021-02-26 18:06] LABS: ALBUMIN 2.7 GM/DL (3.2-5.2); ALT/SGPT 9 U/L (12-78); BILIRUBIN,DIRECT 0.3 MG/DL (0.0-0.2); BILIRUBIN,TOTAL 1.1 MG/DL (0.2-1.0); NT-PRO BNP 2520 PG/ML (<125); TOTAL PROTEIN 5.2 GM/DL (6.4-8.2)
[2021-02-26] MEDS ORDERED: GLUCAGON INJ 1MG VIAL SC PRN (18:25)
[2021-02-26] MEDS ORDERED: GLUCOSE 4GM CHEW TABLET PO PRN (18:25)
[2021-02-26] MEDS ORDERED: DEXTROSE 50% 50 ML SYRINGE IV PRN (18:25)
[2021-02-26] MEDS ORDERED: ACETAMINOPHEN TAB 650MG DOSE (2X325MG) PO PRN (18:25)
[2021-02-26 18:30] LABS: RSV AMPLIFICATION NEGATIVE (NEGATIVE)
--- NOTE | 2021-02-26 18:40 | HPEPDOC ---
General Date of Admission 02/26/21 Date of Service: February 26, 2021 Chief Complaint The patient is a 70-year-old male admitted with a reason for visit of SOB. Source: Patient Exam Limitations: No limitations Severity: Moderate History of Present Illness Patient is 70 years old male with past history of atrial fibrillation on anticoa gulation, LAKESHIA on CPAP, GERD, anemia, heart failure with preserved EF, hypertension, CKD, 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 Of note patient was recently discharged from the hospital, however he was not able to pay for medication and he didn't take atovaquone which was recommended on discharge. Patient was found to have multifactorial acute respiratory failure secondary to pulmonary hemosiderosis, decompensated diastolic CHF, community-acquired pneumonia and questionable PCP infection due to frequent steroids use. Patient received ceftriaxone with atovaquone. Patient reported that after discharge he continues to have shortness of breath which became progressively worse and generalized weakness. Patient reported increased legs swelling Also he reports intermittent cough without sputum production. He denied chest pain, dizziness, abdominal pain, nausea, vomiting or diarrhea. Denies any sick contacts or recent travel. In ER patient was found to have leukocytosis of 12, hemoglobin 10.2, lactic acid 1.4, negative troponin, creatinine 1.4, BNP 2500, chest x-ray showed Moderate to significant bilateral multifocal infiltrates and lower lobe consolidations increased from prior examination Home Medications Scheduled Ascorbic Acid (Vitamin C) 250 Mg Tablet, 250 MG PO DAILY, (Reported) Atovaquone (Atovaquone) 750 Mg/5 Ml Oral.susp, 1,500 MG PO DAILY Bupropion Hcl (Bupropion HCl Sr) 150 Mg Tab, 150 MG PO DAILY, (Reported) Cholecalciferol (Vitamin D3) (Vitamin D3) 25 Mcg Tablet, 25 MCG PO DAILY, (Reported) Docusate Sodium (Docusate Sodium) 100 Mg Cap, 200 MG PO BID, (Reported) Ferrous Gluconate (Ferrous Gluconate) 324 Mg Tab, 648 MG PO BID, (Reported) Finasteride (Finasteride) 5 Mg Tab, 5 MG PO DAILY, (Reported) Furosemide (Furosemide) 20 Mg Tablet, 20 MG PO DAILY Glipizide (Glipizide) 5 Mg Tab, 2.5 MG PO DAILY, (Reported) TAKES BEFORE BREAKFAST Melatonin (Melatonin) 5 Mg Tablet, 5 MG PO QHS, (Reported) Metoprolol Tartrate (Metoprolol Tartrate) 25 Mg Tab, 12.5 MG PO BID, (Reported) Omeprazole (Omeprazole) 20 Mg Tab, 40 MG PO DAILY, (Reported) Potassium Chloride (Klor-Con M10) 10 Meq Tab.er.prt, 30 MEQ PO DAILY Prednisone (Prednisone) 20 Mg Tablet, 40 MG PO DAILY Prednisone taper: 40 mg Po x 5 days, 30 mg PO x 5 days, 20 mg x 20 days. Rivaroxaban (Xarelto) 15 Mg Tablet, 15 MG PO QHS, (Reported) Sertraline Hcl (Zoloft) 100 Mg Tablet, 200 MG PO DAILY, (Reported) Simvastatin (Zocor) 80 Mg Tablet, 40 MG PO QHS, (Reported) Spironolactone (Aldactone) 25 Mg Tablet, 25 MG PO QAM Terazosin HCl (Terazosin HCl) 5 Mg Capsule, 5 MG PO QHS, (Reported) Scheduled PRN Cetirizine HCl (Cetirizine HCl) 10 Mg Tablet, 10 MG PO DAILY PRN for ALLERGIES, (Reported) Clotrimazole (Clotrimazole) 1% 30GM Cream..g., 1 DOSE TOP BID PRN for RASH, (Reported) APPLIES TO GROIN AND LEGS NEEDED FOR YEAST INFECTION Simethicone (Simethicone) 80 Mg Tab.chew, 160 MG PO ACHS PRN for GAS PAIN, (Reported) Allergies Coded Allergies: amlodipine (Verified Allergy, Unknown, 04/27/19) atenolol (Verified Allergy, Unknown, 04/27/19) albuterol (Verified Adverse Reaction, Mild, increased HR, 04/01/20) Past Medical History Medical History 1. 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 2. CKD. a baseline creatinine of approximately 1.6-1.7 3. Hypertension. 4. Atrial fibrillation on anticoagulation. 5. LAKESHIA on CPAP. 6. Hiatal hernia. 7. GERD. 8. Anemia of chronic disease. 9. PTSD. 10. Manic depression. 11. Heart failure with preserved EF. 12. Pulmonary hypertension. Family History Mother with history of pancreatic cancer. Father with history of CAD. Sister with history of ovarian cancer. Social History * Smoker: former Smoker Alcohol: Denies Drugs: denies A-FIB/CHADSVASC A-FIB History Current/History of A-Fib/PAF?: Yes Current PO Anticoag Therapy: Yes Review of Systems Constitutional: Reports: Malaise, Fatigue Eyes: Denies: Pain ENT: Denies: Head Aches Skin: Denies: Rash Pulmonary: Reports: Dyspnea, Cough Cardiovascular: Denies: Chest Pain, Palpitations Gastrointestinal: Denies: Nausea Genitourinary: Denies: Dysuria Hematologic: Denies: Bruising Endocrine: Denies: Polydipsia Musculoskeletal: Denies: Neck Pain Neurological: Denies: Weakness Psych: Reports: Mood Normal Physical Examination General Exam: Positive: Alert, Cooperative Eye Exam: Positive: PERRLA ENT Exam: Positive: Atraumatic Neck Exam: Positive: Supple; Negative: JVD Chest Exam: Positive: Diminished Heart Exam: Positive: Irregular Rhythm Telemetry: Positive: Atrial fibrillation Abdomen Exam: Positive: Normal bowel sounds Extremity Exam: Negative: Clubbing Skin Exam: Positive: Nl turgor and temperature Neuro Exam: Positive: Strength at 5/5 X4 ext Psych Exam: Positive: Mental status NL Vital Signs Vital Signs Date Time Temp Pulse Resp B/P (MAP) Pulse Ox O2 Delivery O2 Flow Rate FiO2 02/26/21 16:30 87 18 96/56 (69) 92 Nasal Cannula 2.0 02/26/21 15:00 98.2 Laboratory Data Labs 24H Laboratory Tests 2 02/26/21 16:20: Immature Granulocyte % (Auto) 1.3, Neutrophils (%) (Auto) 89.1H, Lymphocytes (%) (Auto) 3.8L, Monocytes (%) (Auto) 5.2, Eosinophils (%) (Auto) 0.3, Basophils (%) (Auto) 0.3, Neutrophils # (Auto) 10.7H, Lymphocytes # (Auto) 0.5L, Monocytes # (Auto) 0.6, Eosinophils # (Auto) 0.0, Basophils # (Auto) 0.0, Nucleated Red Blood Cells % (auto) 0.0, Anion Gap 9, Glomerular Filtration Rate 53.2, Calcium Level 8.1L, Total Bilirubin 1.1H, Direct Bilirubin 0.3H, Aspartate Amino Transf (AST/SGOT) 22, Alanine Aminotransferase (ALT/SGPT) 12, Alkaline Phosphatase 63, Total Creatine Kinase 22L, Creatine Kinase MB 1.3, Creatine Kinase MB Relative Index 5.91H, Troponin I < 0.02, Total Protein 5.2L, Albumin 2.7L, Albumin/Globulin Ratio 1.1 02/26/21 17:18: Total Bilirubin 1.1H, Direct Bilirubin 0.3H, Aspartate Amino Transf (AST/SGOT) 18, Alanine Aminotransferase (ALT/SGPT) 9L, Alkaline Phosphatase 62, Total Protein 5.2L, Albumin 2.7L, Albumin/Globulin Ratio 1.1, Blood Gas Bicarbonate Standard 23.4, Venous Blood pH 7.497H, Venous Blood Partial Pressure CO2 27.8L, Venous Blood Partial Pressure O2 92.3H, Venous Blood Total Carbon Dioxide 21.9L, Venous Blood HCO3 21.0L, Venous Blood Oxygen Saturation 97.4H, Venous Blood Base Excess -1.3, Lactic Acid Level 1.4, [id number]-[id number]-Type Natriuretic Peptide 2520H 02/26/21 17:35: CBC/BMP Laboratory Tests 02/26/21 16:20 Microbiology Microbiology 02/26/21 Blood Culture, Received Pending 02/26/21 Blood Culture, Received Pending Assessment/Plan Patient is 70 years old male with past history of atrial fibrillation on anticoagulation, LAKESHIA on CPAP, GERD, anemia, heart failure with preserved EF, hypertension, CKD, 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 Of note patient was recently discharged from the hospital, however he was not able to pay for medication and he didn't take atovaquone which was recommended on discharge. Patient was found to have multifactorial acute respiratory failure secondary to pulmonary hemosiderosis, decompensated diastolic CHF, community-acquired pneumonia and questionable PCP infection due to frequent steroids use. Patient received ceftriaxone with atovaquone. Patient reported that after discharge he continues to have shortness of breath which became progressively worse and generalized weakness. Patient reported increased legs swelling Also he reports intermittent cough without sputum production. He denied chest pain, dizziness, abdominal pain, nausea, vomiting or diarrhea. Denies any sick contacts or recent travel. In ER patient was found to have leukocytosis of 12, hemoglobin 10.2, lactic acid 1.4, negative troponin, creatinine 1.4, BNP 2500, chest x-ray showed Moderate to significant bilateral multifocal infiltrates and lower lobe consolidations increased from prior examination Problems (1) Acute respiratory failure with hypoxia Status: Acute Problem Text: Patient currently requires 2 L of oxygen Multifactorial. Differential diagnosis includes HCAP, flare of his idiopathic pulmonary hemosiderosis, PCP pneumonia, acute diastolic CHF exacerbation Patient was not compliant to medication due to insurance issues Continue oxygen supplementation Proceed with chest CT scan (2) Chronic atrial fibrillation Status: Chronic Problem Text: Heart rate under control Continue Xarelto and metoprolol (3) CHF exacerbation Status: Acute Problem Text: Diastolic CHF exacerbation Echo was done on the previous admission around 1 week ago and showed EF 60-65% Study is of fair technical quality, underlying atrial fibrillation with controlled rate. Normal LV size with grossly preserved LV systolic function. Dilated hypokinetic right ventricle. Severe biatrial enlargement. Mild pulmonary hypertension Prominent aortic sclerosis with trace insufficiency and unknown degree of stenosis BNP elevated to 2500 Will start Lasix 40 mg IV twice a day Cardiac/diabetes diet Fluid restriction (4) Pneumonia Status: Acute Problem Text: Multifactorial. 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 this stay, recently admitted in 01/2021 for flare of IPH Incentive spirometry (6) BPH (benign prostatic hyperplasia) Status: Chronic Problem Text: Continue finasteride (7) Chronic anemia Status: Chronic Problem Text: Continue iron supplementation (8) CKD (chronic kidney disease), stage III Status: Chronic Problem Text: Creatinine at baseline Continue to monitor (9) Diabetes mellitus Status: Chronic Problem Text: Diabetes diet Insulin sliding scale (10) LAKESHIA (obstructive sleep apnea) Status: Chronic Problem Text: CPAP overnight Plan / VTE VTE Prophylaxis Ordered?: Yes JUAN CANADA DO February 26, 2021 18:40
[2021-02-26] MEDS ORDERED: CLOTRIMAZOLE 1% TOPICAL CREAM 30GM TOP PRN (18:50)
[2021-02-26] MEDS ORDERED: SIMETHICONE 80MG CHEW TAB PO PRN (18:50)
[2021-02-26] MEDS ORDERED: CETIRIZINE (ZyrTEC) 10 MG TAB PO PRN (18:50)
--- NOTE | 2021-02-26 18:50 | REPVR ---
PROCEDURE INFORMATION: Exam: CT Chest Without Contrast; Diagnostic Exam date and time: 02/26/2021 6:17 PM Age: 70 years old Clinical indication: Other: Pnemonia; Additional info: Pneumonia TECHNIQUE: Imaging protocol: Diagnostic computed tomography of the chest without contrast. 3D rendering (Not supervised by radiologist): MIP and/or 3D reconstructed images were created by the technologist. Radiation optimization: All CT scans at this facility use at least one of these dose optimization techniques: automated exposure control; mA and/or kV adjustment per patient size (includes targeted exams where dose is matched to clinical indication); or iterative reconstruction. COMPARISON: CT Chest without contrast 01/30/2021 6:27 PM FINDINGS: Lungs: Bilateral apical pleuroparenchymal scarring. Multiple bilateral ground-glass, semi-solid and solid pulmonary parenchymal infiltrates. Findings most consistent with multifocal pneumonitis. Findings are grossly stable in comparison prior study of 01/30/2021. Linear calcifications possibly related to scarring demonstrated in the right upper lobe. Calcified granuloma right upper lobe. Pleural spaces: Focal pleural thickening and loculated pleural fluid demonstrated in the right upper lung zone. Heart: There is severe atherosclerotic calcification of the coronary arteries. Mediastinal space: A small sliding hiatal hernia is present. Pulmonary arteries: There is enlargement of the central pulmonary arteries, findings which can be associated with pulmonary arterial hypertension which should be correlated clinically. Aorta: There is mild atherosclerosis in the thoracic aorta. There is fusiform dilatation of the ascending thoracic aorta which measures 4.1 cm. maximally. There is no saccular component. Lymph nodes: Mediastinal lymphadenopathy likely postinflammatory. Bones/joints: The spine demonstrates mild degenerative changes. Soft tissues: Unremarkable. IMPRESSION: 1. Multiple bilateral ground-glass, semi-solid and solid pulmonary parenchymal infiltrates. Findings most consistent with multifocal pneumonitis. Findings are grossly stable in comparison prior study of 01/30/2021. 2. There is fusiform dilatation of the ascending thoracic aorta which measures 4.1 cm. maximally. There is no saccular component. 3. There is enlargement of the central pulmonary arteries, findings which can be associated with pulmonary arterial hypertension which should be correlated clinically. 4. A small sliding hiatal hernia is present. 5. Focal pleural thickening and loculated pleural fluid demonstrated in the right upper lung zone. Electronically signed by: Baldo Parisi On 02/26/2021 18:49:52 PM
[2021-02-26 20:00] VITALS: BP 118/63
[2021-02-26] MEDS ORDERED: predniSONE 20 MG TAB PO ONE (20:00)
[2021-02-26] MEDS: HumaLOG INSULIN (NovoLOG) PER UNIT SC SCH (20:55)
[2021-02-26] MEDS: FERROUS GLUCONATE 324 MG TAB PO SCH (21:05)
[2021-02-26] MEDS: RIVAROXABAN 15 MG TAB (XARELTO) PO SCH (21:05)
[2021-02-26] MEDS: DOCUSATE SODIUM 100MG CAPSULE PO SCH (21:05)
[2021-02-26] MEDS: DOXYCYCLINE HYCLATE 100 MG in D5W MINI-BAG PLUS 100 ML IV SCH (21:06)
[2021-02-26] MEDS: SIMVASTATIN 40 MG TAB PO SCH (21:06)
[2021-02-26] MEDS: METOPROLOL TART 12.5 MG PER 1/2 TAB PO SCH (21:09)
[2021-02-26] MEDS: FUROSEMIDE 40MG/4ML VIAL (J1940) IV SCH (21:14)
[2021-02-26] MEDS: TERAZOSIN 5MG CAPSULE PO SCH (22:13)
[2021-02-27 05:43] LABS: HEMOGLOBIN 9.7 g/dl (13.5-17.5); MEAN CORPUSCULAR HEMOGLOBIN 24.6 pg (27.0-33.0); MEAN CORPUSCULAR HGB CONC 31.3 g/dl (32.0-36.5); MEAN CORPUSCULAR VOLUME 78.5 fl (80.0-96.0); PLATELET COUNT, AUTOMATED 170 10^3/uL (150-450); RED BLOOD COUNT 3.95 10^6/uL (4.30-6.10); WHITE BLOOD COUNT 8.8 10^3/uL (4.0-10.0)
[2021-02-27 06:00] VITALS: BP 112/62
[2021-02-27 06:16] LABS: ALBUMIN 2.5 GM/DL (3.2-5.2); BILIRUBIN,TOTAL 0.7 MG/DL (0.2-1.0); CALCIUM LEVEL 8.1 MG/DL (8.8-10.2); CREATININE FOR GFR 1.68 MG/DL (0.70-1.30); GLOMERULAR FILTRATION RATE 43.1 (>42); MAGNESIUM LEVEL 2.1 MG/DL (1.8-2.4); POTASSIUM SERUM 4.3 MEQ/L (3.5-5.1); TOTAL PROTEIN 5.1 GM/DL (6.4-8.2)
[2021-02-27] MEDS ORDERED: predniSONE 20 MG TAB PO SCH (09:00)
[2021-02-27] MEDS: METOPROLOL TART 12.5 MG PER 1/2 TAB PO SCH ×2 (09:00→20:51)
[2021-02-27] MEDS ORDERED: buPROPion **SR TABLET** (ZYBAN) 150MG PO SCH (09:00)
[2021-02-27] MEDS ORDERED: ENOXAPARIN 40MG/0.4ML SYRINGE (J1650 PER 10MG) SC SCH (09:00)
[2021-02-27] MEDS: FUROSEMIDE 40MG/4ML VIAL (J1940) IV SCH ×3 (09:00→16:43)
[2021-02-27] MEDS: HumaLOG INSULIN (NovoLOG) PER UNIT SC SCH ×4 (09:06→20:39)
[2021-02-27] MEDS: DOXYCYCLINE HYCLATE 100 MG in D5W MINI-BAG PLUS 100 ML IV SCH (09:06)
[2021-02-27] MEDS: ATOVAQUONE SUSP 750MG/5ML 210 ML BTL PO SCH (09:06)
[2021-02-27] MEDS: FINASTERIDE 5 MG TAB PO SCH (09:07)
[2021-02-27] MEDS: FERROUS GLUCONATE 324 MG TAB PO SCH ×2 (09:07→20:50)
[2021-02-27] MEDS: ASCORBIC ACID 250 MG TAB PO SCH (09:07)
[2021-02-27] MEDS: SERTRALINE 100 MG TAB PO SCH (09:07)
[2021-02-27] MEDS: POTASSIUM CHLORIDE 10 MEQ SR TABLET PO SCH (09:07)
[2021-02-27] MEDS: DOCUSATE SODIUM 100MG CAPSULE PO SCH ×2 (09:07→20:50)
[2021-02-27] MEDS: OMEPRAZOLE 20 MG CAP PO SCH (09:08)
--- NOTE | 2021-02-27 09:33 | ECGEPIP ---
[facility] - ED Test Date: 2021-02-26 Pat Name: CHETAN DONAHUE Department: Room: - Gender: Male Observer [employer]ing: Susan HAY : 1950 Requested By: Laine Noe Order Number: [id number] Reading MD: Laine Noe Measurements Intervals [place] Rate: 78 P: OK: QRS: -28 QRSD: 70 T: 1 QT: 366 QTc: 417 Interpretive Statements Atrial fibrillation Low voltage QRS NSTTW abnormalities Electronically Signed on 02-27-2021 9:32:48 EDT by Laine Noe
[2021-02-27] MEDS ORDERED: HYDROCORTISONE 10 MG TAB PO ONE (11:00)
[2021-02-27] MEDS: MIDODRINE 5 MG TAB PO SCH ×2 (11:20→16:43)
--- NOTE | 2021-02-27 11:22 | IPNPDOC ---
Text Note Date of Service The patient was seen on 02/27/21. NOTE Subjective: In the morning patient developed hypotension with blood pressure of 90/60. He denied any chest pain, palpitations, nausea or vomiting. 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 Of note patient was recently discharged from the hospital, however he was not able to pay for medication and she didn't take atovaquone which was recommended on discharge. Patient was found to have multifactorial acute respiratory failure secondary to pulmonary hemosiderosis, decompensated diastolic CHF, community-acquired pneumonia and questionable PCP infection due to frequent steroids use. Patient received ceftriaxone with atovaquone. Patient reported that after discharge he continues to have shortness of breath which became progressively worse and generalized weakness. Patient reported increased legs swelling Also he reports intermittent cough without sputum production. He denied chest pain, dizziness, abdominal pain, nausea, vomiting or diarrhea. Denies any sick contacts or recent travel. In ER patient was found to have leukocytosis of 12, hemoglobin 10.2, lactic acid 1.4, negative troponin, creatinine 1.4, BNP 2500, chest x-ray showed Moderate to significant bilateral multifocal infiltrates and lower lobe consolidations increased from prior examination Problems (1) Acute respiratory failure with hypoxia Patient currently requires 2 L of oxygen Most likely secondary to diastolic CHF exacerbation procalcitonin negative. I discontinued antibiotics. Patient afebrile Patient was not compliant to medication due to insurance issues Continue oxygen supplementation CT showed on 02/26: 1. Multiple bilateral ground-glass, semi-solid and solid pulmonary parenchymal infiltrates. Findings most consistent with multifocal pneumonitis. Findings are grossly stable in comparison prior study of 01/30/2021. 2. There is fusiform dilatation of the ascending thoracic aorta which measures 4.1 cm. maximally. There is no saccular component. 3. There is enlargement of the central pulmonary arteries, findings which can be associated with pulmonary arterial hypertension which should be correlated clinically. Ascending aortic aneurysm Follow-up with PCP in the outpatient settings for regular checkup Hypotension/adrenal insufficiency On previous admission patient was diagnosed with adrenal insufficiency secondary to prolonged course of steroids Will start midodrine, hydrocortisone and fludrocortisone Chronic atrial fibrillation Heart rate under control Continue Xarelto and metoprolol CHF exacerbation Diastolic CHF exacerbation Echo was done on the previous admission around 1 week ago and showed EF 60-65% Study is of fair technical quality, underlying atrial fibrillation with controlled rate. Normal LV size with grossly preserved LV systolic function. Dilated hypokinetic right ventricle. Severe biatrial enlargement. Mild pulmonary hypertension Prominent aortic sclerosis with trace insufficiency and unknown degree of stenosis BNP elevated to 2500 Continue Lasix 40 mg IV twice a day Cardiac/diabetes diet Fluid restriction Pneumonia Multifactorial. Differential diagnosis includes HCAP due to PCP, mycoplasma, chlamydia infection. 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 Continue to monitor blood glucose level LAKESHIA (obstructive sleep apnea) CPAP overnight VS,Fishbone, I+O VS, Fishbone, I+O Laboratory Tests 02/26/21 16:20 02/27/21 05:28 Vital Signs Date Time Temp Pulse Resp B/P (MAP) Pulse Ox O2 Delivery O2 Flow Rate FiO2 02/27/21 09:00 86 80/50 02/27/21 06:00 98.6 20 96 Nasal Cannula 2.0 I&O- Last 24 Hours up to 6 AM 02/27/21 06:00 Intake Total 870 ml Output Total 1600 ml Balance -730 ml JUAN CANADA DO February 27, 2021 11:22
[2021-02-27 14:00] VITALS: BP 99/62
--- NOTE | 2021-02-27 16:01 | MHIPNPDOC ---
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 Of note patient was recently discharged from the hospital, however he was not able to pay for medication and she didn't take atovaquone which was recommended on discharge. Patient was found to have multifactorial acute respiratory failure secondary to pulmonary hemosiderosis, decompensated diastolic CHF, community-acquired pneumonia and questionable PCP infection due to frequent steroids use. Patient received ceftriaxone with atovaquone. Patient reported that after discharge he continues to have shortness of breath which became progressively worse and generalized weakness. Patient reported increased legs swelling Also he reports intermittent cough without sputum production. He denied chest pain, dizziness, abdominal pain, nausea, vomiting or diarrhea. Denies any sick contacts or recent travel. In ER patient was found to have leukocytosis of 12, hemoglobin 10.2, lactic acid 1.4, negative troponin, creatinine 1.4, BNP 2500, chest x-ray showed Moderate to significant bilateral multifocal infiltrates and lower lobe consolidations increased from prior examination" VITAL SIGNS: See below. NEW TEST RESULTS: See below CURRENT MEDICATIONS: See below. MENTAL STATUS EXAMINATION: Patient is a 70-year old male, who is alert, dressed in hospital clothes, with good hygiene, wearing hospital gown, receiving Oxygen by nasal cannula, with good eye contact, pleasant. Speech: organized. Language skills are intact Thought processes including: linear and coherent. Thought content: negative for thought delusions, positive for guilty thoughts, anxious thoughts. She denies SI/HI at this time. Description of associations: intact Description of abnormal or psychotic thoughts: denies thought delusions, denies TAV hallucinations, not responding to internal stimuli. Judgment: fair at this time Insight: fair Orientation: x 3. Recent and remote memory: intact. Attention span and concentration: not easily distracted. Language: adequate, no abnormalities observed Fund of knowledge: average Mood: anxious, depressed Affect: he seems to be close to tears at times, he is anxious/sad DIAGNOSES: 1. . 2. . 3. . ASSESSMENT: The patient reports feeling very guilty because he had an angry outburst today. He said several times he doesn't know why he reacts this way, that his anger has caused him a lot of trouble through the years. He reports some symptoms of depression, including poor sleep, poor appetite, guilty thoughts, hopelessness. He denies manic symptoms and admits some trauma symptoms like nightmares, flashbacks and avoidance but he sys he doesn't experience these symptoms as often as he did in the past. He mentions this anger has caused too much grievance in his life, including marital problems because it certainly has taken a toll on his , whom he says, has dealt with it for years. He expresses frustration regarding his medical illnesses. In my opinion this could be in part hypervigilance caused by PTSD that has been triggered lately by stress. He is taking Bupropion that is an excellent antidepressant but it can increase anxiety in people who are prone to it or who are already anxious. I thin this medication should be reduced and I have discussed it with the patient but he seems to believe that when he started using it, he felt better. Maybe if felt him feel better, maybe it decreased his levels of depression but I think we should try to decrease it. I feel he needs a medication like Zyprexa or Seroquel in low doses. I see that his glucose levels have been elevated, so, we should consider that either one of those medications could cause an increase on glucose. His sodium levels at this time are in normal levels, so, I think we could start him on a low dose of Seroquel because this medication could lower his blood pressure. We could start 25 mgs PO TID and see how he responds. It can be sedating, so, he probably will be sleepy but this could be helpful, since he has not been sleeping well and this could be contributing to his irritable mood too. MANAGEMENT PLAN: 1. Recommend to start Seroquel 25 mgs PO TID. Monitor glucose, sodium levels and follow with ECG. 2. Recommend to decrease Bupropion SR to 100 mgs PO daily 3. Will f/u tomorrow TIME SPENT: 35 minutes. Vital Signs Vital Signs Date Time Temp Pulse Resp B/P (MAP) Pulse Ox O2 Delivery O2 Flow Rate FiO2 02/27/21 09:00 86 80/50 02/27/21 08:30 2.0 5/31/21 06:00 98.6 20 96 Nasal Cannula Laboratory Data 24H Labs Laboratory Tests 2 02/26/21 16:20: Immature Granulocyte % (Auto) 1.3, Neutrophils (%) (Auto) 89.1H, Lymphocytes (%) (Auto) 3.8L, Monocytes (%) (Auto) 5.2, Eosinophils (%) (Auto) 0.3, Basophils (%) (Auto) 0.3, Neutrophils # (Auto) 10.7H, Lymphocytes # (Auto) 0.5L, Monocytes # (Auto) 0.6, Eosinophils # (Auto) 0.0, Basophils # (Auto) 0.0, Nucleated Red Blood Cells % (auto) 0.0, Anion Gap 9, Glomerular Filtration Rate 53.2, Calcium Level 8.1L, Total Bilirubin 1.1H, Direct Bilirubin 0.3H, Aspartate Amino Transf (AST/SGOT) 22, Alanine Aminotransferase (ALT/SGPT) 12, Alkaline Phosphatase 63, Total Creatine Kinase 22L, Creatine Kinase MB 1.3, Creatine Kinase MB Relative Index 5.91H, Troponin I < 0.02, Total Protein 5.2L, Albumin 2.7L, Albumin/Globulin Ratio 1.1 02/26/21 17:18: Total Bilirubin 1.1H, Direct Bilirubin 0.3H, Aspartate Amino Transf (AST/SGOT) 18, Alanine Aminotransferase (ALT/SGPT) 9L, Alkaline Phosphatase 62, Total Protein 5.2L, Albumin 2.7L, Albumin/Globulin Ratio 1.1, Blood Gas Bicarbonate Standard 23.4, Venous Blood pH 7.497H, Venous Blood Partial Pressure CO2 27.8L, Venous Blood Partial Pressure O2 92.3H, Venous Blood Total Carbon Dioxide 21.9L, Venous Blood HCO3 21.0L, Venous Blood Oxygen Saturation 97.4H, Venous Blood Base Excess -1.3, Lactic Acid Level 1.4, UE-Ajk-Z-Type Natriuretic Peptide 2520H, Procalcitonin 0.10 02/26/21 17:35: Coronavirus (COVID-19)(PCR) NEGATIVE, Influenza Type A (RT-PCR) NEGATIVE, Influenza Type B (RT-PCR) NEGATIVE, Respiratory Syncytial Virus (PCR) NEGATIVE 02/26/21 20:49: Bedside Glucose (Misc Panel) 206H 02/27/21 05:28: Nucleated Red Blood Cells % (auto) 0.0, Anion Gap 9, Glomerular Filtration Rate 43.1, Calcium Level 8.1L, Magnesium Level 2.1, Total Bilirubin 0.7, Aspartate Amino Transf (AST/SGOT) 14, Alanine Aminotransferase (ALT/SGPT) 10L, Alkaline Phosphatase 63, Total Protein 5.1L, Albumin 2.5L, Albumin/Globulin Ratio 1.0 02/27/21 12:22: Bedside Glucose (Misc Panel) 154H CBC/BMP Laboratory Tests 02/26/21 16:20 02/27/21 05:28 Current Medications Current Medications Medications (Trade) Dose Ordered Sig/Pratima Route PRN Reason Start Time Stop Time Status Last Admin Dose Admin Acetaminophen (Tylenol Tab) 650 mg Q4H PRN PO PAIN OR FEVER 02/26/21 18:25 Ascorbic Acid (Vitamin C) 250 mg DAILY PO 02/27/21 09:00 02/27/21 09:07 Atovaquone (Mepron 750mg/ 5ml Suspension) 1,500 mg DAILY PO 02/27/21 09:00 02/27/21 09:06 Bupropion HCl (Zyban, Wellbutrin Sr) 150 mg DAILY PO 02/27/21 09:00 02/27/21 09:07 Ceftriaxone Sodium 1 gm/ Dextrose 50 ml @ 100 mls/hr Q24H IV 02/27/21 18:00 02/27/21 11:14 DC Cetirizine HCl (ZyrTEC) 10 mg DAILY PRN PO ALLERGIES 02/26/21 18:50 Clotrimazole (Lotrimin) 1 dose BID PRN TOP RASH 02/26/21 18:50 Dextrose (Dextrose 50%) 25 ml ASDIRECTED PRN IV SEE LABEL COMMENTS 02/26/21 18:25 Docusate Sodium (Colace) 200 mg BID PO 02/26/21 21:00 02/27/21 09:07 Doxycycline Hyclate 100 mg/ Dextrose 100 ml @ 100 mls/hr Q12H IV 02/26/21 20:00 02/27/21 11:14 DC 02/27/21 09:06 Enoxaparin Sodium (Lovenox) 40 mg DAILY SC 02/27/21 09:00 02/26/21 18:50 DC Ferrous Gluconate (Fergon) 648 mg BID PO 02/26/21 21:00 02/27/21 09:07 Finasteride (Proscar) 5 mg DAILY PO 02/27/21 09:00 02/27/21 09:07 Fludrocortisone Acetate (Florinef) 0.1 mg DAILY@1700 PO 02/27/21 17:00 Furosemide (LASIX injection) 40 mg BID@0900,1700 IV 02/26/21 17:00 02/26/21 21:14 Glucagon (Glucagon) 1 mg ASDIRECTED PRN SC SEE LABEL COMMENTS 02/26/21 18:25 Glucose (Glucose) 16 GM ASDIRECTED PRN PO SEE LABEL COMMENTS 02/26/21 18:25 Home Med (Med Rec Complete!) ASDIRECTED XX 02/26/21 18:45 02/26/21 18:50 DC Hydrocortisone (Cortef) 20 mg DAILY PO 02/28/21 09:00 Insulin Human Lispro (HumaLOG INSULIN) SEE PROTOCOL TABLE AC SC 02/27/21 07:30 02/27/21 09:06 Insulin Human Lispro (HumaLOG INSULIN) SEE PROTOCOL TABLE QHS SC 02/26/21 21:00 Metoprolol Tartrate (Lopressor) 12.5 mg BID PO 02/26/21 21:00 02/26/21 21:09 Midodrine (Proamatine) 5 mg 08,12,16 PO 02/27/21 12:00 02/27/21 11:20 Omeprazole (PriLOSEC) 40 mg DAILY PO 02/27/21 09:00 02/27/21 09:08 Potassium Chloride (Micro-K Extencaps) 30 meq DAILY PO 02/27/21 09:00 02/27/21 09:07 Prednisone (Deltasone) 40 mg DAILY PO 02/27/21 09:00 02/27/21 09:23 DC 02/27/21 09:07 Rivaroxaban (Xarelto) 15 mg QHS PO 02/26/21 21:00 02/26/21 21:05 Sertraline HCl (Zoloft) 200 mg DAILY PO 02/27/21 09:00 02/27/21 09:07 Simethicone (Mylicon) 160 mg ACHS PRN PO GAS PAIN 02/26/21 18:50 Simvastatin (Zocor) 40 mg QHS PO 02/26/21 21:00 02/26/21 21:06 Terazosin HCl (Hytrin) 5 mg QHS PO 02/26/21 21:00 02/26/21 22:13 Allergies Coded Allergies: amlodipine (Verified Allergy, Unknown, 04/27/19) atenolol (Verified Allergy, Unknown, 04/27/19) albuterol (Verified Adverse Reaction, Mild, increased HR, 04/01/20) CURTIS LÓPEZ MD February 27, 2021 16:01
[2021-02-27] MEDS: QUEtiapine FUMARATE 25 MG TAB PO SCH ×2 (16:43→20:51)
[2021-02-27] MEDS: FLUDROCORTISONE ACETATE 0.1 MG TAB PO SCH (16:43)
[2021-02-27] MEDS ORDERED: cefTRIAXone SOD 1 GM in D5W MINI-BAG PLUS 50 ML IV SCH (18:00)
[2021-02-27] MEDS: RIVAROXABAN 15 MG TAB (XARELTO) PO SCH (20:51)
[2021-02-27] MEDS: TERAZOSIN 5MG CAPSULE PO SCH (20:51)
[2021-02-27] MEDS: SIMVASTATIN 40 MG TAB PO SCH (20:51)
[2021-02-27 22:00] VITALS: BP 102/65
[2021-02-28 06:00] VITALS: BP 107/57
[2021-02-28] MEDS: HumaLOG INSULIN (NovoLOG) PER UNIT SC SCH ×4 (07:30→20:53)
[2021-02-28] MEDS ORDERED: HYDROCORTISONE 10 MG TAB PO SCH ×2 (09:00→17:00)
[2021-02-28] MEDS: ATOVAQUONE SUSP 750MG/5ML 210 ML BTL PO SCH (10:06)
[2021-02-28] MEDS: METOPROLOL TART 12.5 MG PER 1/2 TAB PO SCH ×2 (10:16→23:24)
[2021-02-28] MEDS: FUROSEMIDE 40MG/4ML VIAL (J1940) IV SCH (10:17)
[2021-02-28] MEDS: FINASTERIDE 5 MG TAB PO SCH (10:18)
[2021-02-28] MEDS: DOCUSATE SODIUM 100MG CAPSULE PO SCH ×2 (10:18→21:09)
[2021-02-28] MEDS: FERROUS GLUCONATE 324 MG TAB PO SCH ×2 (10:18→21:09)
[2021-02-28] MEDS: QUEtiapine FUMARATE 25 MG TAB PO SCH ×3 (10:18→21:09)
[2021-02-28] MEDS: ASCORBIC ACID 250 MG TAB PO SCH (10:18)
[2021-02-28] MEDS: POTASSIUM CHLORIDE 10 MEQ SR TABLET PO SCH (10:18)
[2021-02-28] MEDS: OMEPRAZOLE 20 MG CAP PO SCH (10:19)
[2021-02-28] MEDS: MIDODRINE 5 MG TAB PO SCH ×3 (10:19→16:39)
[2021-02-28] MEDS: buPROPion (WELLBUTRIN SR) 100 MG SR TAB PO SCH (10:19)
[2021-02-28] MEDS: SERTRALINE 100 MG TAB PO SCH (10:19)
[2021-02-28] MEDS ORDERED: HYDROCORTISONE 10 MG TAB PO ONE (10:45)
[2021-02-28 10:50] LABS: CORTISOL AM 14.4 UG/DL (4.3-22.4)
[2021-02-28 11:07] LABS: HIV 1&2 SCREEN CENTAUR NEGATIVE (NEGATIVE)
--- NOTE | 2021-02-28 11:07 | IPNPDOC ---
Text Note Date of Service The patient was seen on 02/28/21. NOTE Subjective: Patient stated that he feels about the same. Continues to have hypotension with blood pressure 90/60. 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 Of note patient was recently discharged from the hospital, however he was not able to pay for medication and she didn't take atovaquone which was recommended on discharge. Patient was found to have multifactorial acute respiratory failure secondary to pulmonary hemosiderosis, decompensated diastolic CHF, community-acquired pneumonia and questionable PCP infection due to frequent steroids use. Patient received ceftriaxone with atovaquone. Patient reported that after discharge he continues to have shortness of breath which became progressively worse and generalized weakness. Patient reported increased legs swelling Also he reports intermittent cough without sputum production. He denied chest pain, dizziness, abdominal pain, nausea, vomiting or diarrhea. Denies any sick contacts or recent travel. In ER patient was found to have leukocytosis of 12, hemoglobin 10.2, lactic acid 1.4, negative troponin, creatinine 1.4, BNP 2500, chest x-ray showed Moderate to significant bilateral multifocal infiltrates and lower lobe consolidations increased from prior examination Problems (1) Acute respiratory failure with hypoxia Patient currently requires 2 L of oxygen Most likely secondary to diastolic CHF exacerbation procalcitonin negative. I discontinued antibiotics. Patient afebrile Patient was not compliant to medication due to insurance issues Continue oxygen supplementation CT showed on 02/26: 1. Multiple bilateral ground-glass, semi-solid and solid pulmonary parenchymal infiltrates. Findings most consistent with multifocal pneumonitis. Findings are grossly stable in comparison prior study of 01/30/2021. 2. There is fusiform dilatation of the ascending thoracic aorta which measures 4.1 cm. maximally. There is no saccular component. 3. There is enlargement of the central pulmonary arteries, findings which can be associated with pulmonary arterial hypertension which should be correlated clinically. Ascending aortic aneurysm Follow-up with PCP in the outpatient settings for regular checkup Hypotension/adrenal insufficiency On previous admission patient was diagnosed with adrenal insufficiency secondary to prolonged course of steroids Continue midodrine, I increased the dose hydrocortisone to 40 mg in the morning, 20 mg at 5 PM and continue fludrocortisone 0.1 Chronic atrial fibrillation Heart rate under control Continue Xarelto and metoprolol CHF exacerbation Diastolic CHF exacerbation Echo was done on the previous admission around 1 week ago and showed EF 60-65% Study is of fair technical quality, underlying atrial fibrillation with controlled rate. Normal LV size with grossly preserved LV systolic function. Dilated hypokinetic right ventricle. Severe biatrial enlargement. Mild pulmonary hypertension Prominent aortic sclerosis with trace insufficiency and unknown degree of stenosis BNP elevated to 2500 Continue Lasix 40 mg IV twice a day. However due to hypotension Lasix today on hold Cardiac/diabetes diet Fluid restriction Pneumonia Multifactorial. Differential diagnosis includes HCAP due to PCP, mycoplasma, chlamydia infection. 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 Continue to monitor blood glucose level LAKESHIA (obstructive sleep apnea) CPAP overnight Depression/PTSD/anxiety Psych team consulted patient yesterday, patient was found to have depression, anxiety. Recommended start 25 mgs PO TID and see how he responds and decrease dose of bupropion which can be cause of increased anxiety VS,Fishbone, I+O VS, Fishbone, I+O Vital Signs Date Time Temp Pulse Resp B/P (MAP) Pulse Ox O2 Delivery O2 Flow Rate FiO2 02/28/21 10:16 87 95/58 02/28/21 06:00 97.8 18 91 Nasal Cannula 2.0 I&O- Last 24 Hours up to 6 AM 02/28/21 06:00 Intake Total 1440 ml Output Total 1400 ml Balance 40 ml JUAN [place]NA[place] 1, 2021 11:07
[2021-02-28 12:43] LABS: CALCIUM LEVEL 8.4 MG/DL (8.8-10.2); CREATININE FOR GFR 1.3 MG/DL (0.70-1.30); GLOMERULAR FILTRATION RATE 57.9 (>42); POTASSIUM SERUM 3.4 MEQ/L (3.5-5.1)
[2021-02-28 14:00] VITALS: BP 96/60
[2021-02-28] MEDS: FUROSEMIDE 20MG/2ML VIAL (J1940) IV SCH (16:39)
[2021-02-28] MEDS: FLUDROCORTISONE ACETATE 0.1 MG TAB PO SCH (16:39)
[2021-02-28 20:00] VITALS: BP 101/62
[2021-02-28] MEDS: TERAZOSIN 5MG CAPSULE PO SCH (21:00)
[2021-02-28] MEDS: RIVAROXABAN 15 MG TAB (XARELTO) PO SCH (21:09)
[2021-02-28] MEDS: SIMVASTATIN 40 MG TAB PO SCH (21:09)
[2021-02-28 22:00] VITALS: BP 126/72
[2021-02-28 23:00] VITALS: BP 111/65
--- NOTE | 2021-03-01 00:03 | IPNPDOC ---
Text Note Date of Service The patient was seen on 02/28/21. NOTE Patients blood pressure is lower than his usual measuring at 101/62, HR 73 befor e his 2100 medications were due to be taken. I instructed patients nurse to hold his Hytrin 5 mg po qhs due to his low blood pressure and patient also received his 1700 dose of Lasix 20 mg IV. Will continue to monitor patients blood pressure (BP). 2300-Patients BP improved 111/65 with HR (heart rate) 80. Will continue to monitor patient. VS,Fishbone, I+O VS, Fishbone, I+O Laboratory Tests 02/28/21 11:32 Vital Signs Date Time Temp Pulse Resp B/P (MAP) Pulse Ox O2 Delivery O2 Flow Rate FiO2 02/28/21 23:24 80 111/65 02/28/21 21:00 2.0 02/28/21 14:00 97.8 19 94 Room Air I&O- Last 24 Hours up to 6 AM 02/28/21 06:00 Intake Total 1440 ml Output Total 1400 ml Balance 40 ml RADHA NANCE PL[employer] SPECIALIST Mar 01, 2021 00:03
[2021-03-01 04:00] VITALS: BP 96/52
[2021-03-01 06:00] VITALS: BP 86/54
[2021-03-01 06:05] LABS: BASO # 0.1 10^3/uL (0.0-0.2); BASO % 0.6 % (0.0-1.0); EOS # 0.1 10^3/uL (0.0-0.5); EOS % 1.4 % (0.0-3.0); HEMATOCRIT 31.8 % (42.0-52.0); HEMOGLOBIN 9.6 g/dl (13.5-17.5); LYMPH # 1.3 10^3/uL (1.5-5.0); LYMPH % 15.4 % (24.0-44.0); MEAN CORPUSCULAR HEMOGLOBIN 23.7 pg (27.0-33.0); MEAN CORPUSCULAR HGB CONC 30.2 g/dl (32.0-36.5); MEAN CORPUSCULAR VOLUME 78.5 fl (80.0-96.0); MONO # 0.6 10^3/uL (0.0-0.8); MONO % 7.3 % (2.0-8.0); NEUTROPHILS # 6.2 10^3/uL (1.5-8.5); NEUTROPHILS % 74.6 % (36.0-66.0); PLATELET COUNT, AUTOMATED 190 10^3/uL (150-450); RED BLOOD COUNT 4.05 10^6/uL (4.30-6.10); WHITE BLOOD COUNT 8.3 10^3/uL (4.0-10.0)
[2021-03-01 06:35] LABS: ALBUMIN 2.5 GM/DL (3.2-5.2); ALT/SGPT 19 U/L (12-78); BILIRUBIN,TOTAL 0.5 MG/DL (0.2-1.0); BLOOD UREA NITROGEN 38 MG/DL (7-18); CALCIUM LEVEL 8.3 MG/DL (8.8-10.2); CARBON DIOXIDE LEVEL 23 MEQ/L (21-32); CHLORIDE LEVEL 112 MEQ/L (98-107); CREATININE FOR GFR 1.16 MG/DL (0.70-1.30); GLOMERULAR FILTRATION RATE > 60.0 (>42); GLUCOSE, FASTING 103 MG/DL (70-100); MAGNESIUM LEVEL 2.1 MG/DL (1.8-2.4); POTASSIUM SERUM 3.7 MEQ/L (3.5-5.1); SODIUM LEVEL 144 MEQ/L (136-145); TOTAL PROTEIN 5.2 GM/DL (6.4-8.2)
[2021-03-01] MEDS: HumaLOG INSULIN (NovoLOG) PER UNIT SC SCH ×4 (07:30→20:46)
[2021-03-01 08:05] LABS: NT-PRO BNP 1663 PG/ML (<125)
[2021-03-01] MEDS: MIDODRINE 5 MG TAB PO SCH ×3 (08:50→16:46)
[2021-03-01] MEDS: FINASTERIDE 5 MG TAB PO SCH (08:53)
[2021-03-01] MEDS: DOCUSATE SODIUM 100MG CAPSULE PO SCH ×2 (08:53→20:01)
[2021-03-01] MEDS: ASCORBIC ACID 250 MG TAB PO SCH (08:54)
[2021-03-01] MEDS: SERTRALINE 100 MG TAB PO SCH (08:54)
[2021-03-01] MEDS: QUEtiapine FUMARATE 25 MG TAB PO SCH ×3 (08:54→20:01)
[2021-03-01] MEDS: OMEPRAZOLE 20 MG CAP PO SCH (08:54)
[2021-03-01] MEDS: POTASSIUM CHLORIDE 10 MEQ SR TABLET PO SCH (08:54)
[2021-03-01] MEDS: ATOVAQUONE SUSP 750MG/5ML 210 ML BTL PO SCH (08:55)
[2021-03-01] MEDS: FERROUS GLUCONATE 324 MG TAB PO SCH ×2 (08:55→20:01)
[2021-03-01] MEDS: METOPROLOL TART 12.5 MG PER 1/2 TAB PO SCH (09:00)
[2021-03-01] MEDS: FUROSEMIDE 20MG/2ML VIAL (J1940) IV SCH ×2 (09:00→16:50)
[2021-03-01] MEDS ORDERED: HYDROCORTISONE 10 MG TAB PO SCH (09:00)
[2021-03-01] MEDS: buPROPion (WELLBUTRIN SR) 100 MG SR TAB PO SCH (09:52)
--- NOTE | 2021-03-01 10:14 | IPNPDOC ---
Text Note Date of Service The patient was seen on 03/01/21. NOTE Subjective: Patient stated that he feels a little better today. He stated that his leg swelling improved. He denied any cough and sputum production Objective: GENERAL APPEARANCE: NAD HEENT: no scleral icterus, plus JVD, EOMI CARDIOVASCULAR: S1S2 LUNGS: Diminished lung sounds bilaterally ABDOMEN: soft & not tender w palpitation MUSCULOSKELETAL: no cyanosis, +1 nonpitting edema INTEGUMENT: no generalized pallor NEUROLOGICAL: cranial nerve function from 2-12 intact intact, follows commands, speech not dysarthric Assessment/Plan Patient is 70 years old male with past history of atrial fibrillation on anticoagulation, LAKESHIA on CPAP, GERD, anemia, heart failure with preserved EF, hypertension, CKD, 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 Of note patient was recently discharged from the hospital, however he was not able to pay for medication and she didn't take atovaquone which was recommended on discharge. Patient was found to have multifactorial acute respiratory failure secondary to pulmonary hemosiderosis, decompensated diastolic CHF, community-acquired pneumonia and questionable PCP infection due to frequent steroids use. Patient received ceftriaxone with atovaquone. Patient reported that after discharge he continues to have shortness of breath which became progressively worse and generalized weakness. Patient reported increased legs swelling Also he reports intermittent cough without sputum production. He denied chest pain, dizziness, abdominal pain, nausea, vomiting or diarrhea. Denies any sick contacts or recent travel. In ER patient was found to have leukocytosis of 12, hemoglobin 10.2, lactic acid 1.4, negative troponin, creatinine 1.4, BNP 2500, chest x-ray showed Moderate to significant bilateral multifocal infiltrates and lower lobe consolidations increased from prior examination Problems (1) Acute respiratory failure with hypoxia Patient currently requires 2 L of oxygen Most likely secondary to diastolic CHF exacerbation procalcitonin negative. I discontinued antibiotics. Patient afebrile Patient was not compliant to medication due to insurance issues Continue oxygen supplementation CT showed on 02/26: 1. Multiple bilateral ground-glass, semi-solid and solid pulmonary parenchymal infiltrates. Findings most consistent with multifocal pneumonitis. Findings are grossly stable in comparison prior study of 01/30/2021. 2. There is fusiform dilatation of the ascending thoracic aorta which measures 4.1 cm. maximally. There is no saccular component. 3. There is enlargement of the central pulmonary arteries, findings which can be associated with pulmonary arterial hypertension which should be correlated clinically. Ascending aortic aneurysm Follow-up with PCP in the outpatient settings for regular checkup Hypotension/adrenal insufficiency On previous admission patient was diagnosed with adrenal insufficiency secondary to prolonged course of steroids I started midodrine, hydrocortisone and fludrocortisone. Cortisol level came back today within normal limit. I discontinued hydrocortisone and fludrocortisone Started prednisone 40 mg by mouth daily Chronic atrial fibrillation Heart rate under control Continue Xarelto and metoprolol CHF exacerbation Diastolic CHF exacerbation Echo was done on the previous admission around 1 week ago and showed EF 60-65% Study is of fair technical quality, underlying atrial fibrillation with controlled rate. Normal LV size with grossly preserved LV systolic function. Dilated hypokinetic right ventricle. Severe biatrial enlargement. Mild pulmonary hypertension Prominent aortic sclerosis with trace insufficiency and unknown degree of stenosis BNP elevated to 2500. Today BNP improved I decreased his dose of Lasix to 20 mg IV twice daily due to hypotension. Continue Cardiac/diabetes diet Fluid restriction Pneumonia Multifactorial. Differential diagnosis includes HCAP due to PCP, mycoplasma, chlamydia infection. 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 Continue to monitor blood glucose level LAKESHIA (obstructive sleep apnea) CPAP overnight Depression/PTSD/anxiety Psych team consulted patient, patient was found to have depression, anxiety. Recommended start 25 mgs PO TID and see how he responds and decrease dose of bupropion which can be cause of increased anxiety VS,Abdiel, I+O VS, Garciabone, I+O Laboratory Tests 02/28/21 11:32 03/01/21 05:31 Vital Signs Date Time Temp Pulse Resp B/P (MAP) Pulse Ox O2 Delivery O2 Flow Rate FiO2 03/01/21 09:00 59 95/59 03/01/21 06:00 97.5 18 95 Nasal Cannula 2.0 I&O- Last 24 Hours up to 6 AM 03/01/21 06:00 Intake Total 1420 ml Output Total 2000 ml Balance -580 ml JUAN CANADA DO Mar 01, 2021 10:14
[2021-03-01] MEDS ORDERED: predniSONE 20 MG TAB PO ONE (11:00)
[2021-03-01 14:00] VITALS: BP 113/70
[2021-03-01] MEDS: RIVAROXABAN 15 MG TAB (XARELTO) PO SCH (20:01)
[2021-03-01] MEDS: SIMVASTATIN 40 MG TAB PO SCH (20:01)
[2021-03-01] MEDS: TAMSULOSIN 0.4 MG CAP PO SCH (20:01)
[2021-03-01 22:00] VITALS: BP 109/69
[2021-03-02 05:59] LABS: BASO % 0.3 % (0.0-1.0); EOS # 0.2 10^3/uL (0.0-0.5); EOS % 1.4 % (0.0-3.0); HEMATOCRIT 34.7 % (42.0-52.0); HEMOGLOBIN 10.4 g/dl (13.5-17.5); LYMPH # 1.4 10^3/uL (1.5-5.0); LYMPH % 11.2 % (24.0-44.0); MEAN CORPUSCULAR HEMOGLOBIN 23.7 pg (27.0-33.0); MEAN CORPUSCULAR VOLUME 79.2 fl (80.0-96.0); MONO # 0.7 10^3/uL (0.0-0.8); MONO % 5.9 % (2.0-8.0); NEUTROPHILS % 79.4 % (36.0-66.0); PLATELET COUNT, AUTOMATED 211 10^3/uL (150-450); RED BLOOD COUNT 4.38 10^6/uL (4.30-6.10); WHITE BLOOD COUNT 12.6 10^3/uL (4.0-10.0)
[2021-03-02 06:00] VITALS: BP 99/65
[2021-03-02 06:24] LABS: ALBUMIN 2.7 GM/DL (3.2-5.2); ALT/SGPT 21 U/L (12-78); BILIRUBIN,TOTAL 0.6 MG/DL (0.2-1.0); BLOOD UREA NITROGEN 34 MG/DL (7-18); CALCIUM LEVEL 8.3 MG/DL (8.8-10.2); CARBON DIOXIDE LEVEL 27 MEQ/L (21-32); CHLORIDE LEVEL 111 MEQ/L (98-107); CREATININE FOR GFR 1.25 MG/DL (0.70-1.30); GLOMERULAR FILTRATION RATE > 60.0 (>42); GLUCOSE, FASTING 72 MG/DL (70-100); POTASSIUM SERUM 3.4 MEQ/L (3.5-5.1); SODIUM LEVEL 145 MEQ/L (136-145); TOTAL PROTEIN 5.6 GM/DL (6.4-8.2)
[2021-03-02] MEDS: HumaLOG INSULIN (NovoLOG) PER UNIT SC SCH ×4 (07:30→20:33)
[2021-03-02] MEDS: FINASTERIDE 5 MG TAB PO SCH (08:45)
[2021-03-02] MEDS: DOCUSATE SODIUM 100MG CAPSULE PO SCH ×2 (08:46→20:38)
[2021-03-02] MEDS: FERROUS GLUCONATE 324 MG TAB PO SCH ×2 (08:46→20:38)
[2021-03-02] MEDS: QUEtiapine FUMARATE 25 MG TAB PO SCH ×3 (08:46→20:38)
[2021-03-02] MEDS: MIDODRINE 5 MG TAB PO SCH ×3 (08:46→16:20)
[2021-03-02] MEDS: POTASSIUM CHLORIDE 10 MEQ SR TABLET PO SCH (08:46)
[2021-03-02] MEDS: ASCORBIC ACID 250 MG TAB PO SCH (08:46)
[2021-03-02] MEDS: predniSONE 20 MG TAB PO SCH (08:46)
[2021-03-02] MEDS: OMEPRAZOLE 20 MG CAP PO SCH (08:46)
[2021-03-02] MEDS: buPROPion (WELLBUTRIN SR) 100 MG SR TAB PO SCH (08:46)
[2021-03-02] MEDS: ATOVAQUONE SUSP 750MG/5ML 210 ML BTL PO SCH (08:47)
[2021-03-02] MEDS: FUROSEMIDE 20MG/2ML VIAL (J1940) IV SCH ×3 (08:47→16:22)
[2021-03-02] MEDS: SERTRALINE 100 MG TAB PO SCH (08:47)
[2021-03-02] MEDS: METOPROLOL TART 12.5 MG PER 1/2 TAB PO SCH (08:48)
[2021-03-02 14:00] VITALS: BP 99/63
--- NOTE | 2021-03-02 14:03 | IPNPDOC ---
Text Note Date of Service The patient was seen on 03/02/21. NOTE Subjective: No any acute events overnight. Patient denies fever, chills, chest pain, palpitation Objective: GENERAL APPEARANCE: NAD HEENT: no scleral icterus, plus JVD, EOMI CARDIOVASCULAR: S1S2 LUNGS: Diminished lung sounds bilaterally ABDOMEN: soft & not tender w palpitation MUSCULOSKELETAL: no cyanosis, +1 nonpitting edema INTEGUMENT: no generalized pallor NEUROLOGICAL: cranial nerve function from 2-12 intact intact, follows commands, speech not dysarthric Assessment/Plan Patient is 70 years old male with past history of atrial fibrillation on anticoagulation, LAKESHIA on CPAP, GERD, anemia, heart failure with preserved EF, hypertension, CKD, 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 Of note patient was recently discharged from the hospital, however he was not able to pay for medication and she didn't take atovaquone which was recommended on discharge. Patient was found to have multifactorial acute respiratory failure secondary to pulmonary hemosiderosis, decompensated diastolic CHF, community-acquired pneumonia and questionable PCP infection due t o frequent steroids use. Patient received ceftriaxone with atovaquone. Patient reported that after discharge he continues to have shortness of breath which became progressively worse and generalized weakness. Patient reported increased legs swelling Also he reports intermittent cough without sputum production. He denied chest pain, dizziness, abdominal pain, nausea, vomiting or diarrhea. Denies any sick contacts or recent travel. In ER patient was found to have leukocytosis of 12, hemoglobin 10.2, lactic acid 1.4, negative troponin, creatinine 1.4, BNP 2500, chest x-ray showed Moderate to significant bilateral multifocal infiltrates and lower lobe consolidations increased from prior examination Problems (1) Acute respiratory failure with hypoxia Improved Patient currently requires 1 L of oxygen in the morning Most likely secondary to diastolic CHF exacerbation procalcitonin negative. I discontinued antibiotics. Patient afebrile Patient was not compliant to medication due to insurance issues Continue oxygen supplementation CT showed on 02/26: 1. Multiple bilateral ground-glass, semi-solid and solid pulmonary parenchymal infiltrates. Findings most consistent with multifocal pneumonitis. Findings are grossly stable in comparison prior study of 01/30/2021. 2. There is fusiform dilatation of the ascending thoracic aorta which measures 4.1 cm. maximally. There is no saccular component. 3. There is enlargement of the central pulmonary arteries, findings which can be associated with pulmonary arterial hypertension which should be correlated clinically. Ascending aortic aneurysm Follow-up with PCP in the outpatient settings for regular checkup Hypotension/adrenal insufficiency On previous admission patient was diagnosed with adrenal insufficiency secondary to prolonged course of steroids I started midodrine, hydrocortisone and fludrocortisone. Cortisol level came back today within normal limit. I discontinued hydrocortisone and fludrocortisone Continue prednisone 40 mg by mouth daily Chronic atrial fibrillation Heart rate under control Continue Xarelto and metoprolol CHF exacerbation Diastolic CHF exacerbation Echo was done on the previous admission around 1 week ago and showed EF 60-65% Study is of fair technical quality, underlying atrial fibrillation with controlled rate. Normal LV size with grossly preserved LV systolic function. Dilated hypokinetic right ventricle. Severe biatrial enlargement. Mild pulmonary hypertension Prominent aortic sclerosis with trace insufficiency and unknown degree of stenosis BNP elevated to 2500. Today BNP improved I decreased his dose of Lasix to 20 mg IV twice daily due to hypotension. Continue Cardiac/diabetes diet Fluid restriction Pneumonia Multifactorial. Differential diagnosis includes HCAP due to PCP, mycoplasma, chlamydia infection. 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 Continue to monitor blood glucose level LAKESHIA (obstructive sleep apnea) CPAP overnight Depression/PTSD/anxiety Psych team consulted patient, patient was found to have depression, anxiety. Recommended start 25 mgs PO TID and see how he responds and decrease dose of bupropion which can be cause of increased anxiety VS,Abdiel, I+O VS, Garciabone, I+O Laboratory Tests 03/02/21 05:26 Vital Signs Date Time Temp Pulse Resp B/P (MAP) Pulse Ox O2 Delivery O2 Flow Rate FiO2 03/02/21 09:00 3.0 03/02/21 06:00 97.5 100 20 99/65 (76) 94 03/01/21 22:00 Room Air I&O- Last 24 Hours up to 6 AM 03/02/21 06:00 Intake Total 575 ml Output Total 1605 ml Balance -1030 ml JUAN CANADA DO Mar 02, 2021 14:03
[2021-03-02 14:09] LABS: CHLAMYDIA PNEUMONIAE IgM <1:10 (Neg:<1:10); MYCOPLASMA PNEUMONIAE IgG 536 U/mL (0-99); MYCOPLASMA PNEUMONIAE IgM <770 U/mL (0-769)
[2021-03-02] MEDS ORDERED: metOLazone 5 MG TAB PO ONE (14:15)
[2021-03-02 19:39] LABS: BODY FLUID CULTURE Not indicated. (.); LEGIONELLA ANTIGEN URINE Negative (Negative); ORGANISM ID Not indicated. (.); SPECIMEN SOURCE Urine (.); URINE STREP PNEUMONIAE ANTIGEN Negative (Negative)
[2021-03-02] MEDS: RIVAROXABAN 15 MG TAB (XARELTO) PO SCH (20:38)
[2021-03-02] MEDS: SIMVASTATIN 40 MG TAB PO SCH (20:38)
[2021-03-02] MEDS: TAMSULOSIN 0.4 MG CAP PO SCH (20:38)
[2021-03-02 22:00] VITALS: BP 97/62
[2021-03-03 06:00] VITALS: BP 95/67
[2021-03-03 06:26] LABS: BASO % 0.3 % (0.0-1.0); EOS # 0.2 10^3/uL (0.0-0.5); EOS % 1.3 % (0.0-3.0); HEMATOCRIT 34.9 % (42.0-52.0); HEMOGLOBIN 10.8 g/dl (13.5-17.5); LYMPH # 1.7 10^3/uL (1.5-5.0); LYMPH % 14.4 % (24.0-44.0); MEAN CORPUSCULAR HEMOGLOBIN 24.2 pg (27.0-33.0); MEAN CORPUSCULAR HGB CONC 30.9 g/dl (32.0-36.5); MEAN CORPUSCULAR VOLUME 78.1 fl (80.0-96.0); MONO # 0.6 10^3/uL (0.0-0.8); MONO % 5.5 % (2.0-8.0); NEUTROPHILS # 8.7 10^3/uL (1.5-8.5); NEUTROPHILS % 76.3 % (36.0-66.0); PLATELET COUNT, AUTOMATED 233 10^3/uL (150-450); RED BLOOD COUNT 4.47 10^6/uL (4.30-6.10); WHITE BLOOD COUNT 11.4 10^3/uL (4.0-10.0)
[2021-03-03 06:54] LABS: ALBUMIN 3.2 GM/DL (3.2-5.2); BILIRUBIN,TOTAL 0.5 MG/DL (0.2-1.0); CALCIUM LEVEL 8.9 MG/DL (8.8-10.2); CREATININE FOR GFR 1.37 MG/DL (0.70-1.30); GLOMERULAR FILTRATION RATE 54.5 (>42); POTASSIUM SERUM 3.2 MEQ/L (3.5-5.1); TOTAL PROTEIN 5.9 GM/DL (6.4-8.2)
[2021-03-03] MEDS: HumaLOG INSULIN (NovoLOG) PER UNIT SC SCH ×4 (07:30→20:32)
[2021-03-03] MEDS ORDERED: POTASSIUM CHLORIDE 10 MEQ SR TABLET PO ONE (08:15)
[2021-03-03] MEDS: FUROSEMIDE 20MG/2ML VIAL (J1940) IV SCH ×2 (08:33→17:09)
[2021-03-03] MEDS: ATOVAQUONE SUSP 750MG/5ML 210 ML BTL PO SCH (08:34)
[2021-03-03] MEDS: SERTRALINE 100 MG TAB PO SCH (08:35)
[2021-03-03] MEDS: QUEtiapine FUMARATE 25 MG TAB PO SCH ×2 (08:35→20:33)
[2021-03-03] MEDS: buPROPion (WELLBUTRIN SR) 100 MG SR TAB PO SCH (08:35)
[2021-03-03] MEDS: ASCORBIC ACID 250 MG TAB PO SCH (08:35)
[2021-03-03] MEDS: predniSONE 20 MG TAB PO SCH (08:35)
[2021-03-03] MEDS: MIDODRINE 5 MG TAB PO SCH ×3 (08:35→17:09)
[2021-03-03] MEDS: metOLazone 5 MG TAB PO SCH (08:35)
[2021-03-03] MEDS: POTASSIUM CHLORIDE 10 MEQ SR TABLET PO SCH (08:36)
[2021-03-03] MEDS: FERROUS GLUCONATE 324 MG TAB PO SCH ×2 (08:36→20:33)
[2021-03-03] MEDS: OMEPRAZOLE 20 MG CAP PO SCH (08:36)
[2021-03-03] MEDS: METOPROLOL TART 12.5 MG PER 1/2 TAB PO SCH (08:36)
[2021-03-03] MEDS: FINASTERIDE 5 MG TAB PO SCH (08:36)
[2021-03-03] MEDS: DOCUSATE SODIUM 100MG CAPSULE PO SCH ×2 (08:36→20:33)
--- NOTE | 2021-03-03 13:01 | IPNPDOC ---
Text Note Date of Service The patient was seen on 03/03/21. NOTE Subjective: No any acute events overnight. Patient stated that his breathing m ildly improved. 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 Of note patient was recently discharged from the hospital, however he was not able to pay for medication and she didn't take atovaquone which was recommended on discharge. Patient was found to have multifactorial acute respiratory failure secondary to pulmonary hemosiderosis, decompensated diastolic CHF, community-acquired pneumonia and questionable PCP infection due to frequent steroids use. Patient received ceftriaxone with atovaquone. Patient reported that after discharge he continues to have shortness of breath which became progressively worse and generalized weakness. Patient reported increased legs swelling Also he reports intermittent cough without sputum production. He denied chest pain, dizziness, abdominal pain, nausea, vomiting or diarrhea. Denies any sick contacts or recent travel. In ER patient was found to have leukocytosis of 12, hemoglobin 10.2, lactic acid 1.4, negative troponin, creatinine 1.4, BNP 2500, chest x-ray showed Moderate to significant bilateral multifocal infiltrates and lower lobe consolidations increased from prior examination Problems (1) Acute respiratory failure with hypoxia Improved Patient currently requires 1 L of oxygen in the morning Most likely secondary to diastolic CHF exacerbation procalcitonin negative. I discontinued antibiotics. Patient afebrile Patient was not compliant to medication due to insurance issues Continue oxygen supplementation CT showed on 02/26: 1. Multiple bilateral ground-glass, semi-solid and solid pulmonary parenchymal infiltrates. Findings most consistent with multifocal pneumonitis. Findings are grossly stable in comparison prior study of 01/30/2021. 2. There is fusiform dilatation of the ascending thoracic aorta which measures 4.1 cm. maximally. There is no saccular component. 3. There is enlargement of the central pulmonary arteries, findings which can be associated with pulmonary arterial hypertension which should be correlated clinically. Ascending aortic aneurysm Follow-up with PCP in the outpatient settings for regular checkup Hypotension/adrenal insufficiency On previous admission patient was diagnosed with adrenal insufficiency secondary to prolonged course of steroids I started midodrine, hydrocortisone and fludrocortisone. Cortisol level came back today within normal limit. I discontinued hydrocortisone and fludrocortisone Continue prednisone 40 mg by mouth daily Chronic atrial fibrillation Heart rate under control Continue Xarelto and metoprolol CHF exacerbation Diastolic CHF exacerbation Echo was done on the previous admission around 1 week ago and showed EF 60-65% Study is of fair technical quality, underlying atrial fibrillation with controlled rate. Normal LV size with grossly preserved LV systolic function. Dilated hypokinetic right ventricle. Severe biatrial enlargement. Mild pulmonary hypertension Prominent aortic sclerosis with trace insufficiency and unknown degree of stenosis BNP elevated to 2500. Today BNP improved I decreased his dose of Lasix to 20 mg IV twice daily due to hypotension. Added metolazone Continue Cardiac/diabetes diet Fluid restriction Pneumonia Multifactorial. Differential diagnosis includes HCAP due to PCP, mycoplasma, chlamydia infection. Patient afebrile, no cough, no sputum Procalcitonin negative, discontinued Ceftriaxone IV and azithromycin IV c/w atovaquone tests ordered for Legionella, Mycoplasma, Chlamydia pending IgG for mycoplasma and chlamydia pneumonia markedly elevated. 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 Continue to monitor blood glucose level LAKESHIA (obstructive sleep apnea) CPAP overnight Depression/PTSD/anxiety Psych team consulted patient, patient was found to have depression, anxiety. Recommended start 25 mgs PO TID and see how he responds and decrease dose of bupropion which can be cause of increased anxiety VS,Fishbone, I+O VS, Fishbone, I+O Laboratory Tests 03/03/21 05:23 Vital Signs Date Time Temp Pulse Resp B/P (MAP) Pulse Ox O2 Delivery O2 Flow Rate FiO2 03/03/21 08:30 3.0 03/03/21 06:00 96.4 91 20 95/67 (76) 96 03/02/21 14:00 Room Air I&O- Last 24 Hours up to 6 AM 03/03/21 06:00 Intake Total 1120 ml Output Total 3000 ml Balance -1880 ml JUAN CANADA Mar 03, 2021 13:01
[2021-03-03 14:00] VITALS: BP 105/65
--- NOTE | 2021-03-03 16:15 | REP ---
INDICATION: dvt. COMPARISON: None. TECHNIQUE: Multiple ultrasonographic images of the deep venous structures of the right lower extremity were obtained from the inguinal ligament to the ankle. Venous compression techniques, color doppler imaging, and augmentation techniques were also obtained where appropriate. As per the ACR guidelines the anterior tibial vein can not be effectively evaluated. Only compression techniques in the calf on the peroneal and posterior tibial veins was attempted/performed. FINDINGS: There is no abnormal echogenic material seen within any of the visualized deep venous structures that would suggest acute thrombosis. Coaptation is unremarkable throughout. Doppler interrogation shows an expected response to respiratory variability and augmentation in the thigh. Compression techniques in the calf showed no abnormality or were unobtainable. The color flow images show what appears to be a normal vascular pattern throughout the thigh. IMPRESSION: There is no ultrasonographic evidence of deep venous thrombosis involving any of the visualized deep venous structures of the right lower extremity as described above. Due to technical parameters calf vein DVT can not be ruled out. The technologist has made note on the worksheet that due to the patient's body habitus there was only a limited view of the peroneal vein. <Electronically signed by Osmani Edmond > 03/03/21 [id number]
[2021-03-03] MEDS ORDERED: BACTRIM 160MG/800MG DS TAB PO SCH (18:00)
[2021-03-03] MEDS: SIMVASTATIN 40 MG TAB PO SCH (20:33)
[2021-03-03] MEDS: RIVAROXABAN 15 MG TAB (XARELTO) PO SCH (20:33)
[2021-03-03] MEDS: TAMSULOSIN 0.4 MG CAP PO SCH (20:33)
[2021-03-03 22:00] VITALS: BP 123/75
--- NOTE | 2021-03-03 22:30 | CR ---
INFECTIOUS DISEASE CONSULTATION DATE: 03/03/2021 CONSULTATION REQUESTED BY: Charles Urban DO REASON FOR CONSULTATION: Evaluation of pulmonary infiltrates. HISTORY OF PRESENT ILLNESS: Mr. 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 His initial admission was January 30 to February 03 with shortness of breath and cough. He was treated with Ceftriaxone from January 30 to February 03 and Methylprednisolone 250 mg I.V. every 6 hours. His procalcitonin during that hospitalization was 0.1 and his respiratory panel was negative. He was readmitted 10 days later and was seen in consultation by Dr. Helms. He was afebrile. He had a nonproductive cough. His WBC=12.4 down to 8.8. Procalcitonin was slightly elevated at 0.5. He was treated with Levaquin 750 mg for three days. Bactrim DS was started for 24 hours, then he was switched to Atovaquone from 02/15 to 02/20 at 1,500 mg daily that he took for six days for pneumocystis pneumonia prophylaxis. The patient was usually followed up by the [facility] for pulmonary and was seen in consultation by Dr. Helms last admission and he was going to transfer care to her service, but has not gotten an appointment yet. He was again admitted February 26, six days after discharge, with increasing shortness of breath. He states that he was discharged without any diuretic which he usually takes. He had cough, but mostly without any sputum. He denies any chest pain, dizziness, abdominal pain, nausea, vomiting. He stated that he had lower extremity edema, worsening shortness of breath, less malaise but no fever or chills. Patient's chest CT showed multiple ground-glass opacities, loculated pleural fluid in the right upper lobe. Further workup during the last hospitalization; pneumococcal urine antigen was negative, Legionnaire antigen was negative. Chlamydia and mycoplasma IGG were positive. Beta-D glucan was less than 31. HIV negative. Flu A, B, RSV, SARS-CoV2 negative on 02/26/2021. 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 ALLERGIES: Albuterol, Amlodipine, Atenolol. MEDICATIONS: Tylenol p.r.n. Cetirizine 10 mg p.o. every day. Clotrimazole topical b.i.d. Colace 200 mg b.i.d. Xarelto 15 mg BID Prednisone 40mg daily Omeprazole 40 mg p.o. daily. Potassium 30 mEq p.o. daily. Bupropion 100 mg p.o. daily. .Furosemide 20 mg I.V. b.i.d. Metoprolol 12.5 mg p.o. daily. Quetiapine 25 mg p.o. b.i.d. Zaroxolyn 5 mg p.o. daily. His hemoglobin is 10.8 and I would suggest to decrease his dose of iron to once a day. FAMILY HISTORY: Mother with pancreatic cancer. Sister with ovarian cancer. SOCIAL HISTORY: He quit smoking. Denies alcohol use or drug use. He lives at home with his and children. No sick contacts. REVIEW OF SYSTEMS: He denies any headache, rash. No fever or chills. No night sweats. He did lose about 100 pounds in the past year and he is not sure why, he does have some decreased appetite, but no nausea, vomiting or diarrhea. He has no upper or lower extremity weakness. He states that he is very good at rest, but he gets short of breath with exertion. Patient complains of constipation and a lot of gas, and he blames on his iron supplement. PHYSICAL EXAMINATION: GENERAL: He is a healthy looking gentleman, somewhat irritated, in no acute distress. VITAL SIGNS: Temperature 97.7, pulse 89, respirations 18, blood pressure 105/65, O2 sat 96% on room air. He has been afebrile in the past five days. HEART: Normal S1, S2 distant. LUNGS: Diminished breath sounds at the bases, but clear. ABDOMEN: Soft, nontender. No hepatosplenomegaly. EXTREMITIES: +1 pitting edema on the right side, trace edema on the left side. Hyperpigmented venous changes on the anterior tibia. No redness or cellulitis. NEUROLOGIC: Normal. LABORATORY DATA: White count 11.4, hemoglobin 10.8, hematocrit 34.9, platelets 233,000, 76% neutrophils, 14% lymphocytes, 5% monocytes. Sodium 141, potassium 3.2, chloride 106, bicarb 27, BUN 33, creatinine 1.37, glucose 86, calcium 8.9. Magnesium 2, bilirubin 0.5, AST 6, ALT 21, alkaline phosphatase 73. BNP 1,123. Albumin 3.2. Procalcitonin 0.1. Blood cultures two sets were negative on 02/26/2021. IMAGING STUDIES: Vascular ultrasound of right lower extremity was negative for DVT, although not all venous structures were visualized including the popliteal vein. Chest CT showed ground-glass opacities, loculated pleural effusion, calcified granuloma right upper lobe, ascending thoracic aorta measures 4.1 cm, enlargement of the central pulmonary artery consistent with pulmonary arterial hypertension. IMPRESSION: This is a 70-year-old gentleman with a history of pulmonary hypertension, alveolar hemorrhage, questionable pulmonary hemosiderosis, who has presented on three different occasions in January with increasing shortness of breath, mostly suggestive of right-sided heart failure, fluid retention. All the infectious disease workup was negative. He never had fever, chills, yellow productive phlegm. His BNP is slightly elevated and he improves mostly with steroids and diuresis. I do not see any indication at this time for antibiotics. His Procalcitonin is normal at 0.1. As far as PCP prophylaxis, it is not usually indicated for just steroid use, but if he is on two immunosuppressant drugs, it would be indicated if his prednisone would be used at more than 20 mg for four weeks. The case was discussed with Dr. 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 PLAN: Would suggest using Bactrim double strength one tablet p.o. Saturday, Saturday, Saturday, dose lowered for nephrotoxicity. Patient is already noncompliant with Atovaquone as it has a very bad taste. Monitor kidney function. On three times weekly Bactrim. Discontinue antibiotics including Mepron. The case has been discussed with Dr. Helms and Dr. Urban. [facility]
--- NOTE | 2021-03-03 23:44 | ECGEPIP ---
[facility] Test Date: 2021-02-28 Pat Name: CHETAN DONAHUE Department: Room: [place] [address] Gender: Male Proposal Writer: champ : 1950 Requested By: JUAN CANADA Order Number: [id number] Reading MD: Darion Bui Measurements Intervals [place] Rate: 75 P: ME: QRS: -38 QRSD: 76 T: -11 QT: 394 QTc: 439 Interpretive Statements Atrial fibrillation Left axis deviation Low voltage QRS Compared to prior tracings (4) in the system, Atrial Fib is old. Electronically Signed on 03-03-2021 23:43:50 EDT by Darion Bui
[2021-03-04 04:58] LABS: BASO % 0.4 % (0.0-1.0); EOS # 0.1 10^3/uL (0.0-0.5); EOS % 1.2 % (0.0-3.0); HEMATOCRIT 34.7 % (42.0-52.0); HEMOGLOBIN 10.7 g/dl (13.5-17.5); LYMPH # 1.8 10^3/uL (1.5-5.0); LYMPH % 16.7 % (24.0-44.0); MEAN CORPUSCULAR HEMOGLOBIN 23.9 pg (27.0-33.0); MEAN CORPUSCULAR HGB CONC 30.8 g/dl (32.0-36.5); MEAN CORPUSCULAR VOLUME 77.6 fl (80.0-96.0); MONO # 0.8 10^3/uL (0.0-0.8); MONO % 7.1 % (2.0-8.0); NEUTROPHILS # 7.6 10^3/uL (1.5-8.5); NEUTROPHILS % 70.3 % (36.0-66.0); PLATELET COUNT, AUTOMATED 225 10^3/uL (150-450); RED BLOOD COUNT 4.47 10^6/uL (4.30-6.10); WHITE BLOOD COUNT 10.8 10^3/uL (4.0-10.0)
[2021-03-04 05:47] LABS: ALBUMIN 3.1 GM/DL (3.2-5.2); BILIRUBIN,TOTAL 0.3 MG/DL (0.2-1.0); CALCIUM LEVEL 8.4 MG/DL (8.8-10.2); CREATININE FOR GFR 1.43 MG/DL (0.70-1.30); GLOMERULAR FILTRATION RATE 51.9 (>42); MAGNESIUM LEVEL 2.1 MG/DL (1.8-2.4); POTASSIUM SERUM 2.9 MEQ/L (3.5-5.1); TOTAL PROTEIN 6.1 GM/DL (6.4-8.2)
[2021-03-04 06:00] VITALS: BP 101/56
[2021-03-04] MEDS: KCL 10MEQ/100ML SWI (KRUN) 10 MEQ in IV 1 EA IV SCH ×2 (07:00→08:00)
[2021-03-04] MEDS: HumaLOG INSULIN (NovoLOG) PER UNIT SC SCH ×4 (07:30→20:08)
[2021-03-04] MEDS ORDERED: POTASSIUM CHLORIDE 10 MEQ SR TABLET PO ONE ×2 (08:00→12:00)
[2021-03-04] MEDS ORDERED: KCL 10MEQ/100ML SWI (KRUN) 10 MEQ in IV 1 EA IV ONE (08:00)
[2021-03-04] MEDS: predniSONE 20 MG TAB PO SCH (09:01)
[2021-03-04] MEDS: metOLazone 5 MG TAB PO SCH (09:02)
[2021-03-04] MEDS: buPROPion (WELLBUTRIN SR) 100 MG SR TAB PO SCH (09:02)
[2021-03-04] MEDS: ASCORBIC ACID 250 MG TAB PO SCH (09:02)
[2021-03-04] MEDS: FERROUS GLUCONATE 324 MG TAB PO SCH ×2 (09:02→20:07)
[2021-03-04] MEDS: OMEPRAZOLE 20 MG CAP PO SCH (09:02)
[2021-03-04] MEDS: SERTRALINE 100 MG TAB PO SCH (09:03)
[2021-03-04] MEDS: MIDODRINE 5 MG TAB PO SCH ×3 (09:03→17:35)
[2021-03-04] MEDS: DOCUSATE SODIUM 100MG CAPSULE PO SCH ×2 (09:07→20:07)
[2021-03-04] MEDS: FINASTERIDE 5 MG TAB PO SCH (09:07)
[2021-03-04] MEDS: QUEtiapine FUMARATE 25 MG TAB PO SCH ×2 (09:07→20:07)
[2021-03-04] MEDS: POTASSIUM CHLORIDE 10 MEQ SR TABLET PO SCH (09:08)
[2021-03-04] MEDS: METOPROLOL TART 12.5 MG PER 1/2 TAB PO SCH (09:09)
[2021-03-04] MEDS: FUROSEMIDE 20MG/2ML VIAL (J1940) IV SCH ×2 (09:09→16:28)
[2021-03-04] MEDS ORDERED: MIDO5TA PO (10:50)
[2021-03-04] MEDS ORDERED: TORS10TA3 PO (10:50)
[2021-03-04] MEDS ORDERED: QUET25TA3 PO (10:50)
[2021-03-04] MEDS ORDERED: PRED20TA PO (10:50)
[2021-03-04] MEDS ORDERED: BACTDSTA PO (10:50)
[2021-03-04] MEDS ORDERED: BUPR10TASR PO (10:50)
[2021-03-04] MEDS ORDERED: FLOM0.4C39 PO (10:50)
[2021-03-04 12:49] LABS: CALCIUM LEVEL 8.7 MG/DL (8.8-10.2); CREATININE FOR GFR 1.56 MG/DL (0.70-1.30); GLOMERULAR FILTRATION RATE 46.9 (>42); POTASSIUM SERUM 3.8 MEQ/L (3.5-5.1)
--- NOTE | 2021-03-04 13:55 | DS.PDOC ---
Discharge Summary General Date of Admission February 26, 2021 at 18:21 Date of Discharge 03/04/21 Discharge Summary PROCEDURES PERFORMED DURING STAY: [None]. ADMITTING DIAGNOSES: Acute respiratory failure with hypoxia Hypotension/adrenal insufficiency Ascending aortic aneurysm CHF exacerbation Pneumonia rule out Idiopathic pulmonary hemosiderosis BPH (benign prostatic hyperplasia) Chronic anemia Diabetes mellitus LAKESHIA (obstructive sleep apnea) CKD (chronic kidney disease), stage III DISCHARGE DIAGNOSES: Acute respiratory failure with hypoxia Hypotension/adrenal insufficiency Ascending aortic aneurysm CHF exacerbation Pneumonia rule out Idiopathic pulmonary hemosiderosis BPH (benign prostatic hyperplasia) Chronic anemia Diabetes mellitus LAKESHIA (obstructive sleep apnea) CKD (chronic kidney disease), stage III COMPLICATIONS/CHIEF COMPLAINT: Hypoxemia, Pneumonia. 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 Of note patient was recently discharged from the hospital, however he was not able to pay for medication and she didn't take atovaquone which was recommended on discharge. Patient was found to have multifactorial acute respiratory failure secondary to pulmonary hemosiderosis, decompensated diastolic CHF, community-acquired pneumonia and questionable PCP infection due to frequent steroids use. Patient received ceftriaxone with atovaquone. Patient reported that after discharge he continues to have shortness of breath which became progressively worse and generalized weakness. Patient reported increased legs swelling Also he reports intermittent cough without sputum production. He denied chest pain, dizziness, abdominal pain, nausea, vomiting or diarrhea. Denies any sick contacts or recent travel. In ER patient was found to have leukocytosis of 12, hemoglobin 10.2, lactic acid 1.4, negative troponin, creatinine 1.4, BNP 2500, chest x-ray showed Moderate to significant bilateral multifocal infiltrates and lower lobe consolidations increased from prior examination HOSPITAL COURSE: During hospital stay following issues addressed (1) Acute respiratory failure with hypoxia Improved Patient currently requires on the room air in the morning Most likely secondary to diastolic CHF exacerbation procalcitonin negative. I discontinued antibiotics. Patient afebrile Patient was not compliant to medication due to insurance issues Continue oxygen supplementation CT showed on 02/26: 1. Multiple bilateral ground-glass, semi-solid and solid pulmonary parenchymal infiltrates. Findings most consistent with multifocal pneumonitis. Findings are grossly stable in comparison prior study of 01/30/2021. 2. There is fusiform dilatation of the ascending thoracic aorta which measures 4.1 cm. maximally. There is no saccular component. 3. There is enlargement of the central pulmonary arteries, findings which can be associated with pulmonary arterial hypertension which should be correlated clinically. Ascending aortic aneurysm Follow-up with PCP in the outpatient settings for regular checkup Hypotension/adrenal insufficiency On previous admission patient was diagnosed with adrenal insufficiency secondary to prolonged course of steroids I started midodrine, hydrocortisone and fludrocortisone. Cortisol level came back today within normal limit. I discontinued hydrocortisone and f ludrocortisone Continue prednisone 40 mg by mouth daily Chronic atrial fibrillation Heart rate under control Continue Xarelto and metoprolol CHF exacerbation Diastolic CHF exacerbation Echo was done on the previous admission around 1 week ago and showed EF 60-65% Study is of fair technical quality, underlying atrial fibrillation with controlled rate. Normal LV size with grossly preserved LV systolic function. Dilated hypokinetic right ventricle. Severe biatrial enlargement. Mild pulmonary hypertension Prominent aortic sclerosis with trace insufficiency and unknown degree of stenosis BNP elevated to 2500. Today BNP improved I decreased his dose of Lasix to 20 mg IV twice daily due to hypotension. Added metolazone Continue Cardiac/diabetes diet Fluid restriction Pneumonia rule out Multifactorial. Differential diagnosis includes HCAP due to PCP, mycoplasma, chlamydia infection. Patient afebrile, no cough, no sputum Procalcitonin negative, discontinued Ceftriaxone IV and azithromycin IV DC atovaquone on discharge per recommendation of ID specialist IgG for mycoplasma and chlamydia pneumonia markedly elevated. IgM negative Idiopathic pulmonary hemosiderosis Follow-up with motors assembler in the outpatient settings Hx of alveolar hemorrhage without documented bleeding this stay, recently admitted in 01/2021 for flare of IPH Incentive spirometry Continue prednisone 40 mg until he see motors assembler BPH (benign prostatic hyperplasia) Continue finasteride Chronic anemia Continue iron supplementation Workup in the outpatient settings CKD (chronic kidney disease), stage III Creatinine at baseline Continue to monitor Diabetes mellitus Diabetes diet Patient refused Insulin sliding scale. Continue to monitor blood glucose level LAKESHIA (obstructive sleep apnea) CPAP overnight Depression/PTSD/anxiety Psych team consulted patient, patient was found to have depression, anxiety. Recommended start 25 mgs PO TID and see how he responds and decrease dose of bupropion which can be cause of increased anxiety DISCHARGE MEDICATIONS: Please see below. ALLERGIES: Please see below. PHYSICAL EXAMINATION ON DISCHARGE: VITAL SIGNS: Please see below. GENERAL APPEARANCE: NAD HEENT: no scleral icterus, plus JVD, EOMI CARDIOVASCULAR: S1S2 LUNGS: Diminished lung sounds bilaterally ABDOMEN: soft & not tender w palpitation MUSCULOSKELETAL: no cyanosis, no edema edema INTEGUMENT: no generalized pallor NEUROLOGICAL: cranial nerve function from 2-12 intact intact, follows commands, speech not dysarthric LABORATORY DATA: Please see below. IMAGING: See above PROGNOSIS: Fair ACTIVITY: [As tolerated]. DIET: Cardiac ITEMS TO FOLLOWUP ON ON OUTPATIENT: Follow-up with motors assembler Dr. Helms and PCP DISCHARGE CONDITION: [Stable]. TIME SPENT ON DISCHARGE: 40minutes. Vital Signs/I&Os Vital Signs Date Time Temp Pulse Resp B/P (MAP) Pulse Ox O2 Delivery O2 Flow Rate FiO2 03/04/21 09:09 103 111/73 03/04/21 06:00 97.4 18 94 Room Air 03/03/21 20:40 3.0 I&O- Last 24 Hours up to 6 AM 03/04/21 06:00 Intake Total 1675 ml Output Total 3875 ml Balance -2200 ml Laboratory Data Labs 24H Laboratory Tests 2 03/03/21 16:54: Bedside Glucose (Misc Panel) 241H 03/03/21 19:39: Bedside Glucose (Misc Panel) 226H 03/04/21 04:43: Immature Granulocyte % (Auto) 4.3H, Neutrophils (%) (Auto) 70.3H, Lymphocytes (%) (Auto) 16.7L, Monocytes (%) (Auto) 7.1, Eosinophils (%) (Auto) 1.2, Basophils (%) (Auto) 0.4, Neutrophils # (Auto) 7.6, Lymphocytes # (Auto) 1.8, Monocytes # (Auto) 0.8, Eosinophils # (Auto) 0.1, Basophils # (Auto) 0.0, Nucleated Red Blood Cells % (auto) 0.0, Anion Gap 6L, Glomerular Filtration Rate 51.9, Calcium Level 8.4L, Magnesium Level 2.1, Total Bilirubin 0.3, Aspartate Amino Transf (AST/SGOT) 7, Alanine Aminotransferase (ALT/SGPT) 20, Alkaline Phosphatase 91, Total Protein 6.1L, Albumin 3.1L, Albumin/Globulin Ratio 1.0 03/04/21 11:24: Bedside Glucose (Misc Panel) 196H 03/04/21 12:10: Anion Gap 9, Glomerular Filtration Rate 46.9, Calcium Level 8.7L CBC/BMP Laboratory Tests 03/04/21 04:43 03/04/21 12:10 FSBS Laboratory Tests Test 03/03/21 16:54 03/03/21 19:39 03/04/21 11:24 Range/Units Bedside Glucose (Misc Panel) 241 226 196 83-110 MG/DL Microbiology Microbiology 02/26/21 Blood Culture - Final, Complete NO GROWTH AFTER 5 DAYS 02/26/21 Blood Culture - Final, Complete NO GROWTH AFTER 5 DAYS Discharge Medications Scheduled Ascorbic Acid (Vitamin C) 250 Mg Tablet, 250 MG PO DAILY, (Reported) Bupropion Hcl (Bupropion HCl Sr) 100 Mg Tab.sr.12h, 100 MG PO DAILY Cholecalciferol (Vitamin D3) (Vitamin D3) 25 Mcg Tablet, 25 MCG PO DAILY, (Reported) Docusate Sodium (Docusate Sodium) 100 Mg Cap, 200 MG PO BID, (Reported) Ferrous Gluconate (Ferrous Gluconate) 324 Mg Tab, 648 MG PO BID, (Reported) Finasteride (Finasteride) 5 Mg Tab, 5 MG PO DAILY, (Reported) Glipizide (Glipizide) 5 Mg Tab, 2.5 MG PO DAILY, (Reported) TAKES BEFORE BREAKFAST Melatonin (Melatonin) 5 Mg Tablet, 5 MG PO QHS, (Reported) Metoprolol Tartrate (Metoprolol Tartrate) 25 Mg Tab, 12.5 MG PO BID, (Reported) Midodrine HCl (Midodrine HCl) 5 Mg Tablet, 5 MG PO 08,12,16 Omeprazole (Omeprazole) 20 Mg Tab, 40 MG PO DAILY, (Reported) Potassium Chloride (Klor-Con M10) 10 Meq Tab.er.prt, 30 MEQ PO DAILY Prednisone (Prednisone) 20 Mg Tablet, 20 MG PO BID Quetiapine Fumarate (Quetiapine Fumarate) 25 Mg Tablet, 25 MG PO BID Rivaroxaban (Xarelto) 15 Mg Tablet, 15 MG PO QHS, (Reported) Sertraline Hcl (Zoloft) 100 Mg Tablet, 200 MG PO DAILY, (Reported) Simvastatin (Zocor) 80 Mg Tablet, 40 MG PO QHS, (Reported) Sulfamethoxazole/Trimethoprim (Sulfamethoxazole-Tmp Ds Tablet) 1 Each Tablet, 1 TAB PO MoWeFr@09 Tamsulosin HCl (Flomax) 0.4 Mg Capsule, 0.4 MG PO QHS Torsemide (Torsemide) 10 Mg Tablet, 1 TAB PO DAILY Scheduled PRN Cetirizine HCl (Cetirizine HCl) 10 Mg Tablet, 10 MG PO DAILY PRN for ALLERGIES, (Reported) Clotrimazole (Clotrimazole) 1% 30GM Cream..g., 1 DOSE TOP BID PRN for RASH, (Reported) APPLIES TO GROIN AND LEGS NEEDED FOR YEAST INFECTION Simethicone (Simethicone) 80 Mg Tab.chew, 160 MG PO ACHS PRN for GAS PAIN, (Reported) Allergies Coded Allergies: amlodipine (Verified Allergy, Unknown, 04/27/19) atenolol (Verified Allergy, Unknown, 04/27/19) albuterol (Verified Adverse Reaction, Mild, increased HR, 04/01/20) JUAN CANADA DO Mar 04, 2021 13:55
[2021-03-04 14:00] VITALS: BP 108/68
[2021-03-04 18:50] LABS: CALCIUM LEVEL 8.8 MG/DL (8.8-10.2); CREATININE FOR GFR 1.73 MG/DL (0.70-1.30); GLOMERULAR FILTRATION RATE 41.7 (>42); POTASSIUM SERUM 4.2 MEQ/L (3.5-5.1)
[2021-03-04] MEDS: SIMVASTATIN 40 MG TAB PO SCH (20:07)
[2021-03-04] MEDS: RIVAROXABAN 15 MG TAB (XARELTO) PO SCH (20:07)
[2021-03-04] MEDS: TAMSULOSIN 0.4 MG CAP PO SCH (20:07)
[2021-03-04 22:00] VITALS: BP 109/69
[2021-03-05 00:22] LABS: CALCIUM LEVEL 9.2 MG/DL (8.8-10.2); CREATININE FOR GFR 2.09 MG/DL (0.70-1.30); GLOMERULAR FILTRATION RATE 33.5 (>42); POTASSIUM SERUM 3.8 MEQ/L (3.5-5.1)
[2021-03-05 05:37] LABS: BASO % 0.4 % (0.0-1.0); EOS # 0.1 10^3/uL (0.0-0.5); EOS % 0.9 % (0.0-3.0); HEMATOCRIT 37.6 % (42.0-52.0); HEMOGLOBIN 11.5 g/dl (13.5-17.5); LYMPH % 17.7 % (24.0-44.0); MEAN CORPUSCULAR HEMOGLOBIN 23.7 pg (27.0-33.0); MEAN CORPUSCULAR HGB CONC 30.6 g/dl (32.0-36.5); MEAN CORPUSCULAR VOLUME 77.5 fl (80.0-96.0); MONO # 0.8 10^3/uL (0.0-0.8); MONO % 7.4 % (2.0-8.0); NEUTROPHILS # 7.9 10^3/uL (1.5-8.5); NEUTROPHILS % 69.7 % (36.0-66.0); PLATELET COUNT, AUTOMATED 216 10^3/uL (150-450); RED BLOOD COUNT 4.85 10^6/uL (4.30-6.10); WHITE BLOOD COUNT 11.3 10^3/uL (4.0-10.0)
[2021-03-05 06:00] VITALS: BP 100/61
[2021-03-05 06:01] LABS: ALBUMIN 3.3 GM/DL (3.2-5.2); BILIRUBIN,TOTAL 0.3 MG/DL (0.2-1.0); CALCIUM LEVEL 8.8 MG/DL (8.8-10.2); CREATININE FOR GFR 1.91 MG/DL (0.70-1.30); GLOMERULAR FILTRATION RATE 37.2 (>42); MAGNESIUM LEVEL 2.1 MG/DL (1.8-2.4); POTASSIUM SERUM 3.2 MEQ/L (3.5-5.1); TOTAL PROTEIN 6.2 GM/DL (6.4-8.2)
[2021-03-05] MEDS: HumaLOG INSULIN (NovoLOG) PER UNIT SC SCH ×2 (07:22→12:00)
[2021-03-05] MEDS: FUROSEMIDE 20MG/2ML VIAL (J1940) IV SCH (09:00)
[2021-03-05] MEDS: metOLazone 5 MG TAB PO SCH (09:37)
[2021-03-05] MEDS: POTASSIUM CHLORIDE 10 MEQ SR TABLET PO SCH (09:39)
[2021-03-05] MEDS: predniSONE 20 MG TAB PO SCH (09:42)
[2021-03-05] MEDS: OMEPRAZOLE 20 MG CAP PO SCH (09:42)
[2021-03-05 09:43] VITALS: BP 108/68
[2021-03-05] MEDS: QUEtiapine FUMARATE 25 MG TAB PO SCH (09:43)
[2021-03-05] MEDS: FERROUS GLUCONATE 324 MG TAB PO SCH (09:43)
[2021-03-05] MEDS: DOCUSATE SODIUM 100MG CAPSULE PO SCH (09:43)
[2021-03-05] MEDS: METOPROLOL TART 12.5 MG PER 1/2 TAB PO SCH (09:43)
[2021-03-05] MEDS: SERTRALINE 100 MG TAB PO SCH (09:43)
[2021-03-05] MEDS: FINASTERIDE 5 MG TAB PO SCH (09:44)
[2021-03-05] MEDS: MIDODRINE 5 MG TAB PO SCH ×2 (09:44→12:19)
[2021-03-05] MEDS: buPROPion (WELLBUTRIN SR) 100 MG SR TAB PO SCH (09:44)
[2021-03-05] MEDS: ASCORBIC ACID 250 MG TAB PO SCH (09:44)
[2021-03-05] MEDS ORDERED: POTASSIUM CHLORIDE 10 MEQ SR TABLET PO ONE (12:00)
[2021-03-05] MEDS ORDERED: TORS10TA3 PO (17:12)
[2021-03-05] MEDS ORDERED: FLOM0.4C39 PO (17:12)
[2021-03-05] MEDS ORDERED: PRED20TA PO (17:12)
[2021-03-05] MEDS ORDERED: BACTDSTA PO (17:12)
[2021-03-05] MEDS ORDERED: MIDO5TA PO (17:12)
[2021-03-05] MEDS ORDERED: BUPR10TASR PO (17:12)
[2021-03-05] MEDS ORDERED: QUET25TA3 PO (17:12)
== END 2021-03-05 13:28 | disposition home or self-care (01) | DRG 291 ==
LOC: M ED 14:33 → EDBD 14:33 → M ED INP 18:21 → ENRESERV 19:18 → M MSPAV 20:05
PROVIDERS: ADMIT Internal Medicine; ATTEND Internal Medicine
DX: I13.0 Hypertensive heart and chronic kidney disease with heart failure and stage 1 through stage 4 chronic kidney disease, or unspecified chronic kidney disease (principal); I50.33 Acute on chronic diastolic (congestive) heart failure; J96.01 Acute respiratory failure with hypoxia; J18.9 Pneumonia, unspecified organism; J84.03 Idiopathic pulmonary hemosiderosis; F33.9 Major depressive disorder, recurrent, unspecified; I48.20 Chronic atrial fibrillation, unspecified; E27.40 Unspecified adrenocortical insufficiency; E83.19 Other disorders of iron metabolism; N40.0 Benign prostatic hyperplasia without lower urinary tract symptoms; N18.30 Chronic kidney disease, stage 3 unspecified; Z66 Do not resuscitate; E11.22 Type 2 diabetes mellitus with diabetic chronic kidney disease; G47.33 Obstructive sleep apnea (adult) (pediatric); D64.9 Anemia, unspecified; K21.9 Gastro-esophageal reflux disease without esophagitis; Z79.01 Long term (current) use of anticoagulants; Z79.52 Long term (current) use of systemic steroids; Z79.84 Long term (current) use of oral hypoglycemic drugs; Z79.899 Other long term (current) drug therapy; Z88.8 Allergy status to other drugs, medicaments and biological substances; I27.20 Pulmonary hypertension, unspecified; K44.9 Diaphragmatic hernia without obstruction or gangrene; Z87.891 Personal history of nicotine dependence; Z20.822 Contact with and (suspected) exposure to COVID-19

== ENCOUNTER 2021-04-09 15:41 | Inpatient (IN) | payer OTHER ==
[~2021-04-09] VITALS: Ht 175.3 cm; Wt 103.1 kg
[~2021-04-09 15:41] MED LIST changes: +BACTDSTA PO; +BUPR10TASR PO; +FLOM0.4C39 PO; +MIDO5TA PO; +OMEP40CA4 PO; -OMEP40CA97 PO; +QUET25TA3 PO; +TORS10TA3 PO; +VANCOMYCIN HCL 1,000 MG, VIAL MATE ADAPTER 1 EACH in NS 250 ML IV ONE
--- NOTE | 2021-04-09 17:01 | REP ---
INDICATION: DYSPNEA/COUGH COMPARISON: 02/26/2021 TECHNIQUE: Portable AP view of the chest FINDINGS: Stable cardiomegaly and diffuse advanced COPD/emphysematous changes. Superimposed bilateral airspace disease cannot be excluded. No obvious effusion. No pneumothorax. Skeletal structures intact. IMPRESSION: Chronic COPD/emphysematous changes with superimposed bilateral airspace disease. <Electronically signed by Abraham Randolph > 04/09/21 [id number]
[2021-04-09 17:06] LABS: BASO % 0.1 % (0.0-1.0); EOS % 0.1 % (0.0-3.0); HEMOGLOBIN 11.5 g/dl (13.5-17.5); LYMPH # 0.4 10^3/uL (1.5-5.0); LYMPH % 2.7 % (24.0-44.0); MEAN CORPUSCULAR HEMOGLOBIN 25.6 pg (27.0-33.0); MEAN CORPUSCULAR HGB CONC 31.1 g/dl (32.0-36.5); MEAN CORPUSCULAR VOLUME 82.4 fl (80.0-96.0); MONO # 0.7 10^3/uL (0.0-0.8); MONO % 5.1 % (2.0-8.0); NEUTROPHILS # 12.6 10^3/uL (1.5-8.5); NEUTROPHILS % 90.7 % (36.0-66.0); PLATELET COUNT, AUTOMATED 162 10^3/uL (150-450); RED BLOOD COUNT 4.49 10^6/uL (4.30-6.10); WHITE BLOOD COUNT 13.9 10^3/uL (4.0-10.0)
[2021-04-09 17:21] LABS: INR 1.13; PROTHROMBIN TIME 14.8 SECONDS (12.5-14.3)
[2021-04-09 17:50] LABS: ALBUMIN 2.8 GM/DL (3.2-5.2); BILIRUBIN,DIRECT 0.3 MG/DL (0.0-0.2); CALCIUM LEVEL 8.4 MG/DL (8.8-10.2); CREATININE FOR GFR 1.48 MG/DL (0.70-1.30); GLOMERULAR FILTRATION RATE 49.9 (>42); POTASSIUM SERUM 4.4 MEQ/L (3.5-5.1); THYROID STIMULATING HORMONE 0.918 uIU/ML (0.358-3.740); TOTAL PROTEIN 5.6 GM/DL (6.4-8.2)
[2021-04-09] MEDS ORDERED: ISOVUE-370 76% 100ML VIAL As Ordered ONE (18:28)
[2021-04-09] MEDS ORDERED: PANT20TA51 PO (18:41)
[2021-04-09] MEDS ORDERED: FLOM0.4C39 PO (18:41)
[2021-04-09] MEDS ORDERED: PRED20TA PO (18:41)
[2021-04-09] MEDS ORDERED: BUPR1TAB52 PO ×2 (18:41)
[2021-04-09] MEDS ORDERED: POTA10TA16 PO (18:41)
[2021-04-09] MEDS ORDERED: TORS10TA3 PO (18:42)
[2021-04-09] MEDS ORDERED: DEXTROSE 50% 50 ML SYRINGE IV PRN (19:00)
[2021-04-09] MEDS ORDERED: GLUCAGON INJ 1MG VIAL SC PRN (19:00)
[2021-04-09] MEDS ORDERED: MOM 30ML SUSPENSION UDC PO PRN (19:00)
[2021-04-09] MEDS ORDERED: GLUCOSE 4GM CHEW TABLET PO PRN (19:00)
[2021-04-09] MEDS ORDERED: MAALOX 30 ML SUSP *UDC PO PRN (19:00)
[2021-04-09] MEDS ORDERED: ACETAMINOPHEN TAB 650MG DOSE (2X325MG) PO PRN (19:00)
[2021-04-09] MEDS ORDERED: CLOTRIMAZOLE 1% TOPICAL CREAM 30GM TOP PRN (19:10)
[2021-04-09] MEDS ORDERED: SIMETHICONE 80MG CHEW TAB PO PRN (19:10)
[2021-04-09] MEDS ORDERED: RAMELTEON 8 MG TAB (ROZEREM) PO PRN (19:10)
[2021-04-09] MEDS ORDERED: CETIRIZINE (ZyrTEC) 10 MG TAB PO PRN (19:10)
--- NOTE | 2021-04-09 19:14 | HPEPDOC ---
[facility] Medical History & Physical Date of Admission Apr 09, 2021 Date of Service: Apr 09, 2021 Attending Physician: NEERU MUÑOZ MD History and Physical CHIEF COMPLAINT: [70 y/o male c/o increasing sob x3 days] HISTORY OF PRESENT ILLNESS: [This is a 70 y/o male with a pmh of idiopathic pulmonary hemosiderosis, copd s/p wedge resection, chf, cad, hld, a-fib on xarelto, htn, lakeshia on cpap, ckd3, bph and dm2 who presents to the ed complaining of worsening sob x3 days. Patient states that he is chronically on 3L of o2 at home, and in the past few days, his daughter had to turn this up to 5L and he st ill received no relief. Patient states that if he sits still he is fine, but becomes markedly sob with any sort of activity. Patient tells me that about a week ago, he experienced hemoptysis that he describes as one episode a day for 3 days that resolved on its own. Patient states that coughing up the blood made him feel better. Patient states that his symptoms he is complaining of today then began a few days later. Patient complains of mild edema to his legs and some chest pressure when he is very sob. Patient at the time of my exam is denying any fevers, chills, cough with productive sputum, wheezing, further hemoptysis, n/v/d/c, abd pain, calf pain, syncope, dizziness.] PAST MEDICAL HISTORY: 1. [See HPI PAST SURGICAL HISTORY: 1. [Left cataract removal with lens implant]. 2. [Left retinal repair]. 3. [Pulmonary wedge resection 4. Pulmonary biopsy 5. Bronchoscopy x2]. SOCIAL HISTORY: Tobacco use:[Former] ETOH: [Denies] Illicit drug use: [Denies] FAMILY HISTORY: Father - cad Mother - DM, carcinomas ALLERGIES: Please see below. REVIEW OF SYSTEMS: CONSTITUTIONAL: [See HPI]. HEENT: [Denies uri sx]. CARDIOVASCULAR: [Denies chest pain, palpitations]. RESPIRATORY: [See HPI]. GASTROINTESTINAL: [See HPI]. GENITOURINARY: [Denies dysuria]. SKIN: [Denies rash]. MUSCULOSKELETAL: [Denies acute joint/back pain]. NEUROLOGICAL: [Denies syncope, paresthesias]. ENDOCRINE: [Hx of DM]. HEMATOLOGIC/LYMPHATIC: [Denies easy bruising]. HOME MEDICATIONS: Please see below. PHYSICAL EXAMINATION: VITAL SIGNS: Please see below. GENERAL APPEARANCE: [This is an overweight 70 y/o male. He is laying in bed and does not appear to be in any acute distress. Patient does become sob with movement during physical exam.]. HEENT: [No mass or lesion. EOMI. No scleral icterus. Nares patent. oral mucosa moist.]. CARDIOVASCULAR: [Irregularly irregular rhythm. Borderline tachycardia.]. LUNGS: [Decreased lung sounds b/l. No wheezing, rales, rhonchi.]. ABDOMEN: [Soft, nontender.]. MUSCULOSKELETAL: [No joint deformity]. EXTREMITIES: [+1 pitting edema to b/l lower extremities. No overlying skin changes. Pulses palpable.]. NEUROLOGICAL: [Speech clear. A+Ox3. No focal deficits.]. PSYCHIATRIC: [Mood and affect appear appropriate.]. LABORATORY DATA: See below. IMAGING: [CXR: FINDINGS: Stable cardiomegaly and diffuse advanced COPD/emphysematous changes. Superimposed bilateral airspace disease cannot be excluded. No obvious effusion. No pneumothorax. Skeletal structures intact. IMPRESSION: Chronic COPD/emphysematous changes with superimposed bilateral airspace disease. CTA Chest: FINDINGS: Pulmonary arteries: There are no pulmonary emboli. Aorta: There is fusiform dilatation of the ascending thoracic aorta which measures 3.8 cm. maximally. There is no dissection or saccular component. There is mild atherosclerosis in the thoracic aorta. Lungs: Bilateral apical pleuroparenchymal scarring, right greater than left. Bilateral ground-glass semi-solid and solid pulmonary parenchymal opacities which have progressed in comparison to previously demonstrated bilateral ground-glass opacities. Findings consistent with multifocal organizing pneumonitis. Calcified parenchymal scarring in the right lower lobe. Calcified granuloma right upper lobe. Pleural spaces: Unremarkable. No pneumothorax. No pleural effusion. Heart: There is severe atherosclerotic calcification of the coronary arteries. Lymph nodes: Multiple small mediastinal lymph nodes likely postinflammatory. Bones/joints: Old healed rib fractures right 6th through 9th ribs. The spine demonstrates moderate degenerative changes. Soft tissues: Unremarkable. IMPRESSION: 1. Bilateral ground-glass semi-solid and solid pulmonary parenchymal opacities which have progressed in comparison to previously demonstrated bilateral ground-glass opacities. Findings consistent with multifocal organizing pneumonitis. 2. There is fusiform dilatation of the ascending thoracic aorta which measures 3.8 cm. maximally. There is no dissection or saccular component. 3. There are no pulmonary emboli. 4. Findings consistent with remote intrathoracic granulomatous infection. ] MICROBIOLOGY: Please see below. ASSESSMENT: [This is a 70 y/o male with a pmh of idiopathic pulmonary hemosiderosis, copd s/p wedge resection, chf, cad, hld, a-fib on xarelto, htn, lakeshia on cpap, ckd3, bph and dm2 who presents to the ed complaining of worsening sob x3 days. Upon presentation, patient does meet sepsis criteria with tachycardia of 110, respirations of 22, wbc of 13.9, lactic acidosis of 2.2 and multifocal organizing pneumonia on ct imaging. Clinically, patient is volume overloaded.]. . PLAN: 1. [Hypoxia 2/2 Pneumonia with underlying idiopathic pulmonary hemosiderosis and COPD - Case d/w Dr. Hitchcock, pulmonology, at length - recommends iv abx, diuresis, continuation of at home steroid dose - Most likely community acquired. Patient is on chronic steroids so is considered immunosuppressed. Day team can consider ID consult to better guide abx coverage in this pt. - Patient meets sepsis criteria as stated above, however lactic acidosis may be due more to hypoxia in this case, and tachycardia was transient without treatment. - Will begin levaquin for coverage - will continue patients at home chronic o2 - will titrate to 88-92% - holding off on ivf as patient is fluid overloaded - will continue patients at home steroid prednisone 20mg bid - patient not on inhalers at home - has allergy to albuterol - continue at home iron supplements - admit to pcu with tele for tx 2. Acute CHF exacerbation - patients bnp is elevated at over 1300, is fluid overloaded on exam - likely contributes to patients sob - will begin lasix 40mg iv bid - monitor is and os - daily weights 3. DM2 - sliding scale coverage - hypoglycemic protocol 4. A-fib - patient was transiently tachycardic to 110s in the ED - will monitor rate on telemetry - continue metoprolol, xarelto 5. GERD - continue protonix 6. HTN - metoprolol, as stated 7. HLD - continue simvastatin 8. BPH - continue flomax, proscar 9. Depression - continue zoloft, wellbutrin DVT prophylaxis - patient on xarelto]. Vital Signs Vital Signs Date Time Temp Pulse Resp B/P (MAP) Pulse Ox O2 Delivery O2 Flow Rate FiO2 04/09/21 18:15 87 22 124/73 (90) 95 Nasal Cannula 4.0 Laboratory Data Labs 24H Laboratory Tests 2 04/09/21 16:39: POC pH (Misc Panel) 7.489H, POC Base Excess (Misc Panel) -3.0L, POC Saturated Pe rcent O2 (Misc) 88L, POC pO2 (Misc Panel) 49.0*L, POC pCO2 (Misc Panel) 27.4L, POC HCO3 (Misc Panel) 20.8L, POC Total CO2 (Misc Panel) 22.0L 04/09/21 16:44: Immature Granulocyte % (Auto) 1.3, Neutrophils (%) (Auto) 90.7H, Lymphocytes (%) (Auto) 2.7L, Monocytes (%) (Auto) 5.1, Eosinophils (%) (Auto) 0.1, Basophils (%) (Auto) 0.1, Neutrophils # (Auto) 12.6H, Lymphocytes # (Auto) 0.4L, Monocytes # (Auto) 0.7, Eosinophils # (Auto) 0.0, Basophils # (Auto) 0.0, Nucleated Red Blood Cells % (auto) 0.0, Prothrombin Time 14.8H, Prothromb Time International Ratio 1.13, Anion Gap 8, Glomerular Filtration Rate 49.9, Lactic Acid Level 2.2*H, Calcium Level 8.4L, Total Bilirubin 1.0, Direct Bilirubin 0.3H, Aspartate Amino Transf (AST/SGOT) 18, Alanine Aminotransferase (ALT/SGPT) 16, Alkaline Phosphatase 63, PA-Arl-R-Type Natriuretic Peptide 1359H, Total Protein 5.6L, Albumin 2.8L, Albumin/Globulin Ratio 1.0, Thyroid Stimulating Hormone (TSH) 0.918 04/09/21 17:20: POC Troponin I (Misc) 0.00 CBC/BMP Laboratory Tests 04/09/21 16:44 Microbiology Microbiology 04/09/21 Respiratory Virus Panel (PCR) (JULIEN) - Final, Complete 04/09/21 Blood Culture, Received Pending 04/09/21 Blood Culture, Received Pending Home Medications Scheduled Ascorbic Acid (Vitamin C) 250 Mg Tablet, 250 MG PO DAILY Bupropion HCl (Bupropion HCl Sr) 100 Mg Tab.sr.12h, 100 MG PO DAILY Cholecalciferol (Vitamin D3) (Vitamin D3) 25 Mcg Tablet, 25 MCG PO DAILY Docusate Sodium (Docusate Sodium) 100 Mg Cap, 200 MG PO BID Ferrous Gluconate (Ferrous Gluconate) 324 Mg Tab, 648 MG PO BID Finasteride (Finasteride) 5 Mg Tab, 5 MG PO DAILY Glipizide (Glipizide) 5 Mg Tab, 2.5 MG PO DAILY TAKES BEFORE BREAKFAST Melatonin (Melatonin) 5 Mg Tablet, 5 MG PO QHS Metoprolol Tartrate (Metoprolol Tartrate) 25 Mg Tab, 12.5 MG PO BID Pantoprazole Sodium (Pantoprazole Sodium) 20 Mg Tablet.dr, 20 MG PO DAILY Potassium Chloride (Potassium Chloride) 10 Meq Tab.er.prt, 30 MEQ PO DAILY Prednisone (Prednisone) 20 Mg Tablet, 20 MG PO BID Rivaroxaban (Xarelto) 15 Mg Tablet, 15 MG PO QHS Sertraline Hcl (Zoloft) 100 Mg Tablet, 200 MG PO DAILY Simvastatin (Zocor) 80 Mg Tablet, 40 MG PO QHS Tamsulosin HCl (Flomax) 0.4 Mg Capsule, 0.4 MG PO DAILY Torsemide (Torsemide) 10 Mg Tablet, 10 MG PO DAILY Scheduled PRN Cetirizine HCl (Cetirizine HCl) 10 Mg Tablet, 10 MG PO DAILY PRN for ALLERGIES Clotrimazole (Clotrimazole) 1% 30GM Cream..g., 1 DOSE TOP BID PRN for RASH APPLIES TO GROIN AND LEGS NEEDED FOR YEAST INFECTION Simethicone (Simethicone) 80 Mg Tab.chew, 160 MG PO ACHS PRN for GAS PAIN Allergies Coded Allergies: amlodipine (Verified Allergy, Unknown, 04/27/19) atenolol (Verified Allergy, Unknown, 04/27/19) albuterol (Verified Adverse Reaction, Mild, increased HR, 04/01/20) A-FIB/CHADSVASC A-FIB History Current/History of A-Fib/PAF?: Yes Current PO Anticoag Therapy: Yes Attending Note Attending Note Time of service 9 PM is a 70-year-old with a history of atrial fibrillation, pacemaker placement, idiopathic pulmonary siderosis, NIDDM, chronic anemia, LAKESHIA on CPAP, HFpEF and CKD3 who presented with complaints of shortness of breath, especially with exertion, swollen legs. After his recent hospital admission he was referred to 's office but has not been able to set-up an appointment yet. His physical exam was remarkable for bilateral lower extremity edema, a vascular skin lesion on his back and a large hyperpigmented scar on the anterior right lower leg. His EKG showed A. fib with a rate of 82 and junctional paced rhythm Admitting diagnoses: #SIRS versus sepsis #Multifocal organizing pneumonia #Acute HFpEF likely due to pneumonia #Congestive nephropathy/cardiorenal syndrome #Class 1 obesity complicates his care He also has a lesion on his back; I instructed him to ask his PCP for a referral to a Senior Sales Associate for a skin exam. Rest per SARIAH Barahona's H&P SHARATH BARAHONA Apr 09, 2021 19:14 NEERU MUÑOZ MD Apr 09, 2021 23:24
--- NOTE | 2021-04-09 19:33 | REPVR ---
PROCEDURE INFORMATION: Exam: CTA Chest With Contrast Exam date and time: 04/09/2021 6:29 PM Age: 70 years old Clinical indication: Other: Hypoxia TECHNIQUE: Imaging protocol: Computed tomographic angiography of the chest with contrast. 3D rendering (Not supervised by radiologist): MIP and/or 3D reconstructed images were created by the technologist. Radiation optimization: All CT scans at this facility use at least one of these dose optimization techniques: automated exposure control; mA and/or kV adjustment per patient size (includes targeted exams where dose is matched to clinical indication); or iterative reconstruction. Contrast material: ISOVUE 370; Contrast volume: 75 ml; Contrast route: INTRAVENOUS (IV); COMPARISON: CT ANGIO CHEST 09/29/2018 5:58 PM FINDINGS: Pulmonary arteries: There are no pulmonary emboli. Aorta: There is fusiform dilatation of the ascending thoracic aorta which measures 3.8 cm. maximally. There is no dissection or saccular component. There is mild atherosclerosis in the thoracic aorta. Lungs: Bilateral apical pleuroparenchymal scarring, right greater than left. Bilateral ground-glass semi-solid and solid pulmonary parenchymal opacities which have progressed in comparison to previously demonstrated bilateral ground-glass opacities. Findings consistent with multifocal organizing pneumonitis. Calcified parenchymal scarring in the right lower lobe. Calcified granuloma right upper lobe. Pleural spaces: Unremarkable. No pneumothorax. No pleural effusion. Heart: There is severe atherosclerotic calcification of the coronary arteries. Lymph nodes: Multiple small mediastinal lymph nodes likely postinflammatory. Bones/joints: Old healed rib fractures right 6th through 9th ribs. The spine demonstrates moderate degenerative changes. Soft tissues: Unremarkable. IMPRESSION: 1. Bilateral ground-glass semi-solid and solid pulmonary parenchymal opacities which have progressed in comparison to previously demonstrated bilateral ground-glass opacities. Findings consistent with multifocal organizing pneumonitis. 2. There is fusiform dilatation of the ascending thoracic aorta which measures 3.8 cm. maximally. There is no dissection or saccular component. 3. There are no pulmonary emboli. 4. Findings consistent with remote intrathoracic granulomatous infection. Electronically signed by: Baldo Parisi On 04/09/2021 19:32:48 PM
[2021-04-09] MEDS ORDERED: LevoFLOXacin IV 750 MG in IV 1 EA IV SCH (21:00)
[2021-04-09] MEDS: HumaLOG INSULIN (NovoLOG) PER UNIT SC SCH (21:00)
[2021-04-09] MEDS ORDERED: FUROSEMIDE 20MG/2ML VIAL (J1940) IV SCH (21:00)
[2021-04-09] MEDS: DOCUSATE SODIUM 100MG CAPSULE PO SCH (21:43)
[2021-04-09] MEDS: FUROSEMIDE 40MG/4ML VIAL (J1940) IV SCH (21:43)
[2021-04-09] MEDS: METOPROLOL TART 12.5 MG PER 1/2 TAB PO SCH (21:45)
[2021-04-09] MEDS: RIVAROXABAN 15 MG TAB (XARELTO) PO SCH (21:45)
[2021-04-09] MEDS: predniSONE 20 MG TAB PO SCH (21:45)
[2021-04-09] MEDS: SIMVASTATIN 40 MG TAB PO SCH (21:45)
[2021-04-09 23:20] VITALS: BP 117/78
[2021-04-09] MEDS ORDERED: VANCOMYCIN HCL 1,000 MG, VIAL MATE ADAPTER 1 EACH in NS 250 ML IV SCH (23:20)
[2021-04-09] MEDS: FERROUS GLUCONATE 324 MG TAB PO SCH (23:30)
[2021-04-10] VITALS: BP 117/78
[2021-04-10 00:09] LABS: PHOSPHORUS LEVEL 2.9 MG/DL (2.5-4.9); URIC ACID 6.7 MG/DL (3.5-7.2)
[2021-04-10 00:56] LABS: ABG BASE EXCESS 0.6 (-2.0-2.0); ABG HCO3 23.4 MEQ/L (22.0-26.0); ABG O2 SATURATION 94.2 % (95.0-99.0); ABG PARTIAL PRESSURE CO2 32.1 mmHg (35.0-45.0); ABG PARTIAL PRESSURE O2 66.1 mmHg (75.0-100.0); ABG STANDARD HCO3 24.9 MEQ/L (22.0-26.0); ABG TOTAL CO2 24.4 MEQ/L (23.0-31.0); ABG pH (ARTERIAL) 7.481 UNITS (7.350-7.450)
[2021-04-10] MEDS ORDERED: VANCOMYCIN HCL 1,000 MG, VIAL MATE ADAPTER 1 EACH in NS 250 ML IV ONE ×4 (01:00)
[2021-04-10 02:08] LABS: OSMOLALITY URINE 356 MOSM/KG (50-1400)
[2021-04-10 02:33] LABS: CREATININE,RANDOM URINE < 13.0 MG/DL; POTASSIUM RANDOM URINE 34.4 MEQ/L; SODIUM,RANDOM URINE 113 MEQ/L
[2021-04-10 04:00] VITALS: BP 109/67
[2021-04-10 06:12] LABS: HEMATOCRIT 36.3 % (42.0-52.0); MEAN CORPUSCULAR HEMOGLOBIN 24.9 pg (27.0-33.0); MEAN CORPUSCULAR HGB CONC 30.3 g/dl (32.0-36.5); MEAN CORPUSCULAR VOLUME 82.3 fl (80.0-96.0); PLATELET COUNT, AUTOMATED 165 10^3/uL (150-450); RED BLOOD COUNT 4.41 10^6/uL (4.30-6.10); WHITE BLOOD COUNT 10.2 10^3/uL (4.0-10.0)
[2021-04-10 06:36] LABS: CALCIUM LEVEL 8.5 MG/DL (8.8-10.2); CREATININE FOR GFR 1.37 MG/DL (0.70-1.30); GLOMERULAR FILTRATION RATE 54.5 (>42); MAGNESIUM LEVEL 2.2 MG/DL (1.8-2.4); POTASSIUM SERUM 4.1 MEQ/L (3.5-5.1)
[2021-04-10] MEDS: HumaLOG INSULIN (NovoLOG) PER UNIT SC SCH ×4 (07:30→21:00)
[2021-04-10 08:00] VITALS: BP 115/64
[2021-04-10] MEDS: METOPROLOL TART 12.5 MG PER 1/2 TAB PO SCH ×2 (08:41→21:04)
[2021-04-10] MEDS: buPROPion (WELLBUTRIN SR) 100 MG SR TAB PO SCH (08:41)
[2021-04-10] MEDS: FERROUS GLUCONATE 324 MG TAB PO SCH ×2 (08:41→21:04)
[2021-04-10] MEDS: FINASTERIDE 5 MG TAB PO SCH (08:42)
[2021-04-10] MEDS: PANTOPRAZOLE 20 MG TAB PO SCH (08:42)
[2021-04-10] MEDS: predniSONE 20 MG TAB PO SCH ×2 (08:42→21:04)
[2021-04-10] MEDS: SERTRALINE 100 MG TAB PO SCH (08:42)
[2021-04-10] MEDS: TAMSULOSIN 0.4 MG CAP PO SCH (08:42)
[2021-04-10] MEDS: DOCUSATE SODIUM 100MG CAPSULE PO SCH ×2 (08:43→21:04)
[2021-04-10] MEDS: FUROSEMIDE 40MG/4ML VIAL (J1940) IV SCH ×2 (08:43→21:05)
[2021-04-10] MEDS: POTASSIUM CHLORIDE 10 MEQ SR TABLET PO SCH ×2 (08:44→08:45)
[2021-04-10 09:43] LABS: APPEARANCE, URINE CLEAR (CLEAR); BACTERIA, URINE AUTO NEGATIVE (NEGATIVE); BILIRUBIN, URINE AUTO NEGATIVE (NEGATIVE); BLOOD, URINE BLOOD NEGATIVE (NEGATIVE); COLOR, URINE STRAW (YELLOW); GLUCOSE, URINE (UA) AUTO NEGATIVE (NEGATIVE); KETONE, URINE AUTO NEGATIVE (NEGATIVE); LEUKOCYTE ESTERASE, URINE AUTO NEGATIVE (NEGATIVE); NITRITE, URINE AUTO NEGATIVE (NEGATIVE); PROTEIN, URINE AUTO NEGATIVE (NEGATIVE); RBC, URINE AUTO 0 /HPF (0-3); SQUAMOUS EPITHELIAL CELL UR AU 0 /HPF (0-6); UROBILINOGEN, URINE AUTO 0.2 mg/dL (0.0-2.0); WBC, URINE AUTO 1 /HPF (0-3)
[2021-04-10 10:43] LABS: PTH INTACT 59.9 PG/ML (18.5-88.0)
[2021-04-10 12:00] VITALS: BP 128/79
[2021-04-10] MEDS: TIOTROPIUM INHALER/CAPSULE (SPIRIVA) INH SCH ×2 (13:55→14:33)
[2021-04-10 16:00] VITALS: BP 130/75
[2021-04-10] MEDS ORDERED: VANCOMYCIN HCL 750 MG, VIAL MATE ADAPTER 1 EACH in NS 250 ML IV SCH ×2 (16:00→17:00)
[2021-04-10] MEDS ORDERED: HumaLOG INSULIN (NovoLOG) PER UNIT SC ONE (17:25)
[2021-04-10] MEDS ORDERED: SLF 3 ML SYR IV PRN (18:10)
--- NOTE | 2021-04-10 18:34 | IPNPDOC ---
Date Seen The patient was seen on 04/10/21. Progress Note SUBJECTIVE: Mr. Quintero is a pleasant 70 year old male who was sitting in his hospital bed taking his morning medications when I walked into the room. He states that he did not sleep well last night because he was constantly having to urinate secondary to the lasix. His breathing is improved today and he is comfortably breathing on 3L of oxygen which is his baseline at home. He also states that his ankles do not appear to be as swollen as they were yesterday. Mr. Quintero is concerned about his health and does not believe he was prescribed enough lasix upon his last discharge from the hospital. He denies fever, chills, chest pain, nausea, vomiting, abdominal pain, dizziness, diarrhea, or increased swelling in his ankles. He lives with his daughter Karolyn, her , and his ex-. He was previously in the [employer] and receives his medical treatment from the [facility] in [place]. OBJECTIVE PHYSICAL EXAMINATION: VITAL SIGNS: Please see below. GENERAL: A well nourished elderly male sitting in bed in no acute distress HEENT: PERRLA, EOMI, mucous membranes are moist and pink, trachea midline, no lymphadenopathy appreciated CARDIOVASCULAR: Irregularly irregular rhythm, distant heart sounds, soft systolic murmur heard in second ICS to the right RESPIRATORY: distant lung sounds, bilateral crackles noted, equal inspiration bilaterally. ABDOMINAL: Distended, positive bowel sounds, no tenderness to palpation in all four quadrants EXTREMITIES: Ecchymosis noted on right anterior portion of lower extremity distal to knee, trace edema noted bilaterally PSYCHOLOGICAL: alert and oriented x 3 LABORATORY DATA, IMAGING STUDIES, MICROBIOLOGY: Please see below. CTA 04/09/21: Impression: Bilateral ground-glass semi-solid and solid pulmonary parenchymal opacities which have progressed in comparison to previously demonstrated bilateral ground-glass opacities. Findings consistent with multifocal organizing pneumonitis. There is fusiform dilatation of the ascending thoracic aorta which measures 3.8 cm. maximally. There is no dissection or saccular component. There are no pulmonary emboli. Findings consistent with remote intrathoracic granulomatous infection. Chest x-ray 04/09/21: Impression: Chronic COPD/emphysematous changes with superimposed bilateral airspace disease Echocardiogram: Ordered dopplar echo 04/10/21 Previous echo 02/14/21: Impression: 1. Study is of fair technical quality, underlying atrial fibrillation with controlled rate. 2. Normal LV size with grossly preserved LV systolic function. 3. Dilated hypokinetic right ventricle. 4. Severe biatrial enlargement. 5. Prominent aortic sclerosis with trace insufficiency and unknown degree of st enosis based on 2D imaging, though I do not believe there is the likelihood of severe aortic stenosis. 6. Trace mitral insufficiency. 7. Mild tricuspid insufficiency. 8. High central venous pressure and at least mild pulmonary hypertension. DVT prophylaxis ordered?: yes, continue xarelto ASSESSMENT AND PLAN: Mr. Quintero is a 70 year old male with pmhx of Idiopathic pulmonary hemosiderosis, diastolic congestive heart failure EF 60-65%, COPD s/p wedge resection, Coronary artery disease, hyperlipidemia, atrial fibrillation, hypertension, obstructive sleep apnea, CKD stage 3, and T2DM who presented to the ED with three days of worsening shortness of breath and hypoxia and was found to be in acute hypoxic respiratory failure. PROBLEMS: #Hypoxic respiratory failure -likely multifactorial and secondary to diastolic congestive heart failure, COPD, and unlikely pneumonia -CTA 04/09/21 was slightly worse than Chest CT 02/26/21 -Patient states he had an oxygen saturation in the low 70's on 5LNC on Saturday, when he presented to the ED his oxygen saturation was 87% on 4L NC -Serology is still pending -Respiratory panel negative -MRSA PCR not detected, discontinued vancomycin -continue levofloxacin Day 2 to cover atypical respiratory bacteria -He has not been vaccinated for COVID -Blood culture shows no growth after 24 hours #Diastolic congestive heart failure -Ordered repeat echo to assess for valvular disease. Last echo 01/2020: showed EF 60-65% with dilated hypokinetic right ventricle and aortic sclerosis. -BNP 1359, ordered repeat for AM -On physical exam there is no appreciable JVD and only trace lower extremity edema -I/O's net negative 1740 over last 24 hours -continue 2 gram sodium diet -continue daily weighs -Patient has Cardiology appt with Dr. Connors scheduled for 05/03/21 -He states that he does not add salt to his food at home and drinks less than 64 fluid oz per day. #Coronary artery disease -Unable to find records of stress test in past. Patient states he had either a nuclear stress test or pharmacologic stress test 10[facility] ago [facility]. -He denies chest pain at this time. -Continue simvastatin #Atrial fibrillation -rate controlled on metoprolol. Heart rate 79 -continue xarelto #Idiopathic pulmonary hemosiderosis -diagnosed 20+ years ago by the [facility] -continue ferrous gluconate -Patient chronically on 20mg of prednisone. Patient should be tapered down to 10-15mg if he has not had an alveolar hemorrhage recently. After 18-24 months without hemorrhage patient should be tapered off of prednisone. #COPD -s/p wedge resection -patient is a former smoker -He follows pulmonology at the [facility] in [place] -He spoke to Dr. Helms during his last admission and plans on scheduling an appointment at the [facility]. -He is not taking any outpatient medications. He will not use albuterol inhaler because it "give him palpitations". -Started patient on spiriva, he is hesitant to use but has been compliant today. #CKD Stage 3 -Likely secondary to hypertension -BUN 30 baseline approx 40 -Creatinine 1.37 which is below baseline #HTN -stable 109/67 -continue metoprolol #T2DM -BG 221 this evening -Patient refuses to take full dose of insulin but is open to taking half dose because "his sugars drop too low" -Put in 1 time order for half dose and will re-evaluate in the AM -Patient takes glipizide as an outpatient. -Patient would benefit from being started on a GLP-1 for additional cardiovascular protection #DVT prophylaxis: yes, continue xarelto DISPOSITION: Waiting for results of echocardiogram. Will continue to monitor patient for clinical improvement. He is diuresing well and breathing comfortably on 3LNC. Patient should follow up with the [facility] for management of COPD and Idiopathic pulmonary hemosiderosis. He is on a high dose of prednisone and likely should be weaned off. GME ATTESTATION My faculty preceptor for this patient encounter was physically present during the encounter and was fully available. All aspects of the patient interview, examination, medical decision making process, and medical care plan development were reviewed and approved by the faculty preceptor. The faculty preceptor is aware and concurs with the plan as stated in the body of this note and will attest to such by his/her cosignature. VS, I&O, 24H, Fishbone Vital Signs/I&O Vital Signs Date Time Temp Pulse Resp B/P (MAP) Pulse Ox O2 Delivery O2 Flow Rate FiO2 7/12/21 12:00 98.2 80 16 128/79 (95) 31 High Flow Cannula 3.0 I&O- Last 24 Hours up to 6 AM 04/10/21 06:00 Intake Total 590 ml Output Total 1875 ml Balance -1285 ml Laboratory Data 24H LABS Laboratory Tests 2 04/09/21 17:20: POC Troponin I (Misc) 0.00 04/09/21 21:50: Bedside Glucose (Misc Panel) 219H 04/09/21 22:54: Lactic Acid Followup at 4 Hours 2.0 04/10/21 00:45: Blood Gas Bicarbonate Standard 24.9, Arterial Blood pH 7.481H, Arterial Blood Partial Pressure CO2 32.1L, Arterial Blood Partial Pressure O2 66.1L, Arterial Blood Total CO2 24.4, Arterial Blood HCO3 23.4, Arterial Blood Base Excess 0.6, Arterial Blood Oxygen Saturation 94.2L 04/10/21 01:20: Urine Osmolality 356, Urine Random Creatinine < 13.0, Urine Random Sodium 113, Urine Random Potassium 34.4 04/10/21 02:19: Methicillin-Resist S.aureus DNA PCR NOT DETECTED 04/10/21 02:56: Urine Color STRAW, Urine Appearance CLEAR, Urine pH 5.0, Urine Specific [place] 1.010, Urine Protein NEGATIVE, Urine Glucose (Auto)(UA) NEGATIVE, Urine Ketones (Auto) NEGATIVE, Urine Blood NEGATIVE, Urine Nitrite NEGATIVE, Urine Bilirubin NEGATIVE, Urine Urobilinogen 0.2, Urine Leukocyte Esterase (Auto) NEGATIVE, Urine WBC (Auto) 1, Urine RBC (Auto) 0, Urine Hyaline Casts (Auto) 0, Urine Bacteria (Auto) NEGATIVE, Urine Squamous Epithelial Cells 0, Urine Sperm (Auto) 04/10/21 05:31: Nucleated Red Blood Cells % (auto) 0.0, Anion Gap 9, Glomerular Filtration Rate 54.5, Calcium Level 8.5L, Magnesium Level 2.2 04/10/21 12:16: Bedside Glucose (Misc Panel) 217H CBC/BMP Laboratory Tests 04/10/21 05:31 Microbiology Microbiology 04/09/21 Respiratory Virus Panel (PCR) (JULIEN) - Final, Complete 04/09/21 Blood Culture, Received Pending 04/09/21 Blood Culture, Received Pending MINDI WEBER 12, 2021 18:33
[2021-04-10 20:00] VITALS: BP 116/58
--- NOTE | 2021-04-10 20:44 | ECHO ---
ECHOCARDIOGRAM DATE OF PROCEDURE: 04/10/2021 Age: 70 Gender: Female Height: 175 cm Weight: 106 kg REFERRING PHYSICIAN: Blanca Kimball M.D., Nathalie Penn D.O. INDICATION: Congestive heart failure MEASUREMENTS: IVS 1.0 cm LV 4.8 cm LVPW 1.1 cm LA 4.4 cm Aorta 3.8 cm Left atrium volume index 38 mL/m2 FINDINGS: This study is of fair technical quality. Patient is in atrial fibrillation with controlled rate. Left ventricle is normal size. Overall preserved left ventricle systolic function based on prior views, estimated EF around 60%. Right ventricle also appears grossly normal size and systolic function. Both atria are enlarged. Aortic valve is likely tricuspid. It was poorly visualized, but there are significant calcifications and some restriction of its mobility. Mitral and tricuspid valves appear normal. Pulmonic valve was not well visualized. No pericardial effusion is noted. Inferior vena cava is of normal size and appropriately collapses with inspiration indicative of normal central venous pressure. Aortic root and aortic arch appear normal. Limited views of abdominal aorta also appear normal. Doppler interrogation reveals no significant aortic insufficiency, only minimal stenosis with mean gradient of only 5 mmHg. There is trace mitral insufficiency and no significant tricuspid insufficiency. Evaluation of diastolic function is inconclusive due to underlying atrial fibrillation. CONCLUSIONS: 1. Study is of fair technical quality corresponding to patient's body habitus. Underlying atrial fibrillation with controlled rate. 2. Normal LV size with preserved LV systolic function. 3. Very prominent aortic sclerosis, but only minimal stenosis. 4. No additional significant valvular disease. 5. Normal central venous pressure. 6. Unable to estimate pulmonary artery pressure, but no signs to suggest pulmonary hypertension. 7. Biatrial enlargement. MTDD
[2021-04-10] MEDS ORDERED: LevoFLOXacin IV 750 MG in IV 1 EA IV SCH (21:00)
[2021-04-10] MEDS: SIMVASTATIN 40 MG TAB PO SCH (21:04)
[2021-04-10] MEDS: RIVAROXABAN 15 MG TAB (XARELTO) PO SCH (21:04)
[2021-04-10] MEDS: SLF 3 ML SYR IV SCH (21:05)
--- NOTE | 2021-04-10 21:18 | ECGEPIP ---
[facility] - ED Test Date: 2021-04-09 Pat Name: CHETAN DONAHUE Department: Room: - Gender: Male Tan Room Supervisor: JESSENIA : 1950 Requested By: Laine Noe Order Number: [id number] Reading MD: Laine Noe Measurements Intervals [place] Rate: 82 P: WI: QRS: -38 QRSD: 76 T: -12 QT: 354 QTc: 413 Interpretive Statements Atrial fibrillation with a competing junctional pacemaker Left axis deviation Low voltage QRS Inferior infarct , age undetermined similar 02/28/21 Electronically Signed on 04-10-2021 21:17:56 EDT by Laine Noe
[2021-04-11] VITALS: BP 96/58
[2021-04-11 04:00] VITALS: BP 101/66
[2021-04-11 05:28] LABS: HEMATOCRIT 39.8 % (42.0-52.0); HEMOGLOBIN 12.2 g/dl (13.5-17.5); MEAN CORPUSCULAR HGB CONC 30.7 g/dl (32.0-36.5); MEAN CORPUSCULAR VOLUME 81.6 fl (80.0-96.0); PLATELET COUNT, AUTOMATED 179 10^3/uL (150-450); RED BLOOD COUNT 4.88 10^6/uL (4.30-6.10); WHITE BLOOD COUNT 9.8 10^3/uL (4.0-10.0)
[2021-04-11] MEDS: SLF 3 ML SYR IV SCH (05:47)
[2021-04-11 05:58] LABS: CALCIUM LEVEL 9.4 MG/DL (8.8-10.2); CREATININE FOR GFR 1.65 MG/DL (0.70-1.30); MAGNESIUM LEVEL 2.2 MG/DL (1.8-2.4); POTASSIUM SERUM 3.7 MEQ/L (3.5-5.1)
[2021-04-11] MEDS: HumaLOG INSULIN (NovoLOG) PER UNIT SC SCH ×2 (07:30→12:00)
[2021-04-11 08:00] VITALS: BP 122/88
[2021-04-11] MEDS: TAMSULOSIN 0.4 MG CAP PO SCH (08:46)
[2021-04-11] MEDS: FINASTERIDE 5 MG TAB PO SCH (08:46)
[2021-04-11] MEDS: POTASSIUM CHLORIDE 10 MEQ SR TABLET PO SCH (08:46)
[2021-04-11] MEDS: SERTRALINE 100 MG TAB PO SCH (08:46)
[2021-04-11] MEDS: PANTOPRAZOLE 20 MG TAB PO SCH (08:46)
[2021-04-11] MEDS: predniSONE 20 MG TAB PO SCH (08:46)
[2021-04-11] MEDS: DOCUSATE SODIUM 100MG CAPSULE PO SCH (08:46)
[2021-04-11 08:47] VITALS: BP 101/66
[2021-04-11] MEDS: FUROSEMIDE 40MG/4ML VIAL (J1940) IV SCH (08:47)
[2021-04-11] MEDS: FERROUS GLUCONATE 324 MG TAB PO SCH (08:47)
[2021-04-11] MEDS: METOPROLOL TART 12.5 MG PER 1/2 TAB PO SCH (08:47)
[2021-04-11] MEDS: buPROPion (WELLBUTRIN SR) 100 MG SR TAB PO SCH (08:47)
[2021-04-11] MEDS: TIOTROPIUM INHALER/CAPSULE (SPIRIVA) INH SCH (09:26)
[2021-04-11] MEDS ORDERED: PRED5TA PO (12:00)
[2021-04-11] MEDS ORDERED: TORS20TA2 PO (12:00)
[2021-04-11] MEDS ORDERED: SPIR1CAP INH (12:02)
--- NOTE | 2021-04-11 13:34 | DS.PDOC ---
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 HISTORY OF PRESENT ILLNESS: Mr. Quintero is a pleasant 70 year old male with past medical history of idiopathic pulmonary hemosiderosis, COPD s/p wedge resection, diastolic congestive heart failure, coronary artery disease, hyperlipidemia, obstuctive sleep apnea, CKD stage 3, and type 2 diabetes mellitus who presented to the ED for increasingly worsening shortness of breath of three days duration. He was discharged on 3 Liters of oxygen following his last hospitalization in January 2021. He noticed that he felt short of breath on 04/07/21 during exertional activities on 3L of oxygen. H decided to increase his oxygen to 5L Nasal Cannula and noticed this helped decrease his shortness of breath temporarily. On 04/09/21 he started experiencing shortness of breath on 5L oxygen while at rest. He states that his daughter is a nurse's aid and has a pulse ox at home that he wears occasionally. He noticed that his oxygen saturation dropped into the 70's on 04/09/21 with ambulation. This worried him and he presented to the emergency department. In addition to the shortness of breath, he has also noticed worseni ng swelling in his ankles. He states that about a week ago he coughed up a 1cm in diameter ball of mucous with blood mixed into it. He has a history of idiopathic pulmonary hemosiderosis and states he rarely coughs up bloody sputum. He denies any other recent episode of hemoptysis. He lives at home with his daughter, son-in-law, and ex-. HOSPITAL COURSE: The acute hypoxic respiratory failure was found to be multifactorial in etiology 2/2 to diastolic congestive heart failure, COPD, and unlikely pneumonia. He was started on vancomycin and levofloxacin for suspected pneumonia and discontinued on vancomycin after he tested negative for MRSA. His white blood cell count progressively decreased during the duration of his hospitalization. The patient was continued on prednisone 20mg q day to help decrease exacerbation of lung tissue secondary to underlying lung disease. He was discharged on a prednisone taper and advised to follow up with pulmonology to determine what the best treatment choice of Idiopathic pulmonary hemosiderosis is at this time. His respiratory pane and blood culture were negative. He diuresed a total of 3295ml during the course of his hospitalization and appeared clinically improved by hospital day 2 after being diuresed on lasix. A repeat BNP on Day 3 showed marked decrease from Day 1. He was discharged with instructions to start taking 20mg of torsemide on 04/13/21 in order to continuing diuresing fluid at home. He was on a 2gram sodium diet with strict I/0's and daily weighs and was advised to continue this at home. He was discharge back at his baseline of 3L oxygen with an oxygen saturation of 93%. Patient was also discharged on daily spiriva inhaler for COPD. Patient's PCP and decorator store are at the [facility] in [place], he is interested in seeing a ulmonologist in [place] and has spoken to Dr. Helms in the past. We advised him to make follow up appt with Pulmonology within 1 week. DISCHARGE MEDICATIONS: Please see below. ALLERGIES: Please see below. PHYSICAL EXAMINATION ON DISCHARGE: VITAL SIGNS: Please see below. GENERAL: Well nourished male sitting comfortably in his hospital bed finishing his breakfast HEENT: Mucous membranes are moist and pink, trachea midline, normocephalic, atraumatic NECK: No JVD appreciated, no lyphadenopathy noted CARDIOVASCULAR EXAMINATION: Distant heart sounds, irregularly irregular rhythm, unable to appreciate any gallops or rubs RESPIRATORY EXAMINATION: clear to auscultation bilaterally with the exception of velcro crackles on the right, equal inspiration bilaterally ABDOMINAL EXAMINATION: Distended, soft and non tender to deep palpation in all four quadrants. EXTREMITIES: no edema appreciated on bilateral lower extremities, ecchymosis present on anterior portion of right lower extremity distal to knee PSYCHIATRIC EXAMINATION: normal affect, alert and oriented x 3. LABORATORY DATA: Please see below. IMAGING: Chest x-ray 04/09/21 Impression: Chronic COPD/emphysematous changes with sup erimposed bilateral airspace disease. Angiography CT 04/09/21 Impression: Bilateral ground-glass semi-solid and solid pulmonary parenchymal opacities which have progressed in comparison to previously demonstrated bilateral ground-glass opacities. Findings consistent with multifocal organizing pneumo nitis. There is fusiform dilatation of the ascending thoracic aorta which measures 3.8 cm. maximally. There is no dissection or saccular component. There are no pulmonary emboli. Findings consistent with remote intrathoracic granulomatous infection. PROGNOSIS: Fair ACTIVITY: As tolerated DIET: 2 gram sodium diet DISCHARGE PLAN: discharge to home DISPOSITION: Patient able to take care of self. He is being discharged home where he lives with his daughter. DISCHARGE INSTRUCTIONS: 1. Follow up with your PCP within 1 week 2. Follow up with decorator store within 1 week 3. Torsemide was increased from 10mg to 20mg 4. Do not take furosemide 5. Finish prednisone taper and follow up with pulmonologyy 6. Started spiriva inhaler, continue to use daily ITEMS TO FOLLOWUP ON ON OUTPATIENT: -Diabetes medications: patient would strongly benefit from being started on a GLP-1. GLP-1 medications have proven kidney and heart benefits. -Chronic use of prednisone DISCHARGE CONDITION: Stable TIME SPENT ON DISCHARGE: Greater than 25 minutes. Vital Signs/I&Os Vital Signs Date Time Temp Pulse Resp B/P (MAP) Pulse Ox O2 Delivery O2 Flow Rate FiO2 04/11/21 12:00 High Flow Cannula 3.0 04/11/21 08:47 83 101/66 04/11/21 08:00 96.9 18 92 I&O- Last 24 Hours up to 6 AM 04/11/21 06:00 Intake Total 1640 ml Output Total 3800 ml Balance -2160 ml Laboratory Data Labs 24H Laboratory Tests 2 04/10/21 17:05: Bedside Glucose (Misc Panel) 221H 04/10/21 21:01: Bedside Glucose (Misc Panel) 228H 04/11/21 05:15: Nucleated Red Blood Cells % (auto) 0.0, Anion Gap 8, Glomerular Filtration Rate 44.0, Calcium Level 9.4, Magnesium Level 2.2, ZJ-[id number]-Type Natriuretic Peptide 574H CBC/BMP Laboratory Tests 04/11/21 05:15 FSBS Laboratory Tests Test 04/10/21 17:05 04/10/21 21:01 Range/Units Bedside Glucose (Misc Panel) 221 228 83-110 MG/DL Microbiology Microbiology 04/09/21 Respiratory Virus Panel (PCR) (JULIEN) - Final, Complete 04/09/21 Blood Culture - Preliminary, Resulted No growth after 24 hours . All specim... 04/09/21 Blood Culture - Preliminary, Resulted No growth after 24 hours . All specim... Discharge Medications Scheduled Ascorbic Acid (Vitamin C) 250 Mg Tablet, 250 MG PO DAILY, (Reported) Bupropion HCl (Bupropion HCl Sr) 100 Mg Tab.sr.12h, 100 MG PO DAILY, (Reported) Cholecalciferol (Vitamin D3) (Vitamin D3) 25 Mcg Tablet, 25 MCG PO DAILY, (Reported) Docusate Sodium (Docusate Sodium) 100 Mg Cap, 200 MG PO BID, (Reported) Ferrous Gluconate (Ferrous Gluconate) 324 Mg Tab, 648 MG PO BID, (Reported) Finasteride (Finasteride) 5 Mg Tab, 5 MG PO DAILY, (Reported) Glipizide (Glipizide) 5 Mg Tab, 2.5 MG PO DAILY, (Reported) TAKES BEFORE BREAKFAST Melatonin (Melatonin) 5 Mg Tablet, 5 MG PO QHS, (Reported) Metoprolol Tartrate (Metoprolol Tartrate) 25 Mg Tab, 12.5 MG PO BID, (Reported) Pantoprazole Sodium (Pantoprazole Sodium) 20 Mg Tablet.dr, 20 MG PO DAILY, (Reported) Potassium Chloride (Potassium Chloride) 10 Meq Tab.er.prt, 30 MEQ PO DAILY, (Reported) Prednisone (Prednisone) 5 Mg Tablet, 5 MG PO ASDIRECTED Take 4 tabs daily x 5 days, then take 3 tabs daily x 5 days, then take 2 tabs daily x 5 days, then 1 tab daily x 5 days and stop Please betina this in your calendar and take only as instructed. Rivaroxaban (Xarelto) 15 Mg Tablet, 15 MG PO QHS, (Reported) Sertraline Hcl (Zoloft) 100 Mg Tablet, 200 MG PO DAILY, (Reported) Simvastatin (Zocor) 80 Mg Tablet, 40 MG PO QHS, (Reported) Tamsulosin HCl (Flomax) 0.4 Mg Capsule, 0.4 MG PO DAILY, (Reported) Tiotropium [place] (Spiriva) 18 Mcg Cap.w.dev, 1 INHALATION INH DAILY Take 1 puff by mouth daily Torsemide (Torsemide) 20 Mg Tablet, 20 MG PO DAILY Start taking on 7/15/21 (). Take 20mg by mouth once per day. Do not take today and tomorrow 04/11/21-04/12/21 Scheduled PRN Cetirizine HCl (Cetirizine HCl) 10 Mg Tablet, 10 MG PO DAILY PRN for ALLERGIES, (Reported) Clotrimazole (Clotrimazole) 1% 30GM Cream..g., 1 DOSE TOP BID PRN for RASH, (Reported) APPLIES TO GROIN AND LEGS NEEDED FOR YEAST INFECTION Simethicone (Simethicone) 80 Mg Tab.chew, 160 MG PO ACHS PRN for GAS PAIN, (Reported) Allergies Coded Allergies: amlodipine (Verified Allergy, Unknown, 04/27/19) atenolol (Verified Allergy, Unknown, 04/27/19) albuterol (Verified Adverse Reaction, Mild, increased HR, 04/01/20) MINDI WEBER DO Apr 11, 2021 13:34
[2021-04-12 13:15] LABS: CHLAMYDIA PNEUMONIAE IgM <1:10 (Neg:<1:10); MYCOPLASMA PNEUMONIAE IgG 412 U/mL (0-99); MYCOPLASMA PNEUMONIAE IgM <770 U/mL (0-769)
[2021-04-12 14:16] LABS: BODY FLUID CULTURE Not indicated. (.); LEGIONELLA ANTIGEN URINE Negative (Negative); ORGANISM ID Not indicated. (.); SPECIMEN SOURCE Urine (.); URINE STREP PNEUMONIAE ANTIGEN Negative (Negative)
== END 2021-04-11 14:44 | disposition home or self-care (01) | DRG 291 ==
LOC: M ED 15:41 → EDBD 15:41 → M ED INP 19:00 → M PCU 23:05
PROVIDERS: ADMIT Internal Medicine; ATTEND Internal Medicine
DX: I13.0 Hypertensive heart and chronic kidney disease with heart failure and stage 1 through stage 4 chronic kidney disease, or unspecified chronic kidney disease (principal); J96.91 Respiratory failure, unspecified with hypoxia; I50.33 Acute on chronic diastolic (congestive) heart failure; R04.2 Hemoptysis; N17.9 Acute kidney failure, unspecified; J84.03 Idiopathic pulmonary hemosiderosis; N18.30 Chronic kidney disease, stage 3 unspecified; I48.91 Unspecified atrial fibrillation; I25.10 Atherosclerotic heart disease of native coronary artery without angina pectoris; J44.9 Chronic obstructive pulmonary disease, unspecified; E11.9 Type 2 diabetes mellitus without complications; E83.118 Other hemochromatosis; E78.5 Hyperlipidemia, unspecified; G47.33 Obstructive sleep apnea (adult) (pediatric); Z79.899 Other long term (current) drug therapy; Z88.8 Allergy status to other drugs, medicaments and biological substances; Z98.42 Cataract extraction status, left eye; Z87.891 Personal history of nicotine dependence; N40.0 Benign prostatic hyperplasia without lower urinary tract symptoms; F32.9 Major depressive disorder, single episode, unspecified

== ENCOUNTER 2021-04-26 07:08 | Observation (INO) | payer OTHER ==
[~2021-04-26] VITALS: Ht 175.3 cm; Wt 108.8 kg
[~2021-04-26 07:08] MED LIST changes: +BUPR1TAB52 PO; +PANT20TA51 PO; +PRED5TA PO; +SPIR1CAP INH; +TORS20TA2 PO; -VANCOMYCIN HCL 1,000 MG, VIAL MATE ADAPTER 1 EACH in NS 250 ML IV ONE
[2021-04-26 08:19] LABS: VENOUS BASE EXCESS -0.8 (-2.0-2.0); VENOUS HCO3 24.8 MEQ/L (23.0-27.0); VENOUS O2 SATURATION 60.5 % (60.0-80.0); VENOUS PARTIAL PRESSURE CO2 45.1 mmHg (38.0-50.0); VENOUS PH 7.359 UNITS (7.330-7.430); VENOUS TOTAL CO2 26.2 MEQ/L (24.0-28.0)
[2021-04-26 08:23] LABS: BASO % 0.1 % (0.0-1.0); EOS # 0.1 10^3/uL (0.0-0.5); EOS % 0.7 % (0.0-3.0); HEMOGLOBIN 12.2 g/dl (13.5-17.5); LYMPH # 0.6 10^3/uL (1.5-5.0); LYMPH % 3.9 % (24.0-44.0); MEAN CORPUSCULAR HEMOGLOBIN 25.4 pg (27.0-33.0); MEAN CORPUSCULAR HGB CONC 30.5 g/dl (32.0-36.5); MEAN CORPUSCULAR VOLUME 83.2 fl (80.0-96.0); MONO # 0.6 10^3/uL (0.0-0.8); MONO % 4.1 % (2.0-8.0); NEUTROPHILS # 13.5 10^3/uL (1.5-8.5); PLATELET COUNT, AUTOMATED 175 10^3/uL (150-450); RED BLOOD COUNT 4.81 10^6/uL (4.30-6.10)
--- NOTE | 2021-04-26 08:31 | REP ---
INDICATION: DYSPNEA/COUGH. COMPARISON: Comparison chest x-ray April 09, 2021 comparison study from February 26, 2021 is also reviewed.. TECHNIQUE: Portable upright AP chest radiograph. FINDINGS: There is extensive chronic interstitial lung disease with infiltrates in the left inferior perihilar region, right upper lobe, and right base region unchanged from prior studies including February 26, 2021. This pattern would make it difficult to observe a new parenchymal opacification. No new infiltrate is appreciated. EKG monitoring electrodes and oxygen delivery tubing are seen. Heart is mildly enlarged. Unchanged.. IMPRESSION: Extensive bilateral interstitial infiltrates which are apparently chronic. No new infiltrate is appreciated.. <Electronically signed by Neto Alvarez > 04/26/21 2035
[2021-04-26 08:42] LABS: RSV AMPLIFICATION NEGATIVE (NEGATIVE)
[2021-04-26 08:59] LABS: ALBUMIN 2.9 GM/DL (3.2-5.2); ALT/SGPT 16 U/L (12-78); BILIRUBIN,DIRECT 0.2 MG/DL (0.0-0.2); BILIRUBIN,TOTAL 0.5 MG/DL (0.2-1.0); BLOOD UREA NITROGEN 25 MG/DL (7-18); CALCIUM LEVEL 8.6 MG/DL (8.8-10.2); CARBON DIOXIDE LEVEL 27 MEQ/L (21-32); CHLORIDE LEVEL 112 MEQ/L (98-107); CK-MB VALUE MASS 1.1 NG/ML (<3.6); CPK CREATINE PHOSPHOKINASE 23 U/L (39-308); CREATININE FOR GFR 1.36 MG/DL (0.70-1.30); GLUCOSE, FASTING 130 MG/DL (70-100); MB/CK RELATIVE INDEX 4.78 (< OR =4); NT-PRO BNP 1302 PG/ML (<125); POTASSIUM SERUM 3.7 MEQ/L (3.5-5.1); SODIUM LEVEL 146 MEQ/L (136-145); THYROXINE (T4) 8.4 UG/DL (4.5-12.0); TOTAL PROTEIN 5.6 GM/DL (6.4-8.2); TROPONIN I < 0.02 NG/ML (< 0.10)
[2021-04-26] MEDS ORDERED: SERTRALINE 100 MG TAB PO ONE (09:05)
[2021-04-26] MEDS ORDERED: predniSONE 5 MG TAB PO ONE (09:05)
[2021-04-26] MEDS ORDERED: TAMSULOSIN 0.4 MG CAP PO ONE (09:05)
[2021-04-26] MEDS ORDERED: ASCORBIC ACID 250 MG TAB PO ONE (09:05)
[2021-04-26] MEDS ORDERED: buPROPion (WELLBUTRIN SR) 100 MG SR TAB PO ONE (09:05)
[2021-04-26] MEDS ORDERED: PANTOPRAZOLE 20 MG TAB PO ONE (09:05)
[2021-04-26] MEDS ORDERED: TORSEMIDE 20 MG TAB PO ONE (09:05)
[2021-04-26] MEDS ORDERED: glipiZIDE *2.5MG* 1/2 TABLET PO ONE (09:05)
[2021-04-26] MEDS ORDERED: FERROUS GLUCONATE 324 MG TAB PO ONE (09:05)
[2021-04-26] MEDS ORDERED: POTASSIUM CHLORIDE 10 MEQ SR TABLET PO ONE (09:05)
[2021-04-26] MEDS ORDERED: FINASTERIDE 5 MG TAB PO ONE (09:05)
[2021-04-26] MEDS: METOPROLOL TART 25 MG TABLET PO ONE ×2 (10:15→10:17)
--- NOTE | 2021-04-26 10:21 | REP ---
INDICATION: SOB, infiltrates. COMPARISON: Comparison chest CT study April 09, 2021.. TECHNIQUE: Helical scanning is acquired. 3 mm axial images are generated. Coronal and sagittal MPR and coronal MIP images are generated. FINDINGS: Extensive bilateral parenchymal ground-glass opacity and interstitial fibrosis changes are seen throughout the lung archuleta bilaterally. There is a bandlike area of peripheral opacity in the right upper lobe which is more focal. There are multifocal smaller opacities. These are all unchanged from March 2021. There is no evidence of of pericardial effusion. There is a very small quantity of pleural fluid bilaterally which does appear to be a new finding from the prior study of April 09, 2021. Cardiomegaly is observed. Vascular calcification is seen including coronary artery calcification. The visualized upper abdominal structures are unremarkable. There is bilateral gynecomastia. No new adenopathy or mass lesion. IMPRESSION: Diffuse interstitial and and ground-glass opacity pattern in the lung archuleta unchanged from April 09, 2021. There is a sliver of pleural fluid bilaterally which appears to be a new finding. Otherwise unchanged. <Electronically signed by Neto Alvarez > 04/26/21 [id number]
[2021-04-26] MEDS ORDERED: FUROSEMIDE 40MG/4ML VIAL (J1940) IV ONE (11:05)
[2021-04-26 13:00] VITALS: O2SAT 87
[2021-04-26] MEDS ORDERED: SPIR1AER INH (14:14)
[2021-04-26] MEDS ORDERED: TORS20TA2 PO (14:14)
[2021-04-26] MEDS ORDERED: PRED5TA PO (14:14)
[2021-04-26] MEDS ORDERED: GLUCAGON INJ 1MG VIAL SC PRN (14:20)
[2021-04-26] MEDS ORDERED: GLUCOSE 4GM CHEW TABLET PO PRN (14:20)
[2021-04-26] MEDS ORDERED: SIMETHICONE 80MG CHEW TAB PO PRN (14:20)
[2021-04-26] MEDS ORDERED: ACETAMINOPHEN TAB 650MG DOSE (2X325MG) PO PRN (14:20)
[2021-04-26] MEDS ORDERED: CLOTRIMAZOLE 1% TOPICAL CREAM 30GM TOP PRN (14:20)
[2021-04-26] MEDS ORDERED: DEXTROSE 50% 50 ML SYRINGE IV PRN (14:20)
[2021-04-26] MEDS ORDERED: CETIRIZINE (ZyrTEC) 10 MG TAB PO PRN (14:20)
[2021-04-26] MEDS ORDERED: MOM 30ML SUSPENSION UDC PO PRN (14:20)
--- NOTE | 2021-04-26 15:47 | HPEPDOC ---
[facility] Medical History & Physical Date of Admission Apr 26, 2021 Date of Service: Apr 26, 2021 History and Physical Chief complaint: Who presented to the emergency room with lower tremors swelling History of present illness: Patient is a 70-year-old male who presented to [facility] with worsening lower extremity swelling and reported short of breath. Patient reports a cough t hat is chronic. No significant change. Denies any chest pain or palpitations. Patient does report that his lower extremities have had worsening swelling. Patient reports that at night she sleeps on his side but has not woken up because of shortness of breath. Patient denies any nausea, vomiting, abdominal pain or diarrhea reported. His last bowel movement was yesterday. Denies any urinary discomfort. Patient reports no fevers but did report some chills. Patient reports that he takes prednisone as an outpatient because he is completing a recent taper. Patient also reports that he takes diuretics as an outpatient. Of note, patient was recently in the hospital from April 09 to April 11 for soriano spected COPD exacerbation. Past Medical History: Idiopathic pulmonary hemosiderosis Chronic hypoxic respiratory failure (Uses 3L NC at baseline) COPD s/p wedge resection CHF A fib (on Xarelto) CAD HTN DLP DM2 LAKESHIA on CPAP CKD3 BPH Past Surgical History: Left cataract removal with lens implant Left retinal repair Pulmonary wedge resection Pulmonary biopsy Bronchoscopy x2 Allergies: See below Medications: See below Family History: - Father with a history of coronary artery disease. 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 Review of Systems: 10 point review of systems complete, all negative otherwise stated in HPI Physical exam: - Vitals: BP [114/58], HR [90], RR [20], Sat [94%NC3L], Temp [98.4F] - General: Lying in bed, No acute distress, Speaking in full sentences, AAOx3 - HEENT: NC, AT, PERRLA - CVS: IrIr, +S1S2 - Lungs: Fair air entry bilaterally, No appreciable wheezing / rales / rhonchi - Abdomen: Soft, Non-distended, Non-tender - Extremities: 1+ pitting edema bilaterally, No calf tenderness - Neuro: No focal motor or sensory deficit - Skin: No visible rashes Labs: See below Imaging: CXR 04/26: Extensive bilateral interstitial infiltrates which are apparently chronic. No new infiltrate is appreciated. CT Chest 04/26: Diffuse interstitial and and ground-glass opacity pattern in the lung archuleta unchanged from April 09, 2021. There is a sliver of pleural fluid bilaterally which appears to be a new finding. Otherwise unchanged. EKG: See below Assessment and Plan: Shortness of breath / LE edema - likely 2/2 exacerbation of diastolic CHF - Patient presented to the emergency room with chest breath and LE edema - Patient is saturating well on his baseline level of oxygen of 3 L nasal cannula - Physical does not reveal any significant crackles of his lung archuleta, however there is 1+ pitting edema bilaterally - BNP elevated - Imaging noted above - ECHO recently completed was unable to evaluate diastolic function. Because of atrial fibrillation - Will check troponin trend - EKG reviewed - Strict ins/outs, daily weights, head of bed elevation - Will start Furosemide 40 IV [id number] Leukocytosis - Review systems is negative for any source of infection - Will check blood cultures, sputum cultures, pro-calcitonin - Will hold off on antibiotics at this time Hypernatremia - Will continue with diuresis Lactic acidosis - likely 2/2 work of breathing - c/w Diuresis Idiopathic pulmonary hemosiderosis Chronic hypoxic respiratory failure - Patient uses 3L NC at baseline Chronic COPD s/p wedge resection - No evidence of exacerbation currently - Patient has been completing a course of prednisone as an outpatient; will continue with existing dose - Continue with inhaled therapy as ordered Chronic A fib - c/w rate control with metoprolol - c/w full anticoagulation with Xarelto CAD - Patient has never had stenting or coronary artery bypass - c/w ASA HTN - BP well controlled - c/w Metoprolol DLP - c/w Simvastatin NIDDM2 - Will start ISS LAKESHIA on CPAP - Will allow home CPAP use Depression - c/w Sertraline and Bupropion CKD3 - Cr baseline of 1.3-1.6 - Cr currently at baseline BPH - c/w Tamsulosin and Finasteride GERD - c/w Protonix DVT prophylaxis - Will c/w full anticoagulation with Xarelto Vital Signs Vital Signs Date Time Temp Pulse Resp B/P (MAP) Pulse Ox O2 Delivery O2 Flow Rate FiO2 7/28/21 14:43 98.4 114/55 (74) 94 Nasal Cannula 3.0 04/26/21 14:30 90 04/26/21 11:38 20 Laboratory Data Labs 24H Laboratory Tests 2 04/26/21 07:49: Coronavirus (COVID-19)(PCR) NEGATIVE, Influenza Type A (RT-PCR) NEGATIVE, Influenza Type B (RT-PCR) NEGATIVE, Respiratory Syncytial Virus (PCR) NEGATIVE 04/26/21 08:10: Immature Granulocyte % (Auto) 1.2, Neutrophils (%) (Auto) 90.0H, Lymphocytes (%) (Auto) 3.9L, Monocytes (%) (Auto) 4.1, Eosinophils (%) (Auto) 0.7, Basophils (%) (Auto) 0.1, Neutrophils # (Auto) 13.5H, Lymphocytes # (Auto) 0.6L, Monocytes # (Auto) 0.6, Eosinophils # (Auto) 0.1, Basophils # (Auto) 0.0, Nucleated Red Blood Cells % (auto) 0.0, Blood Gas Bicarbonate Standard 23.0, Venous Blood pH 7.359, Venous Blood Partial Pressure CO2 45.1, Venous Blood Partial Pressure O2 32.0, Venous Blood Total Carbon Dioxide 26.2, Venous Blood HCO3 24.8, Venous Blood Oxygen Saturation 60.5, Venous Blood Base Excess -0.8, Anion Gap 7L, Glome rular Filtration Rate 55.0, Lactic Acid Level 3.1*H, Calcium Level 8.6L, Total Bilirubin 0.5, Direct Bilirubin 0.2, Aspartate Amino Transf (AST/SGOT) 14, Alanine Aminotransferase (ALT/SGPT) 16, Alkaline Phosphatase 66, Total Creatine Kinase 23L, Creatine Kinase MB 1.1, Creatine Kinase MB Relative Index 4.78H, Troponin I < 0.02, CA-Ild-Q-Type Natriuretic Peptide 1302H, Total Protein 5.6L, Albumin 2.9L, Albumin/Globulin Ratio 1.1, Thyroid Stimulating Hormone (TSH) 1.510, Thyroxine (T4) 8.4 04/26/21 15:04: CBC/BMP Laboratory Tests 04/26/21 08:10 Microbiology Microbiology 04/26/21 Blood Culture, Received Pending 04/26/21 Blood Culture, Received Pending Home Medications Scheduled Ascorbic Acid (Vitamin C) 250 Mg Tablet, 250 MG PO DAILY Bupropion HCl (Bupropion HCl Sr) 100 Mg Tab.sr.12h, 100 MG PO DAILY Cholecalciferol (Vitamin D3) (Vitamin D3) 25 Mcg Tablet, 25 MCG PO DAILY Docusate Sodium (Docusate Sodium) 100 Mg Cap, 200 MG PO BID Ferrous Gluconate (Ferrous Gluconate) 324 Mg Tab, 648 MG PO BID Finasteride (Finasteride) 5 Mg Tab, 5 MG PO DAILY Glipizide (Glipizide) 5 Mg Tab, 2.5 MG PO DAILY TAKES BEFORE BREAKFAST Melatonin (Melatonin) 5 Mg Tablet, 5 MG PO QHS Metoprolol Tartrate (Metoprolol Tartrate) 25 Mg Tab, 12.5 MG PO BID Pantoprazole Sodium (Pantoprazole Sodium) 20 Mg Tablet.dr, 20 MG PO BID Potassium Chloride (Potassium Chloride) 10 Meq Tab.er.prt, 30 MEQ PO DAILY Prednisone (Prednisone) 5 Mg Tablet, 5 MG PO DAILY TAPER DOSE, DUE TO BEING 5MG DOSE 04/26/21 Rivaroxaban (Xarelto) 15 Mg Tablet, 15 MG PO QHS Sertraline Hcl (Zoloft) 100 Mg Tablet, 200 MG PO DAILY Simvastatin (Zocor) 80 Mg Tablet, 40 MG PO QHS Tamsulosin HCl (Flomax) 0.4 Mg Capsule, 0.4 MG PO QHS Tiotropium [place] (Spiriva Respimat) 4 Gm Mist.inhal, 2 PUFFS INH DAILY Torsemide (Torsemide) 20 Mg Tablet, 20 MG PO DAILY Scheduled PRN Cetirizine HCl (Cetirizine HCl) 10 Mg Tablet, 10 MG PO DAILY PRN for ALLERGIES Clotrimazole (Clotrimazole) 1% 30GM Cream..g., 1 DOSE TOP BID PRN for RASH APPLIES TO GROIN AND LEGS NEEDED FOR YEAST INFECTION Simethicone (Simethicone) 80 Mg Tab.chew, 160 MG PO ACHS PRN for GAS PAIN Allergies Coded Allergies: amlodipine (Verified Allergy, Unknown, 04/27/19) atenolol (Verified Allergy, Unknown, 04/27/19) albuterol (Verified Adverse Reaction, Mild, increased HR, 04/01/20) MEENU WILHELM MD Apr 26, 2021 15:47
[2021-04-26 16:32] LABS: CK-MB VALUE MASS 1.4 NG/ML (<3.6); CPK CREATINE PHOSPHOKINASE 27 U/L (39-308); MB/CK RELATIVE INDEX 5.19 (< OR =4); TROPONIN I < 0.02 NG/ML (< 0.10)
[2021-04-26] MEDS ORDERED: RIVAROXABAN 15 MG TAB (XARELTO) PO SCH (18:00)
[2021-04-26] MEDS: HumaLOG INSULIN (NovoLOG) PER UNIT SC SCH (18:30)
[2021-04-26 19:00] VITALS: BP 93/57
[2021-04-26 20:00] VITALS: BP 107/57
[2021-04-26] MEDS: FUROSEMIDE 40MG/4ML VIAL (J1940) IV SCH (20:00)
[2021-04-26 20:21] VITALS: BP_DIAS 57
[2021-04-26] MEDS: METOPROLOL TART 12.5 MG PER 1/2 TAB PO SCH (20:21)
[2021-04-26] MEDS: FERROUS GLUCONATE 324 MG TAB PO SCH (20:52)
[2021-04-26] MEDS: PANTOPRAZOLE 20 MG TAB PO SCH (20:53)
[2021-04-26] MEDS: DOCUSATE SODIUM 100MG CAPSULE PO SCH (20:53)
[2021-04-26] MEDS ORDERED: SIMVASTATIN 40 MG TAB PO SCH (21:00)
[2021-04-26] MEDS ORDERED: HumaLOG INSULIN (NovoLOG) PER UNIT SC SCH (21:00)
[2021-04-26] MEDS ORDERED: TAMSULOSIN 0.4 MG CAP PO SCH (21:00)
[2021-04-26 22:13] LABS: CK-MB VALUE MASS < 1.0 NG/ML (<3.6); CPK CREATINE PHOSPHOKINASE 21 U/L (39-308); MB/CK RELATIVE INDEX 4.76 (< OR =4); TROPONIN I < 0.02 NG/ML (< 0.10)
[2021-04-27] VITALS: BP 111/53
[2021-04-27 04:00] VITALS: BP 100/57
[2021-04-27] MEDS: FUROSEMIDE 40MG/4ML VIAL (J1940) IV SCH (04:00)
[2021-04-27 05:34] LABS: BASO % 0.2 % (0.0-1.0); EOS # 0.1 10^3/uL (0.0-0.5); EOS % 1.4 % (0.0-3.0); HEMATOCRIT 34.9 % (42.0-52.0); HEMOGLOBIN 10.5 g/dl (13.5-17.5); LYMPH # 1.3 10^3/uL (1.5-5.0); LYMPH % 13.4 % (24.0-44.0); MEAN CORPUSCULAR HEMOGLOBIN 24.8 pg (27.0-33.0); MEAN CORPUSCULAR HGB CONC 30.1 g/dl (32.0-36.5); MEAN CORPUSCULAR VOLUME 82.5 fl (80.0-96.0); MONO # 0.7 10^3/uL (0.0-0.8); NEUTROPHILS # 7.2 10^3/uL (1.5-8.5); PLATELET COUNT, AUTOMATED 195 10^3/uL (150-450); RED BLOOD COUNT 4.23 10^6/uL (4.30-6.10); WHITE BLOOD COUNT 9.4 10^3/uL (4.0-10.0)
[2021-04-27 05:55] LABS: CALCIUM LEVEL 8.3 MG/DL (8.8-10.2); CREATININE FOR GFR 1.4 MG/DL (0.70-1.30); GLOMERULAR FILTRATION RATE 53.2 (>42); MAGNESIUM LEVEL 2.1 MG/DL (1.8-2.4); POTASSIUM SERUM 3.8 MEQ/L (3.5-5.1)
[2021-04-27] MEDS: HumaLOG INSULIN (NovoLOG) PER UNIT SC SCH ×2 (07:30→12:00)
--- NOTE | 2021-04-27 07:30 | ECGEPIP ---
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
[2021-04-27 08:00] VITALS: BP 111/67
[2021-04-27] MEDS ORDERED: TIOTROPIUM INHALER/CAPSULE (SPIRIVA) INH SCH (08:00)
[2021-04-27] MEDS: DOCUSATE SODIUM 100MG CAPSULE PO SCH (08:26)
[2021-04-27] MEDS: FERROUS GLUCONATE 324 MG TAB PO SCH (08:26)
[2021-04-27] MEDS: PANTOPRAZOLE 20 MG TAB PO SCH (08:26)
[2021-04-27] MEDS ORDERED: TORS20TA2 PO (08:27)
[2021-04-27 08:34] VITALS: BP_SYST 110
[2021-04-27] MEDS: METOPROLOL TART 12.5 MG PER 1/2 TAB PO SCH (08:34)
[2021-04-27] MEDS ORDERED: SERTRALINE 100 MG TAB PO SCH (09:00)
[2021-04-27] MEDS ORDERED: predniSONE 5 MG TAB PO SCH (09:00)
[2021-04-27] MEDS ORDERED: FINASTERIDE 5 MG TAB PO SCH (09:00)
[2021-04-27] MEDS ORDERED: buPROPion (WELLBUTRIN SR) 100 MG SR TAB PO SCH (09:00)
[2021-04-27] MEDS ORDERED: ASCORBIC ACID 250 MG TAB PO SCH (09:00)
[2021-04-27] MEDS ORDERED: VITAMIN D 1,000 INTERNATIONAL UNITS TABLET PO SCH (09:00)
[2021-04-27] MEDS ORDERED: TORSEMIDE 20 MG TAB PO SCH (09:00)
[2021-04-27] MEDS ORDERED: POTASSIUM CHLORIDE 10 MEQ SR TABLET PO SCH (09:00)
--- NOTE | 2021-04-27 11:35 | DS.PDOC ---
Discharge Summary General Date of Admission Apr 26, 2021 at 07:09 Date of Discharge 04/27/2021 Discharge Summary PROCEDURES PERFORMED DURING STAY: [None]. ADMITTING DIAGNOSES / DISCHARGE DIAGNOSES: Shortness of breath / LE edema - likely 2/2 exacerbation of diastolic CHF s/p Leukocytosis s/p Hypernatremia Lactic acidosis - likely 2/2 work of breathing Idiopathic pulmonary hemosiderosis Chronic hypoxic respiratory failure Chronic COPD s/p wedge resection Chronic A fib CAD HTN DLP NIDDM2 LAKESHIA on CPAP Depression CKD3 BPH GERD DVT prophylaxis COMPLICATIONS/CHIEF COMPLAINT: Short Of Breath. HISTORY OF PRESENT ILLNESS: Patient is a 70-year-old male who presented to [facility] with worsening lowe r extremity swelling and reported short of breath. Patient reports a cough that is chronic. No significant change. Denies any chest pain or palpitations. Patient does report that his lower extremities have had worsening swelling. Patient reports that at night she sleeps on his side but has not woken up because of shortness of breath. Patient reports that he takes prednisone as an outpatient because he is completing a recent taper. Patient also reports that he takes diuretics as an outpatient. Patient was admitted to hospital service for further evaluation and treatment. Patient was seen and examined at the bedside currently reports that his leg swelling has had improvement in breathing is essentially at baseline. Denies any nausea, vomiting, abdominal pain, diarrhea, or urinary discomfort. HOSPITAL COURSE: Shortness of breath / LE edema - likely 2/2 exacerbation of diastolic CHF - Patient presented to the ER with reported shortness of breath and LE edema / has been on baseline level of oxygen - Physicals without any crackles, of his lungs, improvement of lower extremity edema - BNP elevated - Imaging noted above - ECHO recently completed was unable to evaluate diastolic function because of atrial fibrillation - Troponin trend negative - EKG reviewed - Strict ins/outs, daily weights, head of bed elevation - Has had -1L with current diuresis - Will adjust home dose of Torsemide to BID dosing s/p Leukocytosis - Review systems is negative for any source of infection - Afebrile and hemodynamically stable - Will hold off on antibiotics at this time s/p Hypernatremia Lactic acidosis - likely 2/2 work of breathing - c/w Diuresis Idiopathic pulmonary hemosiderosis Chronic hypoxic respiratory failure - Patient uses 3L NC at baseline; currently on baseline level of oxygen Chronic COPD s/p wedge resection - No evidence of exacerbation currently - Patient has been completing a course of prednisone as an outpatient; will continue with existing dose - Continue with inhaled therapy as ordered Chronic A fib - c/w rate control with metoprolol - c/w full anticoagulation with Xarelto CAD - Patient has never had stenting or coronary artery bypass - c/w ASA HTN - BP well controlled - c/w Metoprolol DLP - c/w Simvastatin NIDDM2 - c/w ISS while inpatient LAKESHIA on CPAP - c/w Home CPAP use Depression - c/w Sertraline and Bupropion CKD3 - Cr baseline of 1.3-1.6 - Cr currently at baseline BPH - c/w Tamsulosin and Finasteride GERD - c/w Protonix DVT prophylaxis - c/w full anticoagulation with Xarelto DISCHARGE MEDICATIONS: Please see below. ALLERGIES: Please see below. PHYSICAL EXAMINATION ON DISCHARGE: Vitals (See below) General: Lying in bed, appears comfortable, AAOx3 HEENT: NC, AT CVS: +S1S2 Lungs: Fair air entry b/l, there is no wheezing, rales or rhonchi on auscultation Abdomen: Soft, ND, NT, Obese Extremities: Trace to 1+ pitting edema - improved compared to yesterday, - Calf tenderness LABORATORY DATA: Please see below. IMAGING: CXR 04/26: Extensive bilateral interstitial infiltrates which are apparently chronic. No new infiltrate is appreciated. CT Chest 04/26: Diffuse interstitial and and ground-glass opacity pattern in the lung archuleta unchanged from April 09, 2021. There is a sliver of pleural fluid bilaterally which appears to be a new finding. Otherwise unchanged. ACTIVITY: [As tolerated]. DISCHARGE PLAN: Follow-up with primary care provider, pulmonology and cardiology within the next 7 days Remain compliant with treatment plan and medications Return to the ER if you experience any problems DISPOSITION: Home with services DISCHARGE CONDITION: [Stable]. TIME SPENT ON DISCHARGE: 35 minutes. Vital Signs/I&Os Vital Signs Date Time Temp Pulse Resp B/P (MAP) Pulse Ox O2 Delivery O2 Flow Rate FiO2 04/27/21 08:00 3.0 04/27/21 04:00 97.5 71 17 100/57 (71) 97 NIPPV (BIPAP/CPAP) I&O- Last 24 Hours up to 6 AM 04/27/21 05:59 Intake Total 240 ml Output Total 1375 ml Balance -1135 ml Laboratory Data Labs 24H Laboratory Tests 2 04/26/21 15:04: Lactic Acid Followup at 4 Hours 4.3*H, Procalcitonin 1.30 04/26/21 15:41: Total Creatine Kinase 27L, Creatine Kinase MB 1.4, Creatine Kinase MB Relative Index 5.19H, Troponin I < 0.02 04/26/21 18:28: Bedside Glucose (Misc Panel) 209H 04/26/21 20:07: Bedside Glucose (Misc Panel) 156H 04/26/21 21:29: Total Creatine Kinase 21L, Creatine Kinase MB < 1.0, Creatine Kinase MB Relative Index 4.76H, Troponin I < 0.02 04/27/21 05:16: Immature Granulocyte % (Auto) 1.0, Neutrophils (%) (Auto) 77.0H, Lymphocytes (%) (Auto) 13.4L, Monocytes (%) (Auto) 7.0, Eosinophils (%) (Auto) 1.4, Basophils (%) (Auto) 0.2, Neutrophils # (Auto) 7.2, Lymphocytes # (Auto) 1.3L, Monocytes # (Auto) 0.7, Eosinophils # (Auto) 0.1, Basophils # (Auto) 0.0, Nucleated Red Blood Cells % (auto) 0.0, Anion Gap 3L, Glomerular Filtration Rate 53.2, Calcium Level 8.3L, Magnesium Level 2.1 CBC/BMP Laboratory Tests 04/27/21 05:16 FSBS Laboratory Tests Test 04/26/21 18:28 04/26/21 20:07 Range/Units Bedside Glucose (Misc Panel) 209 156 83-110 MG/DL Microbiology Microbiology 04/26/21 Blood Culture - Preliminary, Resulted No growth after 24 hours . All specim... 04/26/21 Blood Culture - Preliminary, Resulted No growth after 24 hours . All specim... Discharge Medications Scheduled Ascorbic Acid (Vitamin C) 250 Mg Tablet, 250 MG PO DAILY, (Reported) Bupropion HCl (Bupropion HCl Sr) 100 Mg Tab.sr.12h, 100 MG PO DAILY, (Reported) Cholecalciferol (Vitamin D3) (Vitamin D3) 25 Mcg Tablet, 25 MCG PO DAILY, (Reported) Docusate Sodium (Docusate Sodium) 100 Mg Cap, 200 MG PO BID, (Reported) Ferrous Gluconate (Ferrous Gluconate) 324 Mg Tab, 648 MG PO BID, (Reported) Finasteride (Finasteride) 5 Mg Tab, 5 MG PO DAILY, (Reported) Glipizide (Glipizide) 5 Mg Tab, 2.5 MG PO DAILY, (Reported) TAKES BEFORE BREAKFAST Melatonin (Melatonin) 5 Mg Tablet, 5 MG PO QHS, (Reported) Metoprolol Tartrate (Metoprolol Tartrate) 25 Mg Tab, 12.5 MG PO BID, (Reported) Pantoprazole Sodium (Pantoprazole Sodium) 20 Mg Tablet.dr, 20 MG PO BID, (Reported) Potassium Chloride (Potassium Chloride) 10 Meq Tab.er.prt, 30 MEQ PO DAILY, (Rep orted) Prednisone (Prednisone) 5 Mg Tablet, 5 MG PO DAILY, (Reported) TAPER DOSE, DUE TO BEING 5MG DOSE 04/26/21 Rivaroxaban (Xarelto) 15 Mg Tablet, 15 MG PO QHS, (Reported) Sertraline Hcl (Zoloft) 100 Mg Tablet, 200 MG PO DAILY, (Reported) Simvastatin (Zocor) 80 Mg Tablet, 40 MG PO QHS, (Reported) Tamsulosin HCl (Flomax) 0.4 Mg Capsule, 0.4 MG PO QHS, (Reported) Tiotropium [place] (Spiriva Respimat) 4 Gm Mist.inhal, 2 PUFFS INH DAILY, (Reported) Torsemide (Torsemide) 20 Mg Tablet, 20 MG PO BID Scheduled PRN Cetirizine HCl (Cetirizine HCl) 10 Mg Tablet, 10 MG PO DAILY PRN for ALLERGIES, (Reported) Clotrimazole (Clotrimazole) 1% 30GM Cream..g., 1 DOSE TOP BID PRN for RASH, (Reported) APPLIES TO GROIN AND LEGS NEEDED FOR YEAST INFECTION Simethicone (Simethicone) 80 Mg Tab.chew, 160 MG PO ACHS PRN for GAS PAIN, (Reported) Allergies Coded Allergies: amlodipine (Verified Allergy, Unknown, 04/27/19) atenolol (Verified Allergy, Unknown, 04/27/19) albuterol (Verified Adverse Reaction, Mild, increased HR, 04/01/20) MEENU WILHELM MD Apr 27, 2021 11:35
[2021-04-27 12:00] VITALS: BP 120/63
[2021-04-27] MEDS ORDERED: TAMSULOSIN 0.4 MG CAP PO SCH (21:00)
== END 2021-04-27 14:50 | disposition home health service (06) ==
LOC: M ED 07:08 → M ED INP 07:09 → ENRESERV 16:30 → M PCU 18:54
PROVIDERS: ADMIT Internal Medicine; ATTEND Internal Medicine
DX: R06.02 Shortness of breath (principal); R60.0 Localized edema; D72.829 Elevated white blood cell count, unspecified; E87.0 Hyperosmolality and hypernatremia; E87.2 Acidosis; J84.03 Idiopathic pulmonary hemosiderosis; J96.11 Chronic respiratory failure with hypoxia; Z99.81 Dependence on supplemental oxygen; J44.9 Chronic obstructive pulmonary disease, unspecified; I48.20 Chronic atrial fibrillation, unspecified; I25.10 Atherosclerotic heart disease of native coronary artery without angina pectoris; Z95.5 Presence of coronary angioplasty implant and graft; I12.9 Hypertensive chronic kidney disease with stage 1 through stage 4 chronic kidney disease, or unspecified chronic kidney disease; E11.22 Type 2 diabetes mellitus with diabetic chronic kidney disease; G47.33 Obstructive sleep apnea (adult) (pediatric); F32.9 Major depressive disorder, single episode, unspecified; K21.9 Gastro-esophageal reflux disease without esophagitis; N40.0 Benign prostatic hyperplasia without lower urinary tract symptoms; Z79.899 Other long term (current) drug therapy; Z79.01 Long term (current) use of anticoagulants; Z79.52 Long term (current) use of systemic steroids; Z88.8 Allergy status to other drugs, medicaments and biological substances; Z87.891 Personal history of nicotine dependence
CPT/HCPCS: 36415; 71045; 71250; 80048; 80076; 82550; 82553; 82803; 83605; 83735; 83880; 84145; 84436; 84443; 84484; 85025; 87040; 87631; 93005; 93041; 94640; 96374; 99285; G0378; J1940; J7512

== ENCOUNTER 2021-05-14 21:45 | Inpatient (IN) | payer OTHER ==
[~2021-05-14] VITALS: Ht 175.3 cm; Wt 101.1 kg
[2021-05-14] MEDS: HumaLOG INSULIN (NovoLOG) PER UNIT SC SCH (21:00)
[~2021-05-14 21:45] MED LIST changes: +QUET1TAB17 PO; -QUET25TA3 PO; +SPIR1AER INH
--- NOTE | 2021-05-14 22:33 | REPVR ---
PROCEDURE INFORMATION: Exam: XR Chest Exam date and time: 05/14/2021 10:15 PM Age: 70 years old Clinical indication: Dyspnea; Additional info: cough TECHNIQUE: Imaging protocol: XR of the chest. Views: 1 view. COMPARISON: CT Chest without contrast 04/26/2021 9:36 AM FINDINGS: Lungs: There are bilateral airspace opacities, without significant change compared to the prior chest x-ray on 04/26/2021. Pleural spaces: Unremarkable. No pleural effusion. No pneumothorax. Heart/Mediastinum: Unremarkable. No cardiomegaly. Bones/joints: There are old healed fractures of the right posterior 6th, 7th, 8th, and 9th ribs. IMPRESSION: Bilateral airspace opacities, without significant change compared to the prior chest x-ray on 04/26/2021 and may represent multifocal pneumonia. Electronically signed by: Jose Kulkarni On 05/14/2021 22:33:00 PM
[2021-05-14 22:44] LABS: BASO % 0.2 % (0.0-1.0); EOS # 0.2 10^3/uL (0.0-0.5); EOS % 1.7 % (0.0-3.0); HEMATOCRIT 36.6 % (42.0-52.0); HEMOGLOBIN 11.2 g/dl (13.5-17.5); LYMPH # 0.7 10^3/uL (1.5-5.0); LYMPH % 5.4 % (24.0-44.0); MEAN CORPUSCULAR HEMOGLOBIN 24.7 pg (27.0-33.0); MEAN CORPUSCULAR HGB CONC 30.6 g/dl (32.0-36.5); MEAN CORPUSCULAR VOLUME 80.8 fl (80.0-96.0); NEUTROPHILS # 11.6 10^3/uL (1.5-8.5); PLATELET COUNT, AUTOMATED 217 10^3/uL (150-450); RED BLOOD COUNT 4.53 10^6/uL (4.30-6.10); VENOUS BASE EXCESS 4.8 (-2.0-2.0); VENOUS HCO3 30.1 MEQ/L (23.0-27.0); VENOUS O2 SATURATION 53.7 % (60.0-80.0); VENOUS PARTIAL PRESSURE CO2 47.3 mmHg (38.0-50.0); VENOUS PARTIAL PRESSURE O2 30.7 mmHg (30.0-50.0); VENOUS PH 7.421 UNITS (7.330-7.430); VENOUS STANDARD HCO3 27.8 MEQ/L; VENOUS TOTAL CO2 31.5 MEQ/L (24.0-28.0); WHITE BLOOD COUNT 13.6 10^3/uL (4.0-10.0)
[2021-05-14 23:14] LABS: ALBUMIN 2.7 GM/DL (3.2-5.2); ALT/SGPT 11 U/L (12-78); BILIRUBIN,DIRECT 0.3 MG/DL (0.0-0.2); BILIRUBIN,TOTAL 0.8 MG/DL (0.2-1.0); BLOOD UREA NITROGEN 19 MG/DL (7-18); CALCIUM LEVEL 8.1 MG/DL (8.8-10.2); CARBON DIOXIDE LEVEL 28 MEQ/L (21-32); CHLORIDE LEVEL 105 MEQ/L (98-107); CK-MB VALUE MASS < 1.0 NG/ML (<3.6); CPK CREATINE PHOSPHOKINASE 31 U/L (39-308); CREATININE FOR GFR 1.49 MG/DL (0.70-1.30); GLOMERULAR FILTRATION RATE 49.5 (>42); GLUCOSE, FASTING 101 MG/DL (70-100); MB/CK RELATIVE INDEX 3.23 (< OR =4); NT-PRO BNP 3125 PG/ML (<125); POTASSIUM SERUM 3.2 MEQ/L (3.5-5.1); SODIUM LEVEL 143 MEQ/L (136-145); TOTAL PROTEIN 6.3 GM/DL (6.4-8.2); TROPONIN I < 0.02 NG/ML (< 0.10)
[2021-05-14] MEDS ORDERED: LevoFLOXacin IV 750 MG in IV 1 EA IV ONE (23:30)
[2021-05-14 23:42] LABS: RSV AMPLIFICATION NEGATIVE (NEGATIVE)
[2021-05-14] MEDS ORDERED: POTASSIUM CHLORIDE 10 MEQ SR TABLET PO ONE (23:45)
[2021-05-14] MEDS ORDERED: FUROSEMIDE 40MG/4ML VIAL (J1940) IV ONE (23:45)
[2021-05-15] MEDS ORDERED: TORS20TA2 PO (00:08)
[2021-05-15] MEDS ORDERED: BUSP15TA47 PO (00:08)
[2021-05-15] MEDS ORDERED: HOME MED LIST COMPLETE! XX SCH (00:10)
[2021-05-15] MEDS ORDERED: IPRATROPIUM 0.5MG/ALBUTEROL 2.5MG INH SOL UD 3ML (DUONEB) NEB PRN (00:15)
[2021-05-15] MEDS ORDERED: ACETAMINOPHEN TAB 650MG DOSE (2X325MG) PO PRN (00:15)
[2021-05-15] MEDS ORDERED: GLUCAGON INJ 1MG VIAL SC PRN (00:20)
[2021-05-15] MEDS ORDERED: DEXTROSE 50% 50 ML SYRINGE IV PRN (00:20)
[2021-05-15] MEDS ORDERED: GLUCOSE 4GM CHEW TABLET PO PRN (00:20)
--- NOTE | 2021-05-15 00:51 | REPVR ---
PROCEDURE INFORMATION: Exam: CT Chest Without Contrast; Diagnostic Exam date and time: 05/14/2021 12:06 AM Age: 70 years old Clinical indication: Shortness of breath; Additional info: tachycardic, hypoxic TECHNIQUE: Imaging protocol: Diagnostic computed tomography of the chest without contrast. 3D rendering (Not supervised by radiologist): MIP and/or 3D reconstructed images were created by the technologist. Radiation optimization: All CT scans at this facility use at least one of these dose optimization techniques: automated exposure control; mA and/or kV adjustment per patient size (includes targeted exams where dose is matched to clinical indication); or iterative reconstruction. COMPARISON: 1. CT Chest without contrast 04/26/2021 9:[address] ANGIO CHEST 12/16/2015 11:39:41 PM FINDINGS: Thyroid: There is a 5 mm cyst in the left lobe of the thyroid gland, which is stable compared to the CT chest on 04/26/2021. No enlargement of the thyroid is noted. Trachea: Normal. Bronchial tree: Normal. Lungs: There are extensive ground-glass opacities in both lungs, with mild progression in the left upper lobe, lingula, and left lower lobe since the prior CT chest on 04/26/2021. There is subpleural scarring or consolidation in the right upper lobe, which is unchanged compared to the CT chest on 04/26/2021. There are centrilobular and paraseptal emphysematous changes, which are stable compared to the CT chest on 04/26/2021. There is suture material in the right lower lobe. There are calcified granulomas in both upper lobes, which are unchanged compared to the CT chest on 04/26/2021. Pleural spaces: There is a trace right pleural effusion, which has decreased in size compared to the CT chest on 04/26/2021. No pneumothorax. Heart: No cardiomegaly or pericardial effusion. There are coronary artery calcifications. Mediastinal space: No mediastinal mass is seen. There is a small sliding hiatal hernia, which is similar in appearance compared to the prior CT chest on 04/26/2021. Aorta: No thoracic aortic aneurysm or intramural hematoma is noted. There are mild atherosclerotic calcifications. Lymph nodes: There are subcentimeter mediastinal lymph nodes, which are stable compared to the CT chest on 04/26/2021. However, no abnormally enlarged lymph nodes measuring greater than 1 cm in short axis are noted. Gallbladder and bile ducts: No calcified gallstones are noted. No gallbladder wall thickening, pericholecystic fluid, or pericholecystic inflammatory changes are identified. No dilation of the bile ducts is noted. No calcified stones are seen in the common bile duct. Spleen: Unremarkable. No splenomegaly is noted. Adrenal glands: Normal. No adrenal mass is noted. Bones/joints: There are old healed fractures of the right posterolateral 6th, 7th, 8th, and 9th ribs. No acute fracture or dislocation is noted. There are bridging paraspinal osteophytes at multiple contiguous levels in the thoracic spine, which are findings compatible with diffuse idiopathic skeletal hyperostosis. Soft tissues: There is severe bilateral gynecomastia, which is similar in appearance compared to the CT chest on 04/26/2021. IMPRESSION: 1. Extensive ground-glass opacities in both lungs, with mild progression in the left upper lobe, lingula, and left lower lobe since the prior CT chest on 04/26/2021. Differential diagnostic considerations include but are not limited to nonspecific interstitial pneumonia, hypersensitivity pneumonitis, respiratory bronchiolitis interstitial lung disease, desquamative interstitial pneumonia, and lymphocytic interstitial pneumonia. 2. Trace right pleural effusion, which has decreased in size compared to the CT chest on 04/26/2021. COMMENTS: Consistent with the [employer]'s Incidental Findings Committee white paper (J Am Edgardo Radiol 2015): In patients aged 35 years and older with an incidental thyroid nodule equal to or greater than 1.[address], MRI or extrathyroidal US, further evaluation with dedicated thyroid US is recommended for patients with normal life expectancy and without comorbidities. For smaller nodules without suspicious features, no further evaluation or follow up is recommended. Electronically signed by: Jose Kulkarni On 05/15/2021 00:50:40 AM
--- NOTE | 2021-05-15 02:24 | HPEPDOC ---
General Date of Admission 05/15/21 Date of Service: May 15, 2021 Chief Complaint Diff. Breathing. Source: Patient History of Present Illness Mr. Quintero is a 70 year old male with past medical history of idiopathic pulmonary hemosiderosis, COPD s/p wedge resection, diastolic congestive heart failure, coronary artery disease, hyperlipidemia, obstuctive sleep apnea, CKD stage 3, and type 2 diabetes mellitus who presented to the ED for increasingly worsening shortness of breath and leg swelling. Notably worse past 2 days. He was discharged on 4 Liters of oxygen NC on 04/27 and reports he "felt good for a few days" then progressively worse. Pt also had previous admissions mid March and January of this year. Pt reports he has at baseline dry cough. He does endorse generalized weakness, worsening dyspnea on exertion and chills recently. He lives at home with his daughter, son-in-law, and ex-. Pt denies tee, sinus congestion, sore throat, productive cough, palpitations, c hest pain, n/v/d, abdominal pain, sensory changes or syncope. Patient did report in hindsight- 2 days ago- he had trouble walking on his right foot and it is noted to be some increased redness and swelling on the right side greater than the left. He denies trauma. He reports that he thinks he has gout but denies a history of gout. No obvious wound to the right lower extremity. Home Medications Scheduled Ascorbic Acid (Vitamin C) 250 Mg Tablet, 250 MG PO DAILY, (Reported) Bupropion HCl (Bupropion HCl Sr) 100 Mg Tab.sr.12h, 100 MG PO DAILY, (Reported) Buspirone HCl (Buspirone HCl) 15 Mg Tablet, 15 MG PO DAILY, (Reported) Cholecalciferol (Vitamin D3) (Vitamin D3) 25 Mcg Tablet, 25 MCG PO DAILY, (Reported) Docusate Sodium (Docusate Sodium) 100 Mg Cap, 200 MG PO BID, (Reported) Ferrous Gluconate (Ferrous Gluconate) 324 Mg Tab, 648 MG PO BID, (Reported) Finasteride (Finasteride) 5 Mg Tab, 5 MG PO DAILY, (Reported) Glipizide (Glipizide) 5 Mg Tab, 2.5 MG PO DAILY, (Reported) TAKES BEFORE BREAKFAST Metoprolol Tartrate (Metoprolol Tartrate) 25 Mg Tab, 12.5 MG PO BID, (Reported) Pantoprazole Sodium (Pantoprazole Sodium) 20 Mg Tablet.dr, 20 MG PO BID, (Reported) Potassium Chloride (Potassium Chloride) 10 Meq Tab.er.prt, 20 MEQ PO BID, (Reported) Prednisone (Prednisone) 20 Mg Tablet, 40 MG PO DAILY Rivaroxaban (Xarelto) 15 Mg Tablet, 15 MG PO QHS, (Reported) Sertraline Hcl (Zoloft) 100 Mg Tablet, 200 MG PO DAILY, (Reported) Simvastatin (Zocor) 80 Mg Tablet, 40 MG PO QHS, (Reported) Tamsulosin HCl (Flomax) 0.4 Mg Capsule, 0.4 MG PO QHS, (Reported) Tiotropium [place] (Spiriva Respimat) 4 Gm Mist.inhal, 2 PUFFS INH DAILY, (Repor hilaria) Torsemide (Torsemide) 20 Mg Tablet, 20 MG PO BID, (Reported) Scheduled PRN Cetirizine HCl (Cetirizine HCl) 10 Mg Tablet, 10 MG PO DAILY PRN for ALLERGIES, (Reported) Clotrimazole (Clotrimazole) 1% 30GM Cream..g., 1 APPLIC TOP BID PRN for RASH, (Reported) APPLIES TO GROIN AND LEGS NEEDED FOR YEAST INFECTION Melatonin (Melatonin) 5 Mg Tablet, 5 MG PO QHS PRN for INSOMNIA, (Reported) Simethicone (Simethicone) 80 Mg Tab.chew, 160 MG PO ACHS PRN for GAS PAIN, (Reported) Allergies Coded Allergies: amlodipine (Verified Allergy, Unknown, 04/27/19) atenolol (Verified Allergy, Unknown, 04/27/19) albuterol (Verified Adverse Reaction, Mild, increased HR, 04/01/20) Past Medical History Medical History Idiopathic pulmonary hemosiderosis COPD s/p wedge resection Diastolic congestive heart failure Coronary artery disease Hyperlipidemia Atrial fibrillation Hypertension Obstructive sleep apnea CKD stage III Type 2 Diabetes Mellitus Surgical History Left cataract removal with lens implant Left retinal repair Pulmonary wedge resection Pulmonary biopsy Bronchoscopy x2 Family History Significant Family History: No pertinent family hx Social History * Smoker: former Smoker Alcohol: Denies Drugs: denies Recent Travel/Sick Contacts: Denies: Recent travel, Recent sick contacts Psychosocial History: No pertinent psych hx A-FIB/CHADSVASC A-FIB History Current/History of A-Fib/PAF?: Yes Current PO Anticoag Therapy: Yes Review of Systems Constitutional: Reports: Weakness, Fatigue; Denies: Chills, Fever, Night Sweats Eyes: Denies: Pain, Vision change ENT: Denies: Head Aches, Ear Pain, Dysphagia Skin: Denies: Rash, Lesions, Breakdown Pulmonary: Reports: Dyspnea, Cough Cardiovascular: Reports: Edema; Denies: Chest Pain, Palpitations, Orthopnea, Paroxysmal Noc. Dyspnea, Lt Headedness Gastrointestinal: Denies: Nausea, Vomiting, Abdominal Pain, Diarrhea Genitourinary: Denies: Dysuria, Frequency, Incontinence, Retention Hematologic: Denies: Bruising, Bleeding Excessively Musculoskeletal: Reports: Leg Pain; Denies: Neck Pain, Back Pain, Joint Pain, Muscle Pain, Spasms Neurological: Denies: Weakness, Numbness, Change in speech, Confusion Psych: Reports: Mood Normal; Denies: Depression, Memory Issues Physical Examination General Exam: Positive: Alert, Cooperative, No Acute Distress Eye Exam: Positive: PERRLA, Conjunctiva & lids normal, EOMI; Negative: Sclera icteric ENT Exam: Positive: Atraumatic, Mucous membr. moist/pink, Pharynx Normal Neck Exam: Positive: Supple; Negative: JVD, thyromegaly Chest Exam: Positive: Diminished Heart Exam: Positive: Rate Normal, Irregular Rhythm, Normal S1, Normal S2; Negative: Murmurs, Rubs Telemetry: Positive: Atrial fibrillation Abdomen Exam: Positive: Normal bowel sounds, Soft; Negative: Tenderness, Hepatospenomegaly Extremity Exam: Positive: Edema (Right greater than left), Normal pulses; Negative: Clubbing, Cyanosis Skin Exam: Positive: Nl turgor and temperature, Other skin issue (Pinkness to the right lower extremity; edema right greater than left); Negative: Breakdown, Lesion Neuro Exam: Positive: Normal Gait, Normal Speech, Cranial Nerves 3-12 NL, Reflexes 2+ Psych Exam: Positive: Mental status NL, Mood NL, Oriented x 3 Vital Signs Vital Signs Date Time Temp Pulse Resp B/P (MAP) Pulse Ox O2 Delivery O2 Flow Rate FiO2 05/14/21 23:15 103 18 95 Nasal Cannula 4.0 05/14/21 22:15 148/79 (102) 05/14/21 21:57 99.6 Laboratory Data Labs 24H Laboratory Tests 2 05/14/21 22:36: Immature Granulocyte % (Auto) 0.7, Neutrophils (%) (Auto) 85.0H, Lymphocytes (%) (Auto) 5.4L, Monocytes (%) (Auto) 7.0, Eosinophils (%) (Auto) 1.7, Basophils (%) (Auto) 0.2, Neutrophils # (Auto) 11.6H, Lymphocytes # (Auto) 0.7L, Monocytes # (Auto) 1.0H, Eosinophils # (Auto) 0.2, Basophils # (Auto) 0.0, Nucleated Red Blood Cells % (auto) 0.0, Blood Gas Bicarbonate Standard 27.8, Venous Blood pH 7.421, Venous Blood Partial Pressure CO2 47.3, Venous Blood Partial Pressure O2 30.7, Venous Blood Total Carbon Dioxide 31.5H, Venous Blood HCO3 30.1H, Venous Blood Oxygen Saturation 53.7L, Venous Blood Base Excess 4.8H, Anion Gap 10, Glomerular Filtration Rate 49.5, Calcium Level 8.1L, Total Bilirubin 0.8, Direct Bilirubin 0.3H, Aspartate Amino Transf (AST/SGOT) 18, Alanine Aminotransferase (ALT/SGPT) 11L, Alkaline Phosphatase 63, Total Creatine Kinase 31L, Creatine Kinase MB < 1.0, Creatine Kinase MB Relative Index 3.23, Troponin I < 0.02, NS-Rjv-N-Type Natriuretic Peptide 3125H, Total Protein 6.3L, Albumin 2.7L, Albumin/Globulin Ratio 0.8, Coronavirus (COVID-19)(PCR) NEGATIVE, Influenza Type A (RT-PCR) NEGATIVE, Influenza Type B (RT-PCR) NEGATIVE, Respiratory Syncytial Virus (PCR) NEGATIVE CBC/BMP Laboratory Tests 05/14/21 22:36 Microbiology Microbiology 05/14/21 Blood Culture, Received Pending 05/14/21 Blood Culture, Received Pending Assessment/Plan 1. Acute on chronic respiratory failure: -likely multifactorial and secondary to pneumonia in patient with underlying interstitial lung disease, COPD and diastolic congestive heart failure -CT was slightly worse than Chest CT 04/26/21; however decreased trace right pleural effusion comparatively. -Patient shows compensation on 5 L nasal cannula, which is an increase from new 4 L baseline -Respiratory panel negative -Given patient frequent admissions will opt for MDR coverage to include Levaquin, Vanco and Zosyn. -Check pro-[place]/lactic follow-up on cultures and consider de-escalation. -Legionella sent. -Consider pulmonology consult given patient extensive pulmonary concerns and frequent admissions. 2. Diastolic congestive heart failure -Plan for diuresis given patient increased bilateral lower extremity edema, however CT chest showed mild decrease in pleural effusion and thus may de- escalate in 24 to 48-hours. -BNP 3105, last was 1359 -On physical exam there is no appreciable JVD, but 1+ pitting bilateral lower extremity edema -Monitor I's and O's -continue 2 gram sodium diet -continue daily weighs 3. Right lower extremity swelling greater than left lower extremity: Patient with some redness/pink to the right ankle compared to the left. Patient had endorsed some discomfort with walking 2 days ago. No overt wounds. Would be positional with the edema given the way patient was sitting up in the ED. However will check uric acid and D-dimer. Lower suspicion for DVT given patient has been compliant with blood thinner however consider ultrasound right lower extremity. 4. Coronary artery disease -Continue simvastatin 5. Atrial fibrillation -Monitor patient telemetry; periodic tachycardia while in ED likely relative to demand. Plan to continue metoprolol and OAC. Consider IV rate controlling agents if sustained heart rate over 110. 6. Idiopathic pulmonary hemosiderosis: -diagnosed 20+ years ago by the [facility] -continue ferrous gluconate -Patient chronically on 20mg of prednisone until recently and was tapered and discontinued his last admission. Again consider further pulmonary recommendations regarding use of long-term steroids. 7. COPD -s/p wedge resection -patient is a former smoker -He follows pulmonology at the [facility] in [place] and [facility] outpatient appointment. -Continue Spiriva that was started last admission 8. CKD Stage 3 -Creatinine 1.49, at baseline. -Given risk for overload we'll be cognizant of fluid balance and hold off on any hydration presently. -Avoid nephrotoxins as able -A.m. labs 8. HTN -In setting of infection thankfully stable -continue metoprolol 9. T2DM -Check A1c. Monitor blood glucose ACH S. Sliding scale insulin. 10. Deconditioning and frail elder: Plan for fall precautions. Consider PT for therapeutic purposes. 1 Class 2 obesity complicates care DVT: Xarelto CODE STATUS: DNR/DNI Dispo planning: Home anticipate two midnights Plan / VTE VTE Prophylaxis Ordered?: Yes TATO NUÑEZ NP May 15, 2021 00:19 NEERU MUÑOZ MD May 23, 2021 06:23
[2021-05-15] MEDS ORDERED: CETIRIZINE (ZyrTEC) 10 MG TAB PO PRN (03:10)
[2021-05-15] MEDS ORDERED: RAMELTEON 8 MG TAB (ROZEREM) PO PRN (03:10)
[2021-05-15] MEDS ORDERED: SIMETHICONE 80MG CHEW TAB PO PRN (03:10)
[2021-05-15] MEDS: TAMSULOSIN 0.4 MG CAP PO SCH ×2 (03:51→21:19)
[2021-05-15] MEDS: RIVAROXABAN 15 MG TAB (XARELTO) PO SCH ×2 (03:51→21:19)
[2021-05-15] MEDS: SIMVASTATIN 40 MG TAB PO SCH ×2 (03:52→21:20)
[2021-05-15] MEDS: PIPERACILLIN/TAZOBACTAM SOD 3.375 GM in D5W MINI-BAG PLUS 50 ML IV SCH ×2 (03:52→11:01)
[2021-05-15] MEDS: VANCOMYCIN HCL 1,000 MG, VIAL MATE ADAPTER 1 EACH in NS 250 ML IV SCH ×2 (05:23→08:57)
--- NOTE | 2021-05-15 05:49 | ECGEPIP ---
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
[2021-05-15 06:57] LABS: BASO % 0.2 % (0.0-1.0); EOS # 0.2 10^3/uL (0.0-0.5); EOS % 1.7 % (0.0-3.0); HEMATOCRIT 35.2 % (42.0-52.0); HEMOGLOBIN 10.7 g/dl (13.5-17.5); LYMPH # 1.6 10^3/uL (1.5-5.0); LYMPH % 12.8 % (24.0-44.0); MEAN CORPUSCULAR HEMOGLOBIN 24.3 pg (27.0-33.0); MEAN CORPUSCULAR HGB CONC 30.4 g/dl (32.0-36.5); MEAN CORPUSCULAR VOLUME 79.8 fl (80.0-96.0); MONO # 1.1 10^3/uL (0.0-0.8); MONO % 8.7 % (2.0-8.0); NEUTROPHILS # 9.3 10^3/uL (1.5-8.5); NEUTROPHILS % 75.7 % (36.0-66.0); PLATELET COUNT, AUTOMATED 223 10^3/uL (150-450); RED BLOOD COUNT 4.41 10^6/uL (4.30-6.10); WHITE BLOOD COUNT 12.3 10^3/uL (4.0-10.0)
[2021-05-15 07:17] LABS: CREATININE FOR GFR 1.68 MG/DL (0.70-1.30); GLOMERULAR FILTRATION RATE 43.1 (>42); POTASSIUM SERUM 3.2 MEQ/L (3.5-5.1)
[2021-05-15] MEDS ORDERED: FUROSEMIDE 40MG/4ML VIAL (J1940) IV SCH (08:00)
[2021-05-15] MEDS: HumaLOG INSULIN (NovoLOG) PER UNIT SC SCH ×5 (08:58→21:00)
[2021-05-15] MEDS ORDERED: METOPROLOL TART 12.5 MG PER 1/2 TAB PO SCH (09:00)
--- NOTE | 2021-05-15 09:25 | IPNPDOC ---
Text Note Date of Service The patient was seen on 05/15/21. NOTE S: Pt seen and evaluated at bedside this AM. Reports continued SOB w/ minimal exertion, dry cough. He has been admitted to the hospital 6x's over last 3mo for similar presentation. He was recently hospitalized 04/26 for worsening SOB and fluid retention and d/c home 04/27 w/ improved sx and increased home O2 requirement (4L). He is now on 5L NC, O2sat 92% w/ worsening O2sat when ambulating. Reports b/l LE edema that was unresolved during last hospitalization and has worsened (specifically, pedal edema). Following hospital d/c last week, he f/u w/ Pulmonology (Dr. Helms) outpatient. He tells me he was scheduled to receive 1st dose of COVID vaccine today. Reports new onset pain in right medial/lateral ankles. He tells me pain and redness in RLE came on suddenly 4days ago and progressed to point of severe pain w/ weight-bearing. Denies recent trauma to the area. O: GEN: sitting up in bed, NAD, alert and awake HEENT: NC/AT, EOMI, nasal cannula in place (O2sat 92% on 5L NC) CARDIO: normal heart sounds, irregularly irregular rhythm, RR, no MRG PULM: CTA b/l, no WRR, no crackles, no accessory muscles used ABD: normal BS, soft, nontender, nondistended EXTREMITIES: 2+ b/l pitting edema, normal ROM; tenderness w/ minimal palpation right medial/lateral malleoli SKIN: skin irritation/breakdown in umbilicus; RLE warm, minimal distal redness, redness overlying medial malleolus IMAGING: Echocardiogram (04/10/21): 1. Study is of fair technical quality corresponding to patient's body habitus. Underlying atrial fibrillation with controlled rate. 2. Normal LV size with preserved LV systolic function. 3. Very prominent aortic sclerosis, but only minimal stenosis. 4. No additional significant valvular disease. 5. Normal central venous pressure. 6. Unable to estimate pulmonary artery pressure, but no signs to suggest pulmonary hypertension. 7. Biatrial enlargement. CXR (05/14): Bilateral airspace opacities, without significant change compared to the prior chest x-ray on 04/26/2021 and may represent multifocal pneumonia. Chest CT (05/14): 1. Extensive ground-glass opacities in both lungs, with mild progression in the left upper lobe, lingula, and left lower lobe since the prior CT chest on 04/26/2021. Differential diagnostic considerations include but are not limited to nonspecific interstitial pneumonia, hypersensitivity pneumonitis, respiratory bronchiolitis interstitial lung disease, desquamative interstitial pneumonia, and lymphocytic interstitial pneumonia. 2. Trace right pleural effusion, which has decreased in size compared to the CT chest on 04/26/2021. A/P: 70M PMH COPD s/p wedge resection, Idiopathic Pulm Hemosiderosis, diastolic CHF, w/ worsening SOB on exertion, found to have worsening b/l ground glass opacities on chest CT concerning for acute on chronic hypoxia 2/2 interstitial disease vs dCHF on Vancomycin and Zosyn, day1 w/ unchanged clinical status. #Acute on Chronic hypoxia, most likely 2/2 interstitial disease Resp panel negative. Resp Ab panel pending. Lactate 3.9 this AM. Repeat lactate 2.3, most likely TypeA lactic acidosis 2/2 decreased perfusion Pt received 1dose Levaquin 05/14. Currently on Vanc and Zosyn, day1. Planned to receive 1dose Levaquin 05/16. D/c Zosyn, levaquin Start Cefepime, day1 #Possible acute diastolic CHF exacerbation, unlikely Pt does not appear fluid overloaded on clinical exam Most recent echocardiogram (04/10/21), as noted above D/c Lasix Monitor I+Os Monitor daily weight #RLE swelling and redness Ddimer 2183.24 Duplex RLE u/s pending #Afib RvR Pt has chronic Afib. He continues to be in Afib this AM HR 103 (102-128) Increase Metoprolol 25mg BID On Xarelto 15mg #Hypokalemia, asx K+ 3.2 this AM KCl 40mg BID x1 Monitor labs #COPD s/p wedge resection On Spiriva, Atrovent PRN #CKD3- stable BUN 19, Cr 1.68 Baseline Cr 1.3-1.6 #LAKESHIA On home CPAP #DM2 On Insulin SS #HLD On Simvastatin #BPH On Finasteride, Tamulosin #Bipolar disorder On Wellbutrin, Buspar, Zoloft #GERD On Protonix #DVT Prophylaxis On Xarelto DISPO: pending clinical improvement Activity as tolerated w/ fall precautions 2g Na diet, consistent carbs VS,Fishbone, I+O VS, Fishbone, I+O Laboratory Tests 05/14/21 22:36 05/15/21 06:43 Vital Signs Date Time Temp Pulse Resp B/P (MAP) Pulse Ox O2 Delivery O2 Flow Rate FiO2 05/15/21 08:23 18 92 Nasal Cannula 5.0 05/15/21 08:15 113 115/78 (90) 05/14/21 21:57 99.6 GME ATTESTATION GME ATTESTATION My faculty preceptor for this patient encounter was physically present during the encounter and was fully available. All aspects of the patient interview, examination, medical decision making process, and medical care plan development were reviewed and approved by the faculty preceptor. The faculty preceptor is aware and concurs with the plan as stated in the body of this note and will attest to such by his/her cosignature. ATTENDING NOTE I, Solitario Peter MD, have independently examined this patient and performed my own physical exam, as well as reviewed the documentation and edited where necessary. I have discussed in detail with the resident / student the findings and plan of treatment as documented by the resident / student and edited their note. I agree with their findings and treatment plan and have edited their do cumentation. Dana Martinez DO May 15, 2021 09:25 SOLITARIO PETER MD May 18, 2021 11:02
[2021-05-15] MEDS: FINASTERIDE 5 MG TAB PO SCH (11:01)
[2021-05-15] MEDS: busPIRone 5 MG TAB PO SCH (11:02)
[2021-05-15] MEDS: DOCUSATE SODIUM 100MG CAPSULE PO SCH ×2 (11:03→21:19)
[2021-05-15] MEDS: SERTRALINE 100 MG TAB PO SCH (11:03)
[2021-05-15] MEDS: METOPROLOL TART 25 MG TABLET PO SCH ×2 (11:05→21:20)
[2021-05-15] MEDS: LACTOBACILLUS ACIDOPHILUS CAP (BACID) PO SCH (11:07)
[2021-05-15] MEDS: PANTOPRAZOLE 20 MG TAB PO SCH ×2 (11:08→21:20)
[2021-05-15] MEDS: FERROUS GLUCONATE 324 MG TAB PO SCH ×2 (11:08→21:19)
[2021-05-15] MEDS: ASCORBIC ACID 250 MG TAB PO SCH (11:08)
[2021-05-15] MEDS: buPROPion (WELLBUTRIN SR) 100 MG SR TAB PO SCH (11:08)
[2021-05-15] MEDS: POTASSIUM CHLORIDE 10 MEQ SR TABLET PO SCH ×2 (11:10→21:19)
[2021-05-15] MEDS: TIOTROPIUM INHALER/CAPSULE (SPIRIVA) INH SCH (11:49)
[2021-05-15] MEDS: CEFEPIME HCL 2 GM in D5W MINI-BAG PLUS 50 ML IV SCH (12:27)
[2021-05-15] MEDS ORDERED: IPRATROPIUM 0.02% SOLN 0.5MG 2.5ML NEB INH PRN (14:30)
[2021-05-15] MEDS ORDERED: IPRATROPIUM 0.02% SOLN 0.5MG 2.5ML NEB As Ordered ONE (14:30)
[2021-05-15 16:00] VITALS: BP 119/77
[2021-05-15 16:30] VITALS: O2SAT 91
[2021-05-15] MEDS ORDERED: VANCOMYCIN HCL 1,000 MG, VIAL MATE ADAPTER 1 EACH in NS 250 ML IV SCH (18:00)
[2021-05-15 21:00] VITALS: O2SAT 90
[2021-05-15 22:00] VITALS: BP 108/63
[2021-05-16] MEDS: CEFEPIME HCL 2 GM in D5W MINI-BAG PLUS 50 ML IV SCH ×2 (00:14→12:40)
--- NOTE | 2021-05-16 01:52 | REPVR ---
PROCEDURE INFORMATION: Exam: US Duplex Right Lower Extremity Veins, Limited Exam date and time: 05/16/2021 12:56 AM Age: 70 years old Clinical indication: Edema, localized; Lower extremity, right; Additional info: R/O dvt TECHNIQUE: Imaging protocol: Real-time Duplex ultrasound of the Right Lower Extremity with 2-D arechiga scale, color Doppler flow and spectral waveform analysis with image documentation. Limited exam was focused on the right lower extremity veins. COMPARISON: No relevant prior studies available. FINDINGS: Right deep veins: Common femoral, femoral, proximal profunda femoral and popliteal veins are patent without thrombus. Normal Doppler waveforms. Normal compressibility and/or augmentation response. Right superficial veins: Saphenofemoral junction is patent without thrombus. Soft tissues: No abnormal focal fluid collection. IMPRESSION: No evidence of right lower extremity deep vein thrombosis. Electronically signed by: Roddy Nick On 05/16/2021 01:51:48 AM
[2021-05-16 05:43] LABS: BASO % 0.2 % (0.0-1.0); EOS # 0.3 10^3/uL (0.0-0.5); EOS % 2.4 % (0.0-3.0); HEMATOCRIT 32.3 % (42.0-52.0); LYMPH # 0.7 10^3/uL (1.5-5.0); MEAN CORPUSCULAR HEMOGLOBIN 24.8 pg (27.0-33.0); MONO # 0.8 10^3/uL (0.0-0.8); MONO % 5.7 % (2.0-8.0); NEUTROPHILS # 11.3 10^3/uL (1.5-8.5); NEUTROPHILS % 86.1 % (36.0-66.0); PLATELET COUNT, AUTOMATED 206 10^3/uL (150-450); RED BLOOD COUNT 4.04 10^6/uL (4.30-6.10); WHITE BLOOD COUNT 13.2 10^3/uL (4.0-10.0)
[2021-05-16 06:00] VITALS: BP 124/83
[2021-05-16 06:10] LABS: CALCIUM LEVEL 8.6 MG/DL (8.8-10.2); CREATININE FOR GFR 1.54 MG/DL (0.70-1.30); GLOMERULAR FILTRATION RATE 47.6 (>42); POTASSIUM SERUM 3.9 MEQ/L (3.5-5.1); VANCOMYCIN LEVEL TROUGH 17.3 UG/ML (10.0-20.0)
[2021-05-16] MEDS: TIOTROPIUM INHALER/CAPSULE (SPIRIVA) INH SCH (06:13)
[2021-05-16 08:50] VITALS: O2SAT 90
[2021-05-16] MEDS ORDERED: methylPREDNISolone 125MG 2ML VIAL IV ONE (08:50)
[2021-05-16] MEDS: LACTOBACILLUS ACIDOPHILUS CAP (BACID) PO SCH (08:52)
[2021-05-16] MEDS: PANTOPRAZOLE 20 MG TAB PO SCH ×2 (08:52→20:24)
[2021-05-16] MEDS: busPIRone 5 MG TAB PO SCH (08:52)
[2021-05-16] MEDS: FERROUS GLUCONATE 324 MG TAB PO SCH ×2 (08:53→20:18)
[2021-05-16] MEDS: SERTRALINE 100 MG TAB PO SCH (08:53)
[2021-05-16] MEDS: METOPROLOL TART 25 MG TABLET PO SCH ×2 (08:53→20:33)
[2021-05-16] MEDS: FINASTERIDE 5 MG TAB PO SCH (08:53)
[2021-05-16] MEDS: DOCUSATE SODIUM 100MG CAPSULE PO SCH ×2 (08:53→20:23)
[2021-05-16] MEDS: HumaLOG INSULIN (NovoLOG) PER UNIT SC SCH ×4 (08:54→20:38)
[2021-05-16] MEDS: VANCOMYCIN HCL 750 MG, VIAL MATE ADAPTER 1 EACH in NS 250 ML IV SCH ×2 (08:54→20:21)
[2021-05-16] MEDS ORDERED: LevoFLOXacin IV 750 MG in IV 1 EA IV SCH (09:00)
[2021-05-16] MEDS: buPROPion (WELLBUTRIN SR) 100 MG SR TAB PO SCH (09:00)
[2021-05-16] MEDS: ASCORBIC ACID 250 MG TAB PO SCH (09:00)
--- NOTE | 2021-05-16 09:05 | IPNPDOC ---
Text Note Date of Service The patient was seen on 05/16/21. NOTE S: Pt seen and evaluated at bedside this AM. Reports continued SOB w/ minimal exertion, dry cough. His nurse tells me his O2sat was consistently in 70's overnight while on his CPAP, pt asx and w/out complaints. Nurse d/c his CPAP and put him on NC w/ supplemental O2 titrated to 90's O2sat, which she tells me was achieved on 8L. Pt tells me he continues to have worsened SOB w/ ambulation. Denies chest pain, palpitations, abd pain, n/v. Reports continued pain, redness, swelling in right ankle. O: GEN: sitting up in bed, NAD, alert and awake HEENT: NC/AT, EOMI, nasal cannula in place (O2sat 93% on 13L NC) CARDIO: normal heart sounds, irregularly irregular rhythm, RR, no MRG PULM: CTA b/l, no WRR, no crackles, no accessory muscles used ABD: normal BS, soft, nontender, nondistended EXTREMITIES: 2+ b/l pitting pedal edema, normal ROM w/out pain; tenderness w/ minimal palpation right medial malleolus; missing left hand 3rd digit s/p trauma SKIN: skin irritation/breakdown in umbilicus; RLE venous stasis changes w/ ecchymosis overlying ant tibia; Redness, swelling, overlying medial malleolus IMAGING: Echocardiogram (04/10/21): 1. Study is of fair technical quality corresponding to patient's body habitus. Underlying atrial fibrillation with controlled rate. 2. Normal LV size with preserved LV systolic function. 3. Very prominent aortic sclerosis, but only minimal stenosis. 4. No additional significant valvular disease. 5. Normal central venous pressure. 6. Unable to estimate pulmonary artery pressure, but no signs to suggest pu lmonary hypertension. 7. Biatrial enlargement. CXR (05/14): Bilateral airspace opacities, without significant change compared to the prior chest x-ray on 04/26/2021 and may represent multifocal pneumonia. Chest CT (05/14): 1. Extensive ground-glass opacities in both lungs, with mild progression in the left upper lobe, lingula, and left lower lobe since the prior CT chest on 04/26/2021. Differential diagnostic considerations include but are not limited to nonspecific interstitial pneumonia, hypersensitivity pneumonitis, respiratory bronchiolitis interstitial lung disease, desquamative interstitial pneumonia, and lymphocytic interstitial pneumonia. 2. Trace right pleural effusion, which has decreased in size compared to the CT chest on 04/26/2021. RLE duplex u/s (05/16): No evidence of right lower extremity deep vein thrombosis. A/P: 70M PMH COPD s/p wedge resection, Idiopathic Pulm Hemosiderosis, diastolic CHF found to have worsened b/l ground glass opacities concerning for acute on chronic hypoxia 2/2 interstitial disease on Cefepime, day2 now O2sat 93% on 13L NC. #Acute on Chronic hypoxia, most likely 2/2 interstitial disease Pt has been admitted to the hospital 6x's over last 3mo for similar concerns. Recently hospitalized 04/26 for worsening SOB and fluid retention, d/c home 04/27 w/ improved sx and increased home O2 requirement (4L). This AM on 13L NC, O2sat 93% w/ worsening O2sat when ambulating. Resp panel negative. Resp Ab panel pending. Repeat lactate 1.7 Blood cx pending Legionella urine Ag pending Pt was on Vanc, d/c overnight as per pharmacy due to vanc trough 17.3 On Cefepime, day2 Start Solumedrol 80mg x1dose Recommend f/u w/ Pulmonology (Dr. Helms) upon d/c #Possible acute diastolic CHF exacerbation, unlikely Pt does not appear fluid overloaded on clinical exam Most recent echocardiogram (04/10/21), as noted above On Lasix Monitor I+Os Monitor daily weight #Right medial malleolus redness, swelling, tenderness- unchanged Duplex RLE u/s negative Denies trauma to area Most likely gout Start Solumedrol 80mg x1dose #Afib RvR Pt has chronic Afib. He continues to be in Afib this AM HR 100 On Metoprolol 25mg BID On Xarelto 15mg #Hypokalemia- RESOLVED #COPD s/p wedge resection On Spiriva, Atrovent PRN Start Solumedrol 80mg x1dose #CKD3- stable BUN 19, Cr 1.68 Baseline Cr 1.3-1.6 Vanc trough 17.3 #LAKESHIA On home CPAP O2sat overnight 70's. Pt placed on NC and supplemental O2 titrated to 90's. Consider repeat sleep study upon d/c to reevaluate and optimize CPAP settings #DM2 On Insulin SS #HLD On Simvastatin #BPH On Finasteride, Tamulosin #Bipolar disorder On Wellbutrin, Buspar, Zoloft #GERD On Protonix #DVT Prophylaxis On Xarelto DISPO: pending clinical improvement Activity as tolerated w/ fall precautions 2g Na diet, consistent carbs VS,Fishbone, I+O VS, Fishbone, I+O Laboratory Tests 05/16/21 05:31 Vital Signs Date Time Temp Pulse Resp B/P (MAP) Pulse Ox O2 Delivery O2 Flow Rate FiO2 05/16/21 08:17 91 High Flow Cannula 12.0 05/16/21 06:00 98.6 110 20 124/83 (97) I&O- Last 24 Hours up to 6 AM 05/16/21 05:59 Intake Total 1380 ml Output Total 1275 ml Balance 105 ml GME ATTESTATION GME ATTESTATION My faculty preceptor for this patient encounter was physically present during the encounter and was fully available. All aspects of the patient interview, examination, medical decision making process, and medical care plan development were reviewed and approved by the faculty preceptor. The faculty preceptor is aware and concurs with the plan as stated in the body of this note and will attest to such by his/her cosignature. ATTENDING NOTE I, Solitario Peter MD, have independently examined this patient and performed my own physical exam, as well as reviewed the documentation and edited where necessary. I have discussed in detail with the resident / student the findings and plan of treatment as documented by the resident / student and edited their note. I agree with their findings and treatment plan and have edited their documentation. Dana Martinez DO May 16, 2021 09:05 SOLITARIO PETER MD May 18, 2021 11:03
[2021-05-16] MEDS: methylPREDNISolone 125MG 2ML VIAL IV SCH (17:45)
[2021-05-16] MEDS: SIMVASTATIN 40 MG TAB PO SCH (20:23)
[2021-05-16] MEDS: RIVAROXABAN 15 MG TAB (XARELTO) PO SCH (20:23)
[2021-05-16] MEDS: TAMSULOSIN 0.4 MG CAP PO SCH (20:23)
[2021-05-16] MEDS ORDERED: METOPROLOL TART 12.5 MG PER 1/2 TAB PO ONE (20:30)
[2021-05-16 22:00] VITALS: BP 96/42
[2021-05-16 23:00] VITALS: O2SAT 86
[2021-05-17] VITALS: BP 118/60
[2021-05-17 06:00] VITALS: BP 96/61; O2SAT 93
[2021-05-17 06:27] LABS: BASO % 0.1 % (0.0-1.0); HEMOGLOBIN 9.8 g/dl (13.5-17.5); LYMPH # 0.6 10^3/uL (1.5-5.0); LYMPH % 5.7 % (24.0-44.0); MEAN CORPUSCULAR HEMOGLOBIN 24.7 pg (27.0-33.0); MEAN CORPUSCULAR HGB CONC 30.6 g/dl (32.0-36.5); MEAN CORPUSCULAR VOLUME 80.6 fl (80.0-96.0); MONO # 0.3 10^3/uL (0.0-0.8); MONO % 3.2 % (2.0-8.0); NEUTROPHILS # 9.4 10^3/uL (1.5-8.5); NEUTROPHILS % 90.3 % (36.0-66.0); PLATELET COUNT, AUTOMATED 216 10^3/uL (150-450); RED BLOOD COUNT 3.97 10^6/uL (4.30-6.10); WHITE BLOOD COUNT 10.4 10^3/uL (4.0-10.0)
[2021-05-17 06:59] LABS: CALCIUM LEVEL 8.8 MG/DL (8.8-10.2); CREATININE FOR GFR 1.45 MG/DL (0.70-1.30); GLOMERULAR FILTRATION RATE 51.1 (>42); POTASSIUM SERUM 4.3 MEQ/L (3.5-5.1); VANCOMYCIN LEVEL TROUGH 17.9 UG/ML (10.0-20.0)
[2021-05-17 07:00] VITALS: BP 116/74
[2021-05-17] MEDS: VANCOMYCIN HCL 750 MG, VIAL MATE ADAPTER 1 EACH in NS 250 ML IV SCH ×2 (08:00→20:03)
[2021-05-17] MEDS: HumaLOG INSULIN (NovoLOG) PER UNIT SC SCH ×4 (09:24→20:07)
[2021-05-17] MEDS: LACTOBACILLUS ACIDOPHILUS CAP (BACID) PO SCH (09:24)
[2021-05-17] MEDS: FINASTERIDE 5 MG TAB PO SCH (09:25)
[2021-05-17] MEDS: methylPREDNISolone 125MG 2ML VIAL IV SCH ×3 (09:26→17:35)
[2021-05-17] MEDS: SODIUM CHLORIDE NASAL 0.65% SPRAY BTL (OCEAN) SCH ×2 (09:26→20:04)
[2021-05-17] MEDS: FERROUS GLUCONATE 324 MG TAB PO SCH ×2 (09:27→20:04)
[2021-05-17] MEDS: busPIRone 5 MG TAB PO SCH (09:27)
[2021-05-17] MEDS: DOCUSATE SODIUM 100MG CAPSULE PO SCH ×2 (09:27→20:04)
[2021-05-17] MEDS: TORSEMIDE 20 MG TAB PO SCH ×2 (09:27→17:35)
[2021-05-17] MEDS: POTASSIUM CHLORIDE 10 MEQ SR TABLET PO SCH ×2 (09:28→20:04)
[2021-05-17] MEDS: SERTRALINE 100 MG TAB PO SCH (09:28)
[2021-05-17] MEDS: PANTOPRAZOLE 20 MG TAB PO SCH ×2 (09:28→20:06)
[2021-05-17] MEDS: METOPROLOL TART 12.5 MG PER 1/2 TAB PO SCH ×2 (09:29→20:06)
[2021-05-17] MEDS: buPROPion (WELLBUTRIN SR) 100 MG SR TAB PO SCH (09:47)
[2021-05-17] MEDS: ASCORBIC ACID 250 MG TAB PO SCH (09:47)
[2021-05-17] MEDS: TIOTROPIUM INHALER/CAPSULE (SPIRIVA) INH SCH (11:26)
--- NOTE | 2021-05-17 11:26 | IPNPDOC ---
Text Note Date of Service The patient was seen on 05/17/21. NOTE S: Pt seen and evaluated at bedside this AM. Reports continued SOB w/ minimal exertion, dry cough. Denies chest pain, palpitations, abd pain, n/v. Reports improved pain, redness, swelling in right ankle. O: GEN: sitting up in bed, NAD, alert and awake HEENT: NC/AT, EOMI, nasal cannula in place (O2sat 91% on 14L NC) CARDIO: normal heart sounds, irregularly irregular rhythm, RR, no MRG PULM: CTA b/l, no WRR, no crackles, no accessory muscles used ABD: normal BS, soft, nontender, nondistended EXTREMITIES: 2+ b/l pitting pedal edema, normal ROM w/out pain; no tenderness w/ palpation right medial malleolus; missing left hand 3rd digit s/p trauma (chronic) SKIN: skin irritation/breakdown in umbilicus; RLE venous stasis changes w/ ecchymosis overlying ant tibia; Redness, swelling, overlying medial malleolus (improved since 05/16) IMAGING: Echocardiogram (04/10/21): 1. Study is of fair technical quality corresponding to patient's body habitus. Underlying atrial fibrillation with controlled rate. 2. Normal LV size with preserved LV systolic function. 3. Very prominent aortic sclerosis, but only minimal stenosis. 4. No additional significant valvular disease. 5. Normal central venous pressure. 6. Unable to estimate pulmonary artery pressure, but no signs to suggest pulmonary hypertension. 7. Biatrial enlargement. CXR (05/14): Bilateral airspace opacities, without significant change compared to the prior chest x-ray on 04/26/2021 and may represent multifocal pneumonia. Chest CT (05/14): 1. Extensive ground-glass opacities in both lungs, with mild progression in the left upper lobe, lingula, and left lower lobe since the prior CT chest on 04/26/2021. Differential diagnostic considerations include but are not limited to nonspecific interstitial pneumonia, hypersensitivity pneumonitis, respiratory bronchiolitis interstitial lung disease, desquamative interstitial pneumonia, and lymphocytic interstitial pneumonia. 2. Trace right pleural effusion, which has decreased in size compared to the CT chest on 04/26/2021. RLE duplex u/s (05/16): No evidence of right lower extremity deep vein thrombosis. A/P: 70M PMH COPD s/p wedge resection, Idiopathic Pulm Hemosiderosis, diastolic CHF found to have worsened b/l ground glass opacities concerning for acute on chronic hypoxic respiratory failure 2/2 interstitial disease on Cefepime, day3 now on O2sat 91% on 14L NC this AM. #Acute on Chronic hypoxic respiratory failure, most likely 2/2 interstitial disease Pt has been admitted to the hospital 6x's over last 3mo for similar concerns. Recently hospitalized 04/26 for worsening SOB and fluid retention, d/c home 04/27 w/ improved sx and increased home O2 requirement (4L). This AM on 14L NC, O2sat 91% w/ worsening O2sat when ambulating. Resp panel negative. Resp Ab panel pending. Repeat lactate 1.7 (05/15) Blood cx pending Legionella urine Ag pending Pt was on Vanc, d/c (05/15) as per pharmacy due to vanc trough 17.3. Vanc trough now 17.9 On Cefepime, day3 On Solumedrol 80mg Q8H Recommend f/u w/ Pulmonology (Dr. Helms) upon d/c #Possible acute diastolic CHF exacerbation, unlikely Pt does not appear fluid overloaded on clinical exam Most recent echocardiogram (04/10/21), as noted above Hold Lasix Monitor I+Os Monitor daily weight #Acute gout attack, right medial malleolus- improved Duplex RLE u/s negative Denies trauma to area Most likely gout, which has improved w/ steroids. Pt has been on medical terminologist s teroid therapy for interstitial lung disease and tells me that is most likely why has has never had prior gout attack. On Solumedrol 80mg x1dose #Afib RvR Pt has chronic Afib. He continues to be in Afib this AM HR 78. BP 96/61 Metoprolol 12.5mg BID On Xarelto 15mg #Hypokalemia- RESOLVED #COPD s/p wedge resection On Spiriva, Atrovent PRN On Solumedrol 80mg Q8H #CKD3- stable BUN 19, Cr 1.68 Baseline Cr 1.3-1.6 Vanc trough 17.9 #LAKESHIA No home CPAP due to ineffective therapy overnight during hospitalization O2sat overnight 70's. Pt placed on NC and supplemental O2 titrated to 90's. Consider repeat sleep study upon d/c to reevaluate and optimize CPAP settings #DM2 On Insulin SS #HLD On Simvastatin #BPH On Finasteride, Tamulosin #Bipolar disorder On Wellbutrin, Buspar, Zoloft #GERD On Protonix #DVT Prophylaxis On Xarelto DISPO: pending clinical improvement Activity as tolerated w/ fall precautions 2g Na diet, consistent carbs VS,Fishbone, I+O VS, Fishbone, I+O Laboratory Tests 05/17/21 05:58 Vital Signs Date Time Temp Pulse Resp B/P (MAP) Pulse Ox O2 Delivery O2 Flow Rate FiO2 05/17/21 09:29 92 112/73 05/17/21 06:01 92 High Flow Cannula 10.0 05/17/21 06:00 97.0 20 I&O- Last 24 Hours up to 6 AM 05/17/21 05:59 Intake Total 1210 ml Output Total 700 ml Balance 510 ml GME ATTESTATION GME ATTESTATION My faculty preceptor for this patient encounter was physically present during the encounter and was fully available. All aspects of the patient interview, examination, medical decision making process, and medical care plan development were reviewed and approved by the faculty preceptor. The faculty preceptor is aware and concurs with the plan as stated in the body of this note and will attest to such by his/her cosignature. ATTENDING NOTE I, Solitario Peter MD, have independently examined this patient and performed my own physical exam, as well as reviewed the documentation and edited where necessary. I have discussed in detail with the resident / student the findings and plan of treatment as documented by the resident / student and edited their note. I agree with their findings and treatment plan and have edited their documentation. Dana Martinez DO May 17, 2021 11:26 SOLITARIO PETER MD May 23, 2021 13:25
[2021-05-17 12:00] VITALS: O2SAT 91
[2021-05-17] MEDS: CEFEPIME HCL 2 GM in D5W MINI-BAG PLUS 50 ML IV SCH ×3 (12:00)
[2021-05-17 14:00] VITALS: BP 99/58
[2021-05-17] MEDS: RIVAROXABAN 15 MG TAB (XARELTO) PO SCH (20:04)
[2021-05-17] MEDS: SIMVASTATIN 40 MG TAB PO SCH (20:04)
[2021-05-17] MEDS: TAMSULOSIN 0.4 MG CAP PO SCH (20:04)
[2021-05-17 22:00] VITALS: BP 106/65
[2021-05-18] MEDS: CEFEPIME HCL 2 GM in D5W MINI-BAG PLUS 50 ML IV SCH ×2 (00:31→12:26)
[2021-05-18] MEDS: methylPREDNISolone 125MG 2ML VIAL IV SCH ×2 (00:31→09:28)
[2021-05-18 03:04] VITALS: O2SAT 92
[2021-05-18 06:00] VITALS: BP 102/62
[2021-05-18 06:12] LABS: BASO % 0.1 % (0.0-1.0); HEMATOCRIT 33.1 % (42.0-52.0); HEMOGLOBIN 10.2 g/dl (13.5-17.5); LYMPH # 0.7 10^3/uL (1.5-5.0); LYMPH % 4.5 % (24.0-44.0); MEAN CORPUSCULAR HEMOGLOBIN 24.4 pg (27.0-33.0); MEAN CORPUSCULAR HGB CONC 30.8 g/dl (32.0-36.5); MEAN CORPUSCULAR VOLUME 79.2 fl (80.0-96.0); MONO # 0.5 10^3/uL (0.0-0.8); MONO % 3.6 % (2.0-8.0); NEUTROPHILS # 13.1 10^3/uL (1.5-8.5); PLATELET COUNT, AUTOMATED 277 10^3/uL (150-450); RED BLOOD COUNT 4.18 10^6/uL (4.30-6.10); WHITE BLOOD COUNT 14.4 10^3/uL (4.0-10.0)
[2021-05-18 06:34] LABS: CALCIUM LEVEL 8.3 MG/DL (8.8-10.2); CREATININE FOR GFR 1.72 MG/DL (0.70-1.30); GLOMERULAR FILTRATION RATE 41.9 (>42)
[2021-05-18] MEDS: TIOTROPIUM INHALER/CAPSULE (SPIRIVA) INH SCH (07:27)
[2021-05-18 08:36] LABS: VANCOMYCIN LEVEL TROUGH 21.1 UG/ML (10.0-20.0)
[2021-05-18] MEDS: LEVEMIR (INSULIN DETEMIR) 1 UNITS/0.01ML SC SCH (09:27)
[2021-05-18] MEDS: busPIRone 5 MG TAB PO SCH (09:28)
[2021-05-18] MEDS: TORSEMIDE 20 MG TAB PO SCH (09:29)
[2021-05-18] MEDS: LACTOBACILLUS ACIDOPHILUS CAP (BACID) PO SCH (09:29)
[2021-05-18] MEDS: SODIUM CHLORIDE NASAL 0.65% SPRAY BTL (OCEAN) SCH ×2 (09:29→22:27)
[2021-05-18] MEDS: POTASSIUM CHLORIDE 10 MEQ SR TABLET PO SCH (09:30)
[2021-05-18] MEDS: FERROUS GLUCONATE 324 MG TAB PO SCH ×2 (09:30→22:25)
[2021-05-18] MEDS: ASCORBIC ACID 250 MG TAB PO SCH (09:30)
[2021-05-18] MEDS: buPROPion (WELLBUTRIN SR) 100 MG SR TAB PO SCH (09:31)
[2021-05-18] MEDS: SERTRALINE 100 MG TAB PO SCH (09:31)
[2021-05-18] MEDS: HumaLOG INSULIN (NovoLOG) PER UNIT SC SCH ×4 (09:31→22:25)
[2021-05-18] MEDS: FINASTERIDE 5 MG TAB PO SCH (09:31)
[2021-05-18] MEDS: PANTOPRAZOLE 20 MG TAB PO SCH ×2 (09:32→22:25)
[2021-05-18] MEDS: METOPROLOL TART 12.5 MG PER 1/2 TAB PO SCH ×2 (09:32→22:26)
[2021-05-18] MEDS: DOCUSATE SODIUM 100MG CAPSULE PO SCH ×2 (09:32→22:24)
--- NOTE | 2021-05-18 11:40 | IPNPDOC ---
Text Note Date of Service The patient was seen on 05/18/21. NOTE S: Pt seen and evaluated at bedside this AM. Reports improved SOB. His supple mental O2 was titrated down to his baseline on admission (5L) overnight. Denies chest pain, palpitations, abd pain, n/v. Reports improved pain, redness, swelling in right ankle. O: GEN: laying in bed, NAD, awake but drowsy HEENT: NC/AT, EOMI, nasal cannula in place (O2sat 92% on 5L NC) CARDIO: normal heart sounds, irregularly irregular rhythm, RR, no MRG PULM: CTA b/l, no WRR, no crackles, no accessory muscles used ABD: normal BS, soft, nontender, nondistended EXTREMITIES: 2+ b/l pitting pedal edema, normal ROM w/out pain; no tenderness w/ palpation right medial malleolus; missing left hand 3rd digit s/p trauma (chronic) SKIN: skin irritation/breakdown in umbilicus; RLE venous stasis changes w/ ecchymosis overlying ant tibia; localized redness overlying medial malleolus (improved since 05/17) IMAGING: Echocardiogram (04/10/21): 1. Study is of fair technical quality corresponding to patient's body habitus. Underlying atrial fibrillation with controlled rate. 2. Normal LV size with preserved LV systolic function. 3. Very prominent aortic sclerosis, but only minimal stenosis. 4. No additional significant valvular disease. 5. Normal central venous pressure. 6. Unable to estimate pulmonary artery pressure, but no signs to suggest pulmonary hypertension. 7. Biatrial enlargement. CXR (05/14): Bilateral airspace opacities, without significant change compared to the prior chest x-ray on 04/26/2021 and may represent multifocal pneumonia. Chest CT (05/14): 1. Extensive ground-glass opacities in both lungs, with mild progression in the left upper lobe, lingula, and left lower lobe since the prior CT chest on 04/26/2021. Differential diagnostic considerations include but are not limited to nonspecific interstitial pneumonia, hypersensitivity pneumonitis, respiratory bronchiolitis interstitial lung disease, desquamative interstitial pneumonia, and lymphocytic interstitial pneumonia. 2. Trace right pleural effusion, which has decreased in size compared to the CT chest on 04/26/2021. RLE duplex u/s (05/16): No evidence of right lower extremity deep vein thrombosis. A/P: 70M PMH COPD s/p wedge resection, Idiopathic Pulm Hemosiderosis, diastolic CHF found to have worsened b/l ground glass opacities concerning for acute on chronic hypoxic respiratory failure 2/2 interstitial disease on Cefepime, day4 and solumedrol w/ improved supplemental O2 requirement. #Acute on Chronic hypoxic respiratory failure, most likely 2/2 interstitial disease Pt has been admitted to the hospital 6x's over last 3mo for similar concerns. Recently hospitalized 04/26 for worsening SOB and fluid retention, d/c home 04/27 w/ improved sx and increased home O2 requirement (4L). This AM on 5L NC, O2sat 92% w/ worsening O2sat when ambulating. Resp panel negative. Resp Ab panel pending. PNA unlikely. Increased leukocytosis (WBC 14.4) most likely 2/2 steroids Repeat lactate 1.7 (05/15) Blood cx negative after 72hrs Legionella urine Ag pending D/c Vanc (Vanc trough 21.1 on 05/18) On Cefepime, day4/5 Switch Solumedrol 80mg Q8H to 40mg Q8H Recommend f/u w/ Pulmonology (Dr. Helms) upon d/c. Pt will most likely need chronic steroid therapy. #Possible acute diastolic CHF exacerbation, unlikely Pt does not appear fluid overloaded on clinical exam Most recent echocardiogram (04/10/21), as noted above Hold Lasix Switch Torsemide 20mg BID to DAILY Monitor I+Os Monitor daily weight #Acute gout attack, right medial malleolus- improved Duplex RLE u/s negative Denies trauma to area Most likely gout, which has improved w/ steroids. Pt has been on [facility]ci steroid therapy for interstitial lung disease and tells me that is most likely why has has never had prior gout attack. Switch Solumedrol 80mg Q8H to 40mg Q8H #Afib RvR Pt has chronic Afib. He continues to be in Afib this AM HR 76, BP 102/62 Metoprolol 12.5mg BID On Xarelto 15mg #Hypokalemia- RESOLVED #COPD s/p wedge resection On Spiriva, Atrovent PRN Switch Solumedrol 80mg Q8H to 40mg Q8H #CKD3 BUN 45, Cr 1.72. Cr worsened most likely 2/2 restarting pt's Torsemide. Switch Torsemide 20mb BID to DAILY Baseline Cr 1.3-1.6 Vanc trough 21.1 (05/18) #LAKESHIA No home CPAP due to ineffective therapy overnight during hospitalization O2sat overnight 70's. Pt placed on NC and supplemental O2 titrated to 90's. Consider repeat sleep study upon d/c to reevaluate and optimize CPAP settings #DM2 On Insulin SS. BS this AM 222. Pt required total 18U Humalog 05/17. Start Levemir 12U Monitor FSBS, labs #HLD On Simvastatin #BPH On Finasteride, Tamulosin #Bipolar disorder On Wellbutrin, Buspar, Zoloft #GERD On Protonix #DVT Prophylaxis On Xarelto DISPO: possible long-term placement, pending clinical improvement Activity as tolerated w/ fall precautions 2g Na diet, consistent carbs VS,Fishbone, I+O VS, Fishbone, I+O Laboratory Tests 05/18/21 05:45 Vital Signs Date Time Temp Pulse Resp B/P (MAP) Pulse Ox O2 Delivery O2 Flow Rate FiO2 05/18/21 09:32 72 97/59 05/18/21 06:00 96.8 18 96 High Flow Cannula 5.0 I&O- Last 24 Hours up to 6 AM 05/18/21 06:00 Intake Total 2655 ml Output Total 1900 ml Balance 755 ml GME ATTESTATION GME ATTESTATION My faculty preceptor for this patient encounter was physically present during the encounter and was fully available. All aspects of the patient interview, examination, medical decision making process, and medical care plan development were reviewed and approved by the faculty preceptor. The faculty preceptor is aware and concurs with the plan as stated in the body of this note and will attest to such by his/her cosignature. ATTENDING NOTE I, Solitario Peter MD, have independently examined this patient and performed my own physical exam, as well as reviewed the documentation and edited where necessary. I have discussed in detail with the resident / student the findings and plan of treatment as documented by the resident / student and edited their note. I agree with their findings and treatment plan and have edited their documentation. Dana Martinez DO May 18, 2021 11:40 SOLITARIO PETER MD May 23, 2021 13:35
[2021-05-18 14:00] VITALS: BP 139/81
[2021-05-18] MEDS ORDERED: methylPREDNISolone 125MG 2ML VIAL IV SCH (17:30)
[2021-05-18] MEDS: methylPREDNISolone 40MG 1ML VIAL IV SCH (17:52)
[2021-05-18 21:00] VITALS: O2SAT 96
[2021-05-18 22:00] VITALS: BP 123/70
[2021-05-18] MEDS: TAMSULOSIN 0.4 MG CAP PO SCH (22:25)
[2021-05-18] MEDS: SIMVASTATIN 40 MG TAB PO SCH (22:25)
[2021-05-18] MEDS: RIVAROXABAN 15 MG TAB (XARELTO) PO SCH (22:25)
[2021-05-19] MEDS: CEFEPIME HCL 2 GM in D5W MINI-BAG PLUS 50 ML IV SCH (00:14)
[2021-05-19] MEDS: methylPREDNISolone 40MG 1ML VIAL IV SCH ×2 (00:14→08:30)
[2021-05-19 06:00] VITALS: BP 121/72
[2021-05-19 06:11] LABS: BASO % 0.2 % (0.0-1.0); HEMATOCRIT 31.7 % (42.0-52.0); HEMOGLOBIN 9.8 g/dl (13.5-17.5); LYMPH # 0.8 10^3/uL (1.5-5.0); LYMPH % 6.5 % (24.0-44.0); MEAN CORPUSCULAR HEMOGLOBIN 24.6 pg (27.0-33.0); MEAN CORPUSCULAR HGB CONC 30.9 g/dl (32.0-36.5); MEAN CORPUSCULAR VOLUME 79.6 fl (80.0-96.0); MONO % 8.6 % (2.0-8.0); NEUTROPHILS % 82.6 % (36.0-66.0); PLATELET COUNT, AUTOMATED 293 10^3/uL (150-450); RED BLOOD COUNT 3.98 10^6/uL (4.30-6.10); WHITE BLOOD COUNT 12.1 10^3/uL (4.0-10.0)
[2021-05-19 06:38] LABS: CALCIUM LEVEL 8.4 MG/DL (8.8-10.2); CREATININE FOR GFR 1.57 MG/DL (0.70-1.30); GLOMERULAR FILTRATION RATE 46.6 (>42); POTASSIUM SERUM 3.9 MEQ/L (3.5-5.1)
[2021-05-19] MEDS: TIOTROPIUM INHALER/CAPSULE (SPIRIVA) INH SCH (07:29)
[2021-05-19 08:30] VITALS: O2SAT 96
[2021-05-19] MEDS: LEVEMIR (INSULIN DETEMIR) 1 UNITS/0.01ML SC SCH (08:30)
[2021-05-19] MEDS: HumaLOG INSULIN (NovoLOG) PER UNIT SC SCH ×4 (08:30→21:00)
[2021-05-19] MEDS: POTASSIUM CHLORIDE 10 MEQ SR TABLET PO SCH (08:32)
[2021-05-19] MEDS: busPIRone 5 MG TAB PO SCH (08:33)
[2021-05-19] MEDS: DOCUSATE SODIUM 100MG CAPSULE PO SCH ×2 (08:33→21:25)
[2021-05-19] MEDS: LACTOBACILLUS ACIDOPHILUS CAP (BACID) PO SCH (08:33)
[2021-05-19] MEDS: PANTOPRAZOLE 20 MG TAB PO SCH ×2 (08:33→21:26)
[2021-05-19] MEDS: TORSEMIDE 20 MG TAB PO SCH (08:33)
[2021-05-19] MEDS: buPROPion (WELLBUTRIN SR) 100 MG SR TAB PO SCH (08:33)
[2021-05-19] MEDS: SERTRALINE 100 MG TAB PO SCH (08:33)
[2021-05-19] MEDS: METOPROLOL TART 12.5 MG PER 1/2 TAB PO SCH ×2 (08:34→21:26)
[2021-05-19] MEDS: FERROUS GLUCONATE 324 MG TAB PO SCH ×2 (08:34→21:26)
[2021-05-19] MEDS: FINASTERIDE 5 MG TAB PO SCH (08:34)
[2021-05-19] MEDS: SODIUM CHLORIDE NASAL 0.65% SPRAY BTL (OCEAN) SCH ×2 (08:35→21:26)
[2021-05-19 09:09] LABS: ASPERGILLUS FUMIGATUS AB Negative (Negative); AUREOBASIDIUM PULLULANS Negative (Negative); MICROPOLYSPORA FAENI AB Negative (Negative); PIGEON SERUM AB Negative (Negative); THERMOACTINOMYCES SACCHARI Negative (Negative); THERMOACTINOMYCES VULGARIS Negative (Negative)
[2021-05-19] MEDS: ASCORBIC ACID 250 MG TAB PO SCH (09:54)
[2021-05-19 14:00] VITALS: BP 124/80
[2021-05-19] MEDS ORDERED: PRED20TA PO ×2 (15:37→15:49)
--- NOTE | 2021-05-19 19:39 | DS.PDOC ---
Discharge Summary General Date of Admission May 16, 2021 at 16:10 Date of Discharge 05/19/21 Attending Physician: SOLITARIO GUEVARA MD Discharge Summary PROCEDURES PERFORMED DURING STAY: None ADMITTING DIAGNOSES: 1. Acute on chronic respiratory failure 2/2 PNA 2. Diastolic CHF exacerbation 3. RLE redness/swelling DISCHARGE DIAGNOSES: 1. Acute on chronic hypoxic respiratory failure 2/2 progressive interstitial lung disease 2. Acute gout flare up COMPLICATIONS/CHIEF COMPLAINT: Pneumonia. HISTORY OF PRESENT ILLNESS: Rajesh is 70M PMH idiopathic pulmonary hemosiderosis, COPD s/p wedge resection, diastolic CHF, CAD, HLD, LAKESHIA on CPAP, CKD3B, non-insulin dependent T2DM who presented to ED w/ worsening SOB and leg swelling over last 2days. Of note, he has been admitted to the hospital 6x's over last 3mo for similar presentation (worsening SOB). He was recently hospitalized 04/26 for worsening SOB and fluid retention and d/c home 04/27 w/ improved sx, prednisone taper, and increased home O2 requirement (4L). Reports he "felt good for a few days" then progressively worse. Pt also had previous admissions mid March and January of this year. Pt reports he has at baseline dry cough. Reports generalized weakness, worsening dyspnea on exertion and chills recently. He lives at home with his daughter (caregiver), son-in-law, and ex-. Denies tee, sinus congestion, sore throat, productive cough, palpitations, chest pain, n/v/d, abdominal pain, sensory changes or syncope. Pt reports trouble walking on his right foot over the last 2 days, with increased redness and swelling. He denies trauma. Reports that he thinks he has gout but denies a history of gout. No obvious wound to the right lower extremity. Of note, patient tolerating 5 L nasal cannula ABG shows compensation. Chest x- ray shows multifocal pneumonia. Respiratory PCR negative. CT chest reported extensive groundglass opacities in both lungs with mild progression on the left upper lobe look well and left lower lobe since previous CT on the . Also mentioned trace right pleural effusion which has decreased in size. BTNP over 3100; last on file 1302. WBCs 13.6. HOSPITAL COURSE: Pt admitted and started on Vancomycin, Levaquin, Zosyn. Vancomycin was managed by Pharmacy w/ frequent vanc level troughs and his vanc was held for 3days when his trough returned elevated (17.3 on 05/16, 17.9 on 05/17, 21.1 on 05/18). Levaquin and Zosyn were d/c and pt was started on Cefepime. Resp panel negative, Resp Ab panel pending, Legionella urine Ag pending. Blood cx remained negative. Lactate (816 AM) 2.1, repeat 3.9, followed by repeat 2.3. Lactic acidosis most likely 2/2 decreased perfusion, as pt was initially diures ed due to suspicion for CHF exacerbation. Repeat lactate 1.7 (816 PM) following adequate perfusion by withholding diuresis. Pt's pulmonary exam during hospitalization remained unremarkable w/out significant crackles, wheezing, rales, rhonchi. Cefepime and Vancomycin were d/c prior to discharge, following total 5day abx course, due to low suspicion for acute infxn (PNA). Pt continued to experience drops in O2sat (70's), especially noted w/ minimal activity. His supplemental O2 was progressively titrated up to 14L (05/17). He was started on Solumedrol 80mg Q8H w/ improved O2sat requirement (5L) and was titrated down to Solumedrol 40mg Q8H. He was seen and evaluated by PT who noted significant decrease in pt's O2sat (into 70's) w/ minimal activity. PT recommended home w/ services w/ the possible rehab prior to returning home to improve pt's independence, activity tolerance, and reduce burden on family. Pt and family refused rehabilitation or long-term placement, and pt requests home w/ services and 24/ care from his daughter. Solumedrol was d/c and pt switched to Prednisone 40mg PO DAILY. He was discharged on new supplemental O2 baseline of 5L. Acute diastolic CHF exacerbation remained unlikely, given pt's euvolemic status and insignificant clinical presentation for fluid overload. No JVD, crackles on lung auscultation, and insignificant b/l LE edema throughout hospitalization. M ost recent echocardiogram (04/10/21) noted below. Pt's Torsemide was held due to increased lactate and was restarted prior to discharge. Pt's RLE redness and swelling was localized to distal portion and more significant around medial malleolus. Pt endorsed significant tenderness w/ minimal palpation of right medial and lateral malleoli. Ddimer 2183.24. Uric acid 9.9. RLE duplex u/s performed 05/17 and no DVT was reported. Pt suspected to have acute gout flare up and was started on Solumedrol 80mg Q8H. He reported significant improvement in sx the following day and tells me he has been on chronic steroids for interstitial lung disease and thinks this is why he has not had gout flare ups before. He was found to be in Afib RvR w/ HR 102-128 that was well controlled w/ increased home Metoprolol from 12.5mgBID to 25mg BID. Metoprolol was decreased back to pt's home dose (12.5mg BID) as HR consistently <100. He was restarted on home Torsemide 05/17 and tolerated it well. Pt was also noted to have asx hypokalemia on 05/17 which was effectively treated w/ K+ repletion. Pt found to have hyperglycemia requiring SA insulin prior to meals. When starting Solumedrol, his POC glucose and fasting BS was found to be elevated and he was noted to require 18U Humalog. He was started on 12U Levemir, which was discontinued upon discharge. DISCHARGE MEDICATIONS: Please see below. ALLERGIES: Please see below. PHYSICAL EXAMINATION ON DISCHARGE: VITAL SIGNS: Please see below. GENERAL: laying in bed, NAD, sleeping but arousable w/ verbal stimuli HEENT: NC/AT, EOMI, nasal cannula in place (O2sat 92% on 5L NC), moist mucous membranes NECK: supple CARDIOVASCULAR EXAMINATION: normal heart sounds, irregularly irregular rhythm, RR, no MRG RESPIRATORY EXAMINATION: CTA b/l, no WRR, no crackles, no accessory muscles used ABDOMINAL EXAMINATION: normal BS, soft, nontender, nondistended EXTREMITIES: 2+ b/l pitting edema, normal ROM SKIN: no new abrasions/rashes/wounds NEUROLOGICAL EXAMINATION: no FND PSYCHIATRIC EXAMINATION: oriented, normal mood/affect LABORATORY DATA: Please see below. IMAGING: Echocardiogram (04/10/21): 1. Study is of fair technical quality corresponding to patient's body habitus. Underlying atrial fibrillation with controlled rate. 2. Normal LV size with preserved LV systolic function. 3. Very prominent aortic sclerosis, but only minimal stenosis. 4. No additional significant valvular disease. 5. Normal central venous pressure. 6. Unable to estimate pulmonary artery pressure, but no signs to suggest pulmonary hypertension. 7. Biatrial enlargement. CXR (05/14): Bilateral airspace opacities, without significant change compared to the prior chest x-ray on 04/26/2021 and may represent multifocal pneumonia. Chest CT (05/14): 1. Extensive ground-glass opacities in both lungs, with mild progression in the left upper lobe, lingula, and left lower lobe since the prior CT chest on 04/26/2021. Differential diagnostic considerations include but are not limited to nonspecific interstitial pneumonia, hypersensitivity pneumonitis, respiratory bronchiolitis interstitial lung disease, desquamative interstitial pneumonia, and lymphocytic interstitial pneumonia. 2. Trace right pleural effusion, which has decreased in size compared to the CT chest on 04/26/2021. RLE duplex u/s (05/16): No evidence of right lower extremity deep vein thrombosis. PROGNOSIS: fair ACTIVITY: As tolerated DIET: 2g Na+ diet, consistent carbs DISCHARGE PLAN: 1. Acute on chronic hypoxic respiratory failure Home w/ services to continue progressing independince and activity tolerance Maintain 5L O2 supplement via Nasal Cannula Continue Prednisone 40mg PO DAILY F/u PCP, 7-10days F/u Pulmonology (Dr. Helms), 7-10days 2. LAKESHIA on CPAP CPAP was ineffective during hospitalization and pt may require adjustment in settings. Recommend further evaluation and possible studies to determine adequate therapy. F/u Pulmonology, 7-10days 3. Acute gout flare up Continue Prednisone 40mg PO Daily 4. non-insulin dependent T2DM Resume Glipizide, Metformin. F/u PCP, 7-10days DISPOSITION: home w/ services DISCHARGE INSTRUCTIONS: 1. F/u PCP, 7-10days 2. F/u Pulmonology, 7-10days ITEMS TO FOLLOWUP ON ON OUTPATIENT: 1. PCP- T2DM management, gout 2. 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 Vital Signs/I&Os Vital Signs Date Time Temp Pulse Resp B/P (MAP) Pulse Ox O2 Delivery O2 Flow Rate FiO2 05/19/21 14:00 97.5 73 16 124/80 (95) 92 High Flow Cannula 5.0 I&O- Last 24 Hours up to 6 AM 05/19/21 06:00 Intake Total 1820 ml Output Total 1575 ml Balance 245 ml Laboratory Data Labs 24H Laboratory Tests 2 05/18/21 20:22: Bedside Glucose (Misc Panel) 294H 05/19/21 05:51: Immature Granulocyte % (Auto) 2.1, Neutrophils (%) (Auto) 82.6H, Lymphocytes (%) (Auto) 6.5L, Monocytes (%) (Auto) 8.6H, Eosinophils (%) (Auto) 0.0, Basophils (%) (Auto) 0.2, Neutrophils # (Auto) 10.0H, Lymphocytes # (Auto) 0.8L, Monocytes # (Auto) 1.0H, Eosinophils # (Auto) 0.0, Basophils # (Auto) 0.0, Nucleated Red Blood Cells % (auto) 0.0, Anion Gap 6L, Glomerular Filtration Rate 46.6, Calcium Level 8.4L 05/19/21 12:23: Bedside Glucose (Misc Panel) 204H 05/19/21 16:40: Bedside Glucose (Misc Panel) 233H CBC/BMP Laboratory Tests 05/19/21 05:51 FSBS Laboratory Tests Test 05/18/21 20:22 05/19/21 12:23 05/19/21 16:40 Range/Units Bedside Glucose (Misc Panel) 294 204 233 83-110 MG/DL Microbiology Microbiology 05/14/21 Blood Culture - Preliminary, Resulted No Growth after 72 hours. All specime... 05/14/21 Blood Culture - Preliminary, Resulted No Growth after 72 hours. All specime... Discharge Medications Scheduled Ascorbic Acid (Vitamin C) 250 Mg Tablet, 250 MG PO DAILY, (Reported) Bupropion HCl (Bupropion HCl Sr) 100 Mg Tab.sr.12h, 100 MG PO DAILY, (Reported) Buspirone HCl (Buspirone HCl) 15 Mg Tablet, 15 MG PO DAILY, (Reported) Cholecalciferol (Vitamin D3) (Vitamin D3) 25 Mcg Tablet, 25 MCG PO DAILY, (Reported) Docusate Sodium (Docusate Sodium) 100 Mg Cap, 200 MG PO BID, (Reported) Ferrous Gluconate (Ferrous Gluconate) 324 Mg Tab, 648 MG PO BID, (Reported) Finasteride (Finasteride) 5 Mg Tab, 5 MG PO DAILY, (Reported) Glipizide (Glipizide) 5 Mg Tab, 2.5 MG PO DAILY, (Reported) TAKES BEFORE BREAKFAST Metoprolol Tartrate (Metoprolol Tartrate) 25 Mg Tab, 12.5 MG PO BID, (Reported) Pantoprazole Sodium (Pantoprazole Sodium) 20 Mg Tablet.dr, 20 MG PO BID, (Reported) Potassium Chloride (Potassium Chloride) 10 Meq Tab.er.prt, 20 MEQ PO BID, (Reported) Prednisone (Prednisone) 20 Mg Tablet, 40 MG PO DAILY Rivaroxaban (Xarelto) 15 Mg Tablet, 15 MG PO QHS, (Reported) Sertraline Hcl (Zoloft) 100 Mg Tablet, 200 MG PO DAILY, (Reported) Simvastatin (Zocor) 80 Mg Tablet, 40 MG PO QHS, (Reported) Tamsulosin HCl (Flomax) 0.4 Mg Capsule, 0.4 MG PO QHS, (Reported) Tiotropium [place] (Spiriva Respimat) 4 Gm Mist.inhal, 2 PUFFS INH DAILY, (Reported) Torsemide (Torsemide) 20 Mg Tablet, 20 MG PO BID, (Reported) Scheduled PRN Cetirizine HCl (Cetirizine HCl) 10 Mg Tablet, 10 MG PO DAILY PRN for ALLERGIES, (Reported) Clotrimazole (Clotrimazole) 1% 30GM Cream..g., 1 APPLIC TOP BID PRN for RASH, (Reported) APPLIES TO GROIN AND LEGS NEEDED FOR YEAST INFECTION Melatonin (Melatonin) 5 Mg Tablet, 5 MG PO QHS PRN for INSOMNIA, (Reported) Simethicone (Simethicone) 80 Mg Tab.chew, 160 MG PO ACHS PRN for GAS PAIN, (Reported) Allergies Coded Allergies: amlodipine (Verified Allergy, Unknown, 04/27/19) atenolol (Verified Allergy, Unknown, 04/27/19) albuterol (Verified Adverse Reaction, Mild, increased HR, 04/01/20) GME ATTESTATION GME ATTESTATION My faculty preceptor for this patient encounter was physically present during the encounter and was fully available. All aspects of the patient interview, examination, medical decision making process, and medical care plan development were reviewed and approved by the faculty preceptor. The faculty preceptor is aware and concurs with the plan as stated in the body of this note and will attest to such by his/her cosignature. ATTENDING NOTE I, Solitario Guevara MD, have independently examined this patient and performed my own physical exam, as well as reviewed the documentation and edited where necessary. I have discussed in detail with the resident / student the findings and plan of treatment as documented by the resident / student and edited their note. I agree with their findings and treatment plan and have edited their documentation. Total time spent on this discharge including coordination of care, review of chart documentation and actual patient contact is around 35 minutes Dana Martinez DO May 19, 2021 19:36 SOLITARIO GUEVARA MD May 23, 2021 13:59
[2021-05-19] MEDS: SIMVASTATIN 40 MG TAB PO SCH (21:25)
[2021-05-19] MEDS: RIVAROXABAN 15 MG TAB (XARELTO) PO SCH (21:25)
[2021-05-19] MEDS: TAMSULOSIN 0.4 MG CAP PO SCH (21:25)
[2021-05-19 22:00] VITALS: BP 141/77
[2021-05-20 01:34] VITALS: O2SAT 90
[2021-05-20 06:00] VITALS: BP 96/52
[2021-05-20 07:04] LABS: BASO # 0.1 10^3/uL (0.0-0.2); BASO % 0.6 % (0.0-1.0); EOS # 0.2 10^3/uL (0.0-0.5); EOS % 2.1 % (0.0-3.0); HEMATOCRIT 33.9 % (42.0-52.0); HEMOGLOBIN 10.3 g/dl (13.5-17.5); LYMPH # 1.1 10^3/uL (1.5-5.0); LYMPH % 14.4 % (24.0-44.0); MEAN CORPUSCULAR HEMOGLOBIN 24.3 pg (27.0-33.0); MEAN CORPUSCULAR HGB CONC 30.4 g/dl (32.0-36.5); MEAN CORPUSCULAR VOLUME 80.1 fl (80.0-96.0); MONO % 12.7 % (2.0-8.0); NEUTROPHILS # 5.2 10^3/uL (1.5-8.5); NEUTROPHILS % 65.9 % (36.0-66.0); PLATELET COUNT, AUTOMATED 289 10^3/uL (150-450); RED BLOOD COUNT 4.23 10^6/uL (4.30-6.10); WHITE BLOOD COUNT 7.9 10^3/uL (4.0-10.0)
[2021-05-20 07:22] LABS: CALCIUM LEVEL 8.4 MG/DL (8.8-10.2); CREATININE FOR GFR 1.58 MG/DL (0.70-1.30); GLOMERULAR FILTRATION RATE 46.3 (>42); POTASSIUM SERUM 3.6 MEQ/L (3.5-5.1)
[2021-05-20] MEDS: TIOTROPIUM INHALER/CAPSULE (SPIRIVA) INH SCH (07:22)
[2021-05-20] MEDS: HumaLOG INSULIN (NovoLOG) PER UNIT SC SCH ×2 (07:30→12:00)
[2021-05-20] MEDS: LEVEMIR (INSULIN DETEMIR) 1 UNITS/0.01ML SC SCH (08:40)
[2021-05-20] MEDS: LACTOBACILLUS ACIDOPHILUS CAP (BACID) PO SCH (08:42)
[2021-05-20 08:43] VITALS: BP 104/62
[2021-05-20] MEDS: buPROPion (WELLBUTRIN SR) 100 MG SR TAB PO SCH (08:43)
[2021-05-20] MEDS: METOPROLOL TART 12.5 MG PER 1/2 TAB PO SCH (08:43)
[2021-05-20] MEDS: ASCORBIC ACID 250 MG TAB PO SCH (08:43)
[2021-05-20] MEDS: POTASSIUM CHLORIDE 10 MEQ SR TABLET PO SCH (08:43)
[2021-05-20] MEDS: SERTRALINE 100 MG TAB PO SCH (08:44)
[2021-05-20] MEDS: FINASTERIDE 5 MG TAB PO SCH (08:44)
[2021-05-20] MEDS: FERROUS GLUCONATE 324 MG TAB PO SCH (08:44)
[2021-05-20] MEDS: DOCUSATE SODIUM 100MG CAPSULE PO SCH (08:44)
[2021-05-20] MEDS: TORSEMIDE 20 MG TAB PO SCH (08:45)
[2021-05-20] MEDS: SODIUM CHLORIDE NASAL 0.65% SPRAY BTL (OCEAN) SCH (08:45)
[2021-05-20] MEDS: busPIRone 5 MG TAB PO SCH (08:58)
[2021-05-20] MEDS: PANTOPRAZOLE 20 MG TAB PO SCH (08:58)
[2021-05-20] MEDS ORDERED: predniSONE 20 MG TAB PO SCH (09:00)
--- NOTE | 2021-05-20 10:37 | IPNPDOC ---
Text Note Date of Service The patient was seen on 05/20/21. NOTE S: Pt seen and evaluated this AM. Reports improved SOB and RLE pain. His O2sat has remained appropriate (90-96%) on baseline supplemental O2 (5L). Denies chest pain, palpitations, abd pain, n/v. Reports improved pain, redness, swelling in right ankle. Pt was optimized for d/c yesterday (05/19) and, it appears, pt and family had concerns w/ d/c home at that time. I was unable to contact pt's daughter yesterday, but spoke w/ her this AM. She tells me his current O2 concentrator at home only goes up to 5L and he has a transportable O2 concentrator that goes up to 6L. Family's concern is w/ regards to pt's consistent desaturation (O2sat 60- 80's) w/ minimal activity and inability to titrate O2 greater than his baseline 5L at home. According to prior PT evaluations, pt seems to be recovering to O2sat 90's within 2min when resting, tho it is unclear whether supplemental O2 is being adjusted/titrated higher than 5L. Discussed w/ pt's daughter that we will perform Ambulatory O2 therapy assessment to see if he meets criteria for higher O2 concentrator for home. Pt's daughter expressed understanding and is in agreement. 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 Study is of fair technical quality corresponding to patient's body habitus. Underlying atrial fibrillation with controlled rate. 2. Normal LV size with preserved LV systolic function. 3. Very prominent aortic sclerosis, but only minimal stenosis. 4. No additional significant valvular disease. 5. Normal central venous pressure. 6. Unable to estimate pulmonary artery pressure, but no signs to suggest pulmon kar hypertension. 7. Biatrial enlargement. CXR (05/14): Bilateral airspace opacities, without significant change compared to the prior chest x-ray on 04/26/2021 and may represent multifocal pneumonia. Chest CT (05/14): 1. Extensive ground-glass opacities in both lungs, with mild progression in the left upper lobe, lingula, and left lower lobe since the prior CT chest on 04/26/2021. Differential diagnostic considerations include but are not limited to nonspecific interstitial pneumonia, hypersensitivity pneumonitis, respiratory bronchiolitis interstitial lung disease, desquamative interstitial pneumonia, and lymphocytic interstitial pneumonia. 2. Trace right pleural effusion, which has decreased in size compared to the CT chest on 04/26/2021. RLE duplex u/s (05/16): No evidence of right lower extremity deep vein thrombosis. A/P: 70M PMH COPD s/p wedge resection, Idiopathic Pulm Hemosiderosis, diastolic CHF found to have worsened b/l ground glass opacities concerning for acute on chronic hypoxic respiratory failure 2/2 interstitial disease on Prednisone 40mg PO DAILY w/ improved supplemental O2 requirement. Pt was optimized for d/c 05/19, but family had concerns about his O2 requirement w/ ambulation and requested further assessment and possible order for higher O2 concentrator at home, prior to d/c. At this time, he remains optimized for d/c. Please refer to discharge summary from 05/19. #Acute on Chronic hypoxic respiratory failure, most likely 2/2 interstitial dise ase- improved Pt has been admitted to the hospital 6x's over last 3mo for similar concerns. Recently hospitalized 04/26 for worsening SOB and fluid retention, d/c home 04/27 w/ improved sx and increased home O2 requirement (4L). This AM on 5L NC, O2sat 96% w/ worsening O2sat when ambulating. Resp panel negative. Resp Ab panel pending. PNA unlikely. No leukocytosis. Repeat lactate 1.7 (05/15) Blood cx negative after 72hrs Legionella urine Ag pending On Prednisone 40mg PO DAILY Ambulatory O2 therapy assessment performed by PT. Pt O2sat dropped to 84% on 5L w/ ambulation, but recovered within 2min back to 90%. Supplemental O2 requirement was not adjusted. Pt advised to rest as needed if O2 sat drops w/ ambulation. 5L O2 appropriate for home at this time. If pt requires greater concentration, can f/u PCP or Pulmonology for further recommendations. Recommend f/u w/ Pulmonology (Dr. Helms) upon d/c. Pt will most likely need chronic steroid therapy. #Possible acute diastolic CHF exacerbation, ruled out, not in exacerbation today Pt does not appear fluid overloaded on clinical exam Most recent echocardiogram (04/10/21), as noted above On Torsemide 20mg DAILY Monitor I+Os Monitor daily weight #Acute gout attack, right medial malleolus- improved Duplex RLE u/s negative Denies trauma to area Most likely gout, which has improved w/ steroids. Pt has been on longterm steroid therapy for interstitial lung disease and tells me that is most likely why has has never had prior gout attack. On Prednisone 40mg PO DAILY #Afib RvR Pt has chronic Afib. He continues to be in Afib this AM HR 95, BP 96/52. Repeat BP 104/62 Metoprolol 12.5mg BID On Xarelto 15mg #Hypokalemia- RESOLVED #COPD s/p wedge resection On Spiriva, Atrovent PRN On Prednisone 40mg PO DAILY #CKD3 BUN 50, Cr 1.58 On Torsemide 20mg DAILY Baseline Cr 1.3-1.6 #LAKESHIA No home CPAP due to ineffective therapy overnight during hospitalization as O2sat overnight 70's. Pt placed on NC and supplemental O2 titrated to 90's. Consider repeat sleep study upon d/c to reevaluate and optimize CPAP settings #DM2 On Insulin SS. BS this AM 212. Pt required total 18U Humalog 05/19. On Levemir 12U Monitor FSBS, labs #HLD On Simvastatin #BPH On Finasteride, Tamulosin #Bipolar disorder On Wellbutrin, Buspar, Zoloft #GERD On Protonix #DVT Prophylaxis On Xarelto DISPO: home w/ services and 22/04 care, pending ambulatory O2 therapy assessment Activity as tolerated w/ fall precautions 2g Na diet, consistent carbs VS,Fishbone, I+O VS, Fishbone, I+O Laboratory Tests 05/20/21 06:07 Vital Signs Date Time Temp Pulse Resp B/P (MAP) Pulse Ox O2 Delivery O2 Flow Rate FiO2 05/20/21 08:43 88 104/62 05/20/21 06:00 98.6 19 95 High Flow Cannula 5.0 I&O- Last 24 Hours up to 6 AM 05/20/21 06:00 Intake Total 450 ml Output Total 2150 ml Balance -1700 ml GME ATTESTATION GME ATTESTATION My faculty preceptor for this patient encounter was physically present during the encounter and was fully available. All aspects of the patient interview, examination, medical decision making process, and medical care plan development were reviewed and approved by the faculty preceptor. The faculty preceptor is aware and concurs with the plan as stated in the body of this note and will attest to such by his/her cosignature. ATTENDING NOTE I, Giuseppe Ashford DO, have independently examined this patient and performed my own physical exam, as well as reviewed the documentation and edited where necessary. I have discussed in detail with the resident / student the findings and plan of treatment as documented by the resident / student and edited their note. I agree with their findings and treatment plan and have edited their documentation. I will continue to follow the patient during this hospital stay. Dana Martinez DO May 20, 2021 10:37 GIUSEPPE ASHFORD DO May 20, 2021 17:55
== END 2021-05-20 13:55 | disposition home or self-care (01) | DRG 196 ==
LOC: M ED 21:45 → M ED INP 21:46 → ENRESERV 05-15 14:00 → M MSPAV 05-15 16:01 → OBSVTOIN 05-16 16:10
PROVIDERS: ADMIT Internal Medicine; ATTEND Internal Medicine
DX: J84.9 Interstitial pulmonary disease, unspecified (principal); J96.21 Acute and chronic respiratory failure with hypoxia; I50.32 Chronic diastolic (congestive) heart failure; E87.2 Acidosis; I13.0 Hypertensive heart and chronic kidney disease with heart failure and stage 1 through stage 4 chronic kidney disease, or unspecified chronic kidney disease; I48.20 Chronic atrial fibrillation, unspecified; J84.03 Idiopathic pulmonary hemosiderosis; E83.19 Other disorders of iron metabolism; J44.9 Chronic obstructive pulmonary disease, unspecified; I25.10 Atherosclerotic heart disease of native coronary artery without angina pectoris; E78.5 Hyperlipidemia, unspecified; G47.33 Obstructive sleep apnea (adult) (pediatric); M10.071 Idiopathic gout, right ankle and foot; Z66 Do not resuscitate; N18.30 Chronic kidney disease, stage 3 unspecified; N40.0 Benign prostatic hyperplasia without lower urinary tract symptoms; E11.22 Type 2 diabetes mellitus with diabetic chronic kidney disease; Z90.2 Acquired absence of lung [part of]; Z98.41 Cataract extraction status, right eye; Z96.1 Presence of intraocular lens; Z20.822 Contact with and (suspected) exposure to COVID-19; E66.9 Obesity, unspecified; Z87.891 Personal history of nicotine dependence; Z79.01 Long term (current) use of anticoagulants; Z79.84 Long term (current) use of oral hypoglycemic drugs; Z79.899 Other long term (current) drug therapy; Z88.8 Allergy status to other drugs, medicaments and biological substances; Z99.81 Dependence on supplemental oxygen; Z68.35 Body mass index [BMI] 35.0-35.9, adult